=== PATIENT | female | born 2000 | race Two or more races ===

== ENCOUNTER 2022-11-27 15:40 | Outpatient (OUT) | payer OTHER, SELFPAY ==
[2022-11-27 16:36] LABS: Hematocrit 35.5 % (36.0-48.0); Hemoglobin 11.7 g/dL (12.0-16.0); Mean Corpuscular Hemoglobin 29.7 pg (26.7-34.0); Mean Corpuscular Volume 90.1 fL (81.0-99.0); Mean Platelet Volume 10.4 fL (9.5-13.5); Platelet Count 168 10^3/uL (150-450); Red Blood Count 3.94 10^6/uL (4.20-5.40); White Blood Count 13.2 10^3/uL (4.0-11.0)
[2022-11-27 16:50] LABS: Glucose 1 Hour 117 mg/dL
[2022-11-27 17:08] LABS: Band Neutrophils Absolute 0.5 10^3/uL (0.0-0.3); Eosinophils Absolute Manual 0.13 10^3/uL (0.00-0.70); Lymphocytes Absolute Manual 1.84 10^3/uL (1.20-3.80); Monocytes Absolute Manual 1.32 10^3/uL (0.30-0.80); Segmented Neut Absolute Manual 8.71 10^3/uL (1.4-6.5)
[2022-11-27 17:09] LABS: Metamyelocytes Absolute Manual 0.26
== END 2022-11-27 15:41 ==
LOC: LAB 15:40
PROVIDERS: PCP Obstetrics & Gynecology; Visit Provider Physician Assistant
DX: Z13.1 Encounter for screening for diabetes mellitus (principal)
CPT/HCPCS: 36415; 82950; 85007; 85025; 86850; 86900; 86901

== ENCOUNTER 2022-11-28 07:32 | Outpatient (RCR) | payer OTHER, SELFPAY ==
[2022-11-28 13:03] VITALS: BP 107/69; PULSE 94; RESP 16; TEMP 36.6; O2SAT 95
[2022-11-28] MEDS: RHO(D) IMMUNE GLOBULIN 1,500 UNIT SYRINGE 1500 UNIT IM (13:13)
--- NOTE | 2022-11-28 13:31 | PC.NURSE ---
1303: Pt. to [facility] amb per self. Seated in recliner. VSS. Blood type verified. Pt.given information about Rhophylac and questions addressed. Pt. medicated with Rhophylac 1500IU IM to left dorsal gluteal. Small amount of bleeding to site. Bandaid applied. Pt tolerated with minimal c/o pain. Remains in recliner for observation. Denies needs. 1330: Pt. without s&s of adverse reaction. Pt. d/c'd amb. to home.
== END 2022-12-07 23:59 | disposition home or self-care (01) ==
LOC: INF 07:32
PROVIDERS: PCP Obstetrics & Gynecology; Visit Provider Obstetrics & Gynecology
DX: O26.893 Other specified pregnancy related conditions, third trimester (principal); Z67.91 Unspecified blood type, Rh negative
CPT/HCPCS: 36415; 86850; 86900; 86901; 96372; J2790

== ENCOUNTER 2022-12-18 14:09 | Outpatient (OUT) | payer OTHER, SELFPAY ==
--- NOTE | 2022-12-18 14:09 | US_ITS ---
The [address] [address] Patient Name: SIDNEY CANDELARIO MRN: [id number] date: 2000 Sex: F Assigned Patient Location: US Current Patient Location: Accession/Order Number: [id number] Exam Date: 12/18/2022 14:10 Report Date: 12/18/2022 16:01 At the request of: MAGDA MCKENNA Procedure: US OB growth EXAMINATION: US OB growth HISTORY: SIZE INCONSISTENT WITH DATES COMPARISON: No relevant comparison available. FINDINGS: Heart Rate: 163.0 bpm Number: 1.0 Position: CEPHALIC Amniotic Fluid Volume: 10.7 cm Maximum Vertical Pocket: 3.5 cm BIOMETRY: BPD: 8.1 cm cm; 32 weeks 3 days; 9% HC: 30.7 cmcm; 34 weeks 1 days; 20% AC: 29.6 cm cm; 33 weeks 4 days; 40% FL: 6.6 cm cm; 34 weeks 0 days; 41% % EFW: 2241.9 grams; 33% FL/AC: 22.4 FL/BPD: 82.0 HC/AC: 1.0 GESTATIONAL AGE: Age by EDC: 34 weeks 0 days SAMIR by EDC: 01/29/2023 Age by US: 33 weeks 4 days SAMIR by US: 02/01/2023 US/US OB growth IMPRESSION: 1. Single live intrauterine with growth detailed above. Electronically authenticated by: CAMELIA MENDEZ Date: 12/18/2022 16:01
== END 2022-12-18 14:10 | disposition home or self-care (01) ==
LOC: US 14:09
PROVIDERS: PCP Obstetrics & Gynecology; Visit Provider Obstetrics & Gynecology
DX: O26.843 Uterine size-date discrepancy, third trimester (principal); Z3A.34 34 weeks gestation of pregnancy
CPT/HCPCS: 76816

== ENCOUNTER 2023-01-01 21:00 | Outpatient (REF) | payer OTHER, SELFPAY | END 2023-01-01 21:01 | disposition home or self-care (01) | LOC: LAB 21:00 | PROVIDERS: PCP Obstetrics & Gynecology; Visit Provider Obstetrics & Gynecology | DX: Z34.93 Encounter for supervision of normal pregnancy, unspecified, third trimester (principal) | CPT/HCPCS: 87081 ==

== ENCOUNTER 2023-01-22 04:55 | Inpatient (IN) | payer OTHER, SELFPAY ==
[2023-01-22] VITALS (49 sets, daily range): BP systolic 88–145; BP diastolic 49–79; PULSE 77–137; RESP 16; TEMP 30.9–37.4
[2023-01-22] MEDS: 0.9 % SODIUM CHLORIDE 1,000 ML 125 ML IV ×2 (05:41→12:52)
[2023-01-22 05:48] LABS: Hematocrit 36.8 % (36.0-48.0); Hemoglobin 12.3 g/dL (12.0-16.0); Mean Corpuscular HGB Conc 33.4 g/dL (29.9-35.2); Mean Corpuscular Volume 83.8 fL (81.0-99.0); Mean Platelet Volume 11.7 fL (9.5-13.5); Platelet Count 173 10^3/uL (150-450); Red Blood Count 4.39 10^6/uL (4.20-5.40); Red Cell Distribution Width 13.4 % (11.0-15.0); White Blood Count 12.9 10^3/uL (4.0-11.0)
[2023-01-22 05:58] LABS: Amphetamine Screen Urine NEGATIVE (NEGATIVE); Barbiturates Screen Urine NEGATIVE (NEGATIVE); Benzodiazepines Screen Urine NEGATIVE (NEGATIVE); Buprenorphine Screen Urine NEGATIVE (NEGATIVE); Cannabinoid Screen Urine NEGATIVE (NEGATIVE); Cocaine Screen Urine NEGATIVE (NEGATIVE); Methadone Screen Urine NEGATIVE (NEGATIVE); Methamphetamines Screen Urine NEGATIVE (NEGATIVE); Opiate Screen Urine NEGATIVE (NEGATIVE); Oxycodone Screen Urine NEGATIVE (NEGATIVE); Phencyclidine Screen Urine NEGATIVE (NEGATIVE); Tricyclic Antidepressant Urine NEGATIVE (NEGATIVE)
[2023-01-22] MEDS: OXYTOCIN/0.9 % SODIUM CHLORIDE 10 UNITS/500 ML PLAST..BAG 6 UNIT IV (06:40)
--- NOTE | 2023-01-22 07:23 | W.PC.ACHO ---
Registration Status: ADM IN Primary Language: Zimbabwean Preferred Language: Zimbabwean Active Medications Generic Name Dose Route Start Last Admin Trade Name Steve PRN Reason Stop Dose Admin Carboprost Tromethamine 250 mcg 01/22/23 04:58 Carboprost Tromethamine 250 Mcg/Ml 1 Ml Vial IM Q15M PRN Bleeding Sodium Chloride 1,000 mls @ 125 mls/hr 01/22/23 05:00 01/22/23 05:41 Sodium Chloride 0.9% 1,000 Ml IV 125 mls/hr .Q8H IRWIN Administration Oxytocin/Sodium Chloride 10 units in 500 mls @ 6 mls/hr 01/22/23 05:15 01/22/23 06:40 Pitocin 10 Unit/500 Ml-Ns IV 2 milliunit/min Q24H IRWIN 6 mls/hr Administration Protocol 2 MILLIUNIT/MIN Lidocaine 5 ml 01/22/23 04:58 Lidocaine Viscous 2% 15 Ml Topical Solution TOPICAL DIRECTED PRN Pain Lidocaine 1 ml 01/22/23 04:58 Lidocaine Hcl 1% 200 Mg/20 Ml Mdv INJ DIRECTED PRN Pain Methylergonovine Maleate 0.2 mg 01/22/23 04:58 Methylergonovine Maleate 0.2 Mg Tablet PO Q4H PRN Uterine Contractility/Contract Methylergonovine Maleate 0.2 mg 01/22/23 04:58 Methylergonovine Maleate 0.2 Mg/Ml Ampule IM ONCE PRN Uterine Contractility/Contract Misoprostol 600 mcg 01/22/23 04:58 Misoprostol 100 Mcg Tablet PO ONCE PRN Uterine Bleeding Misoprostol 800 mcg 01/22/23 04:58 Misoprostol 100 Mcg Tablet SL ONCE PRN Uterine Bleeding Misoprostol 1,000 mcg 01/22/23 04:58 Misoprostol 100 Mcg Tablet WV ONCE PRN Uterine Bleeding Ondansetron HCl 4 mg 01/22/23 04:58 Ondansetron Pf 4 Mg/2 Ml Vial IV Q6H PRN Nausea And Vomiting Ondansetron HCl 4 mg 01/22/23 04:58 Ondansetron 4 Mg Rapdis Tablet SL Q6H PRN Nausea And Vomiting Oxytocin 10 unit 01/22/23 04:58 Oxytocin 10 Unit/Ml Vial IM ONCE PRN Labor Pain Diet Category Date Time Status Clear Liquid Diet Diet 01/22/23 Breakfast Active Consults Category Date Time Status Consult to Anesthesiology Routine Cons 01/22/23 Ordered IV Insertion/Site Date of IV Line Insertion [20g 01/22/23 right Wrist] IV Insertion Time [20g right 05:30 Wrist] Neurology Patient orientation (short person,place,time,situation list)
[2023-01-22] MEDS: 0.9 % SODIUM CHLORIDE 1,000 ML 1000 ML IV (11:36)
[2023-01-22] MEDS: ROPIVACAINE HCL/PF 400 MG/200 ML PREMIX 6 MG EPIDURAL (12:52)
[2023-01-22] MEDS: FENTANYL CITRATE/PF 100 MCG/2 ML VIAL EPIDURAL ×2 (12:53→12:54)
--- NOTE | 2023-01-22 18:10 | PM.OBPRCVD ---
Procedure Intrapartal events: None Induction method: per pitocin protocol Delivery augmentation: rupture of membranes Delivery monitor: external FHT and external uterine Route of delivery: Laceration description: none Estimated blood loss (mL): 250 Anesthesia type: Epidural Disposition: floor Delivery date: 01/22/23 Gender: female presentation: vertex Placental delivery description: Spontaneous cord description: 3 Vessels and Nuchal Cord Stage 1 Duration Labor - Stage 1 Duration: 9 hours and 23 minutes
[2023-01-22] MEDS: OXYTOCIN/0.9 % SODIUM CHLORIDE 20 UNITS/1,000 ML PLAST..BAG 999 UNIT IV (19:40)
[2023-01-22] MEDS: IBUPROFEN 600 MG TABLET PO (20:02)
[2023-01-23] VITALS (7 sets, daily range): BP systolic 105–117; BP diastolic 61–75; PULSE 70–140; RESP 16; TEMP 36.4–36.9
[2023-01-23] MEDS: IBUPROFEN 600 MG TABLET PO ×2 (02:31→21:14)
[2023-01-23 05:48] LABS: Basophils Absolute Auto 0.1 10^3/uL (0.0-0.1); Basophils Percent Auto 0.4 % (0.2-2.0); Eosinophils Percent Auto 0.1 % (0.9-7.0); Hematocrit 30.6 % (36.0-48.0); Hemoglobin 10.2 g/dL (12.0-16.0); Immature Granulocytes Abs Auto 0.29 10^3/uL (0.00-0.03); Immature Granulocytes Pct Auto 1.7 % (0.0-0.5); Lymphocytes Absolute Auto 2.2 10^3/uL (1.2-3.8); Lymphocytes Percent Auto 13.1 % (20.5-60.0); Mean Corpuscular HGB Conc 33.3 g/dL (29.9-35.2); Mean Corpuscular Hemoglobin 28.2 pg (26.7-34.0); Mean Corpuscular Volume 84.5 fL (81.0-99.0); Mean Platelet Volume 11.4 fL (9.5-13.5); Monocytes Absolute Auto 1.6 10^3/uL (0.3-0.8); Monocytes Percent Auto 9.6 % (1.7-12.0); Neutrophils Absolute Auto 12.5 10^3/uL (1.4-6.5); Neutrophils Percent Auto 75.1 % (43.0-75.0); Platelet Count 152 10^3/uL (150-450); Red Blood Count 3.62 10^6/uL (4.20-5.40); Red Cell Distribution Width 13.5 % (11.0-15.0); White Blood Count 16.6 10^3/uL (4.0-11.0)
--- NOTE | 2023-01-23 07:14 | W.PC.ACHO ---
Registration Status: ADM IN Primary Language: Latvian Preferred Language: Latvian Active Medications Generic Name Dose Route Start Last Admin Trade Name Freq PRN Reason Stop Dose Admin Acetaminophen 650 mg 01/22/23 18:16 Acetaminophen 325 Mg Tablet PO Q6H PRN Mild Pain Al Hydroxide/Mg Hydroxide 2,400 mg 01/22/23 18:16 Magnesium Hydroxide 2,400 Mg/10 Ml Oral.Susp PO Q6H PRN Dyspepsia Benzocaine/Menthol 1 applic 01/22/23 18:16 Benzocaine/Menthol 85 Gram Bottle TOPICAL Q1H PRN Pain Carboprost Tromethamine 250 mcg 01/22/23 04:58 Carboprost Tromethamine 250 Mcg/Ml 1 Ml Vial IM 01/23/23 18:00 Q15M PRN Bleeding Docusate Sodium 100 mg 01/23/23 09:00 Docusate Sodium 100 Mg Capsule PO BID IRWIN Sodium Chloride 1,000 mls @ 125 mls/hr 01/22/23 05:00 01/22/23 12:52 Sodium Chloride 0.9% 1,000 Ml IV 125 mls/hr .Q8H IRWIN Administration Ibuprofen 600 mg 01/22/23 18:16 01/23/23 02:31 Ibuprofen 600 Mg Tablet PO 600 mg Q6H PRN Administration Moderate Pain Methylergonovine Maleate 0.2 mg 01/22/23 04:58 Methylergonovine Maleate 0.2 Mg Tablet PO 01/23/23 18:00 Q4H PRN Uterine Contractility/Contract Methylergonovine Maleate 0.2 mg 01/22/23 04:58 Methylergonovine Maleate 0.2 Mg/Ml Ampule IM 01/23/23 18:00 ONCE PRN Uterine Contractility/Contract Misoprostol 600 mcg 01/22/23 04:58 Misoprostol 100 Mcg Tablet PO 01/23/23 18:00 ONCE PRN Uterine Bleeding Misoprostol 800 mcg 01/22/23 04:58 Misoprostol 100 Mcg Tablet SL 01/23/23 18:00 ONCE PRN Uterine Bleeding Misoprostol 1,000 mcg 01/22/23 04:58 Misoprostol 100 Mcg Tablet NE 01/23/23 18:00 ONCE PRN Uterine Bleeding Ondansetron HCl 4 mg 01/22/23 04:58 Ondansetron Pf 4 Mg/2 Ml Vial IV Q6H PRN Nausea And Vomiting Ondansetron HCl 4 mg 01/22/23 04:58 Ondansetron 4 Mg Rapdis Tablet SL Q6H PRN Nausea And Vomiting Senna 17.2 mg 01/22/23 20:00 Sennosides 8.6 Mg Tablet PO QHS PRN Constipation Simethicone 80 mg 01/22/23 18:16 Simethicone 80 Mg Tab.Chew PO QID PRN Abdominal Distention Temazepam 15 mg 01/22/23 20:00 Temazepam 15 Mg Capsule PO QHS PRN Sleep Witch Claudette/Glycerin 1 each 01/22/23 18:16 Glycerin/Witch Claudette 1 Each Jar TOPICAL Q2H PRN Pain Diet Category Date Time Status Clear Liquid Diet Diet 01/22/23 Breakfast Active
--- NOTE | 2023-01-23 07:36 | P.OBPN_ITS ---
OB - PN: Subj Subjective Patient comments: no complaints [place] infant status: doing well Exam Constitutional Vital Signs, click to edit/add: Last Vital Signs Temp 98.5 F 01/23/23 02:23 Pulse 70 01/23/23 02:23 Resp 16 01/22/23 07:30 BP 105/61 01/23/23 02:23 Documenting provider has reviewed patient's vital signs: yes Common normals: no apparent distress Respiratory Common normals: clear to auscultation bilaterally Cardio Common normals: regular rate and regular rhythm GI Common normals: Normal to inspection, nondistended, normoactive bowel sounds present Extremity Common normals: no clubbing, cyanosis or edema and no calf tenderness Results Labs Labs: Short CBC 01/23/23 Range/Units 05:30 WBC 16.6 H (4.0-11.0) 10^3/uL Hgb 10.2 L (12.0-16.0) g/dL Hct 30.6 L (36.0-48.0) % Plt Count 152 (150-450) 10^3/uL OB - PN: A/P Plan - Vaginal Delivery day: 1 Plan: routine care Time Spent with Patient Time: Total time spent is greater than 50% in coordination of care (as documented) at patient's floor/unit and/or counseling patient: Total time spent with greater than 50% in coordination of care (as documented) at patient's floor/unit and/or counseling patient: less than 15 minutes
[2023-01-23] MEDS: DOCUSATE SODIUM 100 MG CAPSULE PO ×2 (09:01→21:14)
--- NOTE | 2023-01-23 16:42 | PC.NURSE ---
LC into room to assist with latching as baby rooting but does not sustain latch. Much education offered and pt receptive to all. Demo for positioning yet still does not latch. Mom voices waivering committment to as not totally in to , just wanted to try . Education completed and parents opt to continue trying at this time.
--- NOTE | 2023-01-23 19:12 | W.PC.ACHO ---
Registration Status: ADM IN Primary Language: Malaysian Preferred Language: Malaysian Report received at 1900 Active Medications Generic Name Dose Route Start Last Admin Trade Name Freq PRN Reason Stop Dose Admin Acetaminophen 650 mg 01/22/23 18:16 Acetaminophen 325 Mg Tablet PO Q6H PRN Mild Pain Al Hydroxide/Mg Hydroxide 2,400 mg 01/22/23 18:16 Magnesium Hydroxide 2,400 Mg/10 Ml Oral.Susp PO Q6H PRN Dyspepsia Benzocaine/Menthol 1 applic 01/22/23 18:16 Benzocaine/Menthol 85 Gram Bottle TOPICAL Q1H PRN Pain Docusate Sodium 100 mg 01/23/23 09:00 01/23/23 09:01 Docusate Sodium 100 Mg Capsule PO 100 mg BID IRWIN Administration Sodium Chloride 1,000 mls @ 125 mls/hr 01/22/23 05:00 01/22/23 12:52 Sodium Chloride 0.9% 1,000 Ml IV 125 mls/hr .Q8H IRWIN Administration Ibuprofen 600 mg 01/22/23 18:16 01/23/23 02:31 Ibuprofen 600 Mg Tablet PO 600 mg Q6H PRN Administration Moderate Pain Ondansetron HCl 4 mg 01/22/23 04:58 Ondansetron Pf 4 Mg/2 Ml Vial IV Q6H PRN Nausea And Vomiting Ondansetron HCl 4 mg 01/22/23 04:58 Ondansetron 4 Mg Rapdis Tablet SL Q6H PRN Nausea And Vomiting Senna 17.2 mg 01/22/23 20:00 Sennosides 8.6 Mg Tablet PO QHS PRN Constipation Simethicone 80 mg 01/22/23 18:16 Simethicone 80 Mg Tab.Chew PO QID PRN Abdominal Distention Temazepam 15 mg 01/22/23 20:00 Temazepam 15 Mg Capsule PO QHS PRN Sleep Witch Claudette/Glycerin 1 each 01/22/23 18:16 Glycerin/Witch Claudette 1 Each Jar TOPICAL Q2H PRN Pain Respiratory Oxygen Delivery Method Room Air Oxygen Delivery Method Room Air
[2023-01-24 08:17] VITALS: BP 115/66; PULSE 73
[2023-01-24 08:30] VITALS: RESP 16; TEMP 36.7
--- NOTE | 2023-01-24 08:39 | PM.OBPN ---
OB - PN: Subj Subjective Patient comments: no complaints [place] status: doing well Exam Constitutional Vital Signs, click to edit/add: Last Vital Signs Temp 97.5 F L 01/23/23 22:51 Pulse 73 01/24/23 08:17 Resp 16 01/23/23 23:00 BP 115/66 01/24/23 08:17 O2 Del Method Room Air 01/23/23 23:00 Documenting provider has reviewed patient's vital signs: yes Common normals: no apparent distress Respiratory Common normals: normal respiratory effort and clear to auscultation bilaterally Cardio Common normals: regular rate and regular rhythm GI Common normals: Normal to inspection, nondistended, normoactive bowel sounds present Extremity Common normals: no clubbing, cyanosis or edema and no calf tenderness OB - PN: A/P Plan - Vaginal Delivery day: 2 Plan: routine care, discharge home and follow up 6 weeks Time Spent with Patient Time: Total time spent is greater than 50% in coordination of care (as documented) at patient's floor/unit and/or counseling patient: Total time spent with greater than 50% in coordination of care (as documented) at patient's floor/unit and/or counseling patient: less than 15 minutes
[2023-01-24] MEDS: IBUPROFEN 600 MG TABLET PO (09:44)
[2023-01-24] MEDS: DOCUSATE SODIUM 100 MG CAPSULE PO (09:44)
[2023-01-24] MEDS: MEASLES,MUMPS,RUBELLA VACC/PF 0.5 ML VIAL SQ (13:48)
== END 2023-01-24 14:00 | disposition home or self-care (01) | DRG 807 ==
PROVIDERS: Admitting Provider Obstetrics & Gynecology; PCP Obstetrics & Gynecology; Visit Provider Obstetrics & Gynecology
DX: O69.81X0 Labor and delivery complicated by cord around neck, without compression, not applicable or unspecified (principal); Z37.0 Single live birth; Z3A.39 39 weeks gestation of pregnancy
CPT/HCPCS: 36415; 59050; 59410; 80307; 85025; 85027; 86850; 86900; 86901; 90471; 90707; 96374; 96376

== ENCOUNTER 2023-01-29 08:07 | Outpatient (OUT) | payer OTHER, SELFPAY ==
[2023-01-29 15:58] VITALS: BP 123/77; PULSE 76; RESP 18; TEMP 36.9; O2SAT 98
--- NOTE | 2023-01-29 16:03 | PC.NURSE ---
Latisha arrives stating feels well except breats are engorged and painful. Stopped pumping to feed last pm, as she desires to no longer provide breast milk for infant feedings. Has been pumping every 3 ours obtaining 3 oz combined for feeds when pt and decided to use formula only. Is now very uncomfortable. Breasts firm to palpation, not red or leaking. Discussed drying up milk and handout for same given. Pt to use ice, Motrin, green cabbage and sports bra to aid in process. Voiced understanding of all.
== END 2023-01-29 13:50 | disposition home or self-care (01) ==
PROVIDERS: PCP Obstetrics & Gynecology; Visit Provider Obstetrics & Gynecology
DX: Z39.2 Encounter for routine postpartum follow-up (principal)

== ENCOUNTER 2023-09-05 13:47 | Outpatient (OUT) | payer OTHER, SELFPAY ==
--- NOTE | 2023-09-05 13:50 | US_ITS ---
[address] [address] Patient Name: SIDNEY CANDELARIO MRN: [id number] date: 2000 Sex: F Assigned Patient Location: [facility] Current Patient Location: [facility] Accession/Order Number: [id number] Exam Date: 09/05/2023 13:51 Report Date: 09/05/2023 14:27 At the request of: MAGDA MCKENNA Procedure: US OB transvaginal EXAMINATION: US OB transvaginal HISTORY: MISSED MENSES COMPARISON: No relevant comparison available. FINDINGS: Transvaginal images Travis intrauterine gestation Gestational sac: 3.54 cm, 8 weeks 5 days CRL: 1.76 cm, 8 weeks 2 days Yolk sac: 4.1 mm Heart rate: 170 beats minute Cervix: Closed, 3.5 cm. The uterus is normal, anteverted, anteflexed The ovaries are normal Clinical age: 9 weeks 5 days Clinical SAMIR: 04/04/2024 Ultrasound age: 8 weeks 2 days Ultrasound SAMIR: 04/14/2024 US/US OB transvaginal IMPRESSION: Viable travis intrauterine gestation measuring 8 weeks 2 days Electronically authenticated by: ANEL GIBBONS Date: 09/05/2023 14:27
== END 2023-09-05 13:48 | disposition home or self-care (01) ==
LOC: NOMS 13:48
PROVIDERS: PCP Obstetrics & Gynecology; Visit Provider Obstetrics & Gynecology
DX: Z34.91 Encounter for supervision of normal pregnancy, unspecified, first trimester (principal); N92.6 Irregular menstruation, unspecified; Z3A.08 8 weeks gestation of pregnancy
CPT/HCPCS: 76817

== ENCOUNTER 2023-10-29 14:53 | Outpatient (REF) | payer OTHER, SELFPAY | END 2023-10-29 14:54 | disposition home or self-care (01) | LOC: LAB 14:53 | PROVIDERS: PCP Obstetrics & Gynecology; Visit Provider Physician Assistant | DX: Z01.419 Encounter for gynecological examination (general) (routine) without abnormal findings (principal) | CPT/HCPCS: G0145 ==

== ENCOUNTER 2023-11-27 14:03 | Outpatient (OUT) | payer OTHER, SELFPAY ==
--- NOTE | 2023-11-27 14:06 | US_ITS ---
[address] [address] Patient Name: SIDNEY CANDELARIO MRN: [id number] date: 2000 Sex: F Assigned Patient Location: [facility] Current Patient Location: Accession/Order Number: [id number] Exam Date: 11/27/2023 14:06 Report Date: 11/28/2023 15:52 At the request of: KRISTINE BEJARANO Procedure: US OB cervical length EXAMINATION: US OB anatomy, US OB cervical length HISTORY: ANATOMY COMPARISON: No relevant comparison available. TECHNIQUE: Transabdominal sonographic examination was performed for obstetrical and evaluation. FINDINGS: Number: 1 Heart Rate: 143 H.B. /min Amniotic Fluid Volume: Subjectively normal Placental Location: Posterior with lower margin 3.8 cm from os. Cervix Length: 4.8 cm, closed. ANATOMY: Normal Structures -cerebellum, choroid plexus, cisterna magna, lateral cerebral ventricles, orbits, midline falx, hard palate, four-chamber heart, RVOT, LVOT, stomach, kidneys, bladder, umbilical cord insertion into abdomen, three-vessel cord, cervical spine, thoracic spine, lumbar spine, sacral spine, right upper extremity, left upper extremity, right lower extremity, left lower extremity. SUBOPTIMALLY SEEN: None ABNORMALITIES: None BIOMETRY: BPD: 4.5 cm; 19 weeks 5 days; 32% HC: 17.0 cm; 19 weeks 4 days; 20% AC: 14.9 cm; 20 weeks 1 day; 46% FL: 3.2 cm; 20 weeks 0 days; 39% EFW:330 g; 41% FL/AC: 21.63 FL/BPD: 71.15 HC/AC: 1.14 GESTATIONAL AGE: Age by EDC: 20 weeks 1 day SAMIR by EDC: 04/14/2024 Age by current US: 19 weeks 6 days SAMIR by current US: 04/16/2024 US/US OB cervical length IMPRESSION: 1. Single live intrauterine with growth detailed above. Electronically authenticated by: CAMELIA MENDEZ Date: 11/28/2023 15:52
--- NOTE | 2023-11-27 14:06 | US_ITS ---
[address] [address] Patient Name: SIDNEY CANDELARIO MRN: [id number] date: 2000 Sex: F Assigned Patient Location: [facility] Current Patient Location: Accession/Order Number: [id number] Exam Date: 11/27/2023 14:06 Report Date: 11/28/2023 15:52 At the request of: KRISTINE BEJARANO Procedure: US OB anatomy EXAMINATION: US OB anatomy, US OB cervical length HISTORY: ANATOMY COMPARISON: No relevant comparison available. TECHNIQUE: Transabdominal sonographic examination was performed for obstetrical and evaluation. FINDINGS: Number: 1 Heart Rate: 143 H.B. /min Amniotic Fluid Volume: Subjectively normal Placental Location: Posterior with lower margin 3.8 cm from os. Cervix Length: 4.8 cm, closed. ANATOMY: Normal Structures -cerebellum, choroid plexus, cisterna magna, lateral cerebral ventricles, orbits, midline falx, hard palate, four-chamber heart, RVOT, LVOT, stomach, kidneys, bladder, umbilical cord insertion into abdomen, three-vessel cord, cervical spine, thoracic spine, lumbar spine, sacral spine, right upper extremity, left upper extremity, right lower extremity, left lower extremity. SUBOPTIMALLY SEEN: None ABNORMALITIES: None BIOMETRY: BPD: 4.5 cm; 19 weeks 5 days; 32% HC: 17.0 cm; 19 weeks 4 days; 20% AC: 14.9 cm; 20 weeks 1 day; 46% FL: 3.2 cm; 20 weeks 0 days; 39% EFW:330 g; 41% FL/AC: 21.63 FL/BPD: 71.15 HC/AC: 1.14 GESTATIONAL AGE: Age by EDC: 20 weeks 1 day SAMIR by EDC: 04/14/2024 Age by current US: 19 weeks 6 days SAMIR by current US: 04/16/2024 US/US OB anatomy IMPRESSION: 1. Single live intrauterine with growth detailed above. Electronically authenticated by: CAMELIA MENDEZ Date: 11/28/2023 15:52
== END 2023-11-27 14:04 | disposition home or self-care (01) ==
LOC: NOMS 14:04
PROVIDERS: PCP Obstetrics & Gynecology; Visit Provider Physician Assistant
DX: Z36.89 Encounter for other specified antenatal screening (principal); Z3A.19 19 weeks gestation of pregnancy
CPT/HCPCS: 76805; 76817

== ENCOUNTER 2024-01-22 12:19 | Outpatient (OUT) | payer SELFPAY ==
--- OUTSIDE RECORDS SUMMARY | 2024-01-22 12:35 | XMS_ITS | CCD ---
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, DR MAN Attending Unavailable BALA ., DR MAN Consulting Unavailable ZIEBER, DR CAMELIA Isabel Consulting Unavailable Roslyn Valdes Primary Care Physician Sahil BUTLER Consulting Unavailable Jona Amaral Admitting Unavailable Jona Amaral Attending Unavailable Sahil BUTLER Consulting Unavailable Sahil BUTLER Consulting Unavailable Roslyn Valdes Admitting Unavailable Esperanza SONG Attending Unavailable MAGDA LIMON Attending Unavailable DARCI, KRISTINE Attending Unavailable MAGDA LIMON Attending Unavailable BALAMAGDA Attending Unavailable Medications Current Medications Medication Drug Class(es) Dates Sig (Normalized) Sig (Original) cephalexin 500 mg oral capsule (1 source) Cephalosporin Antibacterial Start: 10-19-2022 End: 10-23-2022 take 1 capsule by mouth every six hours Keflex 500 mg Cap 500 mg = 1 cap(s), Oral, q6hr, X 4 day(s), # 16 cap(s), Refills(s) 0, Pharmacy: [facility], 152, cm, 10/18/22 13:33:00 EDT, Height/Length Dosing, 48, kg, 05/11/23 13:33:00 EDT, Weight Dosing Start Date: 10/19/22 Stop Date: 10/23/22 Status: Ordered Problems Problem Classification Problem Date Documented Date Episodic/Chronic Fluid and electrolyte disorders (1 source) Hypokalemia; Translations: [Hypokalemia] Onset: 10-18-2022 Episodic Immunizations and screening for infectious disease (1 source) Contact with and (suspected) exposure to infections with a predominantly sexual mode of transmission; Translations: [CONTCT W EXPOS INFECT SEXUAL TRNSMS] Onset: 08-31-2022 Episodic Menstrual disorders (4 sources) Irregular menstruation, unspecified; Translations: [IRREGULAR MENSTRUATION UNSPECIFIED] Onset: 07-23-2022 Chronic Other female genital disorders (4 sources) Other specified noninflammatory disorders of vagina; Translations: [OTH SPEC NONINFLAMMATORY D/O VAGINA] Onset: 08-23-2022 Episodic Other hematologic conditions (1 source) Abnormal finding on evaluation procedure; Translations: [Other specified abnormalities of plasma proteins] Onset: 10-18-2022 Episodic Other and delivery including normal (13 sources) Encounter for supervision of normal , unspecified, second trimester; Translations: [Encounter for supervision of other normal , first trimester] Onset: 07-03-2022 Episodic Other screening for suspected conditions (not mental disorders or infectious disease) (2 sources) Encounter for other specified screening; Translations: [Encounter for other screening for genetic and chromosomal anomalies] Onset: 07-27-2022 Episodic Other upper respiratory infections (1 source) Acute pharyngitis; Translations: [Acute pharyngitis, unspecified] Onset: 06-18-2023 Episodic Residual codes; unclassified (1 source) 21 weeks gestation of ; Translations: [21 WEEKS GESTATION OF ] Onset: 10-11-2022 Episodic Syncope (1 source) Syncope and collapse; Translations: [Syncope and collapse] Onset: 10-18-2022 Episodic Unclassified (3 sources) Decreased body mass index 05-26-2020 Unclassified (3 sources) Patient encounter status 05-25-2020 Urinary tract infections (1 source) Urinary tract infectious disease; Translations: [Urinary tract infection, site not specified] Onset: 10-18-2022 Episodic Viral infection (1 source) Viral disease; Translations: [Viral infection, unspecified] Onset: 06-18-2023 Episodic Results Test Name Value Interpretation Reference Range Facility Nursing Assessmenton 023 Nursing Assessment [id number] #1.00CD:127 Normal [facility] Discharge Instructionson Discharge Instructions [id number] #1.00CD:127 Normal [facility] C Urineon 10-20-2022 Bacteria identified Cx Nom (U) Microbiology PROCEDURE: Urine Culture [R1] SOURCE: U CleanCatch BODY SITE: COLLECTED DATE/TIME: 10/18/2022 13:37 EDT RECEIVED DATE/TIME: 10/18/2022 14:02 EDT START DATE/TIME: 10/18/2022 14:02 EDT FREE TEXT SOURCE: Favian Ahumada DO, DO, Favian Chakraborty FINAL REPORTS Final Report [] Verified Date/Time: 10/20/2022 11:12 EDT 200 cfu/ml Mixed skin contaminants Performing Locations R1: This test was performed at: [facility], [address] [place] [address], [facility] , , [facility] Comment on above: Performed By: #### 2 [id number], [id number] ####[facility] [address] [place] [id number] Cortisolon 10-20-2022 Cortisol [Mass/Vol] 18.4 microgram/dL Invalid Interpretation Code 6.2-19.4 [facility] Comment on above: Result Comment: Yudith jeter Note: The reference interval and flagging for this test is for an AM collection. If this is a PM collection please use: Cortisol PM: 2.3-11.9 Performed at: [facility] [address] [id number] PhD Buck Montes Performed By: #### 2 [id number] #### [facility] [address] [place], [place] [id number] Auto Diffon 10-19-2022 Basophils/100 WBC (Bld) 0.4 % Normal 0.0-2.0 F [facility] Comment on above: Order Comment: Order Added by Discern Expert. Performed By: #### 2 [id number] #### [facility] [address] [place] [address] Basophils/Leukocytes Auto (Bld) [Pure # fraction] 0.1 E9/L Normal 0.0-0.2 [facility] Comment on above: Order Comment: Order Added by Discern Expert. Performed By: #### 2 [id number] #### [facility] [address] [place] [address] Eosinophils/100 WBC (Bld) 0.6 % Normal 0.0-8.0 [facility] Comment on above: Order Comment: Order Added by Linda Expert. Performed By: #### 2 [id number] #### [facility] [address] [place] [address] Eosinophils/Leukocytes Auto (Bld) [Pure # fraction] 0.1 E9/L Normal 0.0-0.5 [facility] Comment on above: Order Comment: Order Added by Linda Expert. Performed By: #### 2 [id number] #### [facility] [address] [place] [address] Lymphocytes/100 WBC (Bld) 12.3 % Low 14.0-50.0 [facility] Comment on above: Order Comment: Order Added by Discern Expert. Performed By: #### 2 [id number] #### [facility] [address] [place] [address] Lymphocytes/Leukocytes Auto (Bld) [Pure # fraction] 2.0 E9/L Normal 1.0-4.0 [facility] Comment on above: Order Comment: Order Added by Discern Expert. Performed By: #### 2 [id number] #### [facility] [address] [place] [address] Monocytes/100 WBC (Bld) 8.5 % Normal 4.0-14.0 [facility] Comment on above: Order Comment: Order Added by Discern Expert. Performed By: #### 2 [id number] #### [facility] [address] [place] [address] Monocytes/Leukocytes Auto (Bld) [Pure # fraction] 1.4 E9/L High 0.2-1.0 [facility] Comment on above: Order Comment: Order Added by Discern Expert. Performed By: #### 2 [id number] #### [facility] [address] [place] [address] Neutrophils/100 WBC (Bld) 78.2 % High 36.0-75.0 [facility] Comment on above: Order Comment: Order Added by Discern Expert. Performed By: #### 2 [id number] #### [facility] [address] [place] [address] Neutrophils/Leukocytes Auto (Bld) [Pure # fraction] 12.7 E9/L High 2.0-7.5 [facility] Comment on above: Order Comment: Order Added by Discern Expert. Performed By: #### 2 [id number] #### [facility] [address] [place] [address] BMPon 10-19-2022 Anion gap [Moles/Vol] 10 mmol/L Normal 6-16 [facility] Comment on above: Performed By: #### 2 [id number] #### [facility] [address] [place] [address] Calcium [Mass/Vol] 8.0 mg/dL Low 8.9-11.1 [facility] Comment on above: Performed By: #### 2 [id number] #### [facility] [address] [place] [address] Chloride [Moles/Vol] 106 mmol/L Normal 101-111 [facility] Comment on above: Performed By: #### 2 [id number] #### [facility] [address] [place] [address] CO2 [Moles/Vol] 23 mmol/L Normal 21-31 [facility] Comment on above: Performed By: #### 2 [id number] #### [facility] [address] [place] [address] Creatinine [Mass/Vol] 0.5 mg/dL Normal 0.5-1.3 [facility] Comment on above: Performed By: #### 2 [id number] #### [facility] [address] [place] [address] Glucose [Mass/Vol] 82 mg/dL Normal 55-199 [facility] Comment on above: Result Comment: If t his glucose result represents a fasting glucose, interpretation should refer to the following reference range: 55-99 mg/dL Performed By: #### 2 [id number] #### [facility] [address] [place] [address] Potassium [Moles/Vol] 3.6 mmol/L Normal 3.5-5.3 [facility] Comment on above: Performed By: #### 2 509202 #### [facility] [address] [place] [address] Sodium [Moles/Vol] 135 mmol/L Normal 135-145 [facility] Comment on above: Performed By: #### 2 271712 #### [facility] [address] [place] [address] Urea nitrogen [Mass/Vol] 5 mg/dL Normal 5-21 [facility] Comment on above: Performed By: #### 2 [id number] #### [facility] [address] [place] [address] Urea nitrogen/Creatinine [Mass ratio] 10 No Units Normal 10-20 [facility] Comment on above: Performed By: #### 2 [id number] #### [facility] [address] [place] [address] CBC w/ Auto Diffon 3 Erythrocyte distribution width (RBC) [Ratio] 13.6 % Normal 10.9-14.2 [facility] Comment on above: Performed By: #### 2 [id number] #### [facility] [address] [place] [address] Hematocrit (Bld) [Volume fraction] 34.1 % Normal 34.0-46.0 [facility] Comment on above: Performed By: #### 2 810730 #### [facility] [address] [place] [address] Hemoglobin (Bld) [Mass/Vol] 11.3 g/dL Low 12.0-16.0 [facility] Comment on above: Performed By: #### 2 851671 #### [facility] [address] [place] [address] MCH (RBC) [Entitic mass] 30.3 pg Normal 27.0-34.0 [facility] Comment on above: Performed By: #### 2 [id number] #### [facility] [address] [place] [address] MCHC (RBC) [Mass/Vol] 33.2 g/dL Normal 31.4-36.0 [facility] Comment on above: Performed By: #### 2 [id number] #### [facility] [address] [place] [address] MCV (RBC) [Entitic vol] 91.3 fL Normal 80.0-100.0 F [facility] Comment on above: Performed By: #### 2 [id number] #### [facility] [address] [place] [address] Platelet mean volume (Bld) [Entitic vol] 8.9 fL Normal 6.4-10.8 [facility] Comment on above: Performed By: #### 2 [id number] #### [facility] [address] [place] [address] Platelets (Bld) [#/Vol] 146.0 E9/L Low 150.0-500.0 [facility] Comment on above: Performed By: #### 2 [id number] #### [facility] [address] [place] [address] RBC (Bld) [#/Vol] 3.7 E12/L Low 4.3-5.9 [facility] Comment on above: Performed By: #### 2 [id number] #### [facility] [address] [place] [address] WBC corrected for nucl RBC Auto (Bld) [#/Vol] 16.3 E9/L High 4.0-11.0 [facility] Comment on above: Performed By: #### 2 [id number] #### [facility] [address] [place] [address] CHEMISTRYOrdered By: SYSTEM SYSTEM on 10-19-2022 Anion gap [Moles/Vol] 10 mmol/L Normal 6 - 16 mEq/L [facility] Calcium [Mass/Vol] 8.0 mg/dL Low 8.9 - 11. 1 mg/dL [facility] Chloride [Moles/Vol] 106 mmol/L Normal 101 - 1 11 mmol/L [facility] CO2 [Moles/Vol] 23 mmol/L Normal 21 - 31 mmol/L [facility] Creatinine [Mass/Vol] 0.5 mg/dL Normal 0.5 - 1.3 mg/dL [facility] GFR/1.73 sq M.predicted among non-blacks MDRD (S/P/Bld) [Vol rate/Area] 138 mL/min/1.73 m2 Normal >=59mL/min/1 .73 m2 [facility] Chem S Glucose [Mass/Vol] 82 mg/dL Normal 55 - 199 mg/dL [facility] Magnesium [Mass/Vol] 1.7 mg/dL Normal 1.3 - 2 .4 mg/dL [facility] Phosphate [Mass/Vol] 3.8 mg/dL Normal 1.9 - 4 .6 mg/dL [facility] Potassium [Moles/Vol] 3.6 mmol/L Normal 3.5 - 5.3 mmol/L [facility] Sodium [Moles/Vol] 135 mmol/L Normal 135 - 145 mmol/L [facility] Urea nitrogen [Mass/Vol] 5 mg/dL Normal 5 - 21 mg/d L [facility] Urea nitrogen/Creatinine [Mass ratio] 10 mg/mg Normal 10 - 20 [facility] Troponin I.cardiac [Mass/Vol] 48.10 pg/mL Invalid Interpretation Code 10.10 - 27.10 pg/mL [facility] Comment on above: Result Comment: Crit ical Result verified by previous result\ Critical Result [id number] Called to ROBERTA CAMPOS at 3N by NICK MCCLURE and read back for confirmation at 10/19/2022 01:32:38 Discharge Note-Nursingon Discharge Note-Nursing SIDNEY CANDELARIO :2000 Visit Date:10/18/2022 Inpatient Discharge Instructions Your Care Team Admitting Physician - Cristin MOSS, Jona Rivera Consulting Physician - Sahil Butler MD Reason for Your Visit Dizziness Your Diagnosis Near syncope UTI (urinary tract infection) Hypokalemia Elevated troponin Dizziness Tests Performed Acetaminophen Level Automated Diff Basic Metabolic Panel BMP CBC w/ Auto Diff Cortisol -- Results Pending -- Drug Screen Urine eGFR Ethanol Level Magnesium Level Phosphorus Level PT & PTT Salicylate Level Troponin Troponin 0 Hr. Troponin 3 Hr. Troponin 6 Hr. Troponin 9 Hr. TSH With T4fr Reflex UA With Cult Reflex Echo Transthoracic Complete XR Chest Single View Please visit your patient portal for your results or contact your primary care physician. This Is Your Medications List cephalexin (Keflex 500 mg Cap) [Image Removed: STOP]Stop taking these medications ibuprofen (ibuprofen 400 mg Tab) Discharge Vitals Temperature (Oral) 36.7 ?C Heart Rate (Monitored) 101 Respiratory Rate 20 Blood Pressure 102/65 Blood Pressure 96/60(Standing) Blood Pressure 96/59(Supine) Height 152.4 cm Weight 49.5 kg BMI 21.23 What to do next Instructions From Your Doctor Event Name Event Result Discharge Activity Resume normal activities in 24 hours Discharge Diet(s) Regular Pending Diagnostic Test Results None [facility] Follow Up Appointments after Discharge Follow Up with Sahil Butler MD When: Within 2 weeks Where: [address] [place] [address] [phone] Follow Up with Roslyn Valdes MD, [facility], MED When: Within 2 to 4 days Where: [phone] Medications What How Much When Instructions Next Dose New cephalexin (Keflex 500 mg Cap) 1 Capsules By Mouth Every 6 hours Duration: 4 Days Pickup at [facility] Pharmacy Information [facility]: [address] [place], [place] [id number] [phone] What How Much When Comments Stop Taking ibuprofen (ibuprofen 400 mg Tab) 1 Tablets By Mouth Every 6 hours as needed for for pain Test Results CBC BMP WBC: 16.3 E9/L High (10/19/22 05:47:00) Glucose Lvl: 82 mg/dL (10/19/22 05:47:00) RBC: 3.7 E12/L Low (10/19/22 05:47:00) BUN: 5 mg/dL (10/19/22 05:47:00) HGB: 11.3 gm/dL Low (10/19/22 05:47:00) Creatinine: 0.5 mg/dL (10/19/22 05:47:00) Hct: 34.1 % (10/19/22 05:47:00) BUN/Creat Ratio: 10 (10/19/22 05:47:00) MCV: 91.3 fL (10/19/22 05:47:00) Sodium Lvl: 135 mmol/L (10/19/22 05:47:00) MCH: 30.3 pg (10/19/22 05:47:00) Potassium Lvl: 3.6 mmol/L (10/19/22 05:47:00) MCHC: 33.2 gm/dL (10/19/22 05:47:00) Chloride: 106 mmol/L (10/19/22 05:47:00) RDW: 13.6 % (10/19/22 05:47:00) CO2: 23 mmol/L (10/19/22 05:47:00) Platelet: 146 E9/L Low (10/19/22 05:47:00) AGAP: 10 mEq/L (10/19/22 05:47:00) MPV: 8.9 fL (10/19/22 05:47:00) Calcium Lvl: 8 mg/dL Low (10/19/22 05:47:00) Allergies No Known Allergies Problems Ongoing - Any problem that you are currently receiving treatment for. BMI (body mass index), pediatric, less than 5th percentile for age Well child check Education Materials Urinary Tract Infection, Adult A urinary tract infection (UTI) is an infection of any part of the urinary tract. The urinary tract includes the kidneys, ureters, bladder, and urethra. These organs make, store, and get rid of urine in the body. An upper UTI affects the ureters and kidneys. A lower UTI affects the bladder and urethra. What are the causes? Most urinary tract infections are caused by bacteria in your genital area around your urethra, where urine leaves your body. These bacteria grow and cause inflammation of your urinary tract. What increases the risk? You are more likely to develop this condition if: ? You have a urinary catheter that stays in place. ? You are not able to control when you urinate or have a bowel movement (incontinence). ? You are female and you: ? Use a spermicide or diaphragm for control. ? Have low estrogen levels. ? Are . ? You have certain genes that increase your risk. ? You are sexually active. ? You take antibiotic medicines. ? You have a condition that causes your flow of urine to slow down, such as: ? An enlarged prostate, if you are male. ? Blockage in your urethra. ? A kidney stone. ? A nerve condition that affects your bladder control (neurogenic bladder). ? Not getting enough to drink, or not urinating often. ? You have certain medical conditions, such as: ? Diabetes. ? A weak disease-fighting system (immunesystem). ? Sickle cell disease. ? Gout. ? Spinal cord injury. What are the signs or symptoms? Symptoms of this condition include: (more content not included)... Normal [facility] ED Clinical Summaryon 2022 ED Clinical Summary [place] [id number] ED Clinical Summary Person Information Name: SIDNEY CANDELARIO [facility] Age: 22 Years : 2000 Sex: Female Language: Irish PCP: Roslyn Valdes MD Marital Status: Visit Id: Visit Reason: Dizziness; 25 WK PREG-DIZZINESS, FEELING LIKE SHES GONNA PASS OUT Speciality: Acuity: 3 Enc Type: Emergency Med Service: Emergency Arrival: 10/18/2022 13:27:27 Discharge: 10/18/2022 22:10:16 LOS: 000 08:43 Checkin: 10/18/2022 13:27:27 Checkout: 10/18/2022 22:10:16 Dispo Type: Home (Routine DC) EVENTS: Event Name Event Status Request Date/Time Start Date/Time Complete Date/Time Arrive Complete 10/18/2022 13:27:27 10/18/2022 13:27:27 10/18/2022 13:27:27 Document Home Meds Request 10/18/2022 13:27:27 Triage Complete 10/18/2022 13:27:27 10/18/2022 13:33:10 10/18/2022 13:33:10 EKG Complete 10/18/2022 13:32:23 10/18/2022 14:05:48 Pending Labs Complete 10/18/2022 13:34:42 10/18/2022 13:57:38 Lab Complete 10/18/2022 13:34:42 10/18/2022 13:57:38 Urine Collect Complete 10/18/2022 13:34:42 10/18/2022 13:57:38 Pending Labs Inlab 10/18/2022 13:45:38 10/18/2022 13:45:38 Lab Inlab 10/18/2022 13:45:38 10/18/2022 13:45:38 Bed Assign Complete 10/18/2022 13:53:37 10/18/2022 13:53:37 10/18/2022 13:53:37 Dr Exam Complete 10/18/2022 13:53:37 10/18/2022 14:07:28 10/18/2022 14:07:28 RN Exam Complete 10/18/2022 13:53:37 10/18/2022 14:11:51 10/18/2022 14:11:51 Registration Complete 10/18/2022 14:07:28 10/18/2022 14:31:53 10/18/2022 14:31:53 Meds Admin Complete 10/18/2022 14:20:00 10/18/2022 14:34:02 Pending Labs Complete 10/18/2022 14:20:00 10/18/2022 18:15:52 Lab Complete 10/18/2022 14:20:00 10/18/2022 15:09:48 Patient Care Request 10/18/2022 14:20:00 RT Request 10/18/2022 14:20:00 X-Ray Complete 10/18/2022 14:20:00 10/18/2022 14:31:36 10/18/2022 15:03:46 Reg Complete Request 10/18/2022 14:31:53 Reg Bed Request Complete 10/18/2022 14:31:53 10/18/2022 14:31:53 10/18/2022 14:31:53 Pending Labs Complete 10/18/2022 14:43:48 10/18/2022 14:43:48 10/18/2022 14:58:34 Lab Complete 10/18/2022 14:43:48 10/18/2022 14:43:48 10/18/2022 14:58:34 Wet Read Request 10/18/2022 15:03:46 Pending Labs Complete 10/18/2022 15:09:48 10/18/2022 15:09:48 10/18/2022 15:09:57 Lab Complete 10/18/2022 15:09:48 10/18/2022 15:09:48 10/18/2022 15:09:57 Pending Labs Complete 10/18/2022 15:40:16 10/18/2022 16:21:56 Lab Complete 10/18/2022 15:40:16 10/18/2022 16:21:56 Pending Labs Complete 10/18/2022 15:49:53 10/18/2022 15:49:53 10/18/2022 15:49:53 EKG Complete 10/18/2022 16:22:08 10/18/2022 16:52:20 Echo Request 10/18/2022 17:11:48 Pending Labs Cancel 10/18/2022 17:59:20 10/18/2022 19:30:36 Lab Cancel 10/18/2022 17:59:20 10/18/2022 19:30:36 Pending Labs Cancel 10/18/2022 18:01:53 10/18/2022 18:03:09 Consult Request 10/18/2022 18:03:25 Hospitalist Consult Request 10/18/2022 18:03:25 Meds Admin Request 10/18/2022 18:04:34 Patient Care Request 10/18/2022 18:04:34 Bed Request Request 10/18/2022 18:04:34 Reg Bed Request Request 10/18/2022 18:04:34 Admit Request 10/18/2022 18:04:34 Consult Request 10/18/2022 18:21:48 Pending Labs Request 10/18/2022 18:23:03 Lab Request 10/18/2022 18:23:03 Patient Care Request 10/18/2022 18:23:03 Meds Admin Request 10/18/2022 18:24:20 Meds Admin Cancel 10/18/2022 18:29:11 10/18/2022 18:30:49 Pending Labs Complete 10/18/2022 19:00:37 10/18/2022 19:00:37 10/18/2022 19:13:51 Pending Labs Complete 10/18/2022 19:08:28 10/18/2022 19:08:28 10/18/2022 20:00:54 Lab Complete 10/18/2022 19:08:28 10/18/2022 19:08:28 10/18/2022 19:27:14 Pending Labs Complete 10/18/2022 19:09:53 10/18/2022 19:09:53 10/18/2022 19:22:34 Lab Complete 10/18/2022 19:09:53 10/18/2022 19:09:53 10/18/2022 19:22:34 Urine Collect Complete 10/18/2022 19:09:53 10/18/2022 19:09:53 10/18/2022 19:22:34 Pending Labs Request 10/18/2022 19:30:28 Lab Cancel 10/18/2022 19:30:28 10/18/2022 19:31:27 Pending Labs Complete 10/18/2022 19:31:19 10/18/2022 21:21:21 Lab Complete 10/18/2022 19:31:19 10/18/2022 21:21:21 Discharge Complete 10/18/2022 22:10:25 10/18/2022 22:10:25 10/18/2022 22:10:25 Transfer Complete 10/18/2022 22:10:25 10/18/2022 22:10:25 10/18/2022 22:10:25 ADDRESS: [address] [place] [phone] PHYS DOC NOTES: MEDICAL INFORMATION: Prescriptions Given: Medications to Continue with No Changes Other Medications ibuprofen (ibuprofen 400 mg Tab) 1 Tablets By Mouth every 6 hours as needed for pain. Refills: 0. PATIENT EDUCATION INFORMATION: Instructions: Follow up: DIAGNOSIS: 1:Near syncope; 2:UTI (urinary tract infection); 3:Hypokalemia; Elevated troponin Normal [facility] ED Patient Education Noteon 10-19-2022 ED Patient Education Note Normal [facility] ED Patient Summaryon 023 ED Patient Summary [address] [address] Patient Discharge Instructions Person Information Name: SIDNEY CANDELARIO Age: 22 Years Arrival Date: 10/18/2022 13:27:27 Discharge Diagnosis: 1:Near syncope; 2:UTI (urinary tract infection); 3:Hypokalemia; Elevated troponin Primary Care Physician: Roslyn Valdes MD Provider Information Primary Provider: Favian Ahumada DO Advanced Trust Manager:None The exam and treatment you received in the Emergency Department were for an urgent problem and are not intended as complete care. It is important that you follow up with a doctor, nurse practitioner, or physician?s assistant dean for ongoing care. If your symptoms become worse or you do not improve as expected and you are unable to reach your usual health care provider, you should return to the Emergency Department. We are available 24 hours a day. SIDNEY CANDELARIO has been given the following list of patient education materials, prescriptions and follow-up instructions: Follow-up Instructions: In the event that this physician does not participate in your insurance network, please consult with your insurance company to find a nearby participating provider. Patient Education Materials: A MESSAGE TO ALL PATIENTS REGARDING OPIOIDS PRESCRIPTION OPIOIDS: WHAT YOU NEED TO KNOW Prescription opioids can be used to help relieve xquiepcs-xz-trfxkw pain and are often prescribed following a surgery or injury, or for certain health conditions. These medications can be an important part of the treatment but also come with serious risks. It is important to work with your healthcare provider to make sure you are getting the safest, most effective care. WHAT ARE THE RISKS AND SIDE EFFECTS OF OPIOID USE? Prescription opioids carry serious risks of addiction and overdose, especially with prolonged use. An opioid overdose, often marked by slowed breathing, can cause sudden . The use of prescription opioids can have a number of side effects as well, even when taken as directed: ? Tolerance?meaning you might need to take more of the medication for the same pain relief ? Physical dependence?meaning you have symptoms of withdrawal when a medication is stopped ? Increased sensitivity to pain ? Constipation ? Nausea, vomiting, and dry mouth ? Sleepiness and dizziness ? Confusion ? Depression ? Low levels of testosterone that can result in lower sex drive, energy, and strength ? Itching and sweating RISKS ARE GREATER WITH: ? History of drug misuse, substance use disorder, or overdose ? Mental health conditions (such as depression or anxiety) ? Sleep apnea ? Older age (65 years and older) ? Avoid alcohol while taking prescription opioids. Also, unless specifically advised by your health care provider, medications to avoid include: ? Benzodiazepines (such as Xanax or Valium) ? Muscle relaxants (such as Soma or Flexeril) ? Hypnotics (such as Ambien or Lunesta) ? Other prescription opioids KNOW YOUR OPTIONS Talk to your health care provider about ways to manage your pain that don?t involve prescription opioids. Some of these options may actually work better and have fewer risks and side effects. Options may include: ? Pain relievers such as acetaminophen, ibuprofen, and naproxen ? Some medication that are also used for depression or seizures ? Physical therapy and exercise ? Cognitive behavioral therapy, a psychological, goal-directed approach, in which patients learn how to modify physical, behavioral, and emotional triggers of pain and stress. IF YOU ARE PRESCRIBED OPIOIDS FOR PAIN: ? Never take opioids in greater amounts or more often than prescribed. ? Follow up with your primary health care provider. o Work together to create a plan on how to manage your pain. o Talk about ways to help manage your pain that don?t involve prescription opioids. o Talk about any and all concerns and side effects. ? Help prevent misuse and abuse o Never sell or share prescription opioids. o Never use another person?s prescription opioids. ? Store prescription opioids in a secure place and out of reach of others (this may include visitors, children, friends, and family). ? Safely dispose of unused prescription opioids: Find your community drug take-back program or your pharmacy mail-back program, or flush them down the toilet, following guidance from the Food and Drug Administration (www.fda.gov/Drugs/R esourcesForYou). ? Visit www.cdc.gov/drugover dose to learn about the risks of opioids abuse and overdose. ? If you believe you may be struggling with addiction, tell your health home care and home health aides teacher and ask for guidance or call [facility]?S National Helpline at 9-310-574-PWFW. r Source: [place] Department of Health and Human Services/Center for Disease Control & Prevention [facility] (more content not included)... Normal [facility] HEMATOLOGYOrdered By: SYSTEM SYSTEM on 10-19-2022 Basophils/100 WBC (Bld) 0.4 % Normal 0.0 - 2.0 % [facility]Auto[facility] Basophils/Leukocytes Auto (Bld) [Pure # fraction] 0.1 E9/L Normal 0.0 - 0.2 E9/L [facility] Eosinophils/100 WBC (Bld) 0.6 % Normal 0.0 - 8.0 % [facility] Eosinophils/Leukocytes Auto (Bld) [Pure # fraction] 0.1 E9/L Normal 0.0 - 0.5 E9/L [facility] Lymphocytes/100 WBC (Bld) 12.3 % Low 14.0 - 50.0 % [facility] Lymphocytes/Leukocytes Auto (Bld) [Pure # fraction] 2.0 E9/L Normal 1.0 - 4.0 E9/L [facility] Monocytes/100 WBC (Bld) 8.5 % Normal 4.0 - 14.0 % [facility] Monocytes/Leukocytes Auto (Bld) [Pure # fraction] 1.4 E9/L High 0.2 - 1.0 E9/L [facility] Neutrophils/100 WBC (Bld) 78.2 % High 36.0 - 75.0 % [facility] Neutrophils/Leukocytes Auto (Bld) [Pure # fraction] 12.7 E9/L High 2.0 - 7.5 E9/L [facility] HEMATOLOGYOrdered By: Elaine Cruz on 10-19-2022 Erythrocyte distribution width (RBC) [Ratio] 13.6 % Normal 10.9 - 14.2 % [facility] Hematocrit (Bld) [Volume fraction] 34.1 % Normal 34.0 - 46.0 % [facility] Hemoglobin (Bld) [Mass/Vol] 11.3 g/dL Low 12.0 - 16.0 gm/dL [facility] MCH (RBC) [Entitic mass] 30.3 pg Normal 27. 0 - 34.0 pg [facility] MCHC (RBC) [Mass/Vol] 33.2 g/dL Normal 31.4 - 36.0 gm/dL [facility] MCV (RBC) [Entitic vol] 91.3 fL Normal 80.0 - 100.0 fL [facility] Platelet mean volume (Bld) [Entitic vol] 8.9 fL Normal 6.4 - 10.8 fL [facility] Platelets (Bld) [#/Vol] 146.0 E9/L Low 150. 0 - 500.0 E9/L [facility] RBC (Bld) [#/Vol] 3.7 E12/L Low 4.3 - 5.9 E12/L [facility] WBC corrected for nucl RBC Auto (Bld) [#/Vol] 16.3 E9/L High 4.0 - 11.0 E9/L [facility] Inpatient Clinical Summaryon 10-19-2022 Inpatient Clinical Summary [place] [address] Clinical Summary Person Information: Name: SIDNEY CANDELARIO Age: 22 Years : 2000 Sex: Female PCP: Roslyn Valdes MD Marital Status: Race: White Ethnicity: Non- or Language: Irish Visit Id: Visit Reason: Dizziness; UTI, NEAR SYNCOPE, HYPOKALEMIA Speciality: Acuity: Enc Type: Observation Med Service: Medical Arrival: 10/18/2022 13:27:27 Discharge: Dispo Type: Address: [address] [place] [address] [id number] Provider Notes: Diagnosis: 1:Near syncope; 2:UTI (urinary tract infection); 3:Hypokalemia; Elevated troponin Problems Active BMI (body mass index), pediatric, less than 5th percentile for age Well child check Smoking Status: Never Smoker Functional Status: Sensory Deficits: History of Falls: Mobility Assistance Prior to Admission: Independent ADLs: Independent Current Level of Assistance for Self-Care/Mobility: Cognitive Status: Oriented x 3 Allergies No Known Allergies Measurements: Height: 152.4 cm Weight: 49.5 kg Blood Pressure: 93 mmHg / 61 mmHg BMI: 21.23 kg/m2 Procedures No Procedures Documented Immunizations No Immunizations Documented This Visit Final Med List: ibuprofen (ibuprofen 400 mg Tab) 1 Tablets By Mouth every 6 hours as needed for pain. Refills: 0. Care Team Members: Attending Physician: Jona Amaral MD Consulting Physician: Sahil Butler MD Referring Physician: Follow up: With: Address: When: Roslyn Valdes MD, [facility] [phone] Within 2 to 4 days Patient Education Information: Normal [facility] Inpatient Patient Summaryon 10-19-2022 Inpatient Patient Summary [address] [address] Patient Discharge Instructions PERSON INFORMATION Name: SIDNEY CANDELARIO Date of : 2000 Current Date: 10/19/2022 09:40:25 PHYSICIANS Admitting Physician: Jona Amaral MD Primary Care Physician: Roslyn Valdes MD PCP Phone Number: [phone] Comment: Discharge Diagnosis: 1:Near syncope; 2:UTI (urinary tract infection); 3:Hypokalemia; Elevated troponin Condition at Discharge: Improved SIDNEY CANDELARIO has been given the following list of follow-up instructions, prescriptions, and patient education materials: PATIENT FOLLOW-UP INFORMATION Diet: Regular Discharge Activity: Resume normal activities in 24 hours Discharge Restrictions: Wound Care Instructions: Remove Your Dressing In Days Call Your Doctor For: IF UNABLE TO CONTACT YOUR PHYSICIAN AND YOU FEEL IT IS AN EMERGENCY, GO TO THE NEAREST EMERGENCY ROOM OR CALL 911 Home Treatment: Devices/Equipment: None Special Services: Additional Instructions: Primary Care Physician to provide the following pending test results: None Follow up: With: Address: When: Roslyn Valdes MD, [facility], MED [phone] Within 2 to 4 days In the event that this physician does not participate in your insurance network, please consult with your insurance company to find a nearby participating provider. Comment: KODAK Spencer, SIDNEY AGUILAR, have received the attached patient education materials/instructio ns and have verbalized understanding: Patient Signature Date Clinican/Nurse Signature Date HERE ARE THE MEDICATION CHANGES THAT OCCURRED DURING YOUR HOSPITAL STAY Medications to Continue with No Changes Other Medications ibuprofen (ibuprofen 400 mg Tab) 1 Tablets By Mouth every 6 hours as needed for pain. Refills: 0. Last Dose: Next Dose: Comment: MEDICATION LIST PROVIDED FOR YOU IS A LIST OF YOUR CURRENT MEDICATIONS. PLEASE CARRY THIS WITH YOU AT ALL TIMES. ibuprofen (ibuprofen 400 mg Tab) 1 Tablets By Mouth every 6 hours as needed for pain. Refills: 0. Pharmacy Information: [facility] Comment: PATIENT EDUCATION INFORMATION Instructions: Medication Leaflets: You may receive a survey from [employer] asking you to rate your care experience. Your feedback is important and will help us understand what we do well and how we can improve the quality of care we provide to you, your loved ones and our community. It?s an honor to serve you. Thank you for choosing [facility] Normal [facility] Interdisciplinary Note - Christ e Manageron 10-19-2022 Interdisciplinary Note - Director Physical Therapy Pt is awake and alert in bed, previously rounded with Dr. Amaral. Spouse at bedside, Pt is aware of plan for scan today and plan to DC home later today. Declines any concerns or DC needs. Observation status reviewed. PCP verified and insurance information reviewed and DME discussed. Contact information provided and white board updated. Normal [facility] Comment on above: Result Comment: Elec tronically Signed By: Heraclio GRAFF, Sayda\.br\Date and Time Signed: 10/19/22 11:06 EDT Magnesiumon 10-19-2022 Magnesium [Mass/Vol] 1.7 mg/dL Normal 1.3-2.4 [facility] Comment on above: Performed By: #### 2 [id number] #### [facility] [address] [place] [address] Monitor Recordon 10-19-2022 Monitor Record [id number] 4#1.00CD:127 Normal [facility] Monitor Record [id number] 1#1.00CD:127 Normal [facility] Monitor Record [id number] 0#1.00CD:127 [facility] Monitor Record [id number] 8#1.00CD:127 Normal [facility] Patient Education - Texton 0 10-19-2022 Patient Education - Text Neurology Near-Syncope Near-syncope is when you suddenly feel like you might pass out or faint. This may also be called presyncope. During an episode of near-syncope, you may: ? Feel dizzy, weak, or light-headed. It may feel like the room is spinning. ? Feel like you may vomit (nauseous). ? See spots or see all white or all black. ? Have cold, clammy skin. ? Feel warm and sweaty. ? Hear ringing in your ears. This condition is caused by a sudden decrease in blood flow to the brain. This can result from many causes, but most of those causes are not dangerous. However, near-syncope may be a sign of a serious medical problem, so it is important to seek medical care. Follow these instructions at home: Medicines ? Take jsng-ifp-uhxwlnv and prescription medicines only as told by your doctor. ? If you are taking blood pressure or heart medicine, get up slowly and spend many minutes getting ready to sit and then stand. This can help with dizziness. Lifestyle ? Do not drive, use machinery, or play sports until your doctor says it is okay. ? Do not drink alcohol. ? Do not smoke or use any products that contain nicotine or tobacco. If you need help quitting, ask your doctor. ? Avoid hot tubs and saunas. General instructions ? Be aware of any changes in your symptoms. ? Talk with your doctor about your symptoms. You may need to have testing to help find the cause. ? If you start to feel like you might pass out, sit or lie down right away. If sitting, lower your head down between your legs. If lying down, raise (elevate) your feet above the level of your heart. ? Breathe deeply and steadily. Wait until all of the symptoms are gone. ? Have someone stay with you until you feel better. ? Drink enough fluid to keep your pee (urine) pale yellow. ? Avoid standing for a long time. If you must stand for a long time, do movements such as: ? Moving your legs. ? Crossing your legs. ? Flexing and stretching your leg muscles. ? Squatting. ? Keep all follow-up visits. Contact a doctor if: ? You continue to have episodes of near fainting. Get help right away if: ? You pass out or faint. ? You have any of these symptoms: ? Fast or uneven heartbeats (palpitations). ? Pain in your chest, belly, or back. ? Shortness of breath. ? You have a seizure. ? You have a very bad headache. ? You are confused. ? You have trouble seeing. ? You are very weak. ? You have trouble walking. ? You are bleeding from your mouth or butt. ? You have black or tarry poop (stool). These symptoms may be an emergency. Get help right away. Call your local emergency services (911 in the [place] ? Do not wait to see if the symptoms will go away. ? Do not drive yourself to the hospital. Summary ? Near-syncope is when you suddenly feel like you might pass out or faint. ? This condition is caused by a sudden decrease in blood flow to the brain. ? Near-syncope may be a sign of a serious medical problem, so it is important to seek medical care. ? If you start to feel like you might pass out, sit or lie down right away. If sitting, lower your head down between your legs. If lying down, raise (elevate) your feet above the level of your heart. ? Talk with your doctor about your symptoms. You may need to have testing to help find the cause. This information is not intended to replace advice given to you by your health care provider. Make sure you discuss any questions you have with your health care provider. Document Revised: 10/05/2021 Document Reviewed: 10/05/2021 [employer] Patient Education ? 2022 [employer]. Obstetrics and Gynecology Urinary Tract Infection, Adult A urinary tract infection (UTI) is an infection of any part of the urinary tract. The urinary tract includes the kidneys, ureters, bladder, and urethra. These organs make, store, and get rid of urine in the body. An upper UTI affects the ureters and kidneys. A lower UTI affects the bladder and urethra. What are the causes? Most urinary tract infections are caused by bacteria in your genital area around your urethra, where urine leaves your body. These bacteria grow and cause inflammation of your urinary tract. What increases the risk? You are more likely to develop this condition if: ? You have a urinary catheter that stays in place. ? You are not able to control when you urinate or have a bowel movement (incontinence). ? You are female and you: ? Use a spermicide or diaphragm for control. ? Have low estrogen levels. ? Are . ? You have certain genes that increase your risk. ? You are sexually active. ? You take antibiotic medicines. ? You have a condition that causes your flow of urine to slow down, such as: ? An enlarged prostate, if you are male. ? Blockage in your urethra. ? A kidney stone. ? A nerve condition that affects your bladder control (neurogenic bladder). (more content not included)... Normal [facility] Phosphoruson 10-19-2022 Phosphate [Mass/Vol] 3.8 mg/dL Normal 1.9-4.6 [facility] Comment on above: Performed By: #### 2 [id number] #### [facility] [address] [place] [address] Progress Note-Physicianon Progress Note-Physician Basic Informatio n Assessment and Plan 22-year-old female who is 25-week presented with dizziness. Last Saturday patient had an episode of dizziness. Since Saturday patient has been experiencing frequent episodes of dizziness. Patient does not have room spinning sensation. Patient mentioned she feels drunk and has lightheadedness at times. Patient mentioned to time she felt like she was going to pass out but episodes of syncope. No chest pain, palpitations, shortness of breath, numbness/tingling, focal motor weakness, aphasia, dysphagia, tinnitus, PND, orthopnea, peripheral edema, fever, chills, nausea, vomiting, diarrhea, melena, hematochezia, abdominal pain, sore throat, runny nose, sneezing, coughing, dysuria, increased/decreased urinary frequency, urinary urgency, vaginal discharge. No alcohol use, drug abuse. ED physician discussed case with station installer and repairer Dr. Butler and WET SANDER Dr. Mortensen. Telemetry monitoring and echocardiogram was recommended. Borderline elevation of troponin in ED with troponin in 40s. Heart rate 100s on admission which came down to 90s after 1 L normal saline bolus. Near syncope Chest x-ray, ECG unremarkable Mild tachycardia on admission with heart rate 100s. Troponin max around 53 TSH, ethanol, salicylate, acetaminophen, Urine toxicology, troponin trend, orthostatics unremarkable Overnight telemetry unremarkable Echocardiogram pending Follow cardiology recommendations Will have physical therapy walk around the patient Patient wants to leave by 3 PM. If unable to get echocardiogram today in the hospital then will order outpatient echocardiogram Dizziness probably multifactorial: Dehydration, UTI Abnormal UA and asymptomatic woman UA with 3+ bacteria, 16?25 WBCs, 1+ LE. Leukocytosis with WBCs 15.8 Ceftriaxone day [address] Mortensen performed US in ED Hypokalemia Potassium 3.3. Will replete potassium. Check magnesium Diet: Regular Code: Full code DVT prophylaxis: heparin This report was transcribed using voice recognition software. Every effort was made to ensure accuracy, however, inadvertently computerized rn radiology mistakes may be present. Dr. Jona Bowser [facility] Subjective No major overnight events. No more dizziness and the hospital. No shortness of breath, chest pain, palpitations, fever, chills, nausea, vomiting, diarrhea, abdominal pain. Patient is hemodynamically stable Objective Vitals & Measurements T: 36.8 ?C(Oral) TMIN: 36.8 ?C(Oral) TMAX: 37 ?C(Oral) HR: 103(Monitored) RR: 20 BP: 93/61 BP: 96/60(Standing) BP: 96/59(Supine) SpO2: 98% HT: 152.4 cm WT: 49.5 kg Intake & Output This visit (24 hour periods starting at 07:00 EDT) 10/19/22 * 10/18/22 10/17/22 Total Summary Intake mL -- 1,050 -- Output mL -- -- -- Fluid Balance -- 1,050 -- Intake (2) Sodium Chloride 0.9% mL -- 1,000 -- Sodium Chloride 0.9%, ceftriaxone mL -- 50 -- Total -- 1,050 -- Output (0) Counts (0) * This column has not completed the indicated time period. Physical Exam General: alert, NAD HEENT: eyes show no evidence of icterus Cardiovascular: regular rate and rhythm, no S3/S4 Respiratory: Lungs CTABL, respirations non labored Abdomen: soft, non-tender, positive bowel sounds, no organomegaly, no guarding, no rigidity Psych: cooperative Extremities: no peripheral edema Neurological: speech normal Lab Results WBC: 16.3 E9/L High (10/19/22 05:47:00) RBC: 3.7 E12/L Low (10/19/22 05:47:00) HGB: 11.3 gm/dL Low (10/19/22 05:47:00) Hct: 34.1 % (10/19/22 05:47:00) MCV: 91.3 fL (10/19/22 05:47:00) MCH: 30.3 pg (10/19/22 05:47:00) MCHC: 33.2 gm/dL (10/19/22 05:47:00) RDW: 13.6 % (10/19/22 05:47:00) Platelet: 146 E9/L Low (10/19/22 05:47:00) MPV: 8.9 fL (10/19/22 05:47:00) Neutro Auto: 78.2 % High (10/19/22 05:47:00) Lymph Auto: 12.3 % Low (10/19/22 05:47:00) Garza Auto: 8.5 % (10/19/22 05:47:00) Eos Auto: 0.6 % (10/19/22 05:47:00) Basophil Auto: 0.4 % (10/19/22 05:47:00) Neutro Absolute: 12.7 E9/L High (10/19/22 05:47:00) Lymph Absolute: 2 E9/L (10/19/22 05:47:00) Garza Absolute: 1.4 E9/L High (10/19/22 05:47:00) Eos Absolute: 0.1 E9/L (10/19/22 05:47:00) Basophil Absolute: 0.1 E9/L (10/19/22 05:47:00) PT: 10.8 second(s) (10/18/22 14:39:00) INR: 1 (10/18/22 14:39:00) PTT: 25.8 second(s) (10/18/22 14:39:00) Glucose Lvl: 97 mg/dL (10/18/22 14:39:00) BUN: 7 mg/dL (10/18/22 14:39:00) Creatinine: 0.5 mg/dL (10/18/22 14:39:00) eGFR: 138 mL/min/1.73 m2 (10/18/22 14:39:00) BUN/Creat Ratio: 14 (10/18/22 14:39:00) Sodium Lvl: 136 mmol/L (10/18/22 14:39:00) Potassium Lvl: 3.3 mmol/L Low (10/18/22 14:39:00) Chloride: 102 mmol/L (10/18/22 14:39:00) CO2: 26 mmol/L (10/18/22 14:39:00) AGAP: 11 mEq/L (10/18/22 14:39:00) Calcium Lvl: 8.7 mg/dL Low (10/18/22 14:39:00) Phosphorus: 3.8 mg/dL (10/19/22 05:47:00) Magnesium (more content not included)... Normal [facility] Comment on above: Result Comment: Elec tronically Signed By: Cristin MOSS, Jona Rivera\.br\Date and Time Signed: 10/19/22 12:08 EDT Troponin 9 Hr.on 10-19-2022 Troponin I.cardiac [Mass/Vol] 48.10 pg/mL Abnormal 10.10-27.10 [facility] Comment on above: Order Comment: pt is not discharged despite the discharge status. pt is in room 302; third shift phleb was notified not to cancel pending orders. [id number] 10/18/2022 22:15:32 EDT Result Comment: Crit ical Result verified by previous result\ Critical Result I_hsTnI:48.1 Called to ROBERTA CAMPOS at 3N by NICK MCCLURE and read back for confirmation at 10/19/2022 01:32:38 The 95% CI (Confidence Interval) PPV (Positive Predictive Value) for myocardial infarction in females is 38 pg/mL, in males 51 pg/mL. The results should be used in conjunction with clinical conditions of myocardial infarction. (Access High Sensitivity Troponin I Instructions For Use, Carina Genecure, January 2018) Performed By: #### 1 [id number] #### [facility] [address] [place] [address] eGFRon 10-19-2022 GFR/1.73 sq M.predicted among non-blacks MDRD (S/P/Bld) [Vol rate/Area] 138 mL/min/1.73 m2 Normal >=59 [facility] Comment on above: Order Comment: Order added by Discern Expert. Result Comment: Integrated Program Teacher sydnie kidney disease could be indicated at eGFR's of less than 60 mL/min/1.73m2. Kidney failure is indicated at less than 15 mL/min/1.73m2. Performed By: #### 2 [id number] #### [facility] [address] [place] [address] Acetamnphn Lvlon 10-18-2022 Acetaminophen [Mass/Vol] ug/mL Low 15-30 [facility] Comment on above: Performed By: #### 1 [id number], [id number], [id number], [id number], [id number] ####[facility] [address] [place] [address] Auto Diffon 10-18-2022 Basophils/100 WBC (Bld) 0.6 % Normal 0.0-2.0 [facility] Comment on above: Order Comment: Order Added by Discern Expert. Performed By: #### 1 [id number], [id number], [id number], [id number], [id number] ####[facility] [address] [place] [address] Basophils/Leukocytes Auto (Bld) [Pure # fraction] 0.1 E9/L Normal 0.0-0.2 [facility] Comment on above: Order Comment: Order Added by Discern Expert. Performed By: #### 1 [id number], [id number], [id number], [id number], [id number], [id number], [id number] ####[facility] [address] [place] [address] Eosinophils/100 WBC (Bld) 0.5 % Normal 0.0-8.0 [facility] Comment on above: Order Comment: Order Added by Discern Expert. Performed By: #### 1 [id number], [id number], [id number], [id number], [id number], [id number], [id number], [id number] ####[facility] [address] [place] [address] Eosinophils/Leukocytes Auto (Bld) [Pure # fraction] 0.1 E9/L Normal 0.0-0.5 [facility] Comment on above: Order Comment: Order Added by Discern Expert. Performed By: #### 1 4862740, 1422018, 5123445, 65236406, 4110266, 85173408, 59898963, 5162108, 7353333 ####[address] [place] [address] Lymphocytes/100 WBC (Bld) 11.2 % Low 14.0-50.0 [facility] Comment on above: Order Comment: Order Added by Discern Expert. Performed By: #### 1 4979919, 2739370, 6325569, 85679768, 7838287, 17396898, 68250905, 9800624, 3705128 ####[address] [address] Lymphocytes/Leukocytes Auto (Bld) [Pure # fraction] 1.8 E9/L Normal 1.0-4.0 [facility] Comment on above: Order Comment: Order Added by Discern Expert. Performed By: #### 1 2341772, 5679148, 8922898, 85701794, 5392788, 30308383, 68621006, 8884020, 5164663 ####[address] [place] [address] Monocytes/100 WBC (Bld) 8.3 % Normal 4.0-14.0 [facility] Comment on above: Order Comment: Order Added by Discern Expert. Performed By: #### 1 7075063, 3906265, 9899706, 04935549, 4090864, 25202301, 30772738, 2941973, 5016978 ####[address] [place] [address] Monocytes/Leukocytes Auto (Bld) [Pure # fraction] 1.3 E9/L High 0.2-1.0 [facility] Comment on above: Order Comment: Order Added by Discern Expert. Performed By: #### 1 3143919, 6858177, 2245188, 36910865, 4574429, 97036107, 32023531, 7395087, 8646641 ####[facility] [address] [place] [address] Neutrophils/100 WBC (Bld) 79.4 % High 36.0-75.0 [facility] Comment on above: Order Comment: Order Added by Discern Expert. Performed By: #### 1 3503609, 7825538, 5815553, 38501295, 5504536, 18516192, 15051872, 0296580, 4154061 ####[facility] [address] [place] [address] Neutrophils/Leukocytes Auto (Bld) [Pure # fraction] 12.5 E9/L High 2.0-7.5 [facility] Comment on above: Order Comment: Order Added by Discern Expert. Performed By: #### 1 5110137, 7817067, 4382338, 42905975, 3518164, 57019292, 00681179, 8737575, 4660637 ####[facility] [address] [place] [address] BMPon 10-18-2022 Creatinine [Mass/Vol] 0.5 mg/dL Normal 0.5-1.3 [facility] Comment on above: Performed By: #### 1 5947211, 4945765, 2647512, 10847993, 8868399, 23959304, 40272726, 4301291, 6216394 #### [facility] [address] [place] [address] Urea nitrogen [Mass/Vol] 7 mg/dL Normal 5-21 [facility] Comment on above: Performed By: #### 1 2604124, 0743141, 2437596, 18649458, 5578622, 29835921, 54081152, 0506004, 5024951 #### [facility] [address] [place] [address] Urea nitrogen/Creatinine [Mass ratio] 14 No Units Normal 10-20 [facility] Comment on above: Performed By: #### 1 8347800, 3959852, 9538645, 16945289, 1490073, 12246290, 47498442, 9347851, 3639852 #### [facility] [address] [place] [address] Anion gap [Moles/Vol] 11 mmol/L Normal 6-16 [facility] Comment on above: Performed By: #### 1 4060588, 7188634, 7004962, 47628696, 6565097, 99233888, 94352962, 5435101, 1411299 #### [facility] [address] [place] [address] Calcium [Mass/Vol] 8.7 mg/dL Low 8.9-11.1 [facility] Comment on above: Performed By: #### 1 7671923, 2838480, 4282952, 09969361, 9552994, 52920294, 54042065, 9727633, 4735393 #### [facility] [address] [place] [address] Chloride [Moles/Vol] 102 mmol/L Normal 101-111 [facility] Comment on above: Performed By: #### 1 5543349, 1866826, 5840475, 27856315, 1715659, 77348405, 50818719, 3926925, 8805684 #### [facility] [address] [place] [address] CO2 [Moles/Vol] 26 mmol/L Normal 21-31 [facility] Comment on above: Performed By: #### 1 2014574, 7322255, 3159372, 05105246, 2004395, 86329191, 87291840, 2186127, 8322196 #### [facility] [address] [place] [address] Glucose [Mass/Vol] 97 mg/dL Normal 55-199 [facility] Comment on above: Result Comment: If t his glucose result represents a fasting glucose, interpretation should refer to the following reference range: 55-99 mg/dL Performed By: #### 1 7271456, 9154110, 5560588, 49317713, 9246147, 16637678, 11221686, 4483408, 0419394 #### [facility] [address] [place] [address] Potassium [Moles/Vol] 3.3 mmol/L Low 3.5-5.3 [facility] Comment on above: Performed By: #### 1 4076748, 7415519, 5832319, 75513173, 7547004, 49185553, 54310821, 7205087, 6352713 #### [facility] [address] [place] [address] Sodium [Moles/Vol] 136 mmol/L Normal 135-145 [facility] Comment on above: Performed By: #### 1 3860308, 9198822, 4287179, 61108547, 0294738, 28100392, 83965113, 9411668, 6978832 #### [facility] [address] [place] [address] CBC w/ Auto Diffon 3 Erythrocyte distribution width (RBC) [Ratio] 13.8 % Normal 10.9-14.2 [facility] Comment on above: Performed By: #### 1 4648089, 3058425, 4628062, 38216242, 5273459, 50037804, 15757802, 5700189, 7774474 #### [facility] [address] [place] [address] Hematocrit (Bld) [Volume fraction] 37.4 % Normal 34.0-46.0 [facility] Comment on above: Performed By: #### 1 7187693, 2395703, 5221646, 32412087, 3285669, 50751532, 27640659, 7989873, 0846136 #### [facility] [address] [place] [address] Hemoglobin (Bld) [Mass/Vol] 12.5 g/dL Normal 12.0-16.0 [facility] Comment on above: Performed By: #### 1 6369046, 8336657, 5447435, 19478744, 8198259, 93268718, 30695764, 2208021, 1749687 #### [facility] [address] [place] [address] MCH (RBC) [Entitic mass] 30.1 pg Normal 27.0-34.0 [facility] Comment on above: Performed By: #### 1 7072994, 8261897, 9322297, 62118001, 8724135, 14137608, 19826095, 9603986, 2892864 #### [facility] [address] [place] [address] MCHC (RBC) [Mass/Vol] 33.6 g/dL Normal 31.4-36.0 [facility] Comment on above: Performed By: #### 1 1978147, 8569715, 0975884, 10951930, 1445922, 29150973, 58174497, 7312546, 2924518 #### [facility] [address] [place] [address] MCV (RBC) [Entitic vol] 89.7 fL Normal 80.0-100.0 [facility] Comment on above: Performed By: #### 1 6787787, 9950650, 7636196, 49853487, 7984549, 65510486, 00640368, 1639669, 2402112 #### [facility] [address] [place] [address] Platelet mean volume (Bld) [Entitic vol] 9.2 fL Normal 6.4-10.8 [facility] Comment on above: Performed By: #### 1 6981875, 8958424, 5086579, 33861667, 6708808, 15972041, 12603262, 7332251, 6643673 #### [facility] [address] [place] [address] Platelets (Bld) [#/Vol] 146.0 E9/L Low 150.0-500.0 [facility] Comment on above: Performed By: #### 1 7879975, 1816779, 7594483, 44382855, 9850992, 48814172, 78855542, 9263937, 3606073 #### [facility] [address] [place] [address] RBC (Bld) [#/Vol] 4.2 E12/L Low 4.3-5.9 [facility] Comment on above: Performed By: #### 1 1333750, 7007182, 5839163, 90308005, 4082340, 26327375, 46413889, 4940599, 0762672 #### [facility] [address] [place] [address] WBC corrected for nucl RBC Auto (Bld) [#/Vol] 15.8 E9/L High 4.0-11.0 [facility] Comment on above: Result Comment: Slid e reviewed by 10/18/2022 15:09:43 EDT. Performed By: #### 1 3112191, 8960707, 2351826, 94992993, 3663411, 73785316, 55508795, 4353056, 3433044 #### [facility] [address] [place] [address] CHEMISTRYOrdered By: SYSTEM SYSTEM on 10-18-2022 Ethanol [Mass/Vol] mg/dL Normal <=7mg/dL [facility] R emisol Troponin I.cardiac [Mass/Vol] 53.00 pg/mL Invalid Interpretation Code 10.10 - 27.10 pg/mL [facility] Comment on above: Result Comment: Crit ical Result verified by previous result\ Critical Result I_hsTnI:53.0 Called to DAVIDA TAYLOR at ER by VALERIA ROGERS and read back for confirmation at 10/18/2022 21:36:32 Troponin I.cardiac [Mass/Vol] 49.60 pg/mL Invalid Interpretation Code 10.10 - 27.10 pg/mL [facility] Comment on above: Result Comment: Crit ical Result verified by previous result\ Critical Result I_hsTnI:49.6 Called to DAVIDA TAYLOR at ER by VALERIA ROGERS and read back for confirmation at 10/18/2022 18:15:45 Acetaminophen [Mass/Vol] microgram/mL Low 15 - 30 mcg/mL [facility] Anion gap [Moles/Vol] 11 mmol/L Normal 6 - 16 mEq/L [facility] Calcium [Mass/Vol] 8.7 mg/dL Low 8.9 - 11. 1 mg/dL [facility] Chloride [Moles/Vol] 102 mmol/L Normal 101 - 1 11 mmol/L [facility] CO2 [Moles/Vol] 26 mmol/L Normal 21 - 31 mmol/L [facility] Creatinine [Mass/Vol] 0.5 mg/dL Normal 0.5 - 1.3 mg/dL [facility] GFR/1.73 sq M.predicted among non-blacks MDRD (S/P/Bld) [Vol rate/Area] 138 mL/min/1.73 m2 Normal >=59mL/min/1 .73 m2 [facility] Chem S Glucose [Mass/Vol] 97 mg/dL Normal 55 - 199 mg/dL [facility] Potassium [Moles/Vol] 3.3 mmol/L Low 3.5 - 5.3 mmol/L [facility] Salicylates [Mass/Vol] mg/dL Low 6 - 29 mg/dL [facility] Sodium [Moles/Vol] 136 mmol/L Normal 135 - 145 mmol/L [facility] TSH Qn 1.50 m[IU]/L Normal 0.34 - 5.60 mcIU/mL [facility] Urea nitrogen [Mass/Vol] 7 mg/dL Normal 5 - 21 mg/d L [facility] Urea nitrogen/Creatinine [Mass ratio] 14 mg/mg Normal 10 - 20 [facility] Amphetamines Screen method >1000 ng/mL Ql (U) Negative (10/18/22 1:37 PM) Normal Negative [facility] Barbiturates Screen Ql (U) Negative (10/18/22 1:37 PM) Normal Negative [facility] Benzodiazepines Ql (U) Negative (10/18/22 1:37 PM) Normal Negative [facility] Cocaine Ql (U) Negative (10/18/22 1:37 PM) Normal Negative [facility] Opiates Screen Ql (U) Negative (10/18/22 1:37 PM) Normal Negative [facility] Phencyclidine Screen method >25 ng/mL Ql (U) Negative (10/18/22 1:37 PM) Normal Negative [facility] Tetrahydrocannabinol Screen method >50 ng/mL Ql (U) Negative (10/18/22 1:37 PM) Normal Negative [facility] COAGULATIONOrdered By: Dorita Chaney on 10-18-2022 aPTT Coag (PPP) [Time] 25.8 s Normal 25.1 - 36.5 second(s) [facility] Auto Coag INR Coag (PPP) [Relative time] 1.0 {INR} Invalid Interpretation Code [facility] Auto Coag PT Coag (PPP) [Time] 10.8 s Normal 9.4 - 1 2.5 second(s) [facility] Auto Coag Consent for Treatmenton 10-08 Consent for Treatment [id number] #1.00CD:127 Normal [facility] ED Note-Physicianon 10-19-19 ED Note-Physician Basic Information Time Seen: Favian Ahumada DO 10/18/2022 14:07 Chief Complaint pt reports being [address] limon. reports three days of dizziness. pt denies abd pain, vag discharge, n/v. History of Present Illness 42-year-old female to the emergency department chief complaint of near syncopal episodes. She reports that for the last 3 days she has had several discrete episodes of nearly passing out. She has not actually passed out. There is no vertigo. She denies any vision changes, difficulty speaking, numbness, weakness, tingling. There is no chest pain or shortness of breath. She denies any palpitations. She is currently [address] Limon. She reports that ultrasounds have been normal. She denies any vaginal bleeding or discharge. She has not had any abdominal pain, nausea, vomiting, diarrhea. She has never had syncopal or near syncopal episodes previously. She is otherwise at her baseline health. No recent illness. She denies any fever, sweats, chills. She denies any dysuria, urgency, hematuria. Review of Systems A 10 point review of systems is negative except as noted above. Medical and Surgical History: Reviewed and noted Social history: Lives at home Tobacco: Denies Physical Exam Vitals & Measurements T: 36.8 ?C(Oral) HR: 98(Monitored) RR: 16 BP: 107/74 SpO2: 99% HT: 152 cm WT: 48 kg BMI: 20.78 VITALS: I have reviewed the triage vital signs. GENERAL: Well developed, well appearing adult in no acute distress. NEURO: Alert and oriented. Moves all extremities. Face is symmetric and expressive. EYES: PERRL. No scleral icterus or conjunctival injection. No discharge. HENT: Normocephalic, atraumatic. Hearing is grossly intact. Nares grossly patent and without discharge. Mucous membranes moist. NECK: No JVD. Patient moves neck without restriction. CARDIO: Rhythm regular. Normal rate. No murmur, rub, or gallop. Pulses equal bilaterally in the upper and lower extremity. No lower extremity edema. PULM: Lungs clear to auscultation in all lechuga. No wheezes, rales, or rhonchi. No conversational dyspnea. No splinting, stridor, or accessory muscle use. GI/: Abdomen is soft and non-tender. Gravid uterus. Normoactive bowel sounds. EXTREMITIES: Symmetric muscle bulk. No joint swelling. No clubbing, cyanosis, or deformity. SKIN: Warm and dry. Normal turgor. No rash or lesions appreciated. PSYCH: Mood, affect, and interaction is appropriate to the setting. Procedure Critical Care Procedure Note Authorized and Performed by: Favian Ahumada DO Total critical care time: 32 min Due to a high probability of clinically significant, life threatening deterioration, the patient required my highest level of preparedness to intervene emergently and I personally spent this critical care time directly and personally managing the patient. This critical care time included obtaining a history; examining the patient; pulse oximetry; ordering and review of studies; arranging urgent treatment with development of a management plan; evaluation of patient's response to treatment; frequent reassessment; and, discussions with other providers. This critical care time was performed to assess and manage the high probability of imminent, life-threatening deterioration that could result in multi-organ failure. It was exclusive of separately billable procedures and treating other patients and teaching time. Please see MDM section and the rest of the note for further information on patient assessment and treatment. Medical Decision Making MDM Data External documents reviewed: Not applicable My EKG interpretation: As below My CT interpretation: Not applicable My X-ray interpretation: As below My Ultrasound interpretation: Not applicable Decision rules/scores evaluated: Not applicable Discussed with: Dr. Mortensen, WET SANDER. Dr. Butler, cardiology. Dr. Calhoun, Hospitalist. Treatment and Disposition ED Course: 22-year-old female to the emergency department chief complaint of recurrent near syncope over the last 3 days. Mild tachycardia, otherwise stable vitals. The patient is afebrile. Cardiac work-up is initiated. We will give a liter of fluids. CBC with mild leukocytosis. Normal hemoglobin level. She is mildly thrombocytopenic. Coags are unremarkable. Chemistry with very mild hypokalemia, no other acute abnormalities. Her troponin is elevated above our critical threshold. It is however not significantly elevated. We will repeat a troponin EKG without evidence of ischemia or other acute process. Patient has been observed on the emergency department telemetry monitoring. There is no evidence of arrhythmia. Repeat troponin increased slightly. I discussed with patient the finding. We discussed possible causes. Low suspicion for PE in this patient as she does not have any chest pain or shortness of breath. She is hemodynamically stable. She does have very mild tachycardia. I will call and discuss with WET SANDER and cardiology. (more content not included)... Normal [facility] Comment on above: Result Comment: Elec tronically Signed By: Favian Ahumada DO\.br\Date and Time Signed: 10/18/22 19:58 EDT Ethanolon 10-18-2022 Ethanol [Mass/Vol] mg/dL Normal <=7 [facility] Comment on above: Performed By: #### 2 [id number] ####[facility] [address] [place] [address] HEMATOLOGYOrdered By: SYSTEM SYSTEM on 10-18-2022 Basophils/100 WBC (Bld) 0.6 % Normal 0.0 - 2.0 % [facility] Basophils/Leukocytes Auto (Bld) [Pure # fraction] 0.1 E9/L Normal 0.0 - 0.2 E9/L [facility] Eosinophils/100 WBC (Bld) 0.5 % Normal 0.0 - 8.0 % [facility] Eosinophils/Leukocytes Auto (Bld) [Pure # fraction] 0.1 E9/L Normal 0.0 - 0.5 E9/L [facility] Lymphocytes/100 WBC (Bld) 11.2 % Low 14.0 - 50.0 % [facility] Lymphocytes/Leukocytes Auto (Bld) [Pure # fraction] 1.8 E9/L Normal 1.0 - 4.0 E9/L [facility] Monocytes/100 WBC (Bld) 8.3 % Normal 4.0 - 14.0 % [facility] Monocytes/Leukocytes Auto (Bld) [Pure # fraction] 1.3 E9/L High 0.2 - 1.0 E9/L [facility] Neutrophils/100 WBC (Bld) 79.4 % High 36.0 - 75.0 % [facility] Neutrophils/Leukocytes Auto (Bld) [Pure # fraction] 12.5 E9/L High 2.0 - 7.5 E9/L [facility] HEMATOLOGYOrdered By: Nyla Rajan on 10-18-2022 Erythrocyte distribution width (RBC) [Ratio] 13.8 % Normal 10.9 - 14.2 % [facility] Hematocrit (Bld) [Volume fraction] 37.4 % Normal 34.0 - 46.0 % [facility] Hemoglobin (Bld) [Mass/Vol] 12.5 g/dL Normal 12.0 - 16.0 gm/dL [facility] MCH (RBC) [Entitic mass] 30.1 pg Normal 27. 0 - 34.0 pg [facility] MCHC (RBC) [Mass/Vol] 33.6 g/dL Normal 31.4 - 36.0 gm/dL [facility] MCV (RBC) [Entitic vol] 89.7 fL Normal 80.0 - 100.0 fL [facility] Platelet mean volume (Bld) [Entitic vol] 9.2 fL Normal 6.4 - 10.8 fL [facility] Platelets (Bld) [#/Vol] 146.0 E9/L Low 150. 0 - 500.0 E9/L [facility] RBC (Bld) [#/Vol] 4.2 E12/L Low 4.3 - 5.9 E12/L [facility] WBC corrected for nucl RBC Auto (Bld) [#/Vol] 15.8 E9/L High 4.0 - 11.0 E9/L [facility] Comment on above: Result Comment: Bhargav joseph reviewed by HUGO 10/18/2022 15:09:43 EDT. Laboratory - Microbiology an d Antimicrobial susceptibilityOrdered By: Nyla Rajan on 10-18-2022 Bacteria identified Cx Nom (U) 100 cfu/ml Mixed skin contaminants [facility] Monitor Recordon 10-18-2022 Monitor Record [id number]#1.00CD:127 Normal [facility] Monitor Record [id number]#1.00CD:127 Normal [facility] Monitor Record [id number]#1.00CD:127 Normal [facility] PT & PTTon 10-18-2022 aPTT Coag (PPP) [Time] 25.8 second(s) Normal 25.1-36.5 [facility] Comment on above: Result Comment: Para meter 15 days - 4 weeks 1 - 5 months 6 - 11 months 1 - 5 years 6 - 10 years 11 - 17 years PTT Mean: 35.4 (27.6-45.6) Mean: 33.5 (24.8-40.7) Mean: 32.4 (25.1-40.7) Mean: 31.6 (24.0-39.2) Mean: 31.6 (26.9-38.7) Mean: 31.0 (24.6-38.4) Pediatric Reference ranges were obtained from a study by Mirza Duckworth et al. prepared from 1437 samples obtained at 7 different centers using the same coagulation reagent and instrumentation as [facility]. Currently there are no coagulation studies available worldwide for children to 14 days, and no normal ranges. Heparin therapeutic range (represented by Anti-Factor Xa activity of 0.2 - 0.4 U/mL) corresponds to PTT of 56.6 - 109.0 sec. Performed By: #### 1 6974764, 7744518, 6374344, 03683455, 6617558, 32284152, 30501970, 6081303, 5993007 #### [facility] [address] [place] [address] INR Coag (PPP) [Relative time] 1.0 {INR} Invalid Interpretation Code [facility] Comment on above: Result Comment: INR results are specifically intended to assess patients stabilized on long-term Anticoagulation therapy suggested INR?s ?Less Intensive Anticoagulation? 2.0 ? 3.0 Conventional Range 3.0 ? 4.5 Performed By: #### 1 6521212, 0198282, 0536697, 12885476, 7181312, 04393597, 36512672, 9039908, 2882238 #### [facility] [address] [place] [address] PT Coag (PPP) [Time] 10.8 second(s) Normal 9.4-12.5 [facility] Comment on above: Result Comment: 15 d ays - 4 weeks 1 - 5 months 6 -11 months 1 ? 5 years 6 ? 10 years 11 -17 years Mean: 11.2 (9.5 ? 12.6) Mean: 11.0 (9.7 ? 12.8) Mean: 11.0 (9.8 ? 13.0) Mean: 11.3 (9.9 ? 13.4) Mean: 11.7 (10.0 ? 14.6) Mean: 11.8 (10.0 - 14.1) Pediatric Reference ranges were obtained from a study by Mirza Duckworth et al. prepared from 1437 samples obtained at 7 different centers using the same coagulation reagent and instrumentation as [facility]. Currently there are no coagulation studies available worldwide for children to 14 days, and no normal ranges. Performed By: #### 1 8580513, 2082743, 5591133, 24367168, 0625633, 52097705, 91795276, 1847040, 5600581 #### [facility] [address] [place] [address] Progress Note-Nurseon 2022 Progress Note-Nurse Patient: SIDNEY CANDELARIO Age: 22 years Sex: Female : 2000 Associated Diagnoses: None Author: Mell GRAFF, Meghna 25 week GI P0 in ER. heart tracing times 10 minutes obtained. Baseline 150bpm, moderate variability with accelerations increasing to 160. Audible movement. Pt states she can feel movement. Normal [facility] Salicylateon 10-18-2022 Salicylates [Mass/Vol] mg/dL Low 6-[address] [facility] Comment on above: Performed By: #### 1 9701359, 0899119, 5542302, 70578057, 3204708, 94715470, 96094631, 9034260, 9125927 ####[facility] [id number] TSH With T4fr Reflexon 10-18 TSH Qn 1.50 m[IU]/L Normal 0.34-5.60 [facility] Comment on above: Performed By: #### 1 3024855, 0712245, 9298946, 03266971, 0826257, 37111029, 24689952, 6963653, 8949449 ####[facility] [address] [place] [address] Troponinon 10-18-2022 Troponin I.cardiac [Mass/Vol] 47.10 pg/mL Abnormal 10.10-27.10 [facility] Comment on above: Result Comment: Crit ical Result verified by previous result\ Critical Result I_hsTnI:47.1 Called to FAVIAN AHUMADA at ER by VALERIA ROGERS and read back for confirmation at 10/18/2022 16:21:48 The 95% CI (Confidence Interval) PPV (Positive Predictive Value) for myocardial infarction in females is 38 pg/mL, in males 51 pg/mL. The results should be used in conjunction with clinical conditions of myocardial infarction. ([employer] High Sensitivity Troponin I Instructions For Use, Carina Jose Carlos, January 2018) Performed By: #### 2 [id number] #### [facility] [address] [place] [address] Troponin 0 Hr.on 10-18-2022 Troponin I.cardiac [Mass/Vol] 42.20 pg/mL Abnormal 10.10-27.10 [facility] Comment on above: Result Comment: Crit ical Result verified by repeat analysis\ Critical Result I_hsTnI:42.2 Called to FAVIAN AHUMADA at ER by VALERIA ROGERS and read back for confirmation at 10/18/2022 15:37:17 The 95% CI (Confidence Interval) PPV (Positive Predictive Value) for myocardial infarction in females is 38 pg/mL, in males 51 pg/mL. The results should be used in conjunction with clinical conditions of myocardial infarction. ([employer] High Sensitivity Troponin I Instructions For Use, [employer], January 2018) Performed By: #### 1 5323435, 5337920, 6298911, 17805292, 3730420, 45687808, 59333181, 0290032, 3979736 ####[facility] [address] [place] [address] Troponin 3 Hr.on 10-18-2022 Troponin I.cardiac [Mass/Vol] 49.60 pg/mL Abnormal 10.10-27.10 [facility] Comment on above: Result Comment: Crit ical Result verified by previous result\ Critical Result I_hsTnI:49.6 Called to DAVIDA TAYLOR at ER by VALERIA ROGERS and read back for confirmation at 10/18/2022 18:15:45 The 95% CI (Confidence Interval) PPV (Positive Predictive Value) for myocardial infarction in females is 38 pg/mL, in males 51 pg/mL. The results should be used in conjunction with clinical conditions of myocardial infarction. ([employer] High Sensitivity Troponin I Instructions For Use, [employer] [employer], January 2018) Performed By: #### 1 [id number] #### [facility] [address] [place] [address] Troponin 6 Hr.on 10-18-2022 Troponin I.cardiac [Mass/Vol] 53.00 pg/mL Abnormal 10.10-27.10 [facility] Comment on above: Result Comment: Crit ical Result verified by previous result\ Critical Result I_hsTnI:53.0 Called to DAVIDA TAYLOR at ER by VALERIA ROGERS and read back for confirmation at 10/18/2022 21:36:32 The 95% CI (Confidence Interval) PPV (Positive Predictive Value) for myocardial infarction in females is 38 pg/mL, in males 51 pg/mL. The results should be used in conjunction with clinical conditions of myocardial infarction. (Access High Sensitivity Troponin I Instructions For Use, Carina Jose Carlos, January 2018) Performed By: #### 1 [id number] #### [facility] [address] [place] [address] U Drug Screenon 10-18-2022 Amphetamines Screen method >1000 ng/mL Ql (U) Negative Normal Negative [facility] Comment on above: Result Comment: Nega tive Cutoff: <1000 ng/mL Performed By: #### 2 [id number], [id number], [id number] ####[facility] [address] [place] [address] Barbiturates Screen Ql (U) Negative Normal Negative [facility] Comment on above: Result Comment: Nega tive Cutoff: <200 ng/mL Performed By: #### 2 [id number], [id number], [id number] ####[facility] [address] [address] Benzodiazepines Ql (U) Negative Normal Negative [facility] Comment on above: Result Comment: Nega tive Cutoff: <200 ng/mL Performed By: #### 2 534055, [id number], [id number] ####[facility] [address] [place] [address] Cocaine Ql (U) Negative Normal Negative [facility] Comment on above: Result Comment: Nega tive Cutoff: <300 ng/mL Performed By: #### 2 842807, [id number], [id number] ####[facility] [address] [place] [address] Opiates Screen Ql (U) Negative Normal Negative [facility] Comment on above: Result Comment: Nega tive Cutoff: <300 ng/mL Performed By: #### 2 489889, 7666482, [id number] ####[facility] [address] [place] [address] Phencyclidine Screen method >25 ng/mL Ql (U) Negative Normal Negative [facility] Comment on above: Result Comment: Nega tive Cutoff: <25 ng/mL These drug screen results are to be used for medical (i.e., treatment) purposes only. Unconfirmed drug screening results must not be used for non-medical purposes (e.g., employment testing, legal testing). Performed By: #### 2 012168, [id number], [id number] ####[facility] [address] [place] [address] Tetrahydrocannabinol Screen method >50 ng/mL Ql (U) Negative Normal Negative [facility] Comment on above: Result Comment: Nega tive Cutoff: <50 ng/mL Performed By: #### 2 052732, [id number], [id number] ####[facility] [address] [place] [address] UA With Cult Reflexon 2022 Bacteria LM Ql (Urine sed) 2+ /HPF Abnormal Trace [facility] Comment on above: Performed By: #### 2 307001, [id number], [id number] ####[facility] [address] [place] [address] Bilirubin Ql (U) Negative Normal Negative [facility] Comment on above: Performed By: #### 2 569688, 1527110, [id number] ####[facility] [address] [place] [address] Clarity (U) SL CLOUDY Abnormal Clear [facility] Comment on above: Performed By: #### 2 125595, 1626664, [id number] ####[facility] [address] [place] [address] Color (U) YELLOW Normal Yellow [facility] Comment on above: Performed By: #### 2 820953, 4202638, [id number] ####[facility] [address] [place] [address] Epithelial cells.squamous LM.HPF (Urine sed) [#/Area] /[HPF] Normal 0-2 [facility] Comment on above: Performed By: #### 2 510961, 1492297, [id number] ####[facility] [address] [place] [address] Glucose Test strip (U) [Mass/Vol] Negative Normal Negative [facility] Comment on above: Performed By: #### 2 007403, 0999650, [id number] ####[facility] [address] [place] [address] Hemoglobin Ql (U) Negative Normal Negative [facility] Comment on above: Performed By: #### 2 285721, 7277436, [id number] ####[facility] [address] [place] [address] Ketones (U) [Mass/Vol] Negative Normal Negative [facility] Comment on above: Performed By: #### 2 159280, 4065658, [id number] ####[address] [address] [place].plasma/[place].R BC (Bld) [Mass ratio] 4-20 Normal 0-3 [facility] Comment on above: Performed By: #### 2 530404, 8664010, [id number] ####[facility] [address] [place] [address] Nitrite Ql (U) Negative Normal Negative [facility] Comment on above: Performed By: #### 2 934687, 9741257, [id number] ####[facility] [address] [place] [address] pH (U) 6.5 [pH] Invalid Interpretation Code 5.0-9.0 [facility] Comment on above: Performed By: #### 2 969656, 9141502, [id number] ####[facility] [address] [place] [address] Protein (U) [Mass/Vol] Negative Normal Negative [facility] Comment on above: Performed By: #### 2 762633, 6521511, [id number] ####[address] [place] [address] Specific gravity (U) [Rel density] 1.015 Invalid Interpretation Code 1.005-1.030 [facility] Comment on above: Performed By: #### 2 532588, 5751937, [id number] ####[facility] [address] [place] [address] Type of Urine collection method Clean Catch Normal [facility] Comment on above: Performed By: #### 2 819745, 4091799, [id number] ####[facility] [address] [place] [address] Urobilinogen Qn (U) 0.2 {Yg'U}/dL Normal 0.0-1.0 [facility] Comment on above: Performed By: #### 2 373822, 3411856, 87969153 ####[facility] [address] [place] [address] WBC Auto Ql (U) 1+ Abnormal Negative [facility] Comment on above: Performed By: #### 2 887661, 4387850, [id number] ####[facility] [address] [place] [address] WBC LM.HPF (Urine sed) [#/Area] 16-25 Abnormal 0-5 [facility] Comment on above: Performed By: #### 2 319403, 0315742, [id number] ####[facility] [address] [place] [address] URINALYSISOrdered By: Citlali Rogers on 10-18-2022 Bacteria LM Ql (Urine sed) 2+ /HPF Invalid Interpretation Code Trace/HPF [facility] UA Auto SS Bilirubin Ql (U) Negative (10/18/22 1:37 PM) Normal Negative [facility] UA Auto SS Clarity (U) Slightly Cloudy *ABN* (10/18/22 1:37 PM) Invalid Interpretation Code Clear [facility] UA Auto SS Color (U) Yellow (10/18/22 1:37 PM) Normal Yellow [facility] UA Auto SS Epithelial cells.squamous LM.HPF (Urine sed) [#/Area] /[HPF] Normal 0-2/HPF [facility] UA Aut o SS Glucose Test strip (U) [Mass/Vol] Negative (10/18/22 1:37 PM) Normal Negative [facility] UA Auto SS Hemoglobin Ql (U) Negative (10/18/22 1:37 PM) Normal Negative [facility] UA Auto SS Ketones (U) [Mass/Vol] Negative (10/18/22 1:37 PM) Normal Negative [facility] UA Auto SS [place].plasma/[place].R BC (Bld) [Mass ratio] 4-20 /HPF Normal 0-3/HPF [facility] UA Au to SS Nitrite Ql (U) Negative (10/18/22 1:37 PM) Normal Negative [facility] UA Auto SS pH (U) 6.5 *NA* (10/18/22 1:37 PM) Invalid Interpretation Code 5.0 - 9.0 [facility] UA Auto SS Protein (U) [Mass/Vol] Negative (10/18/22 1:37 PM) Normal Negative [facility] UA Auto SS Specific gravity (U) [Rel density] 1.015 *NA* (10/18/22 1:37 PM) Invalid Interpretation Code 1.005 - 1.030 [facility] UA Auto SS UA Spec Desc Clean Catch (10/18/22 1:37 PM) Normal [facility] UA Auto SS Urobilinogen Qn (U) 0.6800138 {Yg'U}/dL Normal 0.0 - 1.0 EU/dL [facility] UA Auto SS WBC Auto Ql (U) 1+ *ABN* (10/18/22 1:37 PM) Invalid Interpretation Code Negative [facility] UA Auto SS WBC LM.HPF (Urine sed) [#/Area] 16-25 /HPF Invalid Interpretation Code 0-5/HPF [facility] UA Auto SS XR Chest Single Viewon 10-18 XR Chest Single View Exam Date/Time: 10/18/2022 15:03 EDT Reason for Exam: Chest pain Report IMPRESSION: There are no acute cardiopulmonary changes. CLINICAL HISTORY: Chest pain EXAMINATION: XR Chest Single View COMPARISON: FINDINGS: The cardiomediastinal silhouette is unremarkable. The lungs are free of infiltrates effusions or consolidations. There are no acute osseous changes. Ordering Provider: Favian Ahumada FINAL REPORT Dictated: 10/18/2022 3:07 pm Omer MOSS, Napoleon Kowalski Signed (Electronic Signature): 10/18/2022 3:07 pm Signed by: Napoleon Tello MD, V. Transcribed by: FELI Technologist: HARPREET Technical Comments Radiation Dose: Ka,r in mGy = na DAP = na Normal [facility] eGFRon 10-18-2022 GFR/1.73 sq M.predicted among non-blacks MDRD (S/P/Bld) [Vol rate/Area] 138 mL/min/1.73 m2 Normal >=59 [facility] Comment on above: Order Comment: Order added by Discern Expert. Result Comment: Integrated Program Teacher sydnie kidney disease could be indicated at eGFR's of less than 60 mL/min/1.73m2. Kidney failure is indicated at less than 15 mL/min/1.73m2. Performed By: #### 1 [id number], 1405334, 1063359, [id number], 1263831, [id number], 25029927, 5723515, [id number] #### [facility] [address] [place] [address] US PREG ANATOMY SINGLEon US PREG ANATOMY SINGLE EXAMINATION: US P REG ANATOMY SINGLE, US PREG CERVICAL LENGTH HISTORY: screening COMPARISON: No relevant comparison available. TECHNIQUE: Transabdominal sonographic examination was performed for obstetrical and evaluation. FINDINGS: Number: 1 Heart Rate: 157.9 bpm H.B. /min Amniotic Fluid Volume: Subjectively normal Placental Location: Posterior with lower margin 3.5 cm from os. Cervix Length: 4.4 cm, closed. ANATOMY: Normal Structures -cerebellum, choroid plexus, cisterna magna, lateral cerebral ventricles, orbits, midline falx, hard palate, four-chamber heart, RVOT, LVOT, stomach, kidneys, bladder, umbilical cord insertion into abdomen, three-vessel cord, cervical spine, thoracic spine, lumbar spine, sacral spine, right upper extremity, left upper extremity, right lower extremity, left lower extremity. SUBOPTIMALLY SEEN: None ABNORMALITIES: None BIOMETRY: BPD: 5.1 cm 21 weeks 3 days; < 3% HC: 20.4 cm 22 weeks 4 days; 6% AC: 19.2 cm 24 weeks 0 days; 53% FL: 4.0 cm 23 weeks 1 days; 24% EFW:587.4 grams; 32% FL/AC: 21.1 FL/BPD: 79.2 HC/AC: 1.1 GESTATIONAL AGE: Age by EDC: 23 weeks 4 days SAMIR by EDC: 01/29/2023 Age by current US: 22 weeks 6 days SAMIR by current US: 02/03/2023 IMPRESSION: 1. Single live intrauterine with growth detailed above. 2. Biparietal diameter is less than 3rd percentile. Head circumference is 6th percentile. Electronically authenticated by: CAMELIA MENDEZ Date: 2022-10-08 15:26 Normal [facility] CHLAMYDIA/GONOCOCCUS TETO (SW AB/URINE/PAPon 08-28-2022 Chlamydia trachomatis, TETO Negative Normal Negative [facility] Comment on above: Performed By: #### C T/NGNA #### [facility] [address] [address] [address] Maribell Perea Neisseria gonorrhoeae, TETO Negative Normal Negative [facility] Comment on above: Performed By: #### C T/NGNA #### [facility] [address] [address] [address] Maribell Perea VAGINITIS/VAGINOSIS DNA PROB Romeo 08-25-2022 Beatrice species Negative Normal Negative [facility] Comment on above: Performed By: #### V AGINT ####[facility] [address] [address]Dr[address] Perea Gardnerella vaginalis Negative Normal Negative [facility] Comment on above: Performed By: #### V AGINT ####[facility] [address] [address]DrJose Perea Trichomonas vaginalis Negative Normal Negative [facility] Comment on above: Performed By: #### V AGINT ####[facility] [address] [address]Dr. Maribell Perea HEP B SURFACE ANTIGEN SCREEN on 07-25-2022 HBsAg Screen Negative Normal Negative [facility] Comment on above: Performed By: #### H BSANS #### [facility] [address] [place] [address] Dr. Maribell Perea HEPATITIS C VIRUS AB W/ REFL EX QUANTon 07-25-2022 HCV AB Non-Reactive Normal Non Reactive [facility] Comment on above: Performed By: #### H CVPCRR #### [facility] [address] [place] [address] Dr. Maribell Perea Interpretation: Comment Normal [facility] Comment on above: Result Comment: Not infected with HCV unless early or acute infection is suspected (which may be delayed in an immunocompromised individual), or other evidence exists to indicate HCV infection. Performed By: #### H CVPCRR #### [facility] [address] [place] [address] Dr. Maribell Perea HIV 1 AND 2 WITH REFLEXon HIV Screen 4th Generation wRfx Non-Reactive Normal Non Reactive [facility] Comment on above: Result Comment: HIV Negative HIV-1/HIV-2 antibodies and HIV-1 p24 antigen were NOT detected. There is no laboratory evidence of HIV infection. Performed By: #### H IV12 #### [facility] [address] [place] [address] Dr. Maribell Perea RPR QUANTon 07-25-2022 Rapid Plasma Reagin, Quant Non-Reactive Normal NonRea<1:1 [facility] Comment on above: Result Comment: Plea se Note: This test does not meet current guidelines for screening and diagnosis of syphilis. This test is intended for following treatment response in patients being treated for syphilis infection. To screen for syphilis infection, a reflex cascade that includes both RPR and a treponema-specific assay should be utilized, such as Treponema pallidum (Syphilis) Screening [place] (056943) or Rapid Plasma Reagin (RPR) Test With Reflex to Quantitative RPR and Confirmatory Treponema pallidum Antibodies (685580). Performed By: #### R PRQ #### [facility] [address] [place] [address] Dr. Maribell Perea RUBELLA AB IGGon 07-25-2022 Rubella Antibodies, IgG <0.90 Critically low Immune > 0.99 [facility] Comment on above: Result Comment: Non- immune <0.90 Equivocal 0.90 - 0.99 Immune >0.99 Performed By: #### R UBIGG #### [facility] [address] [address] [address] Maribell Perea CULTURE URINEon 07-23-2022 CULTURE URINE Culture Observations: NO GROWTH. Normal [facility] Comment on above: Performed By: #### U RCX ####[facility] [id number] Maribell Perea GLYCOHEMOGLOBIN A1Con 2022 ADA RECOMMENDATION SEE BELOW Normal [facility] Comment on above: Result Comment: ADA RECOMMENDED LIMIT 4.0 - 6.0 ADA THERAPEUTIC TARGET < 7.0 ACTION SUGGESTED > 7.0 Performed By: #### A 1C #### [facility] [address] [address] [address] Maribell Perea Glucose [Mass/Vol] 97 mg/dL Normal [facility] Comment on above: Performed By: #### A 1C #### [facility] [address] [place] [address] Dr. Maribell Perea HbA1c (Bld) [Mass fraction] 5.0 % Normal 4.5-6.2 [facility] Comment on above: Performed By: #### A 1C #### [facility] [address] [address] [address] Maribell Perea BEULAH BOX TEST PT SEND OUTo n 07-23-2022 SENT TO REF LAB 07/23/2022 Normal [facility] Comment on above: Performed By: #### N BOX #### [facility] [address] [place] [address] Dr. Maribell Perea TYPE AND SCREENon 07-23-2022 TYPE AND SCREEN Negative Normal [facility] Comment on above: Performed By: #### T NS ####[facility] [id number] Maribell Perea US PREG TVon 06-28-2022 US PREG TV EXAMINATION: US PREG TV HISTORY: Missed period COMPARISON: No relevant comparison available. FINDINGS: GESTATIONAL SAC: Present and normal appearing. YOLK SAC: Present and normal appearing. POLE: Present and normal appearing. CARDIAC: Present. UTERUS: Small subchorionic hematoma. OVARIES: Right: Cyst versus corpus lutein cyst. Left: Normal. CERVIX: 5.4 cm in length and closed. CUL-DE-SAC: Normal. OTHER: None. AGE BY LMP: 10 weeks 0 days SAMIR BY LMP: 01/24/2023 AGE BY US CRL: 9 weeks 2 days SAMIR BY US CRL: 01/29/2023 IMPRESSION: 1. Single live intrauterine . Electronically authenticated by: CAMELIA MENDEZ Date: 2022-06-28 09:17 Normal [facility] Vital Signs Date Time Vital Sign Value Performing Clinician Facility 06-18-2023 15:11-0500 Blood Pressure Location [facility] 06-18-2023 15:11-0500 Body temperature 97.88 [degF] [facility] 06-18-2023 15:11-0500 Diastolic blood pressure 76 mm[Hg] [facility] 06-18-2023 15:11-0500 Heart rate 90 /min [facility] 06-18-2023 15:11-0500 SaO2% (BldA) [Mass fraction] 98 % [facility] 06-18-2023 15:11-0500 Systolic blood pressure 116 mm[Hg] [facility] 10-19-2022 13:00-0400 Hourly Rounding [facility] 10-19-2022 13:00-0400 Promise to Return [facility] 10-19-2022 12:23-0400 Heart rate 101 /min [facility] 10-19-2022 12:23-0400 SaO2% (BldA) [Mass fraction] 98 % [facility] 10-19-2022 12:23-0400 Body temperature 98.06 [degF] [facility] 10-19-2022 12:23-0400 Diastolic blood pressure 65 mm[Hg] Jona Cristin [facility] 10-19-2022 12:23-0400 Mean blood pressure 77 mm[Hg] Jona Cristin [facility] 10-19-2022 12:23-0400 Systolic blood pressure 102 mm[Hg] Jona Cristin [facility] 10-19-2022 12:15-0400 Hourly Rounding Jona Cristin [facility] 10-19-2022 12:15-0400 Promise to Return Jona Cristin [facility] 10-19-2022 11:21-0400 Hourly Rounding Jona Cristin [facility] 10-19-2022 11:21-0400 Promise to Return Jona Cristin [facility] 10-19-2022 08:24-0400 Heart rate 103 /min Jona Cristin [facility] 10-19-2022 08:24-0400 SaO2% (BldA) [Mass fraction] 98 % Jona Cristin [facility] 10-19-2022 08:24-0400 Diastolic blood pressure 61 mm[Hg] Jona Cristin [facility] 10-19-2022 08:24-0400 Mean blood pressure 72 mm[Hg] Jona Cristin [facility] 10-19-2022 08:24-0400 Systolic blood pressure 93 mm[Hg] Jona Cristin [facility] 10-19-2022 08:23-0400 Body temperature 98.24 [degF] Jona Cristin [facility] 05-12-2023 05:12-0400 Heart rate 95 /min Jona Cristin [facility] 10-19-2022 05:12-0400 SaO2% (BldA) [Mass fraction] 98 % Jona Cristin [facility] 10-19-2022 05:12-0400 Diastolic blood pressure 41 mm[Hg] Jona Cristin [facility] 10-19-2022 05:12-0400 Mean blood pressure 56 mm[Hg] Jona Cristin [facility] 10-19-2022 05:12-0400 Systolic blood pressure 86 mm[Hg] Jona Cristin [facility] 10-19-2022 05:12-0400 Body temperature 98.6 [degF] Jona Cristin [facility] 10-18-2022 22:59-0400 Respiratory rate 20 /min Jona Cristin [facility] 10-18-2022 21:45-0400 Mean blood pressure 84 mm[Hg] Jona Cristin [facility] 10-18-2022 21:45-0400 Respiratory rate 15 /min Jona Cristin [facility] 10-18-2022 21:00-0400 Mean blood pressure 82 mm[Hg] Jona Cristin [facility] 10-18-2022 21:00-0400 Respiratory rate 17 /min Jona Cristin [facility] 10-18-2022 20:00-0400 Mean blood pressure 89 mm[Hg] Jona Cristin [facility] 10-18-2022 14:08-0400 gluc 93 mg/dL Jona Cristin [facility] 10-18-2022 14:08-0400 gluc Jona Amaral [facility] 10-18-2022 14:08-0400 Respiratory rate 15 /min Jona Amaral [facility] 10-18-2022 13:30-0400 Heart rate 108 /min Jona Amaral [facility] 10-18-2022 13:30-0400 Respiratory rate 16 /min Jona Amaral [facility] Encounters Encounter Date Encounter Type Care Provider Facility Start: 12-25-2023 End: 12-25-2023 ambulatory MAGDA BALA Not Available Start: 11-27-2023 End: 11-27-2023 ambulatory MAGDA BALA Not Available Start: 10-29-2023 End: 10-29-2023 ambulatory KRISTINE BEJARANO Not Available Start: 10-01-2023 End: 10-01-2023 ambulatory MAGDA BALA Not Available Start: 09-05-2023 End: 09-05-2023 ambulatory MAGDA BALA Not Available Start: 06-18-2023 End: 06-18-2023 Lab Drop off Mike Fuentes [facility] Start: 06-18-2023 End: 06-18-2023 Patient encounter procedure Mike Fuentes [facility] Start: 10-22-2022 End: 10-22-2022 ambulatory Roslyn Valdes Facility:CD:[id number] Start: 10-18-2022 End: 10-19-2022 ambulatory Sahil BUTLER Facility[facility] Start: 10-18-2022 End: 10-19-2022 Observation Jona S Cristin [facility] Start: 10-06-2022 End: 10-07-2022 ambulatory KRISTINE BEJARANO . Facility: Start: 08-23-2022 End: 08-23-2022 ambulatory KRISTINE BEJARANO . Facility:[facility] Start: 07-23-2022 End: 07-24-[address] MAGDA LIMON . Facility:[facility] Start: 06-28-2022 End: 06-29-[address] MAGDA LIMON . Facility:[facility] Start: 06-06-2022 ambulatory Esperanzacathy Dong y:[facility] [place] Immunizations Immunization Date Immunization Notes [facility]21 meningococcal B vacc ine, recombinant, OMV, adjuvanted [facility] [place] 02-09-2021 meningococcal oligosaccharide (groups A, C, Y and W-135) diphtheria toxoid conjugate vaccine (MCV4O) Info [facility] 02-09-2021 hepatitis A vaccine, pediatric/adolescent dosage, 2 dose schedule [employer] [facility] 07-14-2018 hepatitis A vaccine, adult dosage Info [facility] 07-14-2018 HPV, unspecified formulation [employer] [facility] 07-14-2018 meningococcal B vacc ine, fully recombinant Info [facility] 12-26-2015 HPV, unspecified formulation Info [facility] 12-26-2015 meningococcal ACWY vaccine, unspecified formulation Info [facility] 12-26-2015 tetanus toxoid, unspecified formulation Info [facility] 04-28-2009 influenza virus vacc ine, unspecified formulation Info [facility] 04-28-2008 influenza virus vacc ine, unspecified formulation Info [facility] [place] 02-26-2008 diphtheria, tetanus toxoids and acellular pertussis vaccine Info [facility] 02-26-2008 measles, mumps and rubella virus vaccine Info [facility] 02-26-2008 poliovirus vaccine, unspecified formulation Info [facility] 02-26-2008 varicella virus vaccine [employer] [facility] 10-27-2003 diphtheria, tetanus toxoids and acellular pertussis vaccine Info [facility] 10-27-2003 haemophilus influenz ae type b vaccine, PRP-OMP conjugate Info [facility] 10-27-2003 measles, mumps and rubella virus vaccine Info [facility] 10-27-2003 varicella virus vaccine [employer] [facility] 04-28-2003 diphtheria, tetanus toxoids and acellular pertussis vaccine Info [facility] 04-28-2003 haemophilus influenz ae type b vaccine, PRP-OMP conjugate Info [facility] [place] 04-28-2003 hepatitis B vaccine, pediatric or pediatric/adolescent dosage Info [facility] 04-28-2003 pneumococcal conjuga te vaccine, 13 valent Info [facility] 04-28-2003 poliovirus vaccine, unspecified formulation Info [facility] 2002 diphtheria, tetanus toxoids and acellular pertussis vaccine Are You a Humaner [facility] 2002 haemophilus influenz ae type b vaccine, PRP-OMP conjugate Info [facility] 2002 pneumococcal conjuga te vaccine, 13 valent [employer] [facility] 2002 poliovirus vaccine, unspecified formulation [employer] [facility] 2002 diphtheria, tetanus toxoids and acellular pertussis vaccine [employer] [facility] 2002 haemophilus influenz ae type b vaccine, PRP-OMP conjugate Info [facility] 2002 hepatitis B vaccine, pediatric or pediatric/adolescent dosage [employer] [facility] 2002 pneumococcal conjuga te vaccine, 13 valent [employer] [facility] 2002 poliovirus vaccine, unspecified formulation Info [facility] 2002 hepatitis B vaccine, pediatric or pediatric/adolescent dosage Are You a Humaner [facility] Payers Date Payer Category Payer Unknown [id number] 2023 Private Health Insurance [id number] 2021 Private Health Insurance 2002 Unknown [id number] 2.16.84 [id number] 2002 Unknown [id number] 2.16.84 [id number] 2002 Unknown [id number] 2.16.84 [id number] 2002 Unknown [id number] 2.16.84 [id number] 2002 Unknown [id number] 2.16.8 [id number] 2002 Unknown [id number] 2.16.8 [id number] 2002 Unknown [id number] 2.16.84 [id number] 2002 Unknown [id number] 2.16.84 [id number] 2002 Unknown [id number] 2.16.84 [id number] 2002 Unknown [id number] 2.16.84 [id number] 2002 Unknown [id number] 2.16.84 [id number] 1959 Self-pay 1959 Unknown [id number] Unknown [id number] 2.16.84 [id number] Social History Date Type Detail Facility Tobacco [facility] Comment on above: denies Tobacco smoking status No Smokin g Status Entered [facility] Sex Assigned At Female [facility] Start: 06-18-2023 Tobacco smoking status Never s moked tobacco (finding) [facility] Comment on above: denies Tobacco smoking status Never [facility] Comment on above: denies Functional Status Date Assessment Result Facility 06-18-2023 Functional Status N/A [facility] 10-18-2022 Functional Status N/A [facility] 10-18-2022 Functional Status [facility] Clinical Notes 10-18-2022 to 06-18-2023 Note Date & Type Note Facility 06-18-2023 Hospital Discharge instructions Patient Education 06/18/2023 16:34:28 Pharyngitis, Bxhj-zf-Jsrp Pharyngitis Pharyngitis is a sore throat (pharynx). This is when there is redness, pain, and swelling in your throat. Most of the time, this condition gets better on its own. In some cases, you may need medicine. What are the causes? An infection from a virus. An infection from bacteria. Allergies. What increases the risk? Being 5 24 years old. Being in crowded environments. These include: ?Daycares. ?Schools. ?Dormitories. Living in a place with cold temperatures outside. Having a weakened disease-fighting (immune) system. What are the signs or symptoms? Symptoms may vary depending on the cause. Common symptoms include: Sore throat. Tiredness (fatigue). Low-grade fever. Stuffy nose. Cough. Headache. Other symptoms may include: Glands in the neck (lymph nodes) that are swollen. Skin rashes. Film on the throat or tonsils. This can be caused by an infection from bacteria. Vomiting. Red, itchy eyes. Loss of appetite. Joint pain and muscle aches. Tonsils that are temporarily bigger than usual (enlarged). How is this treated? Many times, treatment is not needed. This condition usually gets better in 3 4 days without treatment. If the infection is caused by a bacteria, you may be need to take antibiotics. Follow these instructions at home: Medicines Take qcem-lmy-sdprepu and prescription medicines only as told by your doctor. If you were prescribed an antibiotic medicine, take it as told by your doctor. Do not stop taking the antibiotic even if you start to feel better. Use throat lozenges or sprays to soothe your throat as told by your doctor. Children can get pharyngitis. Do not give your child aspirin. Managing pain To help with pain, try: Sipping warm liquids, such as: ?Broth. ?Herbal tea. ?Warm water. Eating or drinking cold or frozen liquids, such as frozen ice pops. Rinsing your mouth (gargle) with a salt water mixture 3 4 times a day or as needed. ?To make salt water, dissolve 1 tsp (3 6 g) of salt in 1 cup (237 mL) of warm water. ?Do not swallow this mixture. Sucking on hard candy or throat lozenges. Putting a cool-mist humidifier in your bedroom at night to moisten the air. Sitting in the bathroom with the door closed for 5 10 minutes while you run hot water in the shower. General instructions Do not smoke or use any products that contain nicotine or tobacco. If you need help quitting, ask your doctor. Rest as told by your doctor. Drink enough fluid to keep your pee (urine) pale yellow. How is this prevented? Wash your hands often for at least 20 seconds with soap and water. If soap and water are not available, use hand kindergartner. Do not touch your eyes, nose, or mouth with unwashed hands. Wash hands after touching these areas. Do not share cups or eating utensils. Avoid close contact with people who are sick. Contact a doctor if: You have large, tender lumps in your neck. You have a rash. You cough up green, yellow-brown, or bloody spit. Get help right away if: You have a stiff neck. You drool or cannot swallow liquids. You cannot drink or take medicines without vomiting. You have very bad pain that does not go away with medicine. You have problems breathing, and it is not from a stuffy nose. You have new pain and swelling in your knees, ankles, wrists, or elbows. These symptoms may be an emergency. Get help right away. Call your local emergency services (911 in the [place] Do not wait to see if the symptoms will go away. Do not drive yourself to the hospital. Summary Pharyngitis is a sore throat (pharynx). This is when there is redness, pain, and swelling in your throat. Most of the time, pharyngitis gets better on its own. Sometimes, you may need medicine. If you were prescribed an antibiotic medicine, take it as told by your doctor. Do not stop taking the antibiotic even if you start to feel better. This information is not intended to replace advice given to you by your health care provider. Make sure you discuss any questions you have with your health care provider. Document Revised: 08/23/2021 Document Reviewed: 08/23/2021 [employer] Patient Education 2022 [employer]. 06/18/2023 16:34:25 Viral Illness, Adult Viral Illness, Adult Viruses are tiny germs that can get into a person's body and cause illness. There are many different types of viruses, and they cause many types of illness. Viral illnesses can range from mild to severe. They can affect various parts of the body. Short-term conditions that are caused by a virus include colds and the flu (influenza). Long-term conditions that are caused by a virus include herpes, shingles, and HIV (human immunodeficiency virus) infection. A few viruses have been linked to certain cancers. What are the causes? Many types of viruses can cause illness. Viruses invade cells in your body, multiply, and cause the infected cells to work abnormally or . When these cells , they release more of the virus. When this happens, you develop symptoms of the illness, and the virus continues to spread to other cells. If the virus takes over the function of the cell, it can cause the cell to divide and grow out of control. This happens when a virus causes cancer. Different viruses get into the body in different ways. You can get a virus by: Swallowing food or water that has come in contact with the virus (is contaminated). Breathing in droplets that have been coughed or sneezed into the air by an infected person. Touching a surface that has been contaminated with the virus and then touching your eyes, nose, or mouth. Being bitten by an insect or animal that carries the virus. Having sexual contact with a person who is infected with the virus. Being exposed to blood or fluids that contain the virus, either through an open cut or during a transfusion. If a virus enters your body, your body's defense system (immune system) will try to fight the virus. You may be at higher risk for a viral illness if your immune system is weak. What are the signs or symptoms? You may have these symptoms, depending on the type of virus and the location of the cells that it invades: Cold and flu viruses: ?Fever. ?Headache. ?Sore throat. ?Muscle aches. ?Stuffy nose (nasal congestion). ?Cough. Digestive system (gastrointestinal) viruses: ?Fever. ?Pain in the abdomen. ?Nausea. ?Diarrhea. Liver viruses (hepatitis): ?Loss of appetite. ?Tiredness. ?Skin or the white parts of your eyes turning yellow (jaundice). Brain and spinal cord viruses: ?Fever. ?Headache. ?Stiff neck. ?Nausea and vomiting. ?Confusion or sleepiness. Skin viruses: ?Warts. ?Itching. ?Rash. Sexually transmitted viruses: ?Discharge. ?Swelling. ?Redness. ?Rash. How is this diagnosed? This condition may be diagnosed based on one or more of the following: Symptoms. Medical history. Physical exam. Blood test, sample of mucus from your lungs (sputum sample), stool sample, or a swab of body fluids or a skin sore (lesion). How is this treated? Viruses can be hard to treat because they live within cells. Antibiotic medicines do not treat viruses because these medicines do not get inside cells. Treatment for a viral illness may include: Resting and drinking plenty of fluids. Medicines to relieve symptoms. These can include tgyh-ubl-nootqpb medicine for pain and fever, medicines for cough or congestion, and medicines to relieve diarrhea. Antiviral medicines. These medicines are available only for certain types of viruses. Some viral illnesses can be prevented with vaccinations. A common example is the flu shot. Follow these instructions at home: Medicines Take madc-nvj-rrvatov and prescription medicines only as told by your health care provider. If you were prescribed an antiviral medicine, take it as told by your health care provider. Do not stop taking the antiviral even if you start to feel better. Be aware of when antibiotics are needed and when they are not needed. Antibiotics do not treat viruses. You may get an antibiotic if your health care provider thinks that you may have, or are at risk for, a bacterial infection and you have a viral infection. ?Do not ask for an antibiotic prescription if you have been diagnosed with a viral illness. Antibiotics will not make your illness go away faster. ?Frequently taking antibiotics when they are not needed can lead to antibiotic resistance. When this develops, the medicine no longer works against the bacteria that it normally fights. General instructions Drink enough fluids to keep your urine pale yellow. Rest as much as possible. Return to your normal activities as told by your health care provider. Ask your health care provider what activities are safe for you. Keep all follow-up visits as told by your health care provider. This is important. How is this prevented? To reduce your risk of viral illness: Wash your hands often with soap and water for at least 20 seconds. If soap and water are not available, use hand kindergartner. Avoid touching your nose, eyes, and mouth, especially if you have not washed your hands recently. If anyone in your household has a viral infection, clean all household surfaces that may have been in contact with the virus. Use soap and hot water. You may also use bleach that you have added water to (diluted). Stay away from people who are sick with symptoms of a viral infection. Do not share items such as toothbrushes and water bottles with other people. Keep your vaccinations up to date. This includes getting a yearly flu shot. Eat a healthy diet and get plenty of rest. Contact a health care provider if: You have symptoms of a viral illness that do not go away. Your symptoms come back after going away. Your symptoms get worse. Get help right away if you have: Trouble breathing. A severe headache or a stiff neck. Severe vomiting or pain in your abdomen. These symptoms may represent a serious problem that is an emergency. Do not wait to see if the symptoms will go away. Get medical help right away. Call your local emergency services (911 in the [place] Do not drive yourself to the hospital. Summary Viruses are types of germs that can get into a person's body and cause illness. Viral illnesses can range from mild to severe. They can affect various parts of the body. Viruses can be hard to treat. There are medicines to relieve symptoms, and there are some antiviral medicines. If you were prescribed an antiviral medicine, take it as told by your health care provider. Do not stop taking the antiviral even if you start to feel better. Contact a health care provider if you have symptoms of a viral illness that do not go away. This information is not intended to replace advice given to you by your health care provider. Make sure you discuss any questions you have with your health care provider. Document Revised: 10/10/2020 Document Reviewed: 04/05/2020 [employer] Patient Education 2022 [employer]. [facility] 06-18-2023 Evaluation + Plan note Diagnostic Tests PendingGroup A Strep by PCR 06/18/23 [facility] 01-23-2023 Note Procedure History None. Hospital Course 22-year-old female who is 25-week presented with dizziness. Last Saturday patient had an episode of dizziness. Since Saturday patient has been experiencing frequent episodes of dizziness. Patient does not have room spinning sensation. Patient mentioned she feels drunk and has lightheadedness at times. Patient mentioned at times she felt like she was going to pass out but episodes of syncope. No chest pain, palpitations, shortness of breath, numbness/tingling, focal motor weakness, aphasia, dysphagia, tinnitus, PND, orthopnea, peripheral edema, fever, chills, nausea, vomiting, diarrhea, melena, hematochezia, abdominal pain, sore throat, runny nose, sneezing, coughing, dysuria, increased/decreased urinary frequency, urinary urgency, vaginal discharge. No alcohol use, drug abuse. ED physician discussed case with station installer and repairer Dr. Butler and WET SANDER Dr. Mortensen. Telemetry monitoring and echocardiogram was recommended. Borderline elevation of troponin in ED with troponin in 40s. Heart rate 100s on admission which came down to 90s after 1 L normal saline bolus. Near syncope. Chest x-ray, ECG unremarkable. Mild tachycardia on admission with heart rate 100s. Troponin max around 53. TSH, ethanol, salicylate, acetaminophen, Urine toxicology, troponin trend, orthostatics unremarkable Overnight telemetry unremarkable. Echocardiogram unremarkable. Dizziness probably due to dehydration and . Possible UTI contributing factor. Unable to start beta-bryanna for mild tachycardia as SBP 90?100s. Cortisol level unremarkable. Discussed case with Dr. Butler who wants to follow-up with the patient outpatient. UTI. Abnormal UA in asymptomatic woman. UA with 3+ bacteria, 16?25 WBCs, 1+ LE. Leukocytosis with WBCs 15.8. Received ceftriaxone for 2 days, discharged on 4 days of Keflex. Urine culture contaminant. Patient discharged home in stable condition. Patient will follow with PCP and cardiology outpatient. Physical Exam General: alert, NAD HEENT: eyes show no evidence of icterus Cardiovascular: regular rate and rhythm, no S3/S4 Respiratory: Lungs CTABL, respirations non labored Abdomen: soft, non-tender, positive bowel sounds, no organomegaly, no guarding, no rigidity Psych: cooperative Extremities: no peripheral edema Neurological: speech normal Discharge Plan Discharge Medication List Prescriptions Keflex 500 mg Cap, 500 mg= 1 cap(s), Oral, q6hr Home No active home medications Follow-up No qualifying data available Disregard this discharge summary as this is written under the wrong FIN [facility] Comment on above: Result Comment: Elec tronically Signed By: Jona Amaral MD\.br\Date and Time Signed: 11/27/22 13:27 EDT 11-27-2022 Note Admission and Discha rge Information Admitting Physician - Jona Amaral MD Admitting Diagnoses: Discharge Diagnoses 1. Near syncope, 10/18/2022 2. UTI (urinary tract infection), 10/18/2022 3. Hypokalemia, 10/18/2022 4. Elevated troponin, 10/18/2022 5. , 10/19/2022 Dizziness, 10/18/2022 Procedure History None. Hospital Course 22-year-old female who is 25-week presented with dizziness. Last Saturday patient had an episode of dizziness. Since Saturday patient has been experiencing frequent episodes of dizziness. Patient does not have room spinning sensation. Patient mentioned she feels drunk and has lightheadedness at times. Patient mentioned at times she felt like she was going to pass out but episodes of syncope. No chest pain, palpitations, shortness of breath, numbness/tingling, focal motor weakness, aphasia, dysphagia, tinnitus, PND, orthopnea, peripheral edema, fever, chills, nausea, vomiting, diarrhea, melena, hematochezia, abdominal pain, sore throat, runny nose, sneezing, coughing, dysuria, increased/decreased urinary frequency, urinary urgency, vaginal discharge. No alcohol use, drug abuse. ED physician discussed case with station installer and repairer Dr. Butler and WET SANDER Dr. Mortensen. Telemetry monitoring and echocardiogram was recommended. Borderline elevation of troponin in ED with troponin in 40s. Heart rate 100s on admission which came down to 90s after 1 L normal saline bolus. Near syncope. Chest x-ray, ECG unremarkable. Mild tachycardia on admission with heart rate 100s. Troponin max around 53. TSH, ethanol, salicylate, acetaminophen, Urine toxicology, troponin trend, orthostatics unremarkable Overnight telemetry unremarkable. Echocardiogram unremarkable. Dizziness probably due to dehydration and . Possible UTI contributing factor. Unable to start beta-bryanna for mild tachycardia as SBP 90?100s. Cortisol level unremarkable. Discussed case with Dr. Butler who wants to follow-up with the patient outpatient. UTI. Abnormal UA in asymptomatic woman. UA with 3+ bacteria, 16?25 WBCs, 1+ LE. Leukocytosis with WBCs 15.8. Received ceftriaxone for 2 days, discharged on 4 days of Keflex. Urine culture contaminant. Patient discharged home in stable condition. Patient will follow with PCP and cardiology outpatient. Physical Exam General: alert, NAD HEENT: eyes show no evidence of icterus Cardiovascular: regular rate and rhythm, no S3/S4 Respiratory: Lungs CTABL, respirations non labored Abdomen: soft, non-tender, positive bowel sounds, no organomegaly, no guarding, no rigidity Psych: cooperative Extremities: no peripheral edema Neurological: speech normal Laboratory Results Acetaminophen Level (10/18/2022) Acetaminoph Lvl - <10 mcg/mL Automated Diff (10/19/2022) Neutro Auto - 78.2 % Lymph Auto - 12.3 % Garza Auto - 8.5 % Eos Auto - 0.6 % Basophil Auto - 0.4 % Neutro Absolute - 12.7 E9/L Lymph Absolute - 2.0 E9/L Garza Absolute - 1.4 E9/L Eos Absolute - 0.1 E9/L Basophil Absolute - 0.1 E9/L Basic Metabolic Panel (10/19/2022) Glucose Lvl - 82 mg/dL BUN - 5 mg/dL Creatinine - 0.5 mg/dL BUN/Creat Ratio - 10 Sodium Lvl - 135 mmol/L Potassium Lvl - 3.6 mmol/L Chloride - 106 mmol/L CO2 - 23 mmol/L AGAP - 10 mEq/L Calcium Lvl - 8.0 mg/dL BMP (10/18/2022) Glucose Lvl - 97 mg/dL BUN - 7 mg/dL Creatinine - 0.5 mg/dL BUN/Creat Ratio - 14 Sodium Lvl - 136 mmol/L Potassium Lvl - 3.3 mmol/L Chloride - 102 mmol/L CO2 - 26 mmol/L AGAP - 11 mEq/L Calcium Lvl - 8.7 mg/dL CBC w/ Auto Diff (10/19/2022) WBC - 16.3 E9/L RBC - 3.7 E12/L Hgb - 11.3 gm/dL Hct - 34.1 % MCV - 91.3 fL MCH - 30.3 pg MCHC - 33.2 gm/dL RDW - 13.6 % Platelet - 146.0 E9/L MPV - 8.9 fL Cortisol (10/19/2022) Cortisol - 18.4 mcg/dL Drug Screen Urine (10/18/2022) U Amph Scr - Negative U Mitzy Scr - Negative U Benzodia Scr - Negative U Cannab Scr - Negative U Cocaine Scr - Negative U Opiate Scr - NEG1 U PCP Scr - Negative eGFR (10/19/2022) eGFR - 138 mL/min/1.73 m2 Ethanol Level (10/18/2022) Ethanol Lvl - <5 mg/dL Magnesium Level (10/19/2022) Magnesium - 1.7 mg/dL Phosphorus Level (10/19/2022) Phosphorus - 3.8 mg/dL PT & PTT (10/18/2022) PT - 10.8 second(s) INR - 1.0 PTT - 25.8 second(s) Salicylate Level (10/18/2022) Salicylate Lvl - <4 mg/dL Troponin (10/18/2022) Troponin - 47.10 pg/mL Troponin 0 Hr. (10/18/2022) Troponin - 42.20 pg/mL Troponin 3 Hr. (10/18/2022) Troponin - 49.60 pg/mL Troponin 6 Hr. (10/18/2022) Troponin - 53.00 pg/mL Troponin 9 Hr. (10/19/2022) Troponin - 48.10 pg/mL TSH With T4fr Reflex (10/18/2022) TSH - 1.50 mcIU/mL UA With Cult Reflex (10/18/2022) UA Spec Desc - Clean Catch UA Color - Yellow2 UA Clarity - Slightly Cloudy3 UA Spec Grav - 1.015 UA pH - 6.5 UA Protein - NEGATIVE1 UA Glucose - NEGATIVE1 UA Ketones - NEGATIVE1 UA Bili - NEGATIVE1 UA Blood - NEGATIVE1 UA Nitri (more content not included)... [facility] Comment on above: Result Comment: Elec tronically Signed By: Cristin MOSS, Jona Rivera\.br\Date and Time Signed: 11/27/22 13:28 EDT 10-20-2022 Note HOSPITAL REGULATIONS : All Positive and Important Negative Findings Shall Be Recorded Date of Consultation: 10/18/2022 Attending Physician: Favian Ahumada D.O. Consulting Physician: Jono Mortensen M.D. EMERGENCY ROOM CONSULTATION Intrauterine at 20 weeks gestation. Patient with near syncopal episodes. Elevated troponin level. Consultation for Dr. Favian Ahumada. The patient is a 22 year old, I, Para 0, 0, white female who presented to the Emergency Room at 25 weeks gestation, having been a patient of Dr. Limon, reporting three days of dizziness with near syncopal type episodes. She had several discrete episodes of nearly passing out, never really passed out. There is no vertigo. She denies chest pain or shortness of breath. She denies palpitations. Her has been followed along in normal care. Evaluation at the Emergency Room was clear for her electrocardiogram being normal and her laboratory studies were essentially unremarkable. Platelet count was 146. Blood counts 12.5 and 37.4 but her troponin level returned 49.6. On evaluation in the Emergency Room there was no evidence of any kind of pulmonary embolus. She had no symptoms, no chest pain, no shortness of breath and her pO2 levels were above 97%. Obstetrically the patient was evaluated and found to have reactoid type of tracing for 25 weeks gestation and the uterus was soft, non-tender. After a discussion with the Emergency Room physician it was felt that this was not an obstetrical issue currently and that because of the advanced troponin level that further cardiac evaluation would be indicated. It would be indicated to perform the normal studies for this with echography and consultation with Cardiology. Dr. Ahumada and I agreed that this was the best course with a short stay to allow for that evaluation to occur. We discussed the fact that should they need any obstetrical consultation that they could feel free to call but currently the was in good shape without evidence of any stress or problems with this particular episode. Thank you for allowing me to participate in this patient's care. Robert Schmitt Dictated: 10/19/2022 [id number] Transcribed: 10/19/2022 cc:Magda Limon D.O. [facility] Comment on above: Result Comment: Elec tronically Signed By: Jono Mortensen MD\.br\Date and Time Signed: 10/20/22 02:24 EDT 10-19-2022 Note Order received, corinne t reviewed. Attempted PT evaluation at 1424 on 10/19/22. Pt. is out of room and has been discharged from acute medical facility prior to completion of PT evaluation. No PT charges. [facility] 10-19-2022 Note Echocardiology Procedure Exam Date/Time Accession # Ordering Dr. Longoria Transthoracic 10/19/2022 12:02 EDT [id number] Favian Ahumada DO Complete CPT code 28458 [id number] Reason for Exam (Echo Transthoracic Complete) Syncope Report [facility] [address] [place] [address] Adult Echocardiogram Report Name: SIDNEY CANDLEARIO Study Date: 10/19/2022 11:33 AM BP: 93/61 mmHg Patient Location: [address] [place] [address] HR: 95 : 2000 Gender: Female Height: 60 in Age: 22 yrs Ethnicity: [facility] Weight: 110 lb Reason For Study: Syncope BSA: 1.4 m2 History: No cardiac history per patient Ordering Physician: Diego^Ale Performed By: Ro Guerrero, [facility] Interpretation Summary Ejection Fraction = 65-70%. The left ventricular wall motion is normal. Normal diastolic function. There is trace tricuspid regurgitation. Right ventricular systolic pressure is 29 mmHg. Discussed findings of the echocardiogram with Dr. Amaral at 12:11 PM. Procedure A complete two-dimensional transthoracic echocardiogram was performed (2D, M-mode, spectral and color flow Doppler). Study quality is good. I WMSI = 1.00 % Normal = 100 Segments Size X - Cannot 2 - 1-2 small Interpret 1 - Normal Hypokinetic 3 - Akinetic 4 - Dyskinetic3-5 moderate 5 - Aneurysmal 6-14 large 15-16 diffuse Echocardiology Report Left Ventricle The left ventricle is normal in size. Ejection Fraction = 65-70%. The left ventricular wall motion is normal. Normal diastolic function. Left Atrium The left atrial size is normal. Right Atrium Right atrial size is normal. Right Ventricle The right ventricular systolic function is normal. Aortic Valve The aortic valve is trileaflet. Mitral Valve Mitral valve structure is normal. Tricuspid Valve Structurally normal tricuspid valve. There is trace tricuspid regurgitation. Right ventricular systolic pressure is 29 mmHg. Pulmonic Valve The pulmonic valve is normal. Arteries The aortic root is normal in size. Venous The inferior vena cava is normal in size, and collapses normally with respiration. Effusion There is no pericardial effusion. MMode/2D Measurements & Calculations RVDd: 2.2 cm LVIDd: 3.8 cm FS: 41.0 % Ao root diam: 2.3 cm IVSd: 1.0 cm LVIDs: 2.2 cm EDV(Teich): 60.7 ml Ao root area: 4.3 cm2 LVPWd: 0.88 cm ESV(Teich): 16.6 ml LA dimension: 2.3 cm EF(Teich): 72.6 % LVLd ap4: 7.9 cm EDV(MOD-sp2): 79.0 ml SV(MOD-sp4): 47.3 ml TAPSE: 3.2 cm EDV(MOD-sp4): 69.7 ml ESV(MOD-sp2): 33.8 ml LVLs ap4: 6.3 cm EF(MOD-sp2): 57.2 % ESV(MOD-sp4): 22.4 ml EF(MOD-sp4): 67.9 % IVC Diam: 1.4 cm RVIDd/LVIDd: 0.59 EF (MOD-bp): 61.6 % LA Vol Index: 14.7 ml/m2 Doppler Measurements & Calculations MV E max benedict: 93.0 cm/sec MV dec time: 0.19 sec Ao V2 max: 175.9 cm/sec LV V1 max P.8 mmHg MV A max benedict: 64.7 cm/sec Ao max P.4 mmHg LV V1 max: 120.8 cm/sec Echocardiology Report MV E/A: 1.4 Lat Peak E' Benedict: 22.3 cm/sec E/E' Lat: 4.2 Med Peak E' Benedict: 17.0 cm/sec E/E' Med: 5.5 TR max benedict: 256.3 cm/sec RAP systole: 3.0 mmHg AV VR: 0.69 TR max P.3 mmHg RVSP(TR): 29.3 mmHg FINAL REPORT Dictated: 10/19/2022 11:33 am Sahil Butler MD Signed (Electronic Signature): 10/19/2022 12:12 pm Signed by: Sahil Butler MD Transcribed by: MAYRA Technologist: [facility] 10-19-2022 Evaluation + Plan note Extrac shahrzad from: Title:Consult Note Author:Sahil Butler MD te:10/19/22 1. Near syncope (R55: Syncop e and collapse) Patient presents with positional lightheadedness and dizziness mostly while standing, tachycardia, and hypotension. In addition the patient has had subtly abnormal troponins which may be secondary to her tachycardia. Patient has a small stature and has a small fetus. She is asymptomatic from a chest pain standpoint. TSH is normal. Orthostatics are pending. Would recommend we obtain a 2D echo with Doppler to evaluate her LV function and pulmonary pressures. It is unlikely the patient had a pulmonary embolism as she has no shortness of breath. Would recommend holding off on beta-bryanna therapy at this time given the relative hypotension. Recommend pushing the patient with p.o. fluids in order to maintain her fluid status. Would not recommend CTA of the chest for pulmonary embolism or VQ scan at this time. Would not recommend any additional cardiac testing other than echocardiogram. Patient may require compression stockings to assist with venous return and avoid dehydration. Would recommend frequent small meals rather than large meals in order to avoid splanchnic shunting. I advised the patient to lay on her left side rather than her right side to avoid IVC compression. Thank you very much for the opportunity to participate in the cardiac care of your patient. If the patient has normal LV size and function and normal pulmonary pressures, she may be discharged home and follow-up with Dr. Butler going forward. Thank you very much for the opportunity to participate in cardiac care of your patient. Consultation time took place between 730 and 8 AM. 2. UTI (urinary tract infection) (N39.0: Urinary tract infection, site not specified) 3. Hypokalemia (E87.6: Hypokalemia) Elevated troponin (R77.8: Other specified abnormalities of plasma proteins) Extracted from: Title:ED Note Author:Favian Ahumada DO Date: 1. Near syncope (R55: Syncop e and collapse) 2. UTI (urinary tract infection) (N39.0: Urinary tract infection, site not specified) 3. Hypokalemia (E87.6: Hypokalemia) Orders: Sodium Chloride 0.9% intravenous solution, 1,000 mL, Soln-IV, IV, Once, Stop date 10/18/22 14:19:00 EDT, STAT, Start date 10/18/22 14:19:00 EDT, Infuse over 61, minute(s) Acetaminophen Level Automated Diff Basic Metabolic Panel CBC w/ Auto Diff Drug Screen Urine ECG 12 Lead Adult Echo Transthoracic Complete ED Cardiac Monitoring ED Physician consult Hospitalist for continued care eGFR Extra SST Tube Oxygen Saturation Oxygen Therapy PT & PTT Salicylate Level Saline Lock Insert Troponin Troponin 0 Hr. Troponin 3 Hr. Troponin 6 Hr. Troponin 9 Hr. TSH With T4fr Reflex UA With Cult Reflex Urine Culture XR Chest Single View Extracted from: Title:Admission H & P Author:Jona Amaral MD Date:10/18/22 22-year-old female who is 25 -week presented with dizziness. Near syncope Chest x-ray, ECG unremarkable Mild tachycardia on admission with heart rate 100s. Troponin elevated at 47.10 Check TSH, orthostatics, echocardiogram Trend troponin Check ethanol, salicylate, acetaminophen, Urine toxicology Received 1 L normal saline bolus in ED and heart rate came down from 100s to 90s. Normal sinus at 75 cc/h Follow-up cardiology recommendations I assessed the patient in ED. Patient's boyfriend at bedside. Patient is not sick appearing. Hemodynamically stable UTI Abnormal UA and asymptomatic woman UA with 3+ bacteria, 16 25 WBCs, 1+ LE. Leukocytosis with WBCs 15.8 Start ceftriaxone Follow-up urine culture Dr. Mortensen performed US in ED Hypokalemia Potassium 3.3. Will replete potassium. Check magnesium Diet: Regular Code: Full code DVT prophylaxis: heparin This report was transcribed using voice recognition software. Every effort was made to ensure accuracy, however, inadvertently computerized rn radiology mistakes may be present. Dr. Jona Amaral Hospitalist Ordered: acetaminophen, 650 mg = 2 tab(s), Tab, Oral, q6hr PRN Pain, Routine, Start date 10/18/22 18:04:00 EDT, 10/18/22 18:04:00 EDT heparin, 5,000 unit(s) = 1 mL, Injection, SubCutaneous, BID for 30 day(s), Stop date 11/17/22 20:59:00 EDT, Routine, Start date 10/18/22 21:00:00 EDT, 10/18/22 18:04:00 EDT hydrALAZINE, 10 mg = 0.5 mL, Injection, IV Push, q6hr PRN Other (see comment), Routine, Start date 10/18/22 18:04:00 EDT, 10/18/22 18:04:00 EDT ondansetron, 4 mg = 2 mL, Injection, IV Push, q6hr PRN Nausea, Routine, Start date 10/18/22 18:04:00 EDT, 10/18/22 18:04:00 EDT Sodium Chloride 0.9% intravenous solution 1,000 mL, 1,000 mL, IV, 75 mL/hr, Routine, Start date 10/18/22 18:04:00 EDT, 13.3 hour(s), Total volume (mL): 1,000, 48 kg, 1.42, m2 Cardiac Monitoring Consult to Cardiology Notify Provider Vital Signs Notify Provider Vital Signs Orthostatic Vitals Signs Place in Status Pulse Oximetry Regular Diet Resuscitation Status - Full Vital Signs Weight Diagnostic Tests Pending * Cortisol 10/19/22 [facility]05-12-2023 NoteChief Complaint Dizziness Reason for Consultation Abnormal troponin, dizziness History of Present Illness Patient is a very pleasant 22-year-old female with 25-week gestation of , no previous pregnancies noted, no previous known coronary disease, CHF, or sudden cardiac in her family. Since this past Saturday the patient has had periodic episodes of positional lightheadedness and dizziness and felt as though she may pass out. She did not actually have a syncopal episode. She denies any associated chest pain, chest pressure, lower extremity edema, palpitations, or shortness of breath. When her symptoms did not improve, she sought medical attention at [facility] emergency room. In theemergency room her EKG was performed which showed normal sinus rhythm, normal axis, normal intervals. No acute changes. Her initial troponin was found to be slightly increased at 42, increased to 59 and is now trending downwards. At no time the patient have any anginal symptoms. The patient is in no acute distress, and has been trying to keep up with her fluids. Orthostatics are pending. Echocardiogram is pending. Review of Systems Constitutional: no fever, no sweats, no weakness Skin: no rash, no lesions, nobruising/petechiae ENMT: no sore throat, no congestion, no hoarseness Respiratory: no shortness of breath, no cough, no orthopnea, no wheezing Cardiovascular: no chest pain, no palpitations, no edema Gastrointestinal: no nausea, no vomiting, no diarrhea, no GI bleeding Genitourinary: no anuria/oliguria no hematuria Musculoskeletal: no back pain, no trauma Neurologic: no headache, no dizziness, no numbness, no weakness Psychiatric: no sleeping problems, no irritability, no anxiety/depression. Heme/Lymph: no bleeding tendency, no bruising tendency Allergy/Immunologic: no recurrent infections, no impaired immunity Additional ROS info: Except as noted in the above Review of Systems and in the History of Present Illness all other systems have been reviewed and are negative or noncontributory. Physical Exam Vitals & Measurements T: 36.8 ?C(Oral) TMIN: 36.8 ?C(Oral) TMAX: 37 ?C(Oral) HR: 103(Monitored) RR: 20 BP: 93/61 BP: 96/60(Standing) BP: 96/59(Supine) SpO2: 98% HT: 152.4 cm WT: 49.5 kg General: alert, no acute distress Skin: warm, dry intact Head: atraumatic, normocephalic Neck: Trachea midline, no JVD, no bruit Eye: normal conjunctiva, sclera clear ENMT: oral mucosa moist Cardiovascular: regular rate and rhythm, nomurmur normal peripheral perfusion Respiratory: Lungs CTA, respirations non labored Chest wall: no deformity. Gastrointestinal: soft, non distended, no tenderness, no guarding. Back: No tenderness, Normal ROM, Normal alignment. Extremities: no edema, no deformity, no trauma Neurological: oriented x 4, LOC appropriate for agesensation equal & normal bilaterally, speechnormal Psychiatric: cooperative, affect appropriate for age, normal judgement, normal psychiatric thoughts. Assessment/Plan 1. Near syncope (R55: Syncope and collapse) Patient presents with positional lightheadedness and dizziness mostly while standing, tachycardia, and hypotension. In addition the patient has had subtly abnormal troponins which may be secondary toher tachycardia. Patient has a small stature and has a small fetus. She is asymptomatic from a chest pain standpoint. TSH is normal. Orthostatics are pending. Would recommend we obtain a 2D echo withDoppler to evaluate her LV function and pulmonary pressures. It is unlikely the patient had a pulmonary embolism as she has no shortness of breath. Would recommend holding off on beta-bryanna therapyat this time given the relative hypotension. Recommend pushing the patient with p.o. fluids in order to maintain her fluid status. Would not recommend CTA of the chest for pulmonary embolism or VQ scan at this time. Would not recommend any additional cardiac testing other than echocardiogram. Patient may require compression stockings to assist with venous return and avoid dehydration. Would recommend frequent small meals rather than large meals in order to avoid splanchnic shunting. I advised the patient to lay on her left side rather than her right side to avoid IVC compression. Thank you very much for the opportunity to participate in the cardiac care of your patient. If the patient has normal LV size and function and normal pulmonary pressures, she may be discharged home and follow-up with Dr. Butler going forward. Thank you very much for the opportunity to participate in cardiac care of your patient. Consultation time took place between 730 and 8 AM. 2. UTI (urinary tract infection) (N39.0: Urinary tract infection, site not specified) 3. Hypokalemia (E87.6: Hypokalemia) Elevated troponin (R77.8: Other specified abnormalities of plasma proteins) Problem List/Past Medical History Ongoing BMI (body mass index), pediatric, less than 5th percentile for age Well child check Historical No q (more content not included)...[facility] Result Comment: Electronically Signed By: Isreal MOSS, Sahil Fuller\.rafael\Date and Time Signed: 10/19/22 10:01 [id number] Hospital Discharge instructions Patient Education 10/19/2022 09:40:44 Urinary Tract Infection, Adult Urinary Tract Infection, Adult A urinary tract infection (UTI) is an infection of any part of the urinary tract. The urinary tractincludes the kidneys, ureters, bladder, and urethra. These organs make, store, and get rid of urinein the body. An upper UTI affects the ureters and kidneys. A lower UTI affects the bladder and urethra. What are the causes? Most urinary tract infections are caused by bacteria in your genital area around your urethra, where urine leaves your body. These bacteria grow and cause inflammation of your urinary tract. What increases the risk? You are more likely to develop this condition if: You have a urinary catheter that stays in place. You are not able to control when you urinate or have a bowel movement (incontinence). You are female and you: ?Use a spermicide or diaphragm for control. ?Have low estrogen levels. ?Are . You have certain genes that increase your risk. You are sexually active. You take antibiotic medicines. You have a condition that causes your flow of urine to slow down, such as: ?An enlarged prostate, if you are male. ?Blockage in your urethra. ?A kidney stone. ?A nerve condition that affects your bladder control (neurogenic bladder). ?Not getting enough to drink, or not urinating often. You have certain medical conditions, such as: ?Diabetes. ?A weak disease-fighting system (immunesystem). ?Sickle cell disease. ?Gout. ?Spinal cord injury. What are the signs or symptoms? Symptoms of this condition include: Needing to urinate right away (urgency). Frequent urination. This may include small amounts of urine each time you urinate. Pain or burning with urination. Blood in the urine. Urine that smells bad or unusual. Trouble urinating. Cloudy urine. Vaginal discharge, if you are female. Pain in the abdomen or the lower back. You may also have: Vomiting or a decreased appetite. Confusion. Irritability or tiredness. A fever or chills. Diarrhea. The first symptom in older adults may be confusion. In some cases, they may not have any symptoms until the infection has worsened. How is this diagnosed? This condition is diagnosed based on your medical history and a physical exam. You may also have other tests, including: Urine tests. Blood tests. Tests for STIs (sexually transmitted infections). If you have had more than one UTI, a cystoscopy or imaging studies may be done to determine the cause of the infections. How is this treated? Treatment for this condition includes: Antibiotic medicine. Ixff-cvu-snhadvg medicines to treat discomfort. Drinking enough water to stay hydrated. If you have frequent infections or have other conditions such as a kidney stone, you may need to see a health care provider who specializes in the urinary tract (urologist). In rare cases, urinary tract infections can cause sepsis. Sepsis is a life- threatening condition that occurs when the body responds to an infection. Sepsis is treated in the hospital with IV antibiotics, fluids, and other medicines. Follow these instructions at home: Medicines Take plbx-vyn-gqtblso and prescription medicines only as told by your health care provider. If you were prescribed an antibiotic medicine, take it as told by your health care provider. Do notstop using the antibiotic even if you start to feel better. General instructions Make sure you: ?Empty your bladder often and completely. Do not hold urine for long periods of time. ?Empty your bladder after sex. ?Wipe from front to back after urinating or having a bowel movement if you are female. Use each tissue only one time when you wipe. Drink enough fluid to keep your urine pale yellow. Keep all follow-up visits. This is important. Contact a health care provider if: Your symptoms do not get better after 1 2 days. Your symptoms go away and then return. Get help right away if: You have severe pain in your back or your lower abdomen. You have a fever or chills. You have nausea or vomiting. Summary A urinary tract infection (UTI) is an infection of any part of the urinary tract, which includes the kidneys, ureters, bladder, and urethra. Most urinary tract infections are caused by bacteria in your genital area. Treatment for this condition often includes antibiotic medicines. If you were prescribed an antibiotic medicine, take it as told by your health care provider. Do notstop using the antibiotic even if you start to feel better. Keep all follow-up visits. This is important. This information is not intended to replace advice given to you by your health care provider. Make sure you discuss any questions you have with your health care provider. Document Revised: 01/06/2021 Document Reviewed: 01/06/2021 [employer] Patient Education 2022 [employer]. 10/19/2022 09:40:42 Near-Syncope, Otbs-pt-Rqbp Near-Syncope Near-syncope is when you suddenly feel like you might pass out or faint. This may also be called presyncope. During an episode of near-syncope, you may: Feel dizzy, weak, or light-headed. It may feel like the room is spinning. Feel like you may vomit (nauseous). See spots or see all white or all black. Have cold, clammy skin. Feel warm and sweaty. Hear ringing in your ears. This condition is caused by a sudden decrease in blood flow to the brain. This can result from manycauses, but most of those causes are not dangerous. However, near-syncope may be a sign of a serious medical problem, so it is important to seek medical care. Follow these instructions at home: Medicines Take iatf-pdg-pocrviq and prescription medicines only as told by your doctor. If you are taking blood pressure or heart medicine, get up slowly and spend many minutes getting ready to sit and then stand. This can help with dizziness. Lifestyle Do not drive, use machinery, or play sports until your doctor says it is okay. Do not drink alcohol. Do not smoke or use any products that contain nicotine or tobacco. If you need help quitting, ask your doctor. Avoid hot tubs and saunas. General instructions Be aware of any changes in your symptoms. Talk with your doctor about your symptoms. You may need to have testing to help find the cause. If you start to feel like you might pass out, sit or lie down right away. If sitting, lower your head down between your legs. If lying down, raise (elevate) your feet above the level of your heart. ?Breathe deeply and steadily. Wait until all of the symptoms are gone. ?Have someone stay with you until you feel better. Drink enough fluid to keep your pee (urine) pale yellow. Avoid standing for a long time. If you must stand for a long time, do movements such as: ?Moving your legs. ?Crossing your legs. ?Flexing and stretching your leg muscles. ?Squatting. Keep all follow-up visits. Contact a doctor if: You continue to have episodes of near fainting. Get help right away if: You pass out or faint. You have any of these symptoms: ?Fast or uneven heartbeats (palpitations). ?Pain in your chest, belly, or back. ?Shortness of breath. You have a seizure. You have a very bad headache. You are confused. You have trouble seeing. You are very weak. You have trouble walking. You are bleeding from your mouth or butt. You have black or tarry poop (stool). These symptoms may be an emergency. Get help right away. Call your local emergency services (911 int [place] Do not wait to see if the symptoms will go away. Do not drive yourself to the hospital. Summary Near-syncope is when you suddenly feel like you might pass out or faint. This condition is caused by a sudden decrease in blood flow to the brain. Near-syncope may be a sign of a serious medical problem, so it is important to seek medical care. If you start to feel like you might pass out, sit or lie down right away. If sitting, lower your head down between your legs. If lying down, raise (elevate) your feet above the level of your heart. Talk with your doctor about your symptoms. You may need to have testing to help find the cause. This information is not intended to replace advice given to you by your health care provider. Make sure you discuss any questions you have with your health care provider. Document Revised: 10/05/2021 Document Reviewed: 10/05/2021 [employer] Patient Education 2022 [employer]. Follow Up Care 10/18/2022 13:28:40 With:Isreal MOSS, Sahil Fuller Address: [address] [place] [phone] When:2 weeks With:Roslyn Valdes MD, [facility] Address: [phone] When:2 to 4 days [facility]05-11-2023 NoteChief Complaint pt reports being [address] limon. reports three days of dizziness. pt denies abd pain, vag discharge, n/v. History of Present Illness 22-year-old female who is 25-week presented with dizziness. Since last Saturday patient had an episode of dizziness. Since Saturday patient has been experiencing frequent episodes of dizziness. Patient does not have room spinning sensation. Patient mentioned she feels drunk and has lightheadedness at times. Patient mentioned to time she felt like she was going to pass out but episodes of syncope. No chest pain, palpitations, shortness of breath, numbness/tingling, focal motor weakness, aphasia, dysphagia, tinnitus, PND, orthopnea, peripheral edema, fever, chills, nausea, vomiting, diarrhea, melena, hematochezia, abdominal pain, sore throat, runny nose,sneezing, coughing, dysuria, increased/decreased urinary frequency, urinary urgency, vaginal dischar ge. No alcohol use, drug abuse. ED physician discussed case with station installer and repairer Dr. Butler and WET SANDER Dr. Mortensen. Telemetry monitoring and echocardiogram was recommended. Borderline elevation of troponin in ED with troponins 40s. Heart rate 100s on admission which came down to 90s after 1 L normal saline bolus. Review of Systems Constitutional: per HPI Respiratory: per HPI Cardiovascular: per HPI GI: per HPI : no dysuria, no increased urinary frequency Neuro/Behv: no LOC, no new focal deficits MSK: no stiffness Skin: no new rash Additional ROS info: Except as noted in the above Review of Systems and in the History of Present Illness all other systems have been reviewed and are negative or noncontributory Scoring Jeff Fall Risk Score: 15 (10/18/22) Physical Exam Vitals & Measurements T: 36.8 ?C(Oral) HR: 100(Monitored) RR: 14 BP: 101/70 SpO2: 99% HT: 152 cm WT: 48 kg General: alert, NAD HEENT: eyes show no evidence of icterus Cardiovascular: regular rate and rhythm, no S3/S4 Respiratory: Lungs CTABL, respirations non labored Abdomen: soft, non-tender, positive bowel sounds, no organomegaly, no guarding, no rigidity Psych: cooperative Extremities: no peripheral edema Neurological: speech normal, motor strength equal & normal bilaterally Lab Results WBC: 15.8 E9/L High (10/18/22 14:39:00) RBC: 4.2 E12/L Low (10/18/22 14:39:00) HGB: 12.5 gm/dL (10/18/22 14:39:00) Hct: 37.4 % (10/18/22 14:39:00) MCV: 89.7 fL (10/18/22 14:39:00) MCH: 30.1 pg (10/18/22 14:39:00) MCHC: 33.6 gm/dL (10/18/22 14:39:00) RDW: 13.8 % (10/18/22 14:39:00) Platelet: 146 E9/L Low (10/18/22 14:39:00) MPV: 9.2 fL (10/18/22 14:39:00) Neutro Auto: 79.4 % High (10/18/22 14:39:00) Lymph Auto: 11.2 % Low (10/18/22 14:39:00) Garza Auto: 8.3 % (10/18/22 14:39:00) Eos Auto: 0.5 % (10/18/22 14:39:00) Basophil Auto: 0.6 % (10/18/22 14:39:00) Neutro Absolute: 12.5 E9/L High (10/18/22 14:39:00) Lymph Absolute: 1.8 E9/L (10/18/22 14:39:00) Garza Absolute: 1.3 E9/L High (10/18/22 14:39:00) Eos Absolute: 0.1 E9/L (10/18/22 14:39:00) Basophil Absolute: 0.1 E9/L (10/18/22 14:39:00) PT: 10.8 second(s) (10/18/22 14:39:00) INR: 1 (10/18/22 14:39:00) PTT: 25.8 second(s) (10/18/22 14:39:00) Glucose Lvl: 97 mg/dL (10/18/22 14:39:00) BUN: 7 mg/dL (10/18/22 14:39:00) Creatinine: 0.5 mg/dL (10/18/22 14:39:00) eGFR: 138 mL/min/1.73 m2 (10/18/22 14:39:00) BUN/Creat Ratio: 14 (10/18/22 14:39:00) Sodium Lvl: 136 mmol/L (10/18/22 14:39:00) Potassium Lvl: 3.3 mmol/L Low (10/18/22 14:39:00) Chloride: 102 mmol/L (10/18/22 14:39:00) CO2: 26 mmol/L (10/18/22 14:39:00) AGAP: 11 mEq/L (10/18/22 14:39:00) Calcium Lvl: 8.7 mg/dL Low (10/18/22 14:39:00) Troponin: 49.6 pg/mL Critical (10/18/22 17:41:00) UA Spec Desc: Clean Catch (10/18/22 13:37:00) UA Color: Yellow2 (10/18/22 13:37:00) UA Clarity: Slightly Cloudy3 Abnormal (10/18/22 13:37:00) UA Spec Grav: 1.015 (10/18/22 13:37:00) UA pH: 6.5 (10/18/22 13:37:00) UA Protein: NEGATIVE1 (10/18/22 13:37:00) UA Glucose: NEGATIVE1 (10/18/22 13:37:00) UA Ketones: NEGATIVE1 (10/18/22 13:37:00) UA Bili: NEGATIVE1 (10/18/22 13:37:00) UA Blood: NEGATIVE1 (10/18/22 13:37:00) UA Nitrite: NEGATIVE1 (10/18/22 13:37:00) UA Urobilinogen: 0.2 (10/18/22 13:37:00) UA Leuk Est: 1+ Abnormal (10/18/22 13:37:00) UA RBC: 4-20 (10/18/22 13:37:00) UA Squam Epithelial: >10 (10/18/22 13:37:00) UA WBC: 16-25 Abnormal (10/18/22 13:37:00) UA Bacteria: 2+ Abnormal (10/18/22 13:37:00) Assessment/Plan 22-year-old female who is 25-week presented with dizziness. Near syncope Chest x-ray, ECG unremarkable Mild tachycardia on admission with heart rate 100s. Troponin elevated at 47.10 Check TSH, orthostatics, echocardiogram Trend troponin Check ethanol, salicylate, acetaminophen, Urine toxicology Received 1 L normal saline bolus in ED and heart rate came down from 100s to 90s. Normal sinus at 75 cc/h Follow-up cardiology recommendations I assessed the patient i (more content not included)...[facility]Result Comment: Electronically Signed By: Cristin MOSS, Jona Rivera\.br\Date and Time Signed: 10/18/22 19:03 EDTHospital course Narrative No data available for this section [facility] No data available for this section [facility] No data available for this section [facility] Summary Purpose Family History No Family History Records FoundNo Family History Records Found No data available for this section No data available for this section No Family History Records Found Advance Directives No Advanced Directives Records FoundNo Advanced Directives Records FoundNo Advanced Directives Records Found Additional Source Comments INFORMATION SOURCE (unrecogn ized section and content) DATE CREATED AUTHOR 10/13/2022 [facility] DATE CREATED AUTHOR AUTHOR'S ORGANIZ ATION 01/24/2023 [facility] DATE CREATED AUTHOR AUTHOR'S ORGANIZ ATION 12/29/2023 [facility] Patient Care team informatio n (unrecognized section and content) Personnel Name: Roslyn Valdes MD Address: Address: [address] [place] [address] Personnel Name: Roslyn Valdes MD Address: Address: [address] [place] [address] Personnel Name: Roslyn Valdes MD Address: Address: [address] [place] [address] FOR RECORDS PERTAINING TO PATIENTS WHO ARE OR HAVE BEEN ENROLLED IN A CHEMICAL DEPENDENCY/SUBSTANCEABUSE PROGRAM, SOME INFORMATION MAY BE OMITTED. This clinical summary was aggregated from multiple sources. Caution should be exercised in using it in the provision of clinical care. This summary normalizes information from multiple sources, and as a consequence, information in this document may materially change the coding, format and clinical context of patient data. In addition, data may be omitted in some cases. CLINICAL DECISIONS SHOULD BE BASED ON THE PRIMARY CLINICAL RECORDS. [facility] [employer] provides no warranty or guarantee of the accuracy or completeness of information in this document.
[2024-01-22 14:07] LABS: Basophils Percent Auto 0.5 % (0.2-2.0); Hematocrit 40.3 % (36.0-48.0); Hemoglobin 13.1 g/dL (12.0-16.0); Immature Granulocytes Abs Auto 0.16 10^3/uL (0.00-0.03); Lymphocytes Absolute Auto 1.1 10^3/uL (1.2-3.8); Lymphocytes Percent Auto 13.6 % (20.5-60.0); Mean Corpuscular HGB Conc 32.5 g/dL (29.9-35.2); Mean Corpuscular Hemoglobin 28.2 pg (26.7-34.0); Mean Corpuscular Volume 86.9 fL (81.0-99.0); Mean Platelet Volume 10.5 fL (9.5-13.5); Monocytes Percent Auto 12.8 % (1.7-12.0); Neutrophils Absolute Auto 5.6 10^3/uL (1.4-6.5); Neutrophils Percent Auto 71.1 % (43.0-75.0); Platelet Count 168 10^3/uL (150-450); Red Blood Count 4.64 10^6/uL (4.20-5.40); Red Cell Distribution Width 13.3 % (11.0-15.0); White Blood Count 7.9 10^3/uL (4.0-11.0)
[2024-01-22 14:41] LABS: Glucose 1 Hour 132 mg/dL (<130)
[2024-01-22 16:12] LABS: Estimated Average Glucose 91 mg/dL; Glycohemoglobin A1C 4.8 % (4.5-6.2)
[2024-01-23 06:10] LABS: HBsAg Screen Negative (Negative); HCV Ab Non Reactive (Non Reactive); HIV Ab/p24 Ag Screen Non Reactive (Non Reactive)
[2024-01-23 13:09] LABS: Rapid Plasma Reagin, Quant Non Reactive titer (NonRea<1:1)
== END 2024-01-22 12:20 | disposition home or self-care (01) ==
LOC: LAB 12:22
PROVIDERS: Visit Provider Obstetrics & Gynecology
DX: N92.6 Irregular menstruation, unspecified (principal); Z13.1 Encounter for screening for diabetes mellitus
CPT/HCPCS: 36415; 82950; 83036; 85025; 86592; 86762; 86803; 86850; 86900; 86901; 87086; 87340; 87389

== ENCOUNTER 2024-02-05 07:27 | Outpatient (RCR) | payer SELFPAY ==
[2024-02-05 12:20] VITALS: BP 105/69; PULSE 85; TEMP 36.6; O2SAT 99
[2024-02-05] MEDS: RHO(D) IMMUNE GLOBULIN 1,500 UNIT SYRINGE 1500 UNIT IM (12:25)
--- NOTE | 2024-02-05 13:07 | PC.NURSE ---
1220: Pt. to [facility] amb. for Rhogam injection. Seated in chair. VSS. Denies questions about med. due to past history of administration and relays no reaction or allergy to med. Blood type verified. Water offered. 1225: Medicated with Rhophylac as ordered IM to left deltoid. Pt. c/o pain with injection.No bleeding to site. 1235: D/c'd amb. to home.
== END 2024-02-08 23:59 | disposition home or self-care (01) ==
LOC: INF 07:27
PROVIDERS: Visit Provider Obstetrics & Gynecology
DX: O26.893 Other specified pregnancy related conditions, third trimester (principal); Z67.91 Unspecified blood type, Rh negative; Z3A.00 Weeks of gestation of pregnancy not specified
CPT/HCPCS: 96372; J2791

== ENCOUNTER 2024-02-20 10:25 | Outpatient (OUT) | payer BC, SELFPAY ==
--- NOTE | 2024-02-20 10:27 | US_ITS ---
[address] [address] Patient Name: SIDNEY CANDELARIO MRN: [id number] date: 2000 Sex: F Assigned Patient Location: [facility] Current Patient Location: [facility] Accession/Order Number: [id number] Exam Date: 02/20/2024 10:28 Report Date: 02/20/2024 11:39 At the request of: MAGDA MCKENNA Procedure: US OB growth EXAMINATION: US OB growth HISTORY: SMALL FOR GESTATIONAL AGE COMPARISON: No relevant comparison available. FINDINGS: Heart Rate: 145 bpm Amniotic Fluid Volume: 14.5 cm, largest fluid pocket 5.3 cm Number: 1 Position: Cephalic presentation, longitudinal lie BIOMETRY: BPD: 7.46 cm; 29 weeks 6 days; <3 % HC: 29.11 cm; 32 weeks 1 day; 11.50 % AC: 27.90 cm; 32 weeks 0 days; 38.90 % FL: 6.21 cm; 32 weeks 1 day; 34.20 % EFW: 1666.62 g; 26.50 % #4 lbs. 1 oz. FL/AC: 22.26 FL/BPD: 83.24 HC/AC: 1.04 GESTATIONAL AGE: Age by EDC: 32 weeks 2 days SAMIR by EDC: 2024-04-14 Age by US: 31 weeks 4 days SAMIR by US: 2024-04-19 US/US OB growth IMPRESSION: BPD less than the 3rd percentile Estimated weight at the 27th percentile Electronically authenticated by: ANEL GIBBONS Date: 02/20/2024 11:39
--- OUTSIDE RECORDS SUMMARY | 2024-02-20 10:45 | XMS_ITS | CCD ---
Author Organization [facility] Care Team Providers Care Carton Filling Machine Operator Name Role Phone BALA ., DR MAN [...] Admitting Unavailable DARCI ., KRISTINE Attending Unavailable ZIPARADISEER, DR CAMELIA Isabel Consulting Unavailable DARCI ., KRISTINE Consulting Unavailable BALA ., DR MAN Admitting Unavailable BALA ., DR MAN Attending Unavailable BALA ., DR MAN Consulting Unavailable ZIEBER, DR CAMELIA Isabel Consulting Unavailable Keisha, Roslyn Primary Care Physician [phone] Sahil BUTLER Consulting Unavailable Jona Amaral Admitting Unavailable Jona Amaral Attending Unavailable Sahil BUTLER Consulting Unavailable Sahil BUTLER Consulting Unavailable Roslyn Valdes Admitting Unavailable Esperanza SONG Attending Unavailable MAGDA LIMON Attending Unavailable DARCI, KRISTINE Attending Unavailable BALAMAGDA HOWELL Attending Unavailable BALA, MAGDA Attending Unavailable DARCI, KRISTINE Attending Unavailable BALAMAGDA Attending Unavailable Medications Current Medications Medication Drug Class(es) Dates Sig (Normalized) Sig (Original) cephalexin 500 mg oral capsule (1 source) Cephalosporin Antibacterial Start: 10-19-2022 End: 10-23-2022 take 1 capsule by mouth every six hours Keflex 500 mg Cap 500 mg = 1 cap(s), Oral, q6hr, X 4 day(s), # 16 cap(s), Refills(s) 0, Pharmacy: [facility], 152, cm, 10/18/22 13:33:00 EDT, Height/Length Dosing, 48, kg, 10/18/22 13:33:00 EDT, Weight Dosing Start Date: 10/19/22 [...] Range Facility Nursing Assessmenton 023 Nursing Assessment [id number] #1.00CD:127 [facility] Discharge Instructionson Discharge Instructions [id number] #1.00CD:127 [facility] C Urineon 10-20-2022 Bacteria identified Cx [...] Locations R1: This test was performed at: [facility], [address] [place] [address], [facility] , , [facility] Comment on above: Performed By: #### 2 885644, 9344637, [id number] ####[facility] [address] [place], [place] [address] Cortisolon 10-20-2022 Cortisol [Mass/Vol] 18.4 microgram/dL Invalid Interpretation Code 6.2-19.4 [facility] Comment on above: Result Comment: Yudith jeter Note: The reference interval and flagging for this test is for an AM collection. If this is a PM collection please use: Cortisol PM: 2.3-11.9 Performed at: [facility] [address] [id number] PhD Buck Montes Performed By: #### 2 829657 #### [facility] [address] [place], [place] [address] Auto Diffon 10-19-2022 Basophils/100 WBC (Bld) 0.4 % Normal 0.0-2.0 [facility] Comment on above: Order Comment: Order Added by Discern Expert. Performed By: #### 2 683449 #### [facility] [address] [place] [address] Basophils/Leukocytes Auto (Bld) [Pure # fraction] 0.1 E9/L Normal 0.0-0.2 [facility] Comment on above: Order Comment: Order Added by Discern Expert. Performed By: #### 2 778350 #### [facility] [address] [place] [address] Eosinophils/100 WBC (Bld) 0.6 % Normal 0.0-8.0 [facility] Comment on above: Order Comment: Order Added by Discern Expert. Performed By: #### 2 074690 #### [facility] [address] [place] [address] Eosinophils/Leukocytes Auto (Bld) [Pure # fraction] 0.1 E9/L Normal 0.0-0.5 [facility] Comment on above: Order Comment: Order Added by Discern Expert. Performed By: #### 2 555434 #### [facility] [address] [place] [address] Lymphocytes/100 WBC (Bld) 12.3 % Low 14.0-50.0 [facility] Comment on above: Order Comment: Order Added by Discern Expert. Performed By: #### 2 434452 #### [facility] [address] [place] [address] Lymphocytes/Leukocytes Auto (Bld) [Pure # fraction] 2.0 E9/L Normal 1.0-4.0 [facility] Comment on above: Order Comment: Order Added by Discern Expert. Performed By: #### 2 389796 #### [facility] [address] [place] [address] Monocytes/100 WBC (Bld) 8.5 % Normal 4.0-14.0 [facility] Comment on above: Order Comment: Order Added by Discern Expert. Performed By: #### 2 441695 #### [facility] [address] [place] [address] Monocytes/Leukocytes Auto (Bld) [Pure # fraction] 1.4 E9/L High 0.2-1.0 [facility] Comment on above: Order Comment: Order Added by Discern Expert. Performed By: #### 2 098228 #### [facility] [address] [place] [address] Neutrophils/100 WBC (Bld) 78.2 % High 36.0-75.0 [facility] Comment on above: Order Comment: Order Added by Discern Expert. Performed By: #### 2 752893 #### [facility] [address] [place] [address] Neutrophils/Leukocytes Auto (Bld) [Pure # fraction] 12.7 E9/L High 2.0-7.5 [facility] Comment on above: Order Comment: Order Added by Discern Expert. Performed By: #### 2 136587 #### [facility] [address] [place] [address] BMPon 10-19-2022 Anion gap [Moles/Vol] 10 mmol/L Normal 6-16 [facility] Comment on above: Performed By: #### 2 409517 #### [facility] [address] [place] [address] Calcium [Mass/Vol] 8.0 mg/dL Low 8.9-11.1 [facility] Comment on above: Performed By: #### 2 666480 #### [facility] [address] [place] [address] Chloride [Moles/Vol] 106 mmol/L Normal 101-111 [place] Comment on above: Performed By: #### 2 831885 #### [facility] [address] [place] [address] CO2 [Moles/Vol] 23 mmol/L Normal 21-31 [facility] Comment on above: Performed By: #### 2 484334 #### [facility] [address] [place] [address] Creatinine [Mass/Vol] 0.5 mg/dL Normal 0.5-1.3 [facility] Comment on above: Performed By: #### 2 019318 #### [facility] [address] [place] [address] Glucose [Mass/Vol] 82 mg/dL Normal 55-199 [facility] Comment on above: Result Comment: If t his glucose result represents a fasting glucose, interpretation should refer to the following reference range: 55-99 mg/dL Performed By: #### 2 656238 #### [facility] [address] [place] [address] Potassium [Moles/Vol] 3.6 mmol/L Normal 3.5-5.3 [facility] Comment on above: Performed By: #### 2 731470 #### [facility] [address] [place] [address] Sodium [Moles/Vol] 135 mmol/L Normal 135-145 [facility] Comment on above: Performed By: #### 2 080270 #### [facility] [address] [place] [address] Urea nitrogen [Mass/Vol] 5 mg/dL Normal 5-21 [facility] Comment on above: Performed By: #### 2 855241 #### [facility] [address] [place] [address] Urea nitrogen/Creatinine [Mass ratio] 10 No Units Normal 10-20 [facility] Comment on above: Performed By: #### 2 453340 #### [facility] [address] [place] [address] CBC w/ Auto Diffon 3 Erythrocyte distribution width (RBC) [Ratio] 13.6 % Normal 10.9-14.2 [facility] Comment on above: Performed By: #### 2 473080 #### [facility] [address] [place] [address] Hematocrit (Bld) [Volume fraction] 34.1 % Normal 34.0-46.0 [facility] Comment on above: Performed By: #### 2 183951 #### [facility] [address] [place] [address] Hemoglobin (Bld) [Mass/Vol] 11.3 g/dL Low 12.0-16.0 [facility] Comment on above: Performed By: #### 2 219215 #### [facility] [address] [place] [address] MCH (RBC) [Entitic mass] 30.3 pg Normal 27.0-34.0 [facility] Comment on above: Performed By: #### 2 888270 #### [facility] [address] [place] [address] MCHC (RBC) [Mass/Vol] 33.2 g/dL Normal 31.4-36.0 [facility] Comment on above: Performed By: #### 2 920571 #### [facility] [address] [place] [address] MCV (RBC) [Entitic vol] 91.3 fL Normal 80.0-100.0 [facility] Comment on above: Performed By: #### 2 598622 #### [facility] [address] [place] [address] Platelet mean volume (Bld) [Entitic vol] 8.9 fL Normal 6.4-10.8 [facility] Comment on above: Performed By: #### 2 309179 #### [facility] [address] [place] [address] Platelets (Bld) [#/Vol] 146.0 E9/L Low 150.0-500.0 [facility] Comment on above: Performed By: #### 2 474903 #### [facility] [address] [place] [address] RBC (Bld) [#/Vol] 3.7 E12/L Low 4.3-5.9 [facility] Comment on above: Performed By: #### 2 002018 #### [facility] [address] [place] [address] WBC corrected for nucl RBC Auto (Bld) [#/Vol] 16.3 E9/L High 4.0-11.0 [facility] Comment on above: Performed By: #### 2 157092 #### [facility] [address] [place] [address] CHEMISTRYOrdered By: SYSTEM SYSTEM on 10-19-2022 Anion gap [Moles/Vol] 10 mmol/L Normal 6 - 16 mEq/L F C Remisol Calcium [Mass/Vol] 8.0 mg/dL Low 8.9 [...] Pending Diagnostic Test Results None [facility] App[facility]ments after Discharge Follow Up with Isreal MOSS, Sahil Fuller When: Within 2 weeks Where: [address] [place] [phone] Follow Up with Roslyn Valdes MD, [facility], MED When: Within 2 to 4 days Where: [phone] Medications What How Much When Instructions Next Dose New cephalexin (Keflex 500 mg Cap) 1 Capsules By Mouth Every 6 hours Duration: 4 Days Pickup at [facility] Pharmacy Information [facility]: [address] [place], [place] [phone] What How Much When Comments Stop Taking [...] condition include: (more content not included)... Normal [facility] ED Clinical Summaryon 2022 ED Clinical Summary [place] [address] ED Clinical Summary Person Information Name: SIDNEY CANDELARIO/[facility] Age: 22 Years : 2000 Sex: Female Language: Singaporean PCP: Roslyn Valdes MD Marital Status: Visit [...] 22:10:25 10/18/2022 22:10:25 10/18/2022 22:10:25 ADDRESS: [address] [place] [phone] PHYS DOC NOTES: MEDICAL INFORMATION: Prescriptions Given: Medications to Continue with No Changes Other Medications ibuprofen (ibuprofen 400 mg Tab) 1 Tablets By Mouth every 6 hours as needed for pain. Refills: 0. PATIENT EDUCATION INFORMATION: Instructions: Follow up: DIAGNOSIS: 1:Near syncope; 2:UTI (urinary tract infection); 3:Hypokalemia; Elevated troponin Normal [facility] ED Patient Education Noteon 10-19-2022 ED Patient Education Note Normal [facility] ED Patient Summaryon 023 ED Patient Summary [address] [address] Patient Discharge Instructions Person Information Name: SIDNEY CANDELARIO Age: 22 Years Arrival Date: 10/18/2022 13:27:27 Discharge Diagnosis: 1:Near syncope; 2:UTI (urinary tract infection); 3:Hypokalemia; Elevated troponin Primary Care Physician: Roslyn Valdes MD Provider Information Primary Provider: Favian Ahumada DO Advanced Diesel Locomotive Engineer:None The exam and treatment you received in the Emergency Department were for an urgent problem and are not intended as complete care. It is important that you follow up with a doctor, nurse practitioner, or physician?s talent acquisition assistant for ongoing care. If your symptoms become [...] opioids can be used to help relieve wgikmbjn-mx-ueaelu pain and are often prescribed following a [...] be struggling with addiction, tell your health care team coordinator scheduler and ask for guidance or call [facility]?S National Helpline at 1-991-718-JNRT. m Source: [place] Department of Health and Human Services/Center for Disease Control & Prevention [facility] (more content not included)... Normal [facility] HEMATOLOGYOrdered By: SYSTEM SYSTEM on 10-19-2022 [...] Inpatient Clinical Summaryon 10-19-2022 Inpatient Clinical Summary [place] [address] Clinical Summary Person Information: Name: SIDNEY CANDELARIO Age: 22 Years : 2000 Sex: Female PCP: Roslyn Valdes MD Marital Status: Race: White Ethnicity: Non- or Language: Singaporean Visit Id: Visit Reason: Dizziness; UTI, NEAR SYNCOPE, HYPOKALEMIA Speciality: Acuity: Enc Type: Observation Med Service: Medical Arrival: 10/18/2022 13:27:27 Discharge: Dispo Type: Address: [address] [place] [phone] Provider Notes: Diagnosis: 1:Near syncope; 2:UTI (urinary [...] up: With: Address: When: Roslyn Valdes MD, [facility] [phone] Within 2 to 4 days Patient Education Information: [facility] Inpatient Patient Summaryon 10-19-2022 Inpatient Patient Summary [address] [address] Patient Discharge Instructions PERSON INFORMATION Name: SIDNEY CANDELARIO Date of : 2000 Current Date: 10/19/2022 09:40:25 PHYSICIANS Admitting Physician: Jona Amaral MD Primary Care Physician: Roslyn Valdes MD PCP Phone Number: [phone] Comment: Discharge Diagnosis: 1:Near syncope; 2:UTI (urinary [...] up: With: Address: When: Roslyn Valdes MD, [facility], [facility] [phone] Within 2 to 4 days In the [...] needed for pain. Refills: 0. [facility]: PATIENT EDUCATION INFORMATION Instructions: Medication Leaflets: You may receive a survey from [employer] asking you to rate your care experience. Your feedback is important and will help us understand what we do well and how we can improve the quality of care we provide to you, your loved ones and our community. It?s an honor to serve you. Thank you for choosing [facility] Normal [facility] Interdisciplinary Note - Christ e Manageron 10-19-2022 Interdisciplinary Note - Hot Water Heater Installer Pt is awake and alert in bed, previously rounded with Dr. Amaral. Spouse at bedside, Pt is aware of plan for scan today and plan to DC home later today. Declines any concerns or DC needs. Observation status reviewed. PCP verified and insurance information reviewed and DME discussed. Contact information provided and white board updated. Normal [facility] Comment on above: Result Comment: Elec tronically Signed By: Heraclio GRAFF, Sayda\.br\Date and Time Signed: 10/19/22 11:06 EDT Magnesiumon 10-19-2022 Magnesium [Mass/Vol] 1.7 mg/dL Normal 1.3-2.4 [facility] Comment on above: Performed By: #### 2 434275 #### [facility] [address] [place] [address] Monitor Recordon 10-19-2022 Monitor Record [id number]#1.00CD:127 Normal [facility] Monitor Record [id number]#1.00CD:127 Normal [facility] Monitor Record [id number]#1.00CD:127 Normal [facility] Monitor Record [id number]#1.00CD:127 Normal [facility] Patient Education - Texton 0 10-19-2022 [...] these instructions at home: Medicines ? Take owom-njv-ifoilkh and prescription medicines only as told by [...] provider. Document Revised: 10/05/2021 Document Reviewed: 10/05/2021 [employer] Patient Education ? 2022 The 517 travel. Obstetrics and Gynecology Urinary Tract Infection, Adult [...] (neurogenic bladder). (more content not included)... Normal [facility] Phosphoruson 10-19-2022 Phosphate [Mass/Vol] 3.8 mg/dL Normal 1.9-4.6 [facility] Comment on above: Performed By: #### 2 890707 #### [facility] [address] [place] [address] Progress Note-Physicianon Progress Note-Physician Basic Informatio n [...] drug abuse. 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 Butler and FIELD ARTILLERY FIRE CONTROL MAN Dr. Mortensen. Telemetry monitoring and echocardiogram was [...] made to ensure accuracy, however, inadvertently computerized wildlife policy professional mistakes may be present. Dr. Jona Mullener Hospitalist Subjective No major overnight events. No [...] Lymph Auto: 12.3 % Low (10/19/22 05:47:00) [place] Auto: 8.5 % (10/19/22 05:47:00) Eos Auto: 0.6 % (10/19/22 05:47:00) Basophil Auto: 0.4 % (10/19/22 05:47:00) Neutro Absolute: 12.7 E9/L High (10/19/22 05:47:00) Lymph Absolute: 2 E9/L (10/19/22 05:47:00) [place] Absolute: 1.4 E9/L High (10/19/22 05:47:00) Eos [...] 05:47:00) Magnesium (more content not included)... Normal [facility] Comment on above: Result Comment: Elec tronically Signed By: Cristin MOSS, Jona Rivera\.br\Date and Time Signed: 10/19/22 12:08 EDT Troponin 9 Hr.on 10-19-2022 Troponin I.cardiac [Mass/Vol] 48.10 pg/mL Abnormal 10.10-27.10 [facility] Comment on above: Order Comment: pt is not discharged despite the discharge status. pt is in room 302; third shift phleb was notified not to cancel pending orders. [id number] 10/18/2022 22:15:32 EDT Result Comment: Crit ical [...] Sensitivity Troponin I Instructions For Use, Carina CureVac, January 2018) Performed By: #### 1 [id number] #### [facility] [address] [place] [address] eGFRon 10-19-2022 GFR/1.73 sq M.predicted among non-blacks MDRD (S/P/Bld) [Vol rate/Area] 138 mL/min/1.73 m2 Normal >=59 [facility] Comment on above: Order Comment: Order added by Discern Expert. Result Comment: Script Developer sydnie kidney disease could be indicated at eGFR's of less than 60 mL/min/1.73m2. Kidney failure is indicated at less than 15 mL/min/1.73m2. Performed By: #### 2 041921 #### [facility] [address] [place] [address] Acetamnphn Lvlon 10-18-2022 Acetaminophen [Mass/Vol] ug/mL Low 15-30 [facility] Comment on above: Performed By: #### 1 9587410, 7907381, 5711976, 93497097, 8572231, 45934618, 14027888, 1566486, 6911795 ####[facility] [address] [place] [address] Auto Diffon 10-18-2022 Basophils/100 WBC (Bld) 0.6 % Normal 0.0-2.0 [facility] Comment on above: Order Comment: Order Added by Discern Expert. Performed By: #### 1 2282929, 6455374, 1908726, 04836492, 7774728, 26432275, 69023768, 5586409, 5912439 ####[facility] [address] [place] [address] Basophils/Leukocytes Auto (Bld) [Pure # fraction] 0.1 E9/L Normal 0.0-0.2 [facility] Comment on above: Order Comment: Order Added by Discern Expert. Performed By: #### 1 7738453, 0482660, 7373984, 59420942, 3315310, 34290015, 73503314, 1957799, 9681149 ####[facility] [address] [place] [address] Eosinophils/100 WBC (Bld) 0.5 % Normal 0.0-8.0 [facility] Comment on above: Order Comment: Order Added by Discern Expert. Performed By: #### 1 4454294, 7658312, 6617855, 11351191, 4794603, 09197452, 90147621, 5559913, 2444333 ####[facility] [address] [place] [address] Eosinophils/Leukocytes Auto (Bld) [Pure # fraction] 0.1 E9/L Normal 0.0-0.5 [facility] Comment on above: Order Comment: Order Added by Discern Expert. Performed By: #### 1 6036968, 7574683, 0417720, 65121978, 4871650, 22463886, 27058250, 1377042, 4190537 ####[facility] [address] [place] [address] Lymphocytes/100 WBC (Bld) 11.2 % Low 14.0-50.0 [facility] Comment on above: Order Comment: Order Added by Discern Expert. Performed By: #### 1 8960098, 8626370, 1188429, 34590995, 6942419, 06482013, 69216782, 1704337, 7274336 ####[place] [address] [place] [address] Lymphocytes/Leukocytes Auto (Bld) [Pure # fraction] 1.8 E9/L Normal 1.0-4.0 [facility] Comment on above: Order Comment: Order Added by Discern Expert. Performed By: #### 1 5647460, 0536020, 3469030, 37012788, 6023853, 60543074, 79837144, 9058587, 5523455 ####[place] [address] [place] [address] Monocytes/100 WBC (Bld) 8.3 % Normal 4.0-14.0 [facility] Comment on above: Order Comment: Order Added by Discern Expert. Performed By: #### 1 0858919, 6731096, 9508753, 30399689, 1843495, 63267249, 92365823, 8869346, 0182834 ####[place] [address] [place] [address] Monocytes/Leukocytes Auto (Bld) [Pure # fraction] 1.3 E9/L High 0.2-1.0 [facility] Comment on above: Order Comment: Order Added by Discern Expert. Performed By: #### 1 2881435, 8505305, 4448153, 11288895, 8376188, 39505329, 84174444, 6539015, 6812994 ####[facility] [address] [place] [address] Neutrophils/100 WBC (Bld) 79.4 % High 36.0-75.0 [facility] Comment on above: Order Comment: Order Added by Discern Expert. Performed By: #### 1 3121320, 2374849, 9235936, 16129276, 1513942, 66601588, 31800841, 8454723, 3588928 ####[facility] [address] [place] [address] Neutrophils/Leukocytes Auto (Bld) [Pure # fraction] 12.5 E9/L High 2.0-7.5 [facility] Comment on above: Order Comment: Order Added by Discern Expert. Performed By: #### 1 7955966, 6624692, 0070012, 67086944, 6356980, 80956073, 71904208, 6178540, 7324531 ####[facility] [address] [place] [address] BMPon 10-18-2022 Creatinine [Mass/Vol] 0.5 mg/dL Normal 0.5-1.3 [facility] Comment on above: Performed By: #### 1 8257777, 5394265, 9909658, 92887867, 6603803, 98599070, 76986610, 5158626, 8240619 #### [facility] [address] [place] [address] Urea nitrogen [Mass/Vol] 7 mg/dL Normal 5-21 [facility] Comment on above: Performed By: #### 1 5103151, 4814941, 9936399, 05715443, 4903043, 15906883, 28140917, 1370819, 8982545 #### [facility] [address] [place] [address] Urea nitrogen/Creatinine [Mass ratio] 14 No Units Normal 10-20 [facility] Comment on above: Performed By: #### 1 6443778, 1597552, 7352726, 53334531, 1366360, 71306969, 40421175, 7002399, 6211119 #### [facility] [address] [place] [address] Anion gap [Moles/Vol] 11 mmol/L Normal 6-16 [facility] Comment on above: Performed By: #### 1 4786586, 2680143, 6975681, 39881274, 6498795, 70271498, 15032907, 1719374, 2867002 #### [facility] [address] [place] [address] Calcium [Mass/Vol] 8.7 mg/dL Low 8.9-11.1 [facility] Comment on above: Performed By: #### 1 1111419, 4849292, 7491155, 12393220, 6259223, 93689997, 92954365, 5025947, 7797675 #### [facility] [address] [place] [address] Chloride [Moles/Vol] 102 mmol/L Normal 101-111 [place] Comment on above: Performed By: #### 1 4464930, 6106074, 7834997, 80276087, 3928629, 46298045, 22596354, 3383305, 3144410 #### [facility] [address] [place] [address] CO2 [Moles/Vol] 26 mmol/L Normal 21-31 [facility] Comment on above: Performed By: #### 1 5588415, 9337165, 5856882, 88256440, 3724161, 43796812, 96306959, 8439689, 9622565 #### [facility] [address] [place] [address] Glucose [Mass/Vol] 97 mg/dL Normal 55-199 [facility] Comment on above: Result Comment: If t his glucose result represents a fasting glucose, interpretation should refer to the following reference range: 55-99 mg/dL Performed By: #### 1 2918870, 0713151, 0342053, 34290945, 1681268, 67716908, 89815054, 5714005, 4033311 #### [facility] [address] [place] [address] Potassium [Moles/Vol] 3.3 mmol/L Low 3.5-5.3 [facility] Comment on above: Performed By: #### 1 6518476, 7569064, 3418681, 71545133, 3495653, 27512246, 80582281, 6213454, 8289624 #### [facility] [address] [place] [address] Sodium [Moles/Vol] 136 mmol/L Normal 135-145 [facility] Comment on above: Performed By: #### 1 2501991, 2086315, 6928434, 36329853, 9026396, 44688870, 55592899, 2025995, 9209022 #### [facility] [address] [place], [place] [address] CBC w/ Auto Diffon 3 Erythrocyte distribution width (RBC) [Ratio] 13.8 % Normal 10.9-14.2 [facility] Comment on above: Performed By: #### 1 2230640, 7727315, 3261978, 49923827, 7085486, 19715811, 86718535, 0202576, 8382727 #### [facility] [address] [place] [address] Hematocrit (Bld) [Volume fraction] 37.4 % Normal 34.0-46.0 [facility] Comment on above: Performed By: #### 1 6097028, 3412530, 8258991, 96889716, 5945604, 74140913, 30787550, 4558867, 5369974 #### [facility] [address] [place] [address] Hemoglobin (Bld) [Mass/Vol] 12.5 g/dL Normal 12.0-16.0 [facility] Comment on above: Performed By: #### 1 7464569, 4945194, 2287794, 13230693, 6594488, 09289602, 18937175, 3132624, 0386680 #### [facility] [address] [place] [address] MCH (RBC) [Entitic mass] 30.1 pg Normal 27.0-34.0 [facility] Comment on above: Performed By: #### 1 5140124, 9081148, 2391611, 94381519, 3501728, 84058810, 92336090, 6323823, 5451985 #### [facility] [address] [place], [place] [address] MCHC (RBC) [Mass/Vol] 33.6 g/dL Normal 31.4-36.0 [facility] Comment on above: Performed By: #### 1 [id number], 8706771, 9180399, 56221894, 7303867, 98898927, 49312359, 1882341, 5278872 #### [facility] [address] [place], [place] [address] MCV (RBC) [Entitic vol] 89.7 fL Normal 80.0-100.0 F [facility] Comment on above: Performed By: #### 1 5425951, 6311392, 0763422, 51836906, 9265799, 46493534, 16164800, 8382517, 0442516 #### [facility] [address] [place], [place] [address] Platelet mean volume (Bld) [Entitic vol] 9.2 fL Normal 6.4-10.8 [facility] Comment on above: Performed By: #### 1 1469146, 3760535, 4214025, 60632575, 5579462, 09710909, 97052847, 1617803, 6118649 #### [facility] [address] [place] [address] Platelets (Bld) [#/Vol] 146.0 E9/L Low 150.0-500.0 [facility] Comment on above: Performed By: #### 1 9408931, 2575221, 1679393, 14393112, 2186583, 11767107, 50293341, 4554122, 3264734 #### [facility] [address] [place] [address] RBC (Bld) [#/Vol] 4.2 E12/L Low 4.3-5.9 [facility] Comment on above: Performed By: #### 1 9745063, 8167283, 0311102, 78668692, 5132428, 29279808, 61297269, 2450321, 1752445 #### [facility] [address] [place] [address] WBC corrected for nucl RBC Auto (Bld) [#/Vol] 15.8 E9/L High 4.0-11.0 [facility] Comment on above: Result Comment: Slid e reviewed by 10/18/2022 15:09:43 EDT. Performed By: #### 1 5108182, 0011863, 3694874, 43444271, 2238091, 16856385, 05391445, 5778689, 0650212 #### [facility] [address] [place] [address] CHEMISTRYOrdered By: SYSTEM SYSTEM on 10-18-2022 Ethanol [Mass/Vol] mg/dL Normal <=7mg/dL [facility] R emisol Troponin I.cardiac [Mass/Vol] 53.00 pg/mL Invalid Interpretation Code 10.10 - 27.10 pg/mL [facility] Remisol Comment on above: Result Comment: Crit ical Result verified by previous result\ Critical Result I_hsTnI:53.0 Called to DAVIDA TAYLOR at ER by VALERIA ROGERS and read back for confirmation at 10/18/2022 21:36:32 Troponin I.cardiac [Mass/Vol] 49.60 pg/mL Invalid Interpretation Code 10.10 - 27.10 pg/mL [facility] Remisol Comment on above: Result Comment: Crit [...] Treatmenton 10-08 Consent for Treatment [id number] #1.00CD:127 Normal [facility] ED Note-Physicianon 10-19-19 ED Note-Physician Basic [...] patient assessment and treatment. Medical Decision Making [facility] Data External documents reviewed: Not applicable My EKG interpretation: As below My CT interpretation: Not applicable My X-ray interpretation: As below My Ultrasound interpretation: Not applicable Decision rules/scores evaluated: Not applicable Discussed with: Dr. Mortensen, [employer]. Dr. Butler, cardiology. Dr. Calhoun, Hospitalist. Treatment [...] tachycardia. I will call and discuss with [employer] and cardiology. (more content not included)... Normal [facility] Comment on above: Result Comment: Elec tronically Signed By: Favian Ahumada DO\.br\Date and Time Signed: 10/18/22 19:58 EDT Ethanolon 10-18-2022 Ethanol [Mass/Vol] mg/dL Normal <=7 [facility] Comment on above: Performed By: #### 2 543145 ####[facility] [address] [place] [address] HEMATOLOGYOrdered By: SYSTEM SYSTEM on 10-18-2022 Basophils/100 [...] 4.2 E12/L Low 4.3 - 5.9 E12/L [facility] HemeAutoSS WBC corrected for nucl RBC Auto (Bld) [#/Vol] 15.8 E9/L High 4.0 - 11.0 E9/L [facility] HemeAutoSS Comment on above: Result Comment: Bhargav joseph reviewed by HUGO 10/18/2022 15:09:43 EDT. Laboratory - Microbiology an d Antimicrobial susceptibilityOrdered By: Nyla Rajan on 10-18-2022 Bacteria identified Cx Nom (U) 100 cfu/ml Mixed skin contaminants [facility] Monitor Recordon 10-18-2022 Monitor Record [id number]#[id number]:127 Normal [facility] Monitor Record [id number]#1.00CD:127 Normal [facility] Monitor Record [id number]#1.00CD:127 Normal [facility] PT & PTTon 10-18-2022 aPTT Coag (PPP) [Time] 25.8 second(s) Normal 25.1-36.5 [facility] Comment on above: Result Comment: Para [...] the same coagulation reagent and instrumentation as [facility]. Currently there are no coagulation studies available worldwide for children to 14 days, and no normal ranges. Heparin therapeutic range (represented by Anti-Factor Xa activity of 0.2 - 0.4 U/mL) corresponds to PTT of 56.6 - 109.0 sec. Performed By: #### 1 2990087, 2081695, 7931405, 58760854, 5778092, 08338019, 87018272, 8936697, 0849831 #### [facility] [address] [place] [address] INR Coag (PPP) [Relative time] 1.0 {INR} Invalid Interpretation Code [facility] Comment on above: Result Comment: INR results are specifically intended to assess patients stabilized on long-term Anticoagulation therapy suggested INR?s ?Less Intensive Anticoagulation? 2.0 ? 3.0 Conventional Range 3.0 ? 4.5 Performed By: #### 1 4377321, 1264260, 1449674, 79214966, 7548291, 03403722, 41485216, 0250127, 2969265 #### [facility] [address] [place] [address] PT Coag (PPP) [Time] 10.8 second(s) Normal 9.4-12.5 [facility] Comment on above: Result Comment: 15 [...] the same coagulation reagent and instrumentation as [facility]. Currently there are no coagulation studies available worldwide for children to 14 days, and no normal ranges. Performed By: #### 1 2030678, 3822161, 3740814, 16344720, 7722232, 98935593, 39606417, 7632705, 5541503 #### [facility] [address] [place] [address] Progress Note-Nurseon 2022 Progress Note-Nurse Patient: SIDNEY CANDELARIO Age: 22 years Sex: Female : 2000 Associated Diagnoses: None Author: Mell GRAFF, Meghna 25 week GI P0 in ER. heart tracing times 10 minutes obtained. Baseline 150bpm, moderate variability with accelerations increasing to 160. Audible movement. Pt states she can feel movement. Normal [facility] Salicylateon 10-18-2022 Salicylates [Mass/Vol] mg/dL Low 6-29 [facility] Comment on above: Performed By: #### 1 4179843, 2762020, 4009717, 12253869, 4642178, 41504577, 17927546, 6563064, 4019342 ####[facility] [address] [place] [address] TSH With T4fr Reflexon 10-18 TSH Qn 1.50 m[IU]/L Normal 0.34-5.60 [facility] Comment on above: Performed By: #### 1 2260641, 2324107, 8796771, 12414752, 9689136, 78924129, 49127844, 2405114, 0479117 ####[facility] [address] [place] [address] Troponinon 10-18-2022 Troponin I.cardiac [Mass/Vol] 47.10 pg/mL Abnormal 10.10-27.10 [facility] Comment on above: Result Comment: Crit [...] Sensitivity Troponin I Instructions For Use, Carina [place], January 2018) Performed By: #### 2 253857 #### [facility] [address] [place] [address] Troponin 0 Hr.on 10-18-2022 Troponin I.cardiac [Mass/Vol] 42.20 pg/mL Abnormal 10.-.10 [facility] Comment on above: Result Comment: Crit [...] conjunction with clinical conditions of myocardial infarction. (Bharat Matrimony High Sensitivity Troponin I Instructions For Use, [place]PH[place], January 2018) Performed By: #### 1 7099080, 3020397, 0693924, 80540442, 5156262, 43679994, 86512700, 0499544, 5068153 ####[facility] [address] [place] [address] Troponin 3 Hr.on 10-18-2022 Troponin I.cardiac [Mass/Vol] 49.60 pg/mL Abnormal .04-05.10 [facility] Comment on above: Result Comment: Crit [...] conjunction with clinical conditions of myocardial infarction. (Bharat Matrim[place] High Sensitivity Troponin I Instructions For Use, [place], January 2018) Performed By: #### 1 6645332 #### [facility] [address] [place] [address] Troponin 6 Hr.on 10-18-2022 Troponin I.cardiac [Mass/Vol] 53.00 pg/mL Abnormal 10.10-.10 [facility] Comment on above: Result Comment: Crit [...] Carlos, January 2018) Performed By: #### 1 3615525 #### [facility] [address] [place] [address] U Drug Screenon 10-18-2022 Amphetamines Screen method >1000 ng/mL Ql (U) Negative Normal Negative [facility] Comment on above: Result Comment: Nega tive Cutoff: <1000 ng/mL Performed By: #### 2 507985, 7929842, 54886245 ####[facility] [address] [place] [address] Barbiturates Screen Ql (U) Negative Normal Negative [facility] Comment on above: Result Comment: Nega tive Cutoff: <200 ng/mL Performed By: #### 2 108128, 0788080, 33266329 ####[facility] [address] [place] [address] Benzodiazepines Ql (U) Negative Normal Negative [facility] Comment on above: Result Comment: Nega tive Cutoff: <200 ng/mL Performed By: #### 2 756569, 9393872, 59703155 ####[facility] [address] [place] [address] Cocaine Ql (U) Negative Normal Negative [facility] Comment on above: Result Comment: Nega tive Cutoff: <300 ng/mL Performed By: #### 2 464931, 8930117, 25699795 ####[facility] [address] [place] [address] Opiates Screen Ql (U) Negative Normal Negative [facility] Comment on above: Result Comment: Nega tive Cutoff: <300 ng/mL Performed By: #### 2 115851, 0836045, 11550722 ####[facility] [address] [place] [address] Phencyclidine Screen method >25 ng/mL Ql (U) Negative Normal Negative [facility] Comment on above: Result Comment: Nega tive Cutoff: <25 ng/mL These drug screen results are to be used for medical (i.e., treatment) purposes only. Unconfirmed drug screening results must not be used for non-medical purposes (e.g., employment testing, legal testing). Performed By: #### 2 660651, 4547079, 84934878 ####[facility] [address] [place] [address] Tetrahydrocannabinol Screen method >50 ng/mL Ql (U) Negative Normal Negative [facility] Comment on above: Result Comment: Nega tive Cutoff: <50 ng/mL Performed By: #### 2 205319, 8965912, 32300285 ####[address] [place] [address] UA With Cult Reflexon 2022 Bacteria LM Ql (Urine sed) 2+ /HPF Abnormal Trace [facility] Comment on above: Performed By: #### 2 243666, 4893841, 66259003 ####[facility] [address] [place] [address] Bilirubin Ql (U) Negative Normal Negative [facility] Comment on above: Performed By: #### 2 867906, 0967897, 63788804 ####[facility] [address] [place] [address] Clarity (U) SL CLOUDY Abnormal Clear [facility] Comment on above: Performed By: #### 2 649555, 6576282, 87669432 ####[facility] [address] [place] [address] Color (U) YELLOW Normal Yellow [facility] Comment on above: Performed By: #### 2 521695, 6323594, 50850718 ####[facility] [address] [place] [address] Epithelial cells.squamous LM.HPF (Urine sed) [#/Area] /[HPF] Normal 0-2 [facility] Comment on above: Performed By: #### 2 394132, 8158908, 64183292 ####[facility] [address] [place] [address] Glucose Test strip (U) [Mass/Vol] Negative Normal Negative [facility] Comment on above: Performed By: #### 2 518904, 3300539, 74370206 ####[facility] [address] [place] [address] Hemoglobin Ql (U) Negative Normal Negative [facility] Comment on above: Performed By: #### 2 669664, 8197532, 95562270 ####[facility] [address] [place] [address] Ketones (U) [Mass/Vol] Negative Normal Negative [facility] Comment on above: Performed By: #### 2 379460, 4701487, 08040612 ####[address] [address] [place].plasma/[place].R BC (Bld) [Mass ratio] 4-20 Normal 0-3 [facility] Comment on above: Performed By: #### 2 940867, 1423099, 06570926 ####[facility] [address] [place] [address] Nitrite Ql (U) Negative Normal Negative [facility] Comment on above: Performed By: #### 2 928748, 5453263, 15804155 ####[facility] [address] [place] [address] pH (U) 6.5 [pH] Invalid Interpretation Code 5.0-9.0 [facility] Comment on above: Performed By: #### 2 873497, 9420417, 55939796 ####[facility] [address] [place] [address] Protein (U) [Mass/Vol] Negative Normal Negative [facility] Comment on above: Performed By: #### 2 222347, 0357217, 47745135 ####[address] [address] Specific gravity (U) [Rel density] 1.015 Invalid Interpretation Code 1.005-1.030 [facility] Comment on above: Performed By: #### 2 613265, 3909543, 70677164 ####[facility] [address] [place] [address] Type of Urine collection method Clean Catch Normal [facility] Comment on above: Performed By: #### 2 351229, 8448595, 99947797 ####[facility] [address] [place], [place] [address] Urobilinogen Qn (U) 0.2 {Yg'U}/dL Normal 0.0-1.0 [facility] Comment on above: Performed By: #### 2 580724, 8647103, 04867921 ####[facility] [address] [place] [address] WBC Auto Ql (U) 1+ Abnormal Negative [facility] Comment on above: Performed By: #### 2 305941, 1709122, 88285323 ####[facility] [address] [place] [address] WBC LM.HPF (Urine sed) [#/Area] 16-25 Abnormal 0-5 [facility] Comment on above: Performed By: #### 2 586402, 6844070, 93893434 ####[facility] [address] [place] [address] URINALYSISOrdered By: Citlali Rogers on 10-18-2022 Bacteria [...] PM) Normal Negative [facility] UA Auto SS [place].plasma/[place].R BC (Bld) [Mass ratio] 4-20 /HPF Normal 0-3/HPF [facility] Au to SS Nitrite Ql (U) Negative (10/18/22 1:37 PM) Normal Negative [facility] UA Auto SS pH (U) 6.5 *NA* (10/18/22 1:37 PM) Invalid Interpretation Code 5.0 - 9.0 [facility] UA Auto SS Protein (U) [Mass/Vol] Negative (10/18/22 1:37 PM) Normal Negative [facility] UA Auto SS Specific gravity (U) [Rel density] 1.015 *NA* (10/18/22 1:37 PM) Invalid Interpretation Code 1.005 - 1.030 [facility] UA Auto SS UA Spec Desc Clean Catch (10/18/22 1:37 PM) Normal [facility] UA Auto SS Urobilinogen Qn (U) 0.7011713 {Yg'U}/dL Normal 0.0 - 1.0 EU/dL [facility] [...] Ahumada FINAL REPORT Dictated: 10/18/2022 3:07 pm Napoleon Tello MD, V. Signed (Electronic Signature): 10/18/2022 3:07 pm Signed by: Napoleon Tello MD, V. Transcribed by: FELI Technologist: HARPREET Technical Comments Radiation Dose: Kar in mGy = na DAP = na Normal [facility] eGFRon 10-18-2022 GFR/1.73 sq M.predicted among non-blacks MDRD (S/P/Bld) [Vol rate/Area] 138 mL/min/1.73 m2 Normal >=59 [facility] Comment on above: Order Comment: Order added by Discern Expert. Result Comment: Script Developer sydnie kidney disease could be indicated at eGFR's of less than 60 mL/min/1.73m2. Kidney failure is indicated at less than 15 mL/min/1.73m2. Performed By: #### 1 4443563, 8533750, 6503080, 36919283, 3587215, 07969960, 44593997, 9749751, 7656175 #### [facility] [address] [place] [address] US PREG ANATOMY SINGLEon US PREG ANATOMY [...] CAMELIA MENDEZ Date: 2022-10-08 15:26 Normal [facility] CHLAMYDIA/GONOCOCCUS TETO (SW AB/URINE/PAPon 08-28-2022 Chlamydia trachomatis, TETO Negative Normal Negative [facility] Comment on above: Performed By: #### C T/NGNA #### [facility] [address] [place] [address] [address] Maribell Perea Neisseria gonorrhoeae, TETO Negative Normal Negative [facility] Comment on above: Performed By: #### C T/NGNA #### [facility] [address] [address] [address] Maribell Perea VAGINITIS/VAGINOSIS DNA PROB Romeo 08-25-2022 Beatrice species Negative Normal Negative [facility] Comment on above: Performed By: #### V AGINT ####[facility] [address] [place] [address]Dr. Maribell Perea Gardnerella vaginalis Negative Normal Negative [facility] Comment on above: Performed By: #### V AGINT ####[facility] [address] [place] [address]Dr[address] Perea Trichomonas vaginalis Negative Normal Negative [facility] Comment on above: Performed By: #### V AGINT ####[facility] [address] [place] [address]Dr. Maribell Perea HEP B SURFACE ANTIGEN SCREEN on 07-25-2022 HBsAg Screen Negative Normal Negative [facility] Comment on above: Performed By: #### H BSANS #### [facility] [address] [address] [address] Maribell Perea HEPATITIS C VIRUS AB W/ REFL EX QUANTon 07-25-2022 HCV AB Non-Reactive Normal Non Reactive [facility] Comment on above: Performed By: #### H CVPCRR #### [facility] [address] [place] [address] Dr. Maribell Perea Interpretation: Comment Normal [facility] Comment on above: Result Comment: Not infected with HCV unless early or acute infection is suspected (which may be delayed in an immunocompromised individual), or other evidence exists to indicate HCV infection. Performed By: #### H CVPCRR #### [facility] [address] [place] [address] Dr. Maribell Perea HIV 1 AND 2 WITH REFLEXon HIV Screen 4th Generation wRfx Non-Reactive Normal Non Reactive [facility] Comment on above: Result Comment: HIV Negative HIV-1/HIV-2 antibodies and HIV-1 p24 antigen were NOT detected. There is no laboratory evidence of HIV infection. Performed By: #### H IV12 #### [facility] [address] [place] [address] Dr. Maribell Perea RPR QUANTon 07-25-2022 Rapid Plasma Reagin, Quant Non-Reactive Normal NonRea<1:1 [facility] Comment on above: Result Comment: Yudith jeter Note: This test does not meet current guidelines for screening and diagnosis of syphilis. This test is intended for following treatment response in patients being treated for syphilis infection. To screen for syphilis infection, a reflex cascade that includes both RPR and a treponema-specific assay should be utilized, such as Treponema pallidum (Syphilis) Screening [place] (668055) or Rapid Plasma Reagin (RPR) Test With Reflex to Quantitative RPR and Confirmatory Treponema pallidum Antibodies (008095). Performed By: #### R PRQ #### [facility] [address] [place] [address] Dr. Maribell Perea RUBELLA AB IGGon 07-25-2022 Rubella Antibodies, IgG <0.90 Critically low Immune > 0.99 [facility] Comment on above: Result Comment: Non- immune <0.90 Equivocal 0.90 - 0.99 Immune >0.99 Performed By: #### R UBIGG #### [facility] [address] [address] [address] Maribell Perea CULTURE URINEon 07-23-2022 CULTURE URINE Culture Observations: NO GROWTH. Normal [facility] Comment on above: Performed By: #### U RCX ####[facility] [address] [place] [id number][address] Maribell Perea GLYCOHEMOGLOBIN A1Con 2022 ADA RECOMMENDATION SEE BELOW Normal [facility] Comment on above: Result Comment: ADA RECOMMENDED LIMIT 4.0 - 6.0 ADA THERAPEUTIC TARGET < 7.0 ACTION SUGGESTED > 7.0 Performed By: #### A 1C #### [facility] [address] [address] [address] Maribell Perea Glucose [Mass/Vol] 97 mg/dL Normal [facility] Comment on above: Performed By: #### A 1C #### [facility] [address] [address] [address] Maribell Perea HbA1c (Bld) [Mass fraction] 5.0 % Normal 4.5-6.2 [facility] Comment on above: Performed By: #### A 1C #### [facility] [address] [address] [address] Maribell Perea BEULAH BOX TEST PT SEND OUTo n 07-23-2022 SENT TO REF LAB 07/23/[address] [facility] Comment on above: Performed By: #### N BOX #### [facility] [address] [address] [address] Maribell Perea TYPE AND SCREENon 07-23-2022 TYPE AND SCREEN Negative Normal [facility] Comment on above: Performed By: #### T NS ####[facility] [address] [place] [id number]. Maribell Perea US PREG TVon 06-28-2022 US [...] by: CAMELIA MENDEZ Date: 2022-06-28 09:17 Normal [facility] Vital Signs Date Time Vital Sign Value Performing Clinician Facility 06-18-2023 15:11-0500 Blood Pressure Location [facility] 06-18-2023 15:11-0500 Body temperature 97.88 [degF] [facility] 06-18-2023 15:11-0500 Diastolic blood pressure 76 mm[Hg] [facility] 06-18-2023 15:11-0500 Heart rate 90 /min [facility] 06-18-2023 15:11-0500 SaO2% (BldA) [Mass fraction] 98 % [facility] 06-18-2023 15:11-0500 Systolic blood pressure 116 mm[Hg] [facility] 10-19-2022 13:00-0400 Hourly Rounding JonaUnpakt [facility] 10-19-2022 13:00-0400 Promise to Return CM Sistemi [facility] 10-19-2022 12:23-0400 Heart rate 101 /min CM Sistemi [facility] 10-19-2022 12:23-0400 SaO2% (BldA) [Mass fraction] 98 % CM Sistemi [facility] 10-19-2022 12:23-0400 Body temperature 98.06 [degF] CM Sistemi [facility] 10-19-2022 12:23-0400 Diastolic blood pressure 65 mm[Hg] Jona Cristin [facility] 10-19-2022 12:23-0400 Mean blood pressure 77 mm[Hg] Jona Cristin [facility] 10-19-2022 12:23-0400 Systolic blood pressure 102 mm[Hg] Jona Cristin [facility] 10-19-2022 12:15-0400 Hourly Rounding Jona Cristin [facility] 10-19-2022 12:15-0400 Promise to Return Jona Cristin [facility] 10-19-2022 11:21-0400 Hourly Rounding Jona Cristin [facility] 10-19-2022 11:21-0400 Promise to Return Jona Cristin [facility] 10-19-2022 08:24-0400 Heart rate 103 /min Jona Cristin [facility] 10-19-2022 08:24-0400 SaO2% (BldA) [Mass fraction] 98 % Jona Cristin [facility] 10-19-2022 08:24-0400 Diastolic blood pressure 61 mm[Hg] Jona Cristin [facility] 10-19-2022 08:24-0400 Mean blood pressure 72 mm[Hg] Jona Cristin [facility] 10-19-2022 08:24-0400 Systolic blood pressure 93 mm[Hg] Jona Cristin [facility] 10-19-2022 08:23-0400 Body temperature 98.24 [degF] Jona Cristin [facility] 10-19-2022 05:12-0400 Heart rate 95 /min Jona Cristin [facility] 10-19-2022 05:12-0400 SaO2% (BldA) [Mass fraction] 98 % Jona Cristin [facility] 10-19-2022 05:12-0400 Diastolic blood pressure 41 mm[Hg] Jona Cristin [facility] 10-19-2022 05:12-0400 Mean blood pressure 56 mm[Hg] Jona Cristin [facility] 10-19-2022 05:12-0400 Systolic blood pressure 86 mm[Hg] Jona Cristin [facility] 10-19-2022 05:12-0400 Body temperature 98.6 [degF] Jona Cristin [facility] 10-18-2022 22:59-0400 Respiratory rate 20 /min Jona Cristin [facility] 10-18-2022 21:45-0400 Mean blood pressure 84 mm[Hg] Jona Cristin [facility] 10-18-2022 21:45-0400 Respiratory rate 15 /min Jona Cristin [facility] 10-18-2022 21:00-0400 Mean blood pressure 82 mm[Hg] Jona Cristin [facility] 10-18-2022 21:00-0400 Respiratory rate 17 /min Jona Cristin [facility] [facility] 20:00-0400 Mean blood pressure 89 mm[Hg] Jona Cristin [facility] 10-18-2022 14:08-0400 gluc 93 mg/dL Jona Cristin [facility] 10-18-2022 14:08-0400 gluc Jona Amaral [facility] 10-18-2022 14:08-0400 Respiratory rate 15 /min Jona Amaral [facility] 10-18-2022 13:30-0400 Heart rate 108 /min Jona Amaral [facility] 10-18-2022 13:30-0400 Respiratory rate 16 /min Jonaguillermo Amaral [facility] Encounters Encounter Date Encounter Type Care Provider Facility Start: 02-05-2024 End: 02-05-2024 ambulatory MAGDA BALA Not Available Start: 01-22-2024 End: 01-22-2024 ambulatory KRISTINE DARCI Not Available Start: 12-25-2023 End: 12-25-2023 ambulatory MAGDA BALA Not Available Start: 11-27-2023 End: 11-27-2023 ambulatory MAGDA BALA Not Available Start: 10-29-2023 End: 10-29-2023 ambulatory KRISTINE DARCI Not Available Start: 10-01-2023 End: 10-01-2023 ambulatory MAGDA BALA Not Available Start: 09-05-2023 End: 09-05-2023 ambulatory MAGDA BALA Not Available Start: 06-18-2023 End: 06-18-2023 Lab Drop off Mike Fuentes [facility] Start: 06-18-2023 End: 06-18-2023 [facility] Start: 10-22-2022 End: 10-22-2022 ambulatory Roslyn Valdes Facility:CD:[id number] Start: 10-18-2022 End: 10-19-2022 ambulatory Sahil BUTLER Facility:[facility] Start: 10-18-2022 End: 10-19-2022 Observation Jona S Cristin [facility] Start: 10-06-2022 End: 10-07-2022 ambulatory KRISTINE BEJARANO . Facility:[facility] Start: 08-23-2022 End: 08-23-2022 ambulatory KRISTINE BEJARANO . Facility:[facility] Start: 07-23-2022 End: 07-24-[address] MAGDA LIMON . Facility:[facility] Start: 06-28-2022 End: 06-29-[address] MAGDA LIMON . Facility:[facility] Start: 06-06-2022 ambulatory Esperanza Dong y:[facility] [place] Immunizations Immunization Date Immunization Notes Care Provider Fa [facility] 02-09-2021 meningococcal B vacc ine, recombinant, OMV, adjuvanted CM Sistemi [facility] [place] 02-09-2021 meningococcal oligosaccharide (groups A, C, Y and W-135) diphtheria toxoid conjugate vaccine (MCV4O) CM Sistemi [facility] 02-09-2021 hepatitis A vaccine, pediatric/adolescent dosage, 2 dose schedule [employer] [facility] 07-14-2018 hepatitis A vaccine, adult dosage CM Sistemi [facility] 07-14-2018 HPV, unspecified formulation CM Sistemi [facility] 07-14-2018 meningococcal B vacc ine, fully recombinant CM Sistemi [facility] [place] 12-26-2015 HPV, unspecified formulation CM Sistemi [facility] 12-26-2015 meningococcal ACWY vaccine, unspecified formulation CM Sistemi [facility] 12-26-2015 tetanus toxoid, unspecified formulation CM Sistemi [facility] [place] 04-28-2009 influenza virus vacc ine, unspecified formulation CM Sistemi [facility] [place] 04-28-2008 influenza virus vacc ine, unspecified formulation CM Sistemi [facility] [place] 02-26-2008 diphtheria, tetanus toxoids and acellular pertussis vaccine JonaKiddie Kister [facility] [place] 02-26-2008 measles, mumps and rubella virus vaccine Jona Cristin [facility] [place] 02-26-2008 poliovirus vaccine, unspecified formulation CM Sistemi [facility] 02-26-2008 varicella virus vaccine [employer] [facility] [place] 10-27-2003 diphtheria, tetanus toxoids and acellular pertussis vaccine CM Sistemi [facility] 10-27-2003 haemophilus influenz ae type b vaccine, PRP-OMP conjugate CM Sistemi [facility] 10-27-2003 measles, mumps and rubella virus vaccine [employer] [facility] [place] 10-27-2003 varicella virus vaccine Vincent [employer] [facility] [place] 04-28-2003 diphtheria, tetanus toxoids and acellular pertussis vaccine [employer] [facility] 04-28-2003 haemophilus influenz ae type b vaccine, PRP-OMP conjugate CM Sistemi [facility] [place] 04-28-2003 hepatitis B vaccine, pediatric or pediatric/adolescent dosage CM Sistemi [facility] [place] 04-28-2003 pneumococcal conjuga te vaccine, 13 valent Jona Cristin [facility] 04-28-2003 poliovirus vaccine, unspecified formulation Jona Cristin [facility] 2002 diphtheria, tetanus toxoids and acellular pertussis vaccine Jona Cristin [facility] 2002 haemophilus influenz ae type b vaccine, PRP-OMP conjugate CM Sistemi [facility] 2002 pneumococcal conjuga te vaccine, 13 valent Jona Cristin [facility] 2002 poliovirus vaccine, unspecified formulation Jona Cristin [facility] 2002 diphtheria, tetanus toxoids and acellular pertussis vaccine Jona Cristin [facility] 2002 haemophilus influenz ae type b vaccine, PRP-OMP conjugate CM Sistemi [facility] 2002 hepatitis B vaccine, pediatric or pediatric/adolescent dosage Jona Cristin [facility] 2002 pneumococcal conjuga te vaccine, 13 valent Jona Cristin [facility] 2002 poliovirus vaccine, unspecified formulation Jona [employer] [facility] 2002 hepatitis B vaccine, pediatric or pediatric/adolescent dosage Jona Cristin [facility] Payers Date Payer Category Payer Unknown [id number] 2023 Private Health Insurance [facility] [id number] 2021 Private Health Insurance 2002 Unknown [id number] 2.16.84 [id number] 2002 Unknown [id number] 2.16.84 [id number] 2002 Unknown [id number] 2.16.84 [id number] 2002 Unknown [id number] 2.16.84 0.1.085633.3.579.2.593 2002 Unknown [id number] 2.16.8 [id number] 2002 Unknown [id number] 2.16.8 40.1.808906.3.579.2.727 2002 Unknown [id number] 2.16.84 0.1.844402.3.579.2.1259 2002 Unknown [id number] 2.16.84 0.1.397509.3.579.2.1259 2002 Unknown [id number] 2.16.84 0.1.116030.3.579.2.1259 2002 Unknown [id number] 2.16.84 0.1.546616.3.579.2.1259 2002 Unknown [id number] 2.16.84 0.1.845352.3.579.2.1259 2002 Unknown [id number] 2.16.84 0.1.112163.3.579.2.1259 2002 Unknown [id number] 2.16.84 [id number] 1959 Self-pay 1957 Unknown [id number] Unknown [id number] 2.16.84 [id number] Social History Date Type Detail Facility Tobacco [facility] Comment on above: denies Tobacco smoking status No Smokin g Status Entered [facility] Sex Assigned At Female [facility] Start: 06-18-2023 Tobacco smoking status Never s moked tobacco (finding) [facility] Comment on above: denies Tobacco smoking status Never [facility] Comment on above: denies Functional Status Date Assessment Result Facility 06-18-2023 Functional Status N/A [facility] 10-18-2022 Functional Status N/A [facility] 10-18-2022 Functional Status [facility] Clinical Notes 10-18-2022 to 06-18-2023 Note Date & Type Note Facility 06-18-2023 Hospital Discharge instructions Patient Education 06/18/2023 16:34:28 Pharyngitis, Sfzj-jx-Ibki Pharyngitis Pharyngitis is a sore throat (pharynx). [...] Follow these instructions at home: Medicines Take yqhi-upv-iacuiud and prescription medicines only as told by [...] and water are not available, use hand manager pathology. Do not touch your eyes, nose, or [...] provider. Document Revised: 08/23/2021 Document Reviewed: 08/23/2021 [employer] Patient Education 2022 [employer] travel. 06/18/2023 16:34:25 Viral Illness, Adult Viral Illness, [...] Medicines to relieve symptoms. These can include fxbw-xjw-iupuxna medicine for pain and fever, medicines for cough or congestion, and medicines to relieve diarrhea. Antiviral medicines. These medicines are available only for certain types of viruses. Some viral illnesses can be prevented with vaccinations. A common example is the flu shot. Follow these instructions at home: Medicines Take qawc-kps-qjtkwjp and prescription medicines only as told by [...] and water are not available, use hand manager pathology. Avoid touching your nose, eyes, and mouth, [...] provider. Document Revised: 10/10/2020 Document Reviewed: 04/05/2020 [employer] Patient Education 2022 [employer] travel. [facility] 06-18-2023 Evaluation + Plan note Diagnostic Tests PendingGroup A Strep by PCR 06/18/23 [facility] 01-23-2023 Note Procedure History None. Hospital Course [...] drug abuse. 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 Butler and [employer] Dr. Mortensen. Telemetry monitoring and echocardiogram was [...] this is written under the wrong FIN [facility] Comment on above: Result Comment: Elec [...] drug abuse. 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 Butler and [employer] Dr. Mortensen. Telemetry monitoring and echocardiogram was [...] 78.2 % Lymph Auto - 12.3 % Ellsworth Auto - 8.5 % Eos Auto - 0.6 % Basophil Auto - 0.4 % Neutro Absolute - 12.7 E9/L Lymph Absolute - 2.0 E9/L [place]sworth Absolute - 1.4 E9/L Eos Absolute - [...] NEGATIVE1 UA Nitri (more content not included)... [facility] Comment on above: Result Comment: Elec [...] me to participate in this patient's care. Jono Mortensen M.D. lr Dictated: 10/19/2022 [id number] Transcribed: 10/19/2022 cc:Magda Limon D.O. [facility] Comment on above: Result Comment: Elec tronically Signed By: Festus MOSS, Jono Layne\.br\Date and Time Signed: 10/20/22 02:24 EDT 10-19-2022 Note Order received, corinne t reviewed. Attempted PT evaluation at 1424 on 10/19/22. Pt. is out of room and has been discharged from acute medical facility prior to completion of PT evaluation. No PT charges. [facility] 10-19-2022 Note Echocardiology Procedure Exam Date/Time Accession # Ordering Dr. Longoria Transthoracic 10/19/2022 12:02 EDT [id number] Favian Ahumada DO Complete CPT code 56089 11076 Reason for Exam (Echo Transthoracic Complete) Syncope Report [facility] [address] [place] [address] Adult Echocardiogram Report Name: SIDNEY CANDELARIO Study Date: 10/19/2022 11:33 AM BP: 93/61 mmHg Patient Location: [address] [place] [address] HR: 95 : 2000 Gender: Female Height: 60 in Age: 22 yrs Ethnicity: [facility] Weight: 110 lb Reason For Study: Syncope BSA: 1.4 m2 History: No cardiac history per patient Ordering Physician: Diego^Ale Performed By: Ro Guerrero [facility] Interpretation Summary Ejection Fraction = 65-70%. The [...] Sahil Butler MD Transcribed by: MAYRA Technologist: ÁLVARO [facility] 10-19-2022 Evaluation + Plan note Extrac shahrzad from: Title:Consult Note Author:Sahil Butler MD Da te:10/19/22 1. Near syncope (R55: Syncop e [...] made to ensure accuracy, however, inadvertently computerized wildlife policy professional mistakes may be present. Dr. Jona Amaral [...] Weight Diagnostic Tests Pending * Cortisol 10/19/22 [facility]05-12-2023 NoteChief Complaint Dizziness Reason for Consultation Abnormal [...] not improve, she sought medical attention at [facility] emergency room. In theemergency room her EKG [...] check Historical No q (more content not included)...[facility] Comment: Electronically Signed By: Isreal MOSS, Sahil Swartz.rafael\Date and Time Signed: 10/19/22 10:01 [id number] Hospital Discharge instructions Patient Education 10/19/2022 09:40:44 [...] Treatment for this condition includes: Antibiotic medicine. Xqil-qru-vnklyly medicines to treat discomfort. Drinking enough water [...] Follow these instructions at home: Medicines Take ffwy-bop-chpyitr and prescription medicines only as told by [...] provider. Document Revised: 01/06/2021 Document Reviewed: 01/06/2021 [employer] Patient Education 2022 [employer] 517 travel. 10/19/2022 09:40:42 Near-Syncope, Ngoa-hz-Yllb Near-Syncope Near-syncope is when you suddenly feel [...] Follow these instructions at home: Medicines Take bvjd-toi-zpfpzdg and prescription medicines only as told by [...] away. Call your local emergency services (911 inthe [place] Do not wait to see if [...] provider. Document Revised: 10/05/2021 Document Reviewed: 10/05/2021 [employer] Patient Education 2022 The 517 travel. Follow Up Care 10/18/2022 13:28:40 With:Isreal MOSS, Sahil Fuller Address: [address] [place] [address]- [phone] When:2 weeks With:Roslyn Valdes MD, [facility] Address: [phone] When:2 to 4 days [facility]05-11-2023 NoteChief Complaint pt reports being 25 weeks [...] drug abuse. 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 Butler and [employer] Dr. Mortensen. Telemetry monitoring and echocardiogram was [...] Lymph Auto: 11.2 % Low (10/18/22 14:39:00) Ellsworth Auto: 8.3 % (10/18/22 14:39:00) Eos Auto: 0.5 % (10/18/22 14:39:00) Basophil Auto: 0.6 % (10/18/22 14:39:00) Neutro Absolute: 12.5 E9/L High (10/18/22 14:39:00) Lymph Absolute: 1.8 E9/L (10/18/22 14:39:00) Ellsworth Absolute: 1.3 E9/L High (10/18/22 14:39:00) Eos [...] assessed the patient i (more content not included)...[facility]Result Comment: Electronically Signed By: Cristin MOSS, Jona Rivera\.br\Date and Time Signed: 10/18/22 19:03 EDTHospital course Narrative No data available for this section [facility] No data available for this section [facility] No data available for this section [facility] Summary Purpose Family History No Family History Records FoundNo Family History Records Found No data available for this section No data available for this section No Family History Records Found Advance Directives No Advanced Directives Records FoundNo Advanced Directives Records FoundNo Advanced Directives Records Found Additional Source Comments INFORMATION SOURCE (unrecogn ized section and content) DATE CREATED AUTHOR 10/13/2022 [facility] DATE CREATED AUTHOR AUTHOR'S ORGANIZ ATION 01/24/2023 [facility] DATE CREATED AUTHOR AUTHOR'S ORGANIZ ATION 02/07/2024 [facility] Patient Care team informatio n (unrecognized section and content) Personnel Name: Roslyn Valdes MD Address: Address: [address] [place] [address] Personnel Name: Roslyn Valdes MD Address: Address: [address] [place] [address] Personnel Name: Roslyn Valdes MD Address: Address: [address] [place] [address] FOR RECORDS PERTAINING TO PATIENTS WHO ARE [...] BE BASED ON THE PRIMARY CLINICAL RECORDS. [facility]. provides no warranty or guarantee of the accuracy or completeness of information in this document.
== END 2024-02-20 10:26 | disposition home or self-care (01) ==
LOC: NOMS 10:26
PROVIDERS: Visit Provider Obstetrics & Gynecology
DX: O26.843 Uterine size-date discrepancy, third trimester (principal); Z3A.31 31 weeks gestation of pregnancy
CPT/HCPCS: 76816

== ENCOUNTER 2024-03-19 14:46 | Outpatient (OUT) | payer BC, SELFPAY ==
--- NOTE | 2024-03-19 14:48 | US_ITS ---
[address] [address] Patient Name: SIDNEY CANDELARIO MRN: [id number] date: 2000 Sex: F Assigned Patient Location: [facility] Current Patient Location: [facility] Accession/Order Number: [id number] Exam Date: 03/19/2024 14:49 Report Date: 03/20/2024 08:39 At the request of: MAGDA MCKENNA Procedure: US OB growth EXAMINATION: US OB growth HISTORY: SMALL FOR GESTATIONAL AGE COMPARISON: No relevant comparison available. FINDINGS: Heart Rate: 140 bpm Amniotic Fluid Volume: 14.5 cm, largest fluid pocket 5.0 cm Number: 1 Position: Cephalic presentation, longitudinal lie BIOMETRY: BPD: 8.18 cm; 32 weeks 6 days; <3 % HC: 30.41 cm; 33 weeks 6 days; <3 % AC: 30.62 cm; 34 weeks 4 days; 15.50 % FL: 6.73 cm; 34 weeks 4 days; 10.40 % EFW: 2261.79 g; 9.80 % FL/AC: 21.98 FL/BPD: 82.27 HC/AC: 0.99 GESTATIONAL AGE: Age by EDC: 36 weeks 2 days SAMIR by EDC: 2024-04-14 Age by US: 34 weeks 0 days SAMIR by US: 2024-04-30 US/US OB growth IMPRESSION: BPD and head circumference less than the 3rd percentile Estimated weight at the 10th percentile Electronically authenticated by: ANEL GIBBONS Date: 03/20/2024 08:39
--- OUTSIDE RECORDS SUMMARY | 2024-03-19 15:02 | XMS_ITS | CCD ---
Author Organization [facility] Care Team Providers Care Restrictive Preparation Operator Name Role Phone BALA ., DR [...] Consulting Unavailable Keisha, Roslyn Primary Care Physician [phone] Sahil BUTLER Consulting Unavailable Jona Amaral Admitting Unavailable Jona Amaral Attending Unavailable Sahil BUTLER Consulting Unavailable Sahil BUTLER Consulting Unavailable Roslyn Valdes Admitting Unavailable Esperanza SONG Attending Unavailable IRVING LIMON Attending Unavailable DARCIKRISTINE Attending Unavailable BALAIRVING Attending Unavailable BALA, IRVING Attending Unavailable DARCI, KRISTINE Attending Unavailable BALA, IRVING Attending Unavailable DARCI, KRISTINE Attending Unavailable Medications Current Medications Medication Drug Class(es) Dates Sig (Normalized) Sig (Original) cephalexin 500 mg oral capsule (1 source) Cephalosporin Antibacterial Start: 10-19-2022 End: 10-23-2022 take 1 capsule by mouth every six hours Keflex 500 mg Cap 500 mg = 1 cap(s), Oral, q6hr, X 4 day(s), # 16 cap(s), Refills(s) 0, Pharmacy: [facility] 152, cm, 10/18/22 13:33:00 EDT, Height/Length Dosing, [...] Range Facility Nursing Assessmenton 023 Nursing Assessment [id number] #1.00CD:127 Normal [facility] Discharge Instructionson Discharge Instructions [id number] #1.00CD:127 Normal [facility] C Urineon 10-20-2022 Bacteria identified Cx Nom (U) Microbiology PROCEDURE: Urine Culture [R1] SOURCE: U CleanCatch BODY SITE: COLLECTED DATE/TIME: 10/18/2022 13:37 EDT RECEIVED DATE/TIME: 10/18/2022 14:02 EDT START DATE/TIME: 10/18/2022 14:02 EDT FREE TEXT SOURCE: Favian Ahumada DO, DO, Kevin M. FINAL REPORTS Final Report [] Verified Date/Time: 10/20/2022 11:12 EDT 200 cfu/ml Mixed skin contaminants Performing Locations R1: This test was performed at: [facility], [address] [place] [address], [address] [place] [address], [facility] Comment on above: Performed By: #### 2 [id number], [id number], [id number] ####[facility] [address] [place] [address] Cortisolon 10-20-2022 Cortisol [Mass/Vol] 18.4 microgram/dL Invalid Interpretation Code 6.2-19.4 [facility] Comment on above: Result Comment: Yudith jeter Note: The reference interval and flagging for this test is for an AM collection. If this is a PM collection please use: Cortisol PM: 2.3-11.9 Performed at: [facility] [address] [id number] PhD Buck Montes Performed By: #### 2 [id number] #### [facility] Laboratory [address] [place] [address] [place] [address] Auto Diffon 10-19-2022 Basophils/100 WBC (Bld) 0.4 % Normal 0.0-2.[address] [facility] Comment on above: Order Comment: Order Added by Discern Expert. Performed By: #### 2 937273 #### [facility] Laboratory [address] [place] [address] Basophils/Leukocytes Auto (Bld) [Pure # fraction] 0.1 E9/L Normal 0.0-0.2 [facility] Comment on above: Order Comment: Order Added by Discern Expert. Performed By: #### 2 473900 #### [facility] Laboratory [address] [place] [address] Eosinophils/100 WBC (Bld) 0.6 % Normal 0.0-8.0 [facility] Comment on above: Order Comment: Order Added by Discern Expert. Performed By: #### 2 299154 #### [facility] Laboratory [address] [place] [address] Eosinophils/Leukocytes Auto (Bld) [Pure # fraction] 0.1 E9/L Normal 0.0-0.5 [facility] Comment on above: Order Comment: Order Added by Discern Expert. Performed By: #### 2 640278 #### [facility] Laboratory [address] [place] [address] Lymphocytes/100 WBC (Bld) 12.3 % Low 14.0-50.0 [facility] Comment on above: Order Comment: Order Added by Discern Expert. Performed By: #### 2 [id number] #### [facility] Laboratory [address] [place] [address] Lymphocytes/Leukocytes Auto (Bld) [Pure # fraction] 2.0 E9/L Normal 1.0-4.0 [facility] Comment on above: Order Comment: Order Added by Discern Expert. Performed By: #### 2 667071 #### [facility] Laboratory [address] [place] [address] Monocytes/100 WBC (Bld) 8.5 % Normal 4.0-14.0 [facility] Comment on above: Order Comment: Order Added by Discern Expert. Performed By: #### 2 815132 #### [facility] Laboratory [address] [place] [address] Monocytes/Leukocytes Auto (Bld) [Pure # fraction] 1.4 E9/L High 0.2-1.0 [facility] Comment on above: Order Comment: Order Added by Discern Expert. Performed By: #### 2 327668 #### [facility] Laboratory [address] [place] [address] Neutrophils/100 WBC (Bld) 78.2 % High 36.0-75.0 [facility] Comment on above: Order Comment: Order Added by Discern Expert. Performed By: #### 2 711954 #### [facility] Laboratory [address] [place] [address] Neutrophils/Leukocytes Auto (Bld) [Pure # fraction] 12.7 E9/L High 2.0-7.5 [facility] Comment on above: Order Comment: Order Added by Discern Expert. Performed By: #### 2 447960 #### [facility] Laboratory [address] [place] [address] BMPon 10-19-2022 Anion gap [Moles/Vol] 10 mmol/L Normal 6-16 [facility] Comment on above: Performed By: #### 2 749548 #### [facility] Laboratory [address] [place] [address] Calcium [Mass/Vol] 8.0 mg/dL Low 8.9-11.1 [facility] Comment on above: Performed By: #### 2 514843 #### [facility] Laboratory [address] [place] [address] Chloride [Moles/Vol] 106 mmol/L Normal 101-111 [facility] Comment on above: Performed By: #### 2 704436 #### [facility] Laboratory [address] [place] [address] CO2 [Moles/Vol] 23 mmol/L Normal 21-31 [facility] Comment on above: Performed By: #### 2 567340 #### [facility] Laboratory [address] [place] [address] Creatinine [Mass/Vol] 0.5 mg/dL Normal 0.5-1.3 [facility] Comment on above: Performed By: #### 2 603845 #### [facility] Laboratory [address] [place] [address] Glucose [Mass/Vol] 82 mg/dL Normal 55-199 [facility] Comment on above: Result Comment: If t his glucose result represents a fasting glucose, interpretation should refer to the following reference range: 55-99 mg/dL Performed By: #### 2 641706 #### [facility] Laboratory [address] [place] [address] Potassium [Moles/Vol] 3.6 mmol/L Normal 3.5-5.3 [facility] Comment on above: Performed By: #### 2 736464 #### [facility] Laboratory [address] [place] [address] Sodium [Moles/Vol] 135 mmol/L Normal 135-145 [facility] Comment on above: Performed By: #### 2 656709 #### [facility] Laboratory [address] [place] [address] Urea nitrogen [Mass/Vol] 5 mg/dL Normal 5-21 [facility] Comment on above: Performed By: #### 2 559505 #### [facility] Laboratory [address] [place] [address] Urea nitrogen/Creatinine [Mass ratio] 10 No Units Normal 10-20 [facility] Comment on above: Performed By: #### 2 689559 #### [facility] Laboratory [address] [place] [address] CBC w/ Auto Diffon 3 Erythrocyte distribution width (RBC) [Ratio] 13.6 % Normal 10.9-14.2 [facility] Comment on above: Performed By: #### 2 417807 #### [facility] Laboratory [address] [place] [address] Hematocrit (Bld) [Volume fraction] 34.1 % Normal 34.0-46.0 [facility] Comment on above: Performed By: #### 2 903551 #### [facility] Laboratory [address] [place] [address] Hemoglobin (Bld) [Mass/Vol] 11.3 g/dL Low 12.0-16.0 [facility] Comment on above: Performed By: #### 2 480645 #### [facility] Laboratory [address] [place] [address] MCH (RBC) [Entitic mass] 30.3 pg Normal 27.0-34.0 [facility] Comment on above: Performed By: #### 2 013780 #### [facility] Laboratory [address] [place] [address] MCHC (RBC) [Mass/Vol] 33.2 g/dL Normal 31.4-36.0 [facility] Comment on above: Performed By: #### 2 980462 #### [facility] Laboratory [address] [place] [address] MCV (RBC) [Entitic vol] 91.3 fL Normal 80.0-100.[address] [facility] Comment on above: Performed By: #### 2 586702 #### [facility] Laboratory [address] [place] [address] Platelet mean volume (Bld) [Entitic vol] 8.9 fL Normal 6.4-10.8 [facility] Comment on above: Performed By: #### 2 454975 #### [facility] Laboratory [address] [place] [address] Platelets (Bld) [#/Vol] 146.0 E9/L Low 150.0-500.0 [facility] Comment on above: Performed By: #### 2 366689 #### [facility] Laboratory [address] [place] [address] RBC (Bld) [#/Vol] 3.7 E12/L Low 4.3-5.9 [facility] Comment on above: Performed By: #### 2 877275 #### [facility] Laboratory [address] [place] [address] WBC corrected for nucl RBC Auto (Bld) [#/Vol] 16.3 E9/L High 4.0-11.0 [facility] Comment on above: Performed By: #### 2 978648 #### [facility] Laboratory [address] [place] [address] CHEMISTRYOrdered By: SYSTEM SYSTEM on 10-19-2022 Anion gap [Moles/Vol] 10 mmol/L Normal 6 - 16 mEq/L F C Remisol Calcium [Mass/Vol] 8.0 mg/dL Low 8.9 - 11. 1 mg/dL [facility] Remisol Chloride [Moles/Vol] 106 mmol/L Normal 101 - 1 11 mmol/L [facility] Remisol CO2 [Moles/Vol] 23 mmol/L Normal 21 - 31 mmol/L [facility] Remisol Creatinine [Mass/Vol] 0.5 mg/dL Normal 0.5 - 1.3 mg/dL FT Remisol GFR/1.73 sq M.predicted among non-blacks MDRD (S/P/Bld) [Vol rate/Area] 138 mL/min/1.73 m2 Normal >=59mL/min/1 .73 m2 [facility] S Glucose [Mass/Vol] 82 mg/dL Normal [...] Pending Diagnostic Test Results None Pharmacy Information [facility] [place] New Follow Up Appointments after Discharge Follow Up with Sahil Butler MD When: Within 2 weeks Where: [address] [place] [address] [phone] Follow Up with Roslyn Valdes MD, [facility], MED When: Within 2 to 4 days Where: [phone] Medications What How Much When Instructions Next Dose New cephalexin (Keflex 500 mg Cap) 1 Capsules By Mouth Every 6 hours Duration: 4 Days Pickup at [facility] Pharmacy Information [facility]: [address] [place], [place] [id number] [phone] What How Much When Comments Stop Taking [...] condition include: (more content not included)... Normal [facility] ED Clinical Summaryon 2022 ED Clinical Summary [place] [id number] ED Clinical Summary Person Information [facility] Age: 22 Years : 2000 Sex: Female Language: Yi PCP: Roslyn Valdes MD Marital Status: Visit [...] 10/18/2022 22:10:25 10/18/2022 22:10:25 10/18/2022 22:10:25 ADDRESS: [address] [place] [phone] PHYS DOC NOTES: MEDICAL INFORMATION: Prescriptions Given: Medications to Continue with No Changes Other Medications ibuprofen (ibuprofen 400 mg Tab) 1 Tablets By Mouth every 6 hours as needed for pain. Refills: 0. PATIENT EDUCATION INFORMATION: Instructions: Follow up: DIAGNOSIS: 1:Near syncope; 2:UTI (urinary tract infection); 3:Hypokalemia; Elevated troponin Normal [facility] ED Patient Education Noteon 10-19-2022 ED Patient Education Note Normal [facility] ED Patient Summaryon 023 ED Patient Summary [address] [address] Patient Discharge Instructions Person Information Name: SIDNEY CANDELARIO Age: 22 Years Arrival Date: 10/18/2022 13:27:27 Discharge Diagnosis: 1:Near syncope; 2:UTI (urinary tract infection); 3:Hypokalemia; Elevated troponin Primary Care Physician: Roslyn Valdes MD Provider Information Primary Provider: Favian Ahumada DO Advanced Health Clinician:None The exam and treatment you received in the Emergency Department were for an urgent problem and are not intended as complete care. It is important that you follow up with a doctor, nurse practitioner, or physician?s physiotherapy assistant for ongoing care. If your symptoms [...] opioids can be used to help relieve kpvfgnbf-yo-jadnal pain and are often prescribed following a [...] be struggling with addiction, tell your health healthcare economics manager and ask for guidance or call [facility]?S National Helpline at 7-879-514-TWCQ. f Source: [place] Department of Health and Human Services/Center for Disease Control & Prevention [facility] (more content not included)... Normal [facility] HEMATOLOGYOrdered By: SYSTEM SYSTEM on 10-19-2022 Basophils/100 [...] Inpatient Clinical Summaryon 10-19-2022 Inpatient Clinical Summary [place] [address] Clinical Summary Person Information: Name: SIDNEY CANDELARIO Age: 22 Years : 2000 Sex: Female PCP: Roslyn Valdes MD Marital Status: Race: White Ethnicity: Non- or Language: Yi Visit Id: Visit Reason: Dizziness; UTI, NEAR SYNCOPE, HYPOKALEMIA Speciality: Acuity: Enc Type: Observation Med Service: Medical Arrival: 10/18/2022 13:27:27 Discharge: Dispo Type: Address: [address] [place] [phone] Provider Notes: Diagnosis: 1:Near syncope; 2:UTI (urinary [...] up: With: Address: When: Roslyn Valdes MD, [facility] [phone] Within 2 to 4 days Patient Education Information: Normal [facility] Inpatient Patient Summaryon 10-19-2022 Inpatient Patient Summary [place] [id number] Patient Discharge Instructions PERSON INFORMATION Name: SIDNEY CANDELARIO Date of : 2000 Current Date: 10/19/2022 09:40:25 PHYSICIANS Admitting Physician: Jona Amaral MD Primary Care Physician: Roslyn Valdes MD PCP Phone Number: [phone] Comment: Discharge Diagnosis: 1:Near syncope; 2:UTI (urinary [...] up: With: Address: When: Roslyn Valdes MD, [facility], [facility] [phone] Within 2 to 4 days In the event that this physician does not participate in your insurance network, please consult with your insurance company to find a nearby participating provider. Comment: KODAK Spencer TAYLOR LEE, have received the attached patient education materials/instructio [...] needed for pain. Refills: 0. [facility] [place] Comment: PATIENT EDUCATION INFORMATION Instructions: Medication Leaflets: You may receive a survey from [employer] asking you to rate your care experience. Your feedback is important and will help us understand what we do well and how we can improve the quality of care we provide to you, your loved ones and our community. It?s an honor to serve you. Thank you for choosing [facility] Normal [facility] Interdisciplinary Note - Christ e Manageron 10-19-2022 Interdisciplinary Note - Manager Functional Pt is awake and alert in bed, previously rounded with Dr. Amaral. Spouse at bedside, Pt is aware of plan for scan today and plan to DC home later today. Declines any concerns or DC needs. Observation status reviewed. PCP verified and insurance information reviewed and DME discussed. Contact information provided and white board updated. Normal [facility] Comment on above: Result Comment: Elec tronically Signed By: Heraclio GRAFF, Sayda\.br\Date and Time Signed: 10/19/22 11:06 EDT Magnesiumon 10-19-2022 Magnesium [Mass/Vol] 1.7 mg/dL Normal 1.3-2.4 [facility] Comment on above: Performed By: #### 2 [id number] #### [facility] Laboratory [address] [place] [address] Monitor Recordon 10-19-2022 Monitor Record [id number]#1.00CD:127 Normal [facility] Monitor Record [id number]#1.00CD:127 Normal [facility] Monitor Record [id number]#1.00CD:127 Normal [facility] Monitor Record [id number]#1.00CD:127 Normal [facility] Patient Education - Texton 0 10-19-2022 Patient [...] these instructions at home: Medicines ? Take qfsf-mve-ntxnsyl and prescription medicines only as told by [...] provider. Document Revised: 10/05/2021 Document Reviewed: 10/05/2021 [employer] Patient Education ? 2022 [employer]. Obstetrics and Gynecology Urinary Tract Infection, Adult [...] (neurogenic bladder). (more content not included)... Normal [facility] Phosphoruson 10-19-2022 Phosphate [Mass/Vol] 3.8 mg/dL Normal 1.9-4.6 [facility] Comment on above: Performed By: #### 2 192592 #### [facility] Laboratory [address] [place] [address] Progress Note-Physicianon Progress Note-Physician Basic Informatio n [...] drug abuse. ED physician discussed case with distance learning program coordinator Dr. Butler and AWNING HANGER Dr. Mortensen. Telemetry monitoring and echocardiogram was [...] made to ensure accuracy, however, inadvertently computerized field case manager mistakes may be present. Dr. Jona Amaral Hospitalist Subjective No major overnight events. No [...] Lymph Auto: 12.3 % Low (10/19/22 05:47:00) Dundy Auto: 8.5 % (10/19/22 05:47:00) Eos Auto: 0.6 % (10/19/22 05:47:00) Basophil Auto: 0.4 % (10/19/22 05:47:00) Neutro Absolute: 12.7 E9/L High (10/19/22 05:47:00) Lymph Absolute: 2 E9/L (10/19/22 05:47:00) Dundy Absolute: 1.4 E9/L High (10/19/22 05:47:00) Eos [...] 05:47:00) Magnesium (more content not included)... Normal [facility] Comment on above: Result Comment: Elec tronically Signed By: Cristin MOSS, Jona Rivera\.br\Date and Time Signed: 10/19/22 12:08 EDT Troponin 9 Hr.on 10-19-2022 Troponin I.cardiac [Mass/Vol] 48.10 pg/mL Abnormal 10.10-27.10 [facility] Comment on above: Order Comment: pt is not discharged despite the discharge status. pt is in room 302; third shift phleb was notified not to cancel pending orders. [id number] 10/18/2022 22:15:32 EDT Result Comment: Crit ical [...] Carlos, January 2018) Performed By: #### 1 [id number] #### [facility] Laboratory [address] [place] [address] eGFRon 10-19-2022 GFR/1.73 sq M.predicted among non-blacks MDRD (S/P/Bld) [Vol rate/Area] 138 mL/min/1.73 m2 Normal >=59 [facility] Comment on above: Order Comment: Order added by Discern Expert. 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 Kidney failure is indicated at less than 15 mL/min/1.73m2. Performed By: #### 2 942863 #### [facility] Laboratory [address] [place] [address] Acetamnphn Lvlon 10-18-2022 Acetaminophen [Mass/Vol] ug/mL Low 15-30 [facility] Comment on above: Performed By: #### 1 [id number], 3763960, 2847590, 04047460, 0688545, 87344373, 28204072, 7004330, 0477097 ####[facility] [address] [place] [address] Auto Diffon 10-18-2022 Basophils/100 WBC (Bld) 0.6 % Normal 0.0-2.[address] [facility] Comment on above: Order Comment: Order Added by Discern Expert. Performed By: #### 1 1597146, 5335492, 2462081, 83667026, 1815002, 49845043, 32070791, 1168531, 0936264 ####[facility] [address] [place] [address] Basophils/Leukocytes Auto (Bld) [Pure # fraction] 0.1 E9/L Normal 0.0-0.2 [facility] Comment on above: Order Comment: Order Added by Discern Expert. Performed By: #### 1 2255946, 6702206, 4363999, 00608963, 3662913, 71698278, 58329490, 8133560, 8911053 ####[facility] [address] [place] [address] Eosinophils/100 WBC (Bld) 0.5 % Normal 0.0-8.0 [facility] Comment on above: Order Comment: Order Added by Discern Expert. Performed By: #### 1 6131598, 5276022, 6976096, 63937137, 0521756, 61206909, 34704190, 1242856, 5410548 ####[facility] [address] [place] [address] Eosinophils/Leukocytes Auto (Bld) [Pure # fraction] 0.1 E9/L Normal 0.0-0.5 [facility] Comment on above: Order Comment: Order Added by Discern Expert. Performed By: #### 1 4409823, 4583941, 3381221, 51064658, 0728404, 57519861, 17554349, 7507233, 0571851 ####[address] [address] Lymphocytes/100 WBC (Bld) 11.2 % Low 14.0-50.0 [facility] Comment on above: Order Comment: Order Added by Discern Expert. Performed By: #### 1 6340310, 8929040, 6117666, 16682700, 0929156, 58712846, 60032985, 1004684, 2919110 ####[address] [address] Lymphocytes/Leukocytes Auto (Bld) [Pure # fraction] 1.8 E9/L Normal 1.0-4.0 [facility] Comment on above: Order Comment: Order Added by Discern Expert. Performed By: #### 1 9634774, 9760095, 8708968, 46219706, 5615114, 30119596, 60918205, 9035471, 3000084 ####[address] [address] Monocytes/100 WBC (Bld) 8.3 % Normal 4.0-14.0 [facility] Comment on above: Order Comment: Order Added by Discern Expert. Performed By: #### 1 9221289, 3998490, 7159999, 43122995, 5381739, 95074122, 28333858, 2604713, 4504913 ####[address] [address] Monocytes/Leukocytes Auto (Bld) [Pure # fraction] 1.3 E9/L High 0.2-1.0 [facility] Comment on above: Order Comment: Order Added by Discern Expert. Performed By: #### 1 4620907, 0804410, 0473538, 47261137, 9310937, 78319750, 52834518, 4791148, 7000319 ####[facility] [address] [place] [address] Neutrophils/100 WBC (Bld) 79.4 % High 36.0-75.0 [facility] Comment on above: Order Comment: Order Added by Discern Expert. Performed By: #### 1 6001628, 3718713, 4007081, 72284380, 5997194, 36374275, 02980861, 1058766, 3438147 ####[facility] [address] [place] [address] Neutrophils/Leukocytes Auto (Bld) [Pure # fraction] 12.5 E9/L High 2.0-7.5 [facility] Comment on above: Order Comment: Order Added by Discern Expert. Performed By: #### 1 4210474, 1607526, 6716869, 60289871, 9856029, 85711881, 83638704, 9717693, 4365268 ####[facility] [address] [place] [address] [facility] 10-18-2022 Creatinine [Mass/Vol] 0.5 mg/dL Normal 0.5-1.3 [facility] Comment on above: Performed By: #### 1 5757307, 7936654, 8267481, 49341569, 6166035, 03221398, 59273242, 7358534, 7731759 #### [facility] Laboratory [address] [place] [address] Urea nitrogen [Mass/Vol] 7 mg/dL Normal 5-21 [facility] Comment on above: Performed By: #### 1 0544670, 7019233, 7827195, 10601338, 6198899, 48037011, 45673023, 2194721, 4897447 #### [facility] Laboratory [address] [place] [address] Urea nitrogen/Creatinine [Mass ratio] 14 No Units Normal 10-20 [facility] Comment on above: Performed By: #### 1 4001003, 0838452, 4141061, 66657734, 5160436, 63305342, 10669482, 0933606, 9151283 #### [facility] Laboratory [address] [place] [address] Anion gap [Moles/Vol] 11 mmol/L Normal 6-16 [facility] Comment on above: Performed By: #### 1 8984904, 1783589, 0024496, 46416198, 5704687, 61565704, 59105982, 3708481, 7617170 #### [facility] Laboratory [address] [place] [address] Calcium [Mass/Vol] 8.7 mg/dL Low 8.9-11.1 [facility] Comment on above: Performed By: #### 1 3030747, 7545947, 5278992, 55238461, 7363053, 97636706, 50505246, 9710831, 4305323 #### [facility] Laboratory [address] [place] [address] Chloride [Moles/Vol] 102 mmol/L Normal 101-111 [facility] Comment on above: Performed By: #### 1 9868877, 1113452, 3675707, 55574035, 5261783, 98208641, 32748509, 9579475, 4053401 #### [facility] Laboratory [address] [place] [address] CO2 [Moles/Vol] 26 mmol/L Normal 21-31 [facility] Comment on above: Performed By: #### 1 3901724, 3640561, 0526506, 97846423, 6419050, 63361099, 41392826, 1461255, 3217197 #### [facility] Laboratory [address] [place] [address] Glucose [Mass/Vol] 97 mg/dL Normal 55-199 [facility] Comment on above: Result Comment: If t his glucose result represents a fasting glucose, interpretation should refer to the following reference range: 55-99 mg/dL Performed By: #### 1 6155777, 0148028, 8434298, 14342469, 1732508, 03671542, 09610717, 6142871, 9289027 #### [facility] Laboratory [address] [place] [address] Potassium [Moles/Vol] 3.3 mmol/L Low 3.5-5.3 [facility] Comment on above: Performed By: #### 1 0131368, 7337952, 2420344, 15001530, 3991148, 54053654, 87531459, 9565548, 5846612 #### [facility] Laboratory [address] [place] [address] Sodium [Moles/Vol] 136 mmol/L Normal 135-145 [facility] Comment on above: Performed By: #### 1 9034444, 2546879, 5363586, 24518132, 8262519, 72936358, 72593691, 5019563, 3789888 #### [facility] Laboratory [address] [address] CBC w/ Auto Diffon 3 Erythrocyte distribution width (RBC) [Ratio] 13.8 % Normal 10.9-14.2 [facility] Comment on above: Performed By: #### 1 6700952, 6995626, 8755320, 40164181, 1890293, 16501192, 08702889, 9143873, 6015372 #### [facility] Laboratory [address] [place] [address] Hematocrit (Bld) [Volume fraction] 37.4 % Normal 34.0-46.0 [facility] Comment on above: Performed By: #### 1 6869279, 4845128, 8211123, 77945503, 1417644, 67031446, 83204266, 3397765, 6214345 #### [facility] Laboratory [address] [place] [address] Hemoglobin (Bld) [Mass/Vol] 12.5 g/dL Normal 12.0-16.0 [facility] Comment on above: Performed By: #### 1 9628899, 5281431, 8064126, 65500016, 9999017, 49337994, 31236887, 6237548, 8787037 #### [facility] Laboratory [address] [address] MCH (RBC) [Entitic mass] 30.1 pg Normal 27.0-34.0 [facility] Comment on above: Performed By: #### 1 0888793, 9377228, 5785034, 91291068, 0977845, 93294265, 49668074, 6311705, 9137302 #### [facility] Laboratory [address] [place] [address] MCHC (RBC) [Mass/Vol] 33.6 g/dL Normal 31.4-36.0 [facility] Comment on above: Performed By: #### 1 8187064, 2308644, 4800201, 61585701, 2029936, 30672873, 63947004, 4153420, 7491972 #### [facility] Laboratory [address] [place] [address] MCV (RBC) [Entitic vol] 89.7 fL Normal 80.0-100.[address] [facility] Comment on above: Performed By: #### 1 3307504, 3204876, 8113537, 76765215, 2603452, 04575430, 95617452, 1771509, 0243965 #### [facility] Laboratory [address] [address] Platelet mean volume (Bld) [Entitic vol] 9.2 fL Normal 6.4-10.8 [facility] Comment on above: Performed By: #### 1 8069043, 8493546, 2779700, 11657669, 1884298, 38454892, 45699010, 1847110, 5056754 #### [facility] Laboratory [address] [place] [address] Platelets (Bld) [#/Vol] 146.0 E9/L Low 150.0-500.0 [facility] Comment on above: Performed By: #### 1 1073332, 9854397, 1037900, 56614985, 7615029, 94072014, 77502716, 1768905, 3358345 #### [facility] Laboratory [address] [place] [address] RBC (Bld) [#/Vol] 4.2 E12/L Low 4.3-5.9 [facility] Comment on above: Performed By: #### 1 7884128, 1345901, 1056929, 42683386, 3304285, 43674484, 04484692, 8419539, 1630580 #### [facility] Laboratory [address] [place] [address] WBC corrected for nucl RBC Auto (Bld) [#/Vol] 15.8 E9/L High 4.0-11.0 [facility] Comment on above: Result Comment: Slid e reviewed by 10/18/2022 15:09:43 EDT. Performed By: #### 1 4503255, 9897463, 1242731, 64122230, 1198086, 49638190, 60553459, 0770920, 4786099 #### [facility] Laboratory [address] [place] [address] CHEMISTRYOrdered By: SYSTEM SYSTEM on 10-18-2022 Ethanol [...] Negative [facility] Remisol Cocaine Ql (U) Negative (5/11/23 1:37 PM) Normal Negative [facility] Remisol Opiates [...] Treatmenton 10-08 Consent for Treatment [id number] #1.00CD:127 Normal [facility] ED Note-Physicianon 10-19-19 ED Note-Physician Basic Information [...] patient assessment and treatment. Medical Decision Making [facility] Data External documents reviewed: Not applicable My EKG interpretation: As below My CT interpretation: Not applicable My X-ray interpretation: As below My Ultrasound interpretation: Not applicable Decision rules/scores evaluated: Not applicable Discussed with: Dr. Mortensen, AWNING HANGER. Dr. Butler, cardiology. Dr. Calhoun, Hospitalist. Treatment [...] tachycardia. I will call and discuss with AWNING HANGER and cardiology. (more content not included)... Normal [facility] Comment on above: Result Comment: Elec tronically Signed By: Favian Ahumada DO\.br\Date and Time Signed: 10/18/22 19:58 EDT Ethanolon 10-18-2022 Ethanol [Mass/Vol] mg/dL Normal <=7 [facility] Comment on above: Performed By: #### 2 762606 ####[facility] [address] [place] [address] HEMATOLOGYOrdered By: SYSTEM SYSTEM on 10-18-2022 Basophils/100 [...] HemeAutoSS Comment on above: Result Comment: Bhargav jake reviewed by [place]GO 10/18/2022 15:09:43 EDT. Laboratory - Microbiology an d Antimicrobial susceptibilityOrdered By: Nyla Rajan on 10-18-2022 Bacteria identified Cx Nom (U) 100 cfu/ml Mixed skin contaminants [facility] Monitor Recordon 10-18-2022 Monitor Record [id number] 0#1.00CD:127 Normal [facility] Monitor Record [id number]#1.00CD:127 Normal [facility] Monitor Record [id number]#1.00CD:127 Normal [facility] PT & PTTon 10-18-2022 aPTT Coag (PPP) [Time] 25.8 second(s) Normal 25.1-36.5 [facility] Comment on above: Result Comment: Para meter [...] - 109.0 sec. Performed By: #### 1 5192846, 5058534, 2117696, 49887778, 3420785, 20603952, 52861766, 3797688, 5386693 #### [facility] Laboratory [address] [place] [address] INR Coag (PPP) [Relative time] 1.0 {INR} Invalid Interpretation Code [facility] Comment on above: Result Comment: INR results are specifically intended to assess patients stabilized on long-term Anticoagulation therapy suggested INR?s ?Less Intensive Anticoagulation? 2.0 ? 3.0 Conventional Range 3.0 ? 4.5 Performed By: #### 1 8070848, 7338349, 0012205, 14303582, 4071220, 80874734, 75671122, 1132308, 3674253 #### [facility] Laboratory [address] [place] [address] PT Coag (PPP) [Time] 10.8 second(s) Normal 9.4-12.5 [facility] Comment on above: Result Comment: 15 d [...] no normal ranges. Performed By: #### 1 0059974, 2062996, 0578102, 08069283, 2437652, 39708718, 44031100, 7664292, 4967078 #### [facility] Laboratory [address] [place] [address] Progress Note-Nurseon 2022 Progress Note-Nurse Patient: SIDNEY CANDELARIO Age: 22 years Sex: Female : 2000 Associated Diagnoses: None Author: Mell GRAFF, Meghna 25 week GI P0 in ER. heart tracing times 10 minutes obtained. Baseline 150bpm, moderate variability with accelerations increasing to 160. Audible movement. Pt states she can feel movement. Normal [facility] Salicylateon 10-18-2022 Salicylates [Mass/Vol] mg/dL Low 6-29 [facility] Comment on above: Performed By: #### 1 2531289, 9778845, 5758769, 87829266, 1919205, 93015513, 18238685, 8235825, 4417519 ####[facility] [address] [place] [address] TSH With T4fr Reflexon 10-18 TSH Qn 1.50 m[IU]/L Normal 0.34-5.60 [facility] Comment on above: Performed By: #### 1 3218008, 9679679, 5420009, 29286536, 1970195, 52352615, 55922328, 4677323, 3975612 ####[facility] [address] [place] [address] Troponinon 10-18-2022 Troponin I.cardiac [Mass/Vol] 47.10 pg/mL Abnormal 10.10-27.10 [facility] Comment on above: Result Comment: Crit ical [...] Sensitivity Troponin I Instructions For Use, [facility] [place], January 2018) Performed By: #### 2 984622 #### [facility] Laboratory [address] [place] [address] Troponin 0 Hr.on 10-18-2022 Troponin I.cardiac [Mass/Vol] 42.20 pg/mL Abnormal 10.10-27.10 [facility] Comment on above: Result Comment: Crit ical [...] conjunction with clinical conditions of myocardial infarction. ([employer] High Sensitivity Troponin I Instructions For Use, [employer], January 2018) Performed By: #### 1 1633531, 6872288, 7681426, 07752411, 1588246, 02934629, 26650523, 3904475, 9018332 ####[facility] [address] [place] [address] Troponin 3 Hr.on 10-18-2022 Troponin I.cardiac [Mass/Vol] 49.60 pg/mL Abnormal 10.10-27.10 [facility] Comment on above: Result Comment: Crit ical [...] conjunction with clinical conditions of myocardial infarction. ([employer] High Sensitivity Troponin I Instructions For Use, [employer], January 2018) Performed By: #### 1 5843661 #### [facility] Laboratory [address] [place] [address] Troponin 6 Hr.on 10-18-2022 Troponin I.cardiac [Mass/Vol] 53.00 pg/mL Abnormal 10.10-27.10 [facility] Comment on above: Result Comment: Crit ical [...] Sensitivity Troponin I Instructions For Use, [employer] [place], January 2018) Performed By: #### 1 7212399 #### [facility] Laboratory [address] [place] [address] U Drug Screenon 10-18-2022 Amphetamines Screen method >1000 ng/mL Ql (U) Negative Normal Negative [facility] Comment on above: Result Comment: Nega tive Cutoff: <1000 ng/mL Performed By: #### 2 873150, 8762192, 72986323 ####[facility] [address] [place] [address] Barbiturates Screen Ql (U) Negative Normal Negative [facility] Comment on above: Result Comment: Nega tive Cutoff: <200 ng/mL Performed By: #### 2 743086, 1055206, 68361686 ####[facility] [address] [place] [address] Benzodiazepines Ql (U) Negative Normal Negative [facility] Comment on above: Result Comment: Nega tive Cutoff: <200 ng/mL Performed By: #### 2 002634, 1884502, 76958611 ####[facility] [address] [place] [address] Cocaine Ql (U) Negative Normal Negative [facility] Comment on above: Result Comment: Nega tive Cutoff: <300 ng/mL Performed By: #### 2 008698, 2420191, 07634610 ####[facility] [address] [place] [address] Opiates Screen Ql (U) Negative Normal Negative [facility] Comment on above: Result Comment: Nega tive Cutoff: <300 ng/mL Performed By: #### 2 689962, 3927122, 07596661 ####[facility] [address] [place] [address] Phencyclidine Screen method >25 ng/mL Ql (U) Negative Normal Negative [facility] Comment on above: Result Comment: Nega tive Cutoff: <25 ng/mL These drug screen results are to be used for medical (i.e., treatment) purposes only. Unconfirmed drug screening results must not be used for non-medical purposes (e.g., employment testing, legal testing). Performed By: #### 2 849103, 3410952, 26301488 ####[facility] [address] [place] [address] Tetrahydrocannabinol Screen method >50 ng/mL Ql (U) Negative Normal Negative [facility] Comment on above: Result Comment: Nega tive Cutoff: <50 ng/mL Performed By: #### 2 505438, 0380998, 36329718 ####[address] [place] [address] UA With Cult Reflexon 2022 Bacteria LM Ql (Urine sed) 2+ /HPF Abnormal Trace [facility] Comment on above: Performed By: #### 2 428328, 2712746, 13332511 ####[facility] [address] [place] [address] Bilirubin Ql (U) Negative Normal Negative [facility] Comment on above: Performed By: #### 2 547582, 7585738, 62758239 ####[facility] [address] [place] [address] Clarity (U) SL CLOUDY Abnormal Clear [facility] Comment on above: Performed By: #### 2 503460, 1904934, 63448848 ####[facility] [address] [place] [address] Color (U) YELLOW Normal Yellow [facility] Comment on above: Performed By: #### 2 907403, 4971380, 55774367 ####[facility] [address] [place] [address] Epithelial cells.squamous LM.HPF (Urine sed) [#/Area] /[HPF] Normal 0-2 [facility] Comment on above: Performed By: #### 2 502548, 4153307, 59729734 ####[facility] [address] [place] [address] Glucose Test strip (U) [Mass/Vol] Negative Normal Negative [facility] Comment on above: Performed By: #### 2 561576, 2804815, 56943924 ####[facility] [address] [place] [address] Hemoglobin Ql (U) Negative Normal Negative [facility] Comment on above: Performed By: #### 2 183193, 7139321, 82850997 ####[address] [address] Ketones (U) [Mass/Vol] Negative Normal Negative [facility] Comment on above: Performed By: #### 2 827733, 7357511, 88568827 ####[address] [address] [place].plasma/[place].R BC (Bld) [Mass ratio] 4-20 Normal 0-3 [facility] Comment on above: Performed By: #### 2 904867, 7799177, 77628370 ####[address] [address] Nitrite Ql (U) Negative Normal Negative [facility] Comment on above: Performed By: #### 2 640109, 3296719, 82126337 ####[address] [address] pH (U) 6.5 [pH] Invalid Interpretation Code 5.0-9.0 [facility] Comment on above: Performed By: #### 2 144417, 3288839, 96817585 ####[address] [place] [address] Protein (U) [Mass/Vol] Negative Normal Negative [facility] Comment on above: Performed By: #### 2 130070, 9929242, 94949937 ####[address] [address] Specific gravity (U) [Rel density] 1.015 Invalid Interpretation Code 1.005-1.030 [facility] Comment on above: Performed By: #### 2 050800, 8586902, 27996638 ####[facility] [address] [place] [address] Type of Urine collection method Clean Catch Normal [facility] Comment on above: Performed By: #### 2 896110, 7152585, 78170869 ####[facility] [address] [place], [place] [address] Urobilinogen Qn (U) 0.2 {Yg'U}/dL Normal 0.0-1.0 [facility] Comment on above: Performed By: #### 2 908125, 2392482, 32537416 ####[facility] [address] [place] [address] WBC Auto Ql (U) 1+ Abnormal Negative [facility] Comment on above: Performed By: #### 2 513301, 4924581, 10083179 ####[facility] [address] [place] [address] WBC LM.HPF (Urine sed) [#/Area] 16-25 Abnormal 0-5 [facility] Comment on above: Performed By: #### 2 693729, 4525737, 39607069 ####[facility] [address] [place], [place] [address] URINALYSISOrdered By: Citlali [place] on 10-18-2022 Bacteria [...] PM) Normal Negative [facility] UA Auto SS [place].plasma/[place].R BC (Bld) [Mass ratio] 4-20 /HPF Normal [...] Desc Clean Catch (10/18/22 1:37 PM) Normal [facility] UA Auto SS Urobilinogen Qn (U) 0.0455051 {Yg'U}/dL Normal 0.0 - 1.0 EU/dL [facility] UA Auto SS WBC Auto Ql (U) 1+ *ABN* (10/18/22 1:37 PM) Invalid Interpretation Code Negative [facility] UA Auto SS WBC LM.HPF (Urine sed) [#/Area] 16-25 /HPF Invalid Interpretation Code 0-5/HPF [facility] UA Auto SS XR Chest Single Viewon [...] Ahumada FINAL REPORT Dictated: 10/18/2022 3:07 pm Tello Napoleon MOSS V. Signed (Electronic Signature): 10/18/2022 3:07 pm Signed by: Napoleon Tello MD, V. Transcribed by: FELI Technologist: HARPREET Technical Comments Radiation Dose: Ka,r in mGy = na DAP = na Normal [facility] eGFRon 10-18-2022 GFR/1.73 sq M.predicted among non-blacks MDRD (S/P/Bld) [Vol rate/Area] 138 mL/min/1.73 m2 Normal >=59 [facility] Comment on above: Order Comment: Order added by Discern Expert. 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 Kidney failure is indicated at less than 15 mL/min/1.73m2. Performed By: #### 1 9910750, 9662460, 8536546, 28512173, 3449981, 30081177, 45566320, 9395104, 1203773 #### [facility] Laboratory [address] [place] [address] US PREG ANATOMY SINGLEon US PREG ANATOMY [...] CAMELIA MENDEZ Date: 2022-10-08 15:26 Normal [facility] CHLAMYDIA/GONOCOCCUS TETO (SW AB/URINE/PAPon 08-28-2022 Chlamydia trachomatis, TETO Negative Normal Negative [facility] Comment on above: Performed By: #### C T/NGNA #### [facility] Laboratory [address] [place] [address] Dr. Maribell Perea Neisseria gonorrhoeae, TETO Negative Normal Negative [facility] Comment on above: Performed By: #### C T/NGNA #### [facility] Laboratory [address] [address] [address] Maribell Perea VAGINITIS/VAGINOSIS DNA PROB Romeo 08-25-2022 Beatrice species Negative Normal Negative [facility] Comment on above: Performed By: #### V AGINT ####[facility] [address] [place] [address]Dr. Maribell Perea Gardnerella vaginalis Negative Normal Negative [facility] Comment on above: Performed By: #### V AGINT ####[facility] [address] [address]DrJose Perea Trichomonas vaginalis Negative Normal Negative [facility] Comment on above: Performed By: #### V AGINT ####[facility] [address] [place] [address]Dr. Maribell Perea HEP B SURFACE ANTIGEN SCREEN on 07-25-2022 HBsAg Screen Negative Normal Negative [facility] Comment on above: Performed By: #### H BSANS #### [facility] Laboratory [address] [address] [address] Maribell Perea HEPATITIS C VIRUS AB W/ REFL EX QUANTon 07-25-2022 HCV AB Non-Reactive Normal Non Reactive [facility] Comment on above: Performed By: #### H CVPCRR #### [facility] Laboratory [address] [place] [address] Dr. Maribell Perea Interpretation: Comment Normal [facility] Comment on above: Result Comment: Not infected with HCV unless early or acute infection is suspected (which may be delayed in an immunocompromised individual), or other evidence exists to indicate HCV infection. Performed By: #### H CVPCRR #### [facility] Laboratory [address] [place] [address] Dr. Maribell Perea HIV 1 AND 2 WITH REFLEXon HIV Screen 4th Generation wRfx Non-Reactive Normal Non Reactive [facility] Comment on above: Result Comment: HIV Negative HIV-1/HIV-2 antibodies and HIV-1 p24 antigen were NOT detected. There is no laboratory evidence of HIV infection. Performed By: #### H IV12 #### [facility] [address] [place] [address] Dr. Maribell Perea RPR QUANTon 07-25-2022 Rapid Plasma Reagin, Quant Non-Reactive Normal NonRea<1:1 [facility] Comment on above: Result Comment: Pledaa jeter Note: This test does not meet current guidelines for screening and diagnosis of syphilis. This test is intended for following treatment response in patients being treated for syphilis infection. To screen for syphilis infection, a reflex cascade that includes both RPR and a treponema-specific assay should be utilized, such as Treponema pallidum (Syphilis) Screening [place] (972496) or Rapid Plasma Reagin (RPR) Test With Reflex to Quantitative RPR and Confirmatory Treponema pallidum Antibodies (143470). Performed By: #### R PRQ #### [facility] [address] [place] [address] Dr. Maribell Perea RUBELLA AB IGGon 07-25-2022 Rubella Antibodies, IgG <0.90 Critically low Immune > 0.99 [facility] Comment on above: Result Comment: Non- immune <0.90 Equivocal 0.90 - 0.99 Immune >0.99 Performed By: #### R UBIGG #### [facility] [address] [address] [address] Maribell Perea CULTURE URINEon 07-23-2022 CULTURE URINE Culture Observations: NO GROWTH. Normal [facility] Comment on above: Performed By: #### U RCX ####[facility] [address] [address]Dr. Maribell Perea GLYCOHEMOGLOBIN A1Con 2022 ADA RECOMMENDATION SEE BELOW Normal [facility] Comment on above: Result Comment: ADA RECOMMENDED LIMIT 4.0 - 6.0 ADA THERAPEUTIC TARGET < 7.0 ACTION SUGGESTED > 7.0 Performed By: #### A 1C #### [facility] [address] [address] [address] Maribell Perea Glucose [Mass/Vol] 97 mg/dL Normal [facility] Comment on above: Performed By: #### A 1C #### [facility] [address] [place] [address] Dr. Maribell Perea HbA1c (Bld) [Mass fraction] 5.0 % Normal 4.5-6.2 [facility] Comment on above: Performed By: #### A 1C #### [facility] [address] [address] [address] Maribell Perea BEULAH BOX TEST PT SEND OUTo n 07-23-2022 SENT TO REF LAB 07/23/2022 Normal [facility] Comment on above: Performed By: #### N BOX #### [facility] [address] [address] [address] Maribell Perea TYPE AND SCREENon 07-23-2022 TYPE AND SCREEN Negative Normal [facility] Comment on above: Performed By: #### T NS ####[facility] [id number] [address]Dr. Maribell Perea US PREG TVon 06-28-2022 US [...] by: CAMELIA MENDEZ Date: 2022-06-28 09:[address] [facility] Vital Signs Date Time Vital Sign Value Performing Clinician Facility 06-18-2023 15:11-0500 Blood Pressure Location [facility] 06-18-2023 15:11-0500 Body temperature 97.88 [degF] [facility] 06-18-2023 15:11-0500 Diastolic blood pressure 76 mm[Hg] [facility] 06-18-2023 15:11-0500 Heart rate 90 /min [facility] 06-18-2023 15:11-0500 SaO2% (BldA) [Mass fraction] 98 % [facility] 06-18-2023 15:11-0500 Systolic blood pressure 116 mm[Hg] [facility] 10-19-2022 13:00-0400 Hourly Rounding [employer] [facility] 10-19-2022 13:00-0400 Promise to Return [employer] [facility] 10-19-2022 12:23-0400 Heart rate 101 /min [employer] [facility] 10-19-2022 12:23-0400 SaO2% (BldA) [Mass fraction] 98 % [employer] [facility] 10-19-2022 12:23-0400 Body temperature 98.06 [degF] [employer] [facility] 10-19-2022 12:23-0400 Diastolic blood pressure 65 mm[Hg] Jona Cristin [facility] 10-19-2022 12:23-0400 Mean blood pressure 77 mm[Hg] Jona Cristin [facility] 10-19-2022 12:23-0400 Systolic blood pressure 102 mm[Hg] Jona Cristin [facility] 10-19-2022 12:15-0400 Hourly Rounding Jona Cristin [facility] 10-19-2022 12:15-0400 Promise to Return Jona Cristin [facility] 10-19-2022 11:21-0400 Hourly Rounding Jona Cristin [facility] 10-19-2022 11:21-0400 Promise to Return Jona Cristin [facility] 10-19-2022 08:24-0400 Heart rate 103 /min Jona Cristin [facility] 10-19-2022 08:24-0400 SaO2% (BldA) [Mass fraction] 98 % Jona Cristin [facility] 10-19-2022 08:24-0400 Diastolic blood pressure 61 mm[Hg] Jona Cristin [facility] 10-19-2022 08:24-0400 Mean blood pressure 72 mm[Hg] Jona Cristin [facility] 10-19-2022 08:24-0400 Systolic blood pressure 93 mm[Hg] Jona Cristin [facility] 10-19-2022 08:23-0400 Body temperature 98.24 [degF] Jona Cristin [facility] 10-19-2022 05:12-0400 Heart rate 95 /min Jona Cristin [facility] 10-19-2022 05:12-0400 SaO2% (BldA) [Mass fraction] 98 % Jona Cristin [facility] 10-19-2022 05:12-0400 Diastolic blood pressure 41 mm[Hg] Jona Cristin [facility] 10-19-2022 05:12-0400 Mean blood pressure 56 mm[Hg] Jona Cristin [facility] 10-19-2022 05:12-0400 Systolic blood pressure 86 mm[Hg] Jona Cristin [facility] 10-19-2022 05:12-0400 Body temperature 98.6 [degF] Jona Cristin [facility] 10-18-2022 22:59-0400 Respiratory rate 20 /min Jona Cristin [facility] 10-18-2022 21:45-0400 Mean blood pressure 84 mm[Hg] Jona Cristin [facility] 10-18-2022 21:45-0400 Respiratory rate 15 /min Jona Cristin [facility] 10-18-2022 21:00-0400 Mean blood pressure 82 mm[Hg] Jona Cristin [facility] 10-18-2022 21:00-0400 Respiratory rate 17 /min Jona Cristin [facility] 10-18-2022 20:00-0400 Mean blood pressure 89 mm[Hg] Jona Cristin [facility] 10-18-2022 14:08-0400 gluc 93 mg/dL Jona Cristin [facility] 10-18-2022 14:08-0400 gluc Jonaguillermo Amaral [facility] 10-18-2022 14:08-0400 Respiratory rate 15 /min Jona Amaral [facility] 10-18-2022 13:30-0400 Heart rate 108 /min Jonaguillermo Amaral [facility] 10-18-2022 13:30-0400 Respiratory rate 16 /[facility] Encounters Encounter Date Encounter Type Care Provider Facility Start: 02-20-2024 End: 02-20-2024 ambulatory KRISTINE DARCI Not Available Start: 02-05-2024 End: 02-05-2024 ambulatory IRVING BALA Not Available Start: 01-22-2024 End: 01-22-2024 ambulatory KRISTINE DARCI Not Available Start: 12-25-2023 End: 12-25-2023 ambulatory IRVING BALA Not Available Start: 11-27-2023 End: 11-27-2023 ambulatory IRVING BALA Not Available Start: 10-29-2023 End: 10-29-2023 ambulatory KRISTINE DARCI Not Available Start: 10-01-2023 End: 10-01-2023 ambulatory IRVING BALA Not Available Start: 09-05-2023 End: 09-05-2023 ambulatory IRVING BALA Not Available Start: 06-18-2023 End: 06-18-2023 Lab Drop off [facility] Start: 06-18-2023 End: 06-18-2023 [facility] Start: 10-22-2022 End: 10-22-2022 ambulatory Roslyn Valdes Facility:CD:[id number] Start: 10-18-2022 End: 10-19-2022 ambulatory Sahil BUTLER Facility[facility] Start: 10-18-2022 End: 10-19-2022 Observation Jona Amaral [facility] Start: 10-06-2022 End: 10-07-2022 ambulatory KRISTINE BEJARANO . Facility:[facility] Start: 08-23-2022 End: 08-23-2022 ambulatory KRISTINE HILLMANEY . Facility:[facility] Start: 07-23-2022 End: 07-24-[address] IRVING LIMON . Facility:[facility] Start: 06-28-2022 End: 06-29-[address] IRVING LIMON . Facility:[facility] Start: 06-06-2022 ambulatory Esperanza Dong y:[facility] [place] Immunizations Immunization Date Immunization Notes [facility] meningococcal B vacc ine, recombinant, OMV, adjuvanted Jona Spot[facility] [place] 02-09-2021 meningococcal oligosaccharide (groups A, C, Y and W-135) diphtheria toxoid conjugate vaccine (MCV4O) [employer] [facility] [place] 02-09-2021 hepatitis A vaccine, pediatric/adolescent dosage, 2 dose schedule [employer] [facility] [place] 07-14-2018 hepatitis A vaccine, adult dosage [employer] [facility] [place] 07-14-2018 HPV, unspecified formulation [employer] [facility] [place] 07-14-2018 meningococcal B vacc ine, fully recombinant [employer] [facility] [place] 12-26-2015 HPV, unspecified formulation [employer] [facility] [place] 12-26-2015 meningococcal ACWY vaccine, unspecified formulation [employer] [facility] [place] 12-26-2015 tetanus toxoid, unspecified formulation [employer] [facility] [place] 04-28-2009 influenza virus vacc ine, unspecified formulation Jona [employer] [facility] 04-28-2008 influenza virus vacc ine, unspecified formulation [employer] [facility] 02-26-2008 diphtheria, tetanus toxoids and acellular pertussis vaccine [employer] [facility] 02-26-2008 measles, mumps and rubella virus vaccine [employer] [facility] 02-26-2008 poliovirus vaccine, unspecified formulation [employer] [facility] 02-26-2008 varicella virus vaccine [employer] [facility] 10-27-2003 diphtheria, tetanus toxoids and acellular pertussis vaccine [employer] [facility] 10-27-2003 haemophilus influenz ae type b vaccine, PRP-OMP conjugate [employer] [facility] 10-27-2003 measles, mumps and rubella virus vaccine [employer] [facility] 10-27-2003 varicella virus vaccine Vincent nder [employer] [facility] 04-28-2003 diphtheria, tetanus toxoids and acellular pertussis vaccine [employer] [facility] 04-28-2003 haemophilus influenz ae type b vaccine, PRP-OMP conjugate [employer] [facility] 04-28-2003 hepatitis B vaccine, pediatric or pediatric/adolescent dosage Jona Cristin [facility] 04-28-2003 pneumococcal conjuga te vaccine, 13 valent Jona Cristin [facility] 04-28-2003 poliovirus vaccine, unspecified formulation Jona Cristin [facility] 2002 diphtheria, tetanus toxoids and acellular pertussis vaccine Jona Cristin [facility] 2002 haemophilus influenz ae type b vaccine, PRP-OMP conjugate Jona Cristin [facility] 2002 pneumococcal conjuga te vaccine, 13 valent Jona Cristin [facility] 2002 poliovirus vaccine, unspecified formulation Jona Cristin [facility] 2002 diphtheria, tetanus toxoids and acellular pertussis vaccine Jona Cristin [facility] 2002 haemophilus influenz ae type b vaccine, PRP-OMP conjugate [employer] [facility] 2002 hepatitis B vaccine, pediatric or pediatric/adolescent dosage Jona Cristin [facility] 2002 pneumococcal conjuga te vaccine, 13 valent Jona Cristin [facility] 2002 poliovirus vaccine, unspecified formulation Jona Cristin [facility] 2002 hepatitis B vaccine, pediatric or pediatric/adolescent dosage Jona Cristin [facility] Payers Date Payer Category Payer Unknown [id number] 2023 Private Health Insurance [id number] 2021 Private Health Insurance 2002 Unknown [id number] 2.16.84 [id number] 2002 Unknown [id number] 2.16.84 [id number] 2002 Unknown [id number] 2.16.84 0.1.941173.3.579.2.593 2002 Unknown [id number] 2.16.84 0.1.316440.3.579.2.593 2002 Unknown [id number] 2.16.8 40.1.269216.3.579.2.727 2002 Unknown [id number] 2.16.8 40.1.515647.3.579.2.727 2002 Unknown [id number] 2.16.84 0.1.154148.3.579.2.1259 2002 Unknown [id number] 2.16.84 0.1.031351.3.579.2.1259 2002 Unknown [id number] 2.16.84 0.1.249938.3.579.2.1259 2002 Unknown [id number] 2.16.84 0.1.738991.3.579.2.1259 2002 Unknown [id number] 2.16.84 0.1.971421.3.579.2.1259 2002 Unknown [id number] 2.16.84 0.1.763452.3.579.2.1259 2002 Unknown [id number] 2.16.84 0.1.294653.3.579.2.1259 2002 Unknown [id number] 2.16.84 0.1.295062.3.579.2.1259 1959 Self-pay 1959 Unknown [id number] Unknown [id number] 2.16.84 [id number] Social History Date Type Detail Facility Tobacco [facility] Comment on above: denies Tobacco smoking status No Smokin g Status Entered [facility] Sex Assigned At Female [facility] Start: 06-18-2023 Tobacco smoking status Never s moked tobacco (finding) [facility] Comment on above: denies Tobacco smoking status Never Fishe [facility] Comment on above: denies Functional Status Date Assessment Result Facility 06-18-2023 Functional Status N/A [facility] 10-18-2022 Functional Status N/A [facility] 10-18-2022 Functional Status [facility] Clinical Notes 10-18-2022 to 06-18-2023 Note Date & Type Note Facility 06-18-2023 Hospital Discharge instructions Patient Education 06/18/2023 16:34:28 Pharyngitis, Tjkm-pj-Tqxd Pharyngitis Pharyngitis is a sore throat (pharynx). [...] Follow these instructions at home: Medicines Take qikm-klc-tpiqttb and prescription medicines only as told by [...] and water are not available, use hand retail delivery driver. Do not touch your eyes, nose, or [...] provider. Document Revised: 08/23/2021 Document Reviewed: 08/23/2021 [employer] Patient Education 2022 [employer]. 06/18/2023 16:34:25 Viral Illness, Adult Viral Illness, [...] Medicines to relieve symptoms. These can include wfrt-bbs-pzqjucw medicine for pain and fever, medicines for cough or congestion, and medicines to relieve diarrhea. Antiviral medicines. These medicines are available only for certain types of viruses. Some viral illnesses can be prevented with vaccinations. A common example is the flu shot. Follow these instructions at home: Medicines Take vagc-hql-xldkpgx and prescription medicines only as told by [...] and water are not available, use hand retail delivery driver. Avoid touching your nose, eyes, and mouth, [...] provider. Document Revised: 10/10/2020 Document Reviewed: 04/05/2020 [employer] Patient Education 2022 [email or web address] [facility] 06-18-2023 Evaluation + Plan note Diagnostic Tests PendingGroup A Strep by PCR 06/18/23 [facility] 01-23-2023 Note Procedure History None. Hospital [...] drug abuse. ED physician discussed case with distance learning program coordinator Dr. Butler and AWNING HANGER Dr. Mortensen. Telemetry monitoring and echocardiogram was [...] this is written under the wrong FIN [facility] Comment on above: Result Comment: Elec tronically [...] drug abuse. ED physician discussed case with distance learning program coordinator Dr. Butler and AWNING HANGER Dr. Mortensen. Telemetry monitoring and echocardiogram was [...] 78.2 % Lymph Auto - 12.3 % Dundy Auto - 8.5 % Eos Auto - 0.6 % Basophil Auto - 0.4 % Neutro Absolute - 12.7 E9/L Lymph Absolute - 2.0 E9/L Dundy Absolute - 1.4 E9/L Eos Absolute - [...] NEGATIVE1 UA Nitri (more content not included)... [facility] Comment on above: Result Comment: Elec tronically [...] care. Jono Mortensen M.D. lr Dictated: 10/19/2022 [id number] Transcribed: 10/19/2022 cc:Irving Limon D.O. [facility] Comment on above: Result Comment: Elec tronically Signed By: Festus MOSS, Jono Layne\.br\Date and Time Signed: 10/20/22 02:24 EDT 10-19-2022 Note Order received, corinne t reviewed. Attempted PT evaluation at 1424 on 10/19/22. Pt. is out of room and has been discharged from acute medical facility prior to completion of PT evaluation. No PT charges. [facility] 10-19-2022 Note Echocardiology Procedure Exam Date/Time Accession # Ordering Dr. Longoria Transthoracic 10/19/2022 12:02 EDT [id number] Favian Ahumada DO Complete CPT code 52859 [id number] Reason for Exam (Echo Transthoracic Complete) Syncope Report [facility] [address] [place] [address] Adult Echocardiogram Report Name: SIDNEY CANDELARIO Study Date: 10/19/2022 11:33 AM BP: 93/61 mmHg Patient Location: [address] [place] [address] HR: 95 : 2000 Gender: Female Height: 60 in Age: 22 yrs Ethnicity: T Weight: 110 lb Reason For Study: Syncope BSA: 1.4 m2 History: No cardiac history per patient Ordering Physician: Diego^Favian^Palmer Performed By: Ro Guerrero RDCS Interpretation Summary Ejection Fraction = 65-70%. The [...] Doppler Measurements & Calculations MV E max buck: 93.0 cm/sec MV dec time: 0.19 sec Ao V2 max: 175.9 cm/sec LV V1 max P.8 mmHg MV A max buck: 64.7 cm/sec Ao max P.4 mmHg LV V1 max: 120.8 cm/sec Echocardiology Report MV E/A: 1.4 Lat Peak E' Buck: 22.3 cm/sec E/E' Lat: 4.2 Med Peak E' Buck: 17.0 cm/sec E/E' Med: 5.5 TR max buck: 256.3 cm/sec RAP systole: 3.0 mmHg AV VR: 0.69 TR max P.3 mmHg RVSP(TR): 29.3 mmHg FINAL REPORT Dictated: 10/19/2022 11:33 am Sahil Butler MD Signed (Electronic Signature): 10/19/2022 12:12 pm Signed by: Sahil Butler MD Transcribed by: MAYRA Technologist: ÁLVARO [facility] 10-19-2022 Evaluation + Plan note Extrac shahrzad [...] made to ensure accuracy, however, inadvertently computerized field case manager mistakes may be present. Dr. Jona Amaral [...] Weight Diagnostic Tests Pending * Cortisol 10/19/22 [facility]05-12-2023 NoteChief Complaint Dizziness Reason for Consultation [...] not improve, she sought medical attention at [facility] emergency room. In theemergency room [...] check Historical No q (more content not included)...[facility]: Result Comment: Electronically Signed By: Isreal MOSS, Sahil Hughes\Date and Time Signed: 10/19/22 10:01 [id number] Hospital Discharge instructions Patient Education 10/19/2022 09:40:44 [...] Treatment for this condition includes: Antibiotic medicine. Pfdv-pcu-onscssg medicines to treat discomfort. Drinking enough water [...] Follow these instructions at home: Medicines Take mqgc-vut-itnkapy and prescription medicines only as told by [...] provider. Document Revised: 01/06/2021 Document Reviewed: 01/06/2021 [employer] Patient Education 2022 [employer] 10/19/2022 09:40:42 Near-Syncope, Mcjd-ut-Zecs Near-Syncope Near-syncope is when you suddenly feel [...] Follow these instructions at home: Medicines Take fxwe-mro-ycygjrv and prescription medicines only as told by [...] provider. Document Revised: 10/05/2021 Document Reviewed: 10/05/2021 [employer] Patient Education 2022 [employer]. Follow Up Care 10/18/2022 13:28:40 With:Isreal MOSS, Sahil Fuller Address: [address] [place] [phone] When:2 weeks With:Roslyn Valdes MD, [facility], [facility] Address: [phone] When:2 to 4 days [facility]05-11-2023 NoteChief Complaint pt reports being 27 [...] drug abuse. ED physician discussed case with distance learning program coordinator Dr. Butler and AWNING HANGER Dr. Mortensen. Telemetry monitoring and echocardiogram was [...] Lymph Auto: 11.2 % Low (10/18/22 14:39:00) Dundy Auto: 8.3 % (10/18/22 14:39:00) Eos Auto: 0.5 % (10/18/22 14:39:00) Basophil Auto: 0.6 % (10/18/22 14:39:00) Neutro Absolute: 12.5 E9/L High (10/18/22 14:39:00) Lymph Absolute: 1.8 E9/L (10/18/22 14:39:00) Dundy Absolute: 1.3 E9/L High (10/18/22 14:39:00) Eos [...] assessed the patient i (more content not included)...[facility]Result Comment: Electronically Signed By: Cristin MOSS, Jona Rivera\.br\Date and Time Signed: 10/18/22 19:03 EDTHospital course Narrative No data available for this section [facility] No data available for this section [facility] No data available for this section [facility] Summary Purpose Family History No Family History Records FoundNo Family History Records Found No data available for this section No data available for this section No Family History Records Found Advance Directives No Advanced Directives Records FoundNo Advanced Directives Records FoundNo Advanced Directives Records Found Additional Source Comments INFORMATION SOURCE (unrecogn ized section and content) DATE CREATED AUTHOR 10/13/2022 [facility] DATE CREATED AUTHOR AUTHOR'S ORGANIZ ATION 01/24/2023 [facility] DATE CREATED AUTHOR AUTHOR'S ORGANIZ ATION 02/22/2024 [facility] EPIC Patient Care team informatio n (unrecognized section and content) Personnel Name: Roslyn Valdes MD Address: Address: [address] [place] [address] Personnel Name: Roslyn Valdes MD Address: Address: [address] [place] [address] Personnel Name: Roslyn Valdes MD Address: Address: [address] [place] [address] FOR RECORDS PERTAINING TO PATIENTS WHO ARE [...] BE BASED ON THE PRIMARY CLINICAL RECORDS. [facility] [employer] [facility]. provides no warranty or guarantee of the accuracy or completeness of information in this document.
== END 2024-03-19 14:47 | disposition home or self-care (01) ==
LOC: NOMS 14:47
PROVIDERS: Visit Provider Obstetrics & Gynecology
DX: O36.5930 Maternal care for other known or suspected poor fetal growth, third trimester, not applicable or unspecified (principal); Z3A.36 36 weeks gestation of pregnancy
CPT/HCPCS: 76816; 87081; 87150

== ENCOUNTER 2024-03-19 19:17 | Outpatient (REF) | payer BC, SELFPAY ==
--- OUTSIDE RECORDS SUMMARY | 2024-03-19 19:21 | XMS_ITS | CCD ---
Author Organization [facility] Care Team Providers Care Golf Instructor Name Role Phone BALA ., DR MAN [...] DR CAMELIA Isabel Consulting Unavailable DARCI ., KIRSTINE Consulting Unavailable BALA ., DR MAN Admitting Unavailable BALA ., DR MAN Attending Unavailable BALA ., DR MAN Consulting Unavailable ZIEBER, DR CAMELIA Isabel Consulting Unavailable Keisha, [place]lyn Primary Care Physician aShil BUTLER Consulting Unavailable Jona Amaral Admitting Unavailable Jona Amaral Attending Unavailable Sahil BUTLER Consulting Unavailable Sahil BUTLER Consulting Unavailable Roslyn Valdse Admitting Unavailable Esperanza SONG Attending Unavailable IRVING [...] day(s), # 16 cap(s), Refills(s) 0, Pharmacy: [id number], cm, 10/18/22 13:33:00 EDT, Height/Length [...] Range Facility Nursing Assessmenton 023 Nursing Assessment [id number] #1.00CD:127 Normal [facility] Discharge Instructionson Discharge Instructions [id number] #1.00CD:127 Normal [facility] C Urineon 10-20-2022 Bacteria identified Cx [...] Locations R1: This test was performed at: [facility], [address] [place] [address], [address] [place] [address], [facility] Comment on above: Performed By: #### 2 469169, [id number], [id number] ####[facility] [address] [place] [address] Cortisolon 10-20-2022 Cortisol [Mass/Vol] 18.4 microgram/dL Invalid Interpretation Code 6.2-19.4 [facility] Comment on above: Result Comment: Yudith jeter Note: The reference interval and flagging for this test is for an AM collection. If this is a PM collection please use: Cortisol PM: 2.3-11.9 Performed at: [facility] [address] [id number] PhD Buck Montes Performed By: #### 2 [id number] #### [facility] [address] [place] [address] [place] [address] Auto Diffon 10-19-2022 Basophils/100 WBC (Bld) 0.4 % Normal 0.0-2.0 [facility] Comment on above: Order Comment: Order Added by Discern Expert. Performed By: #### 2 137303 #### [facility] [address] [place] [address] Basophils/Leukocytes Auto (Bld) [Pure # fraction] 0.1 E9/L Normal 0.0-0.2 [facility] Comment on above: Order Comment: Order Added by Discern Expert. Performed By: #### 2 524677 #### [facility] [address] [place] [address] Eosinophils/100 WBC (Bld) 0.6 % Normal 0.0-8.0 [facility] Comment on above: Order Comment: Order Added by Discern Expert. Performed By: #### 2 153063 #### [facility] [address] [place] [address] Eosinophils/Leukocytes Auto (Bld) [Pure # fraction] 0.1 E9/L Normal 0.0-0.5 [facility] Comment on above: Order Comment: Order Added by Discern Expert. Performed By: #### 2 602751 #### [facility] [address] [place] [address] Lymphocytes/100 WBC (Bld) 12.3 % Low 14.0-50.0 [facility] Comment on above: Order Comment: Order Added by Discern Expert. Performed By: #### 2 372190 #### [facility] [address] [place] [address] Lymphocytes/Leukocytes Auto (Bld) [Pure # fraction] 2.0 E9/L Normal 1.0-4.0 [facility] Comment on above: Order Comment: Order Added by Discern Expert. Performed By: #### 2 865044 #### [facility] [address] [place] [address] Monocytes/100 WBC (Bld) 8.5 % Normal 4.0-14.0 [facility] Comment on above: Order Comment: Order Added by Discern Expert. Performed By: #### 2 471510 #### [facility] [address] [place] [address] Monocytes/Leukocytes Auto (Bld) [Pure # fraction] 1.4 E9/L High 0.2-1.0 [facility] Comment on above: Order Comment: Order Added by Discern Expert. Performed By: #### 2 161044 #### [facility] [address] [place] [address] Neutrophils/100 WBC (Bld) 78.2 % High 36.0-75.0 [facility] Comment on above: Order Comment: Order Added by Discern Expert. Performed By: #### 2 368712 #### [facility] [address] [place] [address] Neutrophils/Leukocytes Auto (Bld) [Pure # fraction] 12.7 E9/L High 2.0-7.5 [facility] Comment on above: Order Comment: Order Added by Discern Expert. Performed By: #### 2 539770 #### [facility] [address] [place] [address] BMPon 10-19-2022 Anion gap [Moles/Vol] 10 mmol/L Normal 6-16 [facility] Comment on above: Performed By: #### 2 449531 #### [facility] [address] [place] [address] Calcium [Mass/Vol] 8.0 mg/dL Low 8.9-11.1 [facility] Comment on above: Performed By: #### 2 834379 #### [facility] [address] [place] [address] Chloride [Moles/Vol] 106 mmol/L Normal 101-111 [facility] Comment on above: Performed By: #### 2 852177 #### [facility] [address] [place] [address] CO2 [Moles/Vol] 23 mmol/L Normal 21-31 [facility] Comment on above: Performed By: #### 2 404425 #### [facility] [address] [place] [address] Creatinine [Mass/Vol] 0.5 mg/dL Normal 0.5-1.3 [facility] Comment on above: Performed By: #### 2 196636 #### [facility] [address] [place] [address] Glucose [Mass/Vol] 82 mg/dL Normal 55-199 [facility] Comment on above: Result Comment: If t his glucose result represents a fasting glucose, interpretation should refer to the following reference range: 55-99 mg/dL Performed By: #### 2 349513 #### [facility] [address] [place] [address] Potassium [Moles/Vol] 3.6 mmol/L Normal 3.5-5.3 [facility] Comment on above: Performed By: #### 2 969977 #### [facility] [address] [place] [address] Sodium [Moles/Vol] 135 mmol/L Normal 135-145 [facility] Comment on above: Performed By: #### 2 674483 #### [facility] [address] [place] [address] Urea nitrogen [Mass/Vol] 5 mg/dL Normal 5-21 [facility] Comment on above: Performed By: #### 2 104365 #### [facility] [address] [place] [address] Urea nitrogen/Creatinine [Mass ratio] 10 No Units Normal 10-20 [facility] Comment on above: Performed By: #### 2 177052 #### [facility] [address] [place] [address] CBC w/ Auto Diffon 3 Erythrocyte distribution width (RBC) [Ratio] 13.6 % Normal 10.9-14.2 [facility] Comment on above: Performed By: #### 2 711947 #### [facility] [address] [place] [address] Hematocrit (Bld) [Volume fraction] 34.1 % Normal 34.0-46.0 [facility] Comment on above: Performed By: #### 2 111648 #### [facility] [address] [place] [address] Hemoglobin (Bld) [Mass/Vol] 11.3 g/dL Low 12.0-16.0 [facility] Comment on above: Performed By: #### 2 547877 #### [facility] [address] [place] [address] MCH (RBC) [Entitic mass] 30.3 pg Normal 27.0-34.0 [facility] Comment on above: Performed By: #### 2 783729 #### [facility] [address] [place] [address] MCHC (RBC) [Mass/Vol] 33.2 g/dL Normal 31.4-36.0 [facility] Comment on above: Performed By: #### 2 739536 #### [facility] [address] [place] [address] MCV (RBC) [Entitic vol] 91.3 fL Normal 80.0-100.0 [facility] Comment on above: Performed By: #### 2 002261 #### [facility] [address] [place] [address] Platelet mean volume (Bld) [Entitic vol] 8.9 fL Normal 6.4-10.8 [facility] Comment on above: Performed By: #### 2 534379 #### [facility] [address] [place] [address] Platelets (Bld) [#/Vol] 146.0 E9/L Low 150.0-500.0 [facility] Comment on above: Performed By: #### 2 983594 #### [facility] [address] [place] [address] RBC (Bld) [#/Vol] 3.7 E12/L Low 4.3-5.9 [facility] Comment on above: Performed By: #### 2 724318 #### [facility] [address] [place] [address] WBC corrected for nucl RBC Auto (Bld) [#/Vol] 16.3 E9/L High 4.0-11.0 [facility] Comment on above: Performed By: #### 2 869493 #### [facility] [address] [place] [address] CHEMISTRYOrdered By: SYSTEM SYSTEM on 10-19-2022 Anion [...] 138 mL/min/1.73 m2 Normal >=59mL/min/1 .73 m2 [facility] Chem S Glucose [Mass/Vol] 82 mg/dL Normal [...] Pending Diagnostic Test Results None Pharmacy Information [facility] [place] New Follow Up Appointments after Discharge Follow Up with Sahil Butler MD When: Within 2 weeks Where: [address] [place] [phone] Follow Up with Roslyn Valdes MD, [facility], MED When: Within 2 to 4 days Where: [phone] Medications What How Much When Instructions Next Dose New cephalexin (Keflex 500 mg Cap) 1 Capsules By Mouth Every 6 hours Duration: 4 Days Pickup at [facility] Pharmacy Information [facility]: [address] [place], [place] [phone] What How Much When Comments Stop Taking [...] condition include: (more content not included)... Normal [facility] ED Clinical Summaryon 2022 ED Clinical Summary [place] [id number] ED Clinical Summary Person Information Name: SIDNEY CANDELARIO[facility] Age: 22 Years : 2000 Sex: Female Language: Georgian PCP: Roslyn Valdes MD Marital Status: Visit [...] 22:10:25 10/18/2022 22:10:25 10/18/2022 22:10:25 ADDRESS: [address] [place] [phone] PHYS DOC NOTES: MEDICAL INFORMATION: Prescriptions Given: Medications to Continue with No Changes Other Medications ibuprofen (ibuprofen 400 mg Tab) 1 Tablets By Mouth every 6 hours as needed for pain. Refills: 0. PATIENT EDUCATION INFORMATION: Instructions: Follow up: DIAGNOSIS: 1:Near syncope; 2:UTI (urinary tract infection); 3:Hypokalemia; Elevated troponin Normal [facility] ED Patient Education Noteon 10-19-2022 ED Patient Education Note Normal [facility] ED Patient Summaryon 023 ED Patient Summary [address] [address] Patient Discharge Instructions Person Information Name: SIDNEY CANDELARIO Age: 22 Years Arrival Date: 10/18/2022 13:27:27 Discharge Diagnosis: 1:Near syncope; 2:UTI (urinary tract infection); 3:Hypokalemia; Elevated troponin Primary Care Physician: Roslyn Valdes MD Provider Information Primary Provider: Favian Ahumada DO [employer] Qa Tester:None The exam and treatment you received in the Emergency Department were for an urgent problem and are not intended as complete care. It is important that you follow up with a doctor, nurse practitioner, or physician?s orthodontic technician assistant for ongoing care. If your symptoms [...] opioids can be used to help relieve lrvryuni-cs-dosfog pain and are often prescribed following a [...] be struggling with addiction, tell your health child day care teacher and ask for guidance or call [facility] National Helpline at 2-559-479-SESZ. j Source: US Department of Health and Human Services/Center for Disease Control & Prevention [facility] (more content not included)... Normal [facility] HEMATOLOGYOrdered By: SYSTEM SYSTEM on 10-19-2022 [...] Inpatient Clinical Summaryon 10-19-2022 Inpatient Clinical Summary [place] [address] Clinical Summary Person Information: Name: SIDNEY CANDELARIO Age: 22 Years : 2000 Sex: Female PCP: Roslyn Valdes MD Marital Status: Race: White Ethnicity: Non- or Language: Georgian Visit Id: Visit Reason: Dizziness; UTI, NEAR SYNCOPE, HYPOKALEMIA Speciality: Acuity: Enc Type: Observation Med Service: Medical Arrival: 10/18/2022 13:27:27 Discharge: Dispo Type: Address: [address] [place] [phone] Provider Notes: Diagnosis: 1:Near syncope; 2:UTI (urinary [...] up: With: Address: When: Roslyn Valdes MD, [facility] [phone] Within 2 to 4 days Patient Education Information: Normal [facility] Inpatient Patient Summaryon 10-19-2022 Inpatient Patient Summary [place] [id number] Patient Discharge Instructions PERSON INFORMATION Name: SIDNEY CANDELARIO Date of : 2000 Current Date: 10/19/2022 09:40:25 PHYSICIANS Admitting Physician: Jona Amaral MD Primary Care Physician: Roslyn Valdes MD PCP Phone Number: [phone] Comment: Discharge Diagnosis: 1:Near syncope; 2:UTI (urinary [...] up: With: Address: When: Roslyn Valdes MD, [facility], [facility] [phone] Within 2 to 4 days In the [...] needed for pain. Refills: 0. [facility] [place] Comment: PATIENT EDUCATION INFORMATION Instructions: Medication Leaflets: You may receive a survey from [employer] asking you to rate your care experience. Your feedback is important and will help us understand what we do well and how we can improve the quality of care we provide to you, your loved ones and our community. It?s an honor to serve you. Thank you for choosing [facility] Normal [facility] Interdisciplinary Note - Christ e Manageron 10-19-2022 Interdisciplinary Note - Optical Lens Manufacturing Tech Pt is awake and alert in bed, previously rounded with Dr. Amaral. Spouse at bedside, Pt is aware of plan for scan today and plan to DC home later today. Declines any concerns or DC needs. Observation status reviewed. PCP verified and insurance information reviewed and DME discussed. Contact information provided and white board updated. Normal [facility] Comment on above: Result Comment: Elec tronically Signed By: Heraclio GRAFF, Sayda\.br\Date and Time Signed: 10/19/22 11:06 EDT Magnesiumon 10-19-2022 Magnesium [Mass/Vol] 1.7 mg/dL Normal 1.3-2.4 [facility] Comment on above: Performed By: #### 2 862358 #### [facility] [address] [place] [address] Monitor Recordon 10-19-2022 Monitor Record [id number]#1.00CD:127 Normal [facility] Monitor Record [id number]#1.00CD:127 Normal [facility] Monitor Record [id number]#1.00CD:127 Normal [facility] Monitor Record [id number]#1.00CD:127 Normal [facility] Patient Education - Texton 0 10-19-2022 [...] these instructions at home: Medicines ? Take nmxp-azz-uikimgn and prescription medicines only as told by [...] provider. Document Revised: 10/05/2021 Document Reviewed: 10/05/2021 [employer] Patient Education ? 2022 [employer]. Obstetrics and Gynecology Urinary Tract Infection, Adult [...] (neurogenic bladder). (more content not included)... Normal [facility] Phosphoruson 10-19-2022 Phosphate [Mass/Vol] 3.8 mg/dL Normal 1.9-4.6 [facility] Comment on above: Performed By: #### 2 095614 #### [facility] [address] [place] [address] Progress Note-Physicianon Progress Note-Physician Basic Informatio n [...] drug abuse. ED physician discussed case with huller operator Dr. Butler and REAL ESTATE ASSISTANT Dr. Mortensen. Telemetry monitoring and echocardiogram was [...] made to ensure accuracy, however, inadvertently computerized transcription specialist mistakes may be present. Dr. Jona Amaral [...] Lymph Auto: 12.3 % Low (10/19/22 05:47:00) [place] Auto: 8.5 % (10/19/22 05:47:00) Eos Auto: 0.6 % (10/19/22 05:47:00) Basophil Auto: 0.4 % (10/19/22 05:47:00) Neutro Absolute: 12.7 E9/L High (10/19/22 05:47:00) Lymph Absolute: 2 E9/L (10/19/22 05:47:00) [place] Absolute: 1.4 E9/L High (10/19/22 05:47:00) Eos [...] 05:47:00) Magnesium (more content not included)... Normal [facility] Comment on above: Result Comment: Elec tronically Signed By: Cristin MOSS, Jona Rivera\.br\Date and Time Signed: 10/19/22 12:08 EDT Troponin 9 Hr.on 10-19-2022 Troponin I.cardiac [Mass/Vol] 48.10 pg/mL Abnormal 10.10-27.10 [facility] Comment on above: Order Comment: pt is not discharged despite the discharge status. pt is in room 302; third shift phleb was notified not to cancel pending orders. [id number] 10/18/2022 22:15:32 EDT Result Comment: Crit ical [...] Carlos, January 2018) Performed By: #### 1 [id number] #### [facility] [address] [place] [address] eGFRon 10-19-2022 GFR/1.73 sq M.predicted among non-blacks MDRD (S/P/Bld) [Vol rate/Area] 138 mL/min/1.73 m2 Normal >=59 [facility] Comment on above: Order Comment: Order added by Discern Expert. Result Comment: Program Coordinator Executive Education sydnie kidney disease could be indicated at eGFR's of less than 60 mL/min/1.73m2. Kidney failure is indicated at less than 15 mL/min/1.73m2. Performed By: #### 2 919478 #### [facility] [address] [place] [address] Acetamnphn Lvlon 10-18-2022 Acetaminophen [Mass/Vol] ug/mL Low 15-30 [facility] Comment on above: Performed By: #### 1 6571269, 4412720, 3228340, 60910150, 2669681, 19199039, 63428456, 4226821, 2568012 ####[facility] [address] [place] [address] Auto Diffon 10-18-2022 Basophils/100 WBC (Bld) 0.6 % Normal 0.0-2.0 [facility] Comment on above: Order Comment: Order Added by Discern Expert. Performed By: #### 1 6229443, 6778109, 1099795, 72751152, 9800243, 42395432, 27467951, 9479349, 9773914 ####[facility] [address] [place] [address] Basophils/Leukocytes Auto (Bld) [Pure # fraction] 0.1 E9/L Normal 0.0-0.2 [facility] Comment on above: Order Comment: Order Added by Discern Expert. Performed By: #### 1 6579865, 0940615, 0895686, 48398616, 0852098, 41049556, 90446450, 5253430, 1706775 ####[facility] [address] [place] [address] Eosinophils/100 WBC (Bld) 0.5 % Normal 0.0-8.0 [facility] Comment on above: Order Comment: Order Added by Discern Expert. Performed By: #### 1 8261161, 8851875, 7374146, 51682862, 4980780, 08219146, 38047577, 8202775, 4478015 ####[facility] [address] [place] [address] Eosinophils/Leukocytes Auto (Bld) [Pure # fraction] 0.1 E9/L Normal 0.0-0.5 [facility] Comment on above: Order Comment: Order Added by Discern Expert. Performed By: #### 1 5314050, 8263183, 6126091, 58822034, 0548570, 25348162, 46792817, 6727445, 4025307 ####[address] [address] Lymphocytes/100 WBC (Bld) 11.2 % Low 14.0-50.0 [facility] Comment on above: Order Comment: Order Added by Discern Expert. Performed By: #### 1 4367456, 4934221, 9561618, 93249661, 9958501, 42348669, 42036924, 9586859, 2709332 ####[address] [address] Lymphocytes/Leukocytes Auto (Bld) [Pure # fraction] 1.8 E9/L Normal 1.0-4.0 [facility] Comment on above: Order Comment: Order Added by Discern Expert. Performed By: #### 1 6991635, 8326883, 2032939, 41565231, 0896962, 27477908, 89221073, 6175631, 8490279 ####[address] [address] Monocytes/100 WBC (Bld) 8.3 % Normal 4.0-14.0 [facility] Comment on above: Order Comment: Order Added by Discern Expert. Performed By: #### 1 6313757, 3581904, 7666205, 63011745, 8516693, 29838161, 58374271, 6475048, 3105733 ####[address] [address] Monocytes/Leukocytes Auto (Bld) [Pure # fraction] 1.3 E9/L High 0.2-1.0 [facility] Comment on above: Order Comment: Order Added by Discern Expert. Performed By: #### 1 4347247, 7162672, 4289829, 62761860, 2894997, 03333892, 61710166, 6298793, 9377314 ####[facility] [address] [place] [address] Neutrophils/100 WBC (Bld) 79.4 % High 36.0-75.0 [facility] Comment on above: Order Comment: Order Added by Discern Expert. Performed By: #### 1 6512344, 9727256, 9664101, 39461252, 9127831, 27715740, 65732264, 6166546, 2592016 ####[facility] [address] [place] [address] Neutrophils/Leukocytes Auto (Bld) [Pure # fraction] 12.5 E9/L High 2.0-7.5 [facility] Comment on above: Order Comment: Order Added by Discern Expert. Performed By: #### 1 0316676, 5699734, 8319249, 62097528, 9474911, 37754168, 09653284, 8100411, 2158503 ####[facility] [address] [place] [address] [facility] 10-18-2022 Creatinine [Mass/Vol] 0.5 mg/dL Normal 0.5-1.3 [facility] Comment on above: Performed By: #### 1 8864482, 5494224, 8166847, 34302557, 9454749, 14326266, 98641069, 9747813, 3251283 #### [facility] [address] [place] [address] Urea nitrogen [Mass/Vol] 7 mg/dL Normal 5-21 [facility] Comment on above: Performed By: #### 1 2466470, 3340504, 6412659, 17197354, 9675805, 38265278, 95713959, 2183757, 6332423 #### [facility] [address] [place] [address] Urea nitrogen/Creatinine [Mass ratio] 14 No Units Normal 10-20 [facility] Comment on above: Performed By: #### 1 7394267, 2269798, 9797358, 24932005, 8319630, 38973942, 59585492, 0544795, 8256573 #### [facility] [address] [place] [address] Anion gap [Moles/Vol] 11 mmol/L Normal 6-16 [facility] Comment on above: Performed By: #### 1 1041331, 6846343, 6827126, 37849271, 0502528, 20224288, 31348702, 2402889, 8260909 #### [facility] [address] [place] [address] Calcium [Mass/Vol] 8.7 mg/dL Low 8.9-11.1 [facility] Comment on above: Performed By: #### 1 2587003, 7247308, 1191939, 00439388, 7364668, 53594615, 83880108, 3414430, 7369839 #### [facility] [address] [place] [address] Chloride [Moles/Vol] 102 mmol/L Normal 101-111 [facility] Comment on above: Performed By: #### 1 6898318, 7244222, 3342663, 45637535, 6757439, 48215563, 93807137, 9273713, 2357142 #### [facility] [address] [place] [address] CO2 [Moles/Vol] 26 mmol/L Normal 21-31 [facility] Comment on above: Performed By: #### 1 2796575, 8970076, 6792933, 08159298, 1678600, 78456992, 99082835, 4891066, 4087118 #### [facility] [address] [place] [address] Glucose [Mass/Vol] 97 mg/dL Normal 55-199 [facility] Comment on above: Result Comment: If t his glucose result represents a fasting glucose, interpretation should refer to the following reference range: 55-99 mg/dL Performed By: #### 1 0602803, 5120000, 1039377, 85300542, 5807863, 94378014, 75069483, 7039853, 0842414 #### [facility] [address] [place] [address] Potassium [Moles/Vol] 3.3 mmol/L Low 3.5-5.3 [facility] Comment on above: Performed By: #### 1 4958358, 1945321, 4162750, 56004931, 4703802, 20070949, 57023533, 9307866, 1963044 #### [facility] [address] [place] [address] Sodium [Moles/Vol] 136 mmol/L Normal 135-145 [facility] Comment on above: Performed By: #### 1 3376781, 8789252, 9360449, 02566352, 5540085, 23842981, 55777908, 4725008, 4878077 #### [facility] [address] [place] [address]184957 CBC w/ Auto Diffon 3 Erythrocyte distribution width (RBC) [Ratio] 13.8 % Normal 10.9-14.2 [facility] Comment on above: Performed By: #### 1 8962777, 9343987, 4192750, 20434988, 1653584, 14421216, 40011565, 7682615, 1297448 #### [facility] [address] [place] [address] Hematocrit (Bld) [Volume fraction] 37.4 % Normal 34.0-46.0 [facility] Comment on above: Performed By: #### 1 7644323, 3089835, 3388620, 83199990, 9468108, 36826368, 59359130, 8957740, 3962868 #### [facility] [address] [place] [address] Hemoglobin (Bld) [Mass/Vol] 12.5 g/dL Normal 12.0-16.0 [facility] Comment on above: Performed By: #### 1 7644033, 1290908, 7455048, 54637860, 2265678, 95356798, 25558929, 6741852, 7154470 #### [facility] [address] [place] [address] MCH (RBC) [Entitic mass] 30.1 pg Normal 27.0-34.0 [facility] Comment on above: Performed By: #### 1 9204304, 4918627, 2916211, 97375062, 6256536, 01016261, 04082651, 8015562, 9090581 #### [facility] [address] [place] [address] MCHC (RBC) [Mass/Vol] 33.6 g/dL Normal 31.4-36.0 [facility] Comment on above: Performed By: #### 1 0026929, 7730311, 8269169, 68959449, 4234280, 70807053, 33564042, 5677128, 8203642 #### [facility] [address] [place] [address] MCV (RBC) [Entitic vol] 89.7 fL Normal 80.0-100.0 F [facility] Comment on above: Performed By: #### 1 [id number], 8507438, 1971716, 60687972, 3684709, 18153219, 99661080, 7246643, 0102818 #### [facility] [address] [id number] Platelet mean volume (Bld) [Entitic vol] 9.2 fL Normal 6.4-10.8 [facility] Comment on above: Performed By: #### 1 3258532, 3357106, 5224476, 37772923, 2717137, 91772843, 96023096, 9805855, 9496668 #### [facility] [address] [place] [address] Platelets (Bld) [#/Vol] 146.0 E9/L Low 150.0-500.0 [facility] Comment on above: Performed By: #### 1 9006468, 4932159, 7503686, 40509213, 3437632, 25441189, 93785731, 3196551, 1744554 #### [facility] [address] [place] [address] RBC (Bld) [#/Vol] 4.2 E12/L Low 4.3-5.9 [facility] Comment on above: Performed By: #### 1 0160681, 7434993, 5382929, 72083934, 6080207, 98129779, 75017894, 0118847, 7602149 #### [facility] [address] [place] [address] WBC corrected for nucl RBC Auto (Bld) [#/Vol] 15.8 E9/L High 4.0-11.0 [facility] Comment on above: Result Comment: Slid e reviewed by 10/18/2022 15:09:43 EDT. Performed By: #### 1 7033928, 0558971, 6305306, 99371747, 7375390, 02092348, 20830443, 0193730, 9268566 #### [facility] [address] [place] [address] CHEMISTRYOrdered By: SYSTEM SYSTEM on 10-18-2022 Ethanol [Mass/Vol] mg/dL Normal <=7mg/dL [facility] R emisol Troponin I.cardiac [Mass/Vol] 53.00 pg/mL Invalid Interpretation Code 10.10 - 27.10 pg/mL [facility] Remisol Comment on above: Result Comment: Crit ical Result verified by previous result\ Critical Result I_hsTnI:53.0 Called to DAVIDA TAYLOR at ER by VALERIA ROGERS and read back for confirmation at 10/18/2022 21:36:32 Troponin I.cardiac [Mass/Vol] 49.60 pg/mL Invalid Interpretation Code 10.10 - 27.10 pg/mL [facility] Remisol Comment on above: Result Comment: Crit [...] Treatmenton 10-08 Consent for Treatment [id number] #1.00CD:127 Normal [facility] ED Note-Physicianon 10-19-19 ED Note-Physician Basic [...] PULM: Lungs clear to auscultation in all lcehuga. No wheezes, rales, or rhonchi. No conversational [...] patient assessment and treatment. Medical Decision Making [facility] Data External documents reviewed: Not applicable My EKG interpretation: As below My CT interpretation: Not applicable My X-ray interpretation: As below My Ultrasound interpretation: Not applicable Decision rules/scores evaluated: Not applicable Discussed with: Dr. Mortensen, REAL ESTATE ASSISTANT. Dr. Butler, cardiology. Dr. Calhoun, Hospitalist. Treatment [...] tachycardia. I will call and discuss with REAL ESTATE ASSISTANT and cardiology. (more content not included)... Normal [facility] Comment on above: Result Comment: Elec tronically Signed By: Favian Ahumada DO\.br\Date and Time Signed: 10/18/22 19:58 EDT Ethanolon 10-18-2022 Ethanol [Mass/Vol] mg/dL Normal <=7 [facility] Comment on above: Performed By: #### 2 620345 ####[facility] [address] [place] [address] HEMATOLOGYOrdered By: SYSTEM SYSTEM on 10-18-2022 Basophils/100 [...] 4.2 E12/L Low 4.3 - 5.9 E12/L [facility] HemeAutoSS WBC corrected for nucl RBC Auto (Bld) [#/Vol] 15.8 E9/L High 4.0 - 11.0 E9/L [facility] HemeAutoSS Comment on above: Result Comment: Bhargav jake reviewed by HUGO 10/18/2022 15:09:43 EDT. Laboratory - Microbiology an d Antimicrobial susceptibilityOrdered By: Nyla Rajan on 10-18-2022 Bacteria identified Cx Nom (U) 100 cfu/ml Mixed skin contaminants [facility] Monitor Recordon 10-18-2022 Monitor Record [id number]#1.00CD:127 Normal [facility] Monitor Record [id number]#1.00CD:127 Normal [facility] Monitor Record [id number]#1.00CD:127 Normal [facility] PT & PTTon 10-18-2022 aPTT Coag (PPP) [Time] 25.8 second(s) Normal 25.1-36.5 [facility] Comment on above: Result Comment: Para [...] the same coagulation reagent and instrumentation as [facility]. Currently there are no coagulation studies available worldwide for children to 14 days, and no normal ranges. Heparin therapeutic range (represented by Anti-Factor Xa activity of 0.2 - 0.4 U/mL) corresponds to PTT of 56.6 - 109.0 sec. Performed By: #### 1 3794856, 7751577, 9433308, 55602872, 0084455, 27720112, 71230748, 7684691, 6104944 #### [facility] [address] [place] [address] INR Coag (PPP) [Relative time] 1.0 {INR} Invalid Interpretation Code [facility] Comment on above: Result Comment: INR results are specifically intended to assess patients stabilized on long-term Anticoagulation therapy suggested INR?s ?Less Intensive Anticoagulation? 2.0 ? 3.0 Conventional Range 3.0 ? 4.5 Performed By: #### 1 2965794, 4751239, 5015156, 13969001, 7655055, 00461668, 42245634, 3614976, 2788934 #### [facility] [address] [place] [address] PT Coag (PPP) [Time] 10.8 second(s) Normal 9.4-12.5 [facility] Comment on above: Result Comment: 15 [...] the same coagulation reagent and instrumentation as [facility]. Currently there are no coagulation studies available worldwide for children to 14 days, and no normal ranges. Performed By: #### 1 3182010, 0764808, 2113728, 82948310, 5095066, 34529809, 52543221, 0539605, 7391161 #### [facility] [address] [place] [address] Progress Note-Nurseon 2022 Progress Note-Nurse Patient: SIDNEY CANDELARIO Age: 22 years Sex: Female : 2000 Associated Diagnoses: None Author: Mell GRAFF, Meghna 25 week GI P0 in ER. heart tracing times 10 minutes obtained. Baseline 150bpm, moderate variability with accelerations increasing to 160. Audible movement. Pt states she can feel movement. Normal [facility] Salicylateon 10-18-2022 Salicylates [Mass/Vol] mg/dL Low 6-29 [facility] Comment on above: Performed By: #### 1 9862968, 9413312, 1614135, 14821351, 3894091, 26557081, 90644461, 2803975, 5034258 ####[facility] [address] [place] [address] TSH With T4fr Reflexon 10-18 TSH Qn 1.50 m[IU]/L Normal 0.34-5.60 [facility] Comment on above: Performed By: #### 1 7033507, 1460925, 9548652, 40139272, 5363024, 85505625, 83484967, 6327672, 5819612 ####[facility] [address] [place] [address] Troponinon 10-18-2022 Troponin I.cardiac [Mass/Vol] 47.10 pg/mL Abnormal 10.10-27.10 [facility] Comment on above: Result Comment: Crit [...] Sensitivity Troponin I Instructions For Use, [facility] [place], January 2018) Performed By: #### 2 772316 #### [facility] [address] [place] [address] Troponin 0 Hr.on 10-18-2022 Troponin I.cardiac [Mass/Vol] 42.20 pg/mL Abnormal 10.10-27.10 [facility] Comment on above: Result Comment: Crit [...] conjunction with clinical conditions of myocardial infarction. (AutoESL High Sensitivity Troponin I Instructions For Use, [place], January 2018) Performed By: #### 1 2327013, 3721919, 9608483, 48068651, 4186333, 39493818, 77749340, 5217263, 3370367 ####[facility] [address] [place] [address] Troponin 3 Hr.on 10-18-2022 Troponin I.cardiac [Mass/Vol] 49.60 pg/mL Abnormal 10.10-27.10 [facility] Comment on above: Result Comment: Crit [...] conjunction with clinical conditions of myocardial infarction. (AutoESL High Sensitivity Troponin I Instructions For Use, [place], January 2018) Performed By: #### 1 7007901 #### [facility] [address] [place] [address] Troponin 6 Hr.on 10-18-2022 Troponin I.cardiac [Mass/Vol] 53.00 pg/mL Abnormal 10.10-27.10 [facility] Comment on above: Result Comment: Crit [...] Sensitivity Troponin I Instructions For Use, [facility] [place], January 2018) Performed By: #### 1 [id number] #### [facility] [address] [place] [address] U Drug Screenon 10-18-2022 Amphetamines Screen method >1000 ng/mL Ql (U) Negative Normal Negative [facility] Comment on above: Result Comment: Nega tive Cutoff: <1000 ng/mL Performed By: #### 2 685674, 3293602, 26855571 ####[facility] [address] [place] [address] Barbiturates Screen Ql (U) Negative Normal Negative [facility] Comment on above: Result Comment: Nega tive Cutoff: <200 ng/mL Performed By: #### 2 385671, 6082936, 36023178 ####[facility] [address] [place] [address] Benzodiazepines Ql (U) Negative Normal Negative [facility] Comment on above: Result Comment: Nega tive Cutoff: <200 ng/mL Performed By: #### 2 135141, 0099000, 54245140 ####[facility] [address] [place] [address] Cocaine Ql (U) Negative Normal Negative [facility] Comment on above: Result Comment: Nega tive Cutoff: <300 ng/mL Performed By: #### 2 814243, 1406962, 21383588 ####[facility] [address] [place] [address] Opiates Screen Ql (U) Negative Normal Negative [facility] Comment on above: Result Comment: Nega tive Cutoff: <300 ng/mL Performed By: #### 2 973177, 9226953, 59957818 ####[facility] [address] [place] [address] Phencyclidine Screen method >25 ng/mL Ql (U) Negative Normal Negative [facility] Comment on above: Result Comment: Nega tive Cutoff: <25 ng/mL These drug screen results are to be used for medical (i.e., treatment) purposes only. Unconfirmed drug screening results must not be used for non-medical purposes (e.g., employment testing, legal testing). Performed By: #### 2 214804, 8434996, 95921528 ####[facility] [address] [address] Tetrahydrocannabinol Screen method >50 ng/mL Ql (U) Negative Normal Negative [facility] Comment on above: Result Comment: Nega tive Cutoff: <50 ng/mL Performed By: #### 2 681436, 5644250, 33163197 ####[address] [place] [address] UA With Cult Reflexon 2022 Bacteria LM Ql (Urine sed) 2+ /HPF Abnormal Trace [facility] Comment on above: Performed By: #### 2 591049, 2262973, 21165875 ####[facility] [address] [place] [address] Bilirubin Ql (U) Negative Normal Negative [facility] Comment on above: Performed By: #### 2 751031, 9827638, 56009290 ####[facility] [address] [place] [address] Clarity (U) SL CLOUDY Abnormal Clear [facility] Comment on above: Performed By: #### 2 231684, 6813061, 07488786 ####[facility] [address] [place] [address] Color (U) YELLOW Normal Yellow [facility] Comment on above: Performed By: #### 2 717046, 4562389, 12952463 ####[facility] [address] [place] [address] Epithelial cells.squamous LM.HPF (Urine sed) [#/Area] /[HPF] Normal 0-2 [facility] Comment on above: Performed By: #### 2 705182, 1612976, 18560260 ####[facility] [address] [place] [address] Glucose Test strip (U) [Mass/Vol] Negative Normal Negative [facility] Comment on above: Performed By: #### 2 891582, 0331705, 33375322 ####[facility] [address] [place] [address] Hemoglobin Ql (U) Negative Normal Negative [facility] Comment on above: Performed By: #### 2 888290, 4794514, 32815427 ####[address] [address] Ketones (U) [Mass/Vol] Negative Normal Negative [facility] Comment on above: Performed By: #### 2 135015, 6209521, 16030113 ####[address] [address] Arion.plasma/Arion.R BC (Bld) [Mass ratio] 4-20 Normal 0-3 [facility] Comment on above: Performed By: #### 2 022915, 8426967, 06452582 ####[address] [address] Nitrite Ql (U) Negative Normal Negative [facility] Comment on above: Performed By: #### 2 940143, 0824746, 21881866 ####[address] [address] pH (U) 6.5 [pH] Invalid Interpretation Code 5.0-9.0 [facility] Comment on above: Performed By: #### 2 330168, 9270120, 18901934 ####[address] [place] [address] Protein (U) [Mass/Vol] Negative Normal Negative [facility] Comment on above: Performed By: #### 2 706116, 7939886, 51341294 ####[address] [address] Specific gravity (U) [Rel density] 1.015 Invalid Interpretation Code 1.005-1.030 [facility] Comment on above: Performed By: #### 2 746871, 4222436, 24844862 ####[facility] [address] [place] [address] Type of Urine collection method Clean Catch Normal [facility] Comment on above: Performed By: #### 2 463091, 8170518, 30436261 ####[facility] [address] [place], [place] [address] Urobilinogen Qn (U) 0.2 {Yg'U}/dL Normal 0.0-1.0 [facility] Comment on above: Performed By: #### 2 113988, 6060163, 75617950 ####[facility] [address] [place] [address] WBC Auto Ql (U) 1+ Abnormal Negative [facility] Comment on above: Performed By: #### 2 232675, 7906363, 05235624 ####[facility] [address] [place] [address] WBC LM.HPF (Urine sed) [#/Area] 16-25 Abnormal 0-5 [facility] Comment on above: Performed By: #### 2 127165, 2417919, 66265600 ####[facility] [address] [place], [place] [address] URINALYSISOrdered By: Citlali Rogers on 10-18-2022 Bacteria [...] PM) Normal Negative [facility] UA Auto SS Arion.plasma/Arion.R BC (Bld) [Mass ratio] 4-20 /HPF Normal [...] Desc Clean Catch (10/18/22 1:37 PM) Normal [facility] UA Auto SS Urobilinogen Qn (U) 0.1997149 {Yg'U}/dL Normal 0.0 - 1.0 EU/dL [facility] [...] mGy = na DAP = na Normal [facility] eGFRon 10-18-2022 GFR/1.73 sq M.predicted among non-blacks MDRD (S/P/Bld) [Vol rate/Area] 138 mL/min/1.73 m2 Normal >=59 [facility] Comment on above: Order Comment: Order added by Discern Expert. Result Comment: Program Coordinator Executive Education sydnie kidney disease could be indicated at eGFR's of less than 60 mL/min/1.73m2. Kidney failure is indicated at less than 15 mL/min/1.73m2. Performed By: #### 1 0510123, 3088591, 6188368, 91281437, 8246738, 95492864, 27388262, 1684141, 8668761 #### [facility] [address] [place] [address] US PREG ANATOMY SINGLEon US PREG ANATOMY [...] CAMELIA MENDEZ Date: 2022-10-08 15:26 Normal [facility] CHLAMYDIA/GONOCOCCUS TETO (SW AB/URINE/PAPon 08-28-2022 Chlamydia trachomatis, TETO Negative Normal Negative [facility] Comment on above: Performed By: #### C T/NGNA #### [facility] [address] [place] [address] Dr. Maribell Perea Neisseria gonorrhoeae, TETO Negative Normal Negative [facility] Comment on above: Performed By: #### C T/NGNA #### [facility] [address] [address] [address] Maribell Perea VAGINITIS/VAGINOSIS DNA PROB Romeo 08-25-2022 Beatrice species Negative Normal Negative [facility] Comment on above: Performed By: #### V AGINT ####[facility] [address] [address]Dr. Maribell Perea Gardnerella vaginalis Negative Normal Negative [facility] Comment on above: Performed By: #### V AGINT ####[facility] [address] [address]DrJose Perea Trichomonas vaginalis Negative Normal Negative [facility] Comment on above: Performed By: #### V AGINT ####[facility] [address] [address]Dr. Maribell Perea HEP B SURFACE ANTIGEN SCREEN on 07-25-2022 HBsAg Screen Negative Normal Negative [facility] Comment on above: Performed By: #### H BSANS #### [facility] [address] [address] [address] Maribell Perea HEPATITIS C VIRUS AB W/ REFL EX QUANTon 07-25-2022 HCV AB Non-Reactive Normal Non Reactive [facility] Comment on above: Performed By: #### H CVPCRR #### [facility] [address] [place] [address] Dr. Maribell Perea Interpretation: Comment Normal [facility] Comment on above: Result Comment: Not infected with HCV unless early or acute infection is suspected (which may be delayed in an immunocompromised individual), or other evidence exists to indicate HCV infection. Performed By: #### H CVPCRR #### [facility] [address] [place] [address] Dr. Maribell Perea HIV 1 AND 2 WITH REFLEXon HIV Screen 4th Generation wRfx Non-Reactive Normal Non Reactive [facility] Comment on above: Result Comment: HIV Negative HIV-1/HIV-2 antibodies and HIV-1 p24 antigen were NOT detected. There is no laboratory evidence of HIV infection. Performed By: #### H IV12 #### [facility] [address] [place] [address] Dr. Maribell Perea RPR QUANTon 07-25-2022 Rapid Plasma Reagin, Quant Non-Reactive Normal NonRea<1:1 [facility] Comment on above: Result Comment: Pleada jeter Note: This test does not meet current guidelines for screening and diagnosis of syphilis. This test is intended for following treatment response in patients being treated for syphilis infection. To screen for syphilis infection, a reflex cascade that includes both RPR and a treponema-specific assay should be utilized, such as Treponema pallidum (Syphilis) Screening Apison (020523) or Rapid Plasma Reagin (RPR) Test With Reflex to Quantitative RPR and Confirmatory Treponema pallidum Antibodies (566768). Performed By: #### R PRQ #### [facility] [address] [place] [address] Dr. Maribell Perea RUBELLA AB IGGon 07-25-2022 Rubella Antibodies, IgG <0.90 Critically low Immune > 0.99 [facility] Comment on above: Result Comment: Non- immune <0.90 Equivocal 0.90 - 0.99 Immune >0.99 Performed By: #### R UBIGG #### [facility] [address] [address] [address] Maribell Perea CULTURE URINEon 07-23-2022 CULTURE URINE Culture Observations: NO GROWTH. Normal [facility] Comment on above: Performed By: #### U RCX ####[facility] [address] [address]Dr. Maribell Perea GLYCOHEMOGLOBIN A1Con 2022 ADA RECOMMENDATION SEE BELOW Normal [facility] Comment on above: Result Comment: ADA RECOMMENDED LIMIT 4.0 - 6.0 ADA THERAPEUTIC TARGET < 7.0 ACTION SUGGESTED > 7.0 Performed By: #### A 1C #### [facility] [address] [address] [address] Maribell Perea Glucose [Mass/Vol] 97 mg/dL Normal [facility] Comment on above: Performed By: #### A 1C #### [facility] [address] [place] [address] Dr. Maribell Perea HbA1c (Bld) [Mass fraction] 5.0 % Normal 4.5-6.2 [facility] Comment on above: Performed By: #### A 1C #### [facility] [address] [address] [address] Maribell Perea BEULAH BOX TEST PT SEND OUTo n 07-23-2022 SENT TO REF LAB 07/23/2022 Normal [facility] Comment on above: Performed By: #### N BOX #### [facility] [address] [address] [address] Maribell Perea TYPE AND SCREENon 07-23-2022 TYPE AND SCREEN Negative Normal [facility] Comment on above: Performed By: #### T NS ####[facility] [address] [address]Dr. Maribell Perea US PREG TVon 06-28-2022 US [...] by: CAMELIA MENDEZ Date: 2022-06-28 09:17 Normal [facility] Vital Signs Date Time Vital Sign Value Performing Clinician Facility 06-18-2023 15:11-0500 Blood Pressure Location [facility] 06-18-2023 15:11-0500 Body temperature 97.88 [degF] [facility] 06-18-2023 15:11-0500 Diastolic blood pressure 76 mm[Hg] [facility] 06-18-2023 15:11-0500 Heart rate 90 /min [facility] 06-18-2023 15:11-0500 SaO2% (BldA) [Mass fraction] 98 % [facility] 06-18-2023 15:11-0500 Systolic blood pressure 116 mm[Hg] [facility] 10-19-2022 13:00-0400 Hourly Rounding JonaEasyaula [facility] 10-19-2022 13:00-0400 Promise to Return [employer] 10-19-2022 12:23-0400 Heart rate 101 /min [employer] 10-19-2022 12:23-0400 SaO2% (BldA) [Mass fraction] 98 % [employer] 10-19-2022 12:23-0400 Body temperature 98.06 [degF] [employer] 10-19-2022 12:23-0400 Diastolic blood pressure 65 mm[Hg] Jona Cristin [facility] 10-19-2022 12:23-0400 Mean blood pressure 77 mm[Hg] Jona Cristin [facility] 10-19-2022 12:23-0400 Systolic blood pressure 102 mm[Hg] Jona Cristin [facility] 10-19-2022 12:15-0400 Hourly Rounding Jona Cristin [facility] 10-19-2022 12:15-0400 Promise to Return Jona Cristin [facility] 10-19-2022 11:21-0400 Hourly Rounding Jona Cristin [facility] 10-19-2022 11:21-0400 Promise to Return Jona Cristin [facility] 10-19-2022 08:24-0400 Heart rate 103 /min Jona Cristin [facility] 10-19-2022 08:24-0400 SaO2% (BldA) [Mass fraction] 98 % Jona Cristin [facility] 10-19-2022 08:24-0400 Diastolic blood pressure 61 mm[Hg] Jona Cristin [facility] 10-19-2022 08:24-0400 Mean blood pressure 72 mm[Hg] Jona Cristin [facility] 10-19-2022 08:24-0400 Systolic blood pressure 93 mm[Hg] Jona Cristin [facility] 10-19-2022 08:23-0400 Body temperature 98.24 [degF] Jona Cristin [facility] 10-19-2022 05:12-0400 Heart rate 95 /min Jona Cristin [facility] 10-19-2022 05:12-0400 SaO2% (BldA) [Mass fraction] 98 % Jona Cristin [facility] 10-19-2022 05:12-0400 Diastolic blood pressure 41 mm[Hg] Jona Cristin [facility] 10-19-2022 05:12-0400 Mean blood pressure 56 mm[Hg] Jona Cristin [facility] 10-19-2022 05:12-0400 Systolic blood pressure 86 mm[Hg] Jona Cristin [facility] 10-19-2022 05:12-0400 Body temperature 98.6 [degF] Jnoa Cristin [facility] 10-18-2022 22:59-0400 Respiratory rate 20 /min Jona Cristin [facility] 10-18-2022 21:45-0400 Mean blood pressure 84 mm[Hg] Jona Cristin [facility] 10-18-2022 21:45-0400 Respiratory rate 15 /min Jona Cristin [facility] 10-18-2022 21:00-0400 Mean blood pressure 82 mm[Hg] Jona Cristin [facility] 10-18-2022 21:00-0400 Respiratory rate 17 /min Jona Cristin [facility] 10-18-2022 20:00-0400 Mean blood pressure 89 mm[Hg] Jona Cristin [facility] 10-18-2022 14:08-0400 gluc 93 mg/dL Jona Cristin [facility] 10-18-2022 14:08-0400 gluc Jonaguillermo Amaral [facility] 10-18-2022 14:08-0400 Respiratory rate 15 /min Jona Amaral [facility] 10-18-2022 13:30-0400 Heart rate 108 /min Jonaguillermo Amaral [facility] 10-18-2022 13:30-0400 Respiratory rate 16 /min [facility] Encounters Encounter Date Encounter Type [...] 06-18-2023 Lab Drop off [facility] Start: 06-18-2023 End: 06-18-2023 [facility] Start: 10-22-2022 End: 10-22-2022 ambulatory Roslyn Valdes Facility:CD:[id number] Start: 10-18-2022 End: 10-19-2022 ambulatory Sahil BUTLER Facility:[facility] Start: 10-18-2022 End: 10-19-2022 Observation Jona Amaral [facility] Start: 10-06-2022 End: 10-07-2022 ambulatory KRISTINE BEJARANO . Facility:[facility] Start: 08-23-2022 End: 08-23-2022 ambulatory KRISTINE HILLMANEY . Facility:[facility] Start: 07-23-2022 End: 07-24-[address] IRVING LIMON . Facility:[facility] Start: 06-28-2022 End: 06-29-[address] IRVING LIMON . Facility:[facility] Start: 06-06-2022 ambulatory Esperanza Dong y:[facility] [place] Immunizations Immunization Date Immunization Notes [facility] meningococcal B vacc ine, recombinant, OMV, adjuvanted Jona [employer] [facility] [place] 02-09-2021 meningococcal oligosaccharide (groups A, C, Y and W-135) diphtheria toxoid conjugate vaccine (MCV4O) [employer] [facility] [place] 02-09-2021 hepatitis A vaccine, pediatric/adolescent dosage, 2 dose schedule [employer] [facility] [place] 07-14-2018 hepatitis A vaccine, adult dosage [employer] [facility] [place] 07-14-2018 HPV, unspecified formulation [employer] [facility] [place] 07-14-2018 meningococcal B vacc ine, fully recombinant [employer] [facility] [place] 12-26-2015 HPV, unspecified formulation [employer] [facility] [place] 12-26-2015 meningococcal ACWY vaccine, unspecified formulation [employer] [facility] [place] 12-26-2015 tetanus toxoid, unspecified formulation [employer] [facility] [place] 04-28-2009 influenza virus vacc ine, unspecified formulation Jona [employer] [facility] 04-28-2008 influenza virus vacc ine, unspecified formulation [employer] [facility] 02-26-2008 diphtheria, tetanus toxoids and acellular pertussis vaccine JonaEasyaula [facility] 02-26-2008 measles, mumps and rubella virus vaccine [employer] [facility] 02-26-2008 poliovirus vaccine, unspecified formulation [employer] [facility] 02-26-2008 varicella virus vaccine [facility] [employer] [facility] 10-27-2003 diphtheria, tetanus toxoids and acellular pertussis vaccine [employer] [facility] 10-27-2003 haemophilus influenz ae type b vaccine, PRP-OMP conjugate [employer] [facility] 10-27-2003 measles, mumps and rubella virus vaccine [employer] [facility] 10-27-2003 varicella virus vaccine Vincent nder [employer] [facility] 04-28-2003 diphtheria, tetanus toxoids and acellular pertussis vaccine [employer] [facility] 04-28-2003 haemophilus influenz ae type b vaccine, PRP-OMP conjugate [employer] [facility] 04-28-2003 hepatitis B vaccine, pediatric or pediatric/adolescent dosage Jona Cristin [facility] 04-28-2003 pneumococcal conjuga te vaccine, 13 valent Jona Cristin [facility] 04-28-2003 poliovirus vaccine, unspecified formulation Jona Cristin [facility] 2002 diphtheria, tetanus toxoids and acellular pertussis vaccine Jona Cristin [facility] 2002 haemophilus influenz ae type b vaccine, PRP-OMP conjugate Jona Cristin [facility] 2002 pneumococcal conjuga te vaccine, 13 valent Jona Cristin [facility] 2002 poliovirus vaccine, unspecified formulation Jona Cristin [facility] 2002 diphtheria, tetanus toxoids and acellular pertussis vaccine Jona Cristin [facility] 2002 haemophilus influenz ae type b vaccine, PRP-OMP conjugate [employer] [facility] 2002 hepatitis B vaccine, pediatric or pediatric/adolescent dosage Jona Cristin [facility] 2002 pneumococcal conjuga te vaccine, 13 valent Jona Cristin [facility] 2002 poliovirus vaccine, unspecified formulation Jona Cristin [facility] 2002 hepatitis B vaccine, pediatric or pediatric/adolescent dosage Jona Cristin [facility] Payers Date Payer Category Payer Unknown [id number] 2023 Private Health Insurance [id number] 2021 Private Health Insurance 2002 Unknown [id number] 2.16.84 [id number] 2002 Unknown [id number] 2.16.84 [id number] 2002 Unknown [id number] 2.16.84 0.1.403464.3.579.2.593 2002 Unknown [id number] 2.16.84 0.1.621271.3.579.2.593 2002 Unknown [id number] 2.16.8 40.1.161491.3.579.2.727 2002 Unknown [id number] 2.16.8 40.1.258091.3.579.2.727 2002 Unknown [id number] 2.16.84 0.1.886347.3.579.2.1259 2002 Unknown [id number] 2.16.84 0.1.477902.3.579.2.1259 2002 Unknown [id number] 2.16.84 0.1.934185.3.579.2.1259 2002 Unknown [id number] 2.16.84 0.1.205931.3.579.2.1259 2002 Unknown [id number] 2.16.84 0.1.067658.3.579.2.1259 2002 Unknown [id number] 2.16.84 0.1.192089.3.579.2.1259 2002 Unknown [id number] 2.16.84 0.1.123661.3.579.2.1259 2002 Unknown [id number] 2.16.84 0.1.524564.3.579.2.1259 1959 Self-pay 1959 Unknown [id number] Unknown [id number] 2.16.84 0.1.259839.3.579.2.593 Social History Date Type Detail Facility Tobacco [facility] Comment on above: denies Tobacco smoking status No Smokin g Status Entered [facility] Sex Assigned At Female [facility] Start: 06-18-2023 Tobacco smoking status Never s moked tobacco (finding) [facility] Comment on above: denies Tobacco smoking status Never Fishe [facility] Comment on above: denies Functional Status Date Assessment Result Facility 06-18-2023 Functional Status N/A [facility] 10-18-2022 Functional Status N/A [facility] 10-18-2022 Functional Status [facility] Clinical Notes 10-18-2022 to 06-18-2023 Note Date & Type Note Facility 06-18-2023 Hospital Discharge instructions Patient Education 06/18/2023 16:34:28 Pharyngitis, Xyjw-yj-Cpzv Pharyngitis Pharyngitis is a sore throat (pharynx). [...] Follow these instructions at home: Medicines Take thqr-obg-rxjwgvn and prescription medicines only as told by [...] and water are not available, use hand advertising director. Do not touch your eyes, nose, or [...] provider. Document Revised: 08/23/2021 Document Reviewed: 08/23/2021 [employer] Patient Education 2022 [employer]. 06/18/2023 16:34:25 Viral Illness, Adult Viral Illness, [...] Medicines to relieve symptoms. These can include ifiw-tte-qnrybjh medicine for pain and fever, medicines for cough or congestion, and medicines to relieve diarrhea. Antiviral medicines. These medicines are available only for certain types of viruses. Some viral illnesses can be prevented with vaccinations. A common example is the flu shot. Follow these instructions at home: Medicines Take nldt-bhd-ntxdwqj and prescription medicines only as told by [...] and water are not available, use hand advertising director. Avoid touching your nose, eyes, and mouth, [...] provider. Document Revised: 10/10/2020 Document Reviewed: 04/05/2020 [employer] Patient Education [address] [email or web address] [facility] 06-18-2023 Evaluation + Plan note Diagnostic Tests PendingGroup A Strep by PCR 06/18/23 [facility] 01-23-2023 Note Procedure History None. [...] drug abuse. ED physician discussed case with huller operator Dr. Butler and REAL ESTATE ASSISTANT Dr. Mortensen. Telemetry monitoring and echocardiogram was [...] this is written under the wrong FIN [facility] Comment on above: Result Comment: Elec [...] drug abuse. ED physician discussed case with huller operator Dr. Butler and REAL ESTATE ASSISTANT Dr. Mortensen. Telemetry monitoring and echocardiogram was [...] 78.2 % Lymph Auto - 12.3 % [place] Auto - 8.5 % Eos Auto - 0.6 % Basophil Auto - 0.4 % Neutro Absolute - 12.7 E9/L Lymph Absolute - 2.0 E9/L [place] Absolute - 1.4 E9/L Eos Absolute - [...] NEGATIVE1 UA Nitri (more content not included)... [facility] Comment on above: Result Comment: Elec [...] care. Jono Mortensen M.D. lr Dictated: 10/19/2022 [id number] Transcribed: 10/19/2022 cc:Irving Limon D.O. [facility] Comment on above: Result Comment: Elec tronically Signed By: Festus MOSS, Jono Layne\.br\Date and Time Signed: 10/20/22 02:24 EDT 10-19-2022 Note Order received, corinne t reviewed. Attempted PT evaluation at 1424 on 10/19/22. Pt. is out of room and has been discharged from acute medical facility prior to completion of PT evaluation. No PT charges. [facility] 10-19-2022 Note Echocardiology Procedure Exam Date/Time Accession # Ordering Dr. Longoria Transthoracic 10/19/2022 12:02 EDT [id number] Favian Ahumada DO Complete CPT code 49268 [id number] Reason for Exam (Echo Transthoracic Complete) Syncope Report [facility] [address] [place] [address] Adult Echocardiogram Report Name: SIDNEY CANDELARIO Study Date: 10/19/2022 11:33 AM BP: 93/61 mmHg Patient Location: [address] [place] [address] HR: 95 : 2000 Gender: Female Height: [...] Butler MD Transcribed by: MAYRA Technologist: ÁLVARO [facility] 10-19-2022 Evaluation + Plan note Extrac [...] made to ensure accuracy, however, inadvertently computerized transcription specialist mistakes may be present. Dr. Jona Amaral [...] Weight Diagnostic Tests Pending * Cortisol 10/19/22 [facility]05-12-2023 NoteChief Complaint Dizziness Reason for [...] not improve, she sought medical attention at [facility] emergency room. In theemergency room her [...] check Historical No q (more content not included)...[facility] Result Comment: Electronically Signed By: Isreal MOSS, Sahil Hughes\Date and Time Signed: 10/19/22 10:01 [id number] Hospital Discharge instructions Patient Education 10/19/2022 09:40:44 [...] Treatment for this condition includes: Antibiotic medicine. Wdkm-tnd-xqbpnsa medicines to treat discomfort. Drinking enough water [...] Follow these instructions at home: Medicines Take xdkn-loi-gfizprj and prescription medicines only as told by [...] provider. Document Revised: 01/06/2021 Document Reviewed: 01/06/2021 [employer] Patient Education 2022 [employer] 10/19/2022 09:40:42 Near-Syncope, Wtdx-qx-Vdyv Near-Syncope Near-syncope is when you suddenly feel [...] Follow these instructions at home: Medicines Take tpcf-opc-yrzbcwr and prescription medicines only as told by [...] provider. Document Revised: 10/05/2021 Document Reviewed: 10/05/2021 [employer] Patient Education 2022 [employer]. Follow Up Care 10/18/2022 13:28:40 With:Isreal MOSS, Sahil Fuller Address: [address] [place] [address]- [phone] When:2 weeks With:Roslyn Valdes MD, [facility], [facility] Address: [phone] When:2 to 4 days [facility]05-11-2023 NoteChief Complaint pt reports being [...] drug abuse. ED physician discussed case with huller operator Dr. Butler and REAL ESTATE ASSISTANT Dr. Mortensen. Telemetry monitoring and echocardiogram was [...] Lymph Auto: 11.2 % Low (10/18/22 14:39:00) [place] Auto: 8.3 % (10/18/22 14:39:00) Eos Auto: 0.5 % (10/18/22 14:39:00) Basophil Auto: 0.6 % (10/18/22 14:39:00) Neutro Absolute: 12.5 E9/L High (10/18/22 14:39:00) Lymph Absolute: 1.8 E9/L (10/18/22 14:39:00) [place] Absolute: 1.3 E9/L High (10/18/22 14:39:00) Eos [...] assessed the patient i (more content not included)...[facility]Result Comment: Electronically Signed By: Cristin MOSS, Jona Rivera\.br\Date and Time Signed: 10/18/22 19:03 EDTHospital course Narrative No data available for this section [facility] No data available for this section [facility] No data available for this section [facility] Summary Purpose Family History No Family History Records FoundNo Family History Records Found No data available for this section No data available for this section No Family History Records Found Advance Directives No Advanced Directives Records FoundNo Advanced Directives Records FoundNo Advanced Directives Records Found Additional Source Comments INFORMATION SOURCE (unrecogn ized section and content) DATE CREATED AUTHOR 10/13/2022 [facility] DATE CREATED AUTHOR AUTHOR'S ORGANIZ ATION 01/24/2023 [facility] DATE CREATED AUTHOR AUTHOR'S ORGANIZ ATION 02/22/2024 [facility] Patient Care team informatio n (unrecognized section and content) Personnel Name: Roslyn Valdes MD Address: Address: [address] [place] [address] Personnel Name: Roslyn Valdes MD Address: Address: [address] [place] [address] Personnel Name: Roslyn Valdes MD Address: Address: [address] [place] [address] FOR RECORDS PERTAINING TO PATIENTS WHO ARE [...] BE BASED ON THE PRIMARY CLINICAL RECORDS. [facility]. provides no warranty or guarantee of the accuracy or completeness of information in this document.
== END 2024-03-19 19:18 | disposition home or self-care (01) ==
LOC: LAB 19:17
PROVIDERS: Visit Provider Physician Assistant
DX: Z34.93 Encounter for supervision of normal pregnancy, unspecified, third trimester (principal)
CPT/HCPCS: 87081; 87150

== ENCOUNTER 2024-03-24 07:04 | Outpatient (OUT) | payer BC, SELFPAY ==
--- NOTE | 2024-03-24 | US_ITS ---
[address] [address] Patient Name: SIDNEY CANDELARIO MRN: [id number] date: 2000 Sex: F Assigned Patient Location: [facility] Current Patient Location: [facility] Accession/Order Number: [id number] Exam Date: 03/24/2024 14:45 Report Date: 03/24/2024 15:12 At the request of: MAGDA MCKENNA Procedure: US OB BPP w non-stress EXAMINATION: US OB BPP w non-stress HISTORY: SMALL FOR GESTATIONAL AGE P05.10 COMPARISON: No relevant comparison available. TECHNIQUE: Ultrasound biophysical profile was performed in the radiology department. non-reactive stress testing was performed by nursing staff in the birthing center. FINDINGS: BREATHING MOVEMENTS: 2 GROSS BODY MOVEMENTS: 2 TONE: 2 QUALITATIVE AMNIOTIC FLUID VOLUME: 2 PRESENTATION: Cephalic HEART RATE: 160.71 bpm AMNIOTIC FLUID VOLUME: 16.5 cm GESTATIONAL AGE: 37 weeks 0 days US/US OB BPP w non-stress IMPRESSION: Total biophysical profile score: 8 Electronically authenticated by: ANEL GIBBONS Date: 03/24/2024 15:12
--- OUTSIDE RECORDS SUMMARY | 2024-03-24 07:07 | XMS_ITS | CCD ---
Author Organization [facility] Care Team Providers Care Pricing Manager Name Role Phone BALA ., DR MAN [...] Consulting Unavailable Keisha, Roslyn Primary Care Physician Sahil BUTLER Consulting Unavailable Jona Amaral S Admitting Unavailable Jona Amaral Attending Unavailable Sahil BUTLER Consulting Unavailable Sahil BULTER Consulting Unavailable Roslyn Valdes Admitting Unavailable Esperanza SONG Attending Unavailable BALAMAGDA Attending Unavailable DARCI, KRISTINE Attending Unavailable BALA, MAGDA Attending Unavailable BALA, MAGDA Attending Unavailable DARCI, KRISTINE Attending Unavailable BALA, MAGDA Attending Unavailable DARCI, KRISTINE Attending Unavailable BALA, MAGDA Attending Unavailable DARCI, KRISTINE Attending Unavailable Medications Current Medications Medication Drug Class(es) Dates Sig (Normalized) Sig (Original) cephalexin 500 mg oral capsule (1 source) Cephalosporin Antibacterial Start: 10-19-2022 End: 10-23-2022 take 1 capsule by mouth every six hours Keflex 500 mg Cap 500 mg = 1 cap(s), Oral, q6hr, X 4 day(s), # 16 cap(s), Refills(s) 0, Pharmacy: [facility], 152, cm, 10/18/22 13:33:00 EDT, Height/Length [...] Range Facility Nursing Assessmenton 023 Nursing Assessment [id number] #1.00CD:127 Normal [facility] Discharge Instructionson Discharge Instructions [id number] #1.00CD:127 Normal [facility] C Urineon 10-20-2022 Bacteria identified Cx [...] R1: This test was performed at: [facility], [address] [place] [address], [address] [place] [address], [facility] Comment on above: Performed By: #### 2 909718, [id number], [id number] ####[place] [address] Cortisolon 10-20-2022 Cortisol [Mass/Vol] 18.4 microgram/dL Invalid Interpretation Code 6.2-19.4 [facility] Comment on above: Result Comment: Yudith jeter Note: The reference interval and flagging for this test is for an AM collection. If this is a PM collection please use: Cortisol PM: 2.3-11.9 Performed at: [facility] [id number] PhD Buck Montes Performed By: #### 2 [id number] #### [facility] [address] [place] [address] Auto Diffon 10-19-2022 Basophils/100 WBC (Bld) 0.4 % Normal 0.0-2.0 F [facility] Comment on above: Order Comment: Order Added by Discern Expert. Performed By: #### 2 094354 #### [facility] [address] [place] [address] Basophils/Leukocytes Auto (Bld) [Pure # fraction] 0.1 E9/L Normal 0.0-0.2 [facility] Comment on above: Order Comment: Order Added by Discern Expert. Performed By: #### 2 690905 #### [facility] [address] [place] [address] Eosinophils/100 WBC (Bld) 0.6 % Normal 0.0-8.0 [facility] Comment on above: Order Comment: Order Added by Discern Expert. Performed By: #### 2 755725 #### [facility] [address] [place] [address] Eosinophils/Leukocytes Auto (Bld) [Pure # fraction] 0.1 E9/L Normal 0.0-0.5 [facility] Comment on above: Order Comment: Order Added by Discern Expert. Performed By: #### 2 885214 #### [facility] [address] [place] [address] Lymphocytes/100 WBC (Bld) 12.3 % Low 14.0-50.0 [facility] Comment on above: Order Comment: Order Added by Discern Expert. Performed By: #### 2 382995 #### [facility] [address] [place] [address] Lymphocytes/Leukocytes Auto (Bld) [Pure # fraction] 2.0 E9/L Normal 1.0-4.0 [facility] Comment on above: Order Comment: Order Added by Discern Expert. Performed By: #### 2 296643 #### [facility] [address] [place] [address] Monocytes/100 WBC (Bld) 8.5 % Normal 4.0-14.0 F [facility] Comment on above: Order Comment: Order Added by Discern Expert. Performed By: #### 2 876164 #### [facility] [address] [place] [address] Monocytes/Leukocytes Auto (Bld) [Pure # fraction] 1.4 E9/L High 0.2-1.0 [facility] Comment on above: Order Comment: Order Added by Discern Expert. Performed By: #### 2 858317 #### [facility] [address] [place] [address] Neutrophils/100 WBC (Bld) 78.2 % High 36.0-75.0 [facility] Comment on above: Order Comment: Order Added by Discern Expert. Performed By: #### 2 001743 #### [facility] [address] [place] [address] Neutrophils/Leukocytes Auto (Bld) [Pure # fraction] 12.7 E9/L High 2.0-7.5 [facility] Comment on above: Order Comment: Order Added by Discern Expert. Performed By: #### 2 488100 #### [facility] [address] [place] [address] BMPon 10-19-2022 Anion gap [Moles/Vol] 10 mmol/L Normal 6-16 [facility] Comment on above: Performed By: #### 2 513077 #### [facility] [address] [place] [address] Calcium [Mass/Vol] 8.0 mg/dL Low 8.9-11.1 [facility] Comment on above: Performed By: #### 2 362309 #### [facility] [address] [place] [address] Chloride [Moles/Vol] 106 mmol/L Normal 101-111 [facility] Comment on above: Performed By: #### 2 715689 #### [facility] [address] [place] [address] CO2 [Moles/Vol] 23 mmol/L Normal 21-31 [facility] Comment on above: Performed By: #### 2 492308 #### [facility] [address] [place] [address] Creatinine [Mass/Vol] 0.5 mg/dL Normal 0.5-1.3 [facility] Comment on above: Performed By: #### 2 900369 #### [facility] [address] [place] [address] Glucose [Mass/Vol] 82 mg/dL Normal 55-199 [facility] Comment on above: Result Comment: If t his glucose result represents a fasting glucose, interpretation should refer to the following reference range: 55-99 mg/dL Performed By: #### 2 199650 #### [facility] [address] [place] [address] Potassium [Moles/Vol] 3.6 mmol/L Normal 3.5-5.3 [facility] Comment on above: Performed By: #### 2 490531 #### [facility] [address] [place] [address] Sodium [Moles/Vol] 135 mmol/L Normal 135-145 [facility] Comment on above: Performed By: #### 2 278292 #### [facility] [address] [place] [address] Urea nitrogen [Mass/Vol] 5 mg/dL Normal 5-21 [facility] Comment on above: Performed By: #### 2 085417 #### [facility] [address] [place] [address] Urea nitrogen/Creatinine [Mass ratio] 10 No Units Normal 10-20 [facility] Comment on above: Performed By: #### 2 565665 #### [facility] [address] [place] [address] CBC w/ Auto Diffon 3 Erythrocyte distribution width (RBC) [Ratio] 13.6 % Normal 10.9-14.2 [facility] Comment on above: Performed By: #### 2 832568 #### [facility] [address] [place] [address] Hematocrit (Bld) [Volume fraction] 34.1 % Normal 34.0-46.0 [facility] Comment on above: Performed By: #### 2 680365 #### [facility] [address] [place] [address] Hemoglobin (Bld) [Mass/Vol] 11.3 g/dL Low 12.0-16.0 [facility] Comment on above: Performed By: #### 2 404458 #### [facility] [address] [place] [address] MCH (RBC) [Entitic mass] 30.3 pg Normal 27.0-34.0 [facility] Comment on above: Performed By: #### 2 088657 #### [facility] [address] [place] [address] MCHC (RBC) [Mass/Vol] 33.2 g/dL Normal 31.4-36.0 [facility] Comment on above: Performed By: #### 2 238404 #### [facility] [address] [place] [address] MCV (RBC) [Entitic vol] 91.3 fL Normal 80.0-100.0 F [facility] Comment on above: Performed By: #### 2 469440 #### [facility] [address] [place] [address] Platelet mean volume (Bld) [Entitic vol] 8.9 fL Normal 6.4-10.8 [facility] Comment on above: Performed By: #### 2 377834 #### [facility] [address] [place] [address] Platelets (Bld) [#/Vol] 146.0 E9/L Low 150.0-500.0 [facility] Comment on above: Performed By: #### 2 294340 #### [facility] [address] [place] [address] RBC (Bld) [#/Vol] 3.7 E12/L Low 4.3-5.9 [facility] Comment on above: Performed By: #### 2 456485 #### [facility] [address] [place] [address] WBC corrected for nucl RBC Auto (Bld) [#/Vol] 16.3 E9/L High 4.0-11.0 [facility] Comment on above: Performed By: #### 2 010761 #### [facility] [address] [place] [address] CHEMISTRYOrdered By: SYSTEM SYSTEM on 10-19-2022 Anion [...] 138 mL/min/1.73 m2 Normal >=59mL/min/1 .73 m2 FT Chem S Glucose [Mass/Vol] 82 mg/dL Normal [...] Invalid Interpretation Code 10.10 - 27.10 pg/mL [facility] Comment on above: Result Comment: Crit [...] Pending Diagnostic Test Results None [facility] Appointments after Discharge Follow Up with Isreal MOSS, Sahil Fuller When: Within 2 weeks Where: [address] [place] [phone] Follow Up with Roslyn Valdes MD, FAM, MED When: Within 2 to 4 days Where: [phone] Medications What How Much When Instructions Next Dose New cephalexin (Keflex 500 mg Cap) 1 Capsules By Mouth Every 6 hours Duration: 4 Days Pickup at [facility] Pharmacy Information [facility]: [address] [place], [place] [id number] [phone] What How Much When Comments Stop Taking [...] condition include: (more content not included)... Normal [facility] ED Clinical Summaryon 2022 ED Clinical Summary [place] [address] ED Clinical Summary Person Information Name: SIDNEY CANDELARIO Ketty/[facility] Age: 22 Years : 2000 Sex: Female Language: Bulgarian PCP: Roslyn Valdes MD Marital Status: Visit [...] 10/18/2022 22:10:25 10/18/2022 22:10:25 10/18/2022 22:10:25 ADDRESS: [address] [place] [phone] PHYS DOC NOTES: MEDICAL INFORMATION: Prescriptions Given: Medications to Continue with No Changes Other Medications ibuprofen (ibuprofen 400 mg Tab) 1 Tablets By Mouth every 6 hours as needed for pain. Refills: 0. PATIENT EDUCATION INFORMATION: Instructions: Follow up: DIAGNOSIS: 1:Near syncope; 2:UTI (urinary tract infection); 3:Hypokalemia; Elevated troponin Normal [facility] ED Patient Education Noteon 10-19-2022 ED Patient Education Note Normal [facility] ED Patient Summaryon 023 ED Patient Summary [address] [address] Patient Discharge Instructions Person Information Name: SIDNEY CANDELARIO Age: 22 Years Arrival Date: 10/18/2022 13:27:27 Discharge Diagnosis: 1:Near syncope; 2:UTI (urinary tract infection); 3:Hypokalemia; Elevated troponin Primary Care Physician: Roslyn Valdes MD Provider Information Primary Provider: Favian Ahumada DO Advanced Knitting Machine Operator Helper:None The exam and treatment you received in the Emergency Department were for an urgent problem and are not intended as complete care. It is important that you follow up with a doctor, nurse practitioner, or physician?s casino assistant manager for ongoing care. If your symptoms become [...] opioids can be used to help relieve zofoskvh-el-mmgwyp pain and are often prescribed following a [...] struggling with addiction, tell your health home health care respiratory therapist and ask for guidance or call [facility]?S National Helpline at 8-492-249-EHZH. p Source: [place] Department of Health and Human Services/Center for Disease Control & Prevention [facility] (more content not included)... Normal [facility] HEMATOLOGYOrdered By: SYSTEM SYSTEM on 10-19-2022 [...] Inpatient Clinical Summaryon 10-19-2022 Inpatient Clinical Summary [place] [address] Clinical Summary Person Information: Name: SIDNEY CANDELARIO Age: 22 Years : 2000 Sex: Female PCP: Roslyn Valdes MD Marital Status: Race: White Ethnicity: Non- or Language: Bulgarian Visit Id: Visit Reason: Dizziness; UTI, NEAR SYNCOPE, HYPOKALEMIA Speciality: Acuity: Enc Type: Observation Med Service: Medical Arrival: 10/18/2022 13:27:27 Discharge: Dispo Type: Address: [address] [place] [phone] Provider Notes: Diagnosis: 1:Near syncope; 2:UTI (urinary [...] up: With: Address: When: Roslyn Valdes MD, [facility] [phone] Within 2 to 4 days Patient Education Information: Normal [facility] Inpatient Patient Summaryon 10-19-2022 Inpatient Patient Summary [place] [id number] Patient Discharge Instructions PERSON INFORMATION Name: SIDNEY CANDELARIO Date of : 2000 Current Date: 10/19/2022 09:40:25 PHYSICIANS Admitting Physician: Jona Amaral MD Primary Care Physician: Roslyn Valdes MD PCP Phone Number: [phone] Comment: Discharge Diagnosis: 1:Near syncope; 2:UTI (urinary [...] up: With: Address: When: Roslyn Valdes MD, [facility] [phone] Within 2 to 4 days In the [...] needed for pain. Refills: 0. Pharmacy Information: [email or web address] Comment: PATIENT EDUCATION INFORMATION Instructions: Medication Leaflets: You may receive a survey from [employer] asking you to rate your care experience. Your feedback is important and will help us understand what we do well and how we can improve the quality of care we provide to you, your loved ones and our community. It?s an honor to serve you. Thank you for choosing [facility] Normal [facility] Interdisciplinary Note - Christ e Manageron 10-19-2022 Interdisciplinary Note - Diabetes Trainer Pt is awake and alert in bed, previously rounded with Dr. Amaral. Spouse at bedside, Pt is aware of plan for scan today and plan to DC home later today. Declines any concerns or DC needs. Observation status reviewed. PCP verified and insurance information reviewed and DME discussed. Contact information provided and white board updated. Normal [facility] Comment on above: Result Comment: Elec tronically Signed By: Heraclio GRAFF, Sayda\.br\Date and Time Signed: 10/19/22 11:06 EDT Magnesiumon 10-19-2022 Magnesium [Mass/Vol] 1.7 mg/dL Normal 1.3-2.4 [facility] Comment on above: Performed By: #### 2 472194 #### [facility] [address] [place] [address] Monitor Recordon 10-19-2022 Monitor Record [id number]#1.00CD:127 Normal [facility] Monitor Record [id number]#1.00CD:127 Normal [facility] Monitor Record [id number]#1.00CD:127 Normal [facility] Monitor Record [id number]#1.00CD:127 Normal [facility] Patient Education - Texton 0 10-19-2022 [...] these instructions at home: Medicines ? Take bwkj-vxw-uoopqbd and prescription medicines only as told by [...] provider. Document Revised: 10/05/2021 Document Reviewed: 10/05/2021 [employer] Patient Education ? 2022 [employer]. Obstetrics and Gynecology Urinary Tract Infection, Adult [...] (neurogenic bladder). (more content not included)... Normal [facility] Phosphoruson 10-19-2022 Phosphate [Mass/Vol] 3.8 mg/dL Normal 1.9-4.6 [facility] Comment on above: Performed By: #### 2 438576 #### [facility] [address] [place] [address] Progress Note-Physicianon Progress Note-Physician Basic Informatio n [...] drug abuse. ED physician discussed case with head of partner development Dr. Butler and TAXONOMIST Dr. Mortensen. Telemetry monitoring and echocardiogram was [...] made to ensure accuracy, however, inadvertently computerized call person mistakes may be present. Dr. Jona Amaral [...] Lymph Auto: 12.3 % Low (10/19/22 05:47:00) Mercer Auto: 8.5 % (10/19/22 05:47:00) Eos Auto: 0.6 % (10/19/22 05:47:00) Basophil Auto: 0.4 % (10/19/22 05:47:00) Neutro Absolute: 12.7 E9/L High (10/19/22 05:47:00) Lymph Absolute: 2 E9/L (10/19/22 05:47:00) Mercer Absolute: 1.4 E9/L High (10/19/22 05:47:00) Eos [...] 05:47:00) Magnesium (more content not included)... Normal [facility] Comment on above: Result Comment: Elec tronically Signed By: Cristin MOSS, Jona Rivera\.br\Date and Time Signed: 10/19/22 12:08 EDT Troponin 9 Hr.on 10-19-2022 Troponin I.cardiac [Mass/Vol] 48.10 pg/mL Abnormal 10.10-27.10 [facility] Comment on above: Order Comment: pt is not discharged despite the discharge status. pt is in room 302; third shift phleb was notified not to cancel pending orders. [id number] 10/18/2022 22:15:32 EDT Result Comment: Crit ical [...] Sensitivity Troponin I Instructions For Use, Carina Cable, January 2018) Performed By: #### 1 [id number] #### [facility] [address] [place] [address] eGFRon 10-19-2022 GFR/1.73 sq M.predicted among non-blacks MDRD (S/P/Bld) [Vol rate/Area] 138 mL/min/1.73 m2 Normal >=59 [facility] Comment on above: Order Comment: Order added by Discern Expert. 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 Kidney failure is indicated at less than 15 mL/min/1.73m2. Performed By: #### 2 389058 #### [facility] [address] [place] [address] Acetamnphn Lvlon 10-18-2022 Acetaminophen [Mass/Vol] ug/mL Low 15-30 [facility] Comment on above: Performed By: #### 1 7010507, 7123198, 0356986, 48287546, 4877891, 82899334, 91407709, 0545733, 7353733 ####[facility] [address] [place] [address] Auto Diffon 10-18-2022 Basophils/100 WBC (Bld) 0.6 % Normal 0.0-2.0 [facility] Comment on above: Order Comment: Order Added by Discern Expert. Performed By: #### 1 8435965, 9123726, 6915967, 94182530, 4525421, 74562001, 05630269, 9470120, 4810287 ####[facility] [address] [place] [address] Basophils/Leukocytes Auto (Bld) [Pure # fraction] 0.1 E9/L Normal 0.0-0.2 [facility] Comment on above: Order Comment: Order Added by Discern Expert. Performed By: #### 1 2688757, 0978107, 4247610, 66974833, 7633422, 75827201, 85856719, 7155758, 4047440 ####[facility] [address] [place] [address] Eosinophils/100 WBC (Bld) 0.5 % Normal 0.0-8.0 [facility] Comment on above: Order Comment: Order Added by Discern Expert. Performed By: #### 1 7722487, 1031441, 3035788, 34523962, 5272421, 39755937, 84769666, 5042596, 6287758 ####[facility] [address] [place] [address] Eosinophils/Leukocytes Auto (Bld) [Pure # fraction] 0.1 E9/L Normal 0.0-0.5 [facility] Comment on above: Order Comment: Order Added by Discern Expert. Performed By: #### 1 5522995, 6435065, 1897577, 16300560, 3574887, 91276685, 08441143, 3149021, 4883608 ####[place] [address] [place] [address] Lymphocytes/100 WBC (Bld) 11.2 % Low 14.0-50.0 [facility] Comment on above: Order Comment: Order Added by Discern Expert. Performed By: #### 1 1516513, 2665019, 7085915, 21128842, 0285276, 91679130, 34036206, 7413011, 0232617 ####[place] [address] [place] [address] Lymphocytes/Leukocytes Auto (Bld) [Pure # fraction] 1.8 E9/L Normal 1.0-4.0 [facility] Comment on above: Order Comment: Order Added by Discern Expert. Performed By: #### 1 5589647, 6755658, 9719641, 90990226, 3552363, 54198241, 35698234, 5307050, 5908435 ####[facility] [address] [place] [address] Monocytes/100 WBC (Bld) 8.3 % Normal 4.0-14.0 [facility] Comment on above: Order Comment: Order Added by Discern Expert. Performed By: #### 1 0316600, 0049543, 8334902, 00915784, 8044731, 08374428, 57831117, 5749187, 3110811 ####[place] [address] [place] [address] Monocytes/Leukocytes Auto (Bld) [Pure # fraction] 1.3 E9/L High 0.2-1.0 [facility] Comment on above: Order Comment: Order Added by Discern Expert. Performed By: #### 1 0371132, 8435837, 8395173, 19575147, 4531359, 28951260, 80413893, 5864013, 7930426 ####[facility] [address] [place] [address] Neutrophils/100 WBC (Bld) 79.4 % High 36.0-75.0 [facility] Comment on above: Order Comment: Order Added by Discern Expert. Performed By: #### 1 8514324, 2650262, 7488598, 65946481, 9000877, 50427343, 40669607, 8701749, 3636985 ####[facility] [address] [place] [address] Neutrophils/Leukocytes Auto (Bld) [Pure # fraction] 12.5 E9/L High 2.0-7.5 [facility] Comment on above: Order Comment: Order Added by Discern Expert. Performed By: #### 1 3072456, 4810520, 0914089, 76000748, 6681201, 53994399, 36237275, 4537512, 1258336 ####[facility] [address] [place] [address] BMP 10-18-2022 Creatinine [Mass/Vol] 0.5 mg/dL Normal 0.5-1.3 [facility] Comment on above: Performed By: #### 1 4286634, 8794314, 2824574, 30193026, 4384391, 50859866, 72891970, 9919051, 7741153 #### [facility] [address] [place] [address] Urea nitrogen [Mass/Vol] 7 mg/dL Normal 5-21 [facility] Comment on above: Performed By: #### 1 0370939, 3244939, 4411817, 26176118, 3329526, 52231942, 64110169, 4809899, 1517652 #### [facility] [address] [place] [address] Urea nitrogen/Creatinine [Mass ratio] 14 No Units Normal 10-20 [facility] Comment on above: Performed By: #### 1 0256108, 3550057, 9709412, 04795138, 1469607, 64396996, 16464503, 3082586, 9528097 #### [facility] [address] [place] [address] Anion gap [Moles/Vol] 11 mmol/L Normal 6-16 [facility] Comment on above: Performed By: #### 1 2900544, 9028298, 8622678, 16446916, 2879773, 61639464, 77263844, 1438430, 9339619 #### [facility] [address] [place] [address] Calcium [Mass/Vol] 8.7 mg/dL Low 8.9-11.1 [facility] Comment on above: Performed By: #### 1 5536611, 2529967, 3730987, 79581490, 5893269, 89776068, 00073755, 6749459, 0139192 #### [facility] [address] [place] [address] Chloride [Moles/Vol] 102 mmol/L Normal 101-111 [facility] Comment on above: Performed By: #### 1 8446207, 3808622, 0248995, 40090690, 4985397, 79664079, 44216313, 8470275, 6623875 #### [facility] [address] [place] [address] CO2 [Moles/Vol] 26 mmol/L Normal 21-31 [facility] Comment on above: Performed By: #### 1 1654405, 7506667, 4743832, 71018060, 8774056, 44780646, 89484328, 1664600, 4117098 #### [facility] [address] [place] [address] Glucose [Mass/Vol] 97 mg/dL Normal 55-199 [facility] Comment on above: Result Comment: If t his glucose result represents a fasting glucose, interpretation should refer to the following reference range: 55-99 mg/dL Performed By: #### 1 4813276, 6432047, 8774075, 30874774, 8826773, 00164500, 60700977, 7248061, 1953797 #### [facility] [address] [place] [address] Potassium [Moles/Vol] 3.3 mmol/L Low 3.5-5.3 [facility] Comment on above: Performed By: #### 1 5420849, 2559540, 3477182, 33638134, 7238276, 12151616, 28861532, 9216405, 6502076 #### [facility] [address] [place] [address] Sodium [Moles/Vol] 136 mmol/L Normal 135-145 [facility] Comment on above: Performed By: #### 1 0770513, 1154034, 8477277, 83729676, 8405789, 66832811, 80985374, 9249967, 1878673 #### [facility] [address] [place] [address] CBC w/ Auto Diffon 3 Erythrocyte distribution width (RBC) [Ratio] 13.8 % Normal 10.9-14.2 [facility] Comment on above: Performed By: #### 1 0611601, 4485387, 7717332, 95710346, 9328668, 44874479, 58103940, 0427666, 5141429 #### [facility] [address] [place] [address] Hematocrit (Bld) [Volume fraction] 37.4 % Normal 34.0-46.0 [facility] Comment on above: Performed By: #### 1 1789294, 9993417, 9223913, 03542843, 0060428, 38482094, 99487524, 4875423, 3554348 #### [facility] [address] [place] [address] Hemoglobin (Bld) [Mass/Vol] 12.5 g/dL Normal 12.0-16.0 [facility] Comment on above: Performed By: #### 1 4482227, 1681190, 6212995, 95764129, 8851533, 31828590, 23376277, 2518021, 9060046 #### [facility] [address] [place] [address] MCH (RBC) [Entitic mass] 30.1 pg Normal 27.0-34.0 [facility] Comment on above: Performed By: #### 1 5227583, 8957751, 3517387, 41297655, 1002469, 61954849, 39045749, 6726174, 9635624 #### [facility] [address] [address] MCHC (RBC) [Mass/Vol] 33.6 g/dL Normal 31.4-36.0 [facility] Comment on above: Performed By: #### 1 4692896, 1912740, 0411024, 64791183, 0532395, 46063740, 21260782, 8693325, 7260904 #### [facility] [address] [place] [address] MCV (RBC) [Entitic vol] 89.7 fL Normal 80.0-100.0 F [facility] Comment on above: Performed By: #### 1 4639691, 0547409, 9712820, 49762239, 1045412, 59935882, 15126156, 0915847, 8170361 #### [facility] [address] [place] [address] Platelet mean volume (Bld) [Entitic vol] 9.2 fL Normal 6.4-10.8 [facility] Comment on above: Performed By: #### 1 2600104, 4829922, 8323468, 39732132, 1459357, 47081123, 79027112, 5536573, 3996642 #### [facility] [address] [place] [address] Platelets (Bld) [#/Vol] 146.0 E9/L Low 150.0-500.0 [facility] Comment on above: Performed By: #### 1 5982100, 3993396, 5749788, 05231459, 3074150, 96930408, 06833104, 4014200, 1216751 #### [facility] [address] [place] [address] RBC (Bld) [#/Vol] 4.2 E12/L Low 4.3-5.9 [facility] Comment on above: Performed By: #### 1 9698821, 7204534, 4336322, 97774009, 4766632, 55015833, 72931189, 7967870, 8165173 #### [facility] [address] [place] [address] WBC corrected for nucl RBC Auto (Bld) [#/Vol] 15.8 E9/L High 4.0-11.0 [facility] Comment on above: Result Comment: Slid e reviewed by 10/18/2022 15:09:43 EDT. Performed By: #### 1 6625033, 4478245, 2965887, 73495983, 6704777, 03891266, 96699195, 0295025, 7207087 #### [facility] [address] [place] [address] CHEMISTRYOrdered By: SYSTEM SYSTEM on 10-18-2022 Ethanol [Mass/Vol] mg/dL Normal <=7mg/dL [facility] R emisol Troponin I.cardiac [Mass/Vol] 53.00 pg/mL Invalid Interpretation Code 10.10 - 27.10 pg/mL [facility] Remisol Comment on above: Result Comment: Crit ical Result verified by previous result\ Critical Result I_hsTnI:53.0 Called to DAVIDA TAYLOR at by VALERIA ROGERS and read back for confirmation at 10/18/2022 21:36:32 Troponin I.cardiac [Mass/Vol] 49.60 pg/mL Invalid Interpretation Code 10.10 - 27.10 pg/mL [facility] Remisol Comment on above: Result Comment: Crit [...] Treatmenton 10-08 Consent for Treatment [id number] #1.00CD:127 Normal [facility] ED Note-Physicianon 10-19-19 ED Note-Physician Basic [...] patient assessment and treatment. Medical Decision Making [facility] Data External documents reviewed: Not applicable My EKG interpretation: As below My CT interpretation: Not applicable My X-ray interpretation: As below My Ultrasound interpretation: Not applicable Decision rules/scores evaluated: Not applicable Discussed with: Dr. Mortensen, TAXONOMIST. Dr. Butler, cardiology. Dr. Calhoun, Hospitalist. Treatment [...] tachycardia. I will call and discuss with TAXONOMIST and cardiology. (more content not included)... Normal [facility] Comment on above: Result Comment: Elec tronically Signed By: Favian Ahumada DO\.br\Date and Time Signed: 10/18/22 19:58 EDT Ethanolon 10-18-2022 Ethanol [Mass/Vol] mg/dL Normal <=7 [facility] Comment on above: Performed By: #### 2 071961 ####[facility] [address] [place] [address] HEMATOLOGYOrdered By: SYSTEM SYSTEM on 10-18-2022 Basophils/100 WBC (Bld) 0.6 % Normal 0.0 - 2.0 % [facility] HemeAutoSS Basophils/Leukocytes Auto (Bld) [Pure # fraction] [...] E9/L Low 150. 0 - 500.0 E9/L [facility] HemeAutoSS RBC (Bld) [#/Vol] 4.2 E12/L Low 4.3 - 5.9 E12/L [facility] HemeAutoSS WBC corrected for nucl RBC Auto (Bld) [#/Vol] 15.8 E9/L High 4.0 - 11.0 E9/L [facility] HemeAutoSS Comment on above: Result Comment: Bhargav e reviewed by HUGO 10/18/2022 15:09:43 EDT. Laboratory - Microbiology an d Antimicrobial susceptibilityOrdered By: Nyla Rajan on 10-18-2022 Bacteria identified Cx Nom (U) 100 cfu/ml Mixed skin contaminants [facility] Monitor Recordon 10-18-2022 Monitor Record [id number]#1.00CD:127 Normal [facility] Monitor Record [id number]#1.00CD:127 Normal [facility] Monitor Record [id number]#1.00CD:127 Normal [facility] PT & PTTon 10-18-2022 aPTT Coag (PPP) [Time] 25.8 second(s) Normal 25.1-36.5 [facility] Comment on above: Result Comment: Para [...] the same coagulation reagent and instrumentation as [facility]. Currently there are no coagulation studies available worldwide for children to 14 days, and no normal ranges. Heparin therapeutic range (represented by Anti-Factor Xa activity of 0.2 - 0.4 U/mL) corresponds to PTT of 56.6 - 109.0 sec. Performed By: #### 1 2825277, 8015491, 0476797, 70565183, 4773252, 30979088, 74179660, 9173273, 6382500 #### [facility] [address] [place] [address] INR Coag (PPP) [Relative time] 1.0 {INR} Invalid Interpretation Code [facility] Comment on above: Result Comment: INR results are specifically intended to assess patients stabilized on long-term Anticoagulation therapy suggested INR?s ?Less Intensive Anticoagulation? 2.0 ? 3.0 Conventional Range 3.0 ? 4.5 Performed By: #### 1 6154394, 1741322, 7265193, 56823174, 6974327, 74682476, 14787471, 2194792, 6189235 #### [facility] [address] [place] [address] PT Coag (PPP) [Time] 10.8 second(s) Normal 9.4-12.5 [facility] Comment on above: Result Comment: 15 [...] the same coagulation reagent and instrumentation as [facility]. Currently there are no coagulation studies available worldwide for children to 14 days, and no normal ranges. Performed By: #### 1 7112052, 7986976, 3717206, 36971186, 2738053, 06175440, 15842296, 2286443, 2124021 #### [facility] [address] [place] [address] Progress Note-Nurseon 2022 Progress Note-Nurse Patient: SIDNEY CANDELARIO Age: 22 years Sex: Female : 2000 Associated Diagnoses: None Author: Mell GRAFF, Meghna 25 week GI P0 in ER. heart tracing times 10 minutes obtained. Baseline 150bpm, moderate variability with accelerations increasing to 160. Audible movement. Pt states she can feel movement. Normal [facility] Salicylateon 10-18-2022 Salicylates [Mass/Vol] mg/dL Low 6-29 Fi [facility] Comment on above: Performed By: #### 1 0791723, 6026763, 2274086, 05813213, 2337308, 18650038, 41551673, 0723485, 8447377 ####[facility] [address] [place] [address] TSH With T4fr Reflexon 10-18 TSH Qn 1.50 m[IU]/L Normal 0.34-5.60 [facility] Comment on above: Performed By: #### 1 4540822, 8815160, 0363137, 99629345, 1373798, 48977542, 13822785, 8748996, 4581613 ####[facility] [address] [place] [address] Troponinon 10-18-2022 Troponin I.cardiac [Mass/Vol] 47.10 pg/mL Abnormal 10.10-27.10 [facility] Comment on above: Result Comment: Crit [...] Sensitivity Troponin I Instructions For Use, Carina Cable, January 2018) Performed By: #### 2 212514 #### [facility] [address] [place] [address] Troponin 0 Hr.on 10-18-2022 Troponin I.cardiac [Mass/Vol] 42.20 pg/mL Abnormal 10.10-27.10 [facility] Comment on above: Result Comment: Crit ical Result verified by repeat analysis\ Critical Result I_hsTnI:42.2 Called to AFVIAN AHUMADA at ER by VALERIA ROGERS and read back for confirmation at 10/18/2022 15:37:17 The 95% CI (Confidence Interval) PPV (Positive Predictive Value) for myocardial infarction in females is 38 pg/mL, in males 51 pg/mL. The results should be used in conjunction with clinical conditions of myocardial infarction. (eRelyx High Sensitivity Troponin I Instructions For Use, [employer]ony, January 2018) Performed By: #### 1 4227273, 5104433, 6816572, 13316326, 9865490, 04428896, 66465024, 9653730, 2472827 ####[facility] [address] [place] [address] Troponin 3 Hr.on 10-18-2022 Troponin I.cardiac [Mass/Vol] 49.60 pg/mL Abnormal 10.10-27.10 [facility] Comment on above: Result Comment: Crit [...] conjunction with clinical conditions of myocardial infarction. (eRelyx High Sensitivity Troponin I Instructions For Use, [employer], January 2018) Performed By: #### 1 3629719 #### [facility] [address] [place] [address] Troponin 6 Hr.on 10-18-2022 Troponin I.cardiac [Mass/Vol] 53.00 pg/mL Abnormal 10.10-27.10 [facility] Comment on above: Result Comment: Crit [...] Sensitivity Troponin I Instructions For Use, Carina Cable, January 2018) Performed By: #### 1 2526364 #### [facility] [address] [place] [address] U Drug Screenon 10-18-2022 Amphetamines Screen method >1000 ng/mL Ql (U) Negative Normal Negative [facility] Comment on above: Result Comment: Nega tive Cutoff: <1000 ng/mL Performed By: #### 2 911849, 4812086, 09953987 ####[address] [place] [address] Barbiturates Screen Ql (U) Negative Normal Negative [facility] Comment on above: Result Comment: Nega tive Cutoff: <200 ng/mL Performed By: #### 2 158892, 5802441, 05878507 ####[address] [place] [address] Benzodiazepines Ql (U) Negative Normal Negative [facility] Comment on above: Result Comment: Nega tive Cutoff: <200 ng/mL Performed By: #### 2 244922, 3973393, 21259405 ####[address] [place] [address] Cocaine Ql (U) Negative Normal Negative [facility] Comment on above: Result Comment: Nega tive Cutoff: <300 ng/mL Performed By: #### 2 321632, 3233728, 24981270 ####[address] [place] [address] Opiates Screen Ql (U) Negative Normal Negative [facility] Comment on above: Result Comment: Nega tive Cutoff: <300 ng/mL Performed By: #### 2 468147, 3680008, 83240611 ####[facility] [address] [place] [address] Phencyclidine Screen method >25 ng/mL Ql (U) Negative Normal Negative [facility] Comment on above: Result Comment: Nega tive Cutoff: <25 ng/mL These drug screen results are to be used for medical (i.e., treatment) purposes only. Unconfirmed drug screening results must not be used for non-medical purposes (e.g., employment testing, legal testing). Performed By: #### 2 242426, 4780529, 81836457 ####[facility] [address] [place] [address] Tetrahydrocannabinol Screen method >50 ng/mL Ql (U) Negative Normal Negative [facility] Comment on above: Result Comment: Nega tive Cutoff: <50 ng/mL Performed By: #### 2 402455, 6344588, 65612356 ####[place] [address] UA With Cult Reflexon 2022 Bacteria LM Ql (Urine sed) 2+ /HPF Abnormal Trace [facility] Comment on above: Performed By: #### 2 472261, 0792272, 32281908 ####[facility] [address] [place] [address] Bilirubin Ql (U) Negative Normal Negative [facility] Comment on above: Performed By: #### 2 843858, 7322701, 39947710 ####[address] [address] Clarity (U) SL CLOUDY Abnormal Clear [facility] Comment on above: Performed By: #### 2 992976, 3083381, 01905575 ####[facility] [address] [place] [address] Color (U) YELLOW Normal Yellow [facility] Comment on above: Performed By: #### 2 087982, 8166896, 48134280 ####[address] [address] Epithelial cells.squamous LM.HPF (Urine sed) [#/Area] /[HPF] Normal 0-2 [facility] Comment on above: Performed By: #### 2 578855, 1765702, 26621311 ####[facility] [address] [place] [address] Glucose Test strip (U) [Mass/Vol] Negative Normal Negative [facility] Comment on above: Performed By: #### 2 524611, 0622290, 94838262 ####[facility] [address] [place] [address] Hemoglobin Ql (U) Negative Normal Negative [facility] Comment on above: Performed By: #### 2 043343, 8124534, 71243092 ####[facility] [address] [place] [address] Ketones (U) [Mass/Vol] Negative Normal Negative [facility] Comment on above: Performed By: #### 2 022240, 8627553, 98682705 ####[facility] [address] [place] [address] [place].plasma/[place].R BC (Bld) [Mass ratio] 4-20 Normal 0-[address] [facility] Comment on above: Performed By: #### 2 454131, 7120202, 29055838 ####[facility] [address] [place] [address] Nitrite Ql (U) Negative Normal Negative [facility] Comment on above: Performed By: #### 2 248320, 6431393, 96202678 ####[facility] [address] [place] [address] pH (U) 6.5 [pH] Invalid Interpretation Code 5.0-9.0 [facility] Comment on above: Performed By: #### 2 350177, 8917955, 89521648 ####[facility] [address] [place] [address] Protein (U) [Mass/Vol] Negative Normal Negative [facility] Comment on above: Performed By: #### 2 330907, 8678950, 08717859 ####[facility] [address] [place] [address] Specific gravity (U) [Rel density] 1.015 Invalid Interpretation Code 1.005-1.030 [facility] Comment on above: Performed By: #### 2 314653, 7447436, 94992578 ####[facility] [address] [place], [place] [address] Type of Urine collection method Clean Catch Normal [facility] Comment on above: Performed By: #### 2 886864, 3700842, 20097362 ####[place] [address] Urobilinogen Qn (U) 0.2 {Yg'U}/dL Normal 0.0-1.0 [facility] Comment on above: Performed By: #### 2 461139, 7392688, 25826941 ####[place] [address] WBC Auto Ql (U) 1+ Abnormal Negative [facility] Comment on above: Performed By: #### 2 216118, 0025350, 91951027 ####[facility] [address] [place], [place] [address] WBC LM.HPF (Urine sed) [#/Area] 16-25 Abnormal 0-5 [facility] Comment on above: Performed By: #### 2 593674, 2445179, 39623689 ####[place] [address] URINALYSISOrdered By: Citlali Rogers on 10-18-2022 Bacteria [...] LM.HPF (Urine sed) [#/Area] /[HPF] Normal 0-2/HPF [facility] UA Aut o SS Glucose Test strip (U) [Mass/Vol] Negative (10/18/22 1:37 PM) Normal Negative [facility] UA Auto SS Hemoglobin Ql (U) Negative (10/18/22 1:37 PM) Normal Negative [facility] UA Auto SS Ketones (U) [Mass/Vol] Negative (10/18/22 1:37 PM) Normal Negative [facility] UA Auto SS [place].plasma/[place].R BC (Bld) [Mass ratio] 4-20 /HPF Normal 0-3/HPF [facility] Au to SS Nitrite Ql (U) Negative (10/18/22 1:37 PM) Normal Negative [facility] UA Auto SS pH (U) 6.5 *NA* (10/18/22 1:37 PM) Invalid Interpretation Code 5.0 - 9.0 [facility] UA Auto SS Protein (U) [Mass/Vol] Negative (10/18/22 1:37 PM) Normal Negative [facility] UA Auto SS Specific gravity (U) [Rel density] 1.015 *NA* (10/18/22 1:37 PM) Invalid Interpretation Code 1.005 - 1.030 [facility] UA Auto SS UA Spec Desc Clean Catch (10/18/22 1:37 PM) Normal [facility] UA Auto SS Urobilinogen Qn (U) 0.6157316 {Yg'U}/dL Normal 0.0 - 1.0 EU/dL [facility] UA Auto SS WBC Auto Ql (U) [...] mGy = na DAP = na Normal [facility] eGFRon 10-18-2022 GFR/1.73 sq M.predicted among non-blacks MDRD (S/P/Bld) [Vol rate/Area] 138 mL/min/1.73 m2 Normal >=59 [facility] Comment on above: Order Comment: Order added by Discern Expert. 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 Kidney failure is indicated at less than 15 mL/min/1.73m2. Performed By: #### 1 2148283, 5388465, 7195834, 25985085, 6030539, 56037803, 05209506, 5756059, 2379126 #### [facility] [address] [place] [address] US PREG ANATOMY SINGLEon US PREG ANATOMY [...] CAMELIA MENDEZ Date: 2022-10-08 15:26 Normal [facility] CHLAMYDIA/GONOCOCCUS TETO ( AB/URINE/PAPon 08-28-2022 Chlamydia trachomatis, TETO Negative Normal Negative [facility] Comment on above: Performed By: #### C T/NGNA #### [facility] [address] [place] [address] Dr. Maribell Perea Neisseria gonorrhoeae, TETO Negative Normal Negative [facility] Comment on above: Performed By: #### C T/NGNA #### [facility] [address] [address] [address] Maribell Perea VAGINITIS/VAGINOSIS DNA PROB Romeo 08-25-2022 Beatrice species Negative Normal Negative [facility] Comment on above: Performed By: #### V AGINT ####[facility] [address] [place] [address] [address]Dr. Maribell Perea Gardnerella vaginalis Negative Normal Negative [facility] Comment on above: Performed By: #### V AGINT ####[facility] [address] [address]Dr. Maribell Perea Trichomonas vaginalis Negative Normal Negative [facility] Comment on above: Performed By: #### V AGINT ####[facility] [address] [place] [address]DrJose Perea HEP B SURFACE ANTIGEN SCREEN on 07-25-2022 HBsAg Screen Negative Normal Negative [facility] Comment on above: Performed By: #### H BSANS #### [facility] [address] [address] [address] Maribell Perea HEPATITIS C VIRUS AB W/ REFL EX QUANTon 07-25-2022 HCV AB Non-Reactive Normal Non Reactive [facility] Comment on above: Performed By: #### H CVPCRR #### [facility] [address] [place] [address] Dr. Maribell Perea Interpretation: Comment Normal [facility] Comment on above: Result Comment: Not infected with HCV unless early or acute infection is suspected (which may be delayed in an immunocompromised individual), or other evidence exists to indicate HCV infection. Performed By: #### H CVPCRR #### [facility] [address] [place] [address] Dr. Maribell Perea HIV 1 AND 2 WITH REFLEXon HIV Screen 4th Generation wRfx Non-Reactive Normal Non Reactive [facility] Comment on above: Result Comment: HIV Negative HIV-1/HIV-2 antibodies and HIV-1 p24 antigen were NOT detected. There is no laboratory evidence of HIV infection. Performed By: #### H IV12 #### [facility] [address] [place] [address] Dr. Maribell Perea RPR QUANTon 07-25-2022 Rapid Plasma Reagin, Quant Non-Reactive Normal NonRea<1:1 [facility] Comment on above: Result Comment: Plea se Note: This test does not meet current guidelines for screening and diagnosis of syphilis. This test is intended for following treatment response in patients being treated for syphilis infection. To screen for syphilis infection, a reflex cascade that includes both RPR and a treponema-specific assay should be utilized, such as Treponema pallidum (Syphilis) Screening Bates (415658) or Rapid Plasma Reagin (RPR) Test With Reflex to Quantitative RPR and Confirmatory Treponema pallidum Antibodies (041517). Performed By: #### R PRQ #### [facility] [address] [place] [address] Dr. Maribell Perea RUBELLA AB IGGon 07-25-2022 Rubella Antibodies, IgG <0.90 Critically low Immune > 0.99 [facility] Comment on above: Result Comment: Non- immune <0.90 Equivocal 0.90 - 0.99 Immune >0.99 Performed By: #### R UBIGG #### [facility] [address] [address] [address] Maribell Perea CULTURE URINEon 07-23-2022 CULTURE URINE Culture Observations: NO GROWTH. Normal [facility] Comment on above: Performed By: #### U RCX ####[facility] [address] [address]Dr. Maribell Perea GLYCOHEMOGLOBIN A1Con 2022 ADA RECOMMENDATION SEE BELOW Normal [facility] Comment on above: Result Comment: ADA RECOMMENDED LIMIT 4.0 - 6.0 ADA THERAPEUTIC TARGET < 7.0 ACTION SUGGESTED > 7.0 Performed By: #### A 1C #### [facility] [address] [place] [address] Dr. Maribell Perea Glucose [Mass/Vol] 97 mg/dL Normal [facility] Comment on above: Performed By: #### A 1C #### [facility] [address] [place] [address] Dr. Maribell Perea HbA1c (Bld) [Mass fraction] 5.0 % Normal 4.5-6.2 [facility] Comment on above: Performed By: #### A 1C #### [facility] [address] [place] [address] Dr. Maribell Perea BEULAH BOX TEST PT SEND OUTo n 07-23-2022 SENT TO REF LAB 07/23/2022 Normal [facility] Comment on above: Performed By: #### N BOX #### [facility] [address] [place] [address] Dr. Maribell Perea TYPE AND SCREENon 07-23-2022 TYPE AND SCREEN Negative Normal [facility] Comment on above: Performed By: #### T NS ####[facility] [address] [place], [place] [address]Dr. Maribell Perea US PREG TVon 06-28-2022 US [...] by: CAMELIA MENDEZ Date: 2022-06-28 09:17 Normal [facility] Vital Signs Date Time Vital Sign Value Performing Clinician Facility 06-18-2023 15:11-0500 Blood Pressure Location [facility] 06-18-2023 15:11-0500 Body temperature 97.88 [degF] [facility] 06-18-2023 15:11-0500 Diastolic blood pressure 76 mm[Hg] [facility] 06-18-2023 15:11-0500 Heart rate 90 /min [facility] 06-18-2023 15:11-0500 SaO2% (BldA) [Mass fraction] 98 % [facility] 06-18-2023 15:11-0500 Systolic blood pressure 116 mm[Hg] [facility] 10-19-2022 13:00-0400 Hourly Rounding [employer] [facility] 10-19-2022 13:00-0400 Promise to Return [employer] [facility] 10-19-2022 12:23-0400 Heart rate 101 /min [employer] [facility] 10-19-2022 12:23-0400 SaO2% (BldA) [Mass fraction] 98 % [employer] [facility] 10-19-2022 12:23-0400 Body temperature 98.06 [degF] [facility] 10-19-2022 12:23-0400 Diastolic blood pressure 65 mm[Hg] [facility]ona Crist[facility] 10-19-2022 12:23-0400 Mean blood pressure 77 mm[Hg] [facility]ona Cristni [facility] 10-19-2022 12:23-0400 Systolic blood pressure 102 mm[Hg] Jona Cristin [facility] 10-19-2022 12:15-0400 Hourly Rounding Jona Cristin [facility] 10-19-2022 12:15-0400 Promise to Return Jona Crist[facility] 10-19-2022 11:21-0400 Hourly Rounding Jona Cristin [facility] 10-19-2022 11:21-0400 Promise to Return Jona Crist[facility] 10-19-2022 08:24-0400 Heart rate 103 /min Jona Cristin [facility] 10-19-2022 08:24-0400 SaO2% (BldA) [Mass fraction] 98 % Jona Cristin [facility] 10-19-2022 08:24-0400 Diastolic blood pressure 61 mm[Hg] Jona Cristin [facility] 10-19-2022 08:24-0400 Mean blood pressure 72 mm[Hg] Jona Cristin [facility] 10-19-2022 08:24-0400 Systolic blood pressure 93 mm[Hg] Jona Cristin [facility] 10-19-2022 08:23-0400 Body temperature 98.24 [degF] Jona Cristin [facility] 10-19-2022 05:12-0400 Heart rate 95 /min Jona Cristin [facility] 10-19-2022 05:12-0400 SaO2% (BldA) [Mass fraction] 98 % Jona Cristin [facility] 10-19-2022 05:12-0400 Diastolic blood pressure 41 mm[Hg] Jona Cristin [facility] 10-19-2022 05:12-0400 Mean blood pressure 56 mm[Hg] Jona Cristin [facility] 10-19-2022 05:12-0400 Systolic blood pressure 86 mm[Hg] Jona Cristin [facility] 10-19-2022 05:12-0400 Body temperature 98.6 [degF] Jona Cristin [facility] 10-18-2022 22:59-0400 Respiratory rate 20 /min Jona Cristin [facility] 10-18-2022 21:45-0400 Mean blood pressure 84 mm[Hg] Jona Cristin [facility] 10-18-2022 21:45-0400 Respiratory rate 15 /min Jona Cristin [facility] 10-18-2022 21:00-0400 Mean blood pressure 82 mm[Hg] Jona Cristin [facility] 10-18-2022 21:00-0400 Respiratory rate 17 /min Jona Cristin [facility] 10-18-2022 20:00-0400 Mean blood pressure 89 mm[Hg] Jona Cristin [facility] 10-18-2022 14:08-0400 gluc 93 mg/dL [facility] Cristin [facility] 10-18-2022 14:08-0400 gluc [facility] 10-18-2022 14:08-0400 Respiratory rate 15 /min [facility] 10-18-2022 13:30-0400 Heart rate 108 /min [facility] 10-18-2022 13:30-0400 Respiratory rate 16 /min [facility] Encounters Encounter Date Encounter Type Care Provider Facility Start: 03-19-2024 End: 03-19-2024 ambulatory KRISTINE DARCI Not Available Start: 03-05-2024 End: 03-05-2024 ambulatory MAGDA BALA Not Available Start: 02-20-2024 End: 02-20-2024 ambulatory KRISTINE DARCI Not Available Start: 02-05-2024 End: 02-05-2024 ambulatory MAGDA BALA [...] End: 06-18-2023 Lab Drop off Mike Fuentes [facility] Start: 06-18-2023 End: 06-18-2023 Patient encounter procedure Mike Fuentes [facility] Start: 10-22-2022 End: 10-22-2022 ambulatory Roslyn Valdes Facility:CD:[id number] Start: 10-18-2022 End: 10-19-2022 ambulatory Sahil BUTLER Facility:[facility] Start: 10-18-2022 End: 10-19-2022 Observation Jonaguillermo Amaral [facility] Start: 10-06-2022 End: 10-07-2022 ambulatory KRISTINE BEJARANO . Facility: Start: 08-23-2022 End: 08-23-2022 ambulatory KRISTINE BEJARANO . Facility: Start: 07-23-2022 End: 07-24-[address] MAGDA LIMON . Facility: Start: 06-28-2022 End: 06-29-[address] MAGDA LIMON . Facility: Start: 06-06-2022 ambulatory Esperanza Dong y:[facility] [place] Immunizations Immunization Date Immunization Notes Care Provider [facility] 02-09-2021 meningococcal B vacc ine, recombinant, OMV, adjuvanted Jona Amaral [facility] [place] 02-09-2021 meningococcal oligosaccharide (groups A, C, Y and W-135) diphtheria toxoid conjugate vaccine (MCV4O) Jona [employer] [facility] [place] 02-09-2021 hepatitis A vaccine, pediatric/adolescent dosage, 2 dose schedule Jona Mullener [facility] [place] 07-14-2018 hepatitis A vaccine, adult dosage Jona [employer] [facility] [place] 07-14-2018 HPV, unspecified formulation JonaHaloSource [facility] [place] 07-14-2018 meningococcal B vacc ine, fully recombinant [employer] [facility] [place] 12-26-2015 HPV, unspecified formulation Jona [employer] [facility] [place] 12-26-2015 meningococcal ACWY vaccine, unspecified formulation [employer] [facility] [place] 12-26-2015 tetanus toxoid, unspecified formulation [facility] [place] 04-28-2009 influenza virus vacc ine, unspecified formulation JonaAnimeepleer [facility] [place] 04-28-2008 influenza virus vacc ine, unspecified formulation [employer] [facility] [place] 02-26-2008 diphtheria, tetanus toxoids and acellular pertussis vaccine [facility] 02-26-2008 measles, mumps and rubella virus vaccine [employer] [facility] 02-26-2008 poliovirus vaccine, unspecified formulation [employer] [facility] 02-26-2008 varicella virus vaccine Vincent Silith.IOr [employer] [facility] 10-27-2003 diphtheria, tetanus toxoids and acellular pertussis vaccine [employer] [facility] [place] 10-27-2003 haemophilus influenz ae type b vaccine, PRP-OMP conjugate [employer] [facility] 10-27-2003 measles, mumps and rubella virus vaccine [employer] [facility] 10-27-2003 varicella virus vaccine Vincent nder [facility] [place] 04-28-2003 diphtheria, tetanus toxoids and acellular pertussis vaccine [facility] 04-28-2003 haemophilus influenz ae type b vaccine, PRP-OMP conjugate [employer] [facility] 04-28-2003 hepatitis B vaccine, pediatric or pediatric/adolescent dosage Jona Cristin [facility] 04-28-2003 pneumococcal conjuga te vaccine, 13 valent Jona [employer] [facility] 04-28-2003 poliovirus vaccine, unspecified formulation [employer] [facility] 2002 diphtheria, tetanus toxoids and acellular pertussis vaccine Jona [employer] [facility] 2002 haemophilus influenz ae type b vaccine, PRP-OMP conjugate [employer] [facility] 2002 pneumococcal conjuga te vaccine, 13 valent [employer] [facility] 2002 poliovirus vaccine, unspecified formulation [employer] [facility] 2002 diphtheria, tetanus toxoids and acellular pertussis vaccine [employer] [facility] 2002 haemophilus influenz ae type b vaccine, PRP-OMP conjugate [employer] [facility] 2002 hepatitis B vaccine, pediatric or pediatric/adolescent dosage Jona [employer] [facility] 2002 pneumococcal conjuga te vaccine, 13 valent [employer] [facility] 2002 poliovirus vaccine, unspecified formulation [employer] [facility] [place] 2002 hepatitis B vaccine, pediatric or pediatric/adolescent dosage Jona Amaral [facility] [place] Payers Date Payer Category Payer Unknown [id number] [address] [facility] [id number] 2021 Private Health Insurance 2002 Unknown [id number] 2.16.84 [id number] 2002 Unknown [id number] 2.16.84 0.1.220662.3.579.2.593 2002 Unknown [id number] 2.16.84 0.1.437046.3.579.2.593 2002 Unknown [id number] 2.16.84 0.1.137379.3.579.2.593 2002 Unknown [id number] 2.16.8 40.1.304344.3.579.2.727 2002 Unknown [id number] 2.16.8 40.1.005916.3.579.2.727 2002 Unknown [id number] 2.16.84 0.1.732952.3.579.2.1259 2002 Unknown [id number] 2.16.84 0.1.220467.3.579.2.1259 2002 Unknown [id number] 2.16.84 0.1.205977.3.579.2.1259 2002 Unknown [id number] 2.16.84 0.1.973873.3.579.2.1259 2002 Unknown [id number] 2.16.84 0.1.682770.3.579.2.1259 2002 Unknown [id number] 2.16.84 0.1.369679.3.579.2.1259 2002 Unknown [id number] 2.16.84 0.1.893480.3.579.2.1259 2002 Unknown [id number] 2.16.84 0.1.793248.3.579.2.1259 2002 Unknown [id number] 2.16.84 0.1.708825.3.579.2.1259 2002 Unknown [id number] 2.16.84 0.1.003498.3.579.2.1259 1959 Self-pay 1959 Unknown [id number] Unknown [id number] 2.16.84 0.1.375455.3.579.2.593 Social History Date Type Detail Facility Tobacco [facility] Comment on above: denies Tobacco smoking status No Smokin g Status Entered [facility] Sex Assigned At Female [facility] Start: 06-18-2023 Tobacco smoking status Never s moked tobacco (finding) [facility] Comment on above: denies Tobacco smoking status Never [facility] Comment on above: denies Functional Status Date Assessment Result Facility 06-18-2023 Functional Status N/A [facility] 10-18-2022 Functional Status N/A [facility] 10-18-2022 Functional Status [facility] Clinical Notes 10-18-2022 to 06-18-2023 Note Date & Type Note Facility 06-18-2023 Hospital Discharge instructions Patient Education 06/18/2023 16:34:28 Pharyngitis, Avfh-ji-Idxo Pharyngitis Pharyngitis is a sore throat (pharynx). [...] Follow these instructions at home: Medicines Take ynds-nlm-smkradq and prescription medicines only as told by [...] and water are not available, use hand food general manager. Do not touch your eyes, nose, or [...] provider. Document Revised: 08/23/2021 Document Reviewed: 08/23/2021 [employer] Patient Education 2022 [employer]. 06/18/2023 16:34:25 Viral Illness, Adult Viral Illness, [...] Medicines to relieve symptoms. These can include wxod-ulu-wclvhas medicine for pain and fever, medicines for cough or congestion, and medicines to relieve diarrhea. Antiviral medicines. These medicines are available only for certain types of viruses. Some viral illnesses can be prevented with vaccinations. A common example is the flu shot. Follow these instructions at home: Medicines Take yzct-jco-xyczjfs and prescription medicines only as told by [...] and water are not available, use hand food general manager. Avoid touching your nose, eyes, and mouth, [...] provider. Document Revised: 10/10/2020 Document Reviewed: 04/05/2020 [employer] Patient Education 2022 [employer]. [facility] 06-18-2023 Evaluation + Plan note Diagnostic Tests PendingGroup A Strep by PCR 06/18/23 [facility] 01-23-2023 Note Procedure History None. [...] drug abuse. ED physician discussed case with head of partner development Dr. Butler and TAXONOMIST Dr. Mortensen. Telemetry monitoring and echocardiogram was [...] this is written under the wrong FIN [facility] Comment on above: Result Comment: Elec [...] drug abuse. ED physician discussed case with head of partner development Dr. Butler and TAXONOMIST Dr. Mortensen. Telemetry monitoring and echocardiogram was [...] 78.2 % Lymph Auto - 12.3 % Mercer Auto - 8.5 % Eos Auto - 0.6 % Basophil Auto - 0.4 % Neutro Absolute - 12.7 E9/L Lymph Absolute - 2.0 E9/L Mercer Absolute - 1.4 E9/L Eos Absolute - [...] NEGATIVE1 UA Nitri (more content not included)... [facility] Comment on above: Result Comment: Elec [...] feel free to call but currently the infant was in good shape without evidence of any stress or problems with this particular episode. Thank you for allowing me to participate in this patient's care. Jono Mortensen M.D. lr Dictated: 10/19/2022 [id number] Transcribed: 10/19/2022 cc:Magda Limon D.O. [facility] Comment on above: Result Comment: Elec tronically Signed By: Festus MOSS, Jono Layne\.br\Date and Time Signed: 10/20/22 02:24 EDT 10-19-2022 Note Order received, corinne t reviewed. Attempted PT evaluation at 1424 on 10/19/22. Pt. is out of room and has been discharged from acute medical facility prior to completion of PT evaluation. No PT charges. [facility] 10-19-2022 Note Echocardiology Procedure Exam Date/Time Accession # Ordering Echo Transthoracic 10/19/2022 12:02 EDT [id number] Favian Ahumada DO Complete CPT code 58525 [id number] Reason for Exam (Echo Transthoracic Complete) Syncope Report [facility] [address] [place] [address] Adult Echocardiogram Report Name: SIDNEY CANDELARIO Study Date: 10/19/2022 11:33 AM BP: 93/61 mmHg Patient Location: [address] [place] [address] HR: 95 : 2000 Gender: Female Height: 60 in Age: 22 yrs Ethnicity: WHT Weight: 110 lb Reason For Study: Syncope BSA: 1.4 m2 History: No cardiac history per patient Ordering Physician: Diego^Ale Performed By: Ro Guerrero RDCS Interpretation Summary [...] Butler MD Transcribed by: MAYRA Technologist: ÁLVARO [facility] 10-19-2022 Evaluation + Plan note Extrac [...] of plasma proteins) Extracted from: Title:ED Note Author:Favina Ahumada DO Date: 1. Near syncope (R55: [...] made to ensure accuracy, however, inadvertently computerized call person mistakes may be present. Dr. Jona Bowser [facility] Hospitalist Ordered: acetaminophen, 650 mg = 2 [...] Weight Diagnostic Tests Pending * Cortisol 10/19/22 [facility]05-12-2023 NoteChief Complaint Dizziness Reason for [...] not improve, she sought medical attention at [facility] which showed [...] check Historical No q (more content not included)...[facility] Result Comment: Electronically Signed By: Isreal MOSS, Sahil Swartz.rafael\Date and Time Signed: 10/19/22 10:01 [id number] Hospital Discharge instructions Patient Education 10/19/2022 09:40:44 [...] Treatment for this condition includes: Antibiotic medicine. Jwrf-ebx-ykaqect medicines to treat discomfort. Drinking enough water [...] Follow these instructions at home: Medicines Take gorz-ryl-iqrkmlq and prescription medicines only as told by [...] provider. Document Revised: 01/06/2021 Document Reviewed: 01/06/2021 [employer] Patient Education 2022 [employer]. 10/19/2022 09:40:42 Near-Syncope, Xmzo-md-Rdgy Near-Syncope Near-syncope is when you suddenly feel [...] Follow these instructions at home: Medicines Take dsul-rci-zpovmkg and prescription medicines only as told by [...] provider. Document Revised: 10/05/2021 Document Reviewed: 10/05/2021 [employer] Patient Education 2022 [employer]. Follow Up Care 10/18/2022 13:28:40 With:Isreal MOSS, Sahil Fuller Address: [address] [place] [address]- [phone] When:2 weeks With:Roslyn Valdes MD, [facility] Address: [phone] When:2 to 4 days [facility]05-11-2023 NoteChief Complaint pt reports being [...] drug abuse. ED physician discussed case with head of partner development Dr. Butler and TAXONOMIST Dr. Mortensen. Telemetry monitoring and echocardiogram was [...] Lymph Auto: 11.2 % Low (10/18/22 14:39:00) Mercer Auto: 8.3 % (10/18/22 14:39:00) Eos Auto: 0.5 % (10/18/22 14:39:00) Basophil Auto: 0.6 % (10/18/22 14:39:00) Neutro Absolute: 12.5 E9/L High (10/18/22 14:39:00) Lymph Absolute: 1.8 E9/L (10/18/22 14:39:00) Mercer Absolute: 1.3 E9/L High (10/18/22 14:39:00) Eos [...] assessed the patient i (more content not included)...[facility]:Result Comment: Electronically Signed By: Cristin MOSS, Jona Rievra\.rafael\Date and Time Signed: 10/18/22 19:03 EDTHospital course Narrative No data available for this section [facility] No data available for this section [facility] No data available for this section [facility] Summary Purpose Family History No Family History Records FoundNo Family History Records Found No data available for this section No data available for this section No Family History Records Found Advance Directives No Advanced Directives Records FoundNo Advanced Directives Records FoundNo Advanced Directives Records Found Additional Source Comments INFORMATION SOURCE (unrecogn ized section and content) DATE CREATED AUTHOR 10/13/2022 [facility] DATE CREATED AUTHOR AUTHOR'S ORGANIZ ATION 01/24/2023 [facility] DATE CREATED AUTHOR AUTHOR'S ORGANIZ ATION 03/22/2024 [facility] EPIC Patient Care team informatio n (unrecognized section and content) Personnel Name: Roslyn Valdes MD Address: Address: [address] [place] [address] Personnel Name: Roslyn Valdes MD Address: Address: [address] [place] [address] Personnel Name: Roslyn Valdes MD Address: Address: [address] [place] [address] FOR RECORDS PERTAINING TO PATIENTS WHO ARE [...] BE BASED ON THE PRIMARY CLINICAL RECORDS. [facility]. provides no warranty or guarantee of the accuracy or completeness of information in this document.
[2024-03-24 15:06] VITALS: BP 114/59; PULSE 88
== END 2024-03-24 15:30 | disposition home or self-care (01) ==
LOC: US 07:04 → FBC 14:39
PROVIDERS: Visit Provider Obstetrics & Gynecology
DX: O36.5930 Maternal care for other known or suspected poor fetal growth, third trimester, not applicable or unspecified (principal); Z3A.37 37 weeks gestation of pregnancy
CPT/HCPCS: 76818

== ENCOUNTER 2024-03-26 13:21 | Observation (INO) | payer BC, SELFPAY ==
--- OUTSIDE RECORDS SUMMARY | 2024-03-26 13:29 | XMS_ITS | CCD ---
Author Organization [facility] Care Team Providers Care Distributor Operator Name Role Phone DELORES ., DR MAN Admitting Unavailable DELORES ., DR MAN Attending Unavailable DELORES ., DR MAN Consulting Unavailable DELORES ., DR MAN Admitting Unavailable DELORES ., DR MAN Attending Unavailable DELORES ., DR MAN Consulting Unavailable DARCI ., LUANA Admitting Unavailable DARCI ., LUANA Attending Unavailable DARCI ., LUANA Consulting Unavailable DARCI ., LUANA Admitting Unavailable DARCI ., LUANA Attending Unavailable ZIEBER, DR CAMELIA Isabel Consulting Unavailable DARCI ., LUANA Consulting Unavailable DELORES ., DR MAN Admitting Unavailable DELORES ., DR MAN Attending Unavailable DELORES ., DR MAN Consulting Unavailable ZIEBER, DR CAMELIA Isabel Consulting Unavailable Keisha, Roslyn Primary Care Physician Sahil BUTLER Consulting Unavailable Jona Amaral S Admitting Unavailable Jona Amaral Attending Unavailable Sahil BUTLER Consulting Unavailable Sahil BUTLER Consulting Unavailable Roslyn Valdes Admitting Unavailable Esperanza SONG Attending Unavailable Unavailable Primary Care Provider UnavailIRVING Justice Attending Unavailable DARCI LUANA Attending Unavailable DELORESIRVING Attending Unavailable DELORES, IRVING Attending Unavailable DARCI, LUANA Attending Unavailable DELORES, IRVING Attending Unavailable DARCI, LUANA Attending Unavailable DELORES, IRVING Attending Unavailable DARCI, LUANA Attending Unavailable DELORESIRVING Attending Unavailable Medications Current Medications Medication Drug Class(es) Dates Sig (Normalized) Sig (Original) cephalexin 500 mg oral capsule (1 source) Cephalosporin Antibacterial Start: 10-19-2022 End: 10-23-2022 take 1 capsule by mouth every six hours Keflex 500 mg Cap 500 mg = 1 cap(s), Oral, q6hr, X 4 day(s), # 16 cap(s), Refills(s) 0, Pharmacy: [facility], 152, cm, 10/18/22 13:33:00 EDT, Height/Length Dosing, 48, kg, 10/18/22 13:33:00 EDT, Weight Dosing Start Date: 10/19/22 Stop Date: 10/23/22 Status: Ordered Problems Active Problems Problem Classification Problem Date Documented Date Episodic/Chronic Fluid and electrolyte disorders (1 source) Hypokalemia; Translations: [Hypokalemia] Onset: 10-18-2022 Episodic Immunizations and screening for infectious disease (1 source) Contact with and (suspected) exposure to infections with a predominantly sexual mode of transmission; Translations: [CONTCT W EXPOS INFECT SEXUAL TRNSMS] Onset: 08-31-2022 Episodic Menstrual disorders (8 sources) Irregular menstruation, unspecified; Translations: [Missed period] Onset: 07-23-2022 Chronic Other female genital disorders (4 sources) Other specified noninflammatory disorders of vagina; Translations: [OTH SPEC NONINFLAMMATORY D/O VAGINA] Onset: 08-23-2022 Episodic Other hematologic conditions (1 source) Abnormal finding on evaluation procedure; Translations: [Other specified abnormalities of plasma proteins] Onset: 10-18-2022 Episodic Other and delivery including normal (15 sources) Encounter for supervision of normal , [...] WEEKS GESTATION OF ] Onset: 10-11-2022 Episodic Residual codes; unclassified (2 sources) Gestation period, 36 weeks; Translations: [36 weeks gestation of ] 03-19-2024 Episodic Syncope (1 source) Syncope and collapse; Translations: [Syncope and collapse] Onset: 10-18-2022 Episodic Unclassified (3 sources) Decreased body mass index 05-26-2020 Unclassified (3 sources) Patient encounter status 05-25-2020 Unclassified (4 sources) OB Reminders Onset: 12-24-2022 12-24-2022 Urinary tract infections (1 source) Urinary tract infectious disease; Translations: [Urinary tract infection, site not specified] Onset: 10-18-2022 Episodic Viral infection (1 source) Viral disease; Translations: [Viral infection, unspecified] Onset: 06-18-2023 Episodic Past or Other Problems Problem Classification Problem Date Documented Da te Episodic/Chronic Nausea and vomiting (4 sources) Nausea; Translations: [Nausea] Onset: 11-27-2022 11-27-2022 Episodic Results Test Name Value Interpretation Reference Range Facility Urinalysis macro (dipstick) panel (U)on 03-19-2024 Bilirubin, UA Negative Negative - 4(70) +++ mg/dL [facility] Blood, UA Negative Negative - 50 Jb/mcL [facility] Clarity, UA Cloudy [facility] Color, UA Yellow [facility] Glucose, UA Negative Negative - 2000(110) ++++ mg/dL [facility] Interpretation and review of laboratory results Abnormal [facility] Ketones, UA Negative Negative - 160(16) ++++ mg/dL [facility] Leukocytes, UA Positive Negative - 500+++ Josh/mcL [facility] Comment on above: small Nitrite, UA Negative Negative - Positive [facility] pH, UA 7.0 5 - 9 [facility] Protein, UA Negative Negative - 2000(20) ++++ mg/dL [facility] Spec Grav, UA 1.020 1 - 1.03 [facility] Urobilinogen, UA 0.2 0.2 - 12 mg/dL [facility] Nursing Assessmenton 023 Nursing Assessment [id number] #1.00CD:[address] [facility] Discharge Instructionson Discharge Instructions [id number] #1.00CD:[address] [facility] C Urineon 10-20-2022 Bacteria identified Cx [...] This test was performed at: [facility], [address] [place] [address], [address]- , , Normal [facility] Comment on above: Performed By: #### 2 [id number], [id number], [id number] ####[facility] [address] [place] [address] Cortisolon 10-20-2022 Cortisol [Mass/Vol] 18.4 microgram/dL Invalid Interpretation Code 6.2-19.[address] [facility] Comment on above: Result Comment: Yudith jeter Note: The reference interval and flagging for this test is for an AM collection. If this is a PM collection please use: Cortisol PM: 2.3-11.9 Performed at: [facility] [address] [id number] PhD Buck Montes Performed By: #### 2 [id number] #### [facility] [address] [place] [address] Auto Diffon 10-19-2022 Basophils/100 WBC (Bld) 0.4 % Normal 0.0-2.0 [facility] Comment on above: Order Comment: Order Added by Discern Expert. Performed By: #### 2 [id number] #### [facility] [address] [place] [address] Basophils/Leukocytes Auto (Bld) [Pure # fraction] 0.1 E9/L Normal 0.0-0.[address] [facility] Comment on above: Order Comment: Order Added by Discern Expert. Performed By: #### 2 [id number] #### [facility] [address] [place] [address] Eosinophils/100 WBC (Bld) 0.6 % Normal 0.0-8.[address] [facility] Comment on above: Order Comment: Order Added by Discern Expert. Performed By: #### 2 [id number] #### [facility] [address] [place] [address] Eosinophils/Leukocytes Auto (Bld) [Pure # fraction] 0.1 E9/L Normal 0.0-0.[address] [facility] Comment on above: Order Comment: Order Added by Discern Expert. Performed By: #### 2 678240 #### [facility] [address] [place] [address] Lymphocytes/100 WBC (Bld) 12.3 % Low 14.0-50.[address] [facility] Comment on above: Order Comment: Order Added by Discern Expert. Performed By: #### 2 813486 #### [facility] [address] [place] [address] Lymphocytes/Leukocytes Auto (Bld) [Pure # fraction] 2.0 E9/L Normal 1.0-4.[address] [facility] Comment on above: Order Comment: Order Added by Discern Expert. Performed By: #### 2 722719 #### [facility] [address] [place] [address] Monocytes/100 WBC (Bld) 8.5 % Normal 4.0-14.0 [facility] Comment on above: Order Comment: Order Added by Discern Expert. Performed By: #### 2 735001 #### [facility] [address] [place] [address] Monocytes/Leukocytes Auto (Bld) [Pure # fraction] 1.4 E9/L High 0.2-1.[address] [facility] Comment on above: Order Comment: Order Added by Discern Expert. Performed By: #### 2 819106 #### [facility] [address] [place] [address] Neutrophils/100 WBC (Bld) 78.2 % High 36.0-75.[address] [facility] Comment on above: Order Comment: Order Added by Discern Expert. Performed By: #### 2 894165 #### [facility] [address] [place] [address] Neutrophils/Leukocytes Auto (Bld) [Pure # fraction] 12.7 E9/L High 2.0-7.[address] [facility] Comment on above: Order Comment: Order Added by Discern Expert. Performed By: #### 2 [id number] #### [facility] [address] [place] [address] BMPon 10-19-2022 Anion gap [Moles/Vol] 10 mmol/L Normal 6-16 [facility] Comment on above: Performed By: #### 2 101062 #### [facility] [address] [place] [address] Calcium [Mass/Vol] 8.0 mg/dL Low 8.9-11.[address] [facility] Comment on above: Performed By: #### 2 610381 #### [facility] [address] [place] [address] Chloride [Moles/Vol] 106 mmol/L Normal 101-111 [facility] Comment on above: Performed By: #### 2 185398 #### [facility] [address] [place] [address] CO2 [Moles/Vol] 23 mmol/L Normal 21-31 [facility] Comment on above: Performed By: #### 2 859189 #### [facility] [address] [place] [address] Creatinine [Mass/Vol] 0.5 mg/dL Normal 0.5-1.3 [facility] Comment on above: Performed By: #### 2 885141 #### [facility] [address] [place] [address] Glucose [Mass/Vol] 82 mg/dL Normal 55-[address] [facility] Comment on above: Result Comment: If t his glucose result represents a fasting glucose, interpretation should refer to the following reference range: 55-99 mg/dL Performed By: #### 2 393416 #### [facility] [address] [place] [address] Potassium [Moles/Vol] 3.6 mmol/L Normal 3.5-5.3 [facility] Comment on above: Performed By: #### 2 495677 #### [facility] [address] [place] [address] Sodium [Moles/Vol] 135 mmol/L Normal 135-[address] [facility] Comment on above: Performed By: #### 2 302374 #### [facility] [address] [place] [address] Urea nitrogen [Mass/Vol] 5 mg/dL Normal 5-[address] [facility] Comment on above: Performed By: #### 2 324223 #### [facility] [address] [place] [address] Urea nitrogen/Creatinine [Mass ratio] 10 No Units Normal 10-[address] [facility] Comment on above: Performed By: #### 2 662535 #### [facility] [address] [place] [address] CBC w/ Auto Diffon 3 Erythrocyte distribution width (RBC) [Ratio] 13.6 % Normal 10.9-14.[address] [facility] Comment on above: Performed By: #### 2 685951 #### [facility] [address] [place] [address] Hematocrit (Bld) [Volume fraction] 34.1 % Normal 34.0-46.[address] [facility] Comment on above: Performed By: #### 2 917970 #### [facility] [address] [place] [address] Hemoglobin (Bld) [Mass/Vol] 11.3 g/dL Low 12.0-16.[address] [facility] Comment on above: Performed By: #### 2 446717 #### [facility] [address] [place] [address] MCH (RBC) [Entitic mass] 30.3 pg Normal 27.0-34.[address] [facility] Comment on above: Performed By: #### 2 966788 #### [facility] [address] [place] [address] MCHC (RBC) [Mass/Vol] 33.2 g/dL Normal 31.4-36.0 [facility] Comment on above: Performed By: #### 2 366484 #### [facility] [address] [place] [address] MCV (RBC) [Entitic vol] 91.3 fL Normal 80.0-100.0 [facility] Comment on above: Performed By: #### 2 672873 #### [facility] [address] [place] [address] Platelet mean volume (Bld) [Entitic vol] 8.9 fL Normal 6.4-10.[address] [facility] Comment on above: Performed By: #### 2 853279 #### [facility] [address] [place] [address] Platelets (Bld) [#/Vol] 146.0 E9/L Low 150.0-500.[address] [facility] Comment on above: Performed By: #### 2 281208 #### [facility] [address] [place] [address] RBC (Bld) [#/Vol] 3.7 E12/L Low 4.3-5.[address] [facility] Comment on above: Performed By: #### 2 520228 #### [facility] [address] [place] [address] WBC corrected for nucl RBC Auto (Bld) [#/Vol] 16.3 E9/L High 4.0-11.0 [facility] Comment on above: Performed By: #### 2 184396 #### [facility] [address] [place] [address] CHEMISTRYOrdered By: SYSTEM SYSTEM on 10-19-2022 Anion [...] 138 mL/min/1.73 m2 Normal >=59mL/min/1 .73 m2 [facility] Chem S Glucose [Mass/Vol] 82 mg/dL Normal [...] Pending Diagnostic Test Results None [facility] after Discharge Follow Up with Isreal MOSS, Sahil Fuller When: Within 2 weeks Where: [address] [place] [phone] Follow Up with Roslyn Valdes MD, [facility] When: Within 2 to 4 days Where: [phone] Medications What How Much When Instructions Next Dose New cephalexin (Keflex 500 mg Cap) 1 Capsules By Mouth Every 6 hours Duration: 4 Days Pickup at [facility] Pharmacy Information [facility]: [address] [place], [place] [id number] [phone] What How Much When Comments Stop Taking [...] include: (more content not included)... Normal [facility] ED Clinical Summaryon 2022 ED Clinical Summary [place] [id number] ED Clinical Summary Person Information Name: SIDNEY CANDELARIO [facility] Age: 22 Years : 2000 Sex: Female [...] 10/18/2022 22:10:25 10/18/2022 22:10:25 10/18/2022 22:10:25 ADDRESS: [address] [place] [phone] PHYS DOC NOTES: MEDICAL INFORMATION: Prescriptions Given: Medications to Continue with No Changes Other Medications ibuprofen (ibuprofen 400 mg Tab) 1 Tablets By Mouth every 6 hours as needed for pain. Refills: 0. PATIENT EDUCATION INFORMATION: Instructions: Follow up: DIAGNOSIS: 1:Near syncope; 2:UTI (urinary tract infection); 3:Hypokalemia; Elevated troponin Normal [facility] ED Patient Education Noteon 10-19-2022 ED Patient Education Note Normal [facility] ED Patient Summaryon 023 ED Patient Summary [place] [id number] Patient Discharge Instructions Person Information Name: SIDNEY CANDELARIO Age: 22 Years Arrival Date: 10/18/2022 13:27:27 Discharge Diagnosis: 1:Near syncope; 2:UTI (urinary tract infection); 3:Hypokalemia; Elevated troponin Primary Care Physician: Roslyn Valdes MD Provider Information Primary Provider: Favian Ahumada DO Advanced Casing Machine Operator:None The exam and treatment you received in the Emergency Department were for an urgent problem and are not intended as complete care. It is important that you follow up with a doctor, nurse practitioner, or physician?s radiology practitioner assistant for ongoing care. If your symptoms [...] opioids can be used to help relieve kdskcjzg-kr-xqwuft pain and are often prescribed following a [...] be struggling with addiction, tell your health day care aide and ask for guidance or call [facility]?S National Helpline at 7-108-688-DEPB. k Source: [place] Department of Health and Human Services/Center for Disease Control & Prevention [facility] (more content not included)... Normal [facility] HEMATOLOGYOrdered By: SYSTEM SYSTEM on 10-19-2022 [...] 33.2 g/dL Normal 31.4 - 36.0 gm/dL FT HemeAutoSS MCV (RBC) [Entitic vol] 91.3 fL Normal 80.0 - 100.0 fL FT HemeAutoSS Platelet mean volume (Bld) [Entitic vol] 8.9 fL Normal 6.4 - 10.8 fL FT HemeAutoSS Platelets (Bld) [#/Vol] 146.0 E9/L Low 150. 0 - 500.0 E9/L FT HemeAutoSS RBC (Bld) [#/Vol] 3.7 E12/L Low 4.3 - 5.9 E12/L FT HemeAutoSS WBC corrected for nucl RBC Auto (Bld) [#/Vol] 16.3 E9/L High 4.0 - 11.0 E9/L FT HemeAutoSS Inpatient Clinical Summaryon 10-19-2022 Inpatient Clinical Summary [place] [id number] Clinical Summary Person Information: Name: SIDNEY CANDELARIO Age: 22 Years : 2000 Sex: Female PCP: Roslyn Valdes MD Marital Status: Race: White Ethnicity: Non- or Language: Georgian Visit Id: Visit Reason: Dizziness; UTI, NEAR SYNCOPE, HYPOKALEMIA Speciality: Acuity: Enc Type: Observation Med Service: Medical Arrival: 10/18/2022 13:27:27 Discharge: Dispo Type: Address: [address] [place] [phone] Provider Notes: Diagnosis: 1:Near syncope; 2:UTI (urinary [...] Refills: 0. Care Team Members: Attending Physician: Cristin MOSS, Jona Rivera Consulting Physician: Isreal MOSS, Sahil Fuller Referring Physician: Follow up: With: Address: When: Roslyn Valdes MD, [facility] [phone] Within 2 to 4 days Patient Education Information: Normal [facility] Inpatient Patient Summaryon 10-19-2022 Inpatient Patient Summary [place] [id number] Patient Discharge Instructions PERSON INFORMATION Name: SIDNEY CANDELARIO Date of : 2000 Current Date: 10/19/2022 09:40:25 PHYSICIANS Admitting Physician: Cristin MOSS, Jona Rivera Primary Care Physician: Roslyn Valdes MD PCP Phone Number: [phone] Comment: Discharge Diagnosis: 1:Near syncope; 2:UTI (urinary [...] up: With: Address: When: Roslyn Valdes MD, [facility] [phone] Within 2 to 4 days In the [...] needed for pain. Refills: 0. Pharmacy Information: [facility] Comment: PATIENT EDUCATION INFORMATION Instructions: Medication Leaflets: You may receive a survey from [employer] asking you to rate your care experience. Your feedback is important and will help us understand what we do well and how we can improve the quality of care we provide to you, your loved ones and our community. It?s an honor to serve you. Thank you for choosing [facility] Normal [facility] Interdisciplinary Note - Christ e Manageron 10-19-2022 Interdisciplinary Note - Pick Pulling Machine Operator Pt is awake and alert in bed, previously rounded with Dr. Amaral. Spouse at bedside, Pt is aware of plan for scan today and plan to DC home later today. Declines any concerns or DC needs. Observation status reviewed. PCP verified and insurance information reviewed and DME discussed. Contact information provided and white board updated. Normal [facility] Comment on above: Result Comment: Elec tronically Signed By: Heraclio GRAFF, Sayda\.rafael\Date and Time Signed: 10/19/22 11:06 EDT Magnesiumon 10-19-2022 Magnesium [Mass/Vol] 1.7 mg/dL Normal 1.3-2.4 [facility] Comment on above: Performed By: #### 2 [id number] #### [facility] [address] [place] [address] Monitor Recordon 10-19-2022 Monitor Record [id number]#1.00CD:[address] [facility] Monitor Record [id number]#1.00CD:[address] [facility] Monitor Record [id number]#1.00CD:[address] [facility] Monitor Record [id number]#1.00CD:[address] [facility] Patient Education - Texton 0 10-19-2022 [...] these instructions at home: Medicines ? Take pifg-nue-frbakkr and prescription medicines only as told by [...] provider. Document Revised: 10/05/2021 Document Reviewed: 10/05/2021 [employer] Patient Education ? 2022 [email or web address]. Obstetrics and Gynecology Urinary Tract Infection, Adult [...] bladder). (more content not included)... Normal [facility] Phosphoruson 10-19-2022 Phosphate [Mass/Vol] 3.8 mg/dL Normal 1.9-4.6 [facility] Comment on above: Performed By: #### 2 [id number] #### [facility] [address] [place] [address] Progress Note-Physicianon Progress Note-Physician Basic Informatio n [...] drug abuse. ED physician discussed case with educational therapy teacher Dr. Butler and PLATING INSPECTOR Dr. Mortensen. Telemetry monitoring and echocardiogram was [...] made to ensure accuracy, however, inadvertently computerized financial supervisor mistakes may be present. Dr. Jona Amaral [...] Lymph Auto: 12.3 % Low (10/19/22 05:47:00) [place] Auto: 8.5 % (10/19/22 05:47:00) Eos Auto: 0.6 % (10/19/22 05:47:00) Basophil Auto: 0.4 % (10/19/22 05:47:00) Neutro Absolute: 12.7 E9/L High (10/19/22 05:47:00) Lymph Absolute: 2 E9/L (10/19/22 05:47:00) [place] Absolute: 1.4 E9/L High (10/19/22 05:47:00) Eos [...] Magnesium (more content not included)... Normal [facility] Comment on above: Result Comment: Elec tronically Signed By: Cristin MOSS, Jona Rivera\.br\Date and Time Signed: 10/19/22 12:08 EDT Troponin 9 Hr.on 10-19-2022 Troponin I.cardiac [Mass/Vol] 48.10 pg/mL Abnormal 10.10-27.[address] [facility] Comment on above: Order Comment: pt is not discharged despite the discharge status. pt is in room 302; third shift phleb was notified not to cancel pending orders. [id number] 10/18/2022 22:15:32 EDT Result Comment: Crit ical [...] High Sensitivity Troponin I Instructions For Use, [employer], January 2018) Performed By: #### 1 [id number] #### [facility] [address] [place] [address] eGFRon 10-19-2022 GFR/1.73 sq M.predicted among non-blacks MDRD (S/P/Bld) [Vol rate/Area] 138 mL/min/1.73 m2 Normal >=[address] [facility] Comment on above: Order Comment: Order added by Discern Expert. Result Comment: Strategic Account Manager sydnie kidney disease could be indicated at eGFR's of less than 60 mL/min/1.73m2. Kidney failure is indicated at less than 15 mL/min/1.73m2. Performed By: #### 2 [id number] #### [facility] [address] [place] [address] Acetamnphn Lvlon 10-18-2022 Acetaminophen [Mass/Vol] ug/mL Low 15-[address] [facility] Comment on above: Performed By: #### 1 [id number], 8893200, 2493951, 35986273, 5990784, 16483835, 74745726, 4702617, 1199929 ####[facility] [address] [place] [address] Auto Diffon 10-18-2022 Basophils/100 WBC (Bld) 0.6 % Normal 0.0-2.0 [facility] Comment on above: Order Comment: Order Added by Discern Expert. Performed By: #### 1 [id number], 4991096, 6889601, 30865550, 3911075, 75974850, 26680140, 3321384, 1659840 ####[place] [address] [place] [address] Basophils/Leukocytes Auto (Bld) [Pure # fraction] 0.1 E9/L Normal 0.0-0.[address] [facility] Comment on above: Order Comment: Order Added by Discern Expert. Performed By: #### 1 [id number], 7444607, 2738517, 53493339, 1498344, 24996977, 68729238, 0114359, 9950203 ####[place] [address] [place] [address] Eosinophils/100 WBC (Bld) 0.5 % Normal 0.0-8.[address] [facility] Comment on above: Order Comment: Order Added by Discern Expert. Performed By: #### 1 [id number], 8973805, 9018261, 36945195, 5552846, 55882736, 10013668, 5854587, 3539033 ####[place] [address] [place] [address] Eosinophils/Leukocytes Auto (Bld) [Pure # fraction] 0.1 E9/L Normal 0.0-0.[address] [facility] Comment on above: Order Comment: Order Added by Discern Expert. Performed By: #### 1 [id number], 7098721, 9553452, 63388379, 7396632, 22814819, 85069895, 3211911, 5712098 ####[place] [address] [place] [address] Lymphocytes/100 WBC (Bld) 11.2 % Low 14.0-50.[address] [facility] Comment on above: Order Comment: Order Added by Discern Expert. Performed By: #### 1 1839799, 1458183, 1242767, 78975666, 5933053, 90911635, 91653294, 7068589, [id number] ####[facility] [address] [place] [address] Lymphocytes/Leukocytes Auto (Bld) [Pure # fraction] 1.8 E9/L Normal 1.0-4.[address] [facility] Comment on above: Order Comment: Order Added by Discern Expert. Performed By: #### 1 8188122, 2479478, 0483900, 82367741, 4586668, 47251777, 25860314, 4727489, 4026037 ####[address] [place] [address] Monocytes/100 WBC (Bld) 8.3 % Normal 4.0-14.0 [facility] Comment on above: Order Comment: Order Added by Linda Expert. Performed By: #### 1 2431699, 6020664, 0601469, 08215201, 9659385, 73842371, 39391266, 2758393, 3976301 ####[address] [place] [address] Monocytes/Leukocytes Auto (Bld) [Pure # fraction] 1.3 E9/L High 0.2-1.[address] [facility] Comment on above: Order Comment: Order Added by Linda Expert. Performed By: #### 1 9162180, 7313176, 6322098, 09949854, 0122324, 89475224, 75196719, 4223857, 1768808 ####[facility] [address] [place] [address] Neutrophils/100 WBC (Bld) 79.4 % High 36.0-75.[address] [facility] Comment on above: Order Comment: Order Added by Linda Expert. Performed By: #### 1 5662473, 7515613, 6787462, 98077906, 9328553, 95321881, 53716280, 0722323, 4688269 ####[facility] [address] [place] [address] Neutrophils/Leukocytes Auto (Bld) [Pure # fraction] 12.5 E9/L High 2.0-7.[address] [facility] Comment on above: Order Comment: Order Added by Discern Expert. Performed By: #### 1 6779318, 3168405, 2006270, 27162607, 5567768, 94043068, 95521672, 9043729, 1306175 ####[facility] [address] [place] [address] BMPon 10-18-2022 Creatinine [Mass/Vol] 0.5 mg/dL Normal 0.5-1.3 [facility] Comment on above: Performed By: #### 1 5823246, 2575536, 1533371, 81794295, 8343385, 37161958, 29130785, 7275670, 8412992 #### [facility] [address] [place] [address] Urea nitrogen [Mass/Vol] 7 mg/dL Normal 5-[address] [facility] Comment on above: Performed By: #### 1 9025589, 4630371, 1816273, 50543279, 3009598, 47630717, 92446093, 7225129, 3202857 #### [facility] [address] [place] [address] Urea nitrogen/Creatinine [Mass ratio] 14 No Units Normal 10-[address] [facility] Comment on above: Performed By: #### 1 6357889, 7822204, 9352646, 73765752, 4067101, 88572288, 68533601, 9091371, 8901088 #### [facility] [address] [place] [address] Anion gap [Moles/Vol] 11 mmol/L Normal 6-16 [facility] Comment on above: Performed By: #### 1 3919919, 1261861, 0935277, 41690036, 1678296, 33440384, 42043741, 8430045, 5790930 #### [facility] [address] [place] [address] Calcium [Mass/Vol] 8.7 mg/dL Low 8.9-11.[address] [facility] Comment on above: Performed By: #### 1 2411640, 6437540, 9222411, 34667063, 9535980, 62728540, 23095458, 6009068, 9483289 #### [facility] [address] [place] [address] Chloride [Moles/Vol] 102 mmol/L Normal 101-111 [facility] Comment on above: Performed By: #### 1 6159334, 2695104, 7697709, 22702872, 9969866, 25708155, 08057217, 3021258, 0638992 #### [facility] [address] [place] [address] CO2 [Moles/Vol] 26 mmol/L Normal 21-31 [facility] Comment on above: Performed By: #### 1 1322737, 7908790, 8804832, 08199507, 2274690, 78026107, 55638981, 1595409, 2183073 #### [facility] [address] [place] [address] Glucose [Mass/Vol] 97 mg/dL Normal 55-[address] [facility] Comment on above: Result Comment: If t his glucose result represents a fasting glucose, interpretation should refer to the following reference range: 55-99 mg/dL Performed By: #### 1 5354783, 1164511, 9990960, 69529616, 1733614, 92708353, 44618335, 0265287, 2079265 #### [facility] [address] [place] [address] Potassium [Moles/Vol] 3.3 mmol/L Low 3.5-5.3 [facility] Comment on above: Performed By: #### 1 8339647, 3393242, 7590630, 80680273, 3345316, 92327144, 96375168, 7596559, 8743960 #### [facility] [address] [place] [address] Sodium [Moles/Vol] 136 mmol/L Normal 135-[address] [facility] Comment on above: Performed By: #### 1 3184339, 9021589, 9609434, 01152080, 6615420, 56625759, 63168854, 3110925, 9722072 #### [facility] [address] [place] [address] CBC w/ Auto Diffon 3 Erythrocyte distribution width (RBC) [Ratio] 13.8 % Normal 10.9-14.[address] [facility] Comment on above: Performed By: #### 1 4247600, 9246724, 9870549, 11826139, 1490763, 76930279, 68725252, 8316311, 2471810 #### [facility] [address] [place] [address] Hematocrit (Bld) [Volume fraction] 37.4 % Normal 34.0-46.[address] [facility] Comment on above: Performed By: #### 1 0995911, 1496777, 2058086, 34743319, 0731985, 21004571, 55680703, 5771332, 4781353 #### [facility] [address] [place] [address] Hemoglobin (Bld) [Mass/Vol] 12.5 g/dL Normal 12.0-16.[address] [facility] Comment on above: Performed By: #### 1 9873037, 9811162, 4941228, 16157781, 4392978, 85580246, 45506395, 8130478, 1947276 #### [facility] [address] [place] [address] MCH (RBC) [Entitic mass] 30.1 pg Normal 27.0-34.[address] [facility] Comment on above: Performed By: #### 1 3818243, 9838539, 6509664, 79578034, 7286370, 90909442, 86872350, 1910134, 6873161 #### [facility] [address] [place] [address] MCHC (RBC) [Mass/Vol] 33.6 g/dL Normal 31.4-36.0 [facility] Comment on above: Performed By: #### 1 2206092, 9910698, 2497774, 46774547, 6823531, 99591113, 96882733, 4777408, 3481367 #### [facility] [address] [place] [address] MCV (RBC) [Entitic vol] 89.7 fL Normal 80.0-100.0 [facility] Comment on above: Performed By: #### 1 1332609, 8919307, 2846584, 83898341, 9024985, 18175170, 28199059, 2612456, 4164189 #### [facility] [address] [place] [address] Platelet mean volume (Bld) [Entitic vol] 9.2 fL Normal 6.4-10.[address] [facility] Comment on above: Performed By: #### 1 9724434, 0942574, 3586745, 24623891, 1089459, 26206929, 86399282, 4788220, 3815907 #### [facility] [address] [place] [address] Platelets (Bld) [#/Vol] 146.0 E9/L Low 150.0-500.[address] [facility] Comment on above: Performed By: #### 1 4717362, 4445193, 6676065, 05504577, 1308418, 90434801, 21863643, 7253844, 9954169 #### [facility] [address] [place] [address] RBC (Bld) [#/Vol] 4.2 E12/L Low 4.3-5.[address] [facility] Comment on above: Performed By: #### 1 6147139, 0761910, 7120554, 24350241, 4897793, 26655775, 10041585, 2359920, 9077343 #### [facility] [address] [place] [address] WBC corrected for nucl RBC Auto (Bld) [#/Vol] 15.8 E9/L High 4.0-11.0 [facility] Comment on above: Result Comment: Slid e reviewed by HUGO 10/18/2022 15:09:43 EDT. Performed By: #### 1 2014973, 2708743, 5643694, 89602007, 0647514, 85661567, 20186244, 3087914, 0508543 #### [facility] [address] [place] [address] CHEMISTRYOrdered By: SYSTEM SYSTEM on 10-18-2022 Ethanol [Mass/Vol] mg/dL Normal <=7mg/dL [facility] R emisol Troponin I.cardiac [Mass/Vol] 53.00 pg/mL [...] previous result\ Critical Result I_hsTnI:49.6 Called to DAVIAD TAYLOR at ER by VALERIA ROGERS and [...] Normal Negative [facility] Remisol COAGULATIONOrdered By: Dorita Case on 10-18-2022 aPTT Coag (PPP) [Time] 25.8 s Normal 25.1 - 36.5 second(s) [facility] Auto Coag INR Coag (PPP) [Relative time] 1.0 {INR} Invalid Interpretation Code [facility] Auto Coag PT Coag (PPP) [Time] 10.8 s Normal 9.4 - 1 2.5 second(s) [facility] Auto Coag Consent for Treatmenton 10-08 Consent for Treatment [id number] #1.00CD:[address] [facility] ED Note-Physicianon 10-19-19 23 ED Note-Physician Basic Information Time Seen: Favian [...] patient assessment and treatment. Medical Decision Making [facility] Data External documents reviewed: Not applicable My EKG interpretation: As below My CT interpretation: Not applicable My X-ray interpretation: As below My Ultrasound interpretation: Not applicable Decision rules/scores evaluated: Not applicable Discussed with: Dr. Mortensen, PLATING INSPECTOR. Dr. Butler, cardiology. Dr. Calhoun, Hospitalist. Treatment [...] tachycardia. I will call and discuss with PLATING INSPECTOR and cardiology. (more content not included)... Normal [facility] Comment on above: Result Comment: Elec tronically Signed By: Favian Ahumada DO\.br\Date and Time Signed: 10/18/22 19:58 EDT Ethanolon 10-18-2022 Ethanol [Mass/Vol] mg/dL Normal <=[address] [facility] Comment on above: Performed By: #### 2 389567 ####[facility] [address] [place] [address] HEMATOLOGYOrdered By: SYSTEM SYSTEM on 10-18-2022 Basophils/100 [...] 37.4 % Normal 34.0 - 46.0 % [facility] HemeAutoSS Hemoglobin (Bld) [Mass/Vol] 12.5 g/dL Normal 12.0 - 16.0 gm/dL [facility] HemeAutoSS MCH (RBC) [Entitic mass] 30.1 pg Normal 27. 0 - 34.0 pg [facility] HemeAutoSS MCHC (RBC) [Mass/Vol] 33.6 g/dL Normal 31.4 - 36.0 gm/dL [facility] HemeAutoSS MCV (RBC) [Entitic vol] 89.7 fL Normal 80.0 - 100.0 fL [facility] HemeAutoSS Platelet mean volume (Bld) [Entitic vol] 9.2 fL Normal 6.4 - 10.8 fL [facility] HemeAutoSS Platelets (Bld) [#/Vol] 146.0 E9/L Low 150. 0 - 500.0 E9/L [facility] HemeAutoSS RBC (Bld) [#/Vol] 4.2 E12/L Low 4.3 - 5.9 E12/L [facility] HemeAutoSS WBC corrected for nucl RBC Auto (Bld) [#/Vol] 15.8 E9/L High 4.0 - 11.0 E9/L [facility] HemeAutoSS Comment on above: Result Comment: Bhargav e reviewed by HUGO 10/18/2022 15:09:43 EDT. Laboratory - Microbiology an d Antimicrobial susceptibilityOrdered By: Nyla Rajan on 10-18-2022 Bacteria identified Cx Nom (U) 100 cfu/ml Mixed skin contaminants [facility] Monitor Recordon 10-18-2022 Monitor Record [id number]#[id number]:[address] [facility] Monitor Record [id number]#1.00CD:[address] [facility] Monitor Record [id number]#1.00CD:[address] [facility] PT & PTTon 10-18-2022 aPTT Coag (PPP) [Time] 25.8 second(s) Normal 25.1-36.[address] [facility] Comment on above: Result Comment: Para [...] the same coagulation reagent and instrumentation as [facility]. Currently there are no coagulation studies available worldwide for children to 14 days, and no normal ranges. Heparin therapeutic range (represented by Anti-Factor Xa activity of 0.2 - 0.4 U/mL) corresponds to PTT of 56.6 - 109.0 sec. Performed By: #### 1 3832150, 0285690, 4196188, 42449494, 5449693, 03569346, 39171588, 5745109, 3672883 #### [facility] [address] [place] [address] INR Coag (PPP) [Relative time] 1.0 {INR} Invalid Interpretation Code [facility] Comment on above: Result Comment: INR results are specifically intended to assess patients stabilized on long-term Anticoagulation therapy suggested INR?s ?Less Intensive Anticoagulation? 2.0 ? 3.0 Conventional Range 3.0 ? 4.5 Performed By: #### 1 8119438, 2488145, 3007788, 21034153, 2583032, 03587478, 83215506, 8676929, 7918980 #### [facility] [address] [place] [address] PT Coag (PPP) [Time] 10.8 second(s) Normal 9.4-12.[address] [facility] Comment on above: Result Comment: 15 [...] ranges were obtained from a study by pavel Schilling al. prepared from 1437 samples obtained at 7 different centers using the same coagulation reagent and instrumentation as [facility]. Currently there are no coagulation studies available worldwide for children to 14 days, and no normal ranges. Performed By: #### 1 5279234, 6092964, 7127191, 66370683, 7787237, 21284394, 57803049, 1505355, 5919238 #### [facility] [address] [place] [address] Progress Note-Nurseon 2022 Progress Note-Nurse Patient: SIDNEY CANDELARIO Age: 22 years Sex: Female : 2000 Associated Diagnoses: None Author: Mell GRAFF, Meghna 25 week GI P0 in ER. heart tracing times 10 minutes obtained. Baseline 150bpm, moderate variability with accelerations increasing to 160. Audible movement. Pt states she can feel movement. Normal [facility] Salicylateon 10-18-2022 Salicylates [Mass/Vol] mg/dL Low 6-29 [facility] Comment on above: Performed By: #### 1 2636390, 7202916, 0242196, 64966828, 7689883, 66566931, 50036953, 7646220, 8413141 ####[facility] [address] [place] [address] TSH With T4fr Reflexon 10-18 TSH Qn 1.50 m[IU]/L Normal 0.34-5.[address] [facility] Comment on above: Performed By: #### 1 6653720, 9197414, 1087156, 28143182, 6532494, 95987416, 40430288, 0927044, 4919465 ####[facility] [address] [place] [address] Troponinon 10-18-2022 Troponin I.cardiac [Mass/Vol] 47.10 pg/mL Abnormal 10.10-27.[address] [facility] Comment on above: Result Comment: Crit [...] conjunction with clinical conditions of myocardial infarction. ([employer] High Sensitivity Troponin I Instructions For Use, [employer], January 2018) Performed By: #### 2 294635 #### [facility] [address] [place] [address] Troponin 0 Hr.on 10-18-2022 Troponin I.cardiac [Mass/Vol] 42.20 pg/mL Abnormal 10.10-27.[address] [facility] Comment on above: Result Comment: Crit [...] conjunction with clinical conditions of myocardial infarction. ([employer] High Sensitivity Troponin I Instructions For Use, [employer]January 2018) Performed By: #### 1 5040552, 8525833, 6830210, 45514173, 9772256, 36617839, 26312751, 4603185, 5744239 ####[facility] [address] [place] [address] Troponin 3 Hr.on 10-18-2022 Troponin I.cardiac [Mass/Vol] 49.60 pg/mL Abnormal 10.10-27.[address] [facility] Comment on above: Result Comment: Crit ical Result verified by previous result\ Critical Result I_hsTnI:49.6 Called to DAVIDA BRANDON at ER by VALERIA ROGERS and read back for confirmation at 10/18/2022 18:15:45 The 95% CI (Confidence Interval) PPV (Positive Predictive Value) for myocardial infarction in females is 38 pg/mL, in males 51 pg/mL. The results should be used in conjunction with clinical conditions of myocardial infarction. ([employer] High Sensitivity Troponin I Instructions For Use, [employer], January 2018) Performed By: #### 1 2683476 #### [facility] [address] [place] [address] Troponin 6 Hr.on 10-18-2022 Troponin I.cardiac [Mass/Vol] 53.00 pg/mL Abnormal 10.10-27.[address] [facility] Comment on above: Result Comment: Crit ical Result verified by previous result\ Critical Result I_hsTnI:53.0 Called to DAVIDA BRANDON at ER by VALERIA ROGERS and read back for confirmation at 10/18/2022 21:36:32 The 95% CI (Confidence Interval) PPV (Positive Predictive Value) for myocardial infarction in females is 38 pg/mL, in males 51 pg/mL. The results should be used in conjunction with clinical conditions of myocardial infarction. ([employer] High Sensitivity Troponin I Instructions For Use, [employer] 2018) Performed By: #### 1 4998916 #### [facility] [address] [place] [address] U Drug Screenon 10-18-2022 Amphetamines Screen method >1000 ng/mL Ql (U) Negative Normal Negative [facility] Comment on above: Result Comment: Nega tive Cutoff: <1000 ng/mL Performed By: #### 2 526795, 4444641, 07579330 ####[facility] [address] [place] [address] Barbiturates Screen Ql (U) Negative Normal Negative [facility] Comment on above: Result Comment: Nega tive Cutoff: <200 ng/mL Performed By: #### 2 784249, 1940021, 75303254 ####[facility] [address] [place] [address] Benzodiazepines Ql (U) Negative Normal Negative [facility] Comment on above: Result Comment: Nega tive Cutoff: <200 ng/mL Performed By: #### 2 923028, 8888657, 15863629 ####[facility] [address] [place] [address] Cocaine Ql (U) Negative Normal Negative [facility] Comment on above: Result Comment: Nega tive Cutoff: <300 ng/mL Performed By: #### 2 976105, 6777154, 65726449 ####[facility] [address] [place] [address] Opiates Screen Ql (U) Negative Normal Negative [facility] Comment on above: Result Comment: Nega tive Cutoff: <300 ng/mL Performed By: #### 2 201152, 5074306, 26515500 ####[facility] [address] [facility] [place] [address] Phencyclidine Screen method >25 ng/mL Ql (U) Negative Normal Negative [facility] Comment on above: Result Comment: Nega tive Cutoff: <25 ng/mL These drug screen results are to be used for medical (i.e., treatment) purposes only. Unconfirmed drug screening results must not be used for non-medical purposes (e.g., employment testing, legal testing). Performed By: #### 2 286626, 6362036, 44224639 ####[facility] [address] [facility] [place] [address] Tetrahydrocannabinol Screen method >50 ng/mL Ql (U) Negative Normal Negative [facility] Comment on above: Result Comment: Nega tive Cutoff: <50 ng/mL Performed By: #### 2 382322, 8308837, 26193746 ####[facility] [address] [place] [address] UA With Cult Reflexon 2022 Bacteria LM Ql (Urine sed) 2+ /HPF Abnormal Trace [facility] Comment on above: Performed By: #### 2 557518, 4438716, 28337687 ####[facility] [address] [place] [address] Bilirubin Ql (U) Negative Normal Negative [facility] Comment on above: Performed By: #### 2 045325, 0267631, 36014968 ####[facility] [address] [place] [address] Clarity (U) SL CLOUDY Abnormal Clear [facility] Comment on above: Performed By: #### 2 048615, 2055982, 60704626 ####[facility] [address] [place] [address] Color (U) YELLOW Normal Yellow [facility] Comment on above: Performed By: #### 2 389267, 2107844, 38497174 ####[facility] [address] [place] [address] Epithelial cells.squamous LM.HPF (Urine sed) [#/Area] /[HPF] Normal 0-2 [facility] Comment on above: Performed By: #### 2 607362, 2664775, 80764162 ####[facility] [address] [place] [address] Glucose Test strip (U) [Mass/Vol] Negative Normal Negative [facility] Comment on above: Performed By: #### 2 963699, 6939046, 09823788 ####[facility] [address] [place] [address] Hemoglobin Ql (U) Negative Normal Negative [facility] Comment on above: Performed By: #### 2 720502, 4086477, 21018029 ####[facility] [address] [place] [address] Ketones (U) [Mass/Vol] Negative Normal Negative [facility] Comment on above: Performed By: #### 2 945179, 2858165, 73213486 ####[facility] [address] [place] [address] [place].plasma/[place].R BC (Bld) [Mass ratio] 4-20 Normal 0-3 [facility] Comment on above: Performed By: #### 2 756812, 1998853, 86610919 ####[address] [place] [address] Nitrite Ql (U) Negative Normal Negative [facility] Comment on above: Performed By: #### 2 410303, 2973407, 07281027 ####[address] [address] pH (U) 6.5 [pH] Invalid Interpretation Code 5.0-9.[address] [facility] Comment on above: Performed By: #### 2 190166, 5324150, 76949350 ####[facility] [address] [place] [address] Protein (U) [Mass/Vol] Negative Normal Negative [facility] Comment on above: Performed By: #### 2 792603, 2466726, 16881391 ####[address] [address] Specific gravity (U) [Rel density] 1.015 Invalid Interpretation Code 1.005-1.[address] [facility] Comment on above: Performed By: #### 2 592690, 5005610, 54497446 ####[facility] [address] [place] [address] Type of Urine collection method Clean Catch Normal [facility] Comment on above: Performed By: #### 2 905756, 0022107, 64248262 ####[address] [place] [address] Urobilinogen Qn (U) 0.2 {Yg'U}/dL Normal 0.0-1.[address] [facility] Comment on above: Performed By: #### 2 099048, 4587833, 72177315 ####[facility] [address] [place] [address] WBC Auto Ql (U) 1+ Abnormal Negative [facility] Comment on above: Performed By: #### 2 802268, 7171559, 61363141 ####[facility] [address] [place] [address] WBC LM.HPF (Urine sed) [#/Area] 16-25 Abnormal 0-[address] [facility] Comment on above: Performed By: #### 2 388361, 8827138, 64646259 ####[facility] [address] [place] [address] URINALYSISOrdered By: Citlali Rogers on 10-18-2022 Bacteria [...] PM) Normal Negative [facility] UA Auto SS [place].plasma/[place].R BC (Bld) [Mass ratio] 4-20 /HPF Normal 0-3/HPF [facility] UA Au to SS Nitrite Ql (U) Negative (10/18/22 1:37 PM) Normal Negative [facility] UA Auto SS pH (U) 6.5 *NA* (10/18/22 1:37 PM) Invalid Interpretation Code 5.0 - 9.0 [facility] UA Auto SS Protein (U) [Mass/Vol] Negative (10/18/22 1:37 PM) Normal Negative [facility] UA Auto SS Specific gravity (U) [Rel density] 1.015 *NA* (10/18/22 1:37 PM) Invalid Interpretation Code 1.005 - 1.030 [facility] UA Auto SS UA Spec Desc Clean Catch (10/18/22 1:37 PM) Normal [facility] UA Auto SS Urobilinogen Qn (U) 0.6912338 {Yg'U}/dL Normal 0.0 - 1.0 EU/dL [facility] UA Auto SS WBC Auto Ql (U) 1+ *ABN* (10/18/22 1:37 PM) Invalid Interpretation Code Negative [facility] UA Auto SS WBC LM.HPF (Urine sed) [#/Area] 16-25 /HPF Invalid Interpretation Code 0-5/HPF [facility] UA Auto SS XR Chest Single Viewon [...] = na DAP = na Normal [facility] eGFRon 10-18-2022 GFR/1.73 sq M.predicted among non-blacks MDRD (S/P/Bld) [Vol rate/Area] 138 mL/min/1.73 m2 Normal >=[address] [facility] Comment on above: Order Comment: Order added by Discern Expert. Result Comment: Strategic Account Manager sydnie kidney disease could be indicated at eGFR's of less than 60 mL/min/1.73m2. Kidney failure is indicated at less than 15 mL/min/1.73m2. Performed By: #### 1 2538183, 0509748, 8306919, 27291073, 4379918, 54126500, 34795263, 1257216, 4304917 #### [facility] [address] [place] [address] US PREG ANATOMY SINGLEon US PREG ANATOMY [...] CAMELIA MENDEZ Date: 2022-10-08 15:26 Normal [facility] CHLAMYDIA/GONOCOCCUS TETO ( AB/URINE/PAPon 03-21-2023 Chlamydia trachomatis, TETO Negative Normal Negative [facility] Comment on above: Performed By: #### C T/NGNA #### [facility] [address] [address] [address] Maribell Perea Neisseria gonorrhoeae, TETO Negative Normal Negative [facility] Comment on above: Performed By: #### C T/NGNA #### [facility] [address] [address] [address] Maribell Perea VAGINITIS/VAGINOSIS DNA PROB Romeo 08-25-2022 Beatrice species Negative Normal Negative [facility] Comment on above: Performed By: #### V AGINT ####[facility] [address] [address]DrJose Perea Gardnerella vaginalis Negative Normal Negative [facility] Comment on above: Performed By: #### V AGINT ####[facility] [address] [address]DrJose Perea Trichomonas vaginalis Negative Normal Negative [facility] Comment on above: Performed By: #### V AGINT ####[facility] [id number] [address]Dr. Maribell Perea HEP B SURFACE ANTIGEN SCREEN on 07-25-2022 HBsAg Screen Negative Normal Negative [facility] Comment on above: Performed By: #### H BSANS #### [facility] [address] [place] [address] Dr. Maribell Perea HEPATITIS C VIRUS AB W/ REFL EX QUANTon 07-25-2022 HCV AB Non-Reactive Normal Non Reactive [facility] Comment on above: Performed By: #### H CVPCRR #### [facility] [address] [place] [address] Dr. Maribell Perea Interpretation: Comment Normal [facility] Comment on above: Result Comment: Not infected with HCV unless early or acute infection is suspected (which may be delayed in an immunocompromised individual), or other evidence exists to indicate HCV infection. Performed By: #### H CVPCRR #### [facility] [address] [place] [address] Dr. Maribell Perea HIV 1 AND 2 WITH REFLEXon HIV Screen 4th Generation wRfx Non-Reactive Normal Non Reactive [facility] Comment on above: Result Comment: HIV Negative HIV-1/HIV-2 antibodies and HIV-1 p24 antigen were NOT detected. There is no laboratory evidence of HIV infection. Performed By: #### H IV12 #### [facility] [address] [address] [address] Maribell Perea RPR QUANTon 07-25-2022 Rapid Plasma Reagin, Quant Non-Reactive Normal NonRea<1:1 [facility] Comment on above: Result Comment: Plea se Note: This test does not meet current guidelines for screening and diagnosis of syphilis. This test is intended for following treatment response in patients being treated for syphilis infection. To screen for syphilis infection, a reflex cascade that includes both RPR and a treponema-specific assay should be utilized, such as Treponema pallidum (Syphilis) Screening [place] ([address]1600) or Rapid Plasma Reagin (RPR) Test With Reflex to Quantitative RPR and Confirmatory Treponema pallidum Antibodies (413037). Performed By: #### R PRQ #### [facility] [address] [place] [address] Dr. Maribell Perea RUBELLA AB IGGon 07-25-2022 Rubella Antibodies, IgG <0.90 Critically low Immune > 0.99 [facility] Comment on above: Result Comment: Non- immune <0.90 Equivocal 0.90 - 0.99 Immune >0.99 Performed By: #### R UBIGG #### [facility] [address] [address] [address] Maribell Perea CULTURE URINEon 07-23-2022 CULTURE URINE Culture Observations: NO GROWTH. Normal [facility] Comment on above: Performed By: #### U RCX ####[facility] [address] [address]Dr. Maribell Perea GLYCOHEMOGLOBIN A1Con 2022 ADA RECOMMENDATION SEE BELOW Normal [facility] Comment on above: Result Comment: ADA RECOMMENDED LIMIT 4.0 - 6.0 ADA THERAPEUTIC TARGET < 7.0 ACTION SUGGESTED > 7.0 Performed By: #### A 1C #### [facility] [address] [place], [place] [address] Dr. Maribell Perea Glucose [Mass/Vol] 97 mg/dL Normal [facility] Comment on above: Performed By: #### A 1C #### [facility] [address] [place], [place] [address] Dr. Maribell Perea HbA1c (Bld) [Mass fraction] 5.0 % Normal 4.5-6.2 [facility] Comment on above: Performed By: #### A 1C #### [facility] [address] [address] [address] Maribell Perea BEULAH BOX TEST PT SEND OUTo n 07-23-2022 SENT TO REF LAB 07/23/2022 Normal [facility] Comment on above: Performed By: #### N BOX #### [facility] [address] [place], [place] [address] Dr. Maribell Perea TYPE AND SCREENon 07-23-2022 TYPE AND SCREEN Negative Normal [facility] Comment on above: Performed By: #### T NS ####[facility] [address] [place], [place] [address]EkDr. Maribell Perea US PREG TVon 06-28-2022 US [...] by: CAMELIA MENDEZ Date: 2022-06-28 09:17 Normal [facility] Vital Signs Date Time Vital Sign Value Performing Clinician Facility 03-19-2024 15:39-0400 Body mass index (BMI) [Ratio] 22.26 kg/m2 Luana VALDOVINOS Work Phone: [facility] 03-19-2024 15:39-0400 Body weight 51.71 kg Luana VALDOVINOS Work Phone: [facility] 03-19-2024 15:39-0400 Diastolic blood pressure 72 mm[Hg] Luana VALDOVINOS Work Phone: [facility] 03-19-2024 15:39-0400 Systolic blood pressure 110 mm[Hg] Luana VALDOVINOS Work Phone: [facility] 06-18-2023 15:11-0500 Blood Pressure Location [facility] 06-18-2023 15:11-0500 Body temperature 97.88 [degF] [facility] 06-18-2023 15:11-0500 Diastolic blood pressure 76 mm[Hg] [facility] 06-18-2023 15:11-0500 Heart rate 90 /min [facility] 06-18-2023 15:11-0500 SaO2% (BldA) [Mass fraction] 98 % [facility] 06-18-2023 15:11-0500 Systolic blood pressure 116 mm[Hg] [facility] 10-19-2022 13:00-0400 Hourly Rounding Jona Cristin [facility] 10-19-2022 13:00-0400 Promise to Return Jona Cristin [facility] 10-19-2022 12:23-0400 Heart rate 101 /min Jona Cristin [facility] 10-19-2022 12:23-0400 SaO2% (BldA) [Mass fraction] 98 % Jona Cristin [facility] 10-19-2022 12:23-0400 Body temperature 98.06 [degF] Jona Cristin [facility] 10-19-2022 12:23-0400 Diastolic blood pressure 65 mm[Hg] Jona Cristin [facility] 10-19-2022 12:23-0400 Mean blood pressure 77 mm[Hg] Jona Cristin [facility] 10-19-2022 12:23-0400 Systolic blood pressure 102 mm[Hg] Jona Cristin [facility] 10-19-2022 12:15-0400 Hourly Rounding Jona Cristin [facility] 10-19-2022 12:15-0400 Promise to Return Jona Cristin [facility] 10-19-2022 11:21-0400 Hourly Rounding Jona Cristin [facility] 10-19-2022 11:21-0400 Promise to Return Jona Cristin [facility] 10-19-2022 08:24-0400 Heart rate 103 /min Jona Cristin [facility] 10-19-2022 08:24-0400 SaO2% (BldA) [Mass fraction] 98 % Jona Cristin [facility] 10-19-2022 08:24-0400 Diastolic blood pressure 61 mm[Hg] Jona Cristin [facility] 10-19-2022 08:24-0400 Mean blood pressure 72 mm[Hg] Jona Cristin [facility] 10-19-2022 08:24-0400 Systolic blood pressure 93 mm[Hg] Jona Cristin [facility] 10-19-2022 08:23-0400 Body temperature 98.24 [degF] Jona Cristin [facility] 10-19-2022 05:12-0400 Heart rate 95 /min Jona Cristin [facility] 10-19-2022 05:12-0400 SaO2% (BldA) [Mass fraction] 98 % Jona Cristin [facility] 10-19-2022 05:12-0400 Diastolic blood pressure 41 mm[Hg] Jona Cristin [facility] 10-19-2022 05:12-0400 Mean blood pressure 56 mm[Hg] Jona Cristin [facility] 10-19-2022 05:12-0400 Systolic blood pressure 86 mm[Hg] Jona Cristin [facility] 10-19-2022 05:12-0400 Body temperature 98.6 [degF] Jona Cristin [facility] 10-18-2022 22:59-0400 Respiratory rate 20 /min Jona Cristin [facility] 10-18-2022 21:45-0400 Mean blood pressure 84 mm[Hg] Jona Cristin [facility] 10-18-2022 21:45-0400 Respiratory rate 15 /min Jona Cristin [facility] 10-18-2022 21:00-0400 Mean blood pressure 82 mm[Hg] Jona Cristin [facility] 10-18-2022 21:00-0400 Respiratory rate 17 /min Jona Cristin [facility] 10-18-2022 20:00-0400 Mean blood pressure 89 mm[Hg] Jona Cristin [facility] 10-18-2022 14:08-0400 gluc 93 mg/dL Jona Cristin [facility] 10-18-2022 14:08-0400 gluc Jona Amaral [facility] 10-18-2022 14:08-0400 Respiratory rate 15 /min Jona Amaral [facility] 10-18-2022 13:30-0400 Heart rate 108 /min Jona Amaral [facility] 10-18-2022 13:30-0400 Respiratory rate 16 /min Jona Amaral [facility] Encounters Encounter Date Encounter Type Care Provider Facility Start: 03-23-2024 End: 03-23-2024 ambulatory IRVING DELORES Not Available Start: 03-23-2024 End: 03-23-2024 Bamboo flowsheet Irving Delores DO Work Phone: [facility] Start: 03-23-2024 End: 03-23-2024 Bamboo flowsheet Irving Delores DO Work Phone: [facility] Start: 03-19-2024 End: 03-19-2024 ambulatory LUANA BEJARANO Not Available Start: 03-19-2024 End: 03-19-2024 flow sheet Luana VALDOVINOS Work Phone: [facility] Comment on above: Third trimester preg ida; 36 weeks gestation of Start: 03-19-2024 End: 03-19-2024 Bamboo flowsheet Luana VALDOVINOS Work Phone: [facility] Start: 03-19-2024 End: 03-19-2024 Bamboo flowsheet Luana VALDOVINOS Work Phone: [facility] Start: 03-05-2024 End: 03-05-2024 ambulatory IRVING DELORES Not Available Start: 02-20-2024 End: 02-20-2024 ambulatory LUANA DARCI Not Available Start: 02-05-2024 End: 02-05-2024 ambulatory IRVING DELORES Not Available Start: 01-22-2024 End: 01-22-2024 ambulatory LUANA DARCI Not Available Start: 12-25-2023 End: 12-25-2023 ambulatory IRVING DELORES Not Available Start: 11-27-2023 End: 11-27-2023 ambulatory IRVING DELORES Not Available Start: 10-29-2023 End: 10-29-2023 ambulatory LUANA BEJARANO Not Available Start: 10-01-2023 End: 10-01-2023 ambulatory IRVING DELORES Not Available Start: 09-05-2023 End: 09-05-2023 ambulatory IRVING DELORES Not Available Start: 06-18-2023 End: 06-18-2023 Lab Drop off [facility] Start: 06-18-2023 End: 06-18-2023 Patient encounter procedure [facility] Start: 10-22-2022 End: 10-22-2022 ambulatory Roslyn Valdes Facility:CD:[id number] Start: 10-18-2022 End: 10-19-2022 ambulatory Sahil BUTLER Facility:[facility] Start: 10-18-2022 End: 10-19-2022 Observation Jona Amaral [facility] Start: 10-06-2022 End: 10-07-2022 ambulatory LUANA BEJARANO . Facility: Start: 08-23-2022 End: 08-23-2022 ambulatory LUANA BEJARANO . Facility: Start: 07-23-2022 End: 07-24-[address] IRVING LIMON . Facility:[facility] Start: 06-28-2022 End: 06-29-[address] IRVING LIMON . Facility:[facility] Start: 06-06-2022 ambulatory Esperanza Dong y:[facility] Procedures Date Procedure Procedure Detail Performing Clinician Start: 03-19-2024 Urnls dip stick/tabl et rgnt non-auto w/o micrscp Luana Bejarano PA Work Phone: Plan of Treatment Date Care Activity Detail Author Start: 03-19-2024 End: 03-19-2025 Strep B DNA probe, amplification Strep B DNA probe, amplification Lab Routine Third trimester Expected: 03/19/2024 (Approximate), Expires: 03/19/2025 [facility] Work Phone: Comment on above: Expected: 03/19/2024 (Approximate), Expires: 03/19/2025 Immunizations Immunization Date Immunization Notes Care Provider Ekaterina wilson 02-09-2021 meningococcal B vacc ine, recombinant, OMV, adjuvanted [email or web address] [facility] 02-09-2021 meningococcal oligosaccharide (groups A, C, Y and W-135) diphtheria toxoid conjugate vaccine (MCV4O) [email or web address] [facility] 02-09-2021 hepatitis A vaccine, pediatric/adolescent dosage, 2 dose schedule [email or web address] [facility] 07-14-2018 hepatitis A vaccine, adult dosage [email or web address] [facility] 07-14-2018 HPV, unspecified formulation [email or web address] [facility] 07-14-2018 meningococcal B vacc ine, fully recombinant [employer]) [facility] 12-26-2015 HPV, unspecified formulation [email or web address] [facility] 12-26-2015 meningococcal ACWY vaccine, unspecified formulation [email or web address] [facility] 12-26-2015 tetanus toxoid, unspecified formulation [email or web address] [facility] 04-28-2009 influenza virus vacc ine, unspecified formulation [email or web address] [facility] 04-28-2008 influenza virus vacc ine, unspecified formulation [employer] [facility] 02-26-2008 diphtheria, tetanus toxoids and acellular pertussis vaccine [employer] ([employer]) [facility] 02-26-2008 measles, mumps and rubella virus vaccine [employer] ([employer]) [facility] 02-26-2008 poliovirus vaccine, unspecified formulation [employer]) [facility] 02-26-2008 varicella virus vaccine Vincent Tivity [facility] 10-27-2003 diphtheria, tetanus toxoids and acellular pertussis vaccine [employer] ([employer]) [facility] 10-27-2003 haemophilus influenz ae type b vaccine, PRP-OMP conjugate [employer] ([employer]) [facility] 10-27-2003 measles, mumps and rubella virus vaccine [employer] ([employer]) [facility] 10-27-2003 varicella virus vaccine Vincent Medivancer enosiX [facility] 04-28-2003 diphtheria, tetanus toxoids and acellular pertussis vaccine [employer] (formerly [employer]) [facility] 04-28-2003 haemophilus influenz ae type b vaccine, PRP-OMP conjugate [employer] (formerly [employer]) [facility] 04-28-2003 hepatitis B vaccine, pediatric or pediatric/adolescent dosage [employer] (formerly [employer]) [facility] 04-28-2003 pneumococcal conjuga te vaccine, 13 valent [employer]) [facility] 04-28-2003 poliovirus vaccine, unspecified formulation [employer]) [facility] 2002 diphtheria, tetanus toxoids and acellular pertussis vaccine Jona Cristin [facility] 2002 haemophilus influenz ae type b vaccine, PRP-OMP conjugate [employer] (formerly [employer]) [facility] 2002 pneumococcal conjuga te vaccine, 13 valent Jona enosiX [facility] 2002 poliovirus vaccine, unspecified formulation Jona Cristin [facility] 2002 diphtheria, tetanus toxoids and acellular pertussis vaccine Jona enosiX [facility] 2002 haemophilus influenz ae type b vaccine, PRP-OMP conjugate [employer]) [facility] 2002 hepatitis B vaccine, pediatric or pediatric/adolescent dosage Jona Cristin [facility] 2002 pneumococcal conjuga te vaccine, 13 valent Jona Cristin [facility] 2002 poliovirus vaccine, unspecified formulation [employer]) [facility] 2002 hepatitis B vaccine, pediatric or pediatric/adolescent dosage Jona Cristin [facility] Payers Date Payer Category Payer [facility] er [id number] 2023 Unknown BCBS BCBS [id number] 2023-Present [phone] [address] [place] [address] [id number] 2023 Unknown [id number] 2023 Private Health Insurance [id number] 2021 Private Health Insurance 2002 Unknown [id number] 93 2002 Unknown [id number] 2.16.840.1.053344.3.579.2.5 93 2002 Unknown [id number] 2.16.840.1.352423.3.579.2.5 93 2002 Unknown [id number] 2.16.840.1.031308.3.579.2.5 93 2002 Unknown [id number] 2.16.840.1.341865.3.579.2.7 27 2002 Unknown [id number] 2.16.840.1.355718.3.579.2.7 27 2002 Unknown [id number] 2.16.840.1.209496.3.579.2.1 259 2002 Unknown [id number] 2.16.840.1.868869.3.579.2.1 259 2002 Unknown [id number] 2.16.840.1.506670.3.579.2.1 259 2002 Unknown [id number] 2.16.840.1.861776.3.579.2.1 259 2002 Unknown [id number] 2.16.840.1.792489.3.579.2.1 259 2002 Unknown [id number] 2.16.840.1.390433.3.579.2.1 259 2002 Unknown [id number] 2.16.840.1.657201.3.579.2.1 259 2002 Unknown [id number] 2.16.840.1.393789.3.579.2.1 259 2002 Unknown [id number] 2.16.840.1.525907.3.579.2.1 259 2002 Unknown [id number] 2.16.840.1.483375.3.579.2.1 259 2002 Unknown [id number] 2.16.840.1.992095.3.579.2.1 259 1959 Self-pay 1959 Unknown [id number] Unknown [id number] [id number] 93 Social History Date Type Detail Facility Tobacco Never smoker [facility] Comment on above: denies Tobacco smoking status No Smokin g Status Entered [facility] Start: 09-05-2023 Sex Assigned At Female F [facility] Start: 06-18-2023 End: 10-29-2023 Tobacco smoking status Never smoked tobacco (finding) [facility] Comment on above: denies Tobacco smoking status Never [facility] Comment on above: denies Start: 10-29-2023 Tobacco use and exposure Smokeless tobacco non-user [facility] Start: 03-05-2024 End: 03-19-2024 Alcoholic beverage intake Lifetime non-drinker (finding) [facility] Start: 09-05-2023 History of Social function [facility] Start: 10-29-2023 Tobacco Comment N/A [facility] Start: 11-15-2022 Alcohol Comment caffeine intak e: 1-2 cups per day [facility] Start: 07-23-2023 [facility] Start: 2002 Sex assigned at Female [facility] Start: 10-29-2022 Gender identity Identifies as female gender (finding) [facility] Goals Date Patient Goal Desired Activity /State Personal health goal Functional Status Date Assessment Result Facility 06-18-2023 Functional Status N/A [facility] 10-18-2022 Functional Status N/A [facility] 10-18-2022 Functional Status [facility] Clinical Notes 10-18-2022 to 03-19-2024 ARUNA Singh - 03/19/2024 3:10 PM EDT Note Date & Type Note Facility 03-19-2024 History of Present illness Narrative Reason for Appointment: Patient ID: Sidney Candelario is a 23 y.o. female who presents for No chief complaint on file. Patient presents today for Return OB appointment. MEDICATIONS No current outpatient medications ALLERGIES No Known Allergies PROBLEMS Active Ambulatory Problems Diagnosis Date Noted Nausea 11/27/2022 Missed menses 09/03/2023 Resolved Ambulatory Problems Diagnosis Date Noted No Resolved Ambulatory Problems Past Medical History: Diagnosis Date Breast screening HISTORY PAST MEDICAL HISTORY SOCIAL HISTORY Past Medical History: Diagnosis Date Breast screening Received clinical breast exam but not referred for further evaluation based on their clinical breast exam. Social History Tobacco Use Smoking status: Never Smokeless tobacco: Never Tobacco comments: N/A Substance Use Topics Alcohol use: Never Comment: caffeine intake: 1-2 cups per day Drug use: Never FAMILY HISTORY No family history on file. SURGICAL HISTORY No past surgical history on file. REVIEW OF SYSTEMS Review of Systems: Review of Systems Constitutional: Negative. HENT: Negative. Eyes: Negative. Respiratory: Negative. Cardiovascular: Negative. Gastrointestinal: Negative. Genitourinary: Negative. Musculoskeletal: Negative. Skin: Negative. Neurological: Negative. All other systems reviewed and are negative. Hematological: Negative. Endocrine: Negative. Allergic/Immunologic: Negative. OBJECTIVE Objective: Physical Exam Constitutional: Appearance: Normal appearance. She is normal weight. HENT: Head: Normocephalic. Cardiovascular: Rate and Rhythm: Normal rate. Pulses: Normal pulses. Pulmonary: Effort: Pulmonary effort is normal. Breath sounds: Normal breath sounds. Abdominal: Palpations: Abdomen is soft. Musculoskeletal: General: Normal range of motion. Neurological: General: No focal deficit present. Mental Status: She is alert and oriented to person, place, and time. Psychiatric: Mood and Affect: Mood normal. Behavior: Behavior normal. Thought Content: Thought content normal. Judgment: Judgment normal. Vitals and nursing note reviewed. Vitals: Estimated body mass index is 21.68 kg/m as calculated from the following: Height as of 10/01/22: 5'. Weight as of 03/05/24: 111 lb. BP: Patient's last menstrual period was 06/29/2023. ASSESSMENT & PLAN ICD-10-CM 1. Third trimester Z34.93 Strep B DNA probe, amplification POCT urinalysis dipstick manually resulted 2. 36 weeks gestation of Z3A.36 Patient is doing well but has complaints of being tired and having maternal discomfort due to . Patient verbalized frequent movement and was instructed to perform kick counts three times per day. labor precautions were given, LARC consent was signed/declined, and GBS was obtained. Cervical check was performed and patient is 0cm dilated. Orders Placed This Encounter Procedures Strep B DNA probe, amplification POCT urinalysis dipstick manually resulted Follow Up: Patient is to return to office in 1 week for routine OB appointment Documented by Ines Montes on behalf of: ARUNA Singh documented in this encounter [facility] 06-18-2023 Hospital Discharge instructions Patient Education 06/18/2023 16:34:28 Pharyngitis, Klbb-gj-Uonq Pharyngitis Pharyngitis is a sore throat (pharynx). [...] Follow these instructions at home: Medicines Take bjcy-oqg-vipeckq and prescription medicines only as told by [...] and water are not available, use hand air boatswain. Do not touch your eyes, nose, or [...] provider. Document Revised: 08/23/2021 Document Reviewed: 08/23/2021 [employer] Patient Education 2022 [email or web address] 06/18/2023 16:34:25 Viral Illness, Adult Viral Illness, [...] Medicines to relieve symptoms. These can include ponb-szn-vdycgmo medicine for pain and fever, medicines for cough or congestion, and medicines to relieve diarrhea. Antiviral medicines. These medicines are available only for certain types of viruses. Some viral illnesses can be prevented with vaccinations. A common example is the flu shot. Follow these instructions at home: Medicines Take kaio-qdc-ptzbhlz and prescription medicines only as told by [...] and water are not available, use hand air boatswain. Avoid touching your nose, eyes, and mouth, [...] provider. Document Revised: 10/10/2020 Document Reviewed: 04/05/2020 [employer] Patient Education 2022 [email or web address] [facility] 06-18-2023 Evaluation + Plan note Diagnostic Tests PendingGroup A Strep by PCR 06/18/23 [facility] 01-23-2023 Note Procedure History None. Hospital [...] drug abuse. ED physician discussed case with educational therapy teacher Dr. Butler and PLATING INSPECTOR Dr. Mortensen. Telemetry monitoring and echocardiogram was [...] is written under the wrong FIN [facility] Comment on above: Result Comment: Elec [...] drug abuse. ED physician discussed case with educational therapy teacher Dr. Butler and PLATING INSPECTOR Dr. Mortensen. Telemetry monitoring and echocardiogram was [...] 78.2 % Lymph Auto - 12.3 % [place] Auto - 8.5 % Eos Auto - 0.6 % Basophil Auto - 0.4 % Neutro Absolute - 12.7 E9/L Lymph Absolute - 2.0 E9/L [place] Absolute - 1.4 E9/L [employer] - [...] UA Nitri (more content not included)... [facility] Comment on above: Result Comment: Elec [...] care. Jono Mortensen M.D. lr Dictated: 10/19/2022 [id number] Transcribed: 10/19/2022 cc:Irving Limon D.O. [facility] Comment on above: Result Comment: Elec tronically Signed By: Festus MOSS, Jono Layne\.br\Date and Time Signed: 10/20/22 02:24 EDT 10-19-2022 Note Order received, corinne t reviewed. Attempted PT evaluation at 1424 on 10/19/22. Pt. is out of room and has been discharged from acute medical facility prior to completion of PT evaluation. No PT charges. [facility] 10-19-2022 Note Echocardiology Procedure Exam Date/Time Accession # Ordering Echo Transthoracic 10/19/2022 12:02 EDT [id number] Favian Ahumada DO Complete CPT code [id number] Reason for Exam (Echo Transthoracic Complete) Syncope Report [facility] [address] [place] [address] Adult Echocardiogram Report Name: SIDNEY CANDELARIO Study Date: 10/19/2022 11:33 AM BP: 93/61 mmHg Patient Location: [address] [place] [address] HR: 95 : 2000 Gender: Female Height: 60 in Age: 22 yrs Ethnicity: T Weight: 110 lb Reason For Study: Syncope BSA: 1.4 m2 History: No cardiac history per patient Ordering Physician: Kassidy Performed By: Ro Guerrero, CONNOR Interpretation Summary Ejection Fraction = 65-70%. The [...] MD Transcribed by: MAYRA Technologist: ÁLVARO [facility] 10-19-2022 Evaluation + Plan note Extrac [...] made to ensure accuracy, however, inadvertently computerized financial supervisor mistakes may be present. Dr. Jona Bowser [facility] Hospitalist Ordered: acetaminophen, 650 mg = 2 [...] Weight Diagnostic Tests Pending * Cortisol 10/19/22 [facility]05-12-2023 NoteChief Complaint Dizziness Reason for Consultation [...] not improve, she sought medical attention [facility] which showed [...] Historical No q (more content not included)...[facility] Result Comment: Electronically Signed By: Isreal MOSS, Sahil Swartz.br\Date and Time Signed: 10/19/22 10:01 [id number] Hospital Discharge instructions Patient Education 10/19/2022 09:40:44 [...] Treatment for this condition includes: Antibiotic medicine. Tsvq-vbx-lwnwpfj medicines to treat discomfort. Drinking enough water [...] Follow these instructions at home: Medicines Take xcfq-apl-gnpdspm and prescription medicines only as told by [...] provider. Document Revised: 01/06/2021 Document Reviewed: 01/06/2021 [employer] Patient Education 2022 [email or web address]. 10/19/2022 09:40:42 Near-Syncope, Wvib-ok-Gskg Near-Syncope Near-syncope is when you suddenly feel [...] Follow these instructions at home: Medicines Take tpwf-cok-oecxbly and prescription medicines only as told by [...] provider. Document Revised: 10/05/2021 Document Reviewed: 10/05/2021 [employer] Patient Education 2022 [email or web address]. Follow Up Care 10/18/2022 13:28:40 With:Sahil Butler MD Address: [address] [place] [phone] When:2 weeks With:Roslyn Valdes MD, [facility] Address: [phone] When:2 to 4 days [facility]05-11-2023 NoteChief Complaint pt reports being 27 [...] drug abuse. ED physician discussed case with educational therapy teacher Dr. Butler and PLATING INSPECTOR Dr. Mortensen. Telemetry monitoring and echocardiogram was [...] Lymph Auto: 11.2 % Low (10/18/22 14:39:00) [place] Auto: 8.3 % (10/18/22 14:39:00) Eos Auto: 0.5 % (10/18/22 14:39:00) Basophil Auto: 0.6 % (10/18/22 14:39:00) Neutro Absolute: 12.5 E9/L High (10/18/22 14:39:00) Lymph Absolute: 1.8 E9/L (10/18/22 14:39:00) [place] Absolute: 1.3 E9/L High (10/18/22 14:39:00) Eos [...] the patient i (more content not included)...[facility]Result Comment: Electronically Signed By: Cristin MOSS, Jona Rivera\.rafael\Date and Time Signed: 10/18/22 19:03 EDTEvaluation note* Diagnosis Third trimester state, incidental 36 weeks gestation of documented in [facility] Narrative No data available for this section [facility] No data available for this section [facility] No data available for this section [facility] Summary Purpose Family History No Family History Records FoundNo Family History Records Found No data available for this section No data available for this section No Family History Records Found Advance Directives No Advanced Directives Records FoundNo Advanced Directives Records FoundNo Advanced Directives Records Found Additional Source Comments INFORMATION SOURCE (unrecogn ized section and content) DATE CREATED AUTHOR 10/13/2022 [facility] DATE CREATED AUTHOR AUTHOR'S ORGANIZ ATION 01/24/2023 [facility] DATE CREATED AUTHOR AUTHOR'S ORGANIZ ATION 03/25/2024 [facility] EPIC Patient Care team informatio n (unrecognized section and content) Personnel Name: Roslyn Valdes MD Address: Address: [address] [place] [address] Personnel Name: Roslyn Valdes MD Address: Address: [address] [place] [address] Personnel Name: Roslyn Valdes MD Address: Address: [address] [place] [address] Reason for Visit (unrecogniz ed section and content) Reason Comments Routine Visit FOR RECORDS PERTAINING TO PATIENTS WHO ARE [...] BE BASED ON THE PRIMARY CLINICAL RECORDS. [facility]. provides no warranty or guarantee of the accuracy or completeness of information in this document.
[2024-03-26 13:46] VITALS: BP 124/81; PULSE 104
[2024-03-26 14:51] LABS: Bilirubin Urine NEGATIVE (NEGATIVE); Blood Urine NEGATIVE (NEGATIVE); Clarity Urine CLEAR (CLEAR); Color Urine LT. YELLOW (YELLOW); Glucose Urine UA NEGATIVE (NEGATIVE); Ketones Urine 15 mg/dL (NEGATIVE); Leukocyte Esterase Urine TRACE (NEGATIVE); Nitrite Urine NEGATIVE (NEGATIVE); Protein Urine NEGATIVE (NEG/TRACE); Urobilinogen Urine 0.2 EU/dL (0.2-1.0); pH Urine 7.5 (5.0-9.0)
[2024-03-26 14:52] LABS: Urine Microscopic Indicated YES
[2024-03-26 15:03] LABS: Bacteria Urine TRACE #/HPF (NONE SEEN); Cast Seen? NONE SEEN #/LPF (NONE SEEN); Crystals Seen? None Seen #/HPF (None Seen); Mucus Urine NONE SEEN (NONE SEEN); RBC Urine NONE SEEN #/HPF (0-2); Squamous Epithelial Cell Urine MODERATE #/LPF (NONE/RARE); Urine Culture Indicated NO; WBC Urine 0-2 #/HPF (NONE SEEN)
== END 2024-03-26 17:41 | disposition home or self-care (01) ==
PROVIDERS: Admitting Provider Obstetrics & Gynecology; Visit Provider Obstetrics & Gynecology
DX: O47.9 False labor, unspecified (principal); Z3A.00 Weeks of gestation of pregnancy not specified
CPT/HCPCS: 81001; G0378; G0379

== ENCOUNTER 2024-03-27 15:05 | Outpatient (OUT) | payer BC, SELFPAY ==
--- OUTSIDE RECORDS SUMMARY | 2024-03-27 15:14 | XMS_ITS | CCD ---
Author Organization [facility] Care Team Providers Care Process Control Tech Name Role Phone DELORES ., DR MAN [...] Primary Care Physician Sahil BUTLER Consulting Unavailable Cristin, Jona S Admitting Unavailable Cristin, Jona S Attending Unavailable Sahil BUTLER Consulting Unavailable Sahil BUTLER Consulting Unavailable Roslyn Valdes Admitting Unavailable Esperanza SONG Attending Unavailable Unavailable Primary Care Provider UnavailIRVING Justice Attending Unavailable DARCILUANA Attending Unavailable DELORESIRVING HOWELL Attending Unavailable DELORESIRVING HOWELL Attending Unavailable DARCILUANA Attending Unavailable DELORESIRVING Attending Unavailable DARCI LUANA Attending Unavailable DELORESIRVING Attending Unavailable DARCILUANA Attending Unavailable IRVING LIMON Attending Unavailable Medications Current Medications Medication Drug Class(es) Dates Sig (Normalized) Sig (Original) cephalexin 500 mg oral capsule (1 source) Cephalosporin Antibacterial Start: 10-19-2022 End: 10-23-2022 take 1 capsule by mouth every six hours Keflex 500 mg Cap 500 mg = 1 cap(s), Oral, q6hr, X 4 day(s), # 16 cap(s), Refills(s) 0, Pharmacy: [facility], 152, cm, 10/18/22 13:33:00 EDT, Height/Length [...] SEXUAL TRNSMS] Onset: 08-31-2022 Episodic Menstrual disorders (10 sources) Irregular menstruation, unspecified; Translations: [Missed period] Onset: 07-23-2022 Chronic Other female genital disorders (4 sources) Other specified noninflammatory disorders of vagina; Translations: [OTH SPEC NONINFLAMMATORY D/O VAGINA] Onset: 08-23-2022 Episodic Other hematologic conditions (1 source) Abnormal finding on evaluation procedure; Translations: [Other specified abnormalities of plasma proteins] Onset: 10-18-2022 Episodic Other and delivery including normal (19 sources) Encounter for supervision of normal , [...] [36 weeks gestation of ] 03-19-2024 Episodic Residual codes; unclassified (4 sources) Gestation period, 37 weeks; Translations: [37 weeks gestation of ] Onset: 03-23-2024 03-23-2024 Episodic Short gestation; low weight; and growth retardation (4 sources) Jizhn-per-nhbqw baby; Translations: [ small for gestational age, unspecified weight] Onset: 03-23-2024 03-23-2024 Episodic Syncope (1 source) Syncope and collapse; Translations: [Syncope and collapse] Onset: 10-18-2022 Episodic Unclassified (3 sources) Decreased body mass index 05-26-2020 Unclassified (3 sources) Patient encounter status 05-25-2020 Unclassified (6 sources) OB Reminders Onset: 12-24-2022 12-24-2022 Urinary tract infections (1 source) Urinary tract infectious disease; Translations: [Urinary tract infection, site not specified] Onset: 10-18-2022 Episodic Viral infection (1 source) Viral disease; Translations: [Viral infection, unspecified] Onset: 06-18-2023 Episodic Past or Other Problems Problem Classification Problem Date Documented Da te Episodic/Chronic Nausea and vomiting (6 sources) Nausea; Translations: [Nausea] Onset: 11-27-2022 11-27-2022 Episodic Results Test Name Value Interpretation Reference Range Facility Urinalysis macro (dipstick) panel (U)on 03-19-2024 Bilirubin, UA Negative Negative - 4(70) +++ mg/dL [facility] Blood, UA Negative Negative - 50 Jb/mcL [facility] Clarity, UA Cloudy [facility] Color, UA Yellow [facility] Glucose, UA Negative Negative - 1999(110) ++++ mg/dL [facility] Interpretation and review of laboratory results Abnormal [facility] Ketones, UA Negative Negative - 160(16) ++++ mg/dL [facility] Leukocytes, UA Positive Negative - 500+++ Josh/mcL [facility] Comment on above: small Nitrite, UA Negative Negative - Positive [facility] pH, UA 7.0 5 - 9 [facility] Protein, UA Negative Negative - 2000(20) ++++ mg/dL [facility] Spec Grav, UA 1.020 1 - 1.03 [facility] Urobilinogen, UA 0.2 0.2 - 12 mg/dL [facility] Nursing Assessmenton 023 Nursing Assessment [id number] #1.00CD:127 Normal [facility] Discharge Instructionson Discharge Instructions [id number] #1.00CD:127 Normal [facility] C Urineon 10-20-2022 Bacteria identified Cx Nom [...] Locations R1: This test was performed at: [facility], [address] [place] [address], [address] [place] [address], [facility] Comment on above: Performed By: #### 2 [id number], [id number], [id number] ####[facility] [address] [place], [place] [id number] Cortisolon 10-20-2022 Cortisol [Mass/Vol] 18.4 microgram/dL Invalid Interpretation Code 6.2-19.4 [facility] Comment on above: Result Comment: Yudith jeter Note: The reference interval and flagging for this test is for an AM collection. If this is a PM collection please use: Cortisol PM: 2.3-11.9 Performed at: [facility] [address] [id number] PhD Buck Montes Performed By: #### 2 [id number] #### [facility] [address] [place] [address] Auto Diffon 10-19-2022 Basophils/100 WBC (Bld) 0.4 % Normal 0.0-2.0 F [facility] Comment on above: Order Comment: Order Added by Discern Expert. Performed By: #### 2 782966 #### [facility] [address] [place] [address] Basophils/Leukocytes Auto (Bld) [Pure # fraction] 0.1 E9/L Normal 0.0-0.2 [facility] Comment on above: Order Comment: Order Added by Discern Expert. Performed By: #### 2 [id number] #### [facility] [address] [place] [address] Eosinophils/100 WBC (Bld) 0.6 % Normal 0.0-8.0 [facility] Comment on above: Order Comment: Order Added by Discern Expert. Performed By: #### 2 939777 #### [facility] [address] [place] [address] Eosinophils/Leukocytes Auto (Bld) [Pure # fraction] 0.1 E9/L Normal 0.0-0.5 [facility] Comment on above: Order Comment: Order Added by Discern Expert. Performed By: #### 2 456133 #### [facility] [address] [place] [address] Lymphocytes/100 WBC (Bld) 12.3 % Low 14.0-50.0 [facility] Comment on above: Order Comment: Order Added by Discern Expert. Performed By: #### 2 587785 #### [facility] [address] [place] [address] Lymphocytes/Leukocytes Auto (Bld) [Pure # fraction] 2.0 E9/L Normal 1.0-4.0 [facility] Comment on above: Order Comment: Order Added by Discern Expert. Performed By: #### 2 319278 #### [facility] [address] [place] [address] Monocytes/100 WBC (Bld) 8.5 % Normal 4.0-14.0 [facility] Comment on above: Order Comment: Order Added by Discern Expert. Performed By: #### 2 911186 #### [facility] [address] [place] [address] Monocytes/Leukocytes Auto (Bld) [Pure # fraction] 1.4 E9/L High 0.2-1.0 [facility] Comment on above: Order Comment: Order Added by Discern Expert. Performed By: #### 2 758799 #### [facility] [address] [place] [address] Neutrophils/100 WBC (Bld) 78.2 % High 36.0-75.0 [facility] Comment on above: Order Comment: Order Added by Discern Expert. Performed By: #### 2 774900 #### [facility] [address] [place] [address] Neutrophils/Leukocytes Auto (Bld) [Pure # fraction] 12.7 E9/L High 2.0-7.5 [facility] Comment on above: Order Comment: Order Added by Discern Expert. Performed By: #### 2 254765 #### [facility] [address] [place] [address] BMPon 10-19-2022 Anion gap [Moles/Vol] 10 mmol/L Normal 6-16 [facility] Comment on above: Performed By: #### 2 060717 #### [facility] [address] [place] [address] Calcium [Mass/Vol] 8.0 mg/dL Low 8.9-11.1 [facility] Comment on above: Performed By: #### 2 093378 #### [facility] [address] [place] [address] Chloride [Moles/Vol] 106 mmol/L Normal 101-111 [facility] Comment on above: Performed By: #### 2 923604 #### [facility] [address] [place] [address] CO2 [Moles/Vol] 23 mmol/L Normal 21-31 [facility] Comment on above: Performed By: #### 2 237445 #### [facility] [address] [place] [address] Creatinine [Mass/Vol] 0.5 mg/dL Normal 0.5-1.3 [facility] Comment on above: Performed By: #### 2 707497 #### [facility] [address] [place] [address] Glucose [Mass/Vol] 82 mg/dL Normal 55-199 [facility] Comment on above: Result Comment: If t his glucose result represents a fasting glucose, interpretation should refer to the following reference range: 55-99 mg/dL Performed By: #### 2 200148 #### [facility] [address] [place] [address] Potassium [Moles/Vol] 3.6 mmol/L Normal 3.5-5.3 [facility] Comment on above: Performed By: #### 2 316483 #### [facility] [address] [place] [address] Sodium [Moles/Vol] 135 mmol/L Normal 135-145 [facility] Comment on above: Performed By: #### 2 701886 #### [facility] [address] [place] [address] Urea nitrogen [Mass/Vol] 5 mg/dL Normal 5-21 [facility] Comment on above: Performed By: #### 2 259935 #### [facility] [address] [place] [address] Urea nitrogen/Creatinine [Mass ratio] 10 No Units Normal 10-20 [facility] Comment on above: Performed By: #### 2 042421 #### [facility] [address] [place] [address] CBC w/ Auto Diffon 3 Erythrocyte distribution width (RBC) [Ratio] 13.6 % Normal 10.9-14.2 [facility] Comment on above: Performed By: #### 2 763707 #### [facility] [address] [place] [address] Hematocrit (Bld) [Volume fraction] 34.1 % Normal 34.0-46.0 [facility] Comment on above: Performed By: #### 2 937673 #### [facility] [address] [place] [address] Hemoglobin (Bld) [Mass/Vol] 11.3 g/dL Low 12.0-16.0 [facility] Comment on above: Performed By: #### 2 897706 #### [facility] [address] [place] [address] MCH (RBC) [Entitic mass] 30.3 pg Normal 27.0-34.0 [facility] Comment on above: Performed By: #### 2 280917 #### [facility] [address] [place] [address] MCHC (RBC) [Mass/Vol] 33.2 g/dL Normal 31.4-36.0 [facility] Comment on above: Performed By: #### 2 924877 #### [facility] [address] [place] [address] MCV (RBC) [Entitic vol] 91.3 fL Normal 80.0-100.0 [facility] Comment on above: Performed By: #### 2 206269 #### [facility] [address] [place] [address] Platelet mean volume (Bld) [Entitic vol] 8.9 fL Normal 6.4-10.8 [facility] Comment on above: Performed By: #### 2 985827 #### [facility] [address] [place] [address] Platelets (Bld) [#/Vol] 146.0 E9/L Low 150.0-500.0 [facility] Comment on above: Performed By: #### 2 520770 #### [facility] [address] [place] [address] RBC (Bld) [#/Vol] 3.7 E12/L Low 4.3-5.9 [facility] Comment on above: Performed By: #### 2 576398 #### [facility] [address] [place] [address] WBC corrected for nucl RBC Auto (Bld) [#/Vol] 16.3 E9/L High 4.0-11.0 [facility] Comment on above: Performed By: #### 2 553457 #### [facility] [address] [place] [address] CHEMISTRYOrdered By: SYSTEM SYSTEM on 10-19-2022 Anion [...] Care Team Admitting Physician - Cristin MOSS, Jnoa Rivera Consulting Physician - Sahil Butler MD [...] Pending Diagnostic Test Results None Pharmacy Information [facility] New Follow Up Appointments after Discharge Follow Up with Isreal MOSS, Sahil Fuller When: Within 2 weeks Where: [address] [place] [address] [phone] Follow Up with Roslyn Valdse MD, [facility] When: Within 2 to 4 days Where: [phone] Medications What How Much When Instructions Next Dose New cephalexin (Keflex 500 mg Cap) 1 Capsules By Mouth Every 6 hours Duration: 4 Days Pickup at [facility] Pharmacy Information [facility]: [address] [place], [place] [id number] [phone] What How Much When Comments Stop Taking [...] condition include: (more content not included)... Normal [facility] ED Clinical Summaryon 2022 ED Clinical Summary [address] [address] ED Clinical Summary Person Information Name: SIDNEY CANDELARIO [facility] Age: 22 Years : 2000 Sex: Female Language: Jamaican PCP: Roslyn Valdes MD Marital Status: Visit [...] 10/18/2022 22:10:25 10/18/2022 22:10:25 10/18/2022 22:10:25 ADDRESS: [address] [place] [phone] PHYS DOC NOTES: MEDICAL INFORMATION: Prescriptions Given: Medications to Continue with No Changes Other Medications ibuprofen (ibuprofen 400 mg Tab) 1 Tablets By Mouth every 6 hours as needed for pain. Refills: 0. PATIENT EDUCATION INFORMATION: Instructions: Follow up: DIAGNOSIS: 1:Near syncope; 2:UTI (urinary tract infection); 3:Hypokalemia; Elevated troponin Normal [facility] ED Patient Education Noteon 10-19-2022 ED Patient Education Note Normal [facility] ED Patient Summaryon 023 ED Patient Summary [address] [address] Patient Discharge Instructions Person Information Name: SIDNEY CANDELARIO Age: 22 Years Arrival Date: 10/18/2022 13:27:27 Discharge Diagnosis: 1:Near syncope; 2:UTI (urinary tract infection); 3:Hypokalemia; Elevated troponin Primary Care Physician: Roslyn Valdes MD Provider Information Primary Provider: Favian Ahumada DO Advanced Punch Press Feeder:None The exam and treatment you received in the Emergency Department were for an urgent problem and are not intended as complete care. It is important that you follow up with a doctor, nurse practitioner, or physician?s conference assistant for ongoing care. If your symptoms [...] opioids can be used to help relieve rnphvimm-ik-wiexih pain and are often prescribed following a [...] be struggling with addiction, tell your health medicare biller and ask for guidance or call [facility]?S National Helpline at 7-917-368-XLLP. y Source: [place] Department of Health and Human Services/Center for Disease Control & Prevention [facility] (more content not included)... Normal [facility] HEMATOLOGYOrdered By: SYSTEM SYSTEM on 10-19-2022 Basophils/100 [...] [facility] HEMATOLOGYOrdered By: Elaine Cruz on 05-12-2023 Erythrocyte distribution width (RBC) [Ratio] 13.6 % [...] Inpatient Clinical Summaryon 10-19-2022 Inpatient Clinical Summary [place] [address] Clinical Summary Person Information: Name: SIDNEY CANDELARIO Age: 22 Years : 2000 Sex: Female PCP: Roslyn Valdes MD Marital Status: Race: White Ethnicity: Non- or Language: Jamaican Visit Id: Visit Reason: Dizziness; UTI, NEAR SYNCOPE, HYPOKALEMIA Speciality: Acuity: Enc Type: Observation Med Service: Medical Arrival: 10/18/2022 13:27:27 Discharge: Dispo Type: Address: [address] [place] [phone] Provider Notes: Diagnosis: 1:Near syncope; 2:UTI (urinary [...] Attending Physician: Jona Amaral MD Consulting Physician: Isreal MOSS, Sahil Fuller Referring Physician: Follow up: With: Address: When: Roslyn Valdes MD, [facility] [phone] Within 2 to 4 days Patient Education Information: Normal [facility] Inpatient Patient Summaryon 10-19-2022 Inpatient Patient Summary [place] [address] Patient Discharge Instructions PERSON INFORMATION Name: SIDNEY CANDELARIO Date of : 2000 Current Date: 10/19/2022 09:40:25 PHYSICIANS Admitting Physician: Jona Amaral MD Primary Care Physician: Roslyn Valdes MD PCP Phone Number: [phone] Comment: Discharge Diagnosis: 1:Near syncope; 2:UTI (urinary [...] up: With: Address: When: [facility] [phone] Within 2 to 4 days In the [...] for pain. Refills: 0. Pharmacy Information: [facility] [place] Comment: PATIENT EDUCATION INFORMATION Instructions: Medication Leaflets: You may receive a survey from [employer] asking you to rate your care experience. Your feedback is important and will help us understand what we do well and how we can improve the quality of care we provide to you, your loved ones and our community. It?s an honor to serve you. Thank you for choosing [facility] Normal [facility] Interdisciplinary Note - Christ e Manageron 10-19-2022 Interdisciplinary Note - Data Report Analyst Pt is awake and alert in bed, previously rounded with Dr. Amaral. Spouse at bedside, Pt is aware of plan for scan today and plan to DC home later today. Declines any concerns or DC needs. Observation status reviewed. PCP verified and insurance information reviewed and DME discussed. Contact information provided and white board updated. [facility] Comment on above: Result Comment: Elec tronically Signed By: Heraclio GRAFF, Sayda\.br\Date and Time Signed: 10/19/22 11:06 EDT Magnesiumon 10-19-2022 Magnesium [Mass/Vol] 1.7 mg/dL Normal 1.3-2.4 [facility] Comment on above: Performed By: #### 2 [id number] #### [facility] [address] [place] [address] Monitor Recordon 10-19-2022 Monitor Record [id number]#1.00CD:127 Normal [facility] Monitor Record [id number]#1.00CD:127 [facility] Monitor Record [id number]#1.00CD:127 [facility] Monitor Record [id number]#1.00CD:127 Normal [facility] Patient Education - Texton 0 10-19-2022 Patient [...] these instructions at home: Medicines ? Take ssqv-nxg-omfufzl and prescription medicines only as told by [...] provider. Document Revised: 10/05/2021 Document Reviewed: 10/05/2021 [employer] Patient Education ? 2022 Pembe Panjur. Obstetrics and Gynecology Urinary Tract Infection, Adult [...] (neurogenic bladder). (more content not included)... Normal [facility] Phosphoruson 10-19-2022 Phosphate [Mass/Vol] 3.8 mg/dL Normal 1.9-4.6 [facility] Comment on above: Performed By: #### 2 [id number] #### [facility] [address] [place] [address] Progress Note-Physicianon Progress Note-Physician Basic Informatio n [...] drug abuse. ED physician discussed case with laborer stores Dr. Butler and ASSISTANT WOMEN'S ROWING COACH Dr. Mortensen. Telemetry monitoring and echocardiogram was [...] made to ensure accuracy, however, inadvertently computerized supervisor files mistakes may be present. Dr. Jona Amaral [...] Lymph Auto: 12.3 % Low (10/19/22 05:47:00) [place] Auto: 8.5 % (10/19/22 05:47:00) Eos Auto: 0.6 % (10/19/22 05:47:00) Basophil Auto: 0.4 % (10/19/22 05:47:00) Neutro Absolute: 12.7 E9/L High (10/19/22 05:47:00) Lymph Absolute: 2 E9/L (10/19/22 05:47:00) [place] Absolute: 1.4 E9/L High (10/19/22 05:47:00) Eos [...] 05:47:00) Magnesium (more content not included)... Normal [facility] Comment on above: Result Comment: Elec tronically Signed By: Cristin MOSS, Jona Rivera\.br\Date and Time Signed: 10/19/22 12:08 EDT Troponin 9 Hr.on 10-19-2022 Troponin I.cardiac [Mass/Vol] 48.10 pg/mL Abnormal 10.10-27.10 [facility] Comment on above: Order Comment: pt is not discharged despite the discharge status. pt is in room 302; third shift phleb was notified not to cancel pending orders. [id number] 10/18/2022 22:15:32 EDT Result Comment: Crit ical [...] Sensitivity Troponin I Instructions For Use, [place], January 2018) Performed By: #### 1 [id number] #### [facility] [address] [place] [address] eGFRon 10-19-2022 GFR/1.73 sq M.predicted among non-blacks MDRD (S/P/Bld) [Vol rate/Area] 138 mL/min/1.73 m2 Normal >=59 [facility] Comment on above: Order Comment: Order added by Discern Expert. Result Comment: Residential Construction Instructor sydnie kidney disease could be indicated at eGFR's of less than 60 mL/min/1.73m2. Kidney failure is indicated at less than 15 mL/min/1.73m2. Performed By: #### 2 763073 #### [facility] [address] [place] [address] Acetamnphn Lvlon 10-18-2022 Acetaminophen [Mass/Vol] ug/mL Low 15-30 [facility] Comment on above: Performed By: #### 1 [id number], 3451152, 0024498, 72402067, 4691475, 90091272, 96379667, 4448622, 1735605 ####[facility] [address] [place] [address] Auto Diffon 10-18-2022 Basophils/100 WBC (Bld) 0.6 % Normal 0.0-2.0 F [facility] Comment on above: Order Comment: Order Added by Discern Expert. Performed By: #### 1 7722557, 9029294, 5303605, 50024349, 3156984, 37784460, 92985153, 2361465, 2643802 ####[facility] [address] [place] [address] Basophils/Leukocytes Auto (Bld) [Pure # fraction] 0.1 E9/L Normal 0.0-0.2 [facility] Comment on above: Order Comment: Order Added by Discern Expert. Performed By: #### 1 2222680, 3139035, 3702918, 41873814, 3476680, 39171359, 69781407, 4651869, 7081152 ####[facility] [address] [place] [address] Eosinophils/100 WBC (Bld) 0.5 % Normal 0.0-8.0 [facility] Comment on above: Order Comment: Order Added by Discern Expert. Performed By: #### 1 0411693, 5323501, 8971749, 05960998, 3263867, 39266474, 45808059, 2315648, 3087768 ####[facility] [address] [place] [address] Eosinophils/Leukocytes Auto (Bld) [Pure # fraction] 0.1 E9/L Normal 0.0-0.5 [facility] Comment on above: Order Comment: Order Added by Discern Expert. Performed By: #### 1 9575003, 8098113, 8827755, 16572507, 8498008, 46643833, 20330936, 8673096, 8533467 ####[place] [address] [place] [address] Lymphocytes/100 WBC (Bld) 11.2 % Low 14.0-50.0 [facility] Comment on above: Order Comment: Order Added by Discern Expert. Performed By: #### 1 5701928, 2575283, 2275717, 81627139, 6557943, 35360927, 20376555, 5921330, 8107085 ####[place] [address] [place] [address] Lymphocytes/Leukocytes Auto (Bld) [Pure # fraction] 1.8 E9/L Normal 1.0-4.0 [facility] Comment on above: Order Comment: Order Added by Linda Expert. Performed By: #### 1 [id number], 1180000, 9356470, 79173100, 8849678, 09795439, 01496580, 0798464, 1824518 ####[address] [place] [address] Monocytes/100 WBC (Bld) 8.3 % Normal 4.0-14.0 [facility] Comment on above: Order Comment: Order Added by Linda Expert. Performed By: #### 1 8388710, 6176901, 0470310, 12177659, 9847540, 79323997, 51264419, 6240671, 9536315 ####[place] [address] [place] [address] Monocytes/Leukocytes Auto (Bld) [Pure # fraction] 1.3 E9/L High 0.2-1.0 [facility] Comment on above: Order Comment: Order Added by Linda Expert. Performed By: #### 1 7847628, 1661586, 1451861, 01012816, 6950488, 97085170, 77096521, 8925327, 4808782 ####[address] [place] [address] Neutrophils/100 WBC (Bld) 79.4 % High 36.0-75.0 [facility] Comment on above: Order Comment: Order Added by Discern Expert. Performed By: #### 1 0778333, 6459037, 9805103, 14408988, 7427714, 70417880, 53340970, 3476763, 9194061 ####[facility] [address] [place] [address] Neutrophils/Leukocytes Auto (Bld) [Pure # fraction] 12.5 E9/L High 2.0-7.5 [facility] Comment on above: Order Comment: Order Added by Discern Expert. Performed By: #### 1 0298311, 4748475, 6373735, 39753116, 7985070, 89940038, 87825242, 1471100, 3417876 ####[facility] [address] [place] [address] BMP 10-18-2022 Creatinine [Mass/Vol] 0.5 mg/dL Normal 0.5-1.3 [facility] Comment on above: Performed By: #### 1 4569500, 2484647, 0234797, 76660049, 0973015, 89896064, 50622656, 5469048, 8353137 #### [facility] [address] [place] [address] Urea nitrogen [Mass/Vol] 7 mg/dL Normal 5-21 [facility] Comment on above: Performed By: #### 1 0529101, 3625771, 0915127, 97076785, 4846465, 95593089, 94818025, 9525813, 6740258 #### [facility] [address] [place] [address] Urea nitrogen/Creatinine [Mass ratio] 14 No Units Normal 10-20 [facility] Comment on above: Performed By: #### 1 3459238, 2004919, 6714369, 75834466, 7331661, 13498779, 14031306, 7436572, 3686554 #### [facility] [address] [place] [address] Anion gap [Moles/Vol] 11 mmol/L Normal 6-16 [facility] Comment on above: Performed By: #### 1 7578055, 6178701, 3572792, 98833255, 6148200, 24099495, 91323388, 8922476, 8878162 #### [facility] [address] [place] [address] Calcium [Mass/Vol] 8.7 mg/dL Low 8.9-11.1 [facility] Comment on above: Performed By: #### 1 9550963, 1371442, 7603441, 24152929, 1875713, 58734478, 06592671, 2231421, 7309166 #### [facility] [address] [place] [address] Chloride [Moles/Vol] 102 mmol/L Normal 101-111 [facility] Comment on above: Performed By: #### 1 0102027, 7019430, 1719965, 65942244, 9394419, 39299015, 32241281, 3804303, 5200581 #### [facility] [address] [place] [address] CO2 [Moles/Vol] 26 mmol/L Normal 21-31 [facility] Comment on above: Performed By: #### 1 3063399, 3226750, 8614851, 65716477, 3105363, 97353820, 29581456, 4904023, 7410447 #### [facility] [address] [place] [address] Glucose [Mass/Vol] 97 mg/dL Normal 55-199 [facility] Comment on above: Result Comment: If t his glucose result represents a fasting glucose, interpretation should refer to the following reference range: 55-99 mg/dL Performed By: #### 1 9115669, 0770719, 1793109, 08700015, 8357374, 87470616, 01016969, 3894116, 2476167 #### [facility] [address] [place] [address] Potassium [Moles/Vol] 3.3 mmol/L Low 3.5-5.3 [facility] Comment on above: Performed By: #### 1 9234527, 8969504, 0921793, 03266125, 8512092, 02369138, 70605644, 5752016, 8372694 #### [facility] [address] [place] [address] Sodium [Moles/Vol] 136 mmol/L Normal 135-145 [facility] Comment on above: Performed By: #### 1 3907749, 7823351, 5801660, 32532987, 4970533, 50377807, 03472232, 3279894, 6740012 #### [facility] [address] [place] [address] CBC w/ Auto Diffon Erythrocyte distribution width (RBC) [Ratio] 13.8 % Normal 10.9-14.2 [facility] Comment on above: Performed By: #### 1 8862997, 8200254, 2648162, 35936160, 3834500, 96142363, 13609269, 5637070, 3264450 #### [facility] [address] [place] [address] Hematocrit (Bld) [Volume fraction] 37.4 % Normal 34.0-46.0 [facility] Comment on above: Performed By: #### 1 9769365, 8169902, 6509360, 32695653, 3208400, 99443330, 69548682, 1121962, 6391428 #### [facility] [address] [place] [address] Hemoglobin (Bld) [Mass/Vol] 12.5 g/dL Normal 12.0-16.0 [facility] Comment on above: Performed By: #### 1 2197363, 3268109, 9150486, 28482146, 9654737, 93264859, 17105988, 8475798, 3257586 #### [facility] [address] [place] [address] MCH (RBC) [Entitic mass] 30.1 pg Normal 27.0-34.0 [facility] Comment on above: Performed By: #### 1 7476054, 3732241, 5588669, 94798343, 3130513, 28885589, 68516676, 6161918, 1059367 #### [facility] [address] [id number] MCHC (RBC) [Mass/Vol] 33.6 g/dL Normal 31.4-36.0 [facility] Comment on above: Performed By: #### 1 8250953, 4328309, 7782804, 67697514, 0128192, 19798088, 01557800, 5775191, 2553168 #### [facility] [address] [place] [address] MCV (RBC) [Entitic vol] 89.7 fL Normal 80.0-100.0 [facility] Comment on above: Performed By: #### 1 3899448, 7437151, 7607981, 36753169, 0760048, 32473656, 15828042, 4272465, 1387737 #### [facility] [address] [place] [address] Platelet mean volume (Bld) [Entitic vol] 9.2 fL Normal 6.4-10.8 [facility] Comment on above: Performed By: #### 1 9384785, 0717743, 4203457, 87971913, 9308198, 09837887, 95191070, 2491280, 8258265 #### [facility] [address] [place] [address] Platelets (Bld) [#/Vol] 146.0 E9/L Low 150.0-500.0 [facility] Comment on above: Performed By: #### 1 4161990, 6840006, 2470895, 65848027, 6894611, 00249339, 07299242, 0345414, 1293607 #### [facility] [address] [place] [address] RBC (Bld) [#/Vol] 4.2 E12/L Low 4.3-5.9 [facility] Comment on above: Performed By: #### 1 7356811, 7194434, 7488015, 38015543, 4162269, 41362867, 67505292, 2692931, 7833671 #### [facility] [address] [place] [address] WBC corrected for nucl RBC Auto (Bld) [#/Vol] 15.8 E9/L High 4.0-11.0 [facility] Comment on above: Result Comment: Slid e reviewed by 10/18/2022 15:09:43 EDT. Performed By: #### 1 3946872, 6746999, 3016409, 95652843, 7461724, 49224743, 30881196, 8493646, 3275479 #### [facility] [address] [place] [address] CHEMISTRYOrdered By: SYSTEM SYSTEM on 10-18-2022 Ethanol [...] s Normal 9.4 - 1 2.5 second(s) FT Auto Coag Consent for Treatmenton 10-08 Consent for Treatment [id number] #1.00CD:127 Normal [facility] ED Note-Physicianon 10-19-19 ED Note-Physician Basic Information [...] evaluated: Not applicable Discussed with: Dr. Mortensen, ASSISTANT WOMEN'[employer]ACH. Dr. Butler, cardiology. Dr. Calhoun, Hospitalist. Treatment [...] tachycardia. I will call and discuss with ASSISTANT WOMEN'S ROWING COACH and cardiology. (more content not included)... Normal [facility] Comment on above: Result Comment: Elec tronically Signed By: Favian Ahumada DO\.br\Date and Time Signed: 10/18/22 19:58 EDT Ethanolon 10-18-2022 Ethanol [Mass/Vol] mg/dL Normal <=7 [facility] Comment on above: Performed By: #### 2 463277 ####[facility] [address] [place] [address] HEMATOLOGYOrdered By: SYSTEM SYSTEM on 10-18-2022 Basophils/100 [...] 15.8 E9/L High 4.0 - 11.0 E9/L [facility] HemeAutoSS Comment on above: Result Comment: Slid e reviewed by HUGO 10/18/2022 15:09:43 EDT. Laboratory - Microbiology an d Antimicrobial susceptibilityOrdered By: Nyla Rajan on 10-18-2022 Bacteria identified Cx Nom (U) 100 cfu/ml Mixed skin contaminants [facility] Monitor Recordon 10-18-2022 Monitor Record [id number]#1.00CD:127 Normal [facility] Monitor Record [id number]#1.00CD:127 Normal [facility] Monitor Record [id number]#1.00CD:127 Normal [facility] PT & PTTon 10-18-2022 aPTT Coag (PPP) [Time] 25.8 second(s) Normal 25.1-36.5 [facility] Comment on above: Result Comment: Para meter [...] the same coagulation reagent and instrumentation as [facility]. Currently there are no coagulation studies available worldwide for children to 14 days, and no normal ranges. Heparin therapeutic range (represented by Anti-Factor Xa activity of 0.2 - 0.4 U/mL) corresponds to PTT of 56.6 - 109.0 sec. Performed By: #### 1 5817656, 6587737, 7930535, 88023153, 0827019, 17112582, 43474452, 5662607, 2396425 #### [facility] [address] [place] [address] INR Coag (PPP) [Relative time] 1.0 {INR} Invalid Interpretation Code [facility] Comment on above: Result Comment: INR results are specifically intended to assess patients stabilized on long-term Anticoagulation therapy suggested INR?s ?Less Intensive Anticoagulation? 2.0 ? 3.0 Conventional Range 3.0 ? 4.5 Performed By: #### 1 5821365, 4588722, 8960711, 94374474, 5885995, 93725986, 86310940, 4319606, 3853381 #### [facility] [address] [place] [address] PT Coag (PPP) [Time] 10.8 second(s) Normal 9.4-12.5 [facility] Comment on above: Result Comment: 15 d [...] the same coagulation reagent and instrumentation as [facility]. Currently there are no coagulation studies available worldwide for children to 14 days, and no normal ranges. Performed By: #### 1 9557662, 8419792, 0534762, 85213615, 0749364, 00769837, 27516780, 1653682, 0057967 #### [facility] [address] [place] [address] Progress Note-Nurseon 2022 Progress Note-Nurse Patient: SIDNEY CANDELARIO Age: 22 years Sex: Female : 2000 Associated Diagnoses: None Author: Mell GRAFF, Meghna 25 week GI P0 in ER. heart tracing times 10 minutes obtained. Baseline 150bpm, moderate variability with accelerations increasing to 160. Audible movement. Pt states she can feel movement. Normal [facility] Salicylateon 10-18-2022 Salicylates [Mass/Vol] mg/dL Low 6-29 [facility] Comment on above: Performed By: #### 1 8900594, 9212395, 2022266, 78343816, 2233913, 90351759, 22131493, 6019330, 3803674 ####[facility] [address] [place] [address] TSH With T4fr Reflexon 10-18 TSH Qn 1.50 m[IU]/L Normal 0.34-5.60 [facility] Comment on above: Performed By: #### 1 8780266, 6819269, 5823628, 03670335, 8856176, 97377424, 40267057, 2873595, 7493574 ####[facility] [address] [place] [address] Troponinon 10-18-2022 Troponin I.cardiac [Mass/Vol] 47.10 pg/mL Abnormal 10.10-27.10 [facility] Comment on above: Result Comment: Crit ical [...] Sensitivity Troponin I Instructions For Use, [place], January 2018) Performed By: #### 2 525769 #### [facility] [address] [place] [address] Troponin 0 Hr.on 10-18-2022 Troponin I.cardiac [Mass/Vol] 42.20 pg/mL Abnormal 10.10-27.10 [facility] Comment on above: Result Comment: Crit ical [...] High Sensitivity Troponin I Instructions For Use, [place], January 2018) Performed By: #### 1 7833023, 7352786, 4079556, 28382012, 9273003, 02900544, 25352127, 8929145, 9834334 ####[facility] [address] [place] [address] Troponin 3 Hr.on 10-18-2022 Troponin I.cardiac [Mass/Vol] 49.60 pg/mL Abnormal 10.10-27.10 [facility] Comment on above: Result Comment: Crit ical [...] conjunction with clinical conditions of myocardial infarction. (DNAnexus High Sensitivity Troponin I Instructions For Use, [place], January 2018) Performed By: #### 1 9758871 #### [facility] [address] [place] [address] Troponin 6 Hr.on 10-18-2022 Troponin I.cardiac [Mass/Vol] 53.00 pg/mL Abnormal 10.10-27.10 [facility] Comment on above: Result Comment: Crit ical [...] [place], January 2018) Performed By: #### 1 0311343 #### [facility] [address] [place] [address] U Drug Screenon 10-18-2022 Amphetamines Screen method >1000 ng/mL Ql (U) Negative Normal Negative [facility] Comment on above: Result Comment: Nega tive Cutoff: <1000 ng/mL Performed By: #### 2 678335, 4130747, 93495759 ####[facility] [address] [place] [address] Barbiturates Screen Ql (U) Negative Normal Negative [facility] Comment on above: Result Comment: Nega tive Cutoff: <200 ng/mL Performed By: #### 2 655100, 5874741, 35678327 ####[facility] [address] [place] [address] Benzodiazepines Ql (U) Negative Normal Negative [facility] Comment on above: Result Comment: Nega tive Cutoff: <200 ng/mL Performed By: #### 2 576367, 7330052, 38870909 ####[address] [place] [address] Cocaine Ql (U) Negative Normal Negative [facility] Comment on above: Result Comment: Nega tive Cutoff: <300 ng/mL Performed By: #### 2 051042, 0893023, 62077522 ####[address] [place] [address] Opiates Screen Ql (U) Negative Normal Negative [facility] Comment on above: Result Comment: Nega tive Cutoff: <300 ng/mL Performed By: #### 2 439713, 0816405, 57450989 ####[facility] [address] [place] [address] Phencyclidine Screen method >25 ng/mL Ql (U) Negative Normal Negative [facility] Comment on above: Result Comment: Nega tive Cutoff: <25 ng/mL These drug screen results are to be used for medical (i.e., treatment) purposes only. Unconfirmed drug screening results must not be used for non-medical purposes (e.g., employment testing, legal testing). Performed By: #### 2 339184, 5260785, 75498882 ####[address] [place] [address] Tetrahydrocannabinol Screen method >50 ng/mL Ql (U) Negative Normal Negative [facility] Comment on above: Result Comment: Nega tive Cutoff: <50 ng/mL Performed By: #### 2 858221, 3931043, 45277910 ####[address] [address] UA With Cult Reflexon 2022 Bacteria LM Ql (Urine sed) 2+ /HPF Abnormal Trace [facility] Comment on above: Performed By: #### 2 268895, 8592247, 98554906 ####[address] [address] Bilirubin Ql (U) Negative Normal Negative [facility] Comment on above: Performed By: #### 2 098005, 7287574, 53404785 ####[address] [address] Clarity (U) SL CLOUDY Abnormal Clear [facility] Comment on above: Performed By: #### 2 182968, 1490203, 29936170 ####[address] [address] Color (U) YELLOW Normal Yellow [facility] Comment on above: Performed By: #### 2 790344, 9070673, 05166221 ####[address] [place] [address] Epithelial cells.squamous LM.HPF (Urine sed) [#/Area] /[HPF] Normal 0-[address] [facility] Comment on above: Performed By: #### 2 396050, 8488095, 40274597 ####[address] [address] Glucose Test strip (U) [Mass/Vol] Negative Normal Negative [facility] Comment on above: Performed By: #### 2 796061, 3520899, 11857049 ####[facility] [address] [place] [address] Hemoglobin Ql (U) Negative Normal Negative [facility] Comment on above: Performed By: #### 2 877295, 8826611, 78877626 ####[address] [address] Ketones (U) [Mass/Vol] Negative Normal Negative [facility] Comment on above: Performed By: #### 2 330741, 8405749, 46017419 ####[address] [address] [place].plasma/[place].R BC (Bld) [Mass ratio] 4-20 Normal 0-3 [facility] Comment on above: Performed By: #### 2 942993, 9673605, 85590963 ####[address] [address] Nitrite Ql (U) Negative Normal Negative [facility] Comment on above: Performed By: #### 2 215260, 4583659, 39828905 ####[address] [address] pH (U) 6.5 [pH] Invalid Interpretation Code 5.0-9.0 [facility] Comment on above: Performed By: #### 2 758970, 4615286, 20265400 ####[facility] [address] [place] [address] Protein (U) [Mass/Vol] Negative Normal Negative [facility] Comment on above: Performed By: #### 2 627336, 9267322, 52572066 ####[address] [place] [address] Specific gravity (U) [Rel density] 1.015 Invalid Interpretation Code 1.005-1.030 [facility] Comment on above: Performed By: #### 2 448119, 9487408, 46808230 ####[facility] [address] [place] [address] Type of Urine collection method Clean Catch Normal [facility] Comment on above: Performed By: #### 2 287981, 3608915, 19328723 ####[facility] [address] [place] [address] Urobilinogen Qn (U) 0.2 {Yg'U}/dL Normal 0.0-1.0 [facility] Comment on above: Performed By: #### 2 570645, 8732812, 44273933 ####[facility] [address] [place] [address] WBC Auto Ql (U) 1+ Abnormal Negative [facility] Comment on above: Performed By: #### 2 056617, 7030529, 98599615 ####[facility] [address] [place] [address] WBC LM.HPF (Urine sed) [#/Area] 16-25 Abnormal 0-5 [facility] Comment on above: Performed By: #### 2 065967, 9389300, 20569136 ####[facility] [address] [place], [place] [address] URINALYSISOrdered By: Citlali Rogers on 10-18-2022 Bacteria LM Ql (Urine sed) 2+ /HPF Invalid Interpretation Code Trace/HPF FT UA Auto SS Bilirubin Ql (U) Negative (10/18/22 1:37 PM) Normal Negative FT UA Auto SS Clarity (U) Slightly Cloudy *ABN* (10/18/22 1:37 PM) Invalid Interpretation Code Clear FT UA Auto SS Color (U) Yellow (10/18/22 1:37 PM) Normal Yellow FT UA Auto SS Epithelial cells.squamous LM.HPF (Urine sed) [#/Area] /[HPF] Normal 0-2/HPF FT UA Aut o SS Glucose Test strip (U) [Mass/Vol] Negative (10/18/22 1:37 PM) Normal Negative [facility] UA Auto SS Hemoglobin Ql (U) Negative (10/18/22 1:37 PM) Normal Negative [facility] UA Auto SS Ketones (U) [Mass/Vol] Negative (10/18/22 1:37 PM) Normal Negative [facility] UA Auto SS [place].plasma/[place].R BC (Bld) [Mass ratio] 4-20 /HPF Normal [...] [facility] UA Auto SS Urobilinogen Qn (U) 0.7508212 {Yg'U}/dL Normal 0.0 - 1.0 EU/dL [facility] [...] Tello MD, V. Transcribed by: FELI Technologist: DPR Technical Comments Radiation Dose: Ka,r in mGy = na DAP = na Normal [facility] eGFRon 10-18-2022 GFR/1.73 sq M.predicted among non-blacks MDRD (S/P/Bld) [Vol rate/Area] 138 mL/min/1.73 m2 Normal >=59 [facility] Comment on above: Order Comment: Order added by Discern Expert. Result Comment: Residential Construction Instructor sydnie kidney disease could be indicated at eGFR's of less than 60 mL/min/1.73m2. Kidney failure is indicated at less than 15 mL/min/1.73m2. Performed By: #### 1 2791354, 0448906, 0004661, 01954275, 0569602, 20048163, 41977326, 4226704, 8468679 #### [facility] [address] [place] [address] US PREG ANATOMY SINGLEon US PREG ANATOMY [...] CAMELIA MENDEZ Date: 2022-10-08 15:26 Normal [facility] CHLAMYDIA/GONOCOCCUS TETO (SW AB/URINE/PAPon 08-28-2022 Chlamydia trachomatis, TETO Negative Normal Negative [facility] Comment on above: Performed By: #### C T/NGNA #### [facility] [address] [address] [address] Maribell Perea Neisseria gonorrhoeae, TETO Negative Normal Negative [facility] Comment on above: Performed By: #### C T/NGNA #### [facility] [address] [place] [address] Dr. Maribell Perea VAGINITIS/VAGINOSIS DNA PROB Romeo 08-25-2022 Beatrice species Negative Normal Negative [facility] Comment on above: Performed By: #### V AGINT ####[facility] [address] [address]Dr. Maribell Perea Gardnerella vaginalis Negative Normal Negative [facility] Comment on above: Performed By: #### V AGINT ####[facility] [address] [address]Dr. Maribell Perea Trichomonas vaginalis Negative Normal Negative [facility] Comment on above: Performed By: #### V AGINT ####[facility] [address] [address]Dr. Maribell Perea HEP B SURFACE ANTIGEN SCREEN on 07-25-2022 HBsAg Screen Negative Normal Negative [facility] Comment on above: Performed By: #### H BSANS #### [facility] [address] [place] [address] Dr. Maribell Perea HEPATITIS C VIRUS AB W/ REFL EX QUANTon 07-25-2022 HCV AB Non-Reactive Normal Non Reactive [facility] Comment on above: Performed By: #### H CVPCRR #### [facility] [address] [place] [address] Dr. Maribell Perea Interpretation: Comment Normal [facility] Comment on above: Result Comment: Not infected with HCV unless early or acute infection is suspected (which may be delayed in an immunocompromised individual), or other evidence exists to indicate HCV infection. Performed By: #### H CVPCRR #### [facility] [address] [place] [address] Dr. Maribell Perea HIV 1 AND 2 WITH REFLEXon HIV Screen 4th Generation wRfx Non-Reactive Normal Non Reactive [facility] Comment on above: Result Comment: HIV Negative HIV-1/HIV-2 antibodies and HIV-1 p24 antigen were NOT detected. There is no laboratory evidence of HIV infection. Performed By: #### H IV12 #### [facility] [address] [place] [address] Dr. Maribell Perea RPR QUANTon 07-25-2022 Rapid Plasma Reagin, Quant Non-Reactive Normal NonRea<1:1 [facility] Comment on [...] utilized, such as Treponema pallidum (Syphilis) Screening [place] (051515) or Rapid Plasma Reagin (RPR) Test With Reflex to Quantitative RPR and Confirmatory Treponema pallidum Antibodies (740073). Performed By: #### R PRQ #### [facility] [address] [place] [address] Dr. Maribell Perea RUBELLA AB IGGon 07-25-2022 Rubella Antibodies, IgG <0.90 Critically low Immune > 0.99 [facility] Comment on above: Result Comment: Non- immune <0.90 Equivocal 0.90 - 0.99 Immune >0.99 Performed By: #### R UBIGG #### [facility] [address] [place] [address] Dr. Maribell Perea CULTURE URINEon 07-23-2022 CULTURE URINE Culture Observations: NO GROWTH. Normal [facility] Comment on above: Performed By: #### U RCX ####[facility] [id number] Maribell Perea GLYCOHEMOGLOBIN A1Con 2022 ADA RECOMMENDATION SEE BELOW Normal [facility] Comment on above: Result Comment: ADA RECOMMENDED LIMIT 4.0 - 6.0 ADA THERAPEUTIC TARGET < 7.0 ACTION SUGGESTED > 7.0 Performed By: #### A 1C #### [facility] [address] [address] [address] Maribell Perea Glucose [Mass/Vol] 97 mg/dL Normal [facility] Comment on above: Performed By: #### A 1C #### [facility] [address] [address] [address] Maribell Perea HbA1c (Bld) [Mass fraction] 5.0 % Normal 4.5-6.2 [facility] Comment on above: Performed By: #### A 1C #### [facility] [address] [address] [address] Maribell Perea BEULAH BOX TEST PT SEND OUTo n 07-23-2022 SENT TO REF LAB 07/23/2022 Normal [facility] Comment on above: Performed By: #### N BOX #### [facility] [address] [address] [address] Maribell Perea TYPE AND SCREENon 07-23-2022 TYPE AND SCREEN Negative Normal [facility] Comment on above: Performed By: #### T NS ####[facility] [address] [place] [id number]. Maribell Perea US PREG TVon 06-28-2022 US [...] by: CAMELIA MENDEZ Date: 2022-06-28 09:17 Normal [facility] Vital Signs Date Time Vital Sign Value Performing Clinician Facility 03-23-2024 14:30-0400 Body mass index (BMI) [Ratio] 22.85 kg/m2 [employer] Work Phone: [facility] 03-23-2024 14:30-0400 Body weight 53.07 kg Irving Delores DO Work Phone: [facility] 03-23-2024 14:30-0400 Diastolic blood pressure 70 mm[Hg] Irving Delores [employer] Work Phone: [facility] 03-23-2024 14:30-0400 Systolic blood pressure 106 mm[Hg] [employer] Work Phone: [facility] 03-19-2024 15:39-0400 Body mass index (BMI) [Ratio] 22.26 kg/m2 Luana VALDOVINOS Work Phone: [facility] 03-19-2024 15:39-0400 Body weight 51.71 kg Luana VALDOVINOS Work Phone: [facility] 03-19-2024 15:39-0400 Diastolic blood pressure 72 mm[Hg] Luana VALDOVINOS Work Phone: [facility] 03-19-2024 15:39-0400 Systolic blood pressure 110 mm[Hg] Luana VALDOVINOS Work Phone: [facility] 06-18-2023 15:11-0500 Blood Pressure Location [facility] 06-18-2023 15:11-0500 Body temperature 97.88 [degF] [facility] 06-18-2023 15:11-0500 Diastolic blood pressure 76 mm[Hg] [facility] 06-18-2023 15:11-0500 Heart rate 90 /min [facility] 06-18-2023 15:11-0500 SaO2% (BldA) [Mass fraction] 98 % [facility] 06-18-2023 15:11-0500 Systolic blood pressure 116 mm[Hg] [facility] 10-19-2022 13:00-0400 Hourly Rounding Jona Cristin [facility] 10-19-2022 13:00-0400 Promise to Return Jona Cristin [facility] 10-19-2022 12:23-0400 Heart rate 101 /min Jona Cristin [facility] 10-19-2022 12:23-0400 SaO2% (BldA) [Mass fraction] 98 % Jona Cristin [facility] 10-19-2022 12:23-0400 Body temperature 98.06 [degF] Jona Cristin [facility] 10-19-2022 12:23-0400 Diastolic blood pressure 65 mm[Hg] Jona Cristin [facility] 10-19-2022 12:23-0400 Mean blood pressure 77 mm[Hg] Jona Cristin [facility] 10-19-2022 12:23-0400 Systolic blood pressure 102 mm[Hg] Jona Cristin [facility] 10-19-2022 12:15-0400 Hourly Rounding Jona Cristin [facility] 10-19-2022 12:15-0400 Promise to Return Jona Cristin [facility] 10-19-2022 11:21-0400 Hourly Rounding Joan Cristin [facility] 10-19-2022 11:21-0400 Promise to Return Jona Cristin [facility] 10-19-2022 08:24-0400 Heart rate 103 /min Jona Cristin [facility] 10-19-2022 08:24-0400 SaO2% (BldA) [Mass fraction] 98 % Jona Cristin [facility] 10-19-2022 08:24-0400 Diastolic blood pressure 61 mm[Hg] Jona Cristin [facility] 10-19-2022 08:24-0400 Mean blood pressure 72 mm[Hg] Jona Cristin [facility] 10-19-2022 08:24-0400 Systolic blood pressure 93 mm[Hg] Jona Cristin [facility] 10-19-2022 08:23-0400 Body temperature 98.24 [degF] Jona Cristin [facility] 10-19-2022 05:12-0400 Heart rate 95 /min Jona Cristin [facility] 10-19-2022 05:12-0400 SaO2% (BldA) [Mass fraction] 98 % Jona Cristin [facility] 10-19-2022 05:12-0400 Diastolic blood pressure 41 mm[Hg] Jona Cristin [facility] 10-19-2022 05:12-0400 Mean blood pressure 56 mm[Hg] Jona Cristin [facility] 10-19-2022 05:12-0400 Systolic blood pressure 86 mm[Hg] Jona Cristin [facility] 10-19-2022 05:12-0400 Body temperature 98.6 [degF] Jona Cristin [facility] 10-18-2022 22:59-0400 Respiratory rate 20 /min Jona Cristin [facility] 10-18-2022 21:45-0400 Mean blood pressure 84 mm[Hg] Jona Cristin [facility] 10-18-2022 21:45-0400 Respiratory rate 15 /min Jona Cristin [facility] 10-18-2022 21:00-0400 Mean blood pressure 82 mm[Hg] Jona Cristin [facility] 10-18-2022 21:00-0400 Respiratory rate 17 /min Jona Cristin [facility] 10-18-2022 20:00-0400 Mean blood pressure 89 mm[Hg] Jona Cristin [facility] 10-18-2022 14:08-0400 gluc 93 mg/dL Jona Cristin [facility] 10-18-2022 14:08-0400 gluc Jona Cristin [facility] 10-18-2022 14:08-0400 Respiratory rate 15 /min Jona Cristin [facility] 10-18-2022 13:30-0400 Heart rate 108 /min Jona Cristin [facility] 10-18-2022 13:30-0400 Respiratory rate 16 /min Jona Cristin [facility] Encounters Encounter Date Encounter Type Care Provider Facility Start: 03-23-2024 End: 03-23-2024 ambulatory IRVING DELORES Not Available Start: 03-23-2024 End: 03-23-2024 Bamboo flowsheet Irving Delores DO Work Phone: [facility] Start: 03-23-2024 End: 03-23-2024 Bamboo flowsheet Irving Delores DO Work Phone: [facility] Start: 03-23-2024 End: 03-23-2024 flow sheet Irving Delores DO Work Phone: [facility] Comment on above: Third trimester preg ida; SGA (small for gestational age); 37 weeks gestation of Start: 03-19-2024 End: 03-19-2024 ambulatory LUANA DARCI Not Available Start: 03-19-2024 End: 03-19-2024 flow sheet Luana VALDOVINOS Work Phone: [facility] Comment on above: Third trimester preg ida; 36 weeks gestation of Start: 03-19-2024 End: 03-19-2024 Bamboo flowsheet Luana VALDOVINOS Work Phone: [facility] Start: 03-19-2024 End: 03-19-2024 Bamboo flowsheet Luana VALDOVINOS Work Phone: [facility] Start: 03-05-2024 End: 03-05-2024 ambulatory IRVING DELORES Not Available Start: 02-20-2024 End: 02-20-2024 ambulatory LUANA DARCI Not Available Start: 02-05-2024 End: 02-05-2024 ambulatory IRVING DELORES Not Available Start: 01-22-2024 End: 01-22-2024 ambulatory LUANA DARCI Not Available Start: 12-25-2023 End: 12-25-2023 ambulatory IRVING DELORES Not Available Start: 11-27-2023 End: 11-27-2023 ambulatory IRVING DELORES Not Available Start: 10-29-2023 End: 10-29-2023 ambulatory LUANA DARCI Not Available Start: 10-01-2023 End: 10-01-2023 ambulatory IRVING DELORES Not Available Start: 09-05-2023 End: 09-05-2023 ambulatory IRVING DELORES Not Available Start: 06-18-2023 End: 06-18-2023 [facility] Start: 06-18-2023 End: 06-18-2023 Patient encounter procedure Mike Fuentes [facility] Start: 10-22-2022 End: 10-22-2022 ambulatory Roslyn Valdes Facility::[id number] Start: 10-18-2022 End: 10-19-2022 ambulatory Sahil BUTLER Facility:[facility] Start: 10-18-2022 End: 10-19-2022 Observation Jona Amaral [facility] Start: 10-06-2022 End: 10-07-2022 ambulatory LUANA BEJARANO . Facility: Start: 08-23-2022 End: 08-23-2022 ambulatory LUANA BEJARANO . Facility: Start: 07-23-2022 End: 07-24-[address] IRVING LIMON . Facility:[facility] Start: 06-28-2022 End: 06-29-[address] IRVING LIMON . Facility: Start: 06-06-2022 ambulatory Esperanza Dong y:[facility] Procedures Date Procedure Procedure Detail Performing Clinician Start: 03-19-2024 Urnls dip stick/tabl et rgnt non-auto w/o micrscp Luana Bejarano PA Work Phone: Plan of Treatment Date Care Activity Detail Author Start: 03-30-2024 End: 03-30-2024 Patient encounter procedure 03/30/2024 8:40 AM EDT Routine [facility] [address] [place] [address] Irving Limon DO [address], [place] [id number] [facility] Start: 03-23-2024 End: 03-23-2025 US biophysical profile w non stress test US biophysical profile w non stress test Imaging Routine Third trimester SGA (small for gestational age) Expected: 03/23/2024 (Approximate), Expires: 03/23/2025 [facility] Work Phone: Comment on above: Expected: 03/23/2024 (Approximate), Expires: 03/23/2025 Start: 03-19-2024 End: 03-19-2025 Strep B DNA probe, amplification Strep B DNA probe, amplification Lab Routine Third trimester Expected: 03/19/2024 (Approximate), Expires: 03/19/2025 [facility] Work Phone: Comment on above: Expected: 03/19/2024 (Approximate), Expires: 03/19/2025 Immunizations Immunization Date Immunization Notes Care Provider Ekaterina wilson 02-09-2021 meningococcal B vacc ine, recombinant, OMV, adjuvanted [employer] [facility] 02-09-2021 meningococcal oligosaccharide (groups A, C, Y and W-135) diphtheria toxoid conjugate vaccine (MCV4O) [employer] [facility] 02-09-2021 hepatitis A vaccine, pediatric/adolescent dosage, 2 dose schedule [employer] [facility] 07-14-2018 hepatitis A vaccine, adult dosage [employer] [facility] 07-14-2018 HPV, unspecified formulation [employer] [facility] 07-14-2018 meningococcal B vacc ine, fully recombinant [employer] [facility] 12-26-2015 HPV, unspecified formulation [employer] [facility] 12-26-2015 meningococcal ACWY vaccine, unspecified formulation [employer] [facility] 12-26-2015 tetanus toxoid, unspecified formulation [employer] [facility] 04-28-2009 influenza virus vacc ine, unspecified formulation [employer] [facility] 04-28-2008 influenza virus vacc ine, unspecified formulation [employer] [facility] 02-26-2008 diphtheria, tetanus toxoids and acellular pertussis vaccine [employer] [facility] 02-26-2008 measles, mumps and rubella virus vaccine [employer] [facility] 02-26-2008 poliovirus vaccine, unspecified formulation [employer] [facility] 02-26-2008 varicella virus vaccine Vincent [employer] [id number] [facility] 10-27-2003 diphtheria, tetanus toxoids and acellular pertussis vaccine [employer] [facility] 10-27-2003 haemophilus influenz ae type b vaccine, PRP-OMP conjugate [employer] [facility] 10-27-2003 measles, mumps and rubella virus vaccine [employer] [facility] 10-27-2003 varicella virus vaccine Vincent nder [id number] [facility] 04-28-2003 diphtheria, tetanus toxoids and acellular pertussis vaccine [employer] [facility] 04-28-2003 haemophilus influenz ae type b vaccine, PRP-OMP conjugate [employer] [facility] 04-28-2003 hepatitis B vaccine, pediatric or pediatric/adolescent dosage [employer] [facility] 04-28-2003 pneumococcal conjuga te vaccine, 13 valent Jona Cristin [facility] 04-28-2003 poliovirus vaccine, unspecified formulation Jona Cristin [facility] 2002 diphtheria, tetanus toxoids and acellular pertussis vaccine Jona Cristin [facility] 2002 haemophilus influenz ae type b vaccine, PRP-OMP conjugate [employer] [facility] 2002 pneumococcal conjuga te vaccine, 13 valent Jona Cristin [facility] 2002 poliovirus vaccine, unspecified formulation Jona [id number] [facility] 2002 diphtheria, tetanus toxoids and acellular pertussis vaccine Jona Cristin [facility] 2002 haemophilus influenz ae type b vaccine, PRP-OMP conjugate [employer] [facility] 2002 hepatitis B vaccine, pediatric or pediatric/adolescent dosage Jona Cristin [facility] 2002 pneumococcal conjuga te vaccine, 13 valent Jona Cristin [facility] 2002 poliovirus vaccine, unspecified formulation [employer] [facility] 2002 hepatitis B vaccine, pediatric or pediatric/adolescent dosage [employer] [facility] Payers Date Payer Category Payer Blue Cross Blue Shield BCBS Memb er Subscriber Plan / Payer (Effective 2023-Present) Name: Sidney Candelario Relation to Subscriber: Spouse Name: CODY CANDELARIO Date of : 2002 (Home) Address: [address] [place] [address] Payer ID: Not on file Type: Not on file Address: [address] [place] [id number] 2023 Unknown BCBS BCBS xxxxxx [id number] 2023-Present [phone] [address] [place] [address] [id number] 2023 Unknown [id number] 2023 Private Health Insurance [id number] 2021 Private Health Insurance 2000 Unknown [id number] 93 2002 Unknown [id number] 2.16.840.1.319544.3.579.2.5 93 2002 Unknown [id number] 2.16.840.1.656720.3.579.2.5 93 2002 Unknown [id number] 2.16.840.1.628480.3.579.2.5 93 2002 Unknown [id number] 2.16.840.1.966207.3.579.2.7 27 2002 Unknown [id number] 2.16.840.1.876658.3.579.2.7 27 2002 Unknown [id number] 2.16.840.1.789376.3.579.2.1 259 2002 Unknown [id number] 2.16.840.1.876935.3.579.2.1 259 2002 Unknown [id number] 2.16.840.1.932197.3.579.2.1 259 2002 Unknown [id number] 2.16.840.1.951333.3.579.2.1 259 2002 Unknown [id number] 2.16.840.1.621152.3.579.2.1 259 2002 Unknown [id number] 2.16.840.1.256282.3.579.2.1 259 2002 Unknown [id number] 2.16.840.1.257440.3.579.2.1 259 2002 Unknown [id number] 2.16.840.1.832202.3.579.2.1 259 2002 Unknown [id number] 2.16.840.1.741028.3.579.2.1 259 2002 Unknown [id number] 2.16.840.1.767250.3.579.2.1 259 2002 Unknown [id number] 2.16.840.1.832098.3.579.2.1 259 1959 Self-pay 1959 Unknown [id number] Unknown [id number] 2.16.840.1.194572.3.579.2.5 93 Social History Date Type Detail Facility Tobacco Never smoker [facility] Comment on above: denies Tobacco smoking status No Smokin g Status Entered [facility] Start: 09-05-2023 Sex Assigned At Female F [facility] Start: 06-18-2023 End: 10-29-2023 Tobacco smoking status Never smoked tobacco (finding) [facility] Comment on above: denies Tobacco smoking status Never [facility] Comment on above: denies Start: 10-29-2023 Tobacco use and exposure Smokeless tobacco non-user [facility] Start: 03-05-2024 End: 03-23-2024 Alcoholic beverage intake Lifetime non-drinker (finding) [facility] Start: 09-05-2023 History of Social function [facility] Start: 10-29-2023 Tobacco Comment N/A [facility] Start: 11-15-2022 Alcohol Comment caffeine intak e: 1-2 cups per day [facility] Start: 07-23-2023 [facility] Start: 2000 Sex assigned at Female [facility] Start: 10-29-2022 Gender identity Identifies as female gender (finding) [facility] Goals Date Patient Goal Desired Activity /State Personal health goal Functional Status Date Assessment Result Facility 06-18-2023 Functional Status N/A [facility] 10-18-2022 Functional Status N/A [facility] 10-18-2022 Functional Status [facility] Clinical Notes 10-18-2022 to 03-23-2024 Nicole Ortiz LPN - 03/23/2024 2:00 PM ARUNA Womack - 03/19/2024 3:10 PM EDT Note Date & Type Note Facility 03-23-2024 History of Present illness Narrative Reason for Appointment: Patient ID: Sidney Candelario is a 23 y.o. female who presents for Routine Visit Patient presents today for Return OB appointment. [...] No family history on file. SURGICAL HISTORY History reviewed. No pertinent surgical history. REVIEW OF SYSTEMS Review of Systems: Review of Systems OBJECTIVE Objective: OBGyn Exam Vitals: Estimated body mass index is 22.85 kg/m as calculated from the following: Height as of 10/01/22: 5'. Weight as of this encounter: 117 lb. BP: 106/70 Patient's last menstrual period was 06/29/2023. ASSESSMENT & PLAN ICD-10-CM 1. Third trimester Z34.93 US biophysical profile w non stress test 2. SGA (small for gestational age) P05.10 US biophysical profile w non stress test 3. 37 weeks gestation of Z3A.37 Patient presents today for a routine obstetrics appointment. Patient is currently 36w6d with a Estimated Date of Delivery: 04/14/24. Patient to start NST/BPP for SGA. Patient to return to clinic in 1 week for routine OB appointment. Documented by Nicole Ortiz LPN on behalf of: Irving Limon DO documented in this encounter [facility] 03-19-2024 History of Present illness Narrative Reason [...] of: ARUNA Singh documented in this encounter [facility] 06-18-2023 Hospital Discharge instructions Patient Education 06/18/2023 16:34:28 Pharyngitis, Rxen-qa-Ftgg Pharyngitis Pharyngitis is a sore throat (pharynx). [...] Follow these instructions at home: Medicines Take rwcy-pep-zzerrpf and prescription medicines only as told by [...] and water are not available, use hand sole edge inker machine. Do not touch your eyes, nose, or [...] provider. Document Revised: 08/23/2021 Document Reviewed: 08/23/2021 [employer] Patient Education 2022 Pembe Panjur. 06/18/2023 16:34:25 Viral Illness, Adult Viral Illness, [...] Medicines to relieve symptoms. These can include mykl-joe-zllxdsj medicine for pain and fever, medicines for cough or congestion, and medicines to relieve diarrhea. Antiviral medicines. These medicines are available only for certain types of viruses. Some viral illnesses can be prevented with vaccinations. A common example is the flu shot. Follow these instructions at home: Medicines Take objv-aeb-xgypsng and prescription medicines only as told by [...] and water are not available, use hand sole edge inker machine. Avoid touching your nose, eyes, and mouth, [...] provider. Document Revised: 10/10/2020 Document Reviewed: 04/05/2020 [employer] Patient Education 2022 Pembe Panjur. [facility] 06-18-2023 Evaluation + Plan note Diagnostic Tests PendingGroup A Strep by PCR 06/18/23 [facility] 01-23-2023 Note Procedure History None. Hospital [...] drug abuse. ED physician discussed case with laborer stores Dr. Butler and ASSIST[employer] Dr. Mortensen. Telemetry monitoring and echocardiogram was [...] this is written under the wrong FIN [facility] Comment on above: Result Comment: Elec tronically [...] drug abuse. ED physician discussed case with laborer stores Dr. Butler and ASSIST[employer] WOM[employer] Dr. Mortensen. Telemetry monitoring and echocardiogram was [...] 78.2 % Lymph Auto - 12.3 % [place] Auto - 8.5 % Eos Auto - 0.6 % Basophil Auto - 0.4 % Neutro Absolute - 12.7 E9/L Lymph Absolute - 2.0 E9/L [place] Absolute - 1.4 E9/L Eos Absolute - [...] NEGATIVE1 UA Nitri (more content not included)... [facility] Comment on above: Result Comment: Elec tronically [...] care. Jono Mortensen M.D. lr Dictated: 10/19/2022 [id number] Transcribed: 10/19/2022 cc:Irving Limon D.O. [facility] Comment on above: Result Comment: Elec tronically Signed By: Festus MOSS, Jono Layne\.br\Date and Time Signed: 10/20/22 02:24 EDT 10-19-2022 Note Order received, corinne t reviewed. Attempted PT evaluation at 1424 on 10/19/22. Pt. is out of room and has been discharged from acute medical facility prior to completion of PT evaluation. No PT charges. [facility] 10-19-2022 Note Echocardiology Procedure Exam Date/Time Accession # Ordering Echo Transthoracic 10/19/2022 12:02 EDT [id number] Favian Ahumada DO Complete CPT code [id number] Reason for Exam (Echo Transthoracic Complete) Syncope Report [facility] [address] [place] [address] Adult Echocardiogram Report Name: SIDNEY CANDELARIO Study Date: 10/19/2022 11:33 AM BP: 93/61 mmHg Patient Location: [address] [place] [address] HR: 95 : 2000 Gender: Female Height: 60 in Age: 22 yrs Ethnicity: T Weight: 110 lb Reason For Study: Syncope BSA: 1.4 m2 History: No cardiac history per patient Ordering Physician: Kassidy Performed By: Ro Guerrero, [facility] Interpretation Summary Ejection Fraction = 65-70%. [...] Butler MD Transcribed by: MAYRA Technologist: ÁLVARO [facility] 10-19-2022 Evaluation + Plan note Extrac shahrzad [...] made to ensure accuracy, however, inadvertently computerized supervisor files mistakes may be present. Dr. Jona Bowser [facility] Hospitalist Ordered: acetaminophen, 650 mg = 2 [...] Weight Diagnostic Tests Pending * Cortisol 10/19/22 [facility]05-12-2023 NoteChief Complaint Dizziness Reason for Consultation [...] not improve, she sought medical attention at [facility] which showed [...] check Historical No q (more content not included)...[facility] Comment: Electronically Signed By: Isreal MOSS, Sahil Swartz.br\Date and Time Signed: 10/19/22 10:01 [id number] Hospital Discharge instructions Patient Education 10/19/2022 09:40:44 [...] Treatment for this condition includes: Antibiotic medicine. Zyqp-sou-cjpkirk medicines to treat discomfort. Drinking enough water [...] Follow these instructions at home: Medicines Take arug-utx-kxznfio and prescription medicines only as told by [...] provider. Document Revised: 01/06/2021 Document Reviewed: 01/06/2021 [employer] Patient Education 2022 Pembe Panjur. 10/19/2022 09:40:42 Near-Syncope, Fwqi-fl-Dgdf Near-Syncope Near-syncope is when you suddenly feel [...] Follow these instructions at home: Medicines Take wplj-ttp-ivbqiae and prescription medicines only as told by [...] provider. Document Revised: 10/05/2021 Document Reviewed: 10/05/2021 [employer] Patient Education 2022 Pembe Panjur. Follow Up Care 10/18/2022 13:28:40 With:Sahil Butler MD Address: [address] [place] [phone] When:2 weeks With:Roslyn Valdes MD, [facility] Address: [phone] When:2 to 4 days [facility]05-11-2023 NoteChief Complaint pt reports being 27 [...] drug abuse. ED physician discussed case with laborer stores Dr. Butler and ASSIST[employer] Dr. Mortensen. Telemetry monitoring and echocardiogram was [...] Lymph Auto: 11.2 % Low (10/18/22 14:39:00) [place] Auto: 8.3 % (10/18/22 14:39:00) Eos Auto: 0.5 % (10/18/22 14:39:00) Basophil Auto: 0.6 % (10/18/22 14:39:00) Neutro Absolute: 12.5 E9/L High (10/18/22 14:39:00) Lymph Absolute: 1.8 E9/L (10/18/22 14:39:00) [place] Absolute: 1.3 E9/L High (10/18/22 14:39:00) Eos [...] assessed the patient i (more content not included)...[facility]Result Comment: Electronically Signed By: Cristin MOSS, Jona Rivera\.rafael\Date and Time Signed: 10/18/22 19:03 EDTEvaluation note* Diagnosis Third trimester state, incidental 36 weeks gestation of documented in this encounter [facility]* Diagnosis Third trimester state, incidental SGA (small for gestational age) [id number] without mention of malnutrition, unspecified (weight) 37 weeks gestation of documented in this encounter [facility] Narrative No data available for this section [facility] No data available for this section [facility] No data available for this section [facility] Summary Purpose Family History No Family History Records FoundNo Family History Records Found No data available for this section No data available for this section No Family History Records Found Advance Directives No Advanced Directives Records FoundNo Advanced Directives Records FoundNo Advanced Directives Records Found Additional Source Comments INFORMATION SOURCE (unrecogn ized section and content) DATE CREATED AUTHOR 10/13/2022 [facility] DATE CREATED AUTHOR AUTHOR'S ORGANIZ ATION 01/24/2023 [facility] DATE CREATED AUTHOR AUTHOR'S ORGANIZ ATION 03/25/2024 [facility] EPIC Patient Care team informatio n (unrecognized section and content) Personnel Name: Roslyn Valdes MD Address: Address: [address] [place] [address] Personnel Name: Roslyn Valdes MD Address: Address: [address] [place] [address] Personnel Name: Roslyn Valdes MD Address: Address: [address] [place], [place] [address] Reason for Visit (unrecogniz ed section and [...] BE BASED ON THE PRIMARY CLINICAL RECORDS. [facility]. provides no warranty or guarantee of the accuracy or completeness of information in this document.
[2024-03-27 15:15] VITALS: BP 110/67; PULSE 81
--- OUTSIDE RECORDS SUMMARY | 2024-03-30 08:52 | XMS_ITS | CCD ---
Author Organization [facility] Care Team Providers Care Associate Relations Specialist Name Role Phone DELORES ., DR MAN Admitting Unavailable DELORES ., DR MAN Attending Unavailable DELORES ., DR MAN Consulting Unavailable DELORES ., DR MAN Admitting Unavailable DELORES ., DR MAN Attending Unavailable DELORES ., DR MAN Consulting Unavailable DOLORES ., LUANA Admitting Unavailable DOLORES ., LUANA Attending Unavailable DOLORES ., LUANA Consulting Unavailable DOLORES ., LUANA Admitting Unavailable DOLORES ., LUANA Attending Unavailable ZIEBER, DR CAMELIA Isabel Consulting Unavailable DOLORES ., LUANA Consulting Unavailable DELORES ., DR [...] Primary Care Provider UnavailIRVING Justice Attending Unavailable DOLORESLUANA Attending Unavailable DELORESIRVING HOWELL Attending Unavailable DELORESIRVING HOWELL Attending Unavailable DOLORESLUANA Attending Unavailable DELORESIRVING Attending Unavailable DOLORES LUANA Attending Unavailable DELORESIRVING Attending Unavailable DOLORESLUANA Attending Unavailable IRVING LIMON Attending Unavailable Medications Current Medications Medication Drug Class(es) Dates Sig (Normalized) Sig (Original) cephalexin 500 mg oral capsule (1 source) Cephalosporin Antibacterial Start: 10-19-2022 End: 10-23-2022 take 1 capsule by mouth every six hours Keflex 500 mg Cap 500 mg = 1 cap(s), Oral, q6hr, X 4 day(s), # 16 cap(s), Refills(s) 0, Pharmacy: [facility], 152, cm, 10/18/22 13:33:00 EDT, Height/Length [...] SEXUAL TRNSMS] Onset: 08-31-2022 Episodic Menstrual disorders (11 sources) Irregular menstruation, unspecified; Translations: [Missed period] Onset: 07-23-2022 Chronic Other female genital disorders (4 sources) Other specified noninflammatory disorders of vagina; Translations: [OTH SPEC NONINFLAMMATORY D/O VAGINA] Onset: 08-23-2022 Episodic Other hematologic conditions (1 source) Abnormal finding on evaluation procedure; Translations: [Other specified abnormalities of plasma proteins] Onset: 10-18-2022 Episodic Other and delivery including normal (20 sources) Encounter for supervision of normal , [...] of ] 03-19-2024 Episodic Residual codes; unclassified (5 sources) Gestation period, 37 weeks; Translations: [37 weeks gestation of ] Onset: 03-23-2024 03-23-2024 Episodic Short gestation; low weight; and growth retardation (5 sources) Hfbsf-hsd-vrqwh baby; Translations: [ small for gestational age, unspecified weight] Onset: 03-23-2024 03-23-2024 Episodic Syncope (1 source) Syncope and collapse; Translations: [Syncope and collapse] Onset: 10-18-2022 Episodic Unclassified (3 sources) Decreased body mass index 05-26-2020 Unclassified (3 sources) Patient encounter status 05-25-2020 Unclassified (7 sources) OB Reminders Onset: 12-24-2022 12-24-2022 Urinary tract infections (1 source) Urinary tract infectious disease; Translations: [Urinary tract infection, site not specified] Onset: 10-18-2022 Episodic Viral infection (1 source) Viral disease; Translations: [Viral infection, unspecified] Onset: 06-18-2023 Episodic Past or Other Problems Problem Classification Problem Date Documented Da te Episodic/Chronic Nausea and vomiting (7 sources) Nausea; Translations: [Nausea] Onset: 11-27-2022 11-27-2022 Episodic Results Test Name Value Interpretation Reference Range Facility [facility] UA (CLEAN/CATCH) 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 YELLOW YELLOW [facility] GLUCOSE URINE UA Negative NEGATIVE mg/dL [facility] Interpretation and review of laboratory results Abnormal [facility] Ketones Ql (U) 15 mg/dL Abnormal NEGATIVE [facility] Leukocyte esterase Test strip Ql (U) TRACE Abnormal NEGATIVE [facility] NITRITE URINE Negative NEGATIVE [facility] pH (U) 7.5 [pH] 5.0 - 9.0 [facility] PROTEIN URINE Negative NEG/TRACE mg/dL [facility] SPECIFIC GRAVITY URINE 1.010 1.005 - 1.025 [facility] URINE MICROSCOPIC INDICATED YES [facility] UROBILINOGEN URINE 0.2 EU/dL 0.2 - 1.0 EU/dL [facility] Urinalysis macro (dipstick) panel (U)on 03-19-2024 Bilirubin, UA Negative Negative - 4(70) +++ mg/dL [facility] Blood, UA Negative Negative - 50 Jb/mcL [facility] Clarity, UA Cloudy [facility] Color, UA Yellow [facility] Glucose, UA Negative Negative - 1999(110) ++++ mg/dL [facility] Interpretation and review of laboratory results Abnormal [facility] Ketones, UA Negative Negative - 160(16) ++++ mg/dL [facility] Leukocytes, UA Positive Negative - 500+++ Josh/mcL [facility] Comment on above: small Nitrite, UA Negative Negative - Positive [facility] pH, UA 7.0 5 - 9 [facility] Protein, UA Negative Negative - 1999(20) ++++ mg/dL [facility] Spec Grav, UA 1.020 1 - 1.03 [facility] Urobilinogen, UA 0.2 0.2 - 12 mg/dL [facility] Nursing Assessmenton 023 Nursing Assessment [id number] #1.00CD:127 Normal [facility] Discharge Instructionson Discharge Instructions [id number] #1.00CD:127 [facility] C Urineon 10-20-2022 Bacteria identified Cx [facility] (U) Microbiology PROCEDURE: Urine Culture [R1] SOURCE: U CleanCatch BODY SITE: COLLECTED DATE/TIME: 10/18/2022 13:37 EDT RECEIVED DATE/TIME: 10/18/2022 14:02 EDT START DATE/TIME: 10/18/2022 14:02 EDT FREE TEXT SOURCE: Favian Ahumada DO, DO, Kevin M. FINAL REPORTS Final Report [] Verified Date/Time: 10/20/2022 11:12 EDT 200 cfu/ml Mixed skin contaminants Performing Locations R1: This test was performed at: [facility], [address] [place] [address], [address] , , [facility] Comment on above: Performed By: #### 2 [id number] ####[facility] [address] [place] [address] Cortisolon 10-20-2022 Cortisol [Mass/Vol] 18.4 microgram/dL Invalid Interpretation Code 6.2-19.4 [facility] Comment on above: Result Comment: Yudith jeter Note: The reference interval and flagging for this test is for an AM collection. If this is a PM collection please use: Cortisol PM: 2.3-11.9 Performed at: [address] [id number] PhD Buck Montes Performed By: #### 2 [id number] #### [facility] [address] [place] [address] Auto Diffon 10-19-2022 Basophils/100 WBC (Bld) 0.4 % Normal 0.0-2.0 F [facility] Comment on above: Order Comment: Order Added by Discern Expert. Performed By: #### 2 [id number] #### [facility] [address] [place] [address] Basophils/Leukocytes Auto (Bld) [Pure # fraction] 0.1 E9/L Normal 0.0-0.2 [facility] Comment on above: Order Comment: Order Added by Discern Expert. Performed By: #### 2 [id number] #### [facility] [address] [place] [address] Eosinophils/100 WBC (Bld) 0.6 % Normal 0.0-8.0 [facility] Comment on above: Order Comment: Order Added by Discern Expert. Performed By: #### 2 [id number] #### [facility] [address] [place] [address] Eosinophils/Leukocytes Auto (Bld) [Pure # fraction] 0.1 E9/L Normal 0.0-0.5 [facility] Comment on above: Order Comment: Order Added by Discern Expert. Performed By: #### 2 [id number] #### [facility] [address] [place] [address] Lymphocytes/100 WBC (Bld) 12.3 % Low 14.0-50.0 [facility] Comment on above: Order Comment: Order Added by Discern Expert. Performed By: #### 2 573029 #### [facility] [address] [place] [address] Lymphocytes/Leukocytes Auto (Bld) [Pure # fraction] 2.0 E9/L Normal 1.0-4.0 [facility] Comment on above: Order Comment: Order Added by Discern Expert. Performed By: #### 2 [id number] #### [facility] [address] [place] [address] Monocytes/100 WBC (Bld) 8.5 % Normal 4.0-14.0 [facility] Comment on above: Order Comment: Order Added by Discern Expert. Performed By: #### 2 292381 #### [facility] [address] [place] [address] Monocytes/Leukocytes Auto (Bld) [Pure # fraction] 1.4 E9/L High 0.2-1.0 [facility] Comment on above: Order Comment: Order Added by Discern Expert. Performed By: #### 2 950806 #### [facility] [address] [place] [address] Neutrophils/100 WBC (Bld) 78.2 % High 36.0-75.0 [facility] Comment on above: Order Comment: Order Added by Discern Expert. Performed By: #### 2 124407 #### [facility] [address] [place] [address] Neutrophils/Leukocytes Auto (Bld) [Pure # fraction] 12.7 E9/L High 2.0-7.5 [facility] Comment on above: Order Comment: Order Added by Discern Expert. Performed By: #### 2 087511 #### [facility] [address] [place] [address] BMPon 10-19-2022 Anion gap [Moles/Vol] 10 mmol/L Normal 6-16 [facility] Comment on above: Performed By: #### 2 556643 #### [facility] [address] [place] [address] Calcium [Mass/Vol] 8.0 mg/dL Low 8.9-11.1 [facility] Comment on above: Performed By: #### 2 048775 #### [facility] [address] [place] [address] Chloride [Moles/Vol] 106 mmol/L Normal 101-111 [facility] Comment on above: Performed By: #### 2 329503 #### [facility] [address] [place] [address] CO2 [Moles/Vol] 23 mmol/L Normal 21-31 [facility] Comment on above: Performed By: #### 2 720938 #### [facility] [address] [place] [address] Creatinine [Mass/Vol] 0.5 mg/dL Normal 0.5-1.3 [facility] Comment on above: Performed By: #### 2 356889 #### [facility] [address] [place] [address] Glucose [Mass/Vol] 82 mg/dL Normal 55-199 [facility] Comment on above: Result Comment: If t his glucose result represents a fasting glucose, interpretation should refer to the following reference range: 55-99 mg/dL Performed By: #### 2 248703 #### [facility] [address] [place] [address] Potassium [Moles/Vol] 3.6 mmol/L Normal 3.5-5.3 [facility] Comment on above: Performed By: #### 2 206590 #### [facility] [address] [place] [address] Sodium [Moles/Vol] 135 mmol/L Normal 135-145 [facility] Comment on above: Performed By: #### 2 097767 #### [facility] [address] [place] [address] Urea nitrogen [Mass/Vol] 5 mg/dL Normal 5-21 [facility] Comment on above: Performed By: #### 2 414646 #### [facility] [address] [place] [address] Urea nitrogen/Creatinine [Mass ratio] 10 No Units Normal 10-20 [facility] Comment on above: Performed By: #### 2 [id number] #### [facility] [address] [place] [address] CBC w/ Auto Diffon 3 Erythrocyte distribution width (RBC) [Ratio] 13.6 % Normal 10.9-14.2 [facility] Comment on above: Performed By: #### 2 520479 #### [facility] [address] [place] [address] Hematocrit (Bld) [Volume fraction] 34.1 % Normal 34.0-46.0 [facility] Comment on above: Performed By: #### 2 207230 #### [facility] [address] [place] [address] Hemoglobin (Bld) [Mass/Vol] 11.3 g/dL Low 12.0-16.0 [facility] Comment on above: Performed By: #### 2 344621 #### [facility] [address] [place] [address] MCH (RBC) [Entitic mass] 30.3 pg Normal 27.0-34.0 [facility] Comment on above: Performed By: #### 2 734728 #### [facility] [address] [place] [address] MCHC (RBC) [Mass/Vol] 33.2 g/dL Normal 31.4-36.0 [facility] Comment on above: Performed By: #### 2 097131 #### [facility] [address] [place] [address] MCV (RBC) [Entitic vol] 91.3 fL Normal 80.0-100.0 F [facility] Comment on above: Performed By: #### 2 259144 #### [facility] [address] [place] [address] Platelet mean volume (Bld) [Entitic vol] 8.9 fL Normal 6.4-10.8 [facility] Comment on above: Performed By: #### 2 050716 #### [facility] [address] [place] [address] Platelets (Bld) [#/Vol] 146.0 E9/L Low 150.0-500.0 [facility] Comment on above: Performed By: #### 2 595536 #### [facility] [address] [place] [address] RBC (Bld) [#/Vol] 3.7 E12/L Low 4.3-5.9 [facility] Comment on above: Performed By: #### 2 691141 #### [facility] [address] [place] [address] WBC corrected for nucl RBC Auto (Bld) [#/Vol] 16.3 E9/L High 4.0-11.0 [facility] Comment on above: Performed By: #### 2 720374 #### [facility] [address] [place] [address] CHEMISTRYOrdered By: SYSTEM SYSTEM on 10-19-2022 Anion gap [Moles/Vol] 10 mmol/L Normal 6 - 16 mEq/L F [facility] Calcium [Mass/Vol] 8.0 mg/dL Low 8.9 - 11. 1 mg/dL [facility] Chloride [Moles/Vol] 106 mmol/L Normal 101 - 1 11 mmol/L [facility] CO2 [Moles/Vol] 23 mmol/L Normal 21 - 31 mmol/L [facility] Creatinine [Mass/Vol] 0.5 mg/dL Normal 0.5 - 1.3 mg/dL [facility] GFR/1.73 sq M.predicted among non-blacks MDRD (S/P/Bld) [Vol rate/Area] 138 mL/min/1.73 m2 Normal >=59mL/min/1 .73 m2 [facility] Chem S Glucose [Mass/Vol] 82 mg/dL Normal 55 - 199 mg/dL [facility] Magnesium [Mass/Vol] 1.7 mg/dL Normal 1.3 - 2 .4 mg/dL [facility] Phosphate [Mass/Vol] 3.8 mg/dL Normal 1.9 [...] Cristin MOSS, Jona Rivera Consulting Physician - Isreal MOSS, Sahil Fuller Reason for Your Visit Dizziness Your Diagnosis [...] Pending Diagnostic Test Results None [facility] New Follow Up Appointments after Discharge Follow Up with Sahil Butler MD When: Within 2 weeks Where: [address] [place] [phone] Follow Up with Roslyn Valdes MD, [facility], MED When: Within 2 to 4 days Where: [phone] Medications What How Much When Instructions Next Dose New cephalexin (Keflex 500 mg Cap) 1 Capsules By Mouth Every 6 hours Duration: 4 Days Pickup at [facility] Pharmacy Information [facility]: [address] [place], [place] [id number] [phone] What How Much When Comments Stop Taking [...] (more content not included)... Normal [facility] ED Clinical Summaryon 2022 ED Clinical Summary [address] [address] ED Clinical Summary Person Information Name: SIDNEY CANDELARIO/New_Fernando Age: 22 Years : 2000 Sex: Female Language: Panamanian PCP: Roslyn Valdes MD Marital Status: Visit [...] 10/18/2022 22:10:25 10/18/2022 22:10:25 10/18/2022 22:10:25 ADDRESS: [address] [place] [phone] [facility] DOC NOTES: MEDICAL INFORMATION: Prescriptions Given: Medications to Continue with No Changes Other Medications ibuprofen (ibuprofen 400 mg Tab) 1 Tablets By Mouth every 6 hours as needed for pain. Refills: 0. PATIENT EDUCATION INFORMATION: Instructions: Follow up: DIAGNOSIS: 1:Near syncope; 2:UTI (urinary tract infection); 3:Hypokalemia; Elevated troponin Normal [facility] ED Patient Education Noteon 10-19-2022 ED Patient Education Note Normal [facility] ED Patient Summaryon 023 ED Patient Summary [place] [id number] Patient Discharge Instructions Person Information Name: SIDNEY CANDELARIO Age: 22 Years Arrival Date: 10/18/2022 13:27:27 Discharge Diagnosis: 1:Near syncope; 2:UTI (urinary tract infection); 3:Hypokalemia; Elevated troponin Primary Care Physician: Roslyn Valdes MD Provider Information Primary Provider: Favian Ahumada DO Advanced Senior Data Developer:None The exam and treatment you received in the Emergency Department were for an urgent problem and are not intended as complete care. It is important that you follow up with a doctor, nurse practitioner, or physician?s doctor's assistant for ongoing care. If your symptoms become worse or you do not improve as expected and you are unable to reach your usual health care provider, you should return to the Emergency Department. We are available 24 hours a day. BEVERAGE SIDNEY AGUILAR has been given the following list of [...] opioids can be used to help relieve kjxxsbvb-mu-fyfepx pain and are often prescribed following a [...] be struggling with addiction, tell your health attending ambulatory care and ask for guidance or call [facility]?S National Helpline at 5-853-925-MAOB. b Source: [place] Department of Health and Human Services/Center for Disease Control & Prevention [facility] (more content not included)... Normal [facility] HEMATOLOGYOrdered By: SYSTEM SYSTEM on 10-19-2022 [...] Inpatient Clinical Summaryon 10-19-2022 Inpatient Clinical Summary [address] [address] Clinical Summary Person Information: Name: SIDNEY CANDELARIO Age: 22 Years : 2000 Sex: Female PCP: Roslyn Valdes MD Marital Status: Race: White Ethnicity: Non- or Language: Panamanian Visit Id: Visit Reason: Dizziness; UTI, NEAR SYNCOPE, HYPOKALEMIA Speciality: Acuity: Enc Type: Observation Med Service: Medical Arrival: 10/18/2022 13:27:27 Discharge: Dispo Type: Address: [address] [place] [phone] Provider Notes: Diagnosis: 1:Near syncope; 2:UTI (urinary [...] Physician: Cristin MOSS, Jona Rivera Consulting Physician: Sahil Butler MD Referring Physician: Follow up: With: Address: When: Roslyn Valdes MD, [facility], [facility] [phone] Within 2 to 4 days Patient Education Information: Normal [facility] Inpatient Patient Summaryon 10-19-2022 Inpatient Patient Summary [address] [address] Patient Discharge Instructions PERSON INFORMATION Name: SIDNEY CANDELARIO Date of : 2000 Current Date: 10/19/2022 09:40:25 PHYSICIANS Admitting Physician: Cristin MOSS, [facility] Primary Care Physician: Roslyn Valdes MD PCP Phone Number: [phone] Comment: Discharge Diagnosis: 1:Near syncope; 2:UTI (urinary [...] up: With: Address: When: Roslyn Valdes MD, [facility] [phone] Within 2 to 4 days In the event that this physician does not participate in your insurance network, please consult with your insurance company to find a nearby participating provider. Comment: IKODAK TAYLOR LEE, have received the attached patient [...] needed for pain. Refills: 0. Pharmacy Information: [facility] Comment: PATIENT EDUCATION INFORMATION Instructions: Medication Leaflets: You may receive a survey from Beth Nelson asking you to rate your care experience. Your feedback is important and will help us understand what we do well and how we can improve the quality of care we provide to you, your loved ones and our community. It?s an honor to serve you. Thank you for choosing [facility] Normal [facility] Interdisciplinary Note - Christ e Manageron 10-19-2022 Interdisciplinary Note - Boiler Control Technician Pt is awake and alert in bed, previously rounded with Dr. Amaral. Spouse at bedside, Pt is aware of plan for scan today and plan to DC home later today. Declines any concerns or DC needs. Observation status reviewed. PCP verified and insurance information reviewed and DME discussed. Contact information provided and white board updated. Normal [facility] Comment on above: Result Comment: Elec tronically Signed By: Heraclio GRAFF, Sayda\.rafael\Date and Time Signed: 10/19/22 11:06 EDT Magnesiumon 10-19-2022 Magnesium [Mass/Vol] 1.7 mg/dL Normal 1.3-2.4 [facility] Comment on above: Performed By: #### 2 [id number] #### [facility] [address] [place] [address] Monitor Recordon 10-19-2022 Monitor Record [id number]#1.00CD:127 Normal [facility] Monitor Record [id number]#1.00CD:127 Normal [facility] Monitor Record [id number]#1.00CD:127 Normal [facility] Monitor Record [id number]#1.00CD:127 Normal [facility] Patient Education - Texton 0 10-19-2022 [...] these instructions at home: Medicines ? Take kwnv-rrj-yvaxvhz and prescription medicines only as told by [...] provider. Document Revised: 10/05/2021 Document Reviewed: 10/05/2021 [employer] Patient Education ? 2022 [employer] Obstetrics and Gynecology Urinary Tract Infection, Adult [...] (more content not included)... Normal [facility] Phosphoruson 10-19-2022 Phosphate [Mass/Vol] 3.8 mg/dL Normal 1.9-4.6 [facility] Comment on above: Performed By: #### 2 [id number] #### [facility] [address] [place] [address] Progress Note-Physicianon Progress Note-Physician Basic Informatio n [...] drug abuse. ED physician discussed case with manager terminal Dr. Butler and PALLET ASSEMBLER Dr. Mortensen. Telemetry monitoring and echocardiogram was [...] made to ensure accuracy, however, inadvertently computerized energy scheduler mistakes may be present. Dr. Jona Bowser [facility] Hospitalist Subjective No major overnight events. No [...] Lymph Auto: 12.3 % Low (10/19/22 05:47:00) [place] Auto: 8.5 % (10/19/22 05:47:00) Eos Auto: 0.6 % (10/19/22 05:47:00) Basophil Auto: 0.4 % (10/19/22 05:47:00) Neutro Absolute: 12.7 E9/L High (10/19/22 05:47:00) Lymph Absolute: 2 E9/L (10/19/22 05:47:00) [place] Absolute: 1.4 E9/L High (10/19/22 05:47:00) Eos [...] (more content not included)... Normal [facility] Comment on above: Result Comment: Elec tronically Signed By: Cristin MOSS, Jona Rivera\.br\Date and Time Signed: 10/19/22 12:08 EDT Troponin 9 Hr.on 10-19-2022 Troponin I.cardiac [Mass/Vol] 48.10 pg/mL Abnormal 10.10-27.10 [facility] Comment on above: Order Comment: pt is not discharged despite the discharge status. pt is in room 302; third shift phleb was notified not to cancel pending orders. [id number] 10/18/2022 22:15:32 EDT Result Comment: Crit ical [...] Carlos, January 2018) Performed By: #### 1 [id number] #### [facility] [address] [place] [address] eGFRon 10-19-2022 GFR/1.73 sq M.predicted among non-blacks MDRD (S/P/Bld) [Vol rate/Area] 138 mL/min/1.73 m2 Normal >=59 [facility] Comment on above: Order Comment: Order added by Discern Expert. Result Comment: Systems Developer sydnie kidney disease could be indicated at eGFR's of less than 60 mL/min/1.73m2. Kidney failure is indicated at less than 15 mL/min/1.73m2. Performed By: #### 2 [id number] #### [facility] [address] [place] [address] Acetamnphn Lvlon 10-18-2022 Acetaminophen [Mass/Vol] ug/mL Low 15-30 [facility] Comment on above: Performed By: #### 1 [id number], [id number], [id number], [id number], [id number], [id number], [id number], [id number], [id number] ####[facility] [address] [place] [address] Auto Diffon 10-18-2022 Basophils/100 WBC (Bld) 0.6 % Normal 0.0-2.0 F [facility] Comment on above: Order Comment: Order Added by Discern Expert. Performed By: #### 1 6229844, 9703895, 4743855, 79632782, 9848188, 26364414, 55153253, 1038296, 9150531 ####[facility] [address] [place] [address] Basophils/Leukocytes Auto (Bld) [Pure # fraction] 0.1 E9/L Normal 0.0-0.2 [facility] Comment on above: Order Comment: Order Added by Discern Expert. Performed By: #### 1 3881630, 1236937, 2281140, 89237831, 7901834, 65217810, 65898317, 7846426, 9131106 ####[facility] [address] [place] [address] Eosinophils/100 WBC (Bld) 0.5 % Normal 0.0-8.0 [facility] Comment on above: Order Comment: Order Added by Discern Expert. Performed By: #### 1 8035740, 5643759, 0561619, 00656580, 2164407, 55721487, 46577695, 1349686, 9763610 ####[address] [place] [address] Eosinophils/Leukocytes Auto (Bld) [Pure # fraction] 0.1 E9/L Normal 0.0-0.5 [facility] Comment on above: Order Comment: Order Added by Linda Expert. Performed By: #### 1 0041519, 6556524, 5863021, 92449886, 1529198, 97041080, 28849944, 2961950, 8471789 ####[address] [place] [address] Lymphocytes/100 WBC (Bld) 11.2 % Low 14.0-50.0 [facility] Comment on above: Order Comment: Order Added by Discern Expert. Performed By: #### 1 9297113, 8661026, 5628649, 27476209, 3769729, 27212528, 82347045, 8655150, 0984756 ####[facility] [address] [place] [address] Lymphocytes/Leukocytes Auto (Bld) [Pure # fraction] 1.8 E9/L Normal 1.0-4.0 [facility] Comment on above: Order Comment: Order Added by Discern Expert. Performed By: #### 1 3930785, 9621301, 4709806, 34242909, 5999440, 64609042, 41366277, 8850152, 4082167 ####[address] [place] [address] Monocytes/100 WBC (Bld) 8.3 % Normal 4.0-14.0 [facility] Comment on above: Order Comment: Order Added by Discern Expert. Performed By: #### 1 4649386, 7924884, 0998853, 33408714, 5722438, 18247217, 32851285, 5357710, 9759830 ####[facility] [address] [place] [address] Monocytes/Leukocytes Auto (Bld) [Pure # fraction] 1.3 E9/L High 0.2-1.0 [facility] Comment on above: Order Comment: Order Added by Discern Expert. Performed By: #### 1 6250547, 9400899, 5782030, 10572699, 3623125, 19809665, 74188786, 3689361, 4345145 ####[facility] [address] [place] [address] Neutrophils/100 WBC (Bld) 79.4 % High 36.0-75.0 [facility] Comment on above: Order Comment: Order Added by Discern Expert. Performed By: #### 1 0738511, 5000334, 3297063, 35745770, 7947698, 82615405, 28909221, 8686671, 1543371 ####[facility] [address] [place] [address] Neutrophils/Leukocytes Auto (Bld) [Pure # fraction] 12.5 E9/L High 2.0-7.5 [facility] Comment on above: Order Comment: Order Added by Discern Expert. Performed By: #### 1 2207755, 2204499, 0138663, 39763867, 5404643, 81014986, 06941430, 0892057, 5759412 ####[facility] [address] [place] [address] BMPon 10-18-2022 Creatinine [Mass/Vol] 0.5 mg/dL Normal 0.5-1.3 [facility] Comment on above: Performed By: #### 1 7059570, 8728128, 9092518, 80585472, 3963925, 34704945, 03912921, 6895383, 9381159 #### [facility] [address] [place] [address] Urea nitrogen [Mass/Vol] 7 mg/dL Normal 5-21 [facility] Comment on above: Performed By: #### 1 1753814, 0719581, 9340163, 86056928, 0257379, 12277489, 14506895, 9661145, 1197961 #### [facility] [address] [place] [address] Urea nitrogen/Creatinine [Mass ratio] 14 No Units Normal 10-20 [facility] Comment on above: Performed By: #### 1 8241185, 5607903, 8653280, 73043459, 6443335, 29102988, 71858787, 6201244, 8433726 #### [facility] [address] [place] [address] Anion gap [Moles/Vol] 11 mmol/L Normal 6-16 [facility] Comment on above: Performed By: #### 1 7638163, 3500748, 0893776, 58721013, 1502723, 62880981, 78513865, 8232449, 7222096 #### [facility] [address] [place] [address] Calcium [Mass/Vol] 8.7 mg/dL Low 8.9-11.1 [facility] Comment on above: Performed By: #### 1 6911794, 3851061, 2219404, 73036911, 3261610, 60935733, 51104861, 2491719, 8153225 #### [facility] [address] [place] [address] Chloride [Moles/Vol] 102 mmol/L Normal 101-111 [facility] Comment on above: Performed By: #### 1 1705976, 6730708, 5196376, 24864408, 0465635, 17661589, 78619462, 0665883, 7214938 #### [facility] [address] [place] [address] CO2 [Moles/Vol] 26 mmol/L Normal 21-31 [facility] Comment on above: Performed By: #### 1 9097456, 9375977, 8601161, 49018576, 5787267, 27124393, 47389136, 9508461, 1963737 #### [facility] [address] [place] [address] Glucose [Mass/Vol] 97 mg/dL Normal 55-199 [facility] Comment on above: Result Comment: If t his glucose result represents a fasting glucose, interpretation should refer to the following reference range: 55-99 mg/dL Performed By: #### 1 7526310, 6687290, 4976585, 80947016, 5608957, 70829445, 24994065, 8926909, 6476034 #### [facility] [address] [place] [address] Potassium [Moles/Vol] 3.3 mmol/L Low 3.5-5.3 [facility] Comment on above: Performed By: #### 1 1397202, 3274234, 9581966, 96243379, 6272725, 53810752, 28047442, 1528031, 9106003 #### [facility] [address] [place] [address] Sodium [Moles/Vol] 136 mmol/L Normal 135-145 [facility] Comment on above: Performed By: #### 1 1306010, 0818922, 1637074, 78408738, 8290502, 25781176, 97273205, 6031923, 4271297 #### [facility] [address] [place] [address] CBC w/ Auto Diffon 3 Erythrocyte distribution width (RBC) [Ratio] 13.8 % Normal 10.9-14.2 [facility] Comment on above: Performed By: #### 1 9807455, 8926055, 9576257, 85294238, 1221411, 77475117, 88369988, 4931261, 9511904 #### [facility] [address] [place] [address] Hematocrit (Bld) [Volume fraction] 37.4 % Normal 34.0-46.0 [facility] Comment on above: Performed By: #### 1 4327708, 5910674, 2426489, 17156637, 9132686, 97268252, 80227294, 0579227, 4979681 #### [facility] [address] [place] [address] Hemoglobin (Bld) [Mass/Vol] 12.5 g/dL Normal 12.0-16.0 [facility] Comment on above: Performed By: #### 1 7933019, 3006509, 9355768, 21570868, 2393298, 96152343, 47653099, 1093674, 7102538 #### [facility] [address] [place] [address] MCH (RBC) [Entitic mass] 30.1 pg Normal 27.0-34.0 [facility] Comment on above: Performed By: #### 1 6965163, 9376123, 2860690, 11180564, 9667396, 23370981, 23240160, 2146857, 4813219 #### [facility] [address] [place] [address] MCHC (RBC) [Mass/Vol] 33.6 g/dL Normal 31.4-36.0 [facility] Comment on above: Performed By: #### 1 9436849, 1516764, 0594070, 06301936, 3406424, 81225843, 81170919, 8925794, 9231477 #### [facility] [address] [place] [address] MCV (RBC) [Entitic vol] 89.7 fL Normal 80.0-100.0 [facility] Comment on above: Performed By: #### 1 5099015, 9552258, 4058841, 71055740, 3583680, 92524138, 07715758, 1734459, 7047521 #### [facility] [address] [place] [address] Platelet mean volume (Bld) [Entitic vol] 9.2 fL Normal 6.4-10.8 [facility] Comment on above: Performed By: #### 1 3693465, 1145977, 9774670, 98505379, 7203973, 57047565, 42341090, 0361028, 0051168 #### [facility] [address] [place] [address] Platelets (Bld) [#/Vol] 146.0 E9/L Low 150.0-500.0 [facility] Comment on above: Performed By: #### 1 3272061, 4386930, 7150357, 12682980, 1556036, 59537855, 41972317, 6291930, 7518914 #### [facility] [address] [place] [address] RBC (Bld) [#/Vol] 4.2 E12/L Low 4.3-5.9 [facility] Comment on above: Performed By: #### 1 1157809, 8020950, 3730305, 66617003, 3338838, 86276422, 72710839, 4210211, 3100036 #### [facility] [address] [place] [address] WBC corrected for nucl RBC Auto (Bld) [#/Vol] 15.8 E9/L High 4.0-11.0 [facility] Comment on above: Result Comment: Slid e reviewed by 10/18/2022 15:09:43 EDT. Performed By: #### 1 0545794, 5802297, 0341094, 71772326, 8797757, 78701220, 52381229, 5514563, 1940145 #### [facility] [address] [place] [address] CHEMISTRYOrdered By: SYSTEM SYSTEM on 10-18-2022 Ethanol [Mass/Vol] mg/dL Normal <=7mg/dL [facility] R emisol Troponin I.cardiac [Mass/Vol] 53.00 pg/mL Invalid Interpretation Code 10.10 - 27.10 pg/mL [facility] Remisol Comment on above: Result Comment: Crit ical Result verified by previous result\ Critical Result I_hsTnI:53.0 Called to DAVDIA TAYLOR at ER by VALERIA ROGERS and [...] 16 mEq/L F C Remisol Calcium [Mass/Vol] 8.7 mg/dL Low 8.9 [...] Treatmenton 10-08 Consent for Treatment [id number] #1.00CD:127 Normal [facility] ED Note-Physicianon 10-19-19 23 ED Note-Physician [...] patient assessment and treatment. Medical Decision Making [facility] Data External documents reviewed: Not applicable My EKG interpretation: As below My CT interpretation: Not applicable My X-ray interpretation: As below My Ultrasound interpretation: Not applicable Decision rules/scores evaluated: Not applicable Discussed with: Dr. Mortensen, PALLET ASSEMBLER. Dr. Butler, cardiology. Dr. Calhuon, Hospitalist. Treatment and Disposition ED Course: 22-year-old [...] tachycardia. I will call and discuss with PALLET ASSEMBLER and cardiology. (more content not included)... Normal [facility] Comment on above: Result Comment: Elec tronically Signed By: Favian Ahumada DO\.br\Date and Time Signed: 10/18/22 19:58 EDT Ethanolon 10-18-2022 Ethanol [Mass/Vol] mg/dL Normal <=7 [facility] Comment on above: Performed By: #### 2 342434 ####[facility] [address] [place] [address] HEMATOLOGYOrdered By: SYSTEM SYSTEM on 10-18-2022 Basophils/100 [...] 89.7 fL Normal 80.0 - 100.0 fL [facility] HemeAutoSS Platelet mean volume (Bld) [Entitic vol] 9.2 fL Normal 6.4 - 10.8 fL [facility] HemeAutoSS Platelets (Bld) [#/Vol] 146.0 E9/L Low 150. 0 - 500.0 E9/L [facility] HemeAutoSS RBC (Bld) [#/Vol] 4.2 E12/L Low 4.3 - 5.9 E12/L [facility] HemeAutoSS WBC corrected for nucl RBC Auto (Bld) [#/Vol] 15.8 E9/L High 4.0 - 11.0 E9/L [facility] HemeAutoSS Comment on above: Result Comment: Slid e reviewed by 10/18/2022 15:09:43 EDT. Laboratory - Microbiology an d Antimicrobial susceptibilityOrdered By: Nyla Rajan on 10-18-2022 Bacteria identified Cx Nom (U) 100 cfu/ml Mixed skin contaminants [facility] Monitor Recordon 10-18-2022 Monitor Record [id number]#1.00CD:127 Normal [facility] Monitor Record [id number]#1.00CD:127 Normal [facility] Monitor Record [id number]#1.00CD:127 Normal [facility] PT & PTTon 10-18-2022 aPTT Coag (PPP) [Time] 25.8 second(s) Normal 25.1-36.5 [facility] Comment on above: Result Comment: Para [...] the same coagulation reagent and instrumentation as [facility]. Currently there are no coagulation studies available worldwide for children to 14 days, and no normal ranges. Heparin therapeutic range (represented by Anti-Factor Xa activity of 0.2 - 0.4 U/mL) corresponds to PTT of 56.6 - 109.0 sec. Performed By: #### 1 2715980, 7482800, 6904764, 91219643, 9088855, 72277259, 42254662, 2193105, 0961252 #### [facility] [address] [place] [address] INR Coag (PPP) [Relative time] 1.0 {INR} Invalid Interpretation Code [facility] Comment on above: Result Comment: INR results are specifically intended to assess patients stabilized on long-term Anticoagulation therapy suggested INR?s ?Less Intensive Anticoagulation? 2.0 ? 3.0 Conventional Range 3.0 ? 4.5 Performed By: #### 1 1016666, 2238430, 1654315, 81088968, 0832529, 86301873, 07505403, 1209560, 9270352 #### [facility] [address] [place] [address] PT Coag (PPP) [Time] 10.8 second(s) Normal 9.4-12.5 [facility] Comment on above: Result Comment: 15 [...] the same coagulation reagent and instrumentation as [facility]. Currently there are no coagulation studies available worldwide for children to 14 days, and no normal ranges. Performed By: #### 1 9940084, 3585968, 4133309, 31079986, 7799286, 67097486, 57059248, 5350565, 2211662 #### [facility] [address] [place] [address] Progress Note-Nurseon 2022 Progress Note-Nurse Patient: SIDNEY CANDELARIO Age: 22 years Sex: Female : 2000 Associated Diagnoses: None Author: Mell GRAFF, Meghna 25 week GI P0 in ER. heart tracing times 10 minutes obtained. Baseline 150bpm, moderate variability with accelerations increasing to 160. Audible movement. Pt states she can feel movement. Normal [facility] Salicylateon 10-18-2022 Salicylates [Mass/Vol] mg/dL Low 6-29 [facility] Comment on above: Performed By: #### 1 5733850, 2351188, 7518553, 08667630, 5922825, 13168303, 50445319, 8870420, 7203244 ####[facility] [address] [place] [address] TSH With T4fr Reflexon 10-18 TSH Qn 1.50 m[IU]/L Normal 0.34-5.60 [facility] Comment on above: Performed By: #### 1 5643535, 3679061, 8800006, 08320105, 8895510, 62515476, 76491127, 5537849, 4805104 ####[facility] [address] [place] [address] Troponinon 10-18-2022 Troponin I.cardiac [Mass/Vol] 47.10 pg/mL Abnormal 10.10-27.10 [facility] Comment on above: Result Comment: Crit [...] conjunction with clinical conditions of myocardial infarction. ([employer] High Sensitivity Troponin I Instructions For Use, [place], January 2018) Performed By: #### 2 125193 #### [facility] [address] [place] [address] Troponin 0 Hr.on 10-18-2022 Troponin I.cardiac [Mass/Vol] 42.20 pg/mL Abnormal 10.10-27.10 [facility] Comment on above: Result Comment: Crit [...] conjunction with clinical conditions of myocardial infarction. ([employer] High Sensitivity Troponin I Instructions For Use, [place], January 2018) Performed By: #### 1 9656958, 4377167, 6124289, 89448425, 3263433, 87559699, 36780799, 9125409, 8027575 ####[facility] [address] [place] [address] Troponin 3 Hr.on 10-18-2022 Troponin I.cardiac [Mass/Vol] 49.60 pg/mL Abnormal 10.10-27.10 [facility] Comment on above: Result Comment: Crit [...] conjunction with clinical conditions of myocardial infarction. ([employer] High Sensitivity Troponin I Instructions For Use, [place], January 2018) Performed By: #### 1 2985566 #### [facility] [address] Troponin 6 Hr.on 10-18-2022 Troponin I.cardiac [Mass/Vol] 53.00 pg/mL Abnormal 10.10-27.10 [facility] Comment on above: Result Comment: Crit ical Result verified by previous result\ Critical Result I_hsTnI:53.0 Called to ADVIDA TAYLOR at ER by VALERIA ROGERS and read back for confirmation at 10/18/2022 21:36:32 The 95% CI (Confidence Interval) PPV (Positive Predictive Value) for myocardial infarction in females is 38 pg/mL, in males 51 pg/mL. The results should be used in conjunction with clinical conditions of myocardial infarction. ([employer] High Sensitivity Troponin I Instructions For Use, [place], January 2018) Performed By: #### 1 3518261 #### [facility] [address] [place] [address] U Drug Screenon 10-18-2022 Amphetamines Screen method >1000 ng/mL Ql (U) Negative Normal Negative [facility] Comment on above: Result Comment: Nega tive Cutoff: <1000 ng/mL Performed By: #### 2 070156, 5409338, 99006509 ####[facility] [address] [place] [address] Barbiturates Screen Ql (U) Negative Normal Negative [facility] Comment on above: Result Comment: Nega tive Cutoff: <200 ng/mL Performed By: #### 2 693537, 9827027, 69492036 ####[facility] [address] [place] [address] Benzodiazepines Ql (U) Negative Normal Negative [facility] Comment on above: Result Comment: Nega tive Cutoff: <200 ng/mL Performed By: #### 2 473510, 8686226, 75826060 ####[facility] [address] [place] [address] Cocaine Ql (U) Negative Normal Negative [facility] Comment on above: Result Comment: Nega tive Cutoff: <300 ng/mL Performed By: #### 2 125561, 6798016, 80072292 ####[facility] [address] [place] [address] Opiates Screen Ql (U) Negative Normal Negative [facility] Comment on above: Result Comment: Nega tive Cutoff: <300 ng/mL Performed By: #### 2 397277, 8713464, 22794906 ####[facility] [address] [place] [address] Phencyclidine Screen method >25 ng/mL Ql (U) Negative Normal Negative [facility] Comment on above: Result Comment: Nega tive Cutoff: <25 ng/mL These drug screen results are to be used for medical (i.e., treatment) purposes only. Unconfirmed drug screening results must not be used for non-medical purposes (e.g., employment testing, legal testing). Performed By: #### 2 533128, 6672679, 29348195 ####[facility] [address] [place] [address] Tetrahydrocannabinol Screen method >50 ng/mL Ql (U) Negative Normal Negative [facility] Comment on above: Result Comment: Nega tive Cutoff: <50 ng/mL Performed By: #### 2 467283, 6887785, 14949540 ####[facility] [address] [place] [address] UA With Cult Reflexon 2022 Bacteria LM Ql (Urine sed) 2+ /HPF Abnormal Trace [facility] Comment on above: Performed By: #### 2 755243, 5510040, 73258305 ####[facility] [address] [place] [address] Bilirubin Ql (U) Negative Normal Negative [facility] Comment on above: Performed By: #### 2 106831, 9214563, 63349993 ####[facility] [address] [place] [address] Clarity (U) SL CLOUDY Abnormal Clear [facility] Comment on above: Performed By: #### 2 002012, 7707428, 51975524 ####[facility] [address] [place] [address] Color (U) YELLOW Normal Yellow [facility] Comment on above: Performed By: #### 2 335592, 7946990, 32732218 ####[facility] [address] [place] [address] Epithelial cells.squamous LM.HPF (Urine sed) [#/Area] /[HPF] Normal 0-2 [facility] Comment on above: Performed By: #### 2 859600, 6263683, 59864117 ####[facility] [address] [place] [address] Glucose Test strip (U) [Mass/Vol] Negative Normal Negative [facility] Comment on above: Performed By: #### 2 831141, 1046306, 68885532 ####[facility] [address] [place] [address] Hemoglobin Ql (U) Negative Normal Negative [facility] Comment on above: Performed By: #### 2 984471, 0437218, 88861548 ####[facility] [address] [place] [address] Ketones (U) [Mass/Vol] Negative Normal Negative [facility] Comment on above: Performed By: #### 2 140388, 0743529, 93967019 ####[facility] [address] [place] [address] [place].plasma/[place].R BC (Bld) [Mass ratio] 4-20 Normal 0-3 [facility] Comment on above: Performed By: #### 2 302070, 8582861, 19183331 ####[facility] [address] [place] [address] Nitrite Ql (U) Negative Normal Negative [facility] Comment on above: Performed By: #### 2 675386, 9274695, 94872203 ####[facility] [address] [place] [address] pH (U) 6.5 [pH] Invalid Interpretation Code 5.0-9.0 [facility] Comment on above: Performed By: #### 2 019237, 8172367, 21830184 ####[facility] [address] [place] [address] Protein (U) [Mass/Vol] Negative Normal Negative [facility] Comment on above: Performed By: #### 2 602983, 3267650, 41414933 ####[place] [address] Specific gravity (U) [Rel density] 1.015 Invalid Interpretation Code 1.005-1.030 [facility] Comment on above: Performed By: #### 2 288261, 5418394, 49854076 ####[address] [address] Type of Urine collection method Clean Catch Normal [facility] Comment on above: Performed By: #### 2 098537, 4934303, 99052360 ####[place] [address]57 Urobilinogen Qn (U) 0.2 {Yg'U}/dL Normal 0.0-1.0 [facility] Comment on above: Performed By: #### 2 979806, 7523266, 49103855 ####[address] [address] WBC Auto Ql (U) 1+ Abnormal Negative [facility] Comment on above: Performed By: #### 2 015833, 5504447, 10345262 ####[address] [address] WBC LM.HPF (Urine sed) [#/Area] 16-25 Abnormal 0-5 [facility] Comment on above: Performed By: #### 2 617242, 1096947, 85951089 ####[address] [address] URINALYSISOrdered By: Citlali Rogers on 10-18-2022 Bacteria [...] PM) Normal Negative [facility] UA Auto SS [place].plasma/[place].R BC (Bld) [Mass ratio] 4-20 /HPF Normal [...] [facility] UA Auto SS Urobilinogen Qn (U) 0.2975293 {Yg'U}/dL Normal 0.0 - 1.0 EU/dL [facility] UA Auto SS WBC Auto Ql (U) 1+ *ABN* (10/18/22 1:37 PM) Invalid Interpretation Code Negative [facility] UA Auto SS WBC LM.HPF (Urine sed) [#/Area] 16-25 /HPF Invalid Interpretation Code 0-5/HPF [facility] UA Auto SS XR Chest Single Viewon [...] na DAP = na Normal [facility] eGFRon 10-18-2022 GFR/1.73 sq M.predicted among non-blacks MDRD (S/P/Bld) [Vol rate/Area] 138 mL/min/1.73 m2 Normal >=59 [facility] Comment on above: Order Comment: Order added by Discern Expert. Result Comment: Systems Developer sydnie kidney disease could be indicated at eGFR's of less than 60 mL/min/1.73m2. Kidney failure is indicated at less than 15 mL/min/1.73m2. Performed By: #### 1 3208531, 5716197, 6248709, 79147168, 2009488, 87953199, 74909691, 5877108, 3849375 #### [facility] [address] [place] [address] US PREG ANATOMY SINGLEon US PREG ANATOMY [...] Date: 2022-10-08 15:26 Normal [facility] CHLAMYDIA/GONOCOCCUS TETO (SW AB/URINE/PAPon 08-28-2022 Chlamydia trachomatis, TETO Negative Normal Negative [facility] Comment on above: Performed By: #### C T/NGNA #### [facility] [address] [place] [address] [address] Maribell Perea Neisseria gonorrhoeae, TETO Negative Normal Negative [facility] Comment on above: Performed By: #### C T/NGNA #### [facility] [address] [place] [address] [address] Maribell Perea VAGINITIS/VAGINOSIS DNA PROB Romeo 08-25-2022 Beatrice species Negative Normal Negative [facility] Comment on above: Performed By: #### V AGINT ####[facility] [address] [place] [address]Dr. Maribell Perea Gardnerella vaginalis Negative Normal Negative [facility] Comment on above: Performed By: #### V AGINT ####[facility] [facility] [address] [place], [place] [address]Nk. Maribell Perea Trichomonas vaginalis Negative Normal Negative [facility] Comment on above: Performed By: #### V AGINT ####[facility] [address] [place], [place] [address]Jo. Maribell Perea HEP B SURFACE ANTIGEN SCREEN on 07-25-2022 HBsAg Screen Negative Normal Negative [facility] Comment on above: Performed By: #### H BSANS #### [facility] [address] [address] [address] Maribell Perea HEPATITIS C VIRUS AB W/ REFL EX QUANTon 07-25-2022 HCV AB Non-Reactive Normal Non Reactive [facility] Comment on above: Performed By: #### H CVPCRR #### [facility] [address] [address] [address] Maribell Perea Interpretation: Comment Normal [facility] Comment on above: Result Comment: Not infected with HCV unless early or acute infection is suspected (which may be delayed in an immunocompromised individual), or other evidence exists to indicate HCV infection. Performed By: #### H CVPCRR #### [facility] [address] [address] [address] Maribell Perea HIV 1 AND 2 WITH REFLEXon HIV Screen 4th Generation wRfx Non-Reactive Normal Non Reactive [facility] Comment on above: Result Comment: HIV Negative HIV-1/HIV-2 antibodies and HIV-1 p24 antigen were NOT detected. There is no laboratory evidence of HIV infection. Performed By: #### H IV12 #### [facility] [address] [address] [address] Maribell Perea RPR QUANTon 07-25-2022 Rapid Plasma Reagin, Quant Non-Reactive Normal NonRea<1:1 [facility] Comment on above: Result Comment: Plea Note: This test does not meet current guidelines for screening and diagnosis of syphilis. This test is intended for following treatment response in patients being treated for syphilis infection. To screen for syphilis infection, a reflex cascade that includes both RPR and a treponema-specific assay should be utilized, such as Treponema pallidum (Syphilis) Screening [place] (996069) or Rapid Plasma Reagin (RPR) Test With Reflex to Quantitative RPR and Confirmatory Treponema pallidum Antibodies ([id number]). Performed By: #### R PRQ #### [facility] [address] [place] [address] Dr. Maribell Perea RUBELLA AB IGGon 07-25-2022 Rubella Antibodies, IgG <0.90 Critically low Immune > 0.99 [facility] Comment on above: Result Comment: Non- immune <0.90 Equivocal 0.90 - 0.99 Immune >0.99 Performed By: #### R UBIGG #### [facility] [address] [place] [address] Dr. Maribell Perea CULTURE URINEon 07-23-2022 CULTURE URINE Culture Observations: NO GROWTH. Normal [facility] Comment on above: Performed By: #### U RCX ####[facility] [address] [address]Dr. Maribell Perea GLYCOHEMOGLOBIN A1Con 2022 ADA RECOMMENDATION SEE BELOW Normal [facility] Comment on above: Result Comment: ADA RECOMMENDED LIMIT 4.0 - 6.0 ADA THERAPEUTIC TARGET < 7.0 ACTION SUGGESTED > 7.0 Performed By: #### A 1C #### [facility] [address] [place] [address] Dr. Maribell Perea Glucose [Mass/Vol] 97 mg/dL Normal [facility] Comment on above: Performed By: #### A 1C #### [facility] [address] [place] [address] Dr. Maribell Perea HbA1c (Bld) [Mass fraction] 5.0 % Normal 4.5-6.2 [facility] Comment on above: Performed By: #### A 1C #### [facility] [address] [place] [address] Dr. Maribell RIOJAS BOX TEST PT SEND OUTo n 07-23-2022 SENT TO REF LAB 07/23/2022 Normal [facility] Comment on above: Performed By: #### N BOX #### [facility] [address] [place], [place] [address] Dr. Maribell Perea TYPE AND SCREENon 07-23-2022 TYPE AND SCREEN Negative Normal [facility] Comment on above: Performed By: #### T NS ####[facility] [address] [place], [place] [address]RwDr. Maribell Perea US PREG TVon 06-28-2022 US [...] by: CAMELIA MENDEZ Date: 2022-06-28 09:17 Normal [facility] Vital Signs Date Time Vital Sign Value Performing Clinician Facility 03-23-2024 14:30-0400 Body mass index (BMI) [Ratio] 22.85 kg/m2 [email or web address] Work Phone: [facility] 03-23-2024 14:30-0400 Body weight 53.07 kg [email or web address] Work Phone: [facility] 03-23-2024 14:30-0400 Diastolic blood pressure 70 mm[Hg] [email or web address] Work Phone: [facility] 03-23-2024 14:30-0400 Systolic blood pressure 106 mm[Hg] [email or web address] Work Phone: [facility] 03-19-2024 15:39-0400 Body mass index (BMI) [Ratio] 22.26 kg/m2 Luana VALDOVINOS Work Phone: [facility] 03-19-2024 15:39-0400 Body weight 51.71 kg Luana Dolores PA Work Phone: [facility] 03-19-2024 15:39-0400 Diastolic blood pressure 72 mm[Hg] Luana Bejarano PA Work Phone: [facility] 03-19-2024 15:39-0400 Systolic blood pressure 110 mm[Hg] Luana Bejarano PA Work Phone: [facility] 06-18-2023 15:11-0500 Blood Pressure Location [facility] 06-18-2023 15:11-0500 Body temperature 97.88 [degF] [facility] 06-18-2023 15:11-0500 Diastolic blood pressure 76 mm[Hg] [facility] 06-18-2023 15:11-0500 Heart rate 90 /min [facility] 06-18-2023 15:11-0500 SaO2% (BldA) [Mass fraction] 98 % [facility] 06-18-2023 15:11-0500 Systolic blood pressure 116 mm[Hg] [facility] 10-19-2022 13:00-0400 Hourly Rounding Jona Cristin [facility] 10-19-2022 13:00-0400 Promise to Return Jona Cristin [facility] 10-19-2022 12:23-0400 Heart rate 101 /min Jona Cristin [facility] 10-19-2022 12:23-0400 SaO2% (BldA) [Mass fraction] 98 % Jona Cristin [facility] 10-19-2022 12:23-0400 Body temperature 98.06 [degF] Jona Cristin [facility] 10-19-2022 12:23-0400 Diastolic blood pressure 65 mm[Hg] Jona Cristin [facility] 10-19-2022 12:23-0400 Mean blood pressure 77 mm[Hg] Jona Cristin [facility] 10-19-2022 12:23-0400 Systolic blood pressure 102 mm[Hg] Jona Cristin [facility] 10-19-2022 12:15-0400 Hourly Rounding Jona Cristin [facility] 10-19-2022 12:15-0400 Promise to Return Jona Cristin [facility] 10-19-2022 11:21-0400 Hourly Rounding Jona Cristin [facility] 10-19-2022 11:21-0400 Promise to Return Jona Cristin [facility] 10-19-2022 08:24-0400 Heart rate 103 /min Jona Cristin [facility] 10-19-2022 08:24-0400 SaO2% (BldA) [Mass fraction] 98 % Jona Cristin [facility] 10-19-2022 08:24-0400 Diastolic blood pressure 61 mm[Hg] Jona Cristin [facility] 10-19-2022 08:24-0400 Mean blood pressure 72 mm[Hg] Jona Cristin [facility] 10-19-2022 08:24-0400 Systolic blood pressure 93 mm[Hg] Jona Cristin [facility] 10-19-2022 08:23-0400 Body temperature 98.24 [degF] Jona Cristin [facility] 10-19-2022 05:12-0400 Heart rate 95 /min Jona Cristin [facility] 10-19-2022 05:12-0400 SaO2% (BldA) [Mass fraction] 98 % Jona Cristin [facility] 10-19-2022 05:12-0400 Diastolic blood pressure 41 mm[Hg] Jona Cristin [facility] 10-19-2022 05:12-0400 Mean blood pressure 56 mm[Hg] Jona Cristin [facility] 10-19-2022 05:12-0400 Systolic blood pressure 86 mm[Hg] Jona Cristin [facility] 10-19-2022 05:12-0400 Body temperature 98.6 [degF] Jona Cristin [facility] 10-18-2022 22:59-0400 Respiratory rate 20 /min Ojna Cristin [facility] 10-18-2022 21:45-0400 Mean blood pressure 84 mm[Hg] Jona Cristin [facility] 10-18-2022 21:45-0400 Respiratory rate 15 /min Jona Cristin [facility] 10-18-2022 21:00-0400 Mean blood pressure 82 mm[Hg] Jona Cristin [facility] 10-18-2022 21:00-0400 Respiratory rate 17 /min Jona Cristin [facility] 10-18-2022 20:00-0400 Mean blood pressure 89 mm[Hg] Jona Cristin [facility] 10-18-2022 14:08-0400 gluc 93 mg/dL Jona Cristin [facility] 10-18-2022 14:08-0400 gluc Jona Cristin [facility] 10-18-2022 14:08-0400 Respiratory rate 15 /min Jona Amaral [facility] 10-18-2022 13:30-0400 Heart rate 108 /min Jona Amaral [facility] 10-18-2022 13:30-0400 Respiratory rate 16 /min Jonaguillermo Amaral [facility] Encounters Encounter Date Encounter Type Care Provider Facility Start: 03-26-2024 End: 03-26-2024 Clinisync Result Encounter Irving Delores DO Work Phone: [facility] Unsolicited Start: 03-26-2024 End: 03-26-2024 Clinisync Result Encounter Irving Delores DO Work Phone: [facility] Unsolicited Start: 03-23-2024 End: 03-23-2024 ambulatory IRVING DELORES Not Available Start: 03-23-2024 End: 03-23-2024 Bamboo flowsheet Irving Delores DO Work Phone: [facility] Start: 03-23-2024 End: 03-23-2024 Bamboo flowsheet Irving Delores DO Work Phone: [facility] Start: 03-23-2024 End: 03-23-2024 flow sheet Irving Delores DO Work Phone: [facility] Comment on above: Third trimester preg ida; SGA (small for gestational age); 37 weeks gestation of Start: 03-19-2024 End: 03-19-2024 ambulatory LUANA BEJARANO Not Available Start: 03-19-2024 End: 03-19-2024 flow sheet Luana VALDOVINOS Work Phone: [facility] Comment on above: Third trimester preg ida; 36 weeks gestation of Start: 03-19-2024 End: 03-19-2024 Bamboo flowsheet Luana Dolores PA Work Phone: [facility] Start: 03-19-2024 End: 03-19-2024 Bamboo flowsheet Luana Bejarano PA Work Phone: [facility] Start: 03-05-2024 End: 03-05-2024 ambulatory IRVING DELORES Not Available Start: 02-20-2024 End: 02-20-2024 ambulatory LUANA DOLORES Not Available Start: 02-05-2024 End: 02-05-2024 ambulatory IRVING DELORES Not Available Start: 01-22-2024 End: 01-22-2024 ambulatory LUANA DOLORES Not Available Start: 12-25-2023 End: 12-25-2023 ambulatory IRVING DELORES Not Available Start: 11-27-2023 End: 11-27-2023 ambulatory IRVING DELORES Not Available Start: 10-29-2023 End: 10-29-2023 ambulatory LUANA DOLORES Not Available Start: 10-01-2023 End: 10-01-2023 ambulatory IRVING DELORES Not Available Start: 09-05-2023 End: 09-05-2023 ambulatory IRVING DELORES Not Available Start: 06-18-2023 End: 06-18-2023 Lab Drop off [facility] Start: 06-18-2023 End: 06-18-2023 Patient encounter procedure [facility] Start: 10-22-2022 End: 10-22-2022 ambulatory Roslyn Valdes Facility:[id number] Start: 10-18-2022 End: 10-19-2022 ambulatory Sahil BUTLER Facility:[facility] Start: 10-18-2022 End: 10-19-2022 Observation Jona Amaral [facility] Start: 10-06-2022 End: 10-07-2022 ambulatory LUANA HILLMANEY . Facility: Start: 08-23-2022 End: 08-23-2022 ambulatory LUANA DOLORES . Facility:[facility] Start: 07-23-2022 End: 07-24-[address] IRVING LIMON . Facility:[facility] Start: 06-28-2022 End: 06-29-[address] IRVING LIMON . 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 Irving Limon DO Work Phone: Start: 03-19-2024 Urnls dip stick/tabl et rgnt non-auto w/o micrscp Luana Bejarano PA Work Phone: Plan of Treatment Date Care Activity Detail Author Start: 03-30-2024 End: 03-30-2024 Patient encounter procedure 03/30/2024 8:40 AM EDT Routine [facility] [address] [place] [address] Irving Limon, DO [address] [place] [address] [facility] Start: 03-23-2024 End: 03-23-2025 US biophysical profile w non stress test US biophysical profile w non stress test Imaging Routine Third trimester SGA (small for gestational age) Expected: 03/23/2024 (Approximate), Expires: 03/23/2025 [facility] Work Phone: Comment on above: Expected: 03/23/2024 (Approximate), Expires: 03/23/2025 Start: 03-19-2024 End: 03-19-2025 Strep B DNA probe, amplification Strep B DNA probe, amplification Lab Routine Third trimester Expected: 03/19/2024 (Approximate), Expires: 03/19/2025 [facility] Work Phone: Comment on above: Expected: 03/19/2024 (Approximate), Expires: 03/19/2025 Immunizations Immunization Date Immunization Notes Care Provider Ekaterina wilson 02-09-2021 meningococcal B vacc ine, recombinant, OMV, adjuvanted Jona Cristin [facility] 02-09-2021 meningococcal oligosaccharide (groups A, C, Y and W-135) diphtheria toxoid conjugate vaccine (MCV4O) [employer] [facility] 02-09-2021 hepatitis A vaccine, pediatric/adolescent dosage, 2 dose schedule [facility] 07-14-2018 hepatitis A vaccine, adult dosage [facility] 07-14-2018 HPV, unspecified formulation [facility] 07-14-2018 meningococcal B vacc ine, fully recombinant [facility] 12-26-2015 HPV, unspecified formulation [facility] 12-26-2015 meningococcal ACWY vaccine, unspecified formulation [facility] 12-26-2015 tetanus toxoid, unspecified formulation [facility] 04-28-2009 influenza virus vacc ine, unspecified formulation [facility] 04-28-2008 influenza virus vacc ine, unspecified formulation [facility] 02-26-2008 diphtheria, tetanus toxoids and acellular pertussis vaccine [facility] 02-26-2008 measles, mumps and rubella virus vaccine [facility] 02-26-2008 poliovirus vaccine, unspecified formulation [facility] 02-26-2008 varicella virus vaccine Vincent Vinobor [employer] [facility] 10-27-2003 diphtheria, tetanus toxoids and acellular pertussis vaccine [facility] 10-27-2003 haemophilus influenz ae type b vaccine, PRP-OMP conjugate [facility] 10-27-2003 measles, mumps and rubella virus vaccine [facility] 10-27-2003 varicella virus vaccine Vincent [employer] [facility] 04-28-2003 diphtheria, tetanus toxoids and acellular pertussis vaccine [facility] 04-28-2003 haemophilus influenz ae type b vaccine, PRP-OMP conjugate [employer] [facility] 04-28-2003 hepatitis B vaccine, pediatric or pediatric/adolescent dosage [facility] 04-28-2003 pneumococcal conjuga te vaccine, 13 valent [employer] [facility] 04-28-2003 poliovirus vaccine, unspecified formulation [employer] [facility] 2002 diphtheria, tetanus toxoids and acellular pertussis vaccine [facility] 2002 haemophilus influenz ae type b vaccine, PRP-OMP conjugate [facility] 2002 pneumococcal conjuga te vaccine, 13 valent Jona [employer] [facility] 2002 poliovirus vaccine, unspecified formulation [employer] [facility] 2002 diphtheria, tetanus toxoids and acellular pertussis vaccine [employer] [facility] 2002 haemophilus influenz ae type b vaccine, PRP-OMP conjugate [employer] [facility] 2002 hepatitis B vaccine, pediatric or pediatric/adolescent dosage [employer] [facility] 2002 pneumococcal conjuga te vaccine, 13 valent [facility] 2002 poliovirus vaccine, unspecified formulation [employer] [facility] 2002 hepatitis B vaccine, pediatric or pediatric/adolescent dosage [employer] [facility] Payers Date Payer Category Payer [facility] BCBS [id number] 2023 Unknown BCBS BCBS [id number] 2023-Present [phone] [address] [place] [address] [id number] 2023 Unknown [id number] 2023 Private Health Insurance [id number] 2021 Private Health Insurance 2002 Unknown [id number] [id number] 93 2002 Unknown [id number] 2.16.840.1.231987.3.579.2.5 93 2002 Unknown [id number] 2.16.840.1.806638.3.579.2.5 93 2002 Unknown [id number] 2.16.840.1.647261.3.579.2.5 93 2002 Unknown [id number] 2.16.840.1.681736.3.579.2.7 27 2002 Unknown [id number] 2.16.840.1.271182.3.579.2.7 27 2002 Unknown [id number] 2.16.840.1.552255.3.579.2.1 259 2002 Unknown [id number] 2.16.840.1.691716.3.579.2.1 259 2002 Unknown [id number] 2.16.840.1.292732.3.579.2.1 259 2002 Unknown [id number] 2.16.840.1.073791.3.579.2.1 259 2002 Unknown [id number] 2.16.840.1.272932.3.579.2.1 259 2002 Unknown [id number] 2.16.840.1.328900.3.579.2.1 259 2002 Unknown [id number] 2.16.840.1.217343.3.579.2.1 259 2002 Unknown [id number] 2.16.840.1.274684.3.579.2.1 259 2002 Unknown [id number] 2.16.840.1.328851.3.579.2.1 259 2002 Unknown [id number] 2.16.840.1.687128.3.579.2.1 259 2002 Unknown [id number] 2.16.840.1.308371.3.579.2.1 259 1959 Self-pay 1959 Unknown [id number] Unknown [id number] 2.16.840.1.121101.3.579.2.5 93 Social History Date Type Detail Facility Tobacco Never smoker [facility] Comment on above: denies Tobacco smoking status No Smokin g Status Entered [facility] Start: 09-05-2023 Sex Assigned At Female F [facility] Start: 06-18-2023 End: 10-29-2023 Tobacco smoking status Never smoked tobacco (finding) [facility] Comment on above: denies Tobacco smoking status Never [facility] Comment on above: [...] Assessment Result Facility 06-18-2023 Functional Status N/A [facility] 10-18-2022 Functional Status N/A [facility] 10-18-2022 Functional Status [facility] Clinical Notes 10-18-2022 to 03-23-2024 Nicole Ortiz [...] Irving Limon DO documented in this encounter [facility] 03-19-2024 History of Present illness Narrative Reason [...] of: ARUNA Singh documented in this encounter [facility] 06-18-2023 Hospital Discharge instructions Patient Education 06/18/2023 16:34:28 Pharyngitis, Dtgz-fw-Xsts Pharyngitis Pharyngitis is a sore throat (pharynx). [...] Follow these instructions at home: Medicines Take vaio-rys-kikliyp and prescription medicines only as told by [...] and water are not available, use hand clinical review nurse. Do not touch your eyes, nose, or [...] provider. Document Revised: 08/23/2021 Document Reviewed: 08/23/2021 [employer] Patient Education 2022 [employer]. 06/18/2023 16:34:25 Viral Illness, Adult Viral Illness, [...] Medicines to relieve symptoms. These can include qylv-nqp-txgnbqu medicine for pain and fever, medicines for cough or congestion, and medicines to relieve diarrhea. Antiviral medicines. These medicines are available only for certain types of viruses. Some viral illnesses can be prevented with vaccinations. A common example is the flu shot. Follow these instructions at home: Medicines Take afcj-hwc-vimqvef and prescription medicines only as told by [...] and water are not available, use hand clinical review nurse. Avoid touching your nose, eyes, and mouth, [...] provider. Document Revised: 10/10/2020 Document Reviewed: 04/05/2020 [employer] Patient Education 2022 [employer]. [facility] 06-18-2023 Evaluation + Plan note Diagnostic Tests PendingGroup A Strep by PCR 06/18/23 [facility] 01-23-2023 Note Procedure History None. [...] drug abuse. ED physician discussed case with manager terminal Dr. Butler and PALLET ASSEM[employer] Dr. Mortensen. Telemetry monitoring and echocardiogram was [...] written under the wrong FIN [facility] Comment on above: Result Comment: Elec [...] drug abuse. ED physician discussed case with manager terminal Dr. Butler and PALLET ASSEM[employer] Dr. Mortensen. Telemetry monitoring and echocardiogram was [...] 78.2 % Lymph Auto - 12.3 % Briscoe Auto - 8.5 % Eos Auto - 0.6 % Basophil Auto - 0.4 % Neutro Absolute - 12.7 E9/L Lymph Absolute - 2.0 E9/L Briscoe Absolute - 1.4 E9/L Eos Absolute - [...] Nitri (more content not included)... [facility] Comment on above: Result Comment: Elec [...] care. Jono Mortensen M.D. lr Dictated: 10/19/2022 [id number] Transcribed: 10/19/2022 cc:Irving Limon D.O. [facility] Comment on above: Result Comment: Elec tronically Signed By: Festus MOSS, Jono Layne\.br\Date and Time Signed: 10/20/22 02:24 EDT 10-19-2022 Note Order received, corinne t reviewed. Attempted PT evaluation at 1424 on 10/19/22. Pt. is out of room and has been discharged from [facility] prior to completion of PT evaluation. No PT charges. [facility] 10-19-2022 Note Echocardiology Procedure Exam Date/Time Accession # Ordering Dr. Longoria Transthoracic 10/19/2022 12:02 EDT [id number] Favian Ahumada DO Complete CPT code [id number] Reason for Exam (Echo Transthoracic Complete) Syncope Report [facility] [address] [place] [address] Adult Echocardiogram Report Name: SIDNEY CANDELARIO Study Date: 10/19/2022 11:33 AM BP: 93/61 mmHg Patient Location: [address] [place] [address] HR: 95 : 2000 Gender: Female Height: 60 in Age: 22 yrs Ethnicity: T Weight: 110 lb Reason For Study: Syncope BSA: 1.4 m2 History: No cardiac history per patient Ordering Physician: Diego^Favian^Palmer Performed By: Ro Guerrero, [facility] Interpretation Summary Ejection Fraction = 65-70%. [...] Transcribed by: MAYRA Technologist: ÁLVARO [facility] 10-19-2022 Evaluation + Plan note Extrac [...] made to ensure accuracy, however, inadvertently computerized energy scheduler mistakes may be present. Dr. Jona Amaral [...] Weight Diagnostic Tests Pending * Cortisol 10/19/22 [facility]05-12-2023 NoteChief Complaint Dizziness Reason for [...] not improve, she sought medical attention at [facility] emergency room. In theemergency room her [...] No q (more content not included)...[facility] [facility] HospitalComment [facility]: Result Comment: Electronically Signed By: Isreal MOSS, Sahil Hughes\Date and Time Signed: 10/19/22 10:01 [id number] Hospital Discharge instructions Patient Education 10/19/2022 09:40:44 [...] Treatment for this condition includes: Antibiotic medicine. Tuhk-juf-jmnnqdr medicines to treat discomfort. Drinking enough water [...] Follow these instructions at home: Medicines Take zpsv-seo-wfzgbaj and prescription medicines only as told by [...] provider. Document Revised: 01/06/2021 Document Reviewed: 01/06/2021 [employer] Patient Education 2022 [employer] 10/19/2022 09:40:42 Near-Syncope, Foqg-qh-Usdn Near-Syncope Near-syncope is when you suddenly feel [...] Follow these instructions at home: Medicines Take ihaj-xty-hbtobqq and prescription medicines only as told by [...] provider. Document Revised: 10/05/2021 Document Reviewed: 10/05/2021 [employer] Patient Education 2022 [employer]. Follow Up Care 10/18/2022 13:28:40 With:Isreal MOSS, Sahil Fuller Address: [address] [place] [address]- [phone] When:2 weeks With:Roslyn Valdes MD, [facility] Address: [phone] When:2 to 4 days [facility]05-11-2023 NoteChief Complaint pt reports being [...] drug abuse. ED physician discussed case with manager terminal Dr. Butler and [employer] Dr. Mortensen. Telemetry monitoring and echocardiogram was [...] Lymph Auto: 11.2 % Low (10/18/22 14:39:00) Briscoe Auto: 8.3 % (10/18/22 14:39:00) Eos Auto: 0.5 % (10/18/22 14:39:00) Basophil Auto: 0.6 % (10/18/22 14:39:00) Neutro Absolute: 12.5 E9/L High (10/18/22 14:39:00) Lymph Absolute: 1.8 E9/L (10/18/22 14:39:00) Briscoe Absolute: 1.3 E9/L High (10/18/22 14:39:00) Eos [...] patient i (more content not included)...[facility]Comment [facility]:Result Comment: Electronically Signed By: Cristin MOSS, Jona Rivera\.br\Date and Time Signed: 10/18/22 19:03 EDTEvaluation note* Diagnosis Third trimester state, incidental 36 weeks gestation of [facility]* Diagnosis Third trimester state, incidental SGA (small for gestational age) Hbqjd-dmf-yzrzz without mention of malnutrition, unspecified (weight) 37 weeks gestation of [facility] Narrative No data available for this section [facility] No data available for this section [facility] No data available for this section [facility] Summary Purpose Family History No Family History Records FoundNo Family History Records Found No data available for this section No data available for this section No Family History Records Found Advance Directives No Advanced Directives Records FoundNo Advanced Directives Records FoundNo Advanced Directives Records Found Additional Source Comments INFORMATION SOURCE (unrecogn ized section and content) DATE CREATED AUTHOR [facility]2022 [facility] DATE CREATED AUTHOR AUTHOR'S ORGANIZ ATION 01/24/2023 [facility] DATE CREATED AUTHOR AUTHOR'S ORGANIZ ATION 03/25/2024 [facility] EPIC Patient Care team informatio n (unrecognized section and content) Personnel Name: Roslyn Valdes MD Address: Address: [address] [place] [address] Personnel Name: Roslyn Valdes MD Address: Address: [address] [place] [address] Personnel Name: Roslyn Valdes MD Address: Address: [address] [place] [address] Reason for Visit (unrecogniz ed section and [...] ON THE PRIMARY CLINICAL RECORDS. [facility]. provides no warranty or guarantee of the accuracy or completeness of information in this document.
== END 2024-03-27 15:50 | disposition home or self-care (01) ==
LOC: FBC 15:53 → FBCO 03-30 08:48
PROVIDERS: Visit Provider Obstetrics & Gynecology
DX: O36.5930 Maternal care for other known or suspected poor fetal growth, third trimester, not applicable or unspecified (principal); Z3A.37 37 weeks gestation of pregnancy
CPT/HCPCS: 59025

== ENCOUNTER 2024-03-31 07:07 | Outpatient (OUT) | payer BC, SELFPAY ==
--- OUTSIDE RECORDS SUMMARY | 2024-03-31 07:10 | XMS_ITS | CCD ---
Author Organization [facility] Care Team Providers Care Special Education Paraprofessional Name Role Phone DELORES ., DR MAN [...] day(s), # 16 cap(s), Refills(s) 0, Pharmacy: [facility], 152, cm, 10/18/22 13:33:00 EDT, Height/Length [...] SEXUAL TRNSMS] Onset: 08-31-2022 Episodic Menstrual disorders (14 sources) Irregular menstruation, unspecified; Translations: [Missed period] [...] of ] 03-19-2024 Episodic Residual codes; unclassified (8 sources) Gestation period, 37 weeks; Translations: [37 weeks gestation of ] Onset: 03-23-2024 03-23-2024 Episodic Short gestation; low weight; and growth retardation (8 sources) Iuptu-zps-rdzsk baby; Translations: [ small for gestational age, unspecified weight] Onset: 03-23-2024 03-23-2024 Episodic Syncope (1 source) Syncope and collapse; Translations: [Syncope and collapse] Onset: 10-18-2022 Episodic Unclassified (3 sources) Decreased body mass index 05-26-2020 Unclassified (3 sources) Patient encounter status 05-25-2020 Unclassified (10 sources) OB Reminders Onset: 12-24-2022 12-24-2022 Urinary tract infections (1 source) Urinary tract infectious disease; Translations: [Urinary tract infection, site not specified] Onset: 10-18-2022 Episodic Viral infection (1 source) Viral disease; Translations: [Viral infection, unspecified] Onset: 06-18-2023 Episodic Past or Other Problems Problem Classification Problem Date Documented Da te Episodic/Chronic Nausea and vomiting (10 sources) Nausea; Translations: [Nausea] Onset: 11-27-2022 11-27-2022 Episodic Results Test Name Value Interpretation Reference Range Facility Urinalysis macro (dipstick) panel (U)on 03-30-2024 Bilirubin, UA Negative Negative - 4(70) +++ mg/dL [facility] Blood, UA Negative Negative - 50 Jb/mcL [facility] Clarity, UA Clear [facility] Color, UA Yellow [facility] Glucose, UA Negative Negative - 1999(110) ++++ mg/dL [facility] Interpretation and review of laboratory results Normal [facility] Ketones, UA Negative Negative - 160(16) ++++ mg/dL [facility] Leukocytes, UA Negative Negative - 500+++ Josh/mcL [facility] Nitrite, UA Negative Negative - Positive [facility] pH, UA 6.5 5 - 9 [facility] Protein, UA Negative Negative - 2000(20) ++++ mg/dL [facility] Spec Grav, UA 1.025 1 - 1.03 [facility] Urobilinogen, UA 1.0 0.2 - 12 mg/dL [facility] UA (CLEAN/CATCH) EGYPTOLOGIST/OBDULIO RO IF IND.on 03-26-2024 BILIRUBIN URINE Negative NEGATIVE [facility] BLOOD URINE Negative NEGATIVE [facility] Clarity (U) CLEAR CLEAR [facility] Color (U) LT. YELLOW YELLOW [facility] GLUCOSE URINE UA Negative NEGATIVE mg/dL [facility] Interpretation and review of laboratory results Abnormal [facility] Ketones Ql (U) 15 mg/dL Abnormal NEGATIVE [facility] Leukocyte esterase Test strip Ql (U) TRACE Abnormal NEGATIVE [facility] NITRITE URINE Negative NEGATIVE [facility] pH (U) 7.5 [pH] 5.0 - 9.0 [facility] PROTEIN URINE Negative NEG/TRACE mg/dL [facility] SPECIFIC GRAVITY URINE 1.010 1.005 - 1.025 [facility] URINE MICROSCOPIC INDICATED YES [facility] UROBILINOGEN URINE 0.2 EU/dL 0.2 - 1.0 EU/dL [facility] Urinalysis macro (dipstick) panel (U)on 03-19-2024 Bilirubin, UA Negative Negative - 4(70) +++ mg/dL [facility] Blood, UA Negative Negative - 50 Jb/mcL [facility] Clarity, UA Cloudy [facility] Color, UA Yellow [facility] Glucose, UA Negative Negative - 1999(110) ++++ mg/dL [facility] Interpretation and review of laboratory results Abnormal [facility] Ketones, UA Negative Negative - 160(16) ++++ mg/dL [facility] Leukocytes, UA Positive Negative - 500+++ Josh/mcL [facility] Comment on above: small Nitrite, UA Negative Negative - Positive [facility] pH, UA 7.0 5 - 9 [facility] Protein, UA Negative Negative - 1999(20) ++++ mg/dL [facility] Spec Grav, UA 1.020 1 - 1.03 [facility] Urobilinogen, UA 0.2 0.2 - 12 mg/dL [facility] Nursing Assessmenton 023 Nursing Assessment [id number] #1.00CD:127 Normal [facility] Discharge Instructionson Discharge Instructions [id number] #1.00CD:127 Normal [facility] C Urineon 10-20-2022 Bacteria identified Cx [...] Locations R1: This test was performed at: [facility], [address] [place] [address], [phone]- , , [facility] Comment on above: Performed By: #### 2 [id number], [id number], [id number] ####[facility] [address] [place] [address] Cortisolon 10-20-2022 Cortisol [Mass/Vol] 18.4 microgram/dL Invalid Interpretation Code 6.2-19.4 [facility] Comment on above: Result Comment: Yudith jeter Note: The reference interval and flagging for this test is for an AM collection. If this is a PM collection please use: Cortisol PM: 2.3-11.9 Performed at: [facility] [address] [id number] PhD Buck Montes Performed By: #### 2 [id number] #### [facility] [address] [place] [address] Auto Diffon 10-19-2022 Basophils/100 WBC (Bld) 0.4 % Normal 0.0-2.0 [facility] Comment on above: Order Comment: Order Added by Discern Expert. Performed By: #### 2 056581 #### [facility] [address] [place] [address] Basophils/Leukocytes Auto (Bld) [Pure # fraction] 0.1 E9/L Normal 0.0-0.2 [facility] Comment on above: Order Comment: Order Added by Discern Expert. Performed By: #### 2 551647 #### [facility] [address] [place] [address] Eosinophils/100 WBC (Bld) 0.6 % Normal 0.0-8.0 [facility] Comment on above: Order Comment: Order Added by Discern Expert. Performed By: #### 2 776823 #### [facility] [address] [place] [address] Eosinophils/Leukocytes Auto (Bld) [Pure # fraction] 0.1 E9/L Normal 0.0-0.5 [facility] Comment on above: Order Comment: Order Added by Discern Expert. Performed By: #### 2 982453 #### [facility] [address] [place] [address] Lymphocytes/100 WBC (Bld) 12.3 % Low 14.0-50.0 [facility] Comment on above: Order Comment: Order Added by Discern Expert. Performed By: #### 2 780353 #### [facility] [address] [place] [address] Lymphocytes/Leukocytes Auto (Bld) [Pure # fraction] 2.0 E9/L Normal 1.0-4.0 [facility] Comment on above: Order Comment: Order Added by Discern Expert. Performed By: #### 2 855152 #### [facility] [address] [place] [address] Monocytes/100 WBC (Bld) 8.5 % Normal 4.0-14.0 [facility] Comment on above: Order Comment: Order Added by Discern Expert. Performed By: #### 2 203612 #### [facility] [address] [place] [address] Monocytes/Leukocytes Auto (Bld) [Pure # fraction] 1.4 E9/L High 0.2-1.0 [facility] Comment on above: Order Comment: Order Added by Discern Expert. Performed By: #### 2 851695 #### [facility] [address] [place] [address] Neutrophils/100 WBC (Bld) 78.2 % High 36.0-75.0 [facility] Comment on above: Order Comment: Order Added by Discern Expert. Performed By: #### 2 457043 #### [facility] [address] [place] [address] Neutrophils/Leukocytes Auto (Bld) [Pure # fraction] 12.7 E9/L High 2.0-7.5 [facility] Comment on above: Order Comment: Order Added by Discern Expert. Performed By: #### 2 596794 #### [facility] [address] [place] [address] BMPon 10-19-2022 Anion gap [Moles/Vol] 10 mmol/L Normal 6-16 [facility] Comment on above: Performed By: #### 2 799819 #### [facility] [address] [place] [address] Calcium [Mass/Vol] 8.0 mg/dL Low 8.9-11.1 [facility] Comment on above: Performed By: #### 2 053455 #### [facility] [address] [place] [address] Chloride [Moles/Vol] 106 mmol/L Normal 101-111 [facility] Comment on above: Performed By: #### 2 396233 #### [facility] [address] [place] [address] CO2 [Moles/Vol] 23 mmol/L Normal 21-31 [facility] Comment on above: Performed By: #### 2 530059 #### [facility] [address] [place] [address] Creatinine [Mass/Vol] 0.5 mg/dL Normal 0.5-1.3 [facility] Comment on above: Performed By: #### 2 264149 #### [facility] [address] [place] [address] Glucose [Mass/Vol] 82 mg/dL Normal 55-199 [facility] Comment on above: Result Comment: If t his glucose result represents a fasting glucose, interpretation should refer to the following reference range: 55-99 mg/dL Performed By: #### 2 734295 #### [facility] [address] [place] [address] Potassium [Moles/Vol] 3.6 mmol/L Normal 3.5-5.3 [facility] Comment on above: Performed By: #### 2 318874 #### [facility] [address] [place] [address] Sodium [Moles/Vol] 135 mmol/L Normal 135-145 [facility] Comment on above: Performed By: #### 2 190237 #### [facility] [address] [place] [address] Urea nitrogen [Mass/Vol] 5 mg/dL Normal 5-21 [facility] Comment on above: Performed By: #### 2 160048 #### [facility] [address] [place] [address] Urea nitrogen/Creatinine [Mass ratio] 10 No Units Normal 10-20 [facility] Comment on above: Performed By: #### 2 918198 #### [facility] [address] [place] [address] CBC w/ Auto Diffon 3 Erythrocyte distribution width (RBC) [Ratio] 13.6 % Normal 10.9-14.2 [facility] Comment on above: Performed By: #### 2 860473 #### [facility] [address] [place] [address] Hematocrit (Bld) [Volume fraction] 34.1 % Normal 34.0-46.0 [facility] Comment on above: Performed By: #### 2 002859 #### [facility] [address] [place] [address] Hemoglobin (Bld) [Mass/Vol] 11.3 g/dL Low 12.0-16.0 [facility] Comment on above: Performed By: #### 2 998678 #### [facility] [address] [place] [address] MCH (RBC) [Entitic mass] 30.3 pg Normal 27.0-34.0 [facility] Comment on above: Performed By: #### 2 033537 #### [facility] [address] [place] [address] MCHC (RBC) [Mass/Vol] 33.2 g/dL Normal 31.4-36.0 [facility] Comment on above: Performed By: #### 2 855499 #### [facility] [address] [place] [address] MCV (RBC) [Entitic vol] 91.3 fL Normal 80.0-100.0 F [facility] Comment on above: Performed By: #### 2 342476 #### [facility] [address] [place] [address] Platelet mean volume (Bld) [Entitic vol] 8.9 fL Normal 6.4-10.8 [facility] Comment on above: Performed By: #### 2 515795 #### [facility] [address] [place] [address] Platelets (Bld) [#/Vol] 146.0 E9/L Low 150.0-500.0 [facility] Comment on above: Performed By: #### 2 723725 #### [facility] [address] [place] [address] RBC (Bld) [#/Vol] 3.7 E12/L Low 4.3-5.9 [facility] Comment on above: Performed By: #### 2 925037 #### [facility] [address] [place] [address] WBC corrected for nucl RBC Auto (Bld) [#/Vol] 16.3 E9/L High 4.0-11.0 [facility] Comment on above: Performed By: #### 2 185348 #### [facility] [address] [place] [address] CHEMISTRYOrdered By: SYSTEM SYSTEM on 10-19-2022 Anion [...] Pending Diagnostic Test Results None [facility] Follow Up Appointments after Discharge Follow Up with Isreal MOSS, Sahil Fuller When: Within 2 weeks Where: [address] [place] [phone] Follow Up with Roslyn Valdes MD, [facility] When: Within 2 to 4 days Where: [phone] Medications What How Much When Instructions Next Dose New cephalexin (Keflex 500 mg Cap) 1 Capsules By Mouth Every 6 hours Duration: 4 Days Pickup at [facility] Pharmacy Information [facility]: [address] [place], [place] [id number] [phone] What How Much When Comments Stop Taking [...] condition include: (more content not included)... Normal [facility] ED Clinical Summaryon 2022 ED Clinical Summary [place] [id number] ED Clinical Summary Person Information Name: SIDNEY CANDELARIO [facility] Age: 22 Years : 2000 Sex: Female Language: Danish PCP: Roslyn Valdes MD Marital Status: Visit [...] 22:10:25 10/18/2022 22:10:25 10/18/2022 22:10:25 ADDRESS: [address] [place] [phone] PHYS DOC NOTES: MEDICAL INFORMATION: Prescriptions Given: Medications to Continue with No Changes Other Medications ibuprofen (ibuprofen 400 mg Tab) 1 Tablets By Mouth every 6 hours as needed for pain. Refills: 0. PATIENT EDUCATION INFORMATION: Instructions: Follow up: DIAGNOSIS: 1:Near syncope; 2:UTI (urinary tract infection); 3:Hypokalemia; Elevated troponin Normal [facility] ED Patient Education Noteon 10-19-2022 ED Patient Education Note Normal [facility] ED Patient Summaryon 023 ED Patient Summary [place] [id number] Patient Discharge Instructions Person Information Name: SIDNEY CANDELARIO Age: 22 Years Arrival Date: 10/18/2022 13:27:27 Discharge Diagnosis: 1:Near syncope; 2:UTI (urinary tract infection); 3:Hypokalemia; Elevated troponin Primary Care Physician: Roslyn Valdes MD Provider Information Primary Provider: Favian Ahumada DO Advanced Sighter:None The exam and treatment you received in the Emergency Department were for an urgent problem and are not intended as complete care. It is important that you follow up with a doctor, nurse practitioner, or physician?s medical administrative assistant for ongoing care. If your symptoms [...] opioids can be used to help relieve pvwxqfzq-aj-yqnuwg pain and are often prescribed following a [...] be struggling with addiction, tell your health point of care technician and ask for guidance or call [facility]?S National Helpline at 0-816-895-RXNG. l Source: [place] Department of Health and Human Services/Center for Disease Control & Prevention [facility] (more content not included)... Normal [facility] HEMATOLOGYOrdered By: SYSTEM SYSTEM on 10-19-2022 [...] Inpatient Clinical Summaryon 10-19-2022 Inpatient Clinical Summary [place] [id number] Clinical Summary Person Information: Name: SIDNEY CANDELARIO Age: 22 Years : 2000 Sex: Female PCP: Roslyn Valdes MD Marital Status: Race: White Ethnicity: Non- or Language: Danish Visit Id: Visit Reason: Dizziness; UTI, NEAR SYNCOPE, HYPOKALEMIA Speciality: Acuity: Enc Type: Observation Med Service: Medical Arrival: 10/18/2022 13:27:27 Discharge: Dispo Type: Address: [address] [place] [phone] Provider Notes: Diagnosis: 1:Near syncope; 2:UTI (urinary [...] up: With: Address: When: Roslyn Valdes MD, [facility], [facility] [phone] Within 2 to 4 days Patient Education Information: Normal [facility] Inpatient Patient Summaryon 10-19-2022 Inpatient Patient Summary [address] [address] Patient Discharge Instructions PERSON INFORMATION Name: SIDNEY CANDELARIO Date of : 2000 Current Date: 10/19/2022 09:40:25 PHYSICIANS Admitting Physician: Cristin MOSS, Jona Rivera Primary Care Physician: Roslyn Valdes MD PCP Phone Number: [phone] Comment: Discharge Diagnosis: 1:Near syncope; 2:UTI (urinary [...] up: With: Address: When: Roslyn Valdes MD, [facility], [facility] [phone] Within 2 to 4 days In the [...] for pain. Refills: 0. Pharmacy Information: [facility] Comment: PATIENT EDUCATION INFORMATION Instructions: Medication Leaflets: You may receive a survey from [employer] asking you to rate your care experience. Your feedback is important and will help us understand what we do well and how we can improve the quality of care we provide to you, your loved ones and our community. It?s an honor to serve you. Thank you for choosing [facility] Normal [facility] Interdisciplinary Note - Chrsit e Manageron 10-19-2022 Interdisciplinary Note - Bender Machine Operator Pt is awake and alert in bed, previously rounded with Dr. Amaral. Spouse at bedside, Pt is aware of plan for scan today and plan to DC home later today. Declines any concerns or DC needs. Observation status reviewed. PCP verified and insurance information reviewed and DME discussed. Contact information provided and white board updated. Normal [facility] Comment on above: Result Comment: Elec tronically Signed By: Heraclio GRAFF, Sayda\.rafael\Date and Time Signed: 10/19/22 11:06 EDT Magnesiumon 10-19-2022 Magnesium [Mass/Vol] 1.7 mg/dL Normal 1.3-2.4 [facility] Comment on above: Performed By: #### 2 660972 #### [facility] [address] [place] [address] Monitor Recordon 10-19-2022 Monitor Record [id number]#1.00CD:127 Normal [facility] Monitor Record [id number]#1.00CD:127 Normal [facility] Monitor Record [id number]#1.00CD:127 Normal [facility] Monitor Record [id number]#1.00CD:127 Normal [facility] Patient Education - Texton 0 10-19-2022 [...] these instructions at home: Medicines ? Take qlwm-uxi-rkddhny and prescription medicines only as told by [...] provider. Document Revised: 10/05/2021 Document Reviewed: 10/05/2021 [employer] Patient Education ? 2022 [employer]. Obstetrics and Gynecology Urinary Tract Infection, Adult [...] (neurogenic bladder). (more content not included)... Normal [facility] Phosphoruson 10-19-2022 Phosphate [Mass/Vol] 3.8 mg/dL Normal 1.9-4.6 [facility] Comment on above: Performed By: #### 2 887449 #### [facility] [address] [place] [address] Progress Note-Physicianon Progress Note-Physician Basic Informatio n [...] drug abuse. ED physician discussed case with elementary art teacher Dr. Butler and STITCH CLEANER Dr. Mortensen. Telemetry monitoring and echocardiogram was [...] made to ensure accuracy, however, inadvertently computerized hand former helper mistakes may be present. Dr. Jona Amaral [...] Lymph Auto: 12.3 % Low (10/19/22 05:47:00) Callahan Auto: 8.5 % (10/19/22 05:47:00) Eos Auto: 0.6 % (10/19/22 05:47:00) Basophil Auto: 0.4 % (10/19/22 05:47:00) Neutro Absolute: 12.7 E9/L High (10/19/22 05:47:00) Lymph Absolute: 2 E9/L (10/19/22 05:47:00) Callahan Absolute: 1.4 E9/L High (10/19/22 05:47:00) Eos [...] 05:47:00) Magnesium (more content not included)... Normal [facility] Comment on above: Result Comment: Elec tronically Signed By: Cristin MOSS, Jona Rivera\.br\Date and Time Signed: 10/19/22 12:08 EDT Troponin 9 Hr.on 10-19-2022 Troponin I.cardiac [Mass/Vol] 48.10 pg/mL Abnormal 10.10-27.10 [facility] Comment on above: Order Comment: pt is not discharged despite the discharge status. pt is in room 302; third shift phleb was notified not to cancel pending orders. [id number] 10/18/2022 22:15:32 EDT Result Comment: Crit ical [...] High Sensitivity Troponin I Instructions For Use, FID3, January 2018) Performed By: #### 1 [id number] #### [facility] [address] [place] [address] eGFRon 10-19-2022 GFR/1.73 sq M.predicted among non-blacks MDRD (S/P/Bld) [Vol rate/Area] 138 mL/min/1.73 m2 Normal >=59 [facility] Comment on above: Order Comment: Order added by Discern Expert. Result Comment: House Moving Supervisor sydnie kidney disease could be indicated at eGFR's of less than 60 mL/min/1.73m2. Kidney failure is indicated at less than 15 mL/min/1.73m2. Performed By: #### 2 216957 #### [facility] [address] [place] [address] Acetamnphn Lvlon 10-18-2022 Acetaminophen [Mass/Vol] ug/mL Low 15-30 [facility] Comment on above: Performed By: #### 1 [id number], 8035134, 8926300, 60374579, 3816954, 46452936, 77621575, 1952955, 6481865 ####[facility] [address] [place] [address] Auto Diffon 10-18-2022 Basophils/100 WBC (Bld) 0.6 % Normal 0.0-2.0 [facility] Comment on above: Order Comment: Order Added by Discern Expert. Performed By: #### 1 1767461, 6237619, 3114868, 79055233, 3221894, 35935519, 62970653, 7132046, 5319024 ####[place] [address] [place] [address] Basophils/Leukocytes Auto (Bld) [Pure # fraction] 0.1 E9/L Normal 0.0-0.2 [facility] Comment on above: Order Comment: Order Added by Discern Expert. Performed By: #### 1 1924577, 5107981, 9085167, 91583634, 7415742, 16750855, 00606712, 5287745, 1146193 ####[facility] [address] [place] [address] Eosinophils/100 WBC (Bld) 0.5 % Normal 0.0-8.0 [facility] Comment on above: Order Comment: Order Added by Discern Expert. Performed By: #### 1 3803395, 4547447, 0642088, 88453095, 2726465, 17337463, 25052439, 2435529, 9030075 ####[facility] [address] [place] [address] Eosinophils/Leukocytes Auto (Bld) [Pure # fraction] 0.1 E9/L Normal 0.0-0.5 [facility] Comment on above: Order Comment: Order Added by Discern Expert. Performed By: #### 1 7764782, 3412576, 4653733, 27740355, 5539966, 51202364, 62991651, 4192455, 1266224 ####[place] [address] [place] [address] Lymphocytes/100 WBC (Bld) 11.2 % Low 14.0-50.0 [facility] Comment on above: Order Comment: Order Added by Discern Expert. Performed By: #### 1 1929061, 9982876, 4157607, 03112799, 6982141, 93752389, 04084587, 8889276, 3588694 ####[facility] [address] [place] [address] Lymphocytes/Leukocytes Auto (Bld) [Pure # fraction] 1.8 E9/L Normal 1.0-4.0 [facility] Comment on above: Order Comment: Order Added by Linda Expert. Performed By: #### 1 1328914, 4112902, 3016201, 15616901, 9851555, 74455486, 88271602, 4158429, 7821483 ####[facility] [address] [place] [address] Monocytes/100 WBC (Bld) 8.3 % Normal 4.0-14.0 [facility] Comment on above: Order Comment: Order Added by Linda Expert. Performed By: #### 1 4462159, 6619514, 3362844, 27307451, 0938156, 13373060, 10220503, 8068510, 8720350 ####[place] [address] [place] [address] Monocytes/Leukocytes Auto (Bld) [Pure # fraction] 1.3 E9/L High 0.2-1.0 [facility] Comment on above: Order Comment: Order Added by Linda Expert. Performed By: #### 1 5746215, 9779633, 9458756, 59668018, 4115281, 74539522, 28302750, 5371592, 1904957 ####[facility] [address] [place] [address] Neutrophils/100 WBC (Bld) 79.4 % High 36.0-75.0 [facility] Comment on above: Order Comment: Order Added by Linda Expert. Performed By: #### 1 1267861, 0122750, 1895276, 43938391, 3344749, 36842915, 56040195, 0199183, 4307679 ####[facility] [address] [place] [address] Neutrophils/Leukocytes Auto (Bld) [Pure # fraction] 12.5 E9/L High 2.0-7.5 [facility] Comment on above: Order Comment: Order Added by Discern Expert. Performed By: #### 1 0878515, 4815440, 0582686, 60403661, 5066038, 71459915, 04859991, 6007281, 6121009 ####[facility] [address] [place] [address] BMPon 10-18-2022 Creatinine [Mass/Vol] 0.5 mg/dL Normal 0.5-1.3 [facility] Comment on above: Performed By: #### 1 5202562, 4424314, 7344039, 13276309, 1313392, 81977020, 42653689, 2288933, 3006548 #### [facility] [address] [place] [address] Urea nitrogen [Mass/Vol] 7 mg/dL Normal 5-21 [facility] Comment on above: Performed By: #### 1 2309435, 2720959, 9721434, 94561461, 5611098, 46151777, 81923527, 3418238, 6383847 #### [facility] [address] [place] [address] Urea nitrogen/Creatinine [Mass ratio] 14 No Units Normal 10-20 [facility] Comment on above: Performed By: #### 1 5399125, 0146078, 9981918, 57270230, 0459074, 04812262, 45028856, 6022531, 8422004 #### [facility] [address] [place] [address] Anion gap [Moles/Vol] 11 mmol/L Normal 6-16 [facility] Comment on above: Performed By: #### 1 0016657, 1740559, 5874853, 39386251, 5565094, 10569878, 85241491, 6462451, 1200743 #### [facility] [address] [place] [address] Calcium [Mass/Vol] 8.7 mg/dL Low 8.9-11.1 [facility] Comment on above: Performed By: #### 1 9769290, 4693915, 2007574, 14812487, 2677961, 63437326, 83307245, 4670845, 6237545 #### [facility] [address] [place] [address] Chloride [Moles/Vol] 102 mmol/L Normal 101-111 [facility] Comment on above: Performed By: #### 1 2988972, 2630627, 5887202, 21882919, 0360352, 92443664, 01119260, 8378209, 1676929 #### [facility] [address] [place] [address] CO2 [Moles/Vol] 26 mmol/L Normal 21-31 [facility] Comment on above: Performed By: #### 1 4607751, 7763083, 1902218, 58191392, 2674036, 73132941, 76976799, 8888354, 0452202 #### [facility] [address] [place] [address] Glucose [Mass/Vol] 97 mg/dL Normal 55-199 [facility] Comment on above: Result Comment: If t his glucose result represents a fasting glucose, interpretation should refer to the following reference range: 55-99 mg/dL Performed By: #### 1 8468628, 2422448, 3151116, 23307988, 5328903, 03683198, 51457719, 8748497, 6088199 #### [facility] [address] [place] [address] Potassium [Moles/Vol] 3.3 mmol/L Low 3.5-5.3 [facility] Comment on above: Performed By: #### 1 6342844, 2719736, 3417258, 78269519, 3340533, 25308586, 37706408, 6570386, 8826941 #### [facility] [address] [place] [address] Sodium [Moles/Vol] 136 mmol/L Normal 135-145 [facility] Comment on above: Performed By: #### 1 2712075, 1066080, 7368651, 18860892, 7796271, 87050851, 01074302, 2722525, 7810741 #### [facility] [address] [place] [address] CBC w/ Auto Diffon 3 Erythrocyte distribution width (RBC) [Ratio] 13.8 % Normal 10.9-14.2 [facility] Comment on above: Performed By: #### 1 4016402, 5890573, 6176791, 60674765, 1190795, 02826011, 05935308, 3205773, 3970547 #### [facility] [address] [place] [address] Hematocrit (Bld) [Volume fraction] 37.4 % Normal 34.0-46.0 [facility] Comment on above: Performed By: #### 1 7613862, 1178872, 6727973, 80835938, 5708280, 17289447, 68944025, 8882165, 9133125 #### [facility] [address] [place] [address] Hemoglobin (Bld) [Mass/Vol] 12.5 g/dL Normal 12.0-16.0 [facility] Comment on above: Performed By: #### 1 6863012, 2133007, 3849568, 74487010, 9775156, 55928998, 46210760, 6955181, 5429653 #### [facility] [address] [place] [address] MCH (RBC) [Entitic mass] 30.1 pg Normal 27.0-34.0 [facility] Comment on above: Performed By: #### 1 6430684, 2293715, 9100148, 50113530, 1786336, 52336504, 02816816, 5919874, 4012767 #### [facility] [address] [place] [address] MCHC (RBC) [Mass/Vol] 33.6 g/dL Normal 31.4-36.0 [facility] Comment on above: Performed By: #### 1 4101755, 3992777, 1771473, 61476139, 7328584, 67624291, 17807154, 8304925, 0759334 #### [facility] [address] [place] [address] MCV (RBC) [Entitic vol] 89.7 fL Normal 80.0-100.0 [facility] Comment on above: Performed By: #### 1 4719163, 3983992, 6615812, 37657041, 1150858, 46414416, 29172501, 9737092, 9591246 #### [facility] [address] [place] [address] Platelet mean volume (Bld) [Entitic vol] 9.2 fL Normal 6.4-10.8 [facility] Comment on above: Performed By: #### 1 9001720, 9923523, 3663457, 36158362, 3740744, 73058282, 04861923, 3906144, 2956375 #### [facility] [address] [place] [address] Platelets (Bld) [#/Vol] 146.0 E9/L Low 150.0-500.0 [facility] Comment on above: Performed By: #### 1 7323878, 2373538, 1025872, 66559390, 4056860, 06652897, 12405499, 9989060, 9003205 #### [facility] [address] [place] [address] RBC (Bld) [#/Vol] 4.2 E12/L Low 4.3-5.9 [facility] Comment on above: Performed By: #### 1 0514048, 3764630, 3149600, 10102546, 7726169, 66177190, 16637260, 0996901, 2122257 #### [facility] [address] [place] [address] WBC corrected for nucl RBC Auto (Bld) [#/Vol] 15.8 E9/L High 4.0-11.0 [facility] Comment on above: Result Comment: Slid e reviewed by 10/18/2022 15:09:43 EDT. Performed By: #### 1 0915559, 3202411, 8140843, 14251149, 5428126, 41880322, 97386058, 6378686, 7578036 #### [facility] [address] [place] [address] CHEMISTRYOrdered By: SYSTEM SYSTEM on 10-18-2022 Ethanol [...] Called to DAVIDA TAYLOR at ER by VAELRIA ROGERS and read back for confirmation at [...] 25.8 s Normal 25.1 - 36.5 second(s) [facility] Auto Coag INR Coag (PPP) [Relative time] 1.0 {INR} Invalid Interpretation Code [facility] Auto Coag PT Coag (PPP) [Time] 10.8 s Normal 9.4 - 1 2.5 second(s) [facility] Auto Coag Consent for Treatmenton 10-08 Consent for Treatment [id number] #1.00CD:127 Normal [facility] ED Note-Physicianon 10-19-19 23 ED Note-Physician Basic Information Time Seen: Diego THOMAS Favian M. 10/18/2022 14:07 Chief Complaint pt reports being [...] evaluated: Not applicable Discussed with: Dr. Mortensen, STITCH CLEANER. Dr. Butler, cardiology. Dr. Calhoun, Hospitalist. Treatment [...] tachycardia. I will call and discuss with STITCH CLEANER and cardiology. (more content not included)... Normal [facility] Comment on above: Result Comment: Elec tronically Signed By: Favian Ahumada DO\.br\Date and Time Signed: 10/18/22 19:58 EDT Ethanolon 10-18-2022 Ethanol [Mass/Vol] mg/dL Normal <=7 [facility] Comment on above: Performed By: #### 2 459763 ####[facility] [address] [place] [address] HEMATOLOGYOrdered By: SYSTEM SYSTEM on 10-18-2022 Basophils/100 [...] Nom (U) 100 cfu/ml Mixed skin contaminants [facility] Monitor Recordon 10-18-2022 Monitor Record [id number]#1.00CD:127 Normal [facility] Monitor Record [id number]#1.00CD:127 Normal [facility] Monitor Record [id number]#1.00CD:127 Normal [facility] PT & PTTon 10-18-2022 aPTT Coag (PPP) [Time] 25.8 second(s) Normal 25.1-36.5 [facility] Comment on above: Result Comment: Para [...] the same coagulation reagent and instrumentation as [facility]. Currently there are no coagulation studies available worldwide for children to 14 days, and no normal ranges. Heparin therapeutic range (represented by Anti-Factor Xa activity of 0.2 - 0.4 U/mL) corresponds to PTT of 56.6 - 109.0 sec. Performed By: #### 1 1075881, 6330815, 3433527, 44776019, 7201050, 87142353, 69076739, 3776809, 8489894 #### [facility] [address] [place] [address] INR Coag (PPP) [Relative time] 1.0 {INR} Invalid Interpretation Code [facility] Comment on above: Result Comment: INR results are specifically intended to assess patients stabilized on long-term Anticoagulation therapy suggested INR?s ?Less Intensive Anticoagulation? 2.0 ? 3.0 Conventional Range 3.0 ? 4.5 Performed By: #### 1 4083000, 5567067, 8767701, 82543675, 1254347, 27666509, 76241613, 2797904, 6998300 #### [facility] [address] [place] [address] PT Coag (PPP) [Time] 10.8 second(s) Normal 9.4-12.5 [facility] Comment on above: Result Comment: 15 [...] the same coagulation reagent and instrumentation as [facility]. Currently there are no coagulation studies available worldwide for children to 14 days, and no normal ranges. Performed By: #### 1 6597928, 0967675, 3726744, 66455724, 0422047, 10049379, 03530131, 7725784, 9213931 #### [facility] [address] [place] [address] Progress Note-Nurseon 2022 Progress Note-Nurse Patient: SIDNEY CANDELARIO Age: 22 years Sex: Female : 2000 Associated Diagnoses: None Author: Mell GRAFF, Meghna 25 week GI P0 in ER. heart tracing times 10 minutes obtained. Baseline 150bpm, moderate variability with accelerations increasing to 160. Audible movement. Pt states she can feel movement. Normal [facility] Salicylateon 10-18-2022 Salicylates [Mass/Vol] mg/dL Low 6-29 [facility] Comment on above: Performed By: #### 1 0072923, 5679097, 8424327, 95112731, 2202779, 41235040, 87990514, 1861942, 2535712 ####[facility] [address] [place] [address] TSH With T4fr Reflexon 10-18 TSH Qn 1.50 m[IU]/L Normal 0.34-5.60 [facility] Comment on above: Performed By: #### 1 4512612, 6420664, 0606479, 92161054, 6499458, 14194284, 25572225, 6095864, 8585240 ####[facility] [address] [place] [address] Troponinon 10-18-2022 Troponin I.cardiac [Mass/Vol] 47.10 pg/mL Abnormal 10.10-27.10 [facility] Comment on above: Result Comment: Crit [...] High Sensitivity Troponin I Instructions For Use, FID3, January 2018) Performed By: #### 2 207934 #### [facility] [address] [place] [address] Troponin 0 Hr.on 10-18-2022 Troponin I.cardiac [Mass/Vol] 42.20 pg/mL Abnormal 10.10-27.10 [facility] Comment on above: Result Comment: Crit [...] High Sensitivity Troponin I Instructions For Use, FID3, January 2018) Performed By: #### 1 1566076, 4428991, 5546964, 25237474, 2982271, 89451176, 86132293, 7411499, 5170890 ####[facility] [address] [place] [address] Troponin 3 Hr.on 10-18-2022 Troponin I.cardiac [Mass/Vol] 49.60 pg/mL Abnormal 10.10-27.10 [facility] Comment on above: Result Comment: Crit [...] conjunction with clinical conditions of myocardial infarction. ([employer] High Sensitivity Troponin I Instructions For Use, FID3, January 2018) Performed By: #### 1 7283104 #### [facility] [address] [place] [address] Troponin 6 Hr.on 10-18-2022 Troponin I.cardiac [Mass/Vol] 53.00 pg/mL Abnormal 10.10-27.10 [facility] Comment on above: Result Comment: Crit [...] High Sensitivity Troponin I Instructions For Use, FID3, January 2018) Performed By: #### 1 5357931 #### [facility] [address] [place] [address] U Drug Screenon 10-18-2022 Amphetamines Screen method >1000 ng/mL Ql (U) Negative Normal Negative [facility] Comment on above: Result Comment: Nega tive Cutoff: <1000 ng/mL Performed By: #### 2 920810, 1376571, 22146306 ####[facility] [address] [place] [address] Barbiturates Screen Ql (U) Negative Normal Negative [facility] Comment on above: Result Comment: Nega tive Cutoff: <200 ng/mL Performed By: #### 2 971834, 5612249, 87677933 ####[facility] [address] [place] [address] Benzodiazepines Ql (U) Negative Normal Negative [facility] Comment on above: Result Comment: Nega tive Cutoff: <200 ng/mL Performed By: #### 2 170821, 0850042, 06613758 ####[facility] [address] [place] [address] Cocaine Ql (U) Negative Normal Negative [facility] Comment on above: Result Comment: Nega tive Cutoff: <300 ng/mL Performed By: #### 2 033357, 2719428, 95314965 ####[facility] [address] [place] [address] Opiates Screen Ql (U) Negative Normal Negative [facility] Comment on above: Result Comment: Nega tive Cutoff: <300 ng/mL Performed By: #### 2 585510, 2304432, 91275993 ####[address] [place] [address] Phencyclidine Screen method >25 ng/mL Ql (U) Negative Normal Negative [facility] Comment on above: Result Comment: Nega tive Cutoff: <25 ng/mL These drug screen results are to be used for medical (i.e., treatment) purposes only. Unconfirmed drug screening results must not be used for non-medical purposes (e.g., employment testing, legal testing). Performed By: #### 2 660577, 3642886, 81197271 ####[facility] [address] [place] [address] Tetrahydrocannabinol Screen method >50 ng/mL Ql (U) Negative Normal Negative [facility] Comment on above: Result Comment: Nega tive Cutoff: <50 ng/mL Performed By: #### 2 987858, 3184896, 17403794 ####[facility] [address] [place] [address] UA With Cult Reflexon 2022 Bacteria LM Ql (Urine sed) 2+ /HPF Abnormal Trace [facility] Comment on above: Performed By: #### 2 259151, 8014294, 40660976 ####[facility] [address] [place] [address] Bilirubin Ql (U) Negative Normal Negative [facility] Comment on above: Performed By: #### 2 708797, 5919189, 41000800 ####[facility] [address] [place] [address] Clarity (U) SL CLOUDY Abnormal Clear [facility] Comment on above: Performed By: #### 2 174428, 6779393, 15267309 ####[facility] [address] [place] [address] Color (U) YELLOW Normal Yellow [facility] Comment on above: Performed By: #### 2 670601, 2324293, 98950503 ####[facility] [address] [place] [address] Epithelial cells.squamous LM.HPF (Urine sed) [#/Area] /[HPF] Normal 0-2 [facility] Comment on above: Performed By: #### 2 931432, 3442653, 32333990 ####[facility] [address] [place] [address] Glucose Test strip (U) [Mass/Vol] Negative Normal Negative [facility] Comment on above: Performed By: #### 2 715805, 4058256, 52355993 ####[facility] [address] [place] [address] Hemoglobin Ql (U) Negative Normal Negative [facility] Comment on above: Performed By: #### 2 829322, 6263087, 82617839 ####[facility] [address] [place] [address] Ketones (U) [Mass/Vol] Negative Normal Negative [facility] Comment on above: Performed By: #### 2 488603, 2251513, 40853270 ####[address] [place] [address] [place].plasma/[place].R BC (Bld) [Mass ratio] 4-20 Normal 0-3 [facility] Comment on above: Performed By: #### 2 065909, 2799529, 32881144 ####[address] [address] Nitrite Ql (U) Negative Normal Negative [facility] Comment on above: Performed By: #### 2 204356, 3741303, 75192544 ####[address] [address] pH (U) 6.5 [pH] Invalid Interpretation Code 5.0-9.0 [facility] Comment on above: Performed By: #### 2 099655, 2200031, 36422358 ####[address] [address] Protein (U) [Mass/Vol] Negative Normal Negative [facility] Comment on above: Performed By: #### 2 798566, 2229272, 69115966 ####[address] [address] Specific gravity (U) [Rel density] 1.015 Invalid Interpretation Code 1.005-1.030 [facility] Comment on above: Performed By: #### 2 219914, 7358822, 09135333 ####[address] [address] Type of Urine collection method Clean Catch Normal [facility] Comment on above: Performed By: #### 2 067748, 6821430, 93758878 ####[address] [address] Urobilinogen Qn (U) 0.2 {Yg'U}/dL Normal 0.0-1.0 [facility] Comment on above: Performed By: #### 2 197462, 4247186, 66605469 ####[facility] [address] [place] [address] WBC Auto Ql (U) 1+ Abnormal Negative [facility] Comment on above: Performed By: #### 2 799010, 0504091, 40356690 ####[facility] [address] [place] [address] WBC LM.HPF (Urine sed) [#/Area] 16-25 Abnormal 0-5 [facility] Comment on above: Performed By: #### 2 919994, 8762763, 60731915 ####[facility] [address] [place] [address] URINALYSISOrdered By: Citlali Rogers on 10-18-2022 Bacteria [...] PM) Normal Negative [facility] UA Auto SS [place].plasma/[place].R BC (Bld) [Mass ratio] 4-20 /HPF Normal 0-3/HPF [facility] UA Au to SS Nitrite Ql (U) Negative (10/18/22 1:37 PM) Normal Negative [facility] UA Auto SS pH (U) 6.5 *NA* (10/18/22 1:37 PM) Invalid Interpretation Code 5.0 - 9.0 [facility] UA Auto SS Protein (U) [Mass/Vol] Negative (10/18/22 1:37 PM) Normal Negative [facility] UA Auto SS Specific gravity (U) [Rel density] 1.015 *NA* (10/18/22 1:37 PM) Invalid Interpretation Code 1.005 - 1.030 [facility] UA Auto SS UA Spec Desc Clean Catch (10/18/22 1:37 PM) Normal [facility] UA Auto SS Urobilinogen Qn (U) 0.8589349 {Yg'U}/dL Normal 0.0 - 1.0 EU/dL [facility] UA Auto SS WBC Auto Ql (U) 1+ *ABN* (10/18/22 1:37 PM) Invalid Interpretation Code Negative [facility] UA Auto SS WBC LM.HPF (Urine sed) [#/Area] 16-25 /HPF Invalid Interpretation Code 0-5/HPF [facility] UA Auto SS XR Chest Single Viewon [...] mGy = na DAP = na Normal [facility] eGFRon 10-18-2022 GFR/1.73 sq M.predicted among non-blacks MDRD (S/P/Bld) [Vol rate/Area] 138 mL/min/1.73 m2 Normal >=59 [facility] Comment on above: Order Comment: Order added by Discern Expert. Result Comment: House Moving Supervisor sydnie kidney disease could be indicated at eGFR's of less than 60 mL/min/1.73m2. Kidney failure is indicated at less than 15 mL/min/1.73m2. Performed By: #### 1 0149526, 0873767, 8068957, 17681867, 6328848, 60065767, 53311016, 4678995, 3254709 #### [facility] [place] [address] US PREG ANATOMY SINGLEon US PREG ANATOMY [...] MENDEZ Date: 2022-10-08 15:26 Normal [facility] CHLAMYDIA/GONOCOCCUS TEOT (SW AB/URINE/PAPon 08-28-2022 Chlamydia trachomatis, TETO Negative Normal Negative [facility] Comment on above: Performed By: #### C T/NGNA #### [facility] [address] [address] [address] Maribell Perea Neisseria gonorrhoeae, TETO Negative Normal Negative [facility] Comment on above: Performed By: #### C T/NGNA #### [facility] [address] [place] [address] Dr. Maribell Perea VAGINITIS/VAGINOSIS DNA PROB Romeo 08-25-2022 Beatrice species Negative Normal Negative [facility] Comment on above: Performed By: #### V AGINT ####[facility] [address] [place], [place] [address]Dr. Maribell Perea Gardnerella vaginalis Negative Normal Negative [facility] Comment on above: Performed By: #### V AGINT ####[facility] [address] [place], [place] [address]Dr. Maribell Perea Trichomonas vaginalis Negative Normal Negative [facility] Comment on above: Performed By: #### V AGINT ####[facility] [address] [place], [place] [address]Dr. Maribell Perea HEP B SURFACE ANTIGEN SCREEN on 07-25-2022 HBsAg Screen Negative Normal Negative [facility] Comment on above: Performed By: #### H BSANS #### [facility] [address] [place] [address] Dr. Maribell Perea HEPATITIS C VIRUS AB W/ REFL EX QUANTon 07-25-2022 HCV AB Non-Reactive Normal Non Reactive [facility] Comment on above: Performed By: #### H CVPCRR #### [facility] [address] [place] [address] Dr. Maribell Perea Interpretation: Comment Normal [facility] Comment on above: Result Comment: Not infected with HCV unless early or acute infection is suspected (which may be delayed in an immunocompromised individual), or other evidence exists to indicate HCV infection. Performed By: #### H CVPCRR #### [facility] [address] [place] [address] Dr. Maribell Perea HIV 1 AND 2 WITH REFLEXon HIV Screen 4th Generation wRfx Non-Reactive Normal Non Reactive [facility] Comment on above: Result Comment: HIV Negative HIV-1/HIV-2 antibodies and HIV-1 p24 antigen were NOT detected. There is no laboratory evidence of HIV infection. Performed By: #### H IV12 #### [facility] [address] [address] [address] Maribell Perea RPR QUANTon 07-25-2022 Rapid Plasma Reagin, Quant Non-Reactive Normal NonRea<1:1 [facility] Comment on above: Result Comment: Plea se Note: This test does not meet current guidelines for screening and diagnosis of syphilis. This test is intended for following treatment response in patients being treated for syphilis infection. To screen for syphilis infection, a reflex cascade that includes both RPR and a treponema-specific assay should be utilized, such as Treponema pallidum (Syphilis) Screening Swisher (823077) or Rapid Plasma Reagin (RPR) Test With Reflex to Quantitative RPR and Confirmatory Treponema pallidum Antibodies (824515). Performed By: #### R PRQ #### [facility] [address] [address] [address] Maribell Perea RUBELLA AB IGGon 07-25-2022 Rubella Antibodies, IgG <0.90 Critically low Immune > 0.99 [facility] Comment on above: Result Comment: Non- immune <0.90 Equivocal 0.90 - 0.99 Immune >0.99 Performed By: #### R UBIGG #### [facility] [address] [address] [address] Maribell Perea CULTURE URINEon 07-23-2022 CULTURE URINE Culture Observations: NO GROWTH. Normal [facility] Comment on above: Performed By: #### U RCX ####[facility] [address] [address]Dr. Maribell Perea GLYCOHEMOGLOBIN A1Con 2022 ADA RECOMMENDATION SEE BELOW Normal [facility] Comment on above: Result Comment: ADA RECOMMENDED LIMIT 4.0 - 6.0 ADA THERAPEUTIC TARGET < 7.0 ACTION SUGGESTED > 7.0 Performed By: #### A 1C #### [facility] [facility] [address] [place], [place] [address] Dr. Maribell Perea Glucose [Mass/Vol] 97 mg/dL Normal [facility] Comment on above: Performed By: #### A 1C #### [facility] [address] [place], [place] [address] Dr. Maribell Perea HbA1c (Bld) [Mass fraction] 5.0 % Normal 4.5-6.2 [facility] Comment on above: Performed By: #### A 1C #### [facility] [address] [place], [place] [address] Dr. Maribell Perea BEULAH BOX TEST PT SEND OUTo n 07-23-2022 SENT TO REF LAB 07/23/2022 Normal [facility] Comment on above: Performed By: #### N BOX #### [facility] [address] [place] [address] [address] Maribell Perea TYPE AND SCREENon 07-23-2022 TYPE AND SCREEN Negative Normal [facility] Comment on above: Performed By: #### T NS ####[facility] [address] [place], [place] [address]EtDr. Maribell Perea US PREG TVon 06-28-2022 US [...] by: CAMELIA MENDEZ Date: 2022-06-28 09:17 Normal [facility] Vital Signs Date Time Vital Sign Value Performing Clinician Facility 03-30-2024 09:03-0400 Body mass index (BMI) [Ratio] 22.09 kg/m2 Irving Delores DO Work Phone: [facility] 03-30-2024 09:03-0400 Body weight 51.31 kg Irving Delores DO Work Phone: [facility] 03-30-2024 09:03-0400 Diastolic blood pressure 68 mm[Hg] Irving Delores DO Work Phone: [facility] 03-30-2024 09:03-0400 Systolic blood pressure 102 mm[Hg] Irving Delores DO Work Phone: [facility] 03-23-2024 14:30-0400 Body mass index (BMI) [Ratio] 22.85 kg/m2 Irving Delores DO Work Phone: [facility] 03-23-2024 14:30-0400 Body weight 53.07 kg Irving Delores DO Work Phone: [facility] 03-23-2024 14:30-0400 Diastolic blood pressure 70 mm[Hg] Irving Delores DO Work Phone: [facility] 03-23-2024 14:30-0400 Systolic blood pressure 106 mm[Hg] Irving Delores DO Work Phone: [facility] 03-19-2024 15:39-0400 Body mass index (BMI) [Ratio] 22.26 kg/m2 Luana VALDOVINOS Work Phone: [facility] 03-19-2024 15:39-0400 Body weight 51.71 kg Luana VALDOVINOS Work Phone: [facility] 03-19-2024 15:39-0400 Diastolic blood pressure 72 mm[Hg] Luana VALDOVINOS Work Phone: [facility] 03-19-2024 15:39-0400 Systolic blood pressure 110 mm[Hg] Luana VALDOVINOS Work Phone: [facility] 06-18-2023 15:11-0500 Blood Pressure Location [facility] 06-18-2023 15:11-0500 Body temperature 97.88 [degF] [facility] 06-18-2023 15:11-0500 Diastolic blood pressure 76 mm[Hg] [facility] 06-18-2023 15:11-0500 Heart rate 90 /min [facility] 06-18-2023 15:11-0500 SaO2% (BldA) [Mass fraction] 98 % [facility] 06-18-2023 15:11-0500 Systolic blood pressure 116 mm[Hg] [facility] 10-19-2022 13:00-0400 Hourly Rounding Jona Cristin [facility] 10-19-2022 13:00-0400 Promise to Return Jona Cristin [facility] 10-19-2022 12:23-0400 Heart rate 101 /min Jona Cristin [facility] 10-19-2022 12:23-0400 SaO2% (BldA) [Mass fraction] 98 % Jona Cristin [facility] 10-19-2022 12:23-0400 Body temperature 98.06 [degF] Jona Cristin [facility] 10-19-2022 12:23-0400 Diastolic blood pressure 65 mm[Hg] Jona Cristin [facility] 10-19-2022 12:23-0400 Mean blood pressure 77 mm[Hg] Jona Cristin [facility] 10-19-2022 12:23-0400 Systolic blood pressure 102 mm[Hg] Jona Cristin [facility] 10-19-2022 12:15-0400 Hourly Rounding Jona Cristin [facility] 10-19-2022 12:15-0400 Promise to Return Jona Cristin [facility] 10-19-2022 11:21-0400 Hourly Rounding Jona Cristin [facility] 10-19-2022 11:21-0400 Promise to Return Jona Cristin [facility] 10-19-2022 08:24-0400 Heart rate 103 /min Jona Cristni [facility] 10-19-2022 08:24-0400 SaO2% (BldA) [Mass fraction] 98 % Jona Cristin [facility] 10-19-2022 08:24-0400 Diastolic blood pressure 61 mm[Hg] Jona Cristin [facility] 10-19-2022 08:24-0400 Mean blood pressure 72 mm[Hg] Jona Cristin [facility] 10-19-2022 08:24-0400 Systolic blood pressure 93 mm[Hg] Jona Cristin [facility] 10-19-2022 08:23-0400 Body temperature 98.24 [degF] Jona Cristin [facility] 10-19-2022 05:12-0400 Heart rate 95 /min Jona Cristin [facility] 10-19-2022 05:12-0400 SaO2% (BldA) [Mass fraction] 98 % Jona Cristin [facility] 10-19-2022 05:12-0400 Diastolic blood pressure 41 mm[Hg] Jona Cristin [facility] 10-19-2022 05:12-0400 Mean blood pressure 56 mm[Hg] Jona Cristin [facility] 10-19-2022 05:12-0400 Systolic blood pressure 86 mm[Hg] Jona Cristin [facility] 10-19-2022 05:12-0400 Body temperature 98.6 [degF] Jona Cristin [facility] 10-18-2022 22:59-0400 Respiratory rate 20 /min Jona Cristin [facility] 10-18-2022 21:45-0400 Mean blood pressure 84 mm[Hg] Jona Cristin [facility] 10-18-2022 21:45-0400 Respiratory rate 15 /min Jona Cristin [facility] 10-18-2022 21:00-0400 Mean blood pressure 82 mm[Hg] Jona Cristin [facility] 10-18-2022 21:00-0400 Respiratory rate 17 /min Jona Cristin [facility] 10-18-2022 20:00-0400 Mean blood pressure 89 mm[Hg] Jona Cristin [facility] 10-18-2022 14:08-0400 gluc 93 mg/dL Jona Cristin [facility] 10-18-2022 14:08-0400 gluc Jona Cristin [facility] 10-18-2022 14:08-0400 Respiratory rate 15 /min Jona Cristin [facility] 10-18-2022 13:30-0400 Heart rate 108 /min Jona Cristin [facility] 10-18-2022 13:30-0400 Respiratory rate 16 /min Jona Cristin [facility] Encounters Encounter Date Encounter Type Care Provider Facility Start: 03-30-2024 End: 03-30-2024 Bamboo flowsheet Irving Delores DO Work Phone: [facility] Start: 03-30-2024 End: 03-30-2024 Bamboo flowsheet Irving Delores DO Work Phone: [facility] Start: 03-30-2024 End: 03-30-2024 flow sheet Irving Delores DO Work Phone: [facility] Comment on above: Third trimester preg ida Start: 03-26-2024 End: 03-26-2024 Clinisync Result Encounter [...] Start: 03-19-2024 End: 03-19-2024 flow sheet Luana Bejarano PA Work Phone: [facility] Comment on above: Third trimester preg ida; 36 weeks gestation of Start: 03-19-2024 End: 03-19-2024 Bamboo flowsheet Luana VALDOVINOS Work Phone: [facility] Start: 03-19-2024 End: 03-19-2024 [...] End: 06-18-2023 Lab Drop off Mike Fuentes [facility] Start: 06-18-2023 End: 06-18-2023 Patient encounter procedure [facility] Start: 10-22-2022 End: 10-22-2022 ambulatory Roslyn Valdes Facility:[id number] Start: 10-18-2022 End: 10-19-2022 ambulatory Sahil BUTLER Facility:[facility] Start: 10-18-2022 End: 10-19-2022 Observation Jona Amaral [facility] Start: 10-06-2022 End: 10-07-2022 ambulatory LUANA HILLMANEY . Facility: Start: 08-23-2022 End: 08-23-2022 ambulatory LUANA BEJARANO . Facility:[facility] Start: 07-23-2022 End: 07-24-[address] IRVING LIMON . Facility:[facility] Start: 06-28-2022 End: 06-29-[address] IRVING LIMON . Facility:[facility] Start: 06-06-2022 ambulatory Esperanzacathy Dong y:[facility] Procedures Date Procedure Procedure Detail Performing Clinician Start: 03-30-2024 Urnls dip stick/tabl et rgnt non-auto w/o micrscp Irving Limon DO Work Phone: Start: 03-26-2024 TBH UA (CLEAN/CATCH) EGYPTOLOGIST/MICRO IF IND. Irving Limon DO Work Phone: Start: 03-19-2024 Urnls dip stick/tabl et rgnt non-auto w/o micrscp Luana Bejarano PA Work Phone: Plan of Treatment Date Care Activity Detail Author Start: 03-30-2024 End: 03-30-2024 Patient encounter procedure 03/30/2024 8:40 AM EDT Routine [facility] [address] [place] [address] Irving Limon, DO [address] [place] [address] [facility] Start: 03-23-2024 End: 03-23-2025 US biophysical profile w non stress test US biophysical profile w non stress test Imaging Routine Third trimester SGA (small for gestational age) Expected: 03/23/2024 (Approximate), Expires: 03/23/2025 [facility] Work Phone: Comment on above: [...] meningococcal B vacc ine, recombinant, OMV, adjuvanted [employer] [facility] [place] 02-09-2021 meningococcal oligosaccharide (groups A, C, Y and W-135) diphtheria toxoid conjugate vaccine (MCV4O) [employer] [facility] [place] 02-09-2021 hepatitis A vaccine, pediatric/adolescent dosage, 2 dose schedule [employer] [facility] 07-14-2018 hepatitis A vaccine, adult dosage [employer] [facility] 07-14-2018 HPV, unspecified formulation [employer] [facility] 07-14-2018 meningococcal B vacc ine, fully recombinant [employer] [facility] 12-26-2015 HPV, unspecified formulation [employer] [facility] 12-26-2015 meningococcal ACWY vaccine, unspecified formulation [employer] [facility] 12-26-2015 tetanus toxoid, unspecified formulation [employer] [facility] 04-28-2009 influenza virus vacc ine, unspecified formulation [employer] [facility] 04-28-2008 influenza virus vacc ine, unspecified formulation [employer] [facility] 02-26-2008 diphtheria, tetanus toxoids and acellular pertussis vaccine [employer] [facility] [place] 02-26-2008 measles, mumps and rubella virus vaccine [employer] [facility] [place] 02-26-2008 poliovirus vaccine, unspecified formulation [employer] [facility] [place] 02-26-2008 varicella virus vaccine [facility] [employer] [facility] 10-27-2003 diphtheria, tetanus toxoids and acellular pertussis vaccine [employer] [facility] 10-27-2003 haemophilus influenz ae type b vaccine, PRP-OMP conjugate [employer] [facility] 10-27-2003 measles, mumps and rubella virus vaccine [employer] [facility] 10-27-2003 varicella virus vaccine [facility] [employer] [facility] 04-28-2003 diphtheria, tetanus toxoids and acellular pertussis vaccine [employer] [facility] 04-28-2003 haemophilus influenz ae type b vaccine, PRP-OMP conjugate [employer] [facility] [place] 04-28-2003 hepatitis B vaccine, pediatric or pediatric/adolescent dosage [employer] [facility] 04-28-2003 pneumococcal conjuga te vaccine, 13 valent [employer] [facility] 04-28-2003 poliovirus vaccine, unspecified formulation [employer] [facility] [place] 2002 diphtheria, tetanus toxoids and acellular pertussis vaccine [employer] [facility] [place] 2002 haemophilus influenz ae type b vaccine, PRP-OMP conjugate [employer] [facility] 2002 pneumococcal conjuga te vaccine, 13 valent Jona Cristin [facility] 2002 poliovirus vaccine, unspecified formulation [employer] [facility] 2002 diphtheria, tetanus toxoids and acellular pertussis vaccine Jona [employer] [facility] 2002 haemophilus influenz ae type b vaccine, PRP-OMP conjugate [employer] [facility] 2002 hepatitis B vaccine, pediatric or pediatric/adolescent dosage [employer] [facility] 2002 pneumococcal conjuga te vaccine, 13 valent [employer] [facility] 2002 poliovirus vaccine, unspecified formulation [employer] [facility] 2002 hepatitis B vaccine, pediatric or pediatric/adolescent dosage [employer] [facility] Payers Date Payer Category [facility] [id number] 2023 Unknown BCBS BCBS [id number] [id number] 2023-Present [phone] [address] [place] [id number] 2023 Unknown [id number] 2023 Private Health Insurance [id number] 2021 Private Health Insurance 2002 Unknown [id number] 93 2002 Unknown [id number] 2.16.840.1.436583.3.579.2.5 93 2002 Unknown [id number] 2.16.840.1.072778.3.579.2.5 93 2002 Unknown [id number] 2.16.840.1.974089.3.579.2.5 93 2002 Unknown [id number] 2.16.840.1.132704.3.579.2.7 27 2002 Unknown [id number] 2.16.840.1.425122.3.579.2.7 27 2002 Unknown [id number] 2.16.840.1.389874.3.579.2.1 259 2002 Unknown [id number] 2.16.840.1.966293.3.579.2.1 259 2002 Unknown [id number] 2.16.840.1.813774.3.579.2.1 259 2002 Unknown [id number] 2.16.840.1.836020.3.579.2.1 259 2002 Unknown [id number] 2.16.840.1.594941.3.579.2.1 259 2002 Unknown [id number] 2.16.840.1.505180.3.579.2.1 259 2002 Unknown [id number] 2.16.840.1.849565.3.579.2.1 259 2002 Unknown [id number] 2.16.840.1.662437.3.579.2.1 259 2002 Unknown [id number] 2.16.840.1.033574.3.579.2.1 259 2002 Unknown [id number] 2.16.840.1.070699.3.579.2.1 259 2002 Unknown [id number] 2.16.840.1.800617.3.579.2.1 259 1959 Self-pay 1959 Unknown [id number] Unknown [id number] 2.16.840.1.678217.3.579.2.5 93 Social History Date Type Detail Facility Tobacco Never smoker [facility] Comment on above: denies Tobacco smoking status No Smokin g Status Entered [facility] Start: 09-05-2023 Sex Assigned At Female [facility] Start: 06-18-2023 End: 10-29-2023 Tobacco smoking status Never smoked tobacco (finding) [facility] Comment on above: denies Tobacco smoking status Never Fishe [facility] Comment on above: denies Start: 10-29-2023 Tobacco use and exposure Smokeless tobacco non-user [facility] Start: 03-05-2024 End: 03-30-2024 Alcoholic beverage intake Lifetime non-drinker (finding) [facility] Start: 09-05-2023 History of Social function [facility] Start: 10-29-2023 Tobacco Comment N/A [facility] Start: 11-15-2022 Alcohol Comment caffeine intak e: 1-2 cups per day [facility] Start: 07-23-2023 [facility] Start: 2002 Sex assigned at Female [facility] Start: 05-22-2023 Gender identity Identifies as female gender (finding) [facility] Goals Date Patient Goal Desired Activity /State Personal health goal Functional Status Date Assessment Result Facility 06-18-2023 Functional Status N/A [facility] 10-18-2022 Functional Status N/A [facility] 10-18-2022 Functional Status [facility] Clinical Notes 10-18-2022 to 03-30-2024 Nicole Ortiz LPN - 03/30/2024 8:40 AM EDTSmargarita Ortiz LPN - 03/23/2024 2:00 PM ARUNA Womack - 03/19/2024 3:10 PM EDT Note Date & Type Note Facility 03-30-2024 History of Present illness Narrative Reason for Appointment: Patient ID: Sidney Candelario is a 23 y.o. female who presents for Routine Visit Patient presents today for Return OB appointment. MEDICATIONS No current outpatient medications ALLERGIES No Known Allergies PROBLEMS Active Ambulatory Problems Diagnosis Date Noted Nausea 11/27/2022 Missed menses 09/03/2023 37 weeks gestation of 03/23/2024 Third trimester 03/23/2024 SGA (small for gestational age) 03/23/2024 Resolved Ambulatory Problems Diagnosis Date Noted No [...] SYSTEMS Review of Systems: Review of Systems All other systems reviewed and are negative. OBJECTIVE Objective: Physical Exam Constitutional: Appearance: Normal appearance. She is well-developed. Cardiovascular: Rate and Rhythm: Normal rate and regular rhythm. Pulmonary: Effort: Pulmonary effort is normal. Breath sounds: Normal breath sounds. Abdominal: General: Bowel sounds are normal. There is no distension. Palpations: Abdomen is soft. Tenderness: There is no abdominal tenderness. There is no guarding or rebound. Musculoskeletal: General: No swelling. Normal range of motion. Right lower leg: No edema. Left lower leg: No edema. Neurological: Mental Status: She is alert and oriented to person, place, and time. Skin: General: Skin is warm and dry. Psychiatric: Mood and Affect: Mood normal. Behavior: Behavior normal. Vitals and nursing note reviewed. Exam conducted with a grade checker present. Vitals: Estimated body mass index is 22.09 kg/m as calculated from the following: Height as of 10/01/22: 5'. Weight as of this encounter: 113 lb 1.9 oz. BP: 102/68 Patient's last menstrual period was 06/29/2023. ASSESSMENT & PLAN ICD-10-CM 1. Third trimester Z34.93 Urine dip Patient presents today for a routine obstetrics appointment. Patient is currently 37w6d with a Estimated Date of Delivery: 04/14/24. Patient to have IOL on Saturday04/01/24 for IUGR. Patient signed IOL consent and will report to ER entrance at 0500 and to be induced in [facility]. Dr. Limon called [facility] and spoke to Julia to change date of IOL to Saturday. Patient to return to clinic for 6 week post . Documented by Nicole Ortiz LPN on behalf of: Irving Limon DO documented in this encounter [facility] 03-23-2024 History of Present illness Narrative Reason [...] Irving Limon DO documented in this encounter [facility] 03-19-2024 History of Present illness [...] of: ARUNA Singh documented in this encounter [facility] 06-18-2023 Hospital Discharge instructions Patient Education 06/18/2023 16:34:28 Pharyngitis, Fyzv-zk-Ornl Pharyngitis Pharyngitis is a sore throat (pharynx). [...] Follow these instructions at home: Medicines Take ksyr-vvj-zzhygtu and prescription medicines only as told by [...] and water are not available, use hand superintendent marine. Do not touch your eyes, nose, or [...] provider. Document Revised: 08/23/2021 Document Reviewed: 08/23/2021 [employer] Patient Education 2022 [employer]. 06/18/2023 16:34:25 Viral Illness, Adult Viral Illness, [...] Medicines to relieve symptoms. These can include ybfp-iay-gkbslpd medicine for pain and fever, medicines for cough or congestion, and medicines to relieve diarrhea. Antiviral medicines. These medicines are available only for certain types of viruses. Some viral illnesses can be prevented with vaccinations. A common example is the flu shot. Follow these instructions at home: Medicines Take uofg-dfa-mtiibgx and prescription medicines only as told by [...] and water are not available, use hand superintendent marine. Avoid touching your nose, eyes, and mouth, [...] provider. Document Revised: 10/10/2020 Document Reviewed: 04/05/2020 [employer] Patient Education 2022 [employer]. [facility] 06-18-2023 Evaluation + Plan note Diagnostic Tests PendingGroup A Strep by PCR 06/18/23 [facility] 01-23-2023 Note Procedure History None. Hospital Course [...] drug abuse. ED physician discussed case with elementary art teacher Dr. Butler and STITCH CLE[employer]ER Dr. Mortensen. Telemetry monitoring and echocardiogram was [...] this is written under the wrong FIN [facility] Comment on above: Result Comment: Elec [...] drug abuse. ED physician discussed case with elementary art teacher Dr. Butler and STITCH CLEANER Dr. Mortensen. Telemetry monitoring and echocardiogram was [...] 78.2 % Lymph Auto - 12.3 % Callahan Auto - 8.5 % Eos Auto - 0.6 % Basophil Auto - 0.4 % Neutro Absolute - 12.7 E9/L Lymph Absolute - 2.0 E9/L Callahan Absolute - 1.4 E9/L Eos Absolute - [...] NEGATIVE1 UA Nitri (more content not included)... [facility] Comment on above: Result Comment: Elec [...] care. Jono Mortensen M.D. lr Dictated: 10/19/2022 [id number] Transcribed: 10/19/2022 cc:Irving Limon D.O. [facility] Comment on above: Result Comment: Elec tronically Signed By: Jono Mortensen MD\.br\Date and Time Signed: 10/20/22 02:24 EDT 10-19-2022 Note Order received, corinne t reviewed. Attempted PT evaluation at 1424 on 10/19/22. Pt. is out of room and has been discharged from acute medical facility prior to completion of PT evaluation. No PT charges. [facility] 10-19-2022 Note Echocardiology Procedure Exam Date/Time Accession # Ordering Dr. Longoria Transthoracic 10/19/2022 12:02 EDT [id number] Favian Ahumada DO Complete CPT code [id number] Reason for Exam (Echo Transthoracic Complete) Syncope Report [facility] [address] [place] [address] Adult Echocardiogram Report Name: SIDNEY CANDELARIO Study Date: 10/19/2022 11:33 AM BP: 93/61 mmHg Patient Location: [address] [place] [address] HR: 95 : 2000 Gender: Female Height: 60 in Age: 22 yrs Ethnicity: T Weight: 110 lb Reason For Study: Syncope BSA: 1.4 m2 History: No cardiac history per patient Ordering Physician: Kassidy Performed By: Ro Guerrero, [facility] Interpretation Summary Ejection Fraction = 65-70%. The [...] Butler MD Transcribed by: MAYRA Technologist: ÁLVARO [facility] 10-19-2022 Evaluation + Plan note Extrac [...] made to ensure accuracy, however, inadvertently computerized hand former helper mistakes may be present. Dr. Jona Bowser [facility] Hospitalist Ordered: acetaminophen, 650 mg [...] Weight Diagnostic Tests Pending * Cortisol 10/19/22 [facility]05-12-2023 NoteChief Complaint Dizziness Reason for Consultation Abnormal [...] not improve, she sought medical attention at [facility] emergency room. In theemergency room her [...] check Historical No q (more content not included)...[facility] Comment: Electronically Signed By: Isreal MOSS, Sahil Swartz.rafael\Date and Time Signed: 10/19/22 10:01 [id number] Hospital Discharge instructions Patient Education 10/19/2022 09:40:44 [...] Treatment for this condition includes: Antibiotic medicine. Efkt-qlx-vubgawq medicines to treat discomfort. Drinking enough water [...] Follow these instructions at home: Medicines Take wysm-zde-wqyiyrl and prescription medicines only as told by [...] provider. Document Revised: 01/06/2021 Document Reviewed: 01/06/2021 [employer] Patient Education 2022 [employer]. 10/19/2022 09:40:42 Near-Syncope, Oqwf-ea-Mkkg Near-Syncope Near-syncope is when you suddenly feel [...] Follow these instructions at home: Medicines Take hbvb-fsc-qwgatyk and prescription medicines only as told by [...] provider. Document Revised: 10/05/2021 Document Reviewed: 10/05/2021 [employer] Patient Education 2022 [employer]. Follow Up Care 10/18/2022 13:28:40 With:Isreal MOSS, Sahil Fuller Address: [address] [place], [place] [address] [address] [phone] When:2 weeks With:Roslyn Valdes MD, [facility], [facility] Address: [phone] When:2 to 4 days [facility]05-11-2023 NoteChief Complaint pt reports being 25 weeks [...] drug abuse. ED physician discussed case with elementary art teacher Dr. Butler and [employer] Dr. Mortensen. Telemetry monitoring and echocardiogram was [...] Lymph Auto: 11.2 % Low (10/18/22 14:39:00) Callahan Auto: 8.3 % (10/18/22 14:39:00) Eos Auto: 0.5 % (10/18/22 14:39:00) Basophil Auto: 0.6 % (10/18/22 14:39:00) Neutro Absolute: 12.5 E9/L High (10/18/22 14:39:00) Lymph Absolute: 1.8 E9/L (10/18/22 14:39:00) Callahan Absolute: 1.3 E9/L High (10/18/22 14:39:00) Eos [...] assessed the patient i (more content not included)...[facility]:Result Comment: Electronically Signed By: Cristin MOSS, Jona Rivera\.br\Date and Time Signed: 10/18/22 19:03 EDTEvaluation note* Diagnosis Third trimester state, incidental 36 weeks gestation of documented in this encounter [facility] HealthcareEvaluation note* Diagnosis Third trimester state, incidental SGA (small for gestational age) Ejycz-xsw-yxrnb without mention of malnutrition, unspecified (weight) 37 weeks gestation of documented in this encounter [facility] HealthcareEvaluation note* Diagnosis Third trimester state, incidental documented in this encounter [facility] HealthcareHospital course Narrative No data available for this section [facility] No data available for this section [facility] No data available for this section [facility] Summary Purpose Family History No Family History Records FoundNo Family History Records Found No data available for this section No data available for this section No Family History Records Found Advance Directives No Advanced Directives Records FoundNo Advanced Directives Records FoundNo Advanced Directives Records Found Additional Source Comments INFORMATION SOURCE (unrecogn ized section and content) DATE CREATED AUTHOR 10/13/2022 [facility] DATE CREATED AUTHOR AUTHOR'S ORGANIZ ATION 01/24/2023 [facility] DATE CREATED AUTHOR AUTHOR'S ORGANIZ ATION 03/25/2024 [facility] [employer] EPIC Patient Care team informatio n (unrecognized section and content) Personnel Name: Roslyn Valdes MD Address: Address: [address] [place] [address] Personnel Name: Roslyn Valdes MD Address: Address: [address] [place] [address] Personnel Name: Roslyn Valdes MD Address: Address: [address] [place] [address] Reason for Visit (unrecogniz ed section and [...] BE BASED ON THE PRIMARY CLINICAL RECORDS. [facility] [employer] [facility]. provides no warranty or guarantee of the accuracy or completeness of information in this document.
--- NOTE | 2024-03-31 14:53 | US_ITS ---
[address] [address] Patient Name: SIDNEY CANDELARIO MRN: [id number] date: 2000 Sex: F Assigned Patient Location: [facility] Current Patient Location: [facility] Accession/Order Number: [id number] Exam Date: 03/31/2024 14:55 Report Date: 03/31/2024 15:17 At the request of: MAGDA MCKENNA Procedure: US OB BPP w non-stress EXAMINATION: US OB BPP w non-stress HISTORY: Small for gestational age COMPARISON: No relevant comparison available. TECHNIQUE: Ultrasound biophysical profile was performed in the radiology department. non-reactive stress testing was performed by nursing staff in the birthing center. FINDINGS: BREATHING MOVEMENTS: 2 GROSS BODY MOVEMENTS: 2 TONE: 2 QUALITATIVE AMNIOTIC FLUID VOLUME: 2 PRESENTATION: CEPHALIC HEART RATE: 147.54 bpm AMNIOTIC FLUID VOLUME: 14.1 cm GESTATIONAL AGE: 38 weeks 0 days US/US OB BPP w non-stress IMPRESSION: Total biophysical profile score: 8 Electronically authenticated by: ANEL GIBBONS Date: 03/31/2024 15:17
[2024-03-31 15:07] VITALS: BP 106/64; PULSE 86
== END 2024-03-31 15:37 | disposition home or self-care (01) ==
LOC: US 07:07 → FBC 14:45
PROVIDERS: Visit Provider Obstetrics & Gynecology
DX: O26.843 Uterine size-date discrepancy, third trimester (principal); Z3A.38 38 weeks gestation of pregnancy
CPT/HCPCS: 76818

== ENCOUNTER 2024-04-01 05:06 | Inpatient (IN) | payer BC, SELFPAY ==
[2024-04-01] VITALS (40 sets, daily range): BP systolic 84–122; BP diastolic 46–78; PULSE 70–108; TEMP 35.9–36.8
--- OUTSIDE RECORDS SUMMARY | 2024-04-01 05:09 | XMS_ITS | CCD ---
Author Organization [facility] Care Team Providers Care Counter Pocket Sewer Name Role Phone DELORES ., DR MAN [...] DARCI LUANA Attending Unavailable DELORESIRVING Attending Unavailable DARCI LUANA Attending Unavailable DELORESIRVING HOWELL Attending Unavailable IRVING LIMON Attending Unavailable Medications Current Medications Medication Drug Class(es) Dates Sig (Normalized) Sig (Original) cephalexin 500 mg oral capsule (1 source) Cephalosporin Antibacterial Start: 10-19-2022 End: 10-23-2022 take 1 capsule by mouth every six hours Keflex 500 mg Cap 500 mg = 1 cap(s), Oral, q6hr, X 4 day(s), # 16 cap(s), Refills(s) 0, Pharmacy: [facility], 152, cm, 10/18/22 13:33:00 EDT, Height/Length [...] low weight; and growth retardation (8 sources) Uycav-scb-scpfs baby; Translations: [ small for gestational age, [...] UA Negative Negative - 4(70) +++ mg/dL [facility] Blood, UA Negative Negative - 50 Jb/mcL [facility] Clarity, UA Clear [facility] Color, UA Yellow [facility] Glucose, UA Negative Negative - 1999(110) ++++ mg/dL [facility] Interpretation and review of laboratory results Normal [facility] Ketones, UA Negative Negative - 160(16) ++++ mg/dL [facility] Leukocytes, UA Negative Negative - 500+++ Josh/mcL [facility] Nitrite, UA Negative Negative - Positive [facility] pH, UA 6.5 5 - 9 [facility] Protein, UA Negative Negative - 2000(20) ++++ mg/dL [facility] Spec Grav, UA 1.025 1 - 1.03 [facility] Urobilinogen, UA 1.0 0.2 - 12 mg/dL [facility] UA (CLEAN/CATCH) HOME CARE SPECIALIST/OBDULIO RO IF IND.on 03-26-2024 BILIRUBIN URINE Negative NEGATIVE [facility] BLOOD URINE Negative NEGATIVE [facility] Clarity (U) CLEAR CLEAR [facility] Color (U) LT. YELLOW YELLOW [facility] GLUCOSE URINE UA Negative NEGATIVE mg/dL [facility] Interpretation and review of laboratory results Abnormal [facility] Ketones Ql (U) 15 mg/dL Abnormal NEGATIVE [facility] Leukocyte esterase Test strip Ql (U) TRACE Abnormal NEGATIVE [facility] NITRITE URINE Negative NEGATIVE [facility] pH (U) 7.5 [pH] 5.0 - 9.0 [facility] PROTEIN URINE Negative NEG/TRACE mg/dL [facility] SPECIFIC GRAVITY URINE 1.010 1.005 - 1.025 [facility] URINE MICROSCOPIC INDICATED YES [facility] UROBILINOGEN URINE 0.2 EU/dL 0.2 - 1.0 EU/dL [facility] Urinalysis macro (dipstick) panel (U)on 03-19-2024 Bilirubin, UA Negative Negative - 4(70) +++ mg/dL [facility] Blood, UA Negative Negative - 50 Jb/mcL [facility] Clarity, UA Cloudy [facility] Color, UA Yellow [facility] Glucose, UA Negative Negative - 1999(110) ++++ mg/dL [facility] Interpretation and review of laboratory results Abnormal [facility] Ketones, UA Negative Negative - 160(16) ++++ mg/dL [facility] Leukocytes, UA Positive Negative - 500+++ Josh/mcL [facility] Comment on above: small Nitrite, UA Negative Negative - Positive [facility] pH, UA 7.0 5 - 9 [facility] Protein, UA Negative Negative - 1999(20) ++++ mg/dL [facility] Spec Grav, UA 1.020 1 - 1.03 [facility] Urobilinogen, UA 0.2 0.2 - 12 mg/dL [facility] Nursing Assessmenton 023 Nursing Assessment [id number] #1.00CD:127 Normal [facility] Discharge Instructionson Discharge Instructions [id number] #1.00CD:127 Normal [facility] C Urineon 10-20-2022 Bacteria [...] Locations R1: This test was performed at: [facility], [address] [place] [address], [address] , , [facility] Comment on above: Performed By: #### 2 [id number], [id number], [id number] ####[facility] [address] [place] [address] Cortisolon 10-20-2022 Cortisol [Mass/Vol] 18.4 microgram/dL Invalid Interpretation Code 6.2-19.4 [facility] Comment on above: Result Comment: Pleada jeter Note: The reference interval and flagging for this test is for an AM collection. If this is a PM collection please use: Cortisol PM: 2.3-11.9 Performed at: [facility] [address] [id number] PhD Buck Montes Performed By: #### 2 [id number] #### [facility] [address] [place] [address] Auto Diffon 10-19-2022 Basophils/100 WBC (Bld) 0.4 % Normal 0.0-2.0 [facility] Comment on above: Order Comment: Order Added by Discern Expert. Performed By: #### 2 757651 #### [facility] [address] [place] [address] Basophils/Leukocytes Auto (Bld) [Pure # fraction] 0.1 E9/L Normal 0.0-0.2 [facility] Comment on above: Order Comment: Order Added by Discern Expert. Performed By: #### 2 659568 #### [facility] [address] [place] [address] Eosinophils/100 WBC (Bld) 0.6 % Normal 0.0-8.0 [facility] Comment on above: Order Comment: Order Added by Discern Expert. Performed By: #### 2 077985 #### [facility] [address] [place] [address] Eosinophils/Leukocytes Auto (Bld) [Pure # fraction] 0.1 E9/L Normal 0.0-0.5 [facility] Comment on above: Order Comment: Order Added by Discern Expert. Performed By: #### 2 734300 #### [facility] [address] [place] [address] Lymphocytes/100 WBC (Bld) 12.3 % Low 14.0-50.0 [facility] Comment on above: Order Comment: Order Added by Discern Expert. Performed By: #### 2 386002 #### [facility] [address] [place] [address] Lymphocytes/Leukocytes Auto (Bld) [Pure # fraction] 2.0 E9/L Normal 1.0-4.0 [facility] Comment on above: Order Comment: Order Added by Discern Expert. Performed By: #### 2 187193 #### [facility] [address] [place] [address] Monocytes/100 WBC (Bld) 8.5 % Normal 4.0-14.0 [facility] Comment on above: Order Comment: Order Added by Discern Expert. Performed By: #### 2 996124 #### [facility] [address] [place] [address] Monocytes/Leukocytes Auto (Bld) [Pure # fraction] 1.4 E9/L High 0.2-1.0 [facility] Comment on above: Order Comment: Order Added by Discern Expert. Performed By: #### 2 042202 #### [facility] [address] [place] [address] Neutrophils/100 WBC (Bld) 78.2 % High 36.0-75.0 [facility] Comment on above: Order Comment: Order Added by Discern Expert. Performed By: #### 2 546799 #### [facility] [address] [place] [address] Neutrophils/Leukocytes Auto (Bld) [Pure # fraction] 12.7 E9/L High 2.0-7.5 [facility] Comment on above: Order Comment: Order Added by Discern Expert. Performed By: #### 2 260792 #### [facility] [address] [place] [address] BMPon 10-19-2022 Anion gap [Moles/Vol] 10 mmol/L Normal 6-16 [facility] Comment on above: Performed By: #### 2 930955 #### [facility] [address] [place] [address] Calcium [Mass/Vol] 8.0 mg/dL Low 8.9-11.1 [facility] Comment on above: Performed By: #### 2 701794 #### [facility] [address] [place] [address] Chloride [Moles/Vol] 106 mmol/L Normal 101-111 [facility] Comment on above: Performed By: #### 2 836425 #### [facility] [address] [place] [address] CO2 [Moles/Vol] 23 mmol/L Normal 21-31 [facility] Comment on above: Performed By: #### 2 050182 #### [facility] [address] [place] [address] Creatinine [Mass/Vol] 0.5 mg/dL Normal 0.5-1.3 [facility] Comment on above: Performed By: #### 2 878926 #### [facility] [address] [place] [address] Glucose [Mass/Vol] 82 mg/dL Normal 55-199 [facility] Comment on above: Result Comment: If t his glucose result represents a fasting glucose, interpretation should refer to the following reference range: 55-99 mg/dL Performed By: #### 2 808626 #### [facility] [address] [place] [address] Potassium [Moles/Vol] 3.6 mmol/L Normal 3.5-5.3 [facility] Comment on above: Performed By: #### 2 606125 #### [facility] [address] [place] [address] Sodium [Moles/Vol] 135 mmol/L Normal 135-145 [facility] Comment on above: Performed By: #### 2 508052 #### [facility] [address] [place] [address] Urea nitrogen [Mass/Vol] 5 mg/dL Normal 5-21 [facility] Comment on above: Performed By: #### 2 914827 #### [facility] [address] [place] [address] Urea nitrogen/Creatinine [Mass ratio] 10 No Units Normal 10-20 [facility] Comment on above: Performed By: #### 2 119460 #### [facility] [address] [place] [address] CBC w/ Auto Diffon 3 Erythrocyte distribution width (RBC) [Ratio] 13.6 % Normal 10.9-14.2 [facility] Comment on above: Performed By: #### 2 170734 #### [facility] [address] [place] [address] Hematocrit (Bld) [Volume fraction] 34.1 % Normal 34.0-46.0 [facility] Comment on above: Performed By: #### 2 054720 #### [facility] [address] [place] [address] Hemoglobin (Bld) [Mass/Vol] 11.3 g/dL Low 12.0-16.0 [facility] Comment on above: Performed By: #### 2 434223 #### [facility] [address] [place] [address] MCH (RBC) [Entitic mass] 30.3 pg Normal 27.0-34.0 [facility] Comment on above: Performed By: #### 2 926600 #### [facility] [address] [place] [address] MCHC (RBC) [Mass/Vol] 33.2 g/dL Normal 31.4-36.0 [facility] Comment on above: Performed By: #### 2 574782 #### [facility] [address] [place] [address] MCV (RBC) [Entitic vol] 91.3 fL Normal 80.0-100.0 [facility] Comment on above: Performed By: #### 2 156170 #### [facility] [address] [place] [address] Platelet mean volume (Bld) [Entitic vol] 8.9 fL Normal 6.4-10.8 [facility] Comment on above: Performed By: #### 2 462109 #### [facility] [address] [place] [address] Platelets (Bld) [#/Vol] 146.0 E9/L Low 150.0-500.0 [facility] Comment on above: Performed By: #### 2 683828 #### [facility] [address] [place] [address] RBC (Bld) [#/Vol] 3.7 E12/L Low 4.3-5.9 [facility] Comment on above: Performed By: #### 2 694972 #### [facility] [address] [place] [address] WBC corrected for nucl RBC Auto (Bld) [#/Vol] 16.3 E9/L High 4.0-11.0 [facility] Comment on above: Performed By: #### 2 483185 #### [facility] [address] [place] [address] CHEMISTRYOrdered By: SYSTEM SYSTEM on 10-19-2022 Anion [...] Pending Diagnostic Test Results None Pharmacy Information [facility] New Follow Up Appointments after Discharge Follow Up with Sahil Butler MD When: Within 2 weeks Where: [address] [place] [phone] Follow Up with Roslyn Valdes MD, [facility] When: Within 2 to 4 days Where: [phone] Medications What How Much When Instructions Next Dose New cephalexin (Keflex 500 mg Cap) 1 Capsules By Mouth Every 6 hours Duration: 4 Days Pickup at [facility] Pharmacy Information [facility]: [address] [place], [place] [id number] [phone] What How Much When Comments Stop Taking [...] condition include: (more content not included)... Normal [facility] ED Clinical Summaryon 2022 ED Clinical Summary [place] [id number] ED Clinical Summary Person Information Name: SIDNEY CANDELARIO [facility] Age: 22 Years : 2000 Sex: Female Language: [place] PCP: Roslyn Valdes MD Marital Status: Visit [...] 10/18/2022 22:10:25 10/18/2022 22:10:25 10/18/2022 22:10:25 ADDRESS: [address] [place] [id number] PHYS DOC NOTES: MEDICAL INFORMATION: Prescriptions Given: Medications to Continue with No Changes Other Medications ibuprofen (ibuprofen 400 mg Tab) 1 Tablets By Mouth every 6 hours as needed for pain. Refills: 0. PATIENT EDUCATION INFORMATION: Instructions: Follow up: DIAGNOSIS: 1:Near syncope; 2:UTI (urinary tract infection); 3:Hypokalemia; Elevated troponin Normal [facility] ED Patient Education Noteon 10-19-2022 ED Patient Education Note Normal [facility] ED Patient Summaryon 023 ED Patient Summary [place] [id number] Patient Discharge Instructions Person Information Name: SIDNEY CANDELARIO Age: 22 Years Arrival Date: 10/18/2022 13:27:27 Discharge Diagnosis: 1:Near syncope; 2:UTI (urinary tract infection); 3:Hypokalemia; Elevated troponin Primary Care Physician: Roslyn Valdes MD Provider Information Primary Provider: Favian Ahumada DO Advanced Java Sybase Developer:None The exam and treatment you received in the Emergency Department were for an urgent problem and are not intended as complete care. It is important that you follow up with a doctor, nurse practitioner, or physician?s nurseryman assistant for ongoing care. If your symptoms [...] opioids can be used to help relieve cnbbsbra-ux-wdytbs pain and are often prescribed following a [...] be struggling with addiction, tell your health animal care taker and ask for guidance or call [facility]?S National Helpline at 8-652-062-JQPI. y Source: [place] Department of Health and Human Services/Center for Disease Control & Prevention [facility] (more content not included)... Normal [facility] HEMATOLOGYOrdered By: SYSTEM SYSTEM on 10-19-2022 [...] Inpatient Clinical Summaryon 10-19-2022 Inpatient Clinical Summary [place] [id number] Clinical Summary Person Information: Name: SIDNEY CANDELARIO Age: 22 Years : 2000 Sex: Female PCP: Roslyn Valdes MD Marital Status: Race: White Ethnicity: Non- or Language: [place] Visit Id: Visit Reason: Dizziness; UTI, NEAR SYNCOPE, HYPOKALEMIA Speciality: Acuity: Enc Type: Observation Med Service: Medical Arrival: 10/18/2022 13:27:27 Discharge: Dispo Type: Address: [address] [place] [id number] Provider Notes: Diagnosis: 1:Near syncope; 2:UTI (urinary [...] up: With: Address: When: Roslyn Valdes MD, [facility] [phone] Within 2 to 4 days Patient Education Information: Normal [facility] Inpatient Patient Summaryon 10-19-2022 Inpatient Patient Summary [place] [id number] Patient Discharge Instructions PERSON INFORMATION Name: SIDNEY CANDELARIO Date of : 2000 Current Date: 10/19/2022 09:40:25 PHYSICIANS Admitting Physician: Jona Amaral MD Primary Care Physician: Roslyn Valdes MD PCP Phone Number: [phone] Comment: Discharge Diagnosis: 1:Near syncope; 2:UTI (urinary [...] up: With: Address: When: Roslyn Valdes MD, [facility] [phone] Within 2 to 4 days In the [...] Leaflets: You may receive a survey from [employer] asking you to rate your care experience. Your feedback is important and will help us understand what we do well and how we can improve the quality of care we provide to you, your loved ones and our community. It?s an honor to serve you. Thank you for choosing [facility] Normal [facility] Interdisciplinary Note - Christ e Manageron 10-19-2022 Interdisciplinary Note - Headlight Assembler Pt is awake and alert in bed, previously rounded with Dr. Amaral. Spouse at bedside, Pt is aware of plan for scan today and plan to DC home later today. Declines any concerns or DC needs. Observation status reviewed. PCP verified and insurance information reviewed and DME discussed. Contact information provided and white board updated. Normal [facility] Comment on above: Result Comment: Elec tronically Signed By: Heraclio GRAFF, Sayda\.br\Date and Time Signed: 10/19/22 11:06 EDT Magnesiumon 10-19-2022 Magnesium [Mass/Vol] 1.7 mg/dL Normal 1.3-2.4 [facility] Comment on above: Performed By: #### 2 [id number] #### [facility] [address] [place] [address] Monitor Recordon 10-19-2022 Monitor Record [id number]#1.00CD:127 Normal [facility] Monitor Record [id number]#1.00CD:127 Normal [facility] Monitor Record [id number]#1.00CD:127 Normal [facility] Monitor Record [id number]#1.00CD:127 Normal [facility] Patient Education - Texton 0 10-19-2022 [...] these instructions at home: Medicines ? Take yqas-jeq-gxafxzz and prescription medicines only as told by [...] provider. Document Revised: 10/05/2021 Document Reviewed: 10/05/2021 Keyword [employer] Patient Education ? 2022 [employer]. Obstetrics and Gynecology Urinary Tract Infection, Adult [...] (neurogenic bladder). (more content not included)... Normal [facility] Phosphoruson 10-19-2022 Phosphate [Mass/Vol] 3.8 mg/dL Normal 1.9-4.6 [facility] Comment on above: Performed By: #### 2 456589 #### [facility] [address] [place] [address] Progress Note-Physicianon Progress Note-Physician Basic Informatio n [...] drug abuse. ED physician discussed case with principal military analyst Dr. Butler and SHOW DOG TRAINER Dr. Mortensen. Telemetry monitoring and echocardiogram was [...] Ceftriaxone day [address] Moretnsen performed US in ED Hypokalemia Potassium 3.3. Will replete potassium. Check magnesium Diet: Regular Code: Full code DVT prophylaxis: heparin This report was transcribed using voice recognition software. Every effort was made to ensure accuracy, however, inadvertently computerized die stamper mistakes may be present. Dr. Jona Amaral [...] Lymph Auto: 12.3 % Low (10/19/22 05:47:00) Holt Auto: 8.5 % (10/19/22 05:47:00) Eos Auto: 0.6 % (10/19/22 05:47:00) Basophil Auto: 0.4 % (10/19/22 05:47:00) Neutro Absolute: 12.7 E9/L High (10/19/22 05:47:00) Lymph Absolute: 2 E9/L (10/19/22 05:47:00) Holt Absolute: 1.4 E9/L High (10/19/22 05:47:00) Eos [...] 05:47:00) Magnesium (more content not included)... Normal [facility] Comment on above: Result Comment: Elec tronically Signed By: Cristin MOSS, Jona Rivera\.rafael\Date and Time Signed: 10/19/22 12:08 EDT Troponin 9 Hr.on 10-19-2022 Troponin I.cardiac [Mass/Vol] 48.10 pg/mL Abnormal 10.10-27.10 [facility] Comment on above: Order Comment: pt is not discharged despite the discharge status. pt is in room 302; third shift phleb was notified not to cancel pending orders. [id number] 10/18/2022 22:15:32 EDT Result Comment: Crit ical [...] Sensitivity Troponin I Instructions For Use, [facility] [place], January 2018) Performed By: #### 1 [id number] #### [facility] [address] [place] [address] eGFRon 10-19-2022 GFR/1.73 sq M.predicted among non-blacks MDRD (S/P/Bld) [Vol rate/Area] 138 mL/min/1.73 m2 Normal >=59 [facility] Comment on above: Order Comment: Order added by Discern Expert. Result Comment: Plate Filler sydnie kidney disease could be indicated at eGFR's of less than 60 mL/min/1.73m2. Kidney failure is indicated at less than 15 mL/min/1.73m2. Performed By: #### 2 032898 #### [facility] [address] [place] [address] Acetamnphn Lvlon 10-18-2022 Acetaminophen [Mass/Vol] ug/mL Low 15-30 [facility] Comment on above: Performed By: #### 1 2962772, 6977478, 1865696, 81614874, 4018957, 02208096, 89321201, 3734553, 7969610 ####[facility] [address] [place] [address] Auto Diffon 10-18-2022 Basophils/100 WBC (Bld) 0.6 % Normal 0.0-2.0 [facility] Comment on above: Order Comment: Order Added by Discern Expert. Performed By: #### 1 2255834, 5874033, 5274730, 96053973, 9738136, 03989425, 21819345, 8308250, 4356465 ####[place] [address] [place] [address] Basophils/Leukocytes Auto (Bld) [Pure # fraction] 0.1 E9/L Normal 0.0-0.2 [facility] Comment on above: Order Comment: Order Added by Discern Expert. Performed By: #### 1 6549819, 4381458, 9567662, 77819320, 7689940, 60681652, 82669242, 7907084, 9058690 ####[place] [address] [place] [address] Eosinophils/100 WBC (Bld) 0.5 % Normal 0.0-8.0 [facility] Comment on above: Order Comment: Order Added by Discern Expert. Performed By: #### 1 4356391, 9108679, 9889310, 85755217, 9344171, 50063579, 49229550, 8408858, 0686624 ####[facility] [address] [place] [address] Eosinophils/Leukocytes Auto (Bld) [Pure # fraction] 0.1 E9/L Normal 0.0-0.5 [facility] Comment on above: Order Comment: Order Added by Discern Expert. Performed By: #### 1 1368346, 4655943, 1552132, 36360298, 6255102, 21193475, 85869843, 5259291, 4612706 ####[facility] [address] [place] [address] Lymphocytes/100 WBC (Bld) 11.2 % Low 14.0-50.0 [facility] Comment on above: Order Comment: Order Added by Discern Expert. Performed By: #### 1 3115923, 3235860, 0184665, 45207681, 8968817, 46558173, 91345226, 9294427, 0426372 ####[facility] [address] [place] [address] Lymphocytes/Leukocytes Auto (Bld) [Pure # fraction] 1.8 E9/L Normal 1.0-4.0 [facility] Comment on above: Order Comment: Order Added by Linda Expert. Performed By: #### 1 3023701, 3707602, 0109938, 40834832, 9691005, 38424921, 17676566, 7677599, 4209504 ####[place] [address] [place] [address] Monocytes/100 WBC (Bld) 8.3 % Normal 4.0-14.0 [facility] Comment on above: Order Comment: Order Added by Discern Expert. Performed By: #### 1 1885946, 7025366, 9055690, 75692025, 2123144, 97838519, 67194675, 7790909, 8612397 ####[place] [address] [place] [address] Monocytes/Leukocytes Auto (Bld) [Pure # fraction] 1.3 E9/L High 0.2-1.0 [facility] Comment on above: Order Comment: Order Added by Discern Expert. Performed By: #### 1 8247024, 1456766, 5045509, 86260864, 4145415, 51936823, 72203197, 2455090, 0927801 ####[place] [address] [place] [address] Neutrophils/100 WBC (Bld) 79.4 % High 36.0-75.0 [facility] Comment on above: Order Comment: Order Added by Linda Expert. Performed By: #### 1 3766235, 8635829, 5499905, 05942684, 1420067, 73048992, 14691906, 9148371, 2710608 ####[facility] [address] [place] [address] Neutrophils/Leukocytes Auto (Bld) [Pure # fraction] 12.5 E9/L High 2.0-7.5 [facility] Comment on above: Order Comment: Order Added by Discern Expert. Performed By: #### 1 5530899, 5795613, 2252785, 12614524, 4241958, 12327779, 72022369, 5302006, 0498090 ####[facility] [address] [place] [address] BMPon 10-18-2022 Creatinine [Mass/Vol] 0.5 mg/dL Normal 0.5-1.3 [facility] Comment on above: Performed By: #### 1 0497879, 1405944, 7881436, 16146224, 1904797, 15153590, 26926445, 2724851, 1495742 #### [facility] [address] [place] [address] Urea nitrogen [Mass/Vol] 7 mg/dL Normal 5-21 [facility] Comment on above: Performed By: #### 1 8325024, 7678108, 5093052, 58368196, 3561196, 91894497, 45250599, 7672556, 2668415 #### [facility] [address] [place] [address] Urea nitrogen/Creatinine [Mass ratio] 14 No Units Normal 10-20 [facility] Comment on above: Performed By: #### 1 4014518, 2985011, 6993846, 59513784, 2299323, 55574377, 88926074, 8597310, 8889120 #### [facility] [address] [place] [address] Anion gap [Moles/Vol] 11 mmol/L Normal 6-16 [facility] Comment on above: Performed By: #### 1 7477209, 5633913, 5423601, 16177947, 5799973, 76408295, 06462228, 7122577, 8313765 #### [facility] [address] [place] [address] Calcium [Mass/Vol] 8.7 mg/dL Low 8.9-11.1 [facility] Comment on above: Performed By: #### 1 6277392, 5660182, 8215130, 56788906, 6457090, 04174204, 30812021, 0257875, 0680889 #### [facility] [address] [place] [address] Chloride [Moles/Vol] 102 mmol/L Normal 101-111 [facility] Comment on above: Performed By: #### 1 3104613, 8357460, 4226791, 90442158, 9421700, 92825356, 39531212, 3338675, 1287808 #### [facility] [address] [place] [address] CO2 [Moles/Vol] 26 mmol/L Normal 21-31 [facility] Comment on above: Performed By: #### 1 8727399, 0261099, 9351134, 36676203, 4452208, 62754537, 69323765, 1484609, 4739866 #### [facility] [address] [place] [address] Glucose [Mass/Vol] 97 mg/dL Normal 55-199 [facility] Comment on above: Result Comment: If t his glucose result represents a fasting glucose, interpretation should refer to the following reference range: 55-99 mg/dL Performed By: #### 1 3817341, 3248224, 0369646, 10076237, 8343217, 15045335, 37870963, 4053575, 5186898 #### [facility] [address] [place] [address] Potassium [Moles/Vol] 3.3 mmol/L Low 3.5-5.3 [facility] Comment on above: Performed By: #### 1 8427600, 7537228, 2191503, 89150924, 2706858, 07562021, 66231854, 4080169, 4713307 #### [facility] [address] [place] [address] Sodium [Moles/Vol] 136 mmol/L Normal 135-145 [facility] Comment on above: Performed By: #### 1 0320868, 7475962, 8388830, 88656762, 2003081, 51646203, 46976730, 7801392, 5686789 #### [facility] [address] [id number] CBC w/ Auto Diffon 3 Erythrocyte distribution width (RBC) [Ratio] 13.8 % Normal 10.9-14.2 [facility] Comment on above: Performed By: #### 1 5170020, 8957608, 5844530, 40229532, 0470346, 05391057, 51829584, 3112147, 4010759 #### [facility] [address] [address] Hematocrit (Bld) [Volume fraction] 37.4 % Normal 34.0-46.0 [facility] Comment on above: Performed By: #### 1 3602049, 0188193, 9179086, 61582124, 5454935, 00662160, 50220131, 4611089, 7757242 #### [facility] [address] [place] [address] Hemoglobin (Bld) [Mass/Vol] 12.5 g/dL Normal 12.0-16.0 [facility] Comment on above: Performed By: #### 1 4005210, 6452149, 0893238, 94553351, 4619994, 57288682, 34509380, 1980277, 6640124 #### [facility] [address] [place] [address] MCH (RBC) [Entitic mass] 30.1 pg Normal 27.0-34.0 [facility] Comment on above: Performed By: #### 1 6789103, 2063764, 2710306, 32380920, 4266652, 20601240, 47800417, 3095186, 5386022 #### [facility] [address] [place] [address] MCHC (RBC) [Mass/Vol] 33.6 g/dL Normal 31.4-36.0 [facility] Comment on above: Performed By: #### 1 7804452, 4617527, 8441249, 16801253, 0632790, 89768083, 10233142, 2754594, 5987221 #### [facility] [address] [place] [address] MCV (RBC) [Entitic vol] 89.7 fL Normal 80.0-100.0 [facility] Comment on above: Performed By: #### 1 5074045, 1452080, 5302104, 67855287, 5282907, 85284171, 04003698, 8524735, 9977395 #### [facility] [address] [address] Platelet mean volume (Bld) [Entitic vol] 9.2 fL Normal 6.4-10.8 [facility] Comment on above: Performed By: #### 1 8574993, 4452368, 6404681, 59400748, 5386365, 36282004, 88830926, 5684567, 1880524 #### [facility] [address] [place] [address] Platelets (Bld) [#/Vol] 146.0 E9/L Low 150.0-500.0 [facility] Comment on above: Performed By: #### 1 2053561, 0513962, 2423637, 00981493, 8274483, 60962674, 02069496, 9669494, 9456237 #### [facility] [address] [place] [address] RBC (Bld) [#/Vol] 4.2 E12/L Low 4.3-5.9 [facility] Comment on above: Performed By: #### 1 6370748, 2843930, 2913218, 41697686, 1480102, 52948426, 83076821, 9603448, 4070983 #### [facility] [address] [place] [address] WBC corrected for nucl RBC Auto (Bld) [#/Vol] 15.8 E9/L High 4.0-11.0 [facility] Comment on above: Result Comment: Slid e reviewed by 10/18/2022 15:09:43 EDT. Performed By: #### 1 7747492, 6312057, 4161660, 25699928, 7524450, 03343694, 64423367, 7146231, 9531721 #### [facility] [address] [place] [address] CHEMISTRYOrdered By: SYSTEM SYSTEM on 10-18-2022 Ethanol [...] 25.8 s Normal 25.1 - 36.5 second(s) [facility] Auto Coag INR Coag (PPP) [Relative time] 1.0 {INR} Invalid Interpretation Code [facility] Auto Coag PT Coag (PPP) [Time] 10.8 s Normal 9.4 - 1 2.5 second(s) [facility] Auto Coag Consent for Treatmenton 10-08 Consent for Treatment [id number] #1.00CD:127 Normal [facility] ED Note-Physicianon 10-19-19 23 ED Note-Physician Basic Information Time Seen: Diego Favian 10/18/2022 14:07 Chief Complaint pt reports being [...] patient assessment and treatment. Medical Decision Making [facility] Data External documents reviewed: Not applicable My EKG interpretation: As below My CT interpretation: Not applicable My X-ray interpretation: As below My Ultrasound interpretation: Not applicable Decision rules/scores evaluated: Not applicable Discussed with: Dr. Mortensen, SHOW DOG TRAINER. Dr. Butler, cardiology. Dr. Calhoun, Hospitalist. Treatment [...] tachycardia. I will call and discuss with SHOW DOG TRAINER and cardiology. (more content not included)... Normal [facility] Comment on above: Result Comment: Elec tronically Signed By: Favian Ahumada DO\.br\Date and Time Signed: 10/18/22 19:58 EDT Ethanolon 10-18-2022 Ethanol [Mass/Vol] mg/dL Normal <=7 [facility] Comment on above: Performed By: #### 2 553075 ####[facility] [address] [place] [address] HEMATOLOGYOrdered By: SYSTEM SYSTEM on 10-18-2022 Basophils/100 [...] Microbiology an d Antimicrobial susceptibilityOrdered By: Nyla aRjan on 10-18-2022 Bacteria identified Cx Nom (U) 100 cfu/ml Mixed skin contaminants [facility] Monitor Recordon 10-18-2022 Monitor Record [id number]#[id number]:127 Normal [facility] Monitor Record [id number]#1.00CD:127 Normal [facility] Monitor Record [id number]#1.00CD:127 Normal [facility] PT & PTTon 10-18-2022 aPTT Coag (PPP) [Time] 25.8 second(s) Normal 25.1-36.5 [facility] Comment on above: Result Comment: Para [...] the same coagulation reagent and instrumentation as [facility]. Currently there are no coagulation studies available worldwide for children to 14 days, and no normal ranges. Heparin therapeutic range (represented by Anti-Factor Xa activity of 0.2 - 0.4 U/mL) corresponds to PTT of 56.6 - 109.0 sec. Performed By: #### 1 5384257, 7136583, 9228292, 97320180, 1900735, 36069700, 28252900, 8360700, 6161547 #### [facility] [address] [place] [address] INR Coag (PPP) [Relative time] 1.0 {INR} Invalid Interpretation Code [facility] Comment on above: Result Comment: INR results are specifically intended to assess patients stabilized on long-term Anticoagulation therapy suggested INR?s ?Less Intensive Anticoagulation? 2.0 ? 3.0 Conventional Range 3.0 ? 4.5 Performed By: #### 1 0575441, 0661851, 4956671, 92150800, 7179556, 80437862, 95409615, 7949569, 6491716 #### [facility] [address] [place] [address] PT Coag (PPP) [Time] 10.8 second(s) Normal 9.4-12.5 [facility] Comment on above: Result Comment: 15 [...] the same coagulation reagent and instrumentation as [facility]. Currently there are no coagulation studies available worldwide for children to 14 days, and no normal ranges. Performed By: #### 1 2752844, 6242073, 0645544, 93057283, 3601022, 82517135, 56019620, 9046863, 9830427 #### [facility] [address] [place] [address] Progress Note-Nurseon 2022 Progress Note-Nurse Patient: SIDNEY CANDELARIO Age: 22 years Sex: Female : 2000 Associated Diagnoses: None Author: Mell GRAFF, Meghna 25 week GI P0 in ER. heart tracing times 10 minutes obtained. Baseline 150bpm, moderate variability with accelerations increasing to 160. Audible movement. Pt states she can feel movement. Normal [facility] Salicylateon 10-18-2022 Salicylates [Mass/Vol] mg/dL Low 6-29 [facility] Comment on above: Performed By: #### 1 6522871, 3882170, 8123677, 39984592, 1067532, 59050592, 59220791, 4712081, 1782984 ####[facility] [address] [place] [address] TSH With T4fr Reflexon 10-18 TSH Qn 1.50 m[IU]/L Normal 0.34-5.60 [facility] Comment on above: Performed By: #### 1 0733165, 7246556, 1338592, 63785130, 5408514, 24536938, 38182943, 1521898, 8136113 ####[facility] [address] [place] [address] Troponinon 10-18-2022 Troponin I.cardiac [Mass/Vol] 47.10 pg/mL Abnormal 10.10-27.10 [facility] Comment on above: Result Comment: Crit [...] Sensitivity Troponin I Instructions For Use, [facility] [place], January 2018) Performed By: #### 2 655451 #### [facility] [address] [place] [address] Troponin 0 Hr.on 10-18-2022 Troponin I.cardiac [Mass/Vol] 42.20 pg/mL Abnormal 10.10-27.10 [facility] Comment on above: Result Comment: Crit [...] High Sensitivity Troponin I Instructions For Use, [employer], January 2018) Performed By: #### 1 5418735, 0314466, 0492451, 53619577, 2818181, 44956834, 65356675, 3032767, 6804970 ####[facility] [address] [place] [address] Troponin 3 Hr.on 10-18-2022 Troponin I.cardiac [Mass/Vol] 49.60 pg/mL Abnormal 10.10-27.10 [facility] Comment on above: Result Comment: Crit [...] conjunction with clinical conditions of myocardial infarction. ([employer] High Sensitivity Troponin I Instructions For Use, [employer], January 2018) Performed By: #### 1 4771296 #### [facility] [address] [place] [address] Troponin 6 Hr.on 10-18-2022 Troponin I.cardiac [Mass/Vol] 53.00 pg/mL Abnormal 10.10-27.10 [facility] Comment on above: Result Comment: Crit [...] High Sensitivity Troponin I Instructions For Use, [employer], January 2018) Performed By: #### 1 9272065 #### [facility] [address] [place] [address] U Drug Screenon 10-18-2022 Amphetamines Screen method >1000 ng/mL Ql (U) Negative Normal Negative [facility] Comment on above: Result Comment: Nega tive Cutoff: <1000 ng/mL Performed By: #### 2 884509, 7849889, 39424550 ####[facility] [address] [place] [address] Barbiturates Screen Ql (U) Negative Normal Negative [facility] Comment on above: Result Comment: Nega tive Cutoff: <200 ng/mL Performed By: #### 2 344714, 5041483, 63751027 ####[facility] [address] [place] [address] Benzodiazepines Ql (U) Negative Normal Negative [facility] Comment on above: Result Comment: Nega tive Cutoff: <200 ng/mL Performed By: #### 2 163984, 0941252, 40673366 ####[address] [place] [address] Cocaine Ql (U) Negative Normal Negative [facility] Comment on above: Result Comment: Nega tive Cutoff: <300 ng/mL Performed By: #### 2 160130, 7049816, 14567053 ####[facility] [address] [place] [address] Opiates Screen Ql (U) Negative Normal Negative [facility] Comment on above: Result Comment: Nega tive Cutoff: <300 ng/mL Performed By: #### 2 420806, 9821884, 92856673 ####[facility] [address] [place] [address] Phencyclidine Screen method >25 ng/mL Ql (U) Negative Normal Negative [facility] Comment on above: Result Comment: Nega tive Cutoff: <25 ng/mL These drug screen results are to be used for medical (i.e., treatment) purposes only. Unconfirmed drug screening results must not be used for non-medical purposes (e.g., employment testing, legal testing). Performed By: #### 2 863157, 3222576, 45908525 ####[facility] [address] [place] [address] Tetrahydrocannabinol Screen method >50 ng/mL Ql (U) Negative Normal Negative [facility] Comment on above: Result Comment: Nega tive Cutoff: <50 ng/mL Performed By: #### 2 546352, 1783062, 49149452 ####[facility] [address] [place] [address] UA With Cult Reflexon 2022 Bacteria LM Ql (Urine sed) 2+ /HPF Abnormal Trace [facility] Comment on above: Performed By: #### 2 735739, 4632291, 18959124 ####[facility] [address] [place] [address] Bilirubin Ql (U) Negative Normal Negative [facility] Comment on above: Performed By: #### 2 502827, 1899948, 92174373 ####[facility] [address] [place] [address] Clarity (U) SL CLOUDY Abnormal Clear [facility] Comment on above: Performed By: #### 2 902625, 5573047, 92173334 ####[facility] [address] [place] [address] Color (U) YELLOW Normal Yellow [facility] Comment on above: Performed By: #### 2 493246, 3841368, 19915261 ####[facility] [address] [place] [address] Epithelial cells.squamous LM.HPF (Urine sed) [#/Area] /[HPF] Normal 0-2 [facility] Comment on above: Performed By: #### 2 965125, 0948660, 76222613 ####[facility] [address] [place] [address] Glucose Test strip (U) [Mass/Vol] Negative Normal Negative [facility] Comment on above: Performed By: #### 2 357386, 6374212, 15042658 ####[facility] [address] [place] [address] Hemoglobin Ql (U) Negative Normal Negative [facility] Comment on above: Performed By: #### 2 936223, 2033918, 00509282 ####[address] [place] [address] Ketones (U) [Mass/Vol] Negative Normal Negative [facility] Comment on above: Performed By: #### 2 663377, 9181044, 09558579 ####[address] [address] White.plasma/White.R BC (Bld) [Mass ratio] 4-20 Normal 0-3 [facility] Comment on above: Performed By: #### 2 728101, 7481145, 39290211 ####[address] [address] Nitrite Ql (U) Negative Normal Negative [facility] Comment on above: Performed By: #### 2 592805, 9168123, 35414032 ####[address] [address] pH (U) 6.5 [pH] Invalid Interpretation Code 5.0-9.0 [facility] Comment on above: Performed By: #### 2 515228, 5439754, 16921237 ####[address] [address] Protein (U) [Mass/Vol] Negative Normal Negative [facility] Comment on above: Performed By: #### 2 570694, 8495788, 27584048 ####[address] [address] Specific gravity (U) [Rel density] 1.015 Invalid Interpretation Code 1.005-1.030 [facility] Comment on above: Performed By: #### 2 473482, 2809840, 06247795 ####[address] [address] Type of Urine collection method Clean Catch Normal [facility] Comment on above: Performed By: #### 2 057802, 3198297, 67961044 ####[address] [place] [address] Urobilinogen Qn (U) 0.2 {Yg'U}/dL Normal 0.0-1.0 [facility] Comment on above: Performed By: #### 2 148687, 0913138, 47424019 ####[facility] [address] [place] [address] WBC Auto Ql (U) 1+ Abnormal Negative [facility] Comment on above: Performed By: #### 2 068137, 9886673, 98894210 ####[facility] [address] [place] [address] WBC LM.HPF (Urine sed) [#/Area] 16-25 Abnormal 0-5 [facility] Comment on above: Performed By: #### 2 669873, 8004007, 36216156 ####[facility] [address] [place] [address] URINALYSISOrdered By: Citlali Rogers on 10-18-2022 Bacteria [...] PM) Normal Negative [facility] UA Auto SS White.plasma/White.R BC (Bld) [Mass ratio] 4-20 /HPF Normal 0-3/HPF [facility] UA Au to SS Nitrite Ql (U) Negative (10/18/22 1:37 PM) Normal Negative [facility] UA Auto SS pH (U) 6.5 *NA* (10/18/22 1:37 PM) Invalid Interpretation Code 5.0 - 9.0 [facility] UA Auto SS Protein (U) [Mass/Vol] Negative (10/18/22 1:37 PM) Normal Negative [facility] UA Auto SS Specific gravity (U) [Rel density] 1.015 *NA* (10/18/22 1:37 PM) Invalid Interpretation Code 1.005 - 1.030 [facility] UA Auto SS UA Spec Desc Clean Catch (10/18/22 1:37 PM) Normal [facility] UA Auto SS Urobilinogen Qn (U) 0.0310884 {Yg'U}/dL Normal 0.0 - 1.0 EU/dL [facility] UA Auto SS WBC Auto Ql (U) 1+ *ABN* (10/18/22 1:37 PM) Invalid Interpretation Code Negative [facility] UA Auto SS WBC LM.HPF (Urine sed) [#/Area] 16-25 /HPF Invalid Interpretation Code 0-5/HPF [facility] UA Auto SS XR Chest Single [...] mGy = na DAP = na Normal [facility] eGFRon 10-18-2022 GFR/1.73 sq M.predicted among non-blacks MDRD (S/P/Bld) [Vol rate/Area] 138 mL/min/1.73 m2 Normal >=59 [facility] Comment on above: Order Comment: Order added by Discern Expert. Result Comment: Plate Filler sydnie kidney disease could be indicated at eGFR's of less than 60 mL/min/1.73m2. Kidney failure is indicated at less than 15 mL/min/1.73m2. Performed By: #### 1 [id number], 2718526, 1314180, 37782724, 2107458, 13224346, 27608672, 3982951, 6159524 #### [facility] [address] [place] [address] US PREG ANATOMY SINGLEon US PREG ANATOMY [...] CAMELIA MENDEZ Date: 2022-10-08 15:26 Normal [facility] CHLAMYDIA/GONOCOCCUS TETO (SW AB/URINE/PAPon 08-28-2022 Chlamydia trachomatis, TETO Negative Normal Negative [facility] Comment on above: Performed By: #### C T/NGNA #### [facility] [address] [place] [address] Dr. Maribell Perea Neisseria gonorrhoeae, TETO Negative Normal Negative [facility] Comment on above: Performed By: #### C T/NGNA #### [facility] [address] [place] [address] Dr. Maribell Perea VAGINITIS/VAGINOSIS DNA PROB Romeo 08-25-2022 Beatrice species Negative Normal Negative [facility] Comment on above: Performed By: #### V AGINT ####[facility] [address] [place], [place] [address]Dr. Maribell Perea Gardnerella vaginalis Negative Normal Negative [facility] Comment on above: Performed By: #### V AGINT ####[facility] [address] [place], [place] [address]Dr. Maribell Perea Trichomonas vaginalis Negative Normal Negative [facility] Comment on above: Performed By: #### V AGINT ####[facility] [address] [place], [place] [address]Dr. Maribell Perea HEP B SURFACE ANTIGEN SCREEN on 07-25-2022 HBsAg Screen Negative Normal Negative [facility] Comment on above: Performed By: #### H BSANS #### [facility] [address] [place] [address] Dr. Maribell Perea HEPATITIS C VIRUS AB W/ REFL EX QUANTon 07-25-2022 HCV AB Non-Reactive Normal Non Reactive [facility] Comment on above: Performed By: #### H CVPCRR #### [facility] [address] [place] [address] Dr. Maribell Perea Interpretation: Comment Normal [facility] Comment on above: Result Comment: Not infected with HCV unless early or acute infection is suspected (which may be delayed in an immunocompromised individual), or other evidence exists to indicate HCV infection. Performed By: #### H CVPCRR #### [facility] [address] [address] [address] Maribell Perea HIV 1 AND 2 WITH REFLEXon HIV Screen 4th Generation wRfx Non-Reactive Normal Non Reactive [facility] Comment on above: Result Comment: HIV Negative HIV-1/HIV-2 antibodies and HIV-1 p24 antigen were NOT detected. There is no laboratory evidence of HIV infection. Performed By: #### H IV12 #### [facility] [address] [address] [address] Maribell Perea RPR QUANTon 07-25-2022 Rapid Plasma Reagin, Quant Non-Reactive Normal NonRea<1:1 [facility] Comment on above: Result Comment: Plea se Note: This test does not meet current guidelines for screening and diagnosis of syphilis. This test is intended for following treatment response in patients being treated for syphilis infection. To screen for syphilis infection, a reflex cascade that includes both RPR and a treponema-specific assay should be utilized, such as Treponema pallidum (Syphilis) Screening [place] (419377) or Rapid Plasma Reagin (RPR) Test With Reflex to Quantitative RPR and Confirmatory Treponema pallidum Antibodies (976378). Performed By: #### R PRQ #### [facility] [address] [address] [address] Maribell Perea RUBELLA AB IGGon 07-25-2022 Rubella Antibodies, IgG <0.90 Critically low Immune > 0.99 [facility] Comment on above: Result Comment: Non- immune <0.90 Equivocal 0.90 - 0.99 Immune >0.99 Performed By: #### R UBIGG #### [facility] [id number] Maribell Perea CULTURE URINEon 07-23-2022 CULTURE URINE Culture Observations: NO GROWTH. Normal [facility] Comment on above: Performed By: #### U RCX ####[facility] [address] [address]Dr. Maribell Perea GLYCOHEMOGLOBIN A1Con 2022 ADA RECOMMENDATION SEE BELOW Normal [facility] Comment on above: Result Comment: ADA RECOMMENDED LIMIT 4.0 - 6.0 ADA THERAPEUTIC TARGET < 7.0 ACTION SUGGESTED > 7.0 Performed By: #### A 1C #### [facility] [address] [address] [address] Maribell Perea Glucose [Mass/Vol] 97 mg/dL Normal [facility] Comment on above: Performed By: #### A 1C #### [facility] [address] [place], [place] [address] Dr. Maribell Perea HbA1c (Bld) [Mass fraction] 5.0 % Normal 4.5-6.2 [facility] Comment on above: Performed By: #### A 1C #### [facility] [address] [address] [address] Maribell Perea BEULAH BOX TEST PT SEND OUTo n 07-23-2022 SENT TO REF LAB 07/23/2022 Normal [facility] Comment on above: Performed By: #### N BOX #### [facility] [address] [address] [address] Maribell Perea TYPE AND SCREENon 07-23-2022 TYPE AND SCREEN Negative Normal [facility] Comment on above: Performed By: #### T NS ####[facility] [address] [place], [place] [address]VvDr. Maribell Perea US PREG TVon 06-28-2022 US [...] BY US CRL: 9 weeks 2 days SMAIR BY US CRL: 01/29/2023 IMPRESSION: 1. Single live intrauterine . Electronically authenticated by: CAMELIA MENDEZ Date: 2022-06-28 09:17 Normal [facility] Vital Signs Date Time Vital Sign Value Performing Clinician Facility 03-30-2024 09:03-0400 Body mass index (BMI) [Ratio] 22.09 kg/m2 Irving Delores DO Work Phone: [facility] 03-30-2024 09:03-0400 Body weight 51.31 kg Irving Delores DO Work Phone: [facility] 03-30-2024 09:03-0400 Diastolic blood pressure 68 mm[Hg] Irving Delores DO Work Phone: [facility] 03-30-2024 09:03-0400 Systolic blood pressure 102 mm[Hg] Irving Delores DO Work Phone: [facility] 03-23-2024 14:30-0400 Body mass index (BMI) [Ratio] 22.85 kg/m2 Irving Delores DO Work Phone: [facility] 03-23-2024 14:30-0400 Body weight 53.07 kg Irving Delores DO Work Phone: [facility] 03-23-2024 14:30-0400 Diastolic blood pressure 70 mm[Hg] Irving Delores DO Work Phone: [facility] 03-23-2024 14:30-0400 Systolic blood pressure 106 mm[Hg] Irving Delores DO Work Phone: [facility] 03-19-2024 15:39-0400 Body mass index (BMI) [Ratio] 22.26 kg/m2 Luana VALDOVINOS Work Phone: [facility] 03-19-2024 15:39-0400 Body weight 51.71 kg Luana VALDOVINOS Work Phone: [facility] 03-19-2024 15:39-0400 Diastolic blood pressure 72 mm[Hg] Luana VALDOVINOS Work Phone: [facility] 03-19-2024 15:39-0400 Systolic blood pressure 110 mm[Hg] Luana VALDOVINOS Work Phone: [facility] 06-18-2023 15:11-0500 Blood Pressure Location [facility] 06-18-2023 15:11-0500 Body temperature 97.88 [degF] [facility] 06-18-2023 15:11-0500 Diastolic blood pressure 76 mm[Hg] [facility] 06-18-2023 15:11-0500 Heart rate 90 /min [facility] 06-18-2023 15:11-0500 SaO2% (BldA) [Mass fraction] 98 % [facility] 06-18-2023 15:11-0500 Systolic blood pressure 116 mm[Hg] [facility] 10-19-2022 13:00-0400 Hourly Rounding Jona Cristin [facility] 10-19-2022 13:00-0400 Promise to Return Jona Cristin [facility] 10-19-2022 12:23-0400 Heart rate 101 /min Jona Cristin [facility] 10-19-2022 12:23-0400 SaO2% (BldA) [Mass fraction] 98 % Jona Cristin [facility] 10-19-2022 12:23-0400 Body temperature 98.06 [degF] Jona Cristin [facility] 10-19-2022 12:23-0400 Diastolic blood pressure 65 mm[Hg] Jona Cristin [facility] 10-19-2022 12:23-0400 Mean blood pressure 77 mm[Hg] Jona Cristin [facility] 10-19-2022 12:23-0400 Systolic blood pressure 102 mm[Hg] Jona Cristin [facility] 10-19-2022 12:15-0400 Hourly Rounding Jona Cristin [facility] 10-19-2022 12:15-0400 Promise to Return Jona Cristin [facility] 10-19-2022 11:21-0400 Hourly Rounding Jona Cristin [facility] 10-19-2022 11:21-0400 Promise to Return Jona Cristin [facility] 10-19-2022 08:24-0400 Heart rate 103 /min Jona Cristin [facility] 10-19-2022 08:24-0400 SaO2% (BldA) [Mass fraction] 98 % Jona Cristin [facility] 10-19-2022 08:24-0400 Diastolic blood pressure 61 mm[Hg] Jona Cristin [facility] 10-19-2022 08:24-0400 Mean blood pressure 72 mm[Hg] Jona Cristin [facility] 10-19-2022 08:24-0400 Systolic blood pressure 93 mm[Hg] Jona Cristin [facility] 10-19-2022 08:23-0400 Body temperature 98.24 [degF] Jona Cristin [facility] 10-19-2022 05:12-0400 Heart rate 95 /min Jona Cristin [facility] 10-19-2022 05:12-0400 SaO2% (BldA) [Mass fraction] 98 % Jona Cristin [facility] 10-19-2022 05:12-0400 Diastolic blood pressure 41 mm[Hg] Jona Cristin [facility] 10-19-2022 05:12-0400 Mean blood pressure 56 mm[Hg] Jona Cristin [facility] 10-19-2022 05:12-0400 Systolic blood pressure 86 mm[Hg] Jona Cristin [facility] 10-19-2022 05:12-0400 Body temperature 98.6 [degF] Jona Cristin [facility] 10-18-2022 22:59-0400 Respiratory rate 20 /min Jona Cristin [facility] 10-18-2022 21:45-0400 Mean blood pressure 84 mm[Hg] Jona Cristin [facility] 10-18-2022 21:45-0400 Respiratory rate 15 /min Jona Cristin [facility] 10-18-2022 21:00-0400 Mean blood pressure 82 mm[Hg] Jona Cristin [facility] 10-18-2022 21:00-0400 Respiratory rate 17 /min Jona Cristin [facility] 10-18-2022 20:00-0400 Mean blood pressure 89 mm[Hg] Jona Cristin [facility] 10-18-2022 14:08-0400 gluc 93 mg/dL Jona Cristin [facility] 10-18-2022 14:08-0400 gluc Jona Cristin [facility] 10-18-2022 14:08-0400 Respiratory rate 15 /min Jona Cristin [facility] 10-18-2022 13:30-0400 Heart rate 108 /min Jona Cristin [facility] 10-18-2022 13:30-0400 Respiratory rate 16 /min Jona Cristin [facility] Encounters Encounter Date Encounter Type Care Provider Facility Start: 03-30-2024 End: 03-30-2024 Bamboo flowsheet Irving Delores DO Work Phone: [facility] Start: 03-30-2024 End: 03-30-2024 Bamboo flowsheet Irving Delores DO Work Phone: [facility] Start: 03-30-2024 End: 03-30-2024 ambulatory IRVING DELORES Not Available Start: 03-30-2024 End: 03-30-2024 flow sheet Irving [...] 03-19-2024 Bamboo flowsheet Luana VALDOVINOS Work Phone: [facility] Start: 03-19-2024 End: 03-19-2024 Bamboo flowsheet Luana VALDOVINOS Work Phone: [facility] Start: 03-05-2024 End: 03-05-2024 ambulatory [...] End: 06-18-2023 Lab Drop off Mike Fuentes [facility] Start: 06-18-2023 End: 06-18-2023 Patient encounter procedure Mike Polo [facility] Start: 10-22-2022 End: 10-22-2022 ambulatory Roslyn Valdes Facility:CD:[id number] Start: 10-18-2022 End: 10-19-2022 ambulatory Sahil BUTLER Facility:[facility] Start: 10-18-2022 End: 10-19-2022 Observation Jona Amaral [facility] Start: 10-06-2022 End: 10-07-2022 ambulatory LUANA BEJARANO . Facility:[facility] Start: 08-23-2022 End: 08-23-2022 ambulatory LUANA BEJARANO . Facility:[facility] Start: 07-23-2022 End: 07-24-[address] IRVING LIMON . Facility:[facility] Start: 06-28-2022 End: 06-29-[address] IRVING LIMON . Facility:[facility] Start: 06-06-2022 ambulatory Esperanza Dong y:[facility] Procedures Date Procedure Procedure Detail Performing Clinician Start: 03-30-2024 Urnls dip stick/tabl et rgnt non-auto w/o micrscp Irving Delores DO Work Phone: Start: 03-26-2024 TB UA (CLEAN/CATCH) HOME CARE SPECIALIST/MICRO IF IND. Irving Delores DO Work Phone: Start: 03-19-2024 Urnls dip stick/tabl et rgnt non-auto w/o micrscp Luana Bejarano PA Work Phone: Plan of Treatment Date Care Activity Detail Author Start: 03-30-2024 End: 03-30-2024 Patient encounter procedure 03/30/2024 8:40 AM EDT Routine [facility] [address] [place] [address] Irving Limon DO [address] [place], [place] [id number] [facility] Start: 03-23-2024 End: 03-23-2025 [...] trimester Expected: 03/19/2024 (Approximate), Expires: 03/19/2025 [facility] Work Phone: Comment on above: Expected: 03/19/2024 (Approximate), Expires: 03/19/2025 Immunizations Immunization Date Immunization Notes Care Provider Ekaterina wilson 02-09-2021 meningococcal B vacc ine, recombinant, OMV, adjuvanted [facility] [place] 02-09-2021 meningococcal oligosaccharide (groups A, C, Y and W-135) diphtheria toxoid conjugate vaccine (MCV4O) [facility] [place] 02-09-2021 hepatitis A vaccine, pediatric/adolescent dosage, 2 dose schedule [facility] 07-14-2018 hepatitis A vaccine, adult dosage [facility] 07-14-2018 HPV, unspecified formulation [facility] 07-14-2018 meningococcal B vacc ine, fully recombinant [facility] 12-26-2015 HPV, unspecified formulation [facility] 12-26-2015 meningococcal ACWY vaccine, unspecified formulation [facility] 12-26-2015 tetanus toxoid, unspecified formulation [facility] 04-28-2009 influenza virus vacc ine, unspecified formulation [facility] [place] 04-28-2008 influenza virus vacc ine, unspecified formulation [facility] 02-26-2008 diphtheria, tetanus toxoids and acellular pertussis vaccine [facility] 02-26-2008 measles, mumps and rubella virus vaccine JonaMongoSluiceer [facility] [place] 02-26-2008 poliovirus vaccine, unspecified formulation [facility] [place] 02-26-2008 varicella virus vaccine Vincent Kloud [employer] [facility] 10-27-2003 diphtheria, tetanus toxoids and acellular pertussis vaccine [facility] 10-27-2003 haemophilus influenz ae type b vaccine, PRP-OMP conjugate [facility] 10-27-2003 measles, mumps and rubella virus vaccine [employer] 10-27-2003 varicella virus vaccine Vincent Kloud [employer] [facility] 04-28-2003 diphtheria, tetanus toxoids and acellular pertussis vaccine [employer] 04-28-2003 haemophilus influenz ae type b vaccine, PRP-OMP conjugate [facility] 04-28-2003 hepatitis B vaccine, pediatric or pediatric/adolescent dosage [facility] 04-28-2003 pneumococcal conjuga te vaccine, 13 valent [facility] 04-28-2003 poliovirus vaccine, unspecified formulation [facility] 2002 diphtheria, tetanus toxoids and acellular pertussis vaccine [employer] [facility] 2002 haemophilus influenz ae type b vaccine, PRP-OMP conjugate [facility] 2002 pneumococcal conjuga te vaccine, 13 valent Jona Cristin [facility] 2002 poliovirus vaccine, unspecified formulation [facility] 2002 diphtheria, tetanus toxoids and acellular pertussis vaccine [facility] 2002 haemophilus influenz ae type b vaccine, PRP-OMP conjugate [employer] 2002 hepatitis B vaccine, pediatric or pediatric/adolescent dosage [facility] 2002 pneumococcal conjuga te vaccine, 13 valent [facility] 2002 poliovirus vaccine, unspecified formulation [facility] 2002 hepatitis B vaccine, pediatric or pediatric/adolescent dosage [facility] Payers Date Payer Category Payer [facility] er [id number] 2023 Unknown BCBS BCBS xxxxxx [id number] 2023-Present [phone] [address] [place] [address] [id number] 2023 Unknown [id number] 2023 Private Health Insurance [id number] 2021 Private Health Insurance 2002 Unknown [id number] 93 2002 Unknown [id number] 2.16.840.1.754089.3.579.2.5 93 2002 Unknown [id number] 2.16.840.1.566621.3.579.2.5 93 2002 Unknown [id number] 2.16.840.1.649948.3.579.2.5 93 2002 Unknown [id number] 2.16.840.1.120261.3.579.2.7 27 2002 Unknown [id number] 2.16.840.1.142499.3.579.2.7 27 2002 Unknown [id number] 2.16.840.1.880374.3.579.2.1 259 2002 Unknown [id number] 2.16.840.1.858674.3.579.2.1 259 2002 Unknown [id number] 2.16.840.1.911821.3.579.2.1 259 2002 Unknown [id number] 2.16.840.1.065248.3.579.2.1 259 2002 Unknown [id number] 2.16.840.1.182688.3.579.2.1 259 2002 Unknown [id number] 2.16.840.1.241027.3.579.2.1 259 2002 Unknown [id number] 2.16.840.1.630727.3.579.2.1 259 2002 Unknown [id number] 2.16.840.1.324045.3.579.2.1 259 2002 Unknown [id number] 2.16.840.1.189392.3.579.2.1 259 2002 Unknown [id number] 2.16.840.1.663182.3.579.2.1 259 2002 Unknown [id number] 2.16.840.1.893719.3.579.2.1 259 2002 Unknown [id number] 2.16.840.1.172686.3.579.2.1 259 1959 Self-pay 1959 Unknown [id number] Unknown [id number] 2.16.840.1.906469.3.579.2.5 93 Social History Date Type Detail Facility Tobacco Never smoker [facility] Comment on above: denies Tobacco smoking status No Smokin g Status Entered [facility] Start: 09-05-2023 Sex Assigned At Female F [facility] Start: 06-18-2023 End: 10-29-2023 Tobacco smoking status Never smoked tobacco (finding) [facility] Comment on above: denies Tobacco smoking status Never Fishe [facility] Comment on above: denies [...] Start: 2000 Sex [facility] Start: 10-29-2022 Gender identity Identifies as female gender (finding) [facility] Healthcare Goals Date Patient Goal Desired Activity /State Personal health goal Functional Status Date Assessment Result Facility 06-18-2023 Functional Status N/A [facility] 10-18-2022 Functional Status N/A [facility] 10-18-2022 Functional Status [facility] Clinical Notes 10-18-2022 to 03-30-2024 Nicole Ortiz [...] nursing note reviewed. Exam conducted with a senior software analyst present. Vitals: Estimated body mass index is [...] at 0500 and to be induced in [facility]. Dr. Limon called [facility] and spoke to Julia to change date of IOL to Saturday. Patient to return to clinic for 6 week post . Documented by Nicole Ortiz LPN on behalf of: Irving Limon DO documented in this encounter [facility] 03-23-2024 History of Present illness Narrative [...] week for routine OB appointment. Documented by Nciole Ortiz LPN on behalf of: Irving Limon DO documented in this encounter [facility] 03-19-2024 History of Present illness Narrative [...] of: ARUNA Singh documented in this encounter [facility] 06-18-2023 Hospital Discharge instructions Patient Education 06/18/2023 16:34:28 Pharyngitis, Kkfh-ho-Poje Pharyngitis Pharyngitis is a sore throat (pharynx). [...] Follow these instructions at home: Medicines Take toae-imt-ltqqgzi and prescription medicines only as told by [...] and water are not available, use hand animal nurse. Do not touch your eyes, nose, [...] provider. Document Revised: 08/23/2021 Document Reviewed: 08/23/2021 [employer] Patient Education 2022 [employer]. 06/18/2023 16:34:25 Viral Illness, Adult Viral Illness, [...] Medicines to relieve symptoms. These can include gqjs-zqs-jyxkrwb medicine for pain and fever, medicines for cough or congestion, and medicines to relieve diarrhea. Antiviral medicines. These medicines are available only for certain types of viruses. Some viral illnesses can be prevented with vaccinations. A common example is the flu shot. Follow these instructions at home: Medicines Take ldgj-emp-uzcmlkc and prescription medicines only as told by [...] and water are not available, use hand animal nurse. Avoid touching your nose, eyes, and [...] provider. Document Revised: 10/10/2020 Document Reviewed: 04/05/2020 [employer] Patient Education 2022 [employer]. [facility] 06-18-2023 Evaluation + Plan note Diagnostic Tests PendingGroup A Strep by PCR 06/18/23 [facility] 01-23-2023 Note Procedure History None. Hospital [...] drug abuse. ED physician discussed case with principal military analyst Dr. Butler and SHOW DOG TRAINER Dr. Mortensen. Telemetry monitoring and echocardiogram was [...] this is written under the wrong FIN [facility] Comment on above: Result Comment: Elec [...] drug abuse. ED physician discussed case with principal military analyst Dr. Butler and SHOW DOG TRAINER Dr. Mortensen. Telemetry monitoring and echocardiogram was [...] 78.2 % Lymph Auto - 12.3 % Holt Auto - 8.5 % Eos Auto - 0.6 % Basophil Auto - 0.4 % Neutro Absolute - 12.7 E9/L Lymph Absolute - 2.0 E9/L Holt Absolute - 1.4 E9/L Eos Absolute - [...] NEGATIVE1 UA Nitri (more content not included)... [facility] Comment on above: Result Comment: Elec tronically Signed By: Cristin MOSS, Jona S\.br\Date and Time Signed: 11/27/22 13:28 EDT 10-20-2022 [...] in this patient's care. Jono Mortensen M.D. gypsy Dictated: 10/19/2022 [id number] Transcribed: 10/19/2022 cc:Irving Limon D.O. [facility] Comment on above: Result Comment: Elec tronically Signed By: Festus MOSS, Jono Layne\.br\Date and Time Signed: 10/20/22 02:24 EDT 10-19-2022 Note Order received, corinne t reviewed. Attempted PT evaluation at 1424 on 10/19/22. Pt. is out of room and has been discharged from acute medical facility prior to completion of PT evaluation. No PT charges. [facility] 10-19-2022 Note Echocardiology Procedure Exam Date/Time Accession # Ordering Dr. Swati Hernandez 10/19/2022 12:02 EDT [id number] Favian Ahumada DO Complete CPT code [id number] Reason for Exam (Echo Transthoracic Complete) Syncope Report [facility] [address] [place] [address] Adult Echocardiogram Report Name: SIDNEY CANDELARIO Study Date: 10/19/2022 11:33 AM BP: 93/61 mmHg Patient Location: [address] [place] [address] HR: 95 : 2000 Gender: Female Height: 60 in Age: 22 yrs Ethnicity: [facility] Weight: 110 lb Reason For Study: Syncope BSA: 1.4 m2 History: No cardiac history per patient Ordering Physician: Diego^Ale Performed By: Ro Guerrero, RUST Interpretation Summary Ejection Fraction = 65-70%. The [...] Sahil Butler MD Transcribed by: MAYRA Technologist: [facility] 10-19-2022 Evaluation + Plan note Extrac [...] made to ensure accuracy, however, inadvertently computerized die stamper mistakes may be present. Dr. Jona Bowser [facility] Hospitalist Ordered: acetaminophen, 650 mg = [...] Weight Diagnostic Tests Pending * Cortisol 10/19/22 [facility]05-12-2023 NoteChief Complaint Dizziness Reason for Consultation [...] not improve, she sought medical attention at [place] emergency room. In theemergency room her EKG [...] check Historical No q (more content not included)...[facility] Result Comment: Electronically Signed By: Isreal MOSS, Sahil Swartz.br\Date and Time Signed: 10/19/22 10:01 [id number] Hospital Discharge instructions Patient Education 10/19/2022 09:40:44 [...] Treatment for this condition includes: Antibiotic medicine. Duxn-ofs-ftrqjjs medicines to treat discomfort. Drinking enough water [...] Follow these instructions at home: Medicines Take jsil-okv-lxrxdut and prescription medicines only as told by [...] provider. Document Revised: 01/06/2021 Document Reviewed: 01/06/2021 [employer] Patient Education 2022 [employer]. 10/19/2022 09:40:42 Near-Syncope, Qdzn-os-Evcy Near-Syncope Near-syncope is when you suddenly feel [...] Follow these instructions at home: Medicines Take donl-vjz-tlprrsr and prescription medicines only as told by [...] provider. Document Revised: 10/05/2021 Document Reviewed: 10/05/2021 [employer] Patient Education 2022 [employer]. Follow Up Care 10/18/2022 13:28:40 With:Sahil Butler MD Address: [address] [place] [address] [phone] When:2 weeks With:Roslyn Valdes MD, [facility] Address: [phone] When:2 to 4 days [facility]05-11-2023 NoteChief Complaint pt reports being 27 [...] drug abuse. ED physician discussed case with principal military analyst Dr. Butler and SHOW DOG TRAINER Dr. Mortensen. Telemetry monitoring and echocardiogram was [...] Lymph Auto: 11.2 % Low (10/18/22 14:39:00) Holt Auto: 8.3 % (10/18/22 14:39:00) Eos Auto: 0.5 % (10/18/22 14:39:00) Basophil Auto: 0.6 % (10/18/22 14:39:00) Neutro Absolute: 12.5 E9/L High (10/18/22 14:39:00) Lymph Absolute: 1.8 E9/L (10/18/22 14:39:00) Holt Absolute: 1.3 E9/L High (10/18/22 14:39:00) Eos [...] assessed the patient i (more content not included)...[facility]Result Comment: Electronically Signed By: Cristin MOSS, Jona Rivera\.br\Date and Time Signed: 10/18/22 19:03 EDTEvaluation note* Diagnosis Third trimester state, incidental 36 weeks gestation of [facility] Diagnosis Third trimester state, incidental SGA (small for gestational age) Povku-wjm-xtyot without mention of malnutrition, unspecified (weight) 37 weeks gestation of [facility]* Diagnosis Third trimester state, incidental [facility] Narrative No data available for this section [facility] No data available for this section [facility] No data available for this section [facility] Summary Purpose Family History No Family History Records FoundNo Family History Records Found No data available for this section No data available for this section No Family History Records Found Advance Directives No Advanced Directives Records FoundNo Advanced Directives Records FoundNo Advanced Directives Records Found Additional Source Comments INFORMATION SOURCE (unrecogn ized section and content) DATE CREATED AUTHOR 10/13/2022 [facility] DATE CREATED AUTHOR AUTHOR'S ORGANIZ ATION 01/24/2023 Osmar Rodriguez [facility] DATE CREATED AUTHOR AUTHOR'S ORGANIZ ATION 03/31/2024 [facility] Patient Care team informatio n (unrecognized section and content) Personnel Name: Roslyn Valdes MD Address: Address: [address] [place] [address] Personnel Name: Roslyn Valdes MD Address: Address: [address] [place] [address] Personnel Name: Roslyn Valdes MD Address: Address: [address] [place] [address] Reason for Visit (unrecogniz ed section and [...] BE BASED ON THE PRIMARY CLINICAL RECORDS. [employer] provides no warranty or guarantee of the accuracy or completeness of information in this document.
[2024-04-01] MEDS: 0.9 % SODIUM CHLORIDE 1,000 ML 125 ML IV (05:57)
[2024-04-01 06:02] LABS: Hematocrit 36.8 % (36.0-48.0); Hemoglobin 11.7 g/dL (12.0-16.0); Mean Corpuscular HGB Conc 31.8 g/dL (29.9-35.2); Mean Corpuscular Hemoglobin 26.4 pg (26.7-34.0); Mean Corpuscular Volume 82.9 fL (81.0-99.0); Mean Platelet Volume 11.3 fL (9.5-13.5); Platelet Count 176 10^3/uL (150-450); Red Blood Count 4.44 10^6/uL (4.20-5.40); Red Cell Distribution Width 14.4 % (11.0-15.0); White Blood Count 11.9 10^3/uL (4.0-11.0)
[2024-04-01] MEDS: OXYTOCIN/0.9 % SODIUM CHLORIDE 10 UNITS/500 ML PLAST..BAG 6 UNIT IV (06:09)
[2024-04-01 06:15] LABS: Amphetamine Screen Urine NEGATIVE (NEGATIVE); Barbiturates Screen Urine NEGATIVE (NEGATIVE); Benzodiazepines Screen Urine NEGATIVE (NEGATIVE); Buprenorphine Screen Urine NEGATIVE (NEGATIVE); Cannabinoid Screen Urine NEGATIVE (NEGATIVE); Cocaine Screen Urine NEGATIVE (NEGATIVE); Methadone Screen Urine NEGATIVE (NEGATIVE); Methamphetamines Screen Urine NEGATIVE (NEGATIVE); Opiate Screen Urine NEGATIVE (NEGATIVE); Oxycodone Screen Urine NEGATIVE (NEGATIVE); Phencyclidine Screen Urine NEGATIVE (NEGATIVE); Tricyclic Antidepressant Urine NEGATIVE (NEGATIVE)
[2024-04-01] MEDS: ROPIVACAINE HCL/PF 400 MG/200 ML PREMIX 6 MG EPIDURAL (09:40)
[2024-04-01] MEDS: 0.9 % SODIUM CHLORIDE 1,000 ML 1000 ML IV (09:40)
[2024-04-01] MEDS: ONDANSETRON PF 4 MG/2 ML VIAL IV (11:09)
--- NOTE | 2024-04-01 13:17 | PM.OBPRCVD ---
Procedure Intrapartal events: None Induction method: per pitocin protocol Delivery augmentation: rupture of membranes and pitocin Delivery monitor: external FHT and external uterine Route of delivery: Episiotomy Description: none L&D Laceration Description: none Estimated blood loss (mL): 200 Anesthesia type: Epidural Disposition: floor Delivery date: 04/01/24 Gender: female presentation: vertex Placental delivery description: Spontaneous cord description: 3 Vessels
[2024-04-01] MEDS: IBUPROFEN 600 MG TABLET PO ×2 (13:57→20:51)
[2024-04-01] MEDS: OXYTOCIN/0.9 % SODIUM CHLORIDE 20 UNITS/1,000 ML PLAST..BAG 125 UNIT IV (14:00)
[2024-04-01] MEDS: ACETAMINOPHEN 325 MG TABLET 650 MG PO (18:09)
--- NOTE | 2024-04-01 18:35 | PC.NURSE ---
Up to BR, pericare reviewed and linens changed, ice pack provided for low back pain
[2024-04-02] MEDS: OXYTOCIN/0.9 % SODIUM CHLORIDE 20 UNITS/1,000 ML PLAST..BAG 125 UNIT IV (00:04)
[2024-04-02] MEDS: ACETAMINOPHEN 325 MG TABLET 650 MG PO (00:09)
--- NOTE | 2024-04-02 00:46 | PC.NURSE ---
2345 Pt calls out for nurse. RN to bedside. Pt reports feeling a lot of abdominal pain and like she's leaking a lot of blood out. RN pulls pad back and palpates fundus and a large clot is expelled. Chux is applied under pt and pad is removed. RN continues fundal massage and multiple large clots expel onto chux, Impression Printer calls for DAJUAN Murdock to assist and help change chux/pads. Fundus does firm easily and is 1 below umbilicus. 2348 Vitals are obtained as charted. 2353 RN remains at bedside and pt reports feeling like she had another gush. RN palpates fundus again and more clots expel onto pad. [address] Estrella regarding increase lochia with many large clots and orders are received to hang a bag of 1000 ml NS with 20 units of pitocin. 0004- Pitocin 20 unit in 1000 ml NS bag hung at 999 ml/hr for 300 mL. Fundus is midline, firm 1 below umbilicus. Bleeding is small-moderate. 0010 Pt up to bathroom to void. RN in to assist. Lochia to pad is small and removed. Pt voids, pericare is completed, new pad applied and RN assists her back to bed. 0015 Fundus remains midline, firm, 1 below umbilicus. Bleeding small at this time. IV rate is decreased to 125 ml/hr and infusing without difficulty. Plan of care ongoing.
--- NOTE | 2024-04-02 01:22 | PC.NURSE ---
Chux and pads containing bleeding/clots are weighed-dry weight is deducted and the total is 975 grams. RN in to reassess pt, fundus and bleeding and is noted to be Firm, midline and 1 below umbilicus with small bleeding on pad. No clots are presents. Pt denies any complaints and reports feeling better. IV continues at 125 ml/hr to right wrist.
[2024-04-02 04:27] VITALS: BP 123/58; PULSE 88
[2024-04-02 04:28] VITALS: BP 123/58; PULSE 88; TEMP 36.8
[2024-04-02] MEDS: IBUPROFEN 600 MG TABLET PO ×2 (04:32→16:49)
[2024-04-02 06:06] LABS: Basophils Absolute Auto 0.1 10^3/uL (0.0-0.1); Basophils Percent Auto 0.4 % (0.2-2.0); Eosinophils Percent Auto 0.2 % (0.9-7.0); Hemoglobin 7.2 g/dL (12.0-16.0); Immature Granulocytes Pct Auto 1.4 % (0.0-0.5); Lymphocytes Absolute Auto 2.7 10^3/uL (1.2-3.8); Lymphocytes Percent Auto 18.1 % (20.5-60.0); Mean Corpuscular HGB Conc 32.4 g/dL (29.9-35.2); Mean Corpuscular Volume 83.1 fL (81.0-99.0); Monocytes Absolute Auto 1.2 10^3/uL (0.3-0.8); Monocytes Percent Auto 8.1 % (1.7-12.0); Neutrophils Absolute Auto 10.6 10^3/uL (1.4-6.5); Neutrophils Percent Auto 71.8 % (43.0-75.0); Platelet Count 129 10^3/uL (150-450); Red Blood Count 2.67 10^6/uL (4.20-5.40); Red Cell Distribution Width 14.6 % (11.0-15.0); White Blood Count 14.8 10^3/uL (4.0-11.0)
[2024-04-02 06:14] LABS: Hematocrit 22.2 % (36.0-48.0)
--- NOTE | 2024-04-02 07:40 | P.OBPN_ITS ---
OB - PN: Subj Subjective Patient comments: no complaints and pain well controlled [place] status: doing well Exam Constitutional Vital Signs, click to edit/add: Last Vital Signs Temp 98.3 F 04/02/24 04:28 Pulse 88 04/02/24 04:28 Resp 16 04/02/24 04:28 BP 123/58 04/02/24 04:28 O2 Del Method Room Air 04/02/24 04:28 Documenting provider has reviewed patient's vital signs: yes Common normals: no apparent distress Respiratory Common normals: normal respiratory effort and clear to auscultation bilaterally Cardio Common normals: regular rate and regular rhythm GI Common normals: Normal to inspection, nondistended, normoactive bowel sounds present Extremity Common normals: no calf tenderness Results Labs Labs: Short CBC 04/02/24 Range/Units 05:55 WBC 14.8 H (4.0-11.0) 10^3/uL Hgb 7.2 L (12.0-16.0) g/dL Hct 22.2 L* (36.0-48.0) % Plt Count 129 L (150-450) 10^3/uL OB - PN: A/P Plan - Vaginal Delivery day: 1 Time Spent with Patient Time: Total time spent is greater than 50% in coordination of care (as documented) at patient's floor/unit and/or counseling patient: Total time spent with greater than 50% in coordination of care (as documented) at patient's floor/unit and/or counseling patient: less than 15 minutes
[2024-04-02 09:23] VITALS: BP 106/52; PULSE 85
[2024-04-02] MEDS: FERROUS SULFATE 325 MG TABLET PO (09:25)
[2024-04-02 09:30] VITALS: BP 106/52; PULSE 85; TEMP 36.6
[2024-04-02] MEDS: RHO(D) IMMUNE GLOBULIN 1,500 UNIT SYRINGE 1500 UNIT IV (10:46)
[2024-04-02 16:38] VITALS: BP 114/65; PULSE 93
[2024-04-02 16:58] VITALS: BP 114/65; PULSE 93; TEMP 36.8
[2024-04-03 00:35] VITALS: TEMP 36.9
[2024-04-03 00:40] VITALS: BP 114/66; PULSE 86
[2024-04-03 06:19] LABS: Basophils Absolute Auto 0.1 10^3/uL (0.0-0.1); Basophils Percent Auto 0.6 % (0.2-2.0); Eosinophils Absolute Auto 0.1 10^3/uL (0.0-0.7); Eosinophils Percent Auto 1.2 % (0.9-7.0); Hematocrit 24.5 % (36.0-48.0); Hemoglobin 7.6 g/dL (12.0-16.0); Immature Granulocytes Abs Auto 0.16 10^3/uL (0.00-0.03); Immature Granulocytes Pct Auto 1.6 % (0.0-0.5); Lymphocytes Absolute Auto 3.2 10^3/uL (1.2-3.8); Lymphocytes Percent Auto 31.2 % (20.5-60.0); Mean Corpuscular Hemoglobin 26.3 pg (26.7-34.0); Mean Corpuscular Volume 84.8 fL (81.0-99.0); Mean Platelet Volume 11.2 fL (9.5-13.5); Monocytes Absolute Auto 0.7 10^3/uL (0.3-0.8); Monocytes Percent Auto 7.1 % (1.7-12.0); Neutrophils Absolute Auto 5.9 10^3/uL (1.4-6.5); Neutrophils Percent Auto 58.3 % (43.0-75.0); Platelet Count 153 10^3/uL (150-450); Red Blood Count 2.89 10^6/uL (4.20-5.40); White Blood Count 10.1 10^3/uL (4.0-11.0)
--- NOTE | 2024-04-03 06:35 | PM.OBPN ---
OB - PN: Subj Subjective Patient comments: no complaints and pain well controlled [place] status: doing well Exam Constitutional Vital Signs, click to edit/add: Last Vital Signs Temp 98.3 F 04/02/24 16:58 Pulse 86 04/03/24 00:40 Resp 16 04/02/24 16:58 BP 114/66 04/03/24 00:40 O2 Del Method Room Air 04/02/24 16:58 Documenting provider has reviewed patient's vital signs: yes Common normals: no apparent distress Respiratory Common normals: clear to auscultation bilaterally Cardio Common normals: regular rate and regular rhythm GI Common normals: Normal to inspection, nondistended, normoactive bowel sounds present Extremity Common normals: no clubbing, cyanosis or edema Results Labs Labs: Short CBC 04/03/24 Range/Units 06:12 WBC 10.1 (4.0-11.0) 10^3/uL Hgb 7.6 L (12.0-16.0) g/dL Hct 24.5 L (36.0-48.0) % Plt Count 153 (150-450) 10^3/uL OB - PN: A/P Plan - Vaginal Delivery day: 2 Plan: routine care, discharge home and follow up 6 weeks Comment: Labs reviewed, hgb is stable Time Spent with Patient Time: Total time spent is greater than 50% in coordination of care (as documented) at patient's floor/unit and/or counseling patient: Total time spent with greater than 50% in coordination of care (as documented) at patient's floor/unit and/or counseling patient: less than 15 minutes
[2024-04-03] MEDS: IBUPROFEN 600 MG TABLET PO (07:10)
[2024-04-03 08:10] VITALS: BP 109/60; PULSE 108; TEMP 36.7
[2024-04-03 08:11] VITALS: BP 109/60; PULSE 108
[2024-04-03] MEDS: DOCUSATE SODIUM 100 MG CAPSULE PO (08:15)
[2024-04-03] MEDS: FERROUS SULFATE 325 MG TABLET PO (08:15)
== END 2024-04-03 12:10 | disposition home or self-care (01) | DRG 806 ==
PROVIDERS: Admitting Provider Obstetrics & Gynecology; Visit Provider Obstetrics & Gynecology
DX: O36.5930 Maternal care for other known or suspected poor fetal growth, third trimester, not applicable or unspecified (principal); O72.1 Other immediate postpartum hemorrhage; Z37.0 Single live birth; O26.893 Other specified pregnancy related conditions, third trimester; Z67.41 Type O blood, Rh negative; Z3A.38 38 weeks gestation of pregnancy
CPT/HCPCS: 36415; 59050; 59410; 80307; 85025; 85027; 85461; 86850; 86900; 86901; J2405; J2791; J2795